=== PATIENT | male | born 1970 | race Caucasian/White ===

== ENCOUNTER 2023-08-16 09:11 | Emergency (ER) | payer OTHER, SELFPAY ==
[2023-08-16 09:17] VITALS: BP 142/78; PULSE 87; RESP 18; TEMP 36.7; O2SAT 100; BMI 24.6
--- NOTE | 2023-08-16 09:26 | CT_ITS ---
The [address] [address] Patient Name: REINA FARRELL MRN: [id number] date: 1970 Sex: M Assigned Patient Location: ER Current Patient Location: ER Accession/Order Number: [id number] Exam Date: 08/16/2023 09:40 Report Date: 08/16/2023 10:13 At the request of: BERNIE MORENO Procedure: CT abdomen pelvis w con EXAM: CT abdomen pelvis w con HISTORY: intermittent vomiting for months, diabetic COMPARISON: None. TECHNIQUE: 100 cc Omnipaque 300 Findings: ABDOMEN: The liver, gallbladder, spleen, a curious, and adrenal glands are unremarkable. There is mild nonspecific bilateral perinephric fat stranding. No renal stones or collecting system dilatation. The bilateral ureters are nondilated. Evaluation of the bowel is limited given the absence of oral contrast. There is wall thickening throughout the colon. This likely relates to distention with the exception of the wall thickening extending from the distal descending colon through the rectum. No bowel obstruction. The appendix is nondilated. The aorta is normal caliber. Mild atherosclerotic disease. No enlarged abdominal lymph nodes or free abdominal fluid. Pelvis: Mild circumferential bladder wall thickening likely relates to lack of distention. No calculi. The prostate is nonenlarged. No enlarged pelvic lymph nodes or free pelvic fluid. No aggressive sclerotic or lytic osseous lesions. There is an age-indeterminate mild T11 superior endplate compression fracture with approximately 10% loss of vertebral body height. CT/CT abdomen pelvis w con IMPRESSION: 1. Findings concerning for distal left hemicolonic colitis. 2. Mild T11 superior endplate age indeterminate compression fracture. Electronically authenticated by: DONNA REESE Date: 08/16/2023 10:13
--- NOTE | 2023-08-16 09:26 | ECG_ITS ---
The [facility] Test Date: 2023-08-16 Pat Name: REINA FARRELL Department: Room: - Gender: Male [employer]: : 1970 Requested By: [id number] Order Number: [id number] Reading MD: SHEILA HUMPHRIES Measurements Intervals [place] Rate: 77 P: 47 NM: 202 QRS: 4 QRSD: 78 T: 57 QT: 390 QTc: 422 Interpretive Statements 1100 Sinus rhythm 1470 with occasional supraventricular premature complexes 2420 RSR (QR) in lead V1/V2, consistent with right ventricular conduction delay 9140 abnormal rhythm ECG No previous ECG available for comparison Electronically Signed On 08-16-2023 22:19:24 EDT by SHEILA HUMPHRIES
--- NOTE | 2023-08-16 09:27 | ED_ITS ---
HPI - Nausea/Vomiting/Diarrhea General Chief complaint: Nausea/Vomiting/Diarrhea Stated complaint: NAUSEA AND VOMITING Time Seen by Provider: 08/16/23 09:19 Source: patient Mode of arrival: walk-in Limitations: no limitations History of Present Illness HPI Narrative: 53-year-old male presents for intermittent vomiting. He's been having this issue for months and he was at another hospital yesterday. He was referred to gastrointestinal specialist but they wouldn't see him for uncertain reason. he does not complain of abdominal pain. He was switched from metformin to Victoza several months ago. no fever or hematemesis. He's never had endoscopy. Related Data Home Medications Medication Instructions Recorded Confirmed liraglutide 0.6 mg/0.1 mL (18 mg/3 See Rx Instructions subcut .COMPLEX 08/16/23 08/16/23 mL) subcutaneous pen injector (Victoza 2-Lg) Previous Rx's Medication Instructions Recorded ciprofloxacin HCl 500 mg tablet 500 mg PO Q12H #20 tabs 08/16/23 (Cipro) metronidazole 500 mg tablet 500 mg PO TID #30 tabs 08/16/23 ondansetron HCl 4 mg tablet 4 mg PO Q6H PRN nausea and 08/16/23 vomiting #20 tabs Allergies Allergy/AdvReac Type Severity Reaction Status Date / Time bupropion [From Wellbutrin] AdvReac Intermediate Rash Verified 08/16/23 09:17 Review of Systems ROS Narrative A ten point review of systems is negative except as noted above. PFSH PFSH Social History Smoking status: Never smoker Exam Narrative Exam Narrative: Nurses note and vital signs reviewed and patient is not hypoxic. General: The patient appears well and in no apparent distress. Patient is resting comfortably on cart. Skin: Warm, dry, no pallor noted. There is no rash noted. Head: Normocephalic, atraumatic Eye: Normal conjunctiva, no drainage Ears, Nose, Mouth, and Throat: oral mucosa is moist. Nares patent. Cardiovascular: Regular Rate and Rhythm Respiratory: Patient is in no distress, no accessory muscle use, lungs are clear to auscultation, no wheezing, rales or rhonchi Back: non-tender GI: Normal bowel sounds, no tenderness to palpation, no masses appreciated. No rebound, guarding, or rigidity noted. Musculoskeletal: The patient has no evidence of calf tenderness, no pitting edema, symmetrical pulses noted bilaterally Neurological: A&O, normal speech Psychiatric: Cooperative Constitutional Vital Signs, click to edit/add: Last Vital Signs Temp 98.1 F 08/16/23 09:17 Pulse 87 08/16/23 09:17 Resp 18 08/16/23 09:17 BP 142/78 H 08/16/23 09:17 Pulse Ox 100 08/16/23 09:17 O2 Del Method Room Air 08/16/23 09:17 Course Vital Signs Vital signs: Vital Signs Temperature 98.1 F 08/16/23 09:17 Pulse Rate 87 08/16/23 09:17 Respiratory Rate 18 08/16/23 09:17 Blood Pressure 142/78 H 08/16/23 09:17 Pulse Oximetry 100 08/16/23 09:17 Oxygen Delivery Method Room Air 08/16/23 09:17 Temperature 98.1 F 08/16/23 09:17 Pulse Rate 87 08/16/23 09:17 Respiratory Rate 18 08/16/23 09:17 Blood Pressure 142/78 H 08/16/23 09:17 Pulse Oximetry 100 08/16/23 09:17 Oxygen Delivery Method Room Air 08/16/23 09:17 MDM - Nausea/Vomiting/Diarrhea MDM Narrative Medical decision making narrative: blood work is nonspecific. CT per radiologist shows colitis. He doesn't require admission to the hospital and he is described Cipro and Flagyl and is referred to general surgery for follow-up. Treatment diagnosis and follow-up were discussed with the patient. Differential Diagnosis Differential diagnosis: Likely gastroenteritis, drug-induced nausea and vomiting, dehydration and other (colitis, diverticulitis, esophagitis, duodenitis) Lab Data Attestation: I reviewed the patient's lab results. Labs: Lab Results 08/16/23 Range/Units 09:30 WBC 6.3 (4.0-11.0) 10^3/uL RBC 4.09 L (4.70-6.10) 10^6/uL Hgb 13.7 L (14.0-18.0) g/dL Hct 38.4 L (42.0-54.0) % MCV 93.9 (80.0-94.0) fL MCH 33.5 (25.9-34.0) pg MCHC 35.7 H (29.9-35.2) g/dL RDW 12.8 (11.0-15.0) % Plt Count 203 (150-450) 10^3/uL MPV 10.0 (9.5-13.5) fL Neut % (Auto) 63.2 (43.0-75.0) % Lymph % (Auto) 26.9 (20.5-60.0) % [place] % (Auto) 7.3 (1.7-12.0) % Eos % (Auto) 1.3 (0.9-7.0) % Baso % (Auto) 0.8 (0.2-2.0) % Neut # (Auto) 4.0 (1.4-6.5) 10^3/uL Lymph # (Auto) 1.7 (1.2-3.8) 10^3/uL [place] # (Auto) 0.5 (0.3-0.8) 10^3/uL Eos # (Auto) 0.1 (0.0-0.7) 10^3/uL Baso # (Auto) 0.1 (0.0-0.1) 10^3/uL Abs Immat Gran (auto) 0.03 (0.00-0.03) 10^3/uL Imm/Tot Granulo (auto) 0.5 (0.0-0.5) % Sodium 136 (136-145) mmol/L Potassium 3.9 (3.5-5.1) mmol/L Chloride 99 (98-107) mmol/L Carbon Dioxide 27.9 (21.0-32.0) mmol/L Anion Gap 13.0 BUN 18.0 (7.0-18.0) mg/dL Creatinine 1.40 H (0.70-1.30) mg/dL Est GFR ( Amer) >60 (>=60) Est GFR (Non-Af Amer) 53 L (>=60) BUN/Creatinine Ratio 12.9 Glucose 308 H (74-106) mg/dL Calcium 8.6 (8.5-10.1) mg/dL Total Bilirubin 0.6 (0.2-1.0) mg/dL Direct Bilirubin 0.1 (0.0-0.2) mg/dL AST 11 L (15-37) U/L ALT 22 (16-63) U/L Alkaline Phosphatase 70 (46-116) U/L Total Protein 7.5 (6.4-8.2) g/dL Albumin 3.7 (3.4-5.0) g/dL Globulin 3.8 g/dL Albumin/Globulin Ratio 1.0 Amylase 71 (25-115) U/L Lipase 226.0 (73.0-393.0) U/L Imaging Data CT scan - abdomen: Radiologist's impression: Procedure: CT abdomen pelvis w con EXAM: CT abdomen pelvis w con HISTORY: intermittent vomiting for months, diabetic COMPARISON: None. TECHNIQUE: 100 cc Omnipaque 300 Findings: ABDOMEN: The liver, gallbladder, spleen, a curious, and adrenal glands are unremarkable. There is mild nonspecific bilateral perinephric fat stranding. No renal stones or collecting system dilatation. The bilateral ureters are nondilated. Evaluation of the bowel is limited given the absence of oral contrast. There is wall thickening throughout the colon. This likely relates to distention with the exception of the wall thickening extending from the distal descending colon through the rectum. No bowel obstruction. The appendix is nondilated. The aorta is normal caliber. Mild atherosclerotic disease. No enlarged abdominal lymph nodes or free abdominal fluid. Pelvis: Mild circumferential bladder wall thickening likely relates to lack of distention. No calculi. The prostate is nonenlarged. No enlarged pelvic lymph nodes or free pelvic fluid. No aggressive sclerotic or lytic osseous lesions. There is an age-indeterminate mild T11 superior endplate compression fracture with approximately 10% loss of vertebral body height. IMPRESSION: 1. Findings concerning for distal left hemicolonic colitis. 2. Mild T11 superior endplate age indeterminate compression fracture. Electronically authenticated by: DONNA REESE Date: 08/16/2023 10:13 ECG Data Attestation: I personally reviewed and interpreted this ECG as follows: (EKG on my interpretation shows normal sinus rhythm without acute change and a rate of 77.) Discharge Plan Discharge Chief Complaint: Nausea/Vomiting/Diarrhea Clinical Impression: Colitis Patient Disposition: Home, Self-Care Time of Disposition Decision: 10:26 Condition: Good Mode of Transportation: Private Vehicle Prescriptions / Home Meds: New ciprofloxacin HCl [Cipro] 500 mg tablet 500 mg PO Q12H Qty: 20 0RF metronidazole 500 mg tablet 500 mg PO TID Qty: 30 0RF ondansetron HCl 4 mg tablet 4 mg PO Q6H PRN (Reason: nausea and vomiting) Qty: 20 0RF No Action Victoza 2-Lg 0.6 mg/0.1 mL (18 mg/3 mL) pen injector See Rx Instructions .ROUTE .COMPLEX Rx Instructions: inject 0.6mg subcutaneously once daily x 7 days; then 1.2mg daily, not to exceed 1.8mg/day Instructions: Colitis (ED) Additional Instructions: F/U with Dr Castro Stand Alone Forms: Portal Instructions Referrals: Physician,Non-Staff, MD [Primary Care Provider] - 1 week
[2023-08-16] MEDS: ONDANSETRON PF 4 MG/2 ML VIAL IV (09:31)
[2023-08-16] MEDS: 0.9 % SODIUM CHLORIDE 1,000 ML 1000 ML IV (09:31)
[2023-08-16 09:37] LABS: Basophils Absolute Auto 0.1 10^3/uL (0.0-0.1); Basophils Percent Auto 0.8 % (0.2-2.0); Eosinophils Absolute Auto 0.1 10^3/uL (0.0-0.7); Eosinophils Percent Auto 1.3 % (0.9-7.0); Hematocrit 38.4 % (42.0-54.0); Hemoglobin 13.7 g/dL (14.0-18.0); Immature Granulocytes Abs Auto 0.03 10^3/uL (0.00-0.03); Immature Granulocytes Pct Auto 0.5 % (0.0-0.5); Lymphocytes Absolute Auto 1.7 10^3/uL (1.2-3.8); Lymphocytes Percent Auto 26.9 % (20.5-60.0); Mean Corpuscular HGB Conc 35.7 g/dL (29.9-35.2); Mean Corpuscular Hemoglobin 33.5 pg (25.9-34.0); Mean Corpuscular Volume 93.9 fL (80.0-94.0); Monocytes Absolute Auto 0.5 10^3/uL (0.3-0.8); Monocytes Percent Auto 7.3 % (1.7-12.0); Neutrophils Percent Auto 63.2 % (43.0-75.0); Platelet Count 203 10^3/uL (150-450); Red Blood Count 4.09 10^6/uL (4.70-6.10); Red Cell Distribution Width 12.8 % (11.0-15.0); White Blood Count 6.3 10^3/uL (4.0-11.0)
[2023-08-16 09:44] LABS: BUN Creatinine Ratio 12.9; Calcium 8.6 mg/dL (8.5-10.1); Carbon Dioxide 27.9 mmol/L (21.0-32.0); Chloride 99 mmol/L (98-107); Estimated GFR (African America >60 (>=60); Estimated GFR (Non-African Ame 53 (>=60); Glucose 308 mg/dL (74-106); Potassium 3.9 mmol/L (3.5-5.1); Sodium 136 mmol/L (136-145)
[2023-08-16 09:49] LABS: Alanine Aminotransferase 22 U/L (16-63); Albumin Level 3.7 g/dL (3.4-5.0); Alkaline Phosphatase 70 U/L (46-116); Amylase 71 U/L (25-115); Aspartate Amino Transferase 11 U/L (15-37); Bilirubin Direct 0.1 mg/dL (0.0-0.2); Bilirubin Total 0.6 mg/dL (0.2-1.0); Globulin 3.8 g/dL; Total Protein 7.5 g/dL (6.4-8.2)
== END 2023-08-16 10:40 | disposition home or self-care (01) ==
PROVIDERS: Emergency Provider Emergency Medicine
DX: K52.9 Noninfective gastroenteritis and colitis, unspecified (principal); Z79.85 Long-term (current) use of injectable non-insulin antidiabetic drugs
CPT/HCPCS: 36415; 74177; 80048; 80076; 81001; 82150; 83690; 85025; 93005; 96374; 99285; Q9967

== ENCOUNTER 2023-09-20 14:42 | Outpatient (OUT) | payer OTHER, SELFPAY | END 2023-09-20 14:43 | disposition home or self-care (01) | LOC: PST 14:43 | PROVIDERS: Visit Provider Surgery | DX: Z01.818 Encounter for other preprocedural examination (principal); R11.10 Vomiting, unspecified; K52.9 Noninfective gastroenteritis and colitis, unspecified ==

== ENCOUNTER 2023-11-02 07:29 | Day surgery (SDC) | payer OTHER, SELFPAY ==
[2023-11-02 07:45] VITALS: BMI 26.9
[2023-11-02 07:50] LABS: Glucometer 247 mg/dL (74-106)
[2023-11-02] MEDS: LACTATED RINGER'S SOLUTION 1,000 ML 50 ML IV (07:56)
--- NOTE | 2023-11-02 08:34 | P.GSPRC_ITS ---
Date of procedure: 11/02/23 Indications for Procedure: nausea/ vomiting/weight loss/abnormal ct gi tract Pre-op diagnosis: nausea/vomiting/weight loss/ abnormal ct gi tract Post-op diagnosis: other (esophagitis rule out Ochoa's esophagus; Normal stomach and duodenum; poor bowel prep colon Will need to return at later dateafter two days of clear liquids and different bowel prep) Procedure: colonoscopy EGD with biopsy antrumand distal esophagus and midesophagus Findings: esophagitis rule out Ochoa's esophagus GE junction , stomach and duodenum Normal colon but bowel prep was suboptimal patient, will need to return and later date for repeat colonoscopy after clear liquids and different bowel prep. Anesthesia: MAC Surgeon: Rudy Campbell Procedure Summary: The patient was taken to the operating suite and placed in the left lateral position after being given IV conscious sedation as above.the Olympus EGD scope was advanced under direct visualization to the posterior pharynx esophagus into the stomach into the 1st 2nd 3rd and 4th portions of the duodenum which were n ormal. There were no ulcers polyps or tumors seen. The scope was returned to the stomach retroflexed on itself looking the GE junction which was normal. Random biopsies of the antrum were taken to rule out gastritis and H. pylori on appeared grossly normal. The scope was returned to the distal esophagus where it appears that he has a short segment Ochoa's esophagus and multiple biopsies were taken in all quadrants and hemostasis maintained. The scope was then returned to the mid esophagus where there was a papular lesion that was biopsied ?2 and hemostasis maintained. The rest the esophagus was normal. Rectal digital exam normal. No external? hemorrhoids noted. The Olympus video colonoscope was then advanced under direct visualization into the rectum, sigmoid colon, descending colon, transverse colon, and ascending colon to the ileocecal valve which was visualized. appendiceal lumen was visualized but patient had a large amount of fecal materialthroughout the colon this was a subo ptimal prep. Anything small could've been missed. There were no obvious cancers but again it was an incomplete prep and patient will need to return at a later date. There were no polyps, tumors, or diverticular disease seen. The scope was then slowly withdrawn with air being desufflated as the scope was withdrawn and again finding no abnormalities. There were no internal hemorrhoids or external hemorrhoids noted. The patient tolerated the procedure well and went to the recovery area in satisfactory condition. Patient will be advised to return at a later date for repeat colonoscopy with a different bowel prep and two days of clear liquids because anything small could've been missed due to the large amount of stool present throughout the colon. Estimated blood loss (mL): 0 Complications: No Condition: stable Disposition: PACU
[2023-11-02 09:32] VITALS: BP 95/58; PULSE 60; RESP 16; O2SAT 98
[2023-11-02 10:02] VITALS: BP 99/55; PULSE 65; RESP 16; O2SAT 94
[2023-11-02 10:50] VITALS: BP 93/62; PULSE 54; RESP 16; O2SAT 92
[2023-11-03 15:52] LABS: H Pylori Tissue, Urease Negative
--- OUTSIDE RECORDS SUMMARY | 2023-11-16 01:40 | XMS_ITS | CCD ---
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 above: Performed By: #### C BC, LIPASE, HEPATIC, BMP #### [facility] [address] Bilirubin.indirect [Mass/Vol] 0.20 mg/dL High 0.03-0 .18 [facility] Comment on above: Performed By: #### C BC, LIPASE, HEPATIC, BMP #### [facility] [address] Globulin (S) [Mass/Vol] 3.3 g/dL Normal [facility] Comment on above: Performed By: #### C BC, LIPASE, HEPATIC, BMP #### [facility] [address] Protein [Mass/Vol] 7.6 g/dL Normal 6.4-8.9 [facility] Comment on above: Performed By: #### C BC, LIPASE, HEPATIC, BMP #### [facility] [address] [place] [address] Leukocytes [#/volume] correc billy for nucleated erythrocytes in Blood by Automated counOrdered By: Kourtney Samson on 08-15-2023 WBC corrected for nucl RBC A uto (Bld) [#/Vol] 6.2 10*3/uL 4.1-10.5 [facility] Lipaseon 08-15-2023 Lipase [Catalytic activity/Vol] 59.0 U/L Normal 11.0 -82.0 [facility] Comment on above: Result Comment: PERF ORMED BY: [place] [id number] PATHOLOGIST BYPRODUCT ENGINEER ANIL GUAMAN M.D. Performed By: #### R AUDRA PANEL UPP., BIOFIRECOVNOTDE #### [facility] [address] Lipase [Enzymatic activity/v olume] in Serum or PlasmaOrdered By: Kourtney Samson on 08-15-2023 Lipase [Catalytic activity/Vol] 59.0 U/L 11.0 -82.0 [facility] Lymphocytes Auto (Bld) [#/Vo l]Ordered By: Kourtney Samson on 08-15-2023 Lymphocytes (Bld) [#/Vol] 2.4 10*3/uL 1.00-4.8 [facility] Lymphocytes/100 WBC Auto (Bl d)Ordered By: Kourtney Samson on 08-15-2023 Lymphocytes/100 WBC (Bld) 38.6 % . [facility] MCH Auto (RBC) [Entitic mass ]Ordered By: Kourtney Samson on 08-15-2023 MCH (RBC) [Entitic mass] 32.8 pg 27.5-35.2 [facility] MCHC Auto (RBC) [Mass/Vol]Or dered By: Kourtney Samson on 08-15-2023 MCHC (RBC) [Mass/Vol] 34.9 g/dL 32.5-35.6 [facility] MCV Auto (RBC) [Entitic vol] Ordered By: Kourtney Samson on 08-15-2023 MCV (RBC) [Entitic vol] 94.0 fL 83.5-101 [facility] Monocyte distribution width [Entitic volume] in Blood by AutomatedOrdered By: Kourtney Samson on 08-15-2023 Monocyte distribution width Auto (Bld) [Entitic vol] 17.28 % 0.00-20.00 [facility] Monocytes Auto (Bld) [#/Vol] Ordered By: Kourtney Samson on 08-15-2023 Monocytes (Bld) [#/Vol] 0.4 10*3/uL 0.0-0.8 [facility] Monocytes/100 WBC Auto (Bld) Ordered By: Kourtney Samson on 08-15-2023 Monocytes/100 WBC (Bld) 7.2 % . [facility] Neutrophils Auto (Bld) [#/Vo l]Ordered By: Kourtney Samson on 08-15-2023 Neutrophils (Bld) [#/Vol] 3.2 10*3/uL 1.8-7.7 [facility] Neutrophils/100 WBC Auto (Bl d)Ordered By: Kourtney Samson on 08-15-2023 Neutrophils/100 WBC (Bld) 51.7 % . [facility] No Panel InformationOrdered By: Kourtney Samson on 08-15-2023 Estimated GFR (CKD-EPI) > 60.0 mL/Min [facility] Creatinine Clearanc e (Chem 69.19 [facility] Nucleated erythrocytes [Pres ence] in Blood by Automated countOrdered By: Kourtney Samson on 08-15-2023 Nucleated RBC Auto Ql (Bld) 0.1 /100{WBC} 0-0.5 [facility] Platelet mean volume Auto (B ld) [Entitic vol]Ordered By: Kourtney Samson on 08-15-2023 Platelet mean volume (Bld) [Entitic vol] 8.3 fL 6.6-10.1 [facility] Platelets Auto (Bld) [#/Vol] Ordered By: Kourtney Samson on 08-15-2023 Platelets (Bld) [#/Vol] 202 10*3/uL 150-450 [facility] Potassium [Moles/volume] in Serum or PlasmaOrdered By: Kourtney Samson on 08-15-2023 Potassium [Moles/Vol] 4.1 mmol/L 3.5-5.1 [facility] Protein [Mass/volume] in Ser um or PlasmaOrdered By: Kourtney Samson on 08-15-2023 Protein [Mass/Vol] 7.6 g/dL 6.4-8.9 [facility] RBC Auto (Bld) [#/Vol]Ordere d By: Kourtney Samson on 08-15-2023 RBC (Bld) [#/Vol] 4.35 10*6/uL 3.90-5.60 [facility] Serum or plasma albumin/glob ulin mass ratioOrdered By: Kourtney Samson on 08-15-2023 Albumin/Globulin [Mass ratio] 1.3 {ratio} [facility] Serum or plasma anion gap de terminationOrdered By: Kourtney Samson on 08-15-2023 Anion gap [Moles/Vol] 11.8 mmol/L 6.0-15.0 [facility] Serum or plasma non-glucuron idated bilirubin measurement (mass/volume)Ordered By: Kourtney Samson on 08-15-2023 Bilirubin.indirect [Mass/Vol] 0.9 mg/dL [facility] Sodium [Moles/volume] in Ser um or PlasmaOrdered By: Kourtney Samson on 08-15-2023 Sodium [Moles/Vol] 135 mmol/L 136-145 [facility] Urea nitrogen [Mass/volume] in Serum or PlasmaOrdered By: Kourtney Samson on 08-15-2023 Urea nitrogen [Mass/Vol] 23 mg/dL 7-25 [facility] WBC Auto (Bld) [#/Vol]Ordere d By: Kourtney Samson on 08-15-2023 WBC (Bld) [#/Vol] 6.2 10*3/uL 4.1-10.5 [facility] Alanine aminotransferase [En zymatic activity/volume] in Serum or PlasmaOrdered By: Grayson Duvall on 07-23-2023 ALT [Catalytic activity/Vol] 19 U/L 7-52 [facility] Albumin [Mass/volume] in Ser um or Plasma by Bromocresol green (BCG) dye binding methoOrdered By: Grayson Duvall on 07-23-2023 Albumin BCG dye [Mass/Vol] 4.7 g/dL 3.5-5.7 [facility] Alkaline phosphatase [Enzyma tic activity/volume] in Serum or PlasmaOrdered By: Grayson Duvall on 07-23-2023 ALP [Catalytic activity/Vol] 65 U/L 34-104 [facility] Aspartate aminotransferase [ Enzymatic activity/volume] in Serum or PlasmaOrdered By: Grayson Duvall on 07-23-2023 AST [Catalytic activity/Vol] 16 U/L 13-39 [facility] Basophils Auto (Bld) [#/Vol] Ordered By: Grayson Duvall on 07-23-2023 Basophils (Bld) [#/Vol] 0.1 10*3/uL 0.0-0.2 [facility] Basophils/100 WBC Auto (Bld) Ordered By: Grayson Duvall on 07-23-2023 Basophils/100 WBC (Bld) 0.8 % . [facility] Bilirubin.total [Mass/volume ] in Serum or PlasmaOrdered By: Grayson Duvall on 07-23-2023 Bilirubin [Mass/Vol] 0.8 mg/dL 0.3-1.0 [facility] Calcium [Mass/volume] in Ser um or PlasmaOrdered By: Grayson Duvall on 07-23-2023 Calcium [Mass/Vol] 9.3 mg/dL 8.6-10.3 [facility] Carbon dioxide, total [Moles /volume] in Serum or PlasmaOrdered By: Grayson Duvall on 07-23-2023 CO2 [Moles/Vol] 28.5 mmol/L 21.0-31.0 [facility] Chloride [Moles/volume] in S tino or PlasmaOrdered By: Grayson Duvall on 07-23-2023 Chloride [Moles/Vol] 95 mmol/L 98-107 [facility] Complete Blood Count Auto Di ffon 07-23-2023 Basophils (Bld) [#/Vol] 0.1 10*3/uL Normal 0.0-0.2 [facility] Comment on above: Result Comment: PERF ORMED BY: [place] [address] PATHOLOGIST BYPRODUCT ENGINEER ANIL GUAMAN M.D. Performed By: #### C MP, TSH3, LIPID #### [facility] [address] [place] [address] [place] Basophils/100 WBC (Bld) 0.8 % Normal . [facility] Comment on above: Performed By: #### C MP, TSH3, LIPID #### [facility] [address] [place] [address] [place] Eosinophils (Bld) [#/Vol] 0.1 10*3/uL Normal 0.0-0.45 [facility] Comment on above: Performed By: #### C MP, TSH3, LIPID #### [facility] [address] [place] [address] [place] Eosinophils/100 WBC (Bld) 1.1 % Normal . [facility] Comment on above: Performed By: #### C MP, TSH3, LIPID #### [address] Erythrocyte distribution wid th (RBC) [Ratio] 13.1 % Normal 12.0-14.8 [facility] Comment on above: Performed By: #### C MP, TSH3, LIPID #### [address] Hematocrit (Bld) [Volume fraction] 39.0 % Normal 38.8-50.0 [facility] Comment on above: Performed By: #### C MP, TSH3, LIPID #### [address] Hemoglobin (Bld) [Mass/Vol] 13.6 g/dL Normal 13.0-17. 0 [facility] Comment on above: Performed By: #### C MP, TSH3, LIPID #### [address] Lymphocytes (Bld) [#/Vol] 2.2 10*3/uL Normal 1.00-4.8 [facility] Comment on above: Performed By: #### C MP, TSH3, LIPID #### [address] Lymphocytes/100 WBC (Bld) 23.0 % Normal . [facility] Comment on above: Performed By: #### C MP, TSH3, LIPID #### [address] MCH (RBC) [Entitic mass] 32.5 pg Normal 27.5-35.2 [facility] Comment on above: Performed By: #### C MP, TSH3, LIPID #### [address] MCV (RBC) [Entitic vol] 93.2 fL Normal 83.5-101 [facility] Comment on above: Performed By: #### C MP, TSH3, LIPID #### [address] [place] [address] [place] Mean Corpuscular HGB Conc 34.8 g/dL Normal 32.5-35.6 [facility] Comment on above: Performed By: #### C MP, TSH3, LIPID #### [facility] [address] Monocytes (Bld) [#/Vol] 0.6 10*3/uL Normal 0.0-0.8 [facility] Comment on above: Performed By: #### C MP, TSH3, LIPID #### [facility] [address] [place] [address] [place] Monocytes/100 WBC (Bld) 18.02 % Normal 0.00-20.00 [facility] Comment on above: Performed By: #### C MP, TSH3, LIPID #### [facility] [address] [place] [address] [place] Monocytes/100 WBC (Bld) 6.7 % Normal . [facility] Comment on above: Performed By: #### C MP, TSH3, LIPID #### [facility] [address] [place] [address] [place] Neutrophils (Bld) [#/Vol] 6.5 10*3/uL Normal 1.8-7.7 [facility] Comment on above: Performed By: #### C MP, TSH3, LIPID #### [facility] [address] [place] [address] [place] Neutrophils/100 WBC (Bld) 68.4 % Normal . [facility] Comment on above: Performed By: #### C MP, TSH3, LIPID #### [facility] [address] [place] [address] [place] NRBC% 0.0 /100{WBC} Normal 0-0.5 [facility] Comment on above: Performed By: #### C MP, TSH3, LIPID #### [facility] [address] [place] [address] [place] Platelet mean volume (Bld) [Entitic vol] 8.5 fL Normal 6.6-10.1 [facility] Comment on above: Performed By: #### C MP, TSH3, LIPID #### [address] Platelets (Bld) [#/Vol] 235 10*3/uL Normal 150-450 [facility] Comment on above: Performed By: #### C MP, TSH3, LIPID #### [address] RBC (Bld) [#/Vol] 4.18 10*6/uL Normal 3.90-5.60 [facility] Comment on above: Performed By: #### C MP, TSH3, LIPID #### [address] WBC (Bld) [#/Vol] 9.5 10*3/uL Normal 4.1-10.5 [facility] Comment on above: Performed By: #### C MP, TSH3, LIPID #### [address] Comprehensive Metabolic Pane rudolph 07-23-2023 Albumin [Mass/Vol] 4.7 g/dL Normal 3.5-5.7 [facility] Comment on above: Performed By: #### C MP, TSH3, LIPID #### [address] Albumin/Globulin [Mass ratio] 1.4 {ratio} Normal [facility] Comment on above: Performed By: #### C MP, TSH3, LIPID #### [address] ALP [Catalytic activity/Vol] 65 U/L Normal 34-104 [facility] Comment on above: Performed By: #### C MP, TSH3, LIPID #### [address] ALT [Catalytic activity/Vol] 19 U/L Normal 7-52 [facility] Comment on above: Performed By: #### C MP, TSH3, LIPID #### [address] Anion gap [Moles/Vol] 16.3 mmol/L High 6.0-15.0 [facility] Comment on above: Performed By: #### C MP, TSH3, LIPID #### [facility] [address] AST [Catalytic activity/Vol] 16 U/L Normal 13-39 [facility] Comment on above: Performed By: #### C MP, TSH3, LIPID #### [facility] [address] Bilirubin [Mass/Vol] 0.8 mg/dL Normal 0.3-1.0 [facility] Comment on above: Performed By: #### C MP, TSH3, LIPID #### [facility] [address] [place] [address] Calcium [Mass/Vol] 9.3 mg/dL Normal 8.6-10.3 [facility] Comment on above: Performed By: #### C MP, TSH3, LIPID #### [address] Chloride [Moles/Vol] 95 mmol/L Low 98-107 [facility] Comment on above: Performed By: #### C MP, TSH3, LIPID #### [address] CO2 [Moles/Vol] 28.5 mmol/L Normal 21.0-31.0 [facility] Comment on above: Performed By: #### C MP, TSH3, LIPID #### [facility] [address] [place] [address] Creatinine [Mass/Vol] 1.08 mg/dL Normal 0.70-1.30 [facility] Comment on above: Performed By: #### C MP, TSH3, LIPID #### [facility] [address] [place] [address] Creatinine Clr Calc Pharmacy 83.28 Normal [facility] Comment on above: Result Comment: PERF ORMED BY: [place] [address] PATHOLOGIST BYPRODUCT ENGINEER JIANLAN SUN M.D. Performed By: #### C MP, TSH3, LIPID #### [facility] [address] [place] [address] [place] GFR/1.73 sq M.predicted MDRD (S/P/Bld) [Vol rate/Area] mL/min/{1.73_m2} Normal [facility] Comment on above: Performed By: #### C MP, TSH3, LIPID #### [facility] [address] [place] [address] [place] Globulin (S) [Mass/Vol] 3.3 g/dL Normal [facility] Comment on above: Performed By: #### C MP, TSH3, LIPID #### [facility] [address] Glucose [Mass/Vol] 164 mg/dL High 70-100 [facility] Comment on above: Result Comment: [place] Glucose Reference Range is dependent on time and content of last meal. Glucose of more than 200 mg/dL in a nonstressed, ambulatory subject supports the diagnosis of Diabetes Mellitus. ADA recommended reference range Performed By: #### C MP, TSH3, LIPID #### [facility] [address] [place] [address] [place] Potassium [Moles/Vol] 3.8 mmol/L Normal 3.5-5.1 [facility] Comment on above: Performed By: #### C MP, TSH3, LIPID #### [facility] [address] [place] [address] [place] Protein [Mass/Vol] 8.0 g/dL Normal 6.4-8.9 [facility] Comment on above: Performed By: #### C MP, TSH3, LIPID #### [facility] [address] [place] [address] [place] Sodium [Moles/Vol] 136 mmol/L Normal 136-145 [facility] Comment on above: Performed By: #### C MP, TSH3, LIPID #### [facility] [address] [place] [id number] [place] Urea nitrogen [Mass/Vol] 14 mg/dL Normal 7-25 [facility] Comment on above: Performed By: #### C MP, TSH3, LIPID #### [facility] [address] [place] [id number] [facility] Creatinine [Mass/volume] in Serum or PlasmaOrdered By: Grayson Duvall on 07-23-2023 Creatinine [Mass/Vol] 1.08 mg/dL 0.70-1.30 [facility] ECG 12 lead ECGon 07-23-2023 ECG 12 lead ECG [facility] [place] [address] [place] [address] Electrocardiograph Report Signed 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 MR#: [id number] : 1970 Acct:[id number] Age/Sex: 53 / M ADM Date: 07/22/23 Loc: ER Room: Type: [facility] ER Attending Dr: Ordering Provider: Grayson Duvall DO Date of Service: 07/23/23 ECG/ECG 12 lead ECG: Dizziness Copies to: Test Reason : Blood Pressure : / mmHG Vent. Rate : 074 BPM Atrial Rate : 074 BPM P-R Int : 178 ms QRS Dur : 084 ms QT Int : 422 ms P-R-T Axes : 043 -08 035 degrees QTc Int : 468 ms Normal sinus rhythm Minimal voltage criteria for LVH, may be normal variant Cannot rule out Anterior infarct , age undetermined Abnormal ECG When compared with ECG of 30-JUN-2023 10:23, Confirmed by GRAYSON DUVALL DO ([id number]) on 07/23/2023 5:17:38 AM Referred By: Electronically Signed By:GRAYSON DUVALL DO Transcribed By: MUS Signed By Grayson Duvall DO 0517 Normal [facility] Eosinophils Auto (Bld) [#/Vo l]Ordered By: Grayson Duvall on 07-23-2023 Eosinophils (Bld) [#/Vol] 0.1 10*3/uL 0.0-0.45 [facility] Eosinophils/100 WBC Auto (Bl d)Ordered By: Grayson Duvall on 07-23-2023 Eosinophils/100 WBC (Bld) 1.1 % . [facility] Erythrocyte distribution wid th Auto (RBC) [Ratio]Ordered By: Grayson Duvall on 07-23-2023 Erythrocyte distribution wid th (RBC) [Ratio] 13.1 % 12.0-14.8 [facility] Globulin Calc (S) [Mass/Vol] Ordered By: Grayson Duvall on 07-23-2023 Globulin (S) [Mass/Vol] 3.3 g/dL [facility] Glucose [Mass/volume] in Ser um or PlasmaOrdered By: Grayson Duvall on 07-23-2023 Glucose [Mass/Vol] 164 mg/dL 70-100 [facility] Comment on above: ADA recommended refe rence rangeRandom Glucose Reference Range is dependent on time and content of last meal. Glucose of more than 200 mg/dL in a nonstressed, ambulatory subject supports the diagnosis of Diabetes Mellitus. Hematocrit Auto (Bld) [Volum e fraction]Ordered By: Grayson Duvall on 07-23-2023 Hematocrit (Bld) [Volume fraction] 39.0 % 3 8.8-50.0 [facility] Hemoglobin [Mass/volume] in BloodOrdered By: Grayson Duvall on 07-23-2023 Hemoglobin (Bld) [Mass/Vol] 13.6 g/dL 13.0-17. 0 [facility] Leukocytes [#/volume] correc billy for nucleated erythrocytes in Blood by Automated counOrdered By: Grayson Duvall on 07-23-2023 WBC corrected for nucl RBC A uto (Bld) [#/Vol] 9.5 10*3/uL 4.1-10.5 [facility] Lymphocytes Auto (Bld) [#/Vo l]Ordered By: Grayson Duvall on 07-23-2023 Lymphocytes (Bld) [#/Vol] 2.2 10*3/uL 1.00-4.8 [facility] Lymphocytes/100 WBC Auto (Bl d)Ordered By: Grayson Duvall on 07-23-2023 Lymphocytes/100 WBC (Bld) 23.0 % . [facility] MCH Auto (RBC) [Entitic mass ]Ordered By: Grayson Duvall on 07-23-2023 MCH (RBC) [Entitic mass] 32.5 pg 27.5-35.2 [facility] MCHC Auto (RBC) [Mass/Vol]Or dered By: Grayson Duvall on 07-23-2023 MCHC (RBC) [Mass/Vol] 34.8 g/dL 32.5-35.6 [facility] MCV Auto (RBC) [Entitic vol] Ordered By: Grayson Duvall on 07-23-2023 MCV (RBC) [Entitic vol] 93.2 fL 83.5-101 [facility] Monocyte distribution width [Entitic volume] in Blood by AutomatedOrdered By: Grayson Duvall on 07-23-2023 Monocyte distribution width Auto (Bld) [Entitic vol] 18.02 % 0.00-20.00 [facility] Monocytes Auto (Bld) [#/Vol] Ordered By: Grayson Duvall on 07-23-2023 Monocytes (Bld) [#/Vol] 0.6 10*3/uL 0.0-0.8 [facility] Monocytes/100 WBC Auto (Bld) Ordered By: Grayson Duvall on 07-23-2023 Monocytes/100 WBC (Bld) 6.7 % . [facility] Neutrophils Auto (Bld) [#/Vo l]Ordered By: Grayson Duvall on 07-23-2023 Neutrophils (Bld) [#/Vol] 6.5 10*3/uL 1.8-7.7 [facility] Neutrophils/100 WBC Auto (Bl d)Ordered By: Grayson Duvall on 07-23-2023 Neutrophils/100 WBC (Bld) 68.4 % . [facility] No Panel InformationOrdered By: Grayson Duvall on 07-23-2023 Estimated GFR (CKD-EPI) > 60.0 mL/Min [facility] Creatinine Clearanc e (Chem 83.28 [facility] Nucleated erythrocytes [Pres ence] in Blood by Automated countOrdered By: Grayson Duvall on 07-23-2023 Nucleated RBC Auto Ql (Bld) 0.0 /100{WBC} 0-0.5 [facility] Platelet mean volume Auto (B ld) [Entitic vol]Ordered By: Grayson Duvall on 07-23-2023 Platelet mean volume (Bld) [Entitic vol] 8.5 fL 6.6-10.1 [facility] Platelets Auto (Bld) [#/Vol] Ordered By: Grayson Duvall on 07-23-2023 Platelets (Bld) [#/Vol] 235 10*3/uL 150-450 [facility] Potassium [Moles/volume] in Serum or PlasmaOrdered By: Grayson Duvall on 07-23-2023 Potassium [Moles/Vol] 3.8 mmol/L 3.5-5.1 [facility] Protein [Mass/volume] in Ser um or PlasmaOrdered By: Grayson Duvall on 07-23-2023 Protein [Mass/Vol] 8.0 g/dL 6.4-8.9 [facility] RBC Auto (Bld) [#/Vol]Ordere d By: Grayson Duvall on 07-23-2023 RBC (Bld) [#/Vol] 4.18 10*6/uL 3.90-5.60 [facility] Serum or plasma albumin/glob ulin mass ratioOrdered By: Grayson Duvall on 07-23-2023 Albumin/Globulin [Mass ratio] 1.4 {ratio} [facility] Serum or plasma anion gap de terminationOrdered By: Grayson Duvall on 07-23-2023 Anion gap [Moles/Vol] 16.3 mmol/L 6.0-15.0 [facility] Sodium [Moles/volume] in Ser um or PlasmaOrdered By: Grayson Duvall on 07-23-2023 Sodium [Moles/Vol] 136 mmol/L 136-145 [facility] Troponin I High Sensitivityo n 07-23-2023 Troponin I High Sensitivity 6.6 pg/mL Normal 0.0-20.0 [facility] Comment on above: Result Comment: PERF ORMED BY: [facility] [address] [place] [address] PATHOLOGIST BYPRODUCT ENGINEER ANIL GUAMAN M.D. Performed By: #### C MP, TSH3, LIPID #### [facility] [address] [place] [address] [place] Troponin I.cardiac [Mass/vol ume] in Serum or Plasma by Detection limit <= 0.01 ng/Ordered By: Grayson Duvall on 07-23-2023 Troponin I.cardiac DL <= 0.0 1 ng/mL [Mass/Vol] 6.6 pg/mL 0.0-20.0 [facility] Urea nitrogen [Mass/volume] in Serum or PlasmaOrdered By: Grayson Duvall on 07-23-2023 Urea nitrogen [Mass/Vol] 14 mg/dL 06-21 [facility] WBC Auto (Bld) [#/Vol]Ordere d By: Grayson Duvall on 07-23-2023 WBC (Bld) [#/Vol] 9.5 10*3/uL 4.1-10.5 [facility] XR chest 2V*on 07-23-2023 XR chest 2V* [facility] [place] [address] XRay Report Signed 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 MR#: [id number] : 1970 Acct:[id number] Age/Sex: 53 / M ADM Date: 07/22/23 Loc: ER Room: Type: [facility] ER Attending Dr: Copies to: Grayson Duvall DO Ordering Provider: Grayson Duvall DO Date of Service: 07/23/23 XR/XR chest 2V*: cp, esoph ob Chest 2 views CLINICAL HISTORY: Difficulty swallowing and dry mouth. COMPARISON: Chest 06/24/2023 FINDINGS: Heart normal size. Lungs are clear. No free air. XR/XR chest 2V* IMPRESSION: NO ACUTE CARDIOPULMONARY ABNORMALITY. Impression dictated by: Stevie Flores Jr., D.OMickey07/23/2023 10:31 AM Dictation Location: [place] [address] Transcribed By: [facility] 07/23/23 1031 Dictated By: Stevie Flores Jr, DO 07/23/23 1030 Signed By: 07/23/23 1031 Normal [facility] Alanine aminotransferase [En zymatic activity/volume] in Serum or PlasmaOrdered By: Chen Acosta on 06-30-2023 ALT [Catalytic activity/Vol] 19 U/L [facility] Albumin [Mass/volume] in Ser um or Plasma by Bromocresol green (BCG) dye binding methoOrdered By: Chen Acosta on 06-30-2023 Albumin BCG dye [Mass/Vol] 4.2 g/dL 3.5-5.7 [facility] Alkaline phosphatase [Enzyma tic activity/volume] in Serum or PlasmaOrdered By: Chen Acosta on 06-30-2023 ALP [Catalytic activity/Vol] 59 U/L 34-104 [facility] Aspartate aminotransferase [ Enzymatic activity/volume] in Serum or PlasmaOrdered By: Chen Acosta on 06-30-2023 AST [Catalytic activity/Vol] 14 U/L 13-39 [facility] Basophils Auto (Bld) [#/Vol] Ordered By: Chen Acosta on 06-30-2023 Basophils (Bld) [#/Vol] 0.1 10*3/uL 0.0-0.2 [facility] Basophils/100 WBC Auto (Bld) Ordered By: Chen Acosta on 06-30-2023 Basophils/100 WBC (Bld) 2.0 % . [facility] Beta Hydroxybuterateon 06-30 Beta Hydroxybuterate < 0.10 Normal 0.02-0.27 [facility] [facility] Comment on above: Result Comment: PERF ORMED BY: [place] [id number] PATHOLOGIST BYPRODUCT ENGINEER ANIL GUAMAN M.D. Performed By: #### C MP, TSH3, LIPID #### [address] Beta hydroxybutyrate [Moles/ volume] in Serum or PlasmaOrdered By: Chen Acosta on 06-30-2023 Beta hydroxybutyrate [Moles/Vol] < 0.10 mmol/L 0.02-0.27 [facility] Bilirubin Test strip Ql (U)O rdered By: Chen Acosta on 06-30-2023 Bilirubin Ql (U) Negative Negative [facility] Bilirubin.total [Mass/volume ] in Serum or PlasmaOrdered By: Chen Acosta on 06-30-2023 Bilirubin [Mass/Vol] 0.5 mg/dL 0.3-1.0 [facility] Calcium [Mass/volume] in Ser um or PlasmaOrdered By: Chen Acosta on 06-30-2023 Calcium [Mass/Vol] 9.2 mg/dL 8.6-10.3 [facility] Carbon dioxide, total [Moles /volume] in Serum or PlasmaOrdered By: Chen Acosta on 06-30-2023 CO2 [Moles/Vol] 26.7 mmol/L 21.0-31.0 [facility] Chloride [Moles/volume] in S tino or PlasmaOrdered By: Chen Acosta on 06-30-2023 Chloride [Moles/Vol] 106 mmol/L 98-107 [facility] Color Auto (U)Ordered By: Me adryan Acosta on 06-30-2023 Color (U) Yellow Yellow [facility] Complete Blood Count Auto Di ffon 06-30-2023 Basophils (Bld) [#/Vol] 0.1 10*3/uL Normal 0.0-0.2 [facility] Comment on above: Result Comment: PERF ORMED BY: [place] [address] PATHOLOGIST BYPRODUCT ENGINEER ANIL GUAMAN M.D. Performed By: #### C MP, TSH3, LIPID #### [facility] [address] [place] [address] [place] Basophils/100 WBC (Bld) 2.0 % Normal . [facility] Comment on above: Performed By: #### C MP, TSH3, LIPID #### [facility] [address] [place] [address] [place] Eosinophils (Bld) [#/Vol] 0.1 10*3/uL Normal 0.0-0.45 [facility] Comment on above: Performed By: #### C MP, TSH3, LIPID #### [facility] [address] [place] [address] [place] Eosinophils/100 WBC (Bld) 1.7 % Normal . [facility] Comment on above: Performed By: #### C MP, TSH3, LIPID #### [facility] [address] Erythrocyte distribution wid th (RBC) [Ratio] 12.9 % Normal 12.0-14.8 [facility] Comment on above: Performed By: #### C MP, TSH3, LIPID #### [address] Hematocrit (Bld) [Volume fraction] 36.5 % Low 38.8-50.0 [facility] Comment on above: Performed By: #### C MP, TSH3, LIPID #### [address] Hemoglobin (Bld) [Mass/Vol] 12.8 g/dL Low 13.0-17. 0 [facility] Comment on above: Performed By: #### C MP, TSH3, LIPID #### [address] Lymphocytes (Bld) [#/Vol] 1.6 10*3/uL Normal 1.00-4.8 [facility] Comment on above: Performed By: #### C MP, TSH3, LIPID #### [address] Lymphocytes/100 WBC (Bld) 33.5 % Normal . [facility] Comment on above: Performed By: #### C MP, TSH3, LIPID #### [address] MCH (RBC) [Entitic mass] 32.5 pg Normal 27.5-35.2 [facility] Comment on above: Performed By: #### C MP, TSH3, LIPID #### [address] MCV (RBC) [Entitic vol] 92.7 fL Normal 83.5-101 [facility] Comment on above: Performed By: #### C MP, TSH3, LIPID #### [address] Mean Corpuscular HGB Conc 35.0 g/dL Normal 32.5-35.6 [facility] Comment on above: Performed By: #### C MP, TSH3, LIPID #### [facility] [address] [place] [address] [place] Monocytes (Bld) [#/Vol] 0.3 10*3/uL Normal 0.0-0.8 [facility] Comment on above: Performed By: #### C MP, TSH3, LIPID #### [facility] [address] [place] [address] [place] Monocytes/100 WBC (Bld) 17.72 % Normal 0.00-20.00 [facility] Comment on above: Performed By: #### C MP, TSH3, LIPID #### [facility] [address] [place] [address] [place] Monocytes/100 WBC (Bld) 6.8 % Normal . [facility] Comment on above: Performed By: #### C MP, TSH3, LIPID #### [facility] [address] [place] [address] [place] Neutrophils (Bld) [#/Vol] 2.8 10*3/uL Normal 1.8-7.7 [facility] Comment on above: Performed By: #### C MP, TSH3, LIPID #### [facility] [address] [place] [address] [place] Neutrophils/100 WBC (Bld) 56.0 % Normal . [facility] Comment on above: Performed By: #### C MP, TSH3, LIPID #### [facility] [address] [place] [address] [place] NRBC% 0.1 /100{WBC} Normal 0-0.5 [facility] Comment on above: Performed By: #### C MP, TSH3, LIPID #### [facility] [address] [place] [address] [place] Platelet mean volume (Bld) [Entitic vol] 8.7 fL Normal 6.6-10.1 [facility] Comment on above: Performed By: #### C MP, TSH3, LIPID #### [facility] [address] [place] [address] [place] Platelets (Bld) [#/Vol] 196 10*3/uL Normal 150-450 [facility] Comment on above: Performed By: #### C MP, TSH3, LIPID #### [facility] [address] [place] [address] RBC (Bld) [#/Vol] 3.94 10*6/uL Normal 3.90-5.60 [facility] Comment on above: Performed By: #### C MP, TSH3, LIPID #### [address] WBC (Bld) [#/Vol] 4.9 10*3/uL Normal 4.1-10.5 [facility] Comment on above: Performed By: #### C MP, TSH3, LIPID #### [address] Comprehensive Metabolic Pane rudolph 06-30-2023 Albumin [Mass/Vol] 4.2 g/dL Normal 3.5-5.7 [facility] Comment on above: Performed By: #### C MP, TSH3, LIPID #### [address] Albumin/Globulin [Mass ratio] 1.4 {ratio} Normal [facility] Comment on above: Performed By: #### C MP, TSH3, LIPID #### [address] ALP [Catalytic activity/Vol] 59 U/L Normal 34-104 [facility] Comment on above: Performed By: #### C MP, TSH3, LIPID #### [address] ALT [Catalytic activity/Vol] 19 U/L Normal 7-52 [facility] Comment on above: Performed By: #### C MP, TSH3, LIPID #### [address] Anion gap [Moles/Vol] 10.6 mmol/L Normal 6.0-15.0 [facility] Comment on above: Performed By: #### C MP, TSH3, LIPID #### [facility] [address] AST [Catalytic activity/Vol] 14 U/L Normal 13-39 [facility] Comment on above: Performed By: #### C MP, TSH3, LIPID #### [facility] [address] Bilirubin [Mass/Vol] 0.5 mg/dL Normal 0.3-1.0 [facility] Comment on above: Performed By: #### C MP, TSH3, LIPID #### [facility] [address] Calcium [Mass/Vol] 9.2 mg/dL Normal 8.6-10.3 [facility] Comment on above: Performed By: #### C MP, TSH3, LIPID #### [facility] [address] Chloride [Moles/Vol] 106 mmol/L Normal 98-107 [facility] Comment on above: Performed By: #### C MP, TSH3, LIPID #### [facility] [address] CO2 [Moles/Vol] 26.7 mmol/L Normal 21.0-31.0 [facility] Comment on above: Performed By: #### C MP, TSH3, LIPID #### [facility] [address] [place] [address] [place] Creatinine [Mass/Vol] 0.88 mg/dL Normal 0.70-1.30 [facility] Comment on above: Performed By: #### C MP, TSH3, LIPID #### [facility] [address] [place] [address] [place] Creatinine Clr Calc Pharmacy 102.21 [facility] Comment on above: Performed By: #### C MP, TSH3, LIPID #### [facility] [address] [place] [address] [place] GFR/1.73 sq M.predicted MDRD (S/P/Bld) [Vol rate/Area] mL/min/{1.73_m2} [facility] Comment on above: Performed By: #### C MP, TSH3, LIPID #### [facility] [address] Globulin (S) [Mass/Vol] 2.9 g/dL Normal [facility] Comment on above: Performed By: #### C MP, TSH3, LIPID #### [facility] [address] Glucose [Mass/Vol] 180 mg/dL High 70-100 [facility] Comment on above: Result Comment: [facility] Glucose Reference Range is dependent on time and content of last meal. Glucose of more than 200 mg/dL in a nonstressed, ambulatory subject supports the diagnosis of Diabetes Mellitus. ADA recommended reference range Performed By: #### C MP, TSH3, LIPID #### [facility] [address] Potassium [Moles/Vol] 4.3 mmol/L Normal 3.5-5.1 [facility] Comment on above: Performed By: #### C MP TSH3, LIPID #### [place] [address] [place] Protein [Mass/Vol] 7.1 g/dL Normal 6.4-8.9 [facility] Comment on above: Performed By: #### C MP, TSH3, LIPID #### [place] [address] [place] Sodium [Moles/Vol] 139 mmol/L Normal 136-145 [facility] Comment on above: Performed By: #### C MP TSH3, LIPID #### [place] [address] [place] Urea nitrogen [Mass/Vol] 17 mg/dL Normal 7-25 [facility] Comment on above: Performed By: #### C MP, TSH3, LIPID #### [place] [address] [place] Creatinine [Mass/volume] in Serum or PlasmaOrdered By: Chen Acosta on 06-30-2023 Creatinine [Mass/Vol] 0.88 mg/dL 0.70-1.30 [facility] ECG 12 lead ECGon 06-30-2023 ECG 12 lead ECG [facility] [place] [address] [place] [address] Electrocardiograph Report Signed Patient: uJstice Aranda JR MR#: [id number] : 1970 Acct:[id number] Age/Sex: 53 / M ADM Date: 06/30/23 Loc: ER Room: Type: [facility] ER Attending Dr: Ordering Provider: Chen Acosta DO Date of Service: 06/30/2302/17/1205 ECG/ECG 12 lead ECG: Dizziness Copies to: Test Reason : Blood Pressure : 130/076 mmHG Vent. Rate : 067 BPM Atrial Rate : 067 BPM P-R Int : 182 ms QRS Dur : 072 ms QT Int : 398 ms P-R-T Axes : 000 -09 -04 degrees QTc Int : 420 ms Normal sinus rhythm Normal ECG When compared with ECG of 24-JUN-2023 10:02, ST now depressed in Inferior leads T wave inversion now evident in Inferior leads Confirmed by ERROL DELGADO DO ([id number]) on 06/30/2023 3:13:21 PM Referred By: Electronically Signed By:ERROL DELGADO DO Transcribed By: MUS Signed By Errol Delgado DO 06/30 1513 Normal [facility] Eosinophils Auto (Bld) [#/Vo l]Ordered By: Chen Acosta on 06-30-2023 Eosinophils (Bld) [#/Vol] 0.1 10*3/uL 0.0-0.45 [facility] Eosinophils/100 WBC Auto (Bl d)Ordered By: Chen Acosta on 06-30-2023 Eosinophils/100 WBC (Bld) 1.7 % . [facility] Erythrocyte distribution wid th Auto (RBC) [Ratio]Ordered By: Chen Acosta on 06-30-2023 Erythrocyte distribution wid th (RBC) [Ratio] 12.9 % 12.0-14.8 [facility] Globulin Calc (S) [Mass/Vol] Ordered By: Chen Acosta on 06-30-2023 Globulin (S) [Mass/Vol] 2.9 g/dL [facility] Glucose Glucometer (BldC) [M ass/Vol]Ordered By: Chen Acosta on 06-30-2023 Glucose [Mass/Vol] 173 mg/dL [facility] Comment on above: Random Glucose Refer ence Range is dependent on time and content of last meal. Glucose of more than 200 mg/dL in a nonstressed, ambulatory subject supports the diagnosis of Diabetes Mellitus. Glucose Poct Glucometerson 0 06-30-2023 Commemt1 Glu2: Cleaned Meter Normal [facility] Comment on above: Result Comment: PERF ORMED BY: [facility] [address] [place] [address] PATHOLOGIST BYPRODUCT ENGINEER ANIL GUAMAN M.D. Performed By: #### R AUDRA PANEL UPP., BIOFIRECOVNOTDE #### [facility] [address] [place] [address] Glucose [Mass/Vol] 173 mg/dL Normal [facility] Comment on above: Result Comment: [place] Glucose Reference Range is dependent on time and content of last meal. Glucose of more than 200 mg/dL in a nonstressed, ambulatory subject supports the diagnosis of Diabetes Mellitus. Performed By: #### R AUDRA PANEL UPP., BIOFIRECOVNOTDE #### [facility] [address] [place] [address] [place] Glucose [Mass/volume] in Ser um or PlasmaOrdered By: Chen Acosta on 06-30-2023 Glucose [Mass/Vol] 180 mg/dL 70-100 [facility] Comment on above: ADA recommended refe rence rangeRandom Glucose Reference Range is dependent on time and content of last meal. Glucose of more than 200 mg/dL in a nonstressed, ambulatory subject supports the diagnosis of Diabetes Mellitus. Hematocrit Auto (Bld) [Volum e fraction]Ordered By: Chen Acosta on 06-30-2023 Hematocrit (Bld) [Volume fraction] 36.5 % 3 8.8-50.0 [facility] Hemoglobin [Mass/volume] in BloodOrdered By: hCen Acosta on 06-30-2023 Hemoglobin (Bld) [Mass/Vol] 12.8 g/dL 13.0-17. 0 [facility] Ketones Auto test strip (U) [Mass/Vol]Ordered By: Chen Acosta on 06-30-2023 Ketones (U) [Mass/Vol] Negative Negative Fi [facility] - Chemistry and C hemistry - challengeOrdered By: Chen Acosta on 06-30-2023 CO2 [Moles/Vol] 23.3 mmol/L 24.0-29.0 [facility] HCO3 (Bld) [Moles/Vol] 22.0 mmol/L 23.0-29.0 [facility] Leukocytes [#/volume] correc billy for nucleated erythrocytes in Blood by Automated counOrdered By: Chen Acosta on 06-30-2023 WBC corrected for nucl RBC A uto (Bld) [#/Vol] 4.9 10*3/uL 4.1-10.5 [facility] Lymphocytes Auto (Bld) [#/Vo l]Ordered By: Chen Acosta on 06-30-2023 Lymphocytes (Bld) [#/Vol] 1.6 10*3/uL 1.00-4.8 [facility] Lymphocytes/100 WBC Auto (Bl d)Ordered By: Chen Acosta on 06-30-2023 Lymphocytes/100 WBC (Bld) 33.5 % . [facility] MCH Auto (RBC) [Entitic mass ]Ordered By: Chen Acosta on 06-30-2023 MCH (RBC) [Entitic mass] 32.5 pg 27.5-35.2 [facility] MCHC Auto (RBC) [Mass/Vol]Or dered By: Chen Acosta on 06-30-2023 MCHC (RBC) [Mass/Vol] 35.0 g/dL 32.5-35.6 [facility] MCV Auto (RBC) [Entitic vol] Ordered By: Chen Acosta on 06-30-2023 MCV (RBC) [Entitic vol] 92.7 fL 83.5-101 [facility] Monocyte distribution width [Entitic volume] in Blood by AutomatedOrdered By: Chen Acosta on 06-30-2023 Monocyte distribution width Auto (Bld) [Entitic vol] 17.72 % 0.00-20.00 [facility] Monocytes Auto (Bld) [#/Vol] Ordered By: Chen Acosta on 06-30-2023 Monocytes (Bld) [#/Vol] 0.3 10*3/uL 0.0-0.8 [facility] Monocytes/100 WBC Auto (Bld) Ordered By: Chen Acosta on 06-30-2023 Monocytes/100 WBC (Bld) 6.8 % . [facility] Neutrophils Auto (Bld) [#/Vo l]Ordered By: Chen Acosta on 06-30-2023 Neutrophils (Bld) [#/Vol] 2.8 10*3/uL 1.8-7.7 [facility] Neutrophils/100 WBC Auto (Bl d)Ordered By: Chen Acosta on 06-30-2023 Neutrophils/100 WBC (Bld) 56.0 % . [facility] Nitrite Test strip Ql (U)Ord ered By: Chen Acosta on 06-30-2023 Nitrite Ql (U) Negative Negative [facility] No Panel InformationOrdered By: Chen Acosta on 06-30-2023 Bedside Glucose Comment Glu2: cleaned meter [facility] Blood Gas Critical Value See comment [facility] Comment on above: Critical Value topete d on: 06/30/2023 at 10:56 Blood Gas Sample Site Venous Fir [facility] FiO2 21 % [facility] Venous Blood Base Excess -3.1 mmol/L -3.0-3.0 [facility] Venous Blood Oxygen Saturation 77.2 % 73.0- 76.0 [facility] Venous Blood Partial Pressur e CO2 40.0 mm[Hg] 38.0-50.0 [facility] Venous Blood Partial Pressur e O2 39.4 mm[Hg] 35.0-45.0 [facility] Venous Blood pH 7.36 7.32-7.43 [facility] Estimated GFR (CKD-EPI) > 60.0 mL/Min [facility] Creatinine Clearanc e (Chem 102.21 [facility] Nucleated erythrocytes [Pres ence] in Blood by Automated countOrdered By: Chen Acotsa on 06-30-2023 Nucleated RBC Auto Ql (Bld) 0.1 /100{WBC} 0-0.5 [facility] Platelet mean volume Auto (B ld) [Entitic vol]Ordered By: Chen Acosta on 06-30-2023 Platelet mean volume (Bld) [Entitic vol] 8.7 fL 6.6-10.1 [facility] Platelets Auto (Bld) [#/Vol] Ordered By: Chen Acosta on 06-30-2023 Platelets (Bld) [#/Vol] 196 10*3/uL 150-450 [facility] Potassium [Moles/volume] in Serum or PlasmaOrdered By: Chen Acosta on 06-30-2023 Potassium [Moles/Vol] 4.3 mmol/L 3.5-5.1 [facility] Protein Auto test strip (U) [Mass/Vol]Ordered By: Chen Acosta on 06-30-2023 Protein (U) [Mass/Vol] Negative Negative [facility] Protein [Mass/volume] in Ser um or PlasmaOrdered By: Chen Acosta on 06-30-2023 Protein [Mass/Vol] 7.1 g/dL 6.4-8.9 [facility] RBC Auto (Bld) [#/Vol]Ordere d By: Chen Acosta on 06-30-2023 RBC (Bld) [#/Vol] 3.94 10*6/uL 3.90-5.60 [facility] Serum or plasma albumin/glob ulin mass ratioOrdered By: Chen Acosta on 06-30-2023 Albumin/Globulin [Mass ratio] 1.4 {ratio} [facility] Serum or plasma anion gap de terminationOrdered By: Chen Acosta on 06-30-2023 Anion gap [Moles/Vol] 10.6 mmol/L 6.0-15.0 [facility] Sodium [Moles/volume] in Ser um or PlasmaOrdered By: Chen Acosta on 06-30-2023 Sodium [Moles/Vol] 139 mmol/L 136-145 [facility] Specific gravity Auto test s trip (U) [Rel density]Ordered By: Chen Acosta on 06-30-2023 Specific gravity (U) [Rel density] 1.020 1.001-1.030 [facility] Urea nitrogen [Mass/volume] in Serum or PlasmaOrdered By: Chen Acosta on 06-30-2023 Urea nitrogen [Mass/Vol] 17 mg/dL 06-21 [facility] Urinalysison 06-30-2023 Appearance (U) Clear Normal Clear [facility] Comment on above: Order Comment: Reaso n for Exam Weight loss;Nausea vomiting;Type 2 diabetes mellitus with PT IS FASTING Performed By: #### C MP, TSH3, LIPID #### [facility] [address] Bilirubin,Urine Negative Normal Negative [facility] Comment on above: Order Comment: Reaso n for Exam Weight loss;Nausea vomiting;Type 2 diabetes mellitus with PT IS FASTING Performed By: #### C MP, TSH3, LIPID #### [facility] [address] Color (U) Yellow Normal Yellow [facility] Comment on above: Order Comment: Reaso n for Exam Weight loss;Nausea vomiting;Type 2 diabetes mellitus with PT IS FASTING Performed By: #### C MP, TSH3, LIPID #### [facility] [address] [place] [address] [place] Glucose Ql (U) 500 mg/dL High Normal [facility] Comment on above: Order Comment: Reaso n for Exam Weight loss;Nausea vomiting;Type 2 diabetes mellitus with PT IS FASTING Performed By: #### C MP, TSH3, LIPID #### [facility] [address] [place] [address] [place] Ketones Ql (U) Negative Normal Negative [facility] Comment on above: Order Comment: Reaso n for Exam Weight loss;Nausea vomiting;Type 2 diabetes mellitus with PT IS FASTING Performed By: #### C MP, TSH3, LIPID #### [facility] [address] [place] [address] [place] Leukocyte esterase Test stri p Ql (U) Negative Normal Negative [facility] Comment on above: Order Comment: Reaso n for Exam Weight loss;Nausea vomiting;Type 2 diabetes mellitus with PT IS FASTING Performed By: #### C MP, TSH3, LIPID #### [facility] [address] [place] [address] [place] Nitrite,Urine Negative Normal [facility] Comment on above: Order Comment: Reaso n for Exam Weight loss;Nausea vomiting;Type 2 diabetes mellitus with PT IS FASTING Performed By: #### C MP, TSH3, LIPID #### [facility] [address] Occult Blood,Urine Negative Normal Negative [facility] Comment on above: Order Comment: Reaso n for Exam Weight loss;Nausea vomiting;Type 2 diabetes mellitus with PT IS FASTING Result Comment: PERF ORMED BY: [facility] [address] [place] [address] PATHOLOGIST BYPRODUCT ENGINEER ANIL GUAMAN M.D. Performed By: #### C MP, TSH3, LIPID #### [facility] [address] pH (U) 5.5 [pH] Normal 5.0-9.0 [facility] Comment on above: Order Comment: Reaso n for Exam Weight loss;Nausea vomiting;Type 2 diabetes mellitus with PT IS FASTING Performed By: #### C MP, TSH3, LIPID #### [facility] [address] [place] [address] [place] Protein,Urine Negative Normal [facility] Comment on above: Order Comment: Reaso n for Exam Weight loss;Nausea vomiting;Type 2 diabetes mellitus with PT IS FASTING Performed By: #### C MP, TSH3, LIPID #### [facility] [address] [place] [address] [place] Specificy [place],Urine 1.020 Normal 1.001-1.030 [facility] Comment on above: Order Comment: Reaso n for Exam Weight loss;Nausea vomiting;Type 2 diabetes mellitus with PT IS FASTING Performed By: #### C MP, TSH3, LIPID #### [facility] [address] [place] [address] [place] Urobilinogen,Urine Normal Normal Normal [facility] Comment on above: Order Comment: Reaso n for Exam Weight loss;Nausea vomiting;Type 2 diabetes mellitus with PT IS FASTING Performed By: #### C MP, TSH3, LIPID #### [facility] [address] [place] [address] Urine clarity by refractomet ry automatedOrdered By: Chen Acosta on 06-30-2023 Clarity Refractometry automated (U) Clear Clear [facility] Urine glucose measurement by automated test strip (mass/volume)Ordered By: Chen Acosta on 06-30-2023 Glucose Auto test strip (U) [Mass/Vol] 500 mg/dL Normal [facility] Urine hemoglobin detection b y automated test stripOrdered By: Chen Acosta on 06-30-2023 Hemoglobin Auto test strip Ql (U) Negative Ne gative [facility] Urine leukocyte esterase det ection by automated test stripOrdered By: Chen Acosta on 06-30-2023 Leukocyte esterase Auto test strip Ql (U) Negative Negative [facility] Urobilinogen Auto test strip (U) [Mass/Vol]Ordered By: Chen Acosta on 06-30-2023 Urobilinogen (U) [Mass/Vol] Normal mg/dL Normal [facility] Venous Blood Gason 3 CO2 [Moles/Vol] 23.3 mmol/L Low 24.0-29.0 [facility] Comment on above: Performed By: #### C MP, TSH3, LIPID #### [address] HCO3 (Bld) [Moles/Vol] 22.0 mmol/L Low 23.0-29.0 [facility] Comment on above: Performed By: #### C MP, TSH3, LIPID #### [facility] [address] [place] [address] Respiratory Critical Normal [facility] Comment on above: Result Comment: Crit ical Value called on: 06/30/2023 at 10:56 PERFORMED BY: [place] [address] PATHOLOGIST BYPRODUCT ENGINEER ANIL GUAMAN M.D. Performed By: #### C MP, TSH3, LIPID #### [address] VBG Base Excess -3.1 mmol/L Low -3.0-3.0 [facility] Comment on above: Performed By: #### C MP, TSH3, LIPID #### [facility] [address] [place] [address] VBG Draw Site Venous Normal [facility] Comment on above: Performed By: #### C MP, TSH3, LIPID #### [facility] [address] VBG Frac Inspired O2 21 % Normal [facility] Comment on above: Performed By: #### C MP, TSH3, LIPID #### [facility] [address] [place] [address] VBG Oxygen Saturation 77.2 % High 73.0-76.0 [facility] Comment on above: Performed By: #### C MP, TSH3, LIPID #### [facility] [address] [place] [address] VBG PCO2 40.0 mm[Hg] Normal 38.0-50.0 [facility] Comment on above: Performed By: #### C MP, TSH3, LIPID #### [facility] [address] [place] [address] VBG PH Venous PH 7.36 Normal 7.32-7.43 [facility] Comment on above: Performed By: #### C MP, TSH3, LIPID #### [facility] [address] [place] [address] VBG PO2 39.4 mm[Hg] Normal 35.0-45.0 [facility] Comment on above: Performed By: #### C MP, TSH3, LIPID #### [facility] [address] [place] [address] WBC Auto (Bld) [#/Vol]Ordere d By: Chen Acosta on 06-30-2023 WBC (Bld) [#/Vol] 4.9 10*3/uL 4.1-10.5 [facility] pH Auto test strip (U)Ordere d By: Chen Acosta on 06-30-2023 pH (U) 5.5 [pH] 5.0-9.0 [facility] Alanine aminotransferase [En zymatic activity/volume] in Serum or PlasmaOrdered By: David Khan on 06-24-2023 ALT [Catalytic activity/Vol] 19 U/L 7-52 [facility] Albumin [Mass/volume] in Ser um or Plasma by Bromocresol green (BCG) dye binding methoOrdered By: David Khan on 06-24-2023 Albumin BCG dye [Mass/Vol] 4.1 g/dL 3.5-5.7 [facility] Alkaline phosphatase [Enzyma tic activity/volume] in Serum or PlasmaOrdered By: [facility]2023 ALP [Catalytic activity/Vol] 62 U/L 34-104 [facility] Aspartate aminotransferase [ Enzymatic activity/volume] in Serum or PlasmaOrdered By: [facility] Centersain on 06-24-2023 AST [Catalytic activity/Vol] 14 U/L 13-39 [facility] Automated erythrocytes count in urine sediment (number/area)Ordered By: David Khan on 06-24-2023 RBC Auto (Urine sed) [#/Area] 1-2 [HPF] 0-4 [facility] Automated leukocytes count i n urine sediment (number/area)Ordered By: David Khan on 06-24-2023 WBC Auto (Urine sed) [#/Area] 1-2 [HPF] 0-4 [facility] B-Type Natriuretic Peptideon 06-24-2023 Natriuretic peptide B (Bld) [Mass/Vol] 17.0 pg/mL Normal 5-100 [facility] Comment on above: Result Comment: PERF ORMED BY: [place] [address] PATHOLOGIST BYPRODUCT ENGINEER ANIL GUAMAN M.D. Performed By: #### C MP, TSH3, LIPID #### [place] [address] [place] Basophils Auto (Bld) [#/Vol] Ordered By: David Khan on 06-24-2023 Basophils (Bld) [#/Vol] 0.1 10*3/uL 0.0-0.2 [facility] Basophils/100 WBC Auto (Bld) Ordered By: Davidfátima OlsenBill on 06-24-2023 Basophils/100 WBC (Bld) 0.7 % . [facility] Bilirubin Test strip Ql (U)O rdered By: David Khan on 06-24-2023 Bilirubin Ql (U) 1+ Negative [facility] Bilirubin.total [Mass/volume ] in Serum or PlasmaOrdered By: Davidfátima OlsenBill on 06-24-2023 Bilirubin [Mass/Vol] 0.6 mg/dL 0.3-1.0 [facility] Calcium [Mass/volume] in Ser um or PlasmaOrdered By: David Olsensain on 06-24-2023 Calcium [Mass/Vol] 8.8 mg/dL 8.6-10.3 [facility] Carbon dioxide, total [Moles /volume] in Serum or PlasmaOrdered By: David Ruizin on 06-24-2023 CO2 [Moles/Vol] 26.1 mmol/L 21.0-31.0 [facility] Chloride [Moles/volume] in S tino or PlasmaOrdered By: David Khan on 06-24-2023 Chloride [Moles/Vol] 95 mmol/L 98-107 [facility] Color Auto (U)Ordered By: Rona Khan on 06-24-2023 Color (U) Dark yellow Yellow [facility] Complete Blood Count Auto Di ffon 06-24-2023 Basophils (Bld) [#/Vol] 0.1 10*3/uL Normal 0.0-0.2 [facility] Comment on above: Result Comment: PERF ORMED BY: [place] [address] PATHOLOGIST BYPRODUCT ENGINEER ANIL GUAMAN M.D. Performed By: #### C MP, TSH3, LIPID #### [facility] [address] Basophils/100 WBC (Bld) 0.7 % Normal . [facility] Comment on above: Performed By: #### C MP, TSH3, LIPID #### [place] [address] Eosinophils (Bld) [#/Vol] 0.0 10*3/uL Normal 0.0-0.45 [facility] Comment on above: Performed By: #### C MP, TSH3, LIPID #### [address] Eosinophils/100 WBC (Bld) 0.4 % Normal . [facility] Comment on above: Performed By: #### C MP, TSH3, LIPID #### [address] Erythrocyte distribution wid th (RBC) [Ratio] 12.7 % Normal 12.0-14.8 [facility] Comment on above: Performed By: #### C MP, TSH3, LIPID #### [address] Hematocrit (Bld) [Volume fraction] 38.2 % Low 38.8-50.0 [facility] Comment on above: Performed By: #### C MP, TSH3, LIPID #### [address] Hemoglobin (Bld) [Mass/Vol] 13.4 g/dL Normal 13.0-17. 0 [facility] Comment on above: Performed By: #### C MP, TSH3, LIPID #### [address] Lymphocytes (Bld) [#/Vol] 1.2 10*3/uL Normal 1.00-4.8 [facility] Comment on above: Performed By: #### C MP, TSH3, LIPID #### [address] Lymphocytes/100 WBC (Bld) 13.5 % Normal . [facility] Comment on above: Performed By: #### C MP, TSH3, LIPID #### [address] MCH (RBC) [Entitic mass] 33.0 pg Normal 27.5-35.2 [facility] Comment on above: Performed By: #### C MP, TSH3, LIPID #### [facility] [address] MCV (RBC) [Entitic vol] 94.0 fL Normal 83.5-101 [facility] Comment on above: Performed By: #### C MP, TSH3, LIPID #### [facility] [address] Mean Corpuscular HGB Conc 35.1 g/dL Normal 32.5-35.6 [facility] Comment on above: Performed By: #### C MP, TSH3, LIPID #### [facility] [address] [place] [address] [place] Monocytes (Bld) [#/Vol] 0.5 10*3/uL Normal 0.0-0.8 [facility] Comment on above: Performed By: #### C MP, TSH3, LIPID #### [address] Monocytes/100 WBC (Bld) 19.27 % Normal 0.00-20.00 [facility] Comment on above: Performed By: #### C MP, TSH3, LIPID #### [place] [address] [place] Monocytes/100 WBC (Bld) 5.2 % Normal . [facility] Comment on above: Performed By: #### C MP, TSH3, LIPID #### [place] [address] [place] Neutrophils (Bld) [#/Vol] 7.0 10*3/uL Normal 1.8-7.7 [facility] Comment on above: Performed By: #### C MP, TSH3, LIPID #### [place] [address] [place] Neutrophils/100 WBC (Bld) 80.2 % Normal . [facility] Comment on above: Performed By: #### C MP, TSH3, LIPID #### [place] [address] [place] NRBC% 0.1 /100{WBC} Normal 0-0.5 [facility] Comment on above: Performed By: #### C MP, TSH3, LIPID #### [facility] [address] Platelet mean volume (Bld) [Entitic vol] 8.6 fL Normal 6.6-10.1 [facility] Comment on above: Performed By: #### C MP, TSH3, LIPID #### [facility] [address] Platelets (Bld) [#/Vol] 204 10*3/uL Normal 150-450 [facility] Comment on above: Performed By: #### C MP, TSH3, LIPID #### [facility] [address] RBC (Bld) [#/Vol] 4.07 10*6/uL Normal 3.90-5.60 [facility] Comment on above: Performed By: #### C MP, TSH3, LIPID #### [address] WBC (Bld) [#/Vol] 8.7 10*3/uL Normal 4.1-10.5 [facility] Comment on above: Performed By: #### C MP, TSH3, LIPID #### [address] Comprehensive Metabolic Pane rudolph 06-24-2023 Albumin [Mass/Vol] 4.1 g/dL Normal 3.5-5.7 [facility] Comment on above: Performed By: #### C MP, TSH3, LIPID #### [address] Albumin/Globulin [Mass ratio] 1.4 {ratio} Normal [facility] Comment on above: Performed By: #### C MP, TSH3, LIPID #### [address] ALP [Catalytic activity/Vol] 62 U/L Normal 34-104 [facility] Comment on above: Performed By: #### C MP, TSH3, LIPID #### [facility] [address] [place] [id number] [place] ALT [Catalytic activity/Vol] 19 U/L Normal 7-52 [facility] Comment on above: Performed By: #### C MP, TSH3, LIPID #### [facility] [address] Anion gap [Moles/Vol] 14.6 mmol/L Normal 6.0-15.0 [facility] Comment on above: Performed By: #### C MP, TSH3, LIPID #### [facility] [address] AST [Catalytic activity/Vol] 14 U/L Normal 13-39 [facility] Comment on above: Performed By: #### C MP, TSH3, LIPID #### [facility] [address] Bilirubin [Mass/Vol] 0.6 mg/dL Normal 0.3-1.0 [facility] Comment on above: Performed By: #### C MP, TSH3, LIPID #### [facility] [address] Calcium [Mass/Vol] 8.8 mg/dL Normal 8.6-10.3 [facility] Comment on above: Performed By: #### C MP, TSH3, LIPID #### [facility] [address] [place] [address] [place] Chloride [Moles/Vol] 95 mmol/L Low 98-107 [facility] Comment on above: Performed By: #### C MP, TSH3, LIPID #### [facility] [address] [place] [id number] [place] CO2 [Moles/Vol] 26.1 mmol/L Normal 21.0-31.0 [facility] Comment on above: Performed By: #### C MP, TSH3, LIPID #### [facility] [address] [place] [address] [place] Creatinine [Mass/Vol] 1.64 mg/dL High 0.70-1.30 [facility] Comment on above: Performed By: #### C MP, TSH3, LIPID #### [facility] [address] Creatinine Clr Calc Pharmacy 53.79 Normal [facility] Comment on above: Result Comment: PERF ORMED BY: [place] [address] PATHOLOGIST BYPRODUCT ENGINEER ANIL GUAMAN M.D. Performed By: #### C MP, TSH3, LIPID #### [facility] [address] GFR/1.73 sq M.predicted MDRD (S/P/Bld) [Vol rate/Area] 49.706 mL/min/{1.73_m2} Normal [facility] Comment on above: Performed By: #### C MP, TSH3, LIPID #### [address] Globulin (S) [Mass/Vol] 3.0 g/dL Normal [facility] Comment on above: Performed By: #### C MP, TSH3, LIPID #### [address] Glucose [Mass/Vol] 412 mg/dL High 70-100 [facility] Comment on above: Result Comment: [place] Glucose Reference Range is dependent on time and content of last meal. Glucose of more than 200 mg/dL in a nonstressed, ambulatory subject supports the diagnosis of Diabetes Mellitus. ADA recommended reference range Performed By: #### C MP, TSH3, LIPID #### [address] Potassium [Moles/Vol] 4.7 mmol/L Normal 3.5-5.1 [facility] Comment on above: Performed By: #### C MP, TSH3, LIPID #### [facility] [address] Protein [Mass/Vol] 7.1 g/dL Normal 6.4-8.9 [facility] Comment on above: Performed By: #### C MP, TSH3, LIPID #### [facility] [address] Sodium [Moles/Vol] 131 mmol/L Low 136-145 [facility] Comment on above: Performed By: #### C VINH REHMAN3, LIPID #### [facility] [address] Urea nitrogen [Mass/Vol] 26 mg/dL High 7-25 [facility] Comment on above: Performed By: #### C VINH REHMAN3, LIPID #### [facility] [address] Creatinine [Mass/volume] in Serum or PlasmaOrdered By: David Khan on 06-24-2023 Creatinine [Mass/Vol] 1.64 mg/dL 0.70-1.30 [facility] Dipstick and Microscopicon 0 06-24-2023 Appearance (U) Clear Normal Clear [facility] Comment on above: Order Comment: Name Collection Type:: Clean-Voided Midstream Performed By: #### V BG #### Point of Care testing , Bacteria,Urine None Seen Normal None Seen [facility] Comment on above: Order Comment: Name Collection Type:: Clean-Voided Midstream Performed By: #### V BG #### Point of Care testing , Bilirubin,Urine 1+ High Negative [facility] Comment on above: Order Comment: Name Collection Type:: Clean-Voided Midstream Performed By: #### V BG #### Point of Care testing , Color (U) Dark Yellow Critically abnormal Yellow [facility] Comment on above: Order Comment: Name Collection Type:: Clean-Voided Midstream Performed By: #### V BG #### Point of Care testing , Glucose Ql (U) >=1000 High Normal [facility] Comment on above: Order Comment: Name Collection Type:: Clean-Voided Midstream Performed By: #### V BG #### Point of Care testing , Hyaline Casts,Urine 9-19 High 0-8 [facility] Comment on above: Order Comment: Name Collection Type:: Clean-Voided Midstream Result Comment: PERF ORMED BY: [place] [address] PATHOLOGIST BYPRODUCT ENGINEER ANIL GUAMAN M.D. Performed By: #### V BG #### Point of Care testing , Ketones Ql (U) Trace High Negative [facility] Comment on above: Order Comment: Name Collection Type:: Clean-Voided Midstream Performed By: #### V BG #### Point of Care testing , Leukocyte esterase Test stri p Ql (U) Negative Normal Negative [facility] Comment on above: Order Comment: Name Collection Type:: Clean-Voided Midstream Performed By: #### V BG #### Point of Care testing , Nitrite,Urine Negative Normal Negative [facility] Comment on above: Order Comment: Name Collection Type:: Clean-Voided Midstream Performed By: #### V BG #### Point of Care testing , Occult Blood,Urine Negative Normal Negative [facility] Comment on above: Order Comment: Name Collection Type:: Clean-Voided Midstream Result Comment: PERF ORMED BY: [facility] [address] [place] [address] PATHOLOGIST BYPRODUCT ENGINEER ANIL GUAMAN M.D. Performed By: #### V BG #### Point of Care testing , pH (U) 5.5 [pH] Normal 5.0-9.0 [facility] Comment on above: Order Comment: Name Collection Type:: Clean-Voided Midstream Performed By: #### V BG #### Point of Care testing , Protein (U) [Mass/Vol] 30 mg/dL High Negative [facility] Comment on above: Order Comment: Name Collection Type:: Clean-Voided Midstream Performed By: #### V BG #### Point of Care testing , RBC,Urine 1-2 Normal 0-4 [facility] Comment on above: Order Comment: Name Collection Type:: Clean-Voided Midstream Performed By: #### V BG #### Point of Care testing , Specificy [place],Urine 1.029 Normal 1.001-1.030 [facility] Comment on above: Order Comment: Name Collection Type:: Clean-Voided Midstream Performed By: #### V BG #### Point of Care testing , Squamous Epithelial Cell,Urine 0-1 Normal 0-2 [facility] Comment on above: Order Comment: Name Collection Type:: Clean-Voided Midstream Performed By: #### V BG #### Point of Care testing , Urobilinogen,Urine Normal Normal Normal [facility] Comment on above: Order Comment: Name Collection Type:: Clean-Voided Midstream Performed By: #### V BG #### Point of Care testing , WBC,Urine 1-2 Normal 0-4 [facility] Comment on above: Order Comment: Name Collection Type:: Clean-Voided Midstream Performed By: #### V BG #### Point of Care testing , ECG 12 lead ECGon 06-24-2023 ECG 12 lead ECG [place] [address] Electrocardiograph Report Signed 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 MR#: [id number] : 1970 Acct:[id number] Age/Sex: 52 / M ADM Date: 06/24/23 Loc: ER Room: Type: [facility] ER Attending Dr: Ordering Provider: Bucky Cheng DO Date of Service: 06/24/23 ECG/ECG 12 lead ECG: Syncope Copies to: Test Reason : Blood Pressure : / mmHG Vent. Rate : 091 BPM Atrial Rate : 091 BPM P-R Int : 194 ms QRS Dur : 074 ms QT Int : 348 ms P-R-T Axes : 040 006 049 degrees QTc Int : 428 ms Normal sinus rhythm Normal ECG Confirmed by Bucky Cheng DO ([id number]) on 06/24/2023 3:55:14 PM Referred By: Electronically Signed By:Bucky Cheng DO Transcribed By: MUS Signed By Bucky Cheng DO 1555 Normal [facility] Eosinophils Auto (Bld) [#/Vo l]Ordered By: David Khan on 06-24-2023 Eosinophils (Bld) [#/Vol] 0.0 10*3/uL 0.0-0.45 [facility] Eosinophils/100 WBC Auto (Bl d)Ordered By: David Khan on 06-24-2023 Eosinophils/100 WBC (Bld) 0.4 % . [facility] Erythrocyte distribution wid th Auto (RBC) [Ratio]Ordered By: David Khan on 06-24-2023 Erythrocyte distribution wid th (RBC) [Ratio] 12.7 % 12.0-14.8 [facility] Globulin Calc (S) [Mass/Vol] Ordered By: David Khan on 06-24-2023 Globulin (S) [Mass/Vol] 3.0 g/dL [facility] Glucose Glucometer (BldC) [M ass/Vol]Ordered By: Bucky Cheng on 06-24-2023 Glucose [Mass/Vol] 363 mg/dL [facility] Comment on above: Random Glucose Refer ence Range is dependent on time and content of last meal. Glucose of more than 200 mg/dL in a nonstressed, ambulatory subject supports the diagnosis of Diabetes Mellitus. Glucose Poct Glucometerson 0 06-24-2023 Glucose [Mass/Vol] 363 mg/dL Normal [facility] Comment on above: Result Comment: [place] om Glucose Reference Range is dependent on time and content of last meal. Glucose of more than 200 mg/dL in a nonstressed, ambulatory subject supports the diagnosis of Diabetes Mellitus. PERFORMED BY: [place] [address] PATHOLOGIST BYPRODUCT ENGINEER ANIL GUAMAN M.D. Performed By: #### C BC, LIPASE, HEPATIC, BMP #### [facility] [address] [place] [address] Glucose [Mass/volume] in Ser um or PlasmaOrdered By: David Khan on 06-24-2023 Glucose [Mass/Vol] 412 mg/dL 70-100 [facility] Comment on above: ADA recommended refe rence rangeRandom Glucose Reference Range is dependent on time and content of last meal. Glucose of more than 200 mg/dL in a nonstressed, ambulatory subject supports the diagnosis of Diabetes Mellitus. Hematocrit Auto (Bld) [Volum e fraction]Ordered By: David Khan on 06-24-2023 Hematocrit (Bld) [Volume fraction] 38.2 % 3 8.8-50.0 [facility] Hemoglobin [Mass/volume] in BloodOrdered By: David Khan on 06-24-2023 Hemoglobin (Bld) [Mass/Vol] 13.4 g/dL 13.0-17. 0 [facility] Ketones Auto test strip (U) [Mass/Vol]Ordered By: David Khan on 06-24-2023 Ketones (U) [Mass/Vol] Trace Negative Fi [facility] - UrinalysisOrder ed By: David Khan on 06-24-2023 Hyaline casts LM Ql (Urine sed) 9-19 [LPF] 0-8 [facility] Leukocytes [#/volume] correc billy for nucleated erythrocytes in Blood by Automated counOrdered By: David Khan on 06-24-2023 WBC corrected for nucl RBC A uto (Bld) [#/Vol] 8.7 10*3/uL 4.1-10.5 [facility] Lymphocytes Auto (Bld) [#/Vo l]Ordered By: David Khan on 06-24-2023 Lymphocytes (Bld) [#/Vol] 1.2 10*3/uL 1.00-4.8 [facility] Lymphocytes/100 WBC Auto (Bl d)Ordered By: David Khan on 06-24-2023 Lymphocytes/100 WBC (Bld) 13.5 % . [facility] MCH Auto (RBC) [Entitic mass ]Ordered By: David Khan on 06-24-2023 MCH (RBC) [Entitic mass] 33.0 pg 27.5-35.2 [facility] MCHC Auto (RBC) [Mass/Vol]Or dered By: David Khan on 06-24-2023 MCHC (RBC) [Mass/Vol] 35.1 g/dL 32.5-35.6 [facility] MCV Auto (RBC) [Entitic vol] Ordered By: David Khan on 06-24-2023 MCV (RBC) [Entitic vol] 94.0 fL 83.5-101 [facility] Monocyte distribution width [Entitic volume] in Blood by AutomatedOrdered By: David Khan on 06-24-2023 Monocyte distribution width Auto (Bld) [Entitic vol] 19.27 % 0.00-20.00 [facility] Monocytes Auto (Bld) [#/Vol] Ordered By: David Khan on 06-24-2023 Monocytes (Bld) [#/Vol] 0.5 10*3/uL 0.0-0.8 [facility] Monocytes/100 WBC Auto (Bld) Ordered By: David Khan on 06-24-2023 Monocytes/100 WBC (Bld) 5.2 % . [facility] Natriuretic peptide B [Mass/ Vol]Ordered By: Bucky Cheng on 06-24-2023 Natriuretic peptide B (Bld) [Mass/Vol] 17.0 pg/mL 5-100 [facility] Neutrophils Auto (Bld) [#/Vo l]Ordered By: David Khan on 06-24-2023 Neutrophils (Bld) [#/Vol] 7.0 10*3/uL 1.8-7.7 [facility] Neutrophils/100 WBC Auto (Bl d)Ordered By: David Khan on 06-24-2023 Neutrophils/100 WBC (Bld) 80.2 % . [facility] Nitrite Test strip Ql (U)Ord ered By: David Khan on 06-24-2023 Nitrite Ql (U) Negative Negative [facility] No Panel InformationOrdered By: David Khan on 06-24-2023 Estimated GFR (CKD-EPI) 49.706 mL/Min [facility] Creatinine Clearanc e (Chem 53.79 [facility] Nucleated erythrocytes [Pres ence] in Blood by Automated countOrdered By: David Khan on 06-24-2023 Nucleated RBC Auto Ql (Bld) 0.1 /100{WBC} 0-0.5 [facility] Platelet mean volume Auto (B ld) [Entitic vol]Ordered By: David Khan on 06-24-2023 Platelet mean volume (Bld) [Entitic vol] 8.6 fL 6.6-10.1 [facility] Platelets Auto (Bld) [#/Vol] Ordered By: Davidfátima OlsenBill on 06-24-2023 Platelets (Bld) [#/Vol] 204 10*3/uL 150-450 [facility] Potassium [Moles/volume] in Serum or PlasmaOrdered By: David Bill on 06-24-2023 Potassium [Moles/Vol] 4.7 mmol/L 3.5-5.1 [facility] Protein Auto test strip (U) [Mass/Vol]Ordered By: David Bill on 06-24-2023 Protein (U) [Mass/Vol] 30 mg/dL Negative [facility] Protein [Mass/volume] in Ser um or PlasmaOrdered By: David Bill on 06-24-2023 Protein [Mass/Vol] 7.1 g/dL 6.4-8.9 [facility] RBC Auto (Bld) [#/Vol]Ordere d By: Davidfátima OlsenBill on 06-24-2023 RBC (Bld) [#/Vol] 4.07 10*6/uL 3.90-5.60 [facility] Serum or plasma albumin/glob ulin mass ratioOrdered By: Davidfátima OlsenBill on 06-24-2023 Albumin/Globulin [Mass ratio] 1.4 {ratio} [facility] Serum or plasma anion gap de terminationOrdered By: David Bill on 06-24-2023 Anion gap [Moles/Vol] 14.6 mmol/L 6.0-15.0 [facility] Sodium [Moles/volume] in Ser um or PlasmaOrdered By: David Bill on 06-24-2023 Sodium [Moles/Vol] 131 mmol/L 136-145 [facility] Specific gravity Auto test s trip (U) [Rel density]Ordered By: Davidfátima OlsenBill on 06-24-2023 Specific gravity (U) [Rel density] 1.029 1.001-1.030 [facility] Squamous epithelial cells de tection in urine sediment by light microscopyOrdered By: David Bill on 06-24-2023 Epithelial cells.squamous LM Ql (Urine sed) 0-1 [HPF] 0-2 [facility] Troponin I High Sensitivityo n 06-24-2023 Troponin I High Sensitivity 8.4 pg/mL Normal 0.0-20.0 [facility] Comment on above: Result Comment: PERF ORMED BY: [facility] [address] [place] [address] PATHOLOGIST BYPRODUCT ENGINEER ANIL GUAMAN M.D. Performed By: #### C MP, TSH3, LIPID #### [facility] [address] Troponin I.cardiac [Mass/vol ume] in Serum or Plasma by Detection limit <= 0.01 ng/Ordered By: Bucky Cheng on 06-24-2023 Troponin I.cardiac DL <= 0.0 1 ng/mL [Mass/Vol] 8.4 pg/mL 0.0-20.0 [facility] Urea nitrogen [Mass/volume] in Serum or PlasmaOrdered By: David Khan on 06-24-2023 Urea nitrogen [Mass/Vol] 26 mg/dL 7- [facility] Urine bacteria detection by automated methodOrdered By: David Khan on 06-24-2023 Bacteria Auto Ql (U) None seen None Seen [facility] Urine clarity by refractomet ry automatedOrdered By: David Khan on 06-24-2023 Clarity Refractometry automated (U) Clear Clear [facility] Urine glucose measurement by automated test strip (mass/volume)Ordered By: David Khan on 06-24-2023 Glucose Auto test strip (U) [Mass/Vol] >=1000 mg/dL Normal [facility] Urine hemoglobin detection b y automated test stripOrdered By: David Khan on 06-24-2023 Hemoglobin Auto test strip Ql (U) Negative Ne gative [facility] Urine leukocyte esterase det ection by automated test stripOrdered By: David Khan on 06-24-2023 Leukocyte esterase Auto test strip Ql (U) Negative Negative [facility] Urobilinogen Auto test strip (U) [Mass/Vol]Ordered By: David Khan on 06-24-2023 Urobilinogen (U) [Mass/Vol] Normal mg/dL Normal [facility] WBC Auto (Bld) [#/Vol]Ordere d By: David Khan on 06-24-2023 WBC (Bld) [#/Vol] 8.7 10*3/uL 4.1-10.5 [facility] XR chest 1V portableon 06-24 X[address] chest [address]V [address] [facility] [place] [address] [place] [address] XRay Report Signed 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 MR#: [id number] : 1970 Acct:[id number] Age/Sex: 52 / M ADM Date: 06/24/23 Loc: ER Room: Type: [facility] ER Attending Dr: Copies to: Bucky Cheng DO Ordering Provider: Bucky Cheng DO Date of Service: 06/24/23 XR/XR chest 1V portable: Syncope Plain film chest single view HISTORY: Diaphoresis. Syncope. COMPARISON: 05/03/2023 FINDINGS: SUPPORT DEVICES: None POSTSURGICAL CHANGES: None HEART: Within normal limits PULMONARY YOHAN: Within normal limits MEDIASTINUM: Unremarkable LUNGS AND PLEURA: No acute lung process, pleural effusion or pneumothorax identified. BONY STRUCTURES: Intact ADDITIONAL FINDINGS None XR/XR chest 1V portable IMPRESSION: No acute process. Impression dictated by: Crow Parker M.D.06/24/2023 10:45 AM Dictation Location: [place] [address] Transcribed By: [facility] 06/24/23 1045 Dictated By: Crow Parker DO 06/24/23 1044 Signed By: 06/24/23 1045 Normal [facility] pH Auto test strip (U)Ordere d By: David Khan on 06-24-2023 pH (U) 5.5 [pH] 5.0-9.0 [facility] Basic Metabolic Panelon 06- Anion gap [Moles/Vol] 11.2 mmol/L Normal 6.0-15.0 [facility] Comment on above: Performed By: #### V BG #### Point of Care testing , Calcium [Mass/Vol] 8.5 mg/dL Low 8.6-10.3 [facility] Comment on above: Performed By: #### V BG #### Point of Care testing , Chloride [Moles/Vol] 100 mmol/L Normal 98-107 [facility] Comment on above: Performed By: #### V BG #### Point of Care testing , CO2 [Moles/Vol] 28.5 mmol/L Normal 21.0-31.0 [facility] Comment on above: Performed By: #### V BG #### Point of Care testing , Creatinine [Mass/Vol] 0.90 mg/dL Normal 0.70-1.30 [facility] Comment on above: Performed By: #### V BG #### Point of Care testing , Creatinine Clr Calc Pharmacy 87.99 [facility] Comment on above: Performed By: #### V BG #### Point of Care testing , GFR/1.73 sq M.predicted MDRD (S/P/Bld) [Vol rate/Area] mL/min/{1.73_m2} Normal [facility] Comment on above: Performed By: #### V BG #### Point of Care testing , Glucose [Mass/Vol] 224 mg/dL High 70-100 [facility] Comment on above: Result Comment: [place] Glucose Reference Range is dependent on time and content of last meal. Glucose of more than 200 mg/dL in a nonstressed, ambulatory subject supports the diagnosis of Diabetes Mellitus. ADA recommended reference range Performed By: #### V BG #### Point of Care testing , Potassium [Moles/Vol] 3.7 mmol/L Normal 3.5-5.1 [facility] Comment on above: Performed By: #### V BG #### Point of Care testing , Sodium [Moles/Vol] 136 mmol/L Normal 136-145 [facility] Comment on above: Performed By: #### V BG #### Point of Care testing , Urea nitrogen [Mass/Vol] 16 mg/dL Normal 7-25 [facility] Comment on above: Performed By: #### V BG #### Point of Care testing , Basophils Auto (Bld) [#/Vol] Ordered By: Eldon Ambriz on 05-05-2023 Basophils (Bld) [#/Vol] 0.0 10*3/uL 0.0-0.2 [facility] Basophils/100 WBC Auto (Bld) Ordered By: Eldon Ambriz on 05-05-2023 Basophils/100 WBC (Bld) 0.9 % . [facility] Calcium [Mass/volume] in Ser um or PlasmaOrdered By: Eldon Ambriz on 05-05-2023 Calcium [Mass/Vol] 8.5 mg/dL 8.6-10.3 [facility] Carbon dioxide, total [Moles /volume] in Serum or PlasmaOrdered By: Eldon Ambriz on 05-05-2023 CO2 [Moles/Vol] 28.5 mmol/L 21.0-31.0 [facility] Chloride [Moles/volume] in S tino or PlasmaOrdered By: Eldon Ambriz on 05-05-2023 Chloride [Moles/Vol] 100 mmol/L 98-107 [facility] Complete Blood Count Auto Di ffon 05-05-2023 Basophils (Bld) [#/Vol] 0.0 10*3/uL Normal 0.0-0.2 [facility] Comment on above: Result Comment: PERF ORMED BY: [facility] [address] [place] [address] PATHOLOGIST BYPRODUCT ENGINEER ANIL GUAMAN M.D. Performed By: #### V BG #### Point of Care testing , Basophils/100 WBC (Bld) 0.9 % Normal . [facility] Comment on above: Performed By: #### V BG #### Point of Care testing , Eosinophils (Bld) [#/Vol] 0.1 10*3/uL Normal 0.0-0.45 [facility] Comment on above: Performed By: #### V BG #### Point of Care testing , Eosinophils/100 WBC (Bld) 2.0 % Normal . [facility] Comment on above: Performed By: #### V BG #### Point of Care testing , Erythrocyte distribution wid th (RBC) [Ratio] 12.6 % Normal 12.0-14.8 [facility] Comment on above: Performed By: #### V BG #### Point of Care testing , Hematocrit (Bld) [Volume fraction] 35.5 % Low 38.8-50.0 [facility] Comment on above: Performed By: #### V BG #### Point of Care testing , Hemoglobin (Bld) [Mass/Vol] 12.6 g/dL Low 13.0-17. 0 [facility] Comment on above: Performed By: #### V BG #### Point of Care testing , Lymphocytes (Bld) [#/Vol] 1.9 10*3/uL Normal 1.00-4.8 [facility] Comment on above: Performed By: #### V BG #### Point of Care testing , Lymphocytes/100 WBC (Bld) 37.1 % Normal . [facility] Comment on above: Performed By: #### V BG #### Point of Care testing , MCH (RBC) [Entitic mass] 32.6 pg Normal 27.5-35.2 [facility] Comment on above: Performed By: #### V BG #### Point of Care testing , MCV (RBC) [Entitic vol] 91.5 fL Normal 83.5-101 [facility] Comment on above: Performed By: #### V BG #### Point of Care testing , Mean Corpuscular HGB Conc 35.6 g/dL Normal 32.5-35.6 [facility] Comment on above: Performed By: #### V BG #### Point of Care testing , Monocytes (Bld) [#/Vol] 0.4 10*3/uL Normal 0.0-0.8 [facility] Comment on above: Performed By: #### V BG #### Point of Care testing , Monocytes/100 WBC (Bld) 7.9 % Normal . [facility] Comment on above: Performed By: #### V BG #### Point of Care testing , Neutrophils (Bld) [#/Vol] 2.6 10*3/uL Normal 1.8-7.7 [facility] Comment on above: Performed By: #### V BG #### Point of Care testing , Neutrophils/100 WBC (Bld) 52.1 % Normal . [facility] Comment on above: Performed By: #### V BG #### Point of Care testing , NRBC% 0.2 /100{WBC} Normal 0-0.5 [facility] Comment on above: Performed By: #### V BG #### Point of Care testing , Platelet mean volume (Bld) [Entitic vol] 9.2 fL Normal 6.6-10.1 [facility] Comment on above: Performed By: #### V BG #### Point of Care testing , Platelets (Bld) [#/Vol] 137 10*3/uL Low 150-450 [facility] Comment on above: Performed By: #### V BG #### Point of Care testing , RBC (Bld) [#/Vol] 3.88 10*6/uL Low 3.90-5.60 [facility] Comment on above: Performed By: #### V BG #### Point of Care testing , WBC (Bld) [#/Vol] 5.0 10*3/uL Normal 4.1-10.5 [facility] Comment on above: Performed By: #### V BG #### Point of Care testing , Creatinine [Mass/volume] in Serum or PlasmaOrdered By: Eldon Ambriz on 05-05-2023 Creatinine [Mass/Vol] 0.90 mg/dL 0.70-1.30 [facility] Eosinophils Auto (Bld) [#/Vo l]Ordered By: Eldon Ambriz on 05-05-2023 Eosinophils (Bld) [#/Vol] 0.1 10*3/uL 0.0-0.45 [facility] Eosinophils/100 WBC Auto (Bl d)Ordered By: Eldon Ambriz on 05-05-2023 Eosinophils/100 WBC (Bld) 2.0 % . [facility] Erythrocyte distribution wid th Auto (RBC) [Ratio]Ordered By: Eldon Ambriz on 05-05-2023 Erythrocyte distribution wid th (RBC) [Ratio] 12.6 % 12.0-14.8 [facility] Glucose [Mass/volume] in Ser um or PlasmaOrdered By: Eldon Ambriz on 05-05-2023 Glucose [Mass/Vol] 224 mg/dL 70-100 [facility] Comment on above: ADA recommended refe rence rangeRandom Glucose Reference Range is dependent on time and content of last meal. Glucose of more than 200 mg/dL in a nonstressed, ambulatory subject supports the diagnosis of Diabetes Mellitus. Hematocrit Auto (Bld) [Volum e fraction]Ordered By: Eldon Ambriz on 05-05-2023 Hematocrit (Bld) [Volume fraction] 35.5 % 3 8.8-50.0 [facility] Hemoglobin [Mass/volume] in BloodOrdered By: Eldon Ambriz on 05-05-2023 Hemoglobin (Bld) [Mass/Vol] 12.6 g/dL 13.0-17. 0 [facility] Leukocytes [#/volume] correc billy for nucleated erythrocytes in Blood by Automated counOrdered By: Eldon Ambriz on 05-05-2023 WBC corrected for nucl RBC A uto (Bld) [#/Vol] 5.0 10*3/uL 4.1-10.5 [facility] Lymphocytes Auto (Bld) [#/Vo l]Ordered By: Eldon Ambriz on 05-05-2023 Lymphocytes (Bld) [#/Vol] 1.9 10*3/uL 1.00-4.8 [facility] Lymphocytes/100 WBC Auto (Bl d)Ordered By: Eldon Ambriz on 05-05-2023 Lymphocytes/100 WBC (Bld) 37.1 % . [facility] MCH Auto (RBC) [Entitic mass ]Ordered By: Eldon Ambriz on 05-05-2023 MCH (RBC) [Entitic mass] 32.6 pg 27.5-35.2 [facility] MCHC Auto (RBC) [Mass/Vol]Or dered By: Eldon Ambriz on 05-05-2023 MCHC (RBC) [Mass/Vol] 35.6 g/dL 32.5-35.6 [facility] MCV Auto (RBC) [Entitic vol] Ordered By: Eldon Ambriz on 05-05-2023 MCV (RBC) [Entitic vol] 91.5 fL 83.5-101 [facility] Magnesiumon 05-05-2023 Magnesium [Mass/Vol] 1.3 mg/dL Low 1.9-2.7 [facility] Comment on above: Result Comment: PERF ORMED BY: [facility] [address] [place] [address] PATHOLOGIST BYPRODUCT ENGINEER ANIL GUAMAN M.D. Performed By: #### V BG #### Point of Care testing , Magnesium [Mass/volume] in S tino or PlasmaOrdered By: Eldon Ambriz on 05-05-2023 Magnesium [Mass/Vol] 1.3 mg/dL 1.9-2.7 [facility] Monocytes Auto (Bld) [#/Vol] Ordered By: Eldon Ambriz on 05-05-2023 Monocytes (Bld) [#/Vol] 0.4 10*3/uL 0.0-0.8 [facility] Monocytes/100 WBC Auto (Bld) Ordered By: Eldon Ambriz on 05-05-2023 Monocytes/100 WBC (Bld) 7.9 % . [facility] Neutrophils Auto (Bld) [#/Vo l]Ordered By: Eldon Ambriz on 05-05-2023 Neutrophils (Bld) [#/Vol] 2.6 10*3/uL 1.8-7.7 [facility] Neutrophils/100 WBC Auto (Bl d)Ordered By: Eldon Ambriz on 05-05-2023 Neutrophils/100 WBC (Bld) 52.1 % . [facility] No Panel InformationOrdered By: Eldon Ambriz on 05-05-2023 Estimated GFR (CKD-EPI) > 60.0 mL/Min [facility] Creatinine Clearanc e (Chem 87.99 [facility] Nucleated erythrocytes [Pres ence] in Blood by Automated countOrdered By: Eldon Ambriz on 05-05-2023 Nucleated RBC Auto Ql (Bld) 0.2 /100{WBC} 0-0.5 [facility] Platelet mean volume Auto (B ld) [Entitic vol]Ordered By: Eldon Ambriz on 05-05-2023 Platelet mean volume (Bld) [Entitic vol] 9.2 fL 6.6-10.1 [facility] Platelets Auto (Bld) [#/Vol] Ordered By: Eldon Ambriz on 05-05-2023 Platelets (Bld) [#/Vol] 137 10*3/uL 150-450 [facility] Potassium [Moles/volume] in Serum or PlasmaOrdered By: Eldon Ambriz on 05-05-2023 Potassium [Moles/Vol] 3.7 mmol/L 3.5-5.1 [facility] RBC Auto (Bld) [#/Vol]Ordere d By: Eldon Ambriz on 05-05-2023 RBC (Bld) [#/Vol] 3.88 10*6/uL 3.90-5.60 [facility] Serum or plasma anion gap de terminationOrdered By: Eldon Ambriz on 05-05-2023 Anion gap [Moles/Vol] 11.2 mmol/L 6.0-15.0 [facility] Sodium [Moles/volume] in Ser um or PlasmaOrdered By: Eldon Ambriz on 05-05-2023 Sodium [Moles/Vol] 136 mmol/L 136-145 [facility] Urea nitrogen [Mass/volume] in Serum or PlasmaOrdered By: Eldon Ambriz on 05-05-2023 Urea nitrogen [Mass/Vol] 16 mg/dL 7-25 [facility] WBC Auto (Bld) [#/Vol]Ordere d By: Eldon Ambriz on 05-05-2023 WBC (Bld) [#/Vol] 5.0 10*3/uL 4.1-10.5 [facility] Alanine aminotransferase [En zymatic activity/volume] in Serum or PlasmaOrdered By: Eldon Ambriz on 05-04-2023 ALT [Catalytic activity/Vol] 9 U/L 7-52 [facility] Albumin [Mass/volume] in Ser um or Plasma by Bromocresol green (BCG) dye binding methoOrdered By: Eldon Ambriz on 05-04-2023 Albumin BCG dye [Mass/Vol] 3.8 g/dL 3.5-5.7 [facility] Alkaline phosphatase [Enzyma tic activity/volume] in Serum or PlasmaOrdered By: Eldon Ambriz on 05-04-2023 ALP [Catalytic activity/Vol] 59 U/L 34-104 [facility] Aspartate aminotransferase [ Enzymatic activity/volume] in Serum or PlasmaOrdered By: Eldon Ambriz on 05-04-2023 AST [Catalytic activity/Vol] 10 U/L 13-39 [facility] Bilirubin.total [Mass/volume ] in Serum or PlasmaOrdered By: Eldon Ambriz on 05-04-2023 Bilirubin [Mass/Vol] 1.1 mg/dL 0.3-1.0 [facility] Cholesterol [Mass/volume] in Serum or PlasmaOrdered By: Eldon Ambriz on 05-04-2023 Cholesterol [Mass/Vol] 150 mg/dL 140-200 [facility] Comment on above: Chol less than 200 m g/dl low riskChol 201-239 mg/dl borderline riskChol 240 mg/dl and greater high risk Cholesterol in LDL Calc [Mas s/Vol]Ordered By: Eldon Ambriz on 05-04-2023 Cholesterol in LDL [Mass/Vol] 72 mg/dL 0-100 [facility] Comment on above: LDL ATP III CLASSIFI CATIONLDL less than 100 mg/dL OptimalLDL 100-129 mg/dL Near or above optimalLDL 130-159 mg/dL Borderline highLDL 160-189 mg/dL HighLDL greater than 189 mg/dL Very high Cholesterol in VLDL Calc [Ma ss/Vol]Ordered By: Eldon Ambriz on 05-04-2023 Cholesterol in VLDL [Mass/Vol] 42 mg/dL [facility] Complete Blood Count Auto Di ffon 05-04-2023 Basophils (Bld) [#/Vol] 0.0 10*3/uL Normal 0.0-0.2 [facility] Comment on above: Result Comment: PERF ORMED BY: [place] [id number] PATHOLOGIST BYPRODUCT ENGINEER ANIL GUAMAN M.D. Performed By: #### C MP, TSH3, LIPID #### [facility] [address] [place] [address] Basophils/100 WBC (Bld) 0.7 % Normal . [facility] Comment on above: Performed By: #### C MP, TSH3, LIPID #### [facility] [address] [place] [address] [place] Eosinophils (Bld) [#/Vol] 0.1 10*3/uL Normal 0.0-0.45 [facility] Comment on above: Performed By: #### C MP, TSH3, LIPID #### [facility] [address] [place] [address] [place] Eosinophils/100 WBC (Bld) 1.1 % Normal . [facility] Comment on above: Performed By: #### C MP, TSH3, LIPID #### [facility] [address] [place] [address] [place] Erythrocyte distribution wid th (RBC) [Ratio] 12.4 % Normal 12.0-14.8 [facility] Comment on above: Performed By: #### C MP, TSH3, LIPID #### [facility] [address] [place] [address] Hematocrit (Bld) [Volume fraction] 36.2 % Low 38.8-50.0 [facility] Comment on above: Performed By: #### C MP, TSH3, LIPID #### [facility] [address] [place] [address] [place] Hemoglobin (Bld) [Mass/Vol] 12.8 g/dL Low 13.0-17. 0 [facility] Comment on above: Performed By: #### C MP, TSH3, LIPID #### [address] Lymphocytes (Bld) [#/Vol] 1.8 10*3/uL Normal 1.00-4.8 [facility] Comment on above: Performed By: #### C MP, TSH3, LIPID #### [address] Lymphocytes/100 WBC (Bld) 34.9 % Normal . [facility] Comment on above: Performed By: #### C MP, TSH3, LIPID #### [address] MCH (RBC) [Entitic mass] 32.5 pg Normal 27.5-35.2 [facility] Comment on above: Performed By: #### C MP, TSH3, LIPID #### [address] MCV (RBC) [Entitic vol] 92.1 fL Normal 83.5-101 [facility] Comment on above: Performed By: #### C MP, TSH3, LIPID #### [address] Mean Corpuscular HGB Conc 35.3 g/dL Normal 32.5-35.6 [facility] Comment on above: Performed By: #### C MP, TSH3, LIPID #### [address] Monocytes (Bld) [#/Vol] 0.4 10*3/uL Normal 0.0-0.8 [facility] Comment on above: Performed By: #### C MP, TSH3, LIPID #### [address] Monocytes/100 WBC (Bld) 7.6 % Normal . [facility] Comment on above: Performed By: #### C MP, TSH3, LIPID #### [address] [place] [address] [place] Neutrophils (Bld) [#/Vol] 2.9 10*3/uL Normal 1.8-7.7 [facility] Comment on above: Performed By: #### C MP, TSH3, LIPID #### [facility] [address] Neutrophils/100 WBC (Bld) 55.7 % Normal . [facility] Comment on above: Performed By: #### C MP, TSH3, LIPID #### [facility] [address] NRBC% 0.3 /100{WBC} Normal 0-0.5 [facility] Comment on above: Performed By: #### C MP, TSH3, LIPID #### [facility] [address] Platelet mean volume (Bld) [Entitic vol] 9.2 fL Normal 6.6-10.1 [facility] Comment on above: Performed By: #### C MP, TSH3, LIPID #### [facility] [address] [place] [address] [place] Platelets (Bld) [#/Vol] 145 10*3/uL Low 150-450 [facility] Comment on above: Performed By: #### C MP, TSH3, LIPID #### [address] RBC (Bld) [#/Vol] 3.92 10*6/uL Normal 3.90-5.60 [facility] Comment on above: Performed By: #### C MP, TSH3, LIPID #### [facility] [address] [place] [address] [place] WBC (Bld) [#/Vol] 5.1 10*3/uL Normal 4.1-10.5 [facility] Comment on above: Performed By: #### C MP, TSH3, LIPID #### [facility] [address] Comprehensive Metabolic Pane rudolph 05-04-2023 Albumin [Mass/Vol] 3.8 g/dL Normal 3.5-5.7 [facility] Comment on above: Order Comment: Reaso n for Exam Weight loss;Nausea vomiting;Type 2 diabetes mellitus with PT IS FASTING Performed By: #### C MP, TSH3, LIPID #### [facility] [address] Albumin/Globulin [Mass ratio] 1.7 {ratio} Normal [facility] Comment on above: Order Comment: Reaso n for Exam Weight loss;Nausea vomiting;Type 2 diabetes mellitus with PT IS FASTING Performed By: #### C MP, TSH3, LIPID #### [facility] [address] ALP [Catalytic activity/Vol] 59 U/L Normal 34-104 [facility] Comment on above: Order Comment: Reaso n for Exam Weight loss;Nausea vomiting;Type 2 diabetes mellitus with PT IS FASTING Performed By: #### C MP, TSH3, LIPID #### [facility] [address] ALT [Catalytic activity/Vol] 9 U/L Normal 7-52 [facility] Comment on above: Order Comment: Reaso n for Exam Weight loss;Nausea vomiting;Type 2 diabetes mellitus with PT IS FASTING Performed By: #### C MP, TSH3, LIPID #### [facility] [address] Anion gap [Moles/Vol] 11.4 mmol/L Normal 6.0-15.0 [facility] Comment on above: Order Comment: Reaso n for Exam Weight loss;Nausea vomiting;Type 2 diabetes mellitus with PT IS FASTING Performed By: #### C MP, TSH3, LIPID #### [facility] [address] [place] [address] [place] AST [Catalytic activity/Vol] 10 U/L Low 13-39 [facility] Comment on above: Order Comment: Reaso n for Exam Weight loss;Nausea vomiting;Type 2 diabetes mellitus with PT IS FASTING Performed By: #### C MP, TSH3, LIPID #### [facility] [address] [place] [address] [place] Bilirubin [Mass/Vol] 1.1 mg/dL High 0.3-1.0 [facility] Comment on above: Order Comment: Reaso n for Exam Weight loss;Nausea vomiting;Type 2 diabetes mellitus with PT IS FASTING Performed By: #### C MP, TSH3, LIPID #### [facility] [address] Calcium [Mass/Vol] 8.7 mg/dL Normal 8.6-10.3 [facility] Comment on above: Order Comment: Reaso n for Exam Weight loss;Nausea vomiting;Type 2 diabetes mellitus with PT IS FASTING Performed By: #### C MP, TSH3, LIPID #### [facility] [address] Chloride [Moles/Vol] 100 mmol/L Normal 98-107 [facility] Comment on above: Order Comment: Reaso n for Exam Weight loss;Nausea vomiting;Type 2 diabetes mellitus with PT IS FASTING Performed By: #### C MP, TSH3, LIPID #### [facility] [address] CO2 [Moles/Vol] 28.8 mmol/L Normal 21.0-31.0 [facility] Comment on above: Order Comment: Reaso n for Exam Weight loss;Nausea vomiting;Type 2 diabetes mellitus with PT IS FASTING Performed By: #### C MP, TSH3, LIPID #### [facility] [address] Creatinine [Mass/Vol] 1.18 mg/dL Significan t change down 0.70-1.30 [facility] Comment on above: Order Comment: Reaso n for Exam Weight loss;Nausea vomiting;Type 2 diabetes mellitus with PT IS FASTING Performed By: #### C MP, TSH3, LIPID #### [facility] [address] [place] [address] [place] Creatinine Clr Calc Pharmacy 67.11 Normal [facility] Comment on above: Order Comment: Reaso n for Exam Weight loss;Nausea vomiting;Type 2 diabetes mellitus with PT IS FASTING Performed By: #### C MP, TSH3, LIPID #### [facility] [address] [place] [address] [place] GFR/1.73 sq M.predicted MDRD (S/P/Bld) [Vol rate/Area] mL/min/{1.73_m2} Normal [facility] Comment on above: Order Comment: Reaso n for Exam Weight loss;Nausea vomiting;Type 2 diabetes mellitus with PT IS FASTING Performed By: #### C MP, TSH3, LIPID #### [facility] [address] Globulin (S) [Mass/Vol] 2.2 g/dL Normal [facility] Comment on above: Order Comment: Reaso n for Exam Weight loss;Nausea vomiting;Type 2 diabetes mellitus with PT IS FASTING Performed By: #### C MP, TSH3, LIPID #### [facility] [address] Glucose [Mass/Vol] 226 mg/dL Significant change up 70-100 [facility] Comment on above: Order Comment: Reaso n for Exam Weight loss;Nausea vomiting;Type 2 diabetes mellitus with PT IS FASTING Result Comment: [facility] Glucose Reference Range is dependent on time and content of last meal. Glucose of more than 200 mg/dL in a nonstressed, ambulatory subject supports the diagnosis of Diabetes Mellitus. ADA recommended reference range Performed By: #### C MP, TSH3, LIPID #### [facility] [address] Potassium [Moles/Vol] 3.2 mmol/L Low 3.5-5.1 [facility] Comment on above: Order Comment: Reaso n for Exam Weight loss;Nausea vomiting;Type 2 diabetes mellitus with PT IS FASTING Performed By: #### C MP, TSH3, LIPID #### [facility] [address] Protein [Mass/Vol] 6.0 g/dL Low 6.4-8.9 [facility] Comment on above: Order Comment: Reaso n for Exam Weight loss;Nausea vomiting;Type 2 diabetes mellitus with PT IS FASTING Performed By: #### C MP, TSH3, LIPID #### [facility] [address] [place] [address] [place] Sodium [Moles/Vol] 137 mmol/L Normal 136-145 [facility] Comment on above: Order Comment: Reaso n for Exam Weight loss;Nausea vomiting;Type 2 diabetes mellitus with PT IS FASTING Performed By: #### C MP, TSH3, LIPID #### [facility] [address] [place] [id number] [place] Urea nitrogen [Mass/Vol] 28 mg/dL High 7-25 [facility] Comment on above: Order Comment: Reaso n for Exam Weight loss;Nausea vomiting;Type 2 diabetes mellitus with PT IS FASTING Performed By: #### C MP, TSH3, LIPID #### [facility] [address] [place] [id number] [facility] ECG 12 lead ECGon 05-04-2023 ECG 12 lead ECG [facility] [place] [address] [place] [address] Electrocardiograph Report Signed 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 Rate : 074 BPM Atrial Rate : 074 BPM P-R Int : 182 ms QRS Dur : 086 ms QT Int : 410 ms P-R-T Axes : 048 -02 040 degrees QTc Int : 455 ms Normal sinus rhythm Normal ECG No previous ECGs available Confirmed by CROW DEAN DO ([id number]) on 05/05/2023 7:48:17 AM Referred By: RN Electronically Signed By:CROW DEAN DO Transcribed By: MUS Signed By Crow Dean DO 05/[address] [facility] Globulin Calc (S) [Mass/Vol] Ordered By: Eldon Ambriz on 05-04-2023 Globulin (S) [Mass/Vol] 2.2 g/dL [facility] Glucose Glucometer (BldC) [M ass/Vol]Ordered By: Eldon Ambriz on 05-04-2023 Glucose [Mass/Vol] 260 mg/dL [facility] Comment on above: Random Glucose Refer ence Range is dependent on time and content of last meal. Glucose of more than 200 mg/dL in a nonstressed, ambulatory subject supports the diagnosis of Diabetes Mellitus. Glucose Poct Glucometerson 0 05-04-2023 Commemt1 Glu2: Cleaned Meter Normal [facility] Comment on above: Result Comment: PERF ORMED BY: [place] [id number] PATHOLOGIST BYPRODUCT ENGINEER ANIL GUAMAN M.D. Performed By: #### C ORI TSH3, LIPID #### [facility] [address] [place] [address] Glucose [Mass/Vol] 260 mg/dL Normal [facility] Comment on above: Result Comment: [place] [facility] Glucose Reference Range is dependent on time and content of last meal. Glucose of more than 200 mg/dL in a nonstressed, ambulatory subject supports the diagnosis of Diabetes Mellitus. Performed By: #### C ORI TSH3, LIPID #### [facility] [address] [place] [address] Glucose [Mass/Vol] 291 mg/dL Normal [facility] Comment on above: Result Comment: [place] [facility] Glucose Reference Range is dependent on time and content of last meal. Glucose of more than 200 mg/dL in a nonstressed, ambulatory subject supports the diagnosis of Diabetes Mellitus. PERFORMED BY: [facility] [address] [place] [address] PATHOLOGIST BYPRODUCT ENGINEER ANIL GUAMAN M.D. Performed By: #### C ORI TSH3, LIPID #### [facility] [address] [place], [place] [id number] [facility] Lipid Panelon 05-04-2023 Cholesterol [Mass/Vol] 150 mg/dL Normal 140-200 [facility] Comment on above: Order Comment: Reaso n for Exam Weight loss;Nausea vomiting;Type 2 diabetes mellitus with PT IS FASTING Result Comment: Chol less than 200 mg/dl low risk Chol 201-239 mg/dl borderline risk Chol 240 mg/dl and greater high risk Performed By: #### C MP, TSH3, LIPID #### [facility] [address] Cholesterol in HDL [Mass/Vol] 36 mg/dL Normal 23-92 [facility] Comment on above: Order Comment: Reaso n for Exam Weight loss;Nausea vomiting;Type 2 diabetes mellitus with PT IS FASTING Result Comment: HDL CHOL ATP-III CLASSIFICATION Cardiovascular Risk HDL > or equal to 60 mg/dL LOW HDL < 40 mg/dL HIGH Performed By: #### C MP, TSH3, LIPID #### [facility] [address] Cholesterol.total/Cholestero l in HDL [Mass ratio] 4.2 {ratio} Normal <5.0 [facility] Comment on above: Order Comment: Reaso n for Exam Weight loss;Nausea vomiting;Type 2 diabetes mellitus with PT IS FASTING Result Comment: PERF ORMED BY: [place] [address] PATHOLOGIST BYPRODUCT ENGINEER ANIL GUAMAN M.D. Performed By: #### C MP, TSH3, LIPID #### [facility] [address] LDL Cholesterol,Calculated 72 mg/dL Normal 0-100 [facility] Comment on above: Order Comment: Reaso n for Exam Weight loss;Nausea vomiting;Type 2 diabetes mellitus with PT IS FASTING Result Comment: LDL ATP III CLASSIFICATION LDL less than 100 mg/dL Optimal LDL 100-129 mg/dL Near or above optimal LDL 130-159 mg/dL Borderline high LDL 160-189 mg/dL High LDL greater than 189 mg/dL Very high Performed By: #### C MP, TSH3, LIPID #### [facility] [address] [place] [address] [place] Triglyceride w/Reflex 211 mg/dL High 0-149 [facility] Comment on above: Order Comment: Reaso n for Exam Weight loss;Nausea vomiting;Type 2 diabetes mellitus with PT IS FASTING Result Comment: TRIG ATP III CLASSIFICATION TRIG less than 150 mg/dL Normal TRIG 150-199 mg/dL Borderline high TRIG 200-500 mg/dL High TRIG greater than 500 mg/dL Very high Standard traceable to the Center for Disease Conrtrol and Prevention (CDC) test method. Performed By: #### C MP, TSH3, LIPID #### [facility] [address] [place] [address] [place] VLDL CHOLESTEROL 42 mg/dL Normal [facility] Comment on above: Order Comment: Reaso n for Exam Weight loss;Nausea vomiting;Type 2 diabetes mellitus with PT IS FASTING Performed By: #### C MP, TSH3, LIPID #### [facility] [address] No Panel InformationOrdered By: Eldon Ambriz on 05-04-2023 Bedside Glucose Comment Glu2: cleaned meter [facility] Protein [Mass/volume] in Ser um or PlasmaOrdered By: Eldon Ambriz on 05-04-2023 Protein [Mass/Vol] 6.0 g/dL 6.4-8.9 [facility] Serum or plasma albumin/glob ulin mass ratioOrdered By: Eldon Ambriz on 05-04-2023 Albumin/Globulin [Mass ratio] 1.7 {ratio} [facility] Serum or plasma high density lipoprotein (HDL) cholesterol measurementOrdered By: Eldon Ambriz on 05-04-2023 Cholesterol in HDL [Mass/Vol] 36 mg/dL 23-92 [facility] Comment on above: HDL CHOL ATP-III CLA SSIFICATION Cardiovascular RiskHDL > or equal to 60 mg/dL LOWHDL < 40 mg/dL HIGH Serum or plasma total choles terol/high density lipoprotein (HDL) cholesterol mass ratOrdered By: Eldon Ambriz on 05-04-2023 Cholesterol.total/Cholestero l in HDL [Mass ratio] 4.2 {ratio} <5.0 [facility] Triglyceride [Mass/volume] i n Serum or PlasmaOrdered By: Eldon Ambriz on 05-04-2023 Triglyceride [Mass/Vol] 211 mg/dL 0-149 [facility] Comment on above: TRIG ATP III CLASSIF ICATIONTRIG less than 150 mg/dL NormalTRIG 150-199 mg/dL Borderline highTRIG 200-500 mg/dL High TRIG greater than 500 mg/dL Very highStandard traceable to the Center for Disease Conrtrol and Prevention (CDC) test method. US renal BIon 05-04-2023 US renal BI [facility] [place] [address] [place] [id number] Ultrasound Report Signed 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 MR#: [id number] : 1970 Acct:[id number] Age/Sex: 52 / M ADM Date: 05/03/23 Loc: Room: [address] [place] [address] Type: ADM IN Attending Dr: Eldon Ambriz MD Ordering Provider: Eldon Ambriz MD Date of Service: 05/03/23 US/US renal BI: ESTELLE, rule out obstruction Copies to: lEdon Ambriz MD BILATERAL RENAL AND BLADDER ULTRASOUND CLINICAL HISTORY: Acute kidney injury COMPARISON: CT 04/18/2020 Estimation of renal size is approximately 10.6 cm on the right and 11.4 cm on the left. No shadowing calculi or hydronephrosis are identified. The candy wrapping machine operator raised question of a possible left renal cyst though it is not convincing. No other renal mass lesions were imaged. There is no perinephric fluid. The urinary bladder is partially distended with a volume of 131 mL. No contour or intraluminal abnormalities are seen. Bilateral ureteral jets are seen. US/US renal BI IMPRESSION: NO OBSTRUCTIVE UROPATHY. Impression dictated by: Flor Almonte M.D.05/04/2023 9:43 AM Dictation Location: [facility] Tech: Dyan [place] Transcribed By: WILEY 05/04/23 0943 Dictated By: Flor Almonte MD 05/04/23 0932 Signed By: 05/04/2343 Normal [facility] A1C with Estimated Average G luon 05-03-2023 Glucose [Mass/Vol] 266 mg/dL Normal [facility] Comment on above: Order Comment: Comme nt Add onto previous lab draw Result Comment: PERF ORMED BY: [place] [id number] PATHOLOGIST BYPRODUCT ENGINEER ANIL GUAMAN M.D. Performed By: #### C BC, LIPASE, HEPATIC, BMP #### [address] HbA1c (Bld) [Mass fraction] 10.9 % High 4.3-5.6 [facility] Comment on above: Order Comment: Comme nt Add onto previous lab draw Result Comment: Incr eased risk for diabetes: 5.7 - 6.4 diabetes: >6.4 glycemic control for adults with diabetes: <7.0 Performed By: #### C BC, LIPASE, HEPATIC, BMP #### [address] Activated partial thrombopla stin time (aPTT) in platelet poor plasma by coagulation aOrdered By: Preet Burrows on 05-03-2023 aPTT Coag (PPP) [Time] 22.8 s 25.1-36.5 [facility] Amphetamine Screen Ql (U)Ord ered By: Eldon Ambriz on 05-03-2023 Amphetamines Ql (U) Negative Negative [facility] B-Type Natriuretic Peptideon 05-03-2023 Natriuretic peptide B (Bld) [Mass/Vol] 20.0 pg/mL Normal 5-100 [facility] Comment on above: Result Comment: PERF ORMED BY: [place] [address] PATHOLOGIST BYPRODUCT ENGINEER ANIL GUAMAN M.D. Performed By: #### C MP, TSH3, LIPID #### [facility] [address] [place] [address] Barbiturates [Presence] in U rine by Screen methodOrdered By: Eldon Ambriz on 05-03-2023 Barbiturates Screen Ql (U) Negative Negative [facility] Basic Metabolic Panelon - Anion gap [Moles/Vol] 14.6 mmol/L Normal 6.0-15.0 [facility] Comment on above: Performed By: #### C MP, TSH3, LIPID #### [facility] [address] [place] [address] [place] Calcium [Mass/Vol] 9.6 mg/dL Normal 8.6-10.3 [facility] Comment on above: Performed By: #### C MP, TSH3, LIPID #### [facility] [address] [place] [address] [place] Chloride [Moles/Vol] 93 mmol/L Low 98-107 [facility] Comment on above: Performed By: #### C MP, TSH3, LIPID #### [facility] [address] [place] [address] [place] CO2 [Moles/Vol] 28.5 mmol/L Normal 21.0-31.0 [facility] Comment on above: Performed By: #### C MP, TSH3, LIPID #### [facility] [address] [place] [address] [place] Creatinine [Mass/Vol] 2.23 mg/dL High 0.70-1.30 [facility] Comment on above: Performed By: #### C MP, TSH3, LIPID #### [facility] [address] [place] [address] [place] Creatinine Clr Calc Pharmacy 35.50 [facility] Comment on above: Result Comment: PERF ORMED BY: [place] [address] PATHOLOGIST BYPRODUCT ENGINEER ANIL GUAMAN M.D. Performed By: #### C ORI TSH3, LIPID #### [facility] [address] [place] [address] [place] GFR/1.73 sq M.predicted MDRD (S/P/Bld) [Vol rate/Area] 34.376 mL/min/{1.73_m2} [facility] Comment on above: Performed By: #### C MP, TSH3, LIPID #### [facility] [address] [place] [address] [place] Glucose [Mass/Vol] 350 mg/dL High 70-100 [facility] Comment on above: Result Comment: [place] Glucose Reference Range is dependent on time and content of last meal. Glucose of more than 200 mg/dL in a nonstressed, ambulatory subject supports the diagnosis of Diabetes Mellitus. ADA recommended reference range Performed By: #### C MP, TSH3, LIPID #### [facility] [address] Potassium [Moles/Vol] 4.1 mmol/L Normal 3.5-5.1 [facility] Comment on above: Performed By: #### C MP, TSH3, LIPID #### [facility] [address] Sodium [Moles/Vol] 132 mmol/L Low 136-145 [facility] Comment on above: Performed By: #### C ORI, TSH3, LIPID #### [facility] [address] Urea nitrogen [Mass/Vol] 35 mg/dL High 7-25 [facility] Comment on above: Performed By: #### C ORI, TSH3, LIPID #### [facility] [address] Basophils Auto (Bld) [#/Vol] Ordered By: Preet Burrows on 05-03-2023 Basophils (Bld) [#/Vol] 0.0 10*3/uL 0.0-0.2 [facility] Basophils/100 WBC Auto (Bld) Ordered By: Preet Burrows on 05-03-2023 Basophils/100 WBC (Bld) 0.3 % . [facility] Benzodiazepines Screen Ql (U )Ordered By: Eldon Ambriz on 05-03-2023 Benzodiazepines Ql (U) Negative Negative Fi [facility] Benzoylecgonine [Presence] i n Urine by Screen methodOrdered By: Eldon Ambriz on 05-03-2023 Benzoylecgonine Screen Ql (U) Positive Negati ve [facility] Beta Hydroxybuterateon 05-03 Beta Hydroxybuterate 0.70 mmol/L High 0.02-0.27 [facility] Comment on above: Result Comment: PERF ORMED BY: [facility] [address] [place] [address] PATHOLOGIST BYPRODUCT ENGINEER ANIL GUAMAN M.D. Performed By: #### U RDS, ADDONUAPLUS #### [facility] [address] [place] [address] Beta hydroxybutyrate [Moles/ volume] in Serum or PlasmaOrdered By: Preet Burrows on 05-03-2023 Beta hydroxybutyrate [Moles/Vol] 0.70 mmol/L 0. 02-0.27 [facility] Bilirubin Test strip Ql (U)O rdered By: Preet Burrows on 05-03-2023 Bilirubin Ql (U) Negative Negative [facility] BioFire Not Detectedon 05-03 BioFire Not Detected Not detected Normal Not Detecte [facility] Comment on above: Result Comment: This is a duplicate RP2.1 COVID (PCR) result to be used for statistical tracking purpose only. PERFORMED BY: [place] [address] PATHOLOGIST BYPRODUCT ENGINEER ANIL GUAMAN M.D. Performed By: #### R AUDRA PANEL UPP., BIOFIRECOVNOTDE #### [facility] [address] [place] [address] COVID-19 Detected/Not Detect edOrdered By: Eldon Ambriz on 05-03-2023 SARS-CoV-2 (COVID-19) RNA SILVIA+non-probe Ql (Nph) Not detected Not Detecte [facility] Comment on above: This is a duplicate RP2.1 COVID (PCR) result to be used for statistical tracking purpose only. Calcium [Mass/volume] in Ser um or PlasmaOrdered By: Preet Burrows on 05-03-2023 Calcium [Mass/Vol] 9.6 mg/dL 8.6-10.3 [facility] Cannabinoids [Presence] in U rine by Screen methodOrdered By: Eldon Ambriz on 05-03-2023 Cannabinoids Screen Ql (U) Negative Negative [facility] Comment on above: These are unconfirme d results and should not be used for legal purposes. Drug Cut-Off Concentration: AMPH 1000 ng/mL CHRISTINA 200 ng/mL CHRISTIANO 200 ng/mL COCM 300 ng/mL OP 300 ng/mL PCP 25 ng/mL THC 20 ng/mL Carbon dioxide, total [Moles /volume] in Serum or PlasmaOrdered By: Preet Burrows on 05-03-2023 CO2 [Moles/Vol] 28.5 mmol/L 21.0-31.0 [facility] Chloride [Moles/volume] in S tino or PlasmaOrdered By: Preet Burrows on 05-03-2023 Chloride [Moles/Vol] 93 mmol/L 98-107 [facility] Color Auto (U)Ordered By: Luis Manuel Burrows on 05-03-2023 Color (U) Yellow Yellow [facility] Complete Blood Count Auto Di ffon 05-03-2023 Basophils (Bld) [#/Vol] 0.0 10*3/uL Normal 0.0-0.2 [facility] Comment on above: Result Comment: PERF ORMED BY: [place] [address] PATHOLOGIST BYPRODUCT ENGINEER ANIL GUAMAN M.D. Performed By: #### C MP, TSH3, LIPID #### [facility] [address] Basophils/100 WBC (Bld) 0.3 % Normal . [facility] Comment on above: Performed By: #### C MP, TSH3, LIPID #### [facility] [address] [place] [address] [place] Eosinophils (Bld) [#/Vol] 0.0 10*3/uL Normal 0.0-0.45 [facility] Comment on above: Performed By: #### C MP, TSH3, LIPID #### [facility] [address] [place] [address] [place] Eosinophils/100 WBC (Bld) 0.2 % Normal . [facility] Comment on above: Performed By: #### C MP, TSH3, LIPID #### [facility] [address] Erythrocyte distribution wid th (RBC) [Ratio] 12.4 % Normal 12.0-14.8 [facility] Comment on above: Performed By: #### C MP, TSH3, LIPID #### [address] Hematocrit (Bld) [Volume fraction] 40.9 % Normal 38.8-50.0 [facility] Comment on above: Performed By: #### C MP, TSH3, LIPID #### [address] Hemoglobin (Bld) [Mass/Vol] 14.3 g/dL Normal 13.0-17. 0 [facility] Comment on above: Performed By: #### C MP, TSH3, LIPID #### [address] Lymphocytes (Bld) [#/Vol] 1.0 10*3/uL Normal 1.00-4.8 [facility] Comment on above: Performed By: #### C MP, TSH3, LIPID #### [address] Lymphocytes/100 WBC (Bld) 13.0 % Normal . [facility] Comment on above: Performed By: #### C MP, TSH3, LIPID #### [address] MCH (RBC) [Entitic mass] 32.6 pg Normal 27.5-35.2 [facility] Comment on above: Performed By: #### C MP, TSH3, LIPID #### [address] MCV (RBC) [Entitic vol] 93.0 fL Normal 83.5-101 [facility] Comment on above: Performed By: #### C MP, TSH3, LIPID #### [address] Mean Corpuscular HGB Conc 35.1 g/dL Normal 32.5-35.6 [facility] Comment on above: Performed By: #### C MP, TSH3, LIPID #### [address] Monocytes (Bld) [#/Vol] 0.5 10*3/uL Normal 0.0-0.8 [facility] Comment on above: Performed By: #### C MP, TSH3, LIPID #### [facility] [address] [place] [address] [place] Monocytes/100 WBC (Bld) 15.82 % Normal 0.00-20.00 [facility] Comment on above: Performed By: #### C MP, TSH3, LIPID #### [facility] [address] [place] [address] [place] Monocytes/100 WBC (Bld) 6.1 % Normal . [facility] Comment on above: Performed By: #### C MP, TSH3, LIPID #### [facility] [address] [place] [address] [place] Neutrophils (Bld) [#/Vol] 6.2 10*3/uL Normal 1.8-7.7 [facility] Comment on above: Performed By: #### C MP, TSH3, LIPID #### [facility] [address] [place] [address] [place] Neutrophils/100 WBC (Bld) 80.4 % Normal . [facility] Comment on above: Performed By: #### C MP, TSH3, LIPID #### [facility] [address] [place] [address] [place] NRBC% 0.1 /100{WBC} Normal 0-0.5 [facility] Comment on above: Performed By: #### C MP, TSH3, LIPID #### [facility] [address] [place] [address] [place] Platelet mean volume (Bld) [Entitic vol] 8.9 fL Normal 6.6-10.1 [facility] Comment on above: Performed By: #### C MP, TSH3, LIPID #### [facility] [address] [place] [address] [place] Platelets (Bld) [#/Vol] 169 10*3/uL Normal 150-450 [facility] Comment on above: Performed By: #### C MP, TSH3, LIPID #### [facility] [address] RBC (Bld) [#/Vol] 4.40 10*6/uL Normal 3.90-5.60 [facility] Comment on above: Performed By: #### C MP, TSH3, LIPID #### [facility] [address] WBC (Bld) [#/Vol] 7.7 10*3/uL Normal 4.1-10.5 [facility] Comment on above: Performed By: #### C MP, TSH3, LIPID #### [facility] [address] Creatine Kinaseon 05-03-2023 CK [Catalytic activity/Vol] 73 U/L Normal [facility] Comment on above: Performed By: #### C MP, TSH3, LIPID #### [facility] [address] Creatine kinase [Enzymatic a ctivity/volume] in Serum or PlasmaOrdered By: Preet Burrows on 05-03-2023 CK [Catalytic activity/Vol] 73 U/L [facility] Creatinine [Mass/volume] in Serum or PlasmaOrdered By: Preet Burrows on 05-03-2023 Creatinine [Mass/Vol] 2.23 mg/dL 0.70-1.30 [facility] Creatinine [Mass/volume] in UrineOrdered By: Eldon Ambriz on 05-03-2023 Creatinine (U) [Mass/Vol] 80.0 mg/dL 14.0-26.0 [facility] Creatinine, Urine (Random)on 05-03-2023 Creatinine, Urine (Random) 80.0 mg/dL High 14.0-26.0 [facility] Comment on above: Performed By: #### U RDS, ADDONUAPLUS #### [facility] [address] Drug Screen,Urineon 05-03-20 Amphetamine Screen,Urine Negative Normal Negative [facility] Comment on above: Performed By: #### C BC, LIPASE, HEPATIC, BMP #### [place] [address] [place] Barbiturate Screen,Urine Negative Normal Negative [facility] Comment on above: Performed By: #### C BC, LIPASE, HEPATIC, BMP #### [place] [address] [place] Benzodiazepines Screen,Urine Negative Normal Negativ e [facility] Comment on above: Performed By: #### C BC, LIPASE, HEPATIC, BMP #### [place] [address] [place] Cannabinoid Screen,Urine Negative Normal Negative [facility] Comment on above: Result Comment: Thes e are unconfirmed results and should not be used for legal purposes. Drug Cut-Off Concentration: AMPH 1000 ng/mL CHRISTINA 200 ng/mL CHRISTIANO 200 ng/mL COCM 300 ng/mL OP 300 ng/mL PCP 25 ng/mL THC 20 ng/mL PERFORMED BY: [place] [address] PATHOLOGIST BYPRODUCT ENGINEER ANIL GUAMAN M.D. Performed By: #### C BC, LIPASE, HEPATIC, BMP #### [place] [address] [place] Cocaine Screen,Urine Positive High Negative [facility] Comment on above: Performed By: #### C BC, LIPASE, HEPATIC, BMP #### [address] Opiate Screen,Urine Negative Normal Negative [facility] Comment on above: Performed By: #### C BC, LIPASE, HEPATIC, BMP #### [place] [address] [place] Phencyclidine Screen,Urine Negative Normal Negative [facility] Comment on above: Performed By: #### C BC, LIPASE, HEPATIC, BMP #### [place] [address] [place] ECG 12 lead ECGon 05-03-2023 ECG 12 lead ECG [facility] [place] [address] [place] [address] Electrocardiograph Report Signed 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 MR#: [id number] : 1970 Acct:[id number] Age/Sex: 52 / M ADM Date: 05/03/23 Loc: ER Room: Type: [facility] ER Attending Dr: Ordering Provider: Preet Burrows PA-C Date of Service: 05/03/2305/20/1337 ECG/ECG 12 lead ECG: Nausea/Vomiting/Diarrhea Copies to: Test Reason : Blood Pressure : 126/074 mmHG Vent. Rate : 104 BPM Atrial Rate : 104 BPM P-R Int : 178 ms QRS Dur : 082 ms QT Int : 324 ms P-R-T Axes : 023 -12 012 degrees QTc Int : 426 ms Sinus tachycardia Moderate voltage criteria for LVH, may be normal variant Confirmed by Dave HENDRICKS DO ([id number]) on 05/03/2023 7:30:30 PM Referred By: Electronically Signed By:Dave HENDRICKS DO Transcribed By: MUS Signed By Dave Hendricks DO 0 05/03/23 1930 Normal [facility] Eosinophils Auto (Bld) [#/Vo l]Ordered By: Preet Burrows on 05-03-2023 Eosinophils (Bld) [#/Vol] 0.0 10*3/uL 0.0-0.45 [facility] Eosinophils/100 WBC Auto (Bl d)Ordered By: Preet Burrows on 05-03-2023 Eosinophils/100 WBC (Bld) 0.2 % . [facility] Erythrocyte distribution wid th Auto (RBC) [Ratio]Ordered By: Preet Burrows on 05-03-2023 Erythrocyte distribution wid th (RBC) [Ratio] 12.4 % 12.0-14.8 [facility] Glucose Glucometer (BldC) [M ass/Vol]Ordered By: Eldon Ambriz on 05-03-2023 Glucose [Mass/Vol] 268 mg/dL [facility] Comment on above: Random Glucose Refer ence Range is dependent on time and content of last meal. Glucose of more than 200 mg/dL in a nonstressed, ambulatory subject supports the diagnosis of Diabetes Mellitus. Glucose Poct Glucometerson 0 05-03-2023 Glucose [Mass/Vol] 268 mg/dL Normal [facility] Comment on above: Result Comment: [place] om Glucose Reference Range is dependent on time and content of last meal. Glucose of more than 200 mg/dL in a nonstressed, ambulatory subject supports the diagnosis of Diabetes Mellitus. PERFORMED BY: [facility] [address] [place] [address] PATHOLOGIST BYPRODUCT ENGINEER NAIL GUAMAN M.D. Performed By: #### C MP, TSH3, LIPID #### [facility] [address] Glucose [Mass/volume] in Ser um or PlasmaOrdered By: Preet Burrows on 05-03-2023 Glucose [Mass/Vol] 350 mg/dL 70-100 [facility] Comment on above: ADA recommended refe rence rangeRandom Glucose Reference Range is dependent on time and content of last meal. Glucose of more than 200 mg/dL in a nonstressed, ambulatory subject supports the diagnosis of Diabetes Mellitus. Glucose mean value [Mass/vol ume] in Blood Estimated from glycated hemoglobinOrdered By: Eldon Ambriz on 05-03-2023 Average glucose Estimated fr om glycated hemoglobin (Bld) [Mass/Vol] 266 mg/dL [facility] Hematocrit Auto (Bld) [Volum e fraction]Ordered By: Preet Burrows on 05-03-2023 Hematocrit (Bld) [Volume fraction] 40.9 % 3 8.8-50.0 [facility] Hemoglobin A1c percentageOrd ered By: Eldon Ambriz on 05-03-2023 HbA1c (Bld) [Mass fraction] 10.9 % 4.3-5.6 [facility] Comment on above: Increased risk for d iabetes: 5.7 - 6.4diabetes: >6.4glycemic control for adults with diabetes: <7.0 Hemoglobin [Mass/volume] in BloodOrdered By: Preet Burrows on 05-03-2023 Hemoglobin (Bld) [Mass/Vol] 14.3 g/dL 13.0-17. 0 [facility] Ketones Auto test strip (U) [Mass/Vol]Ordered By: Preet Burrows on 05-03-2023 Ketones (U) [Mass/Vol] Trace Negative [facility] Laboratory - Chemistry and C hemistry - challengeOrdered By: Preet Burrows on 05-03-2023 CO2 [Moles/Vol] 32.1 mmol/L 24.0-29.0 [facility] HCO3 (Bld) [Moles/Vol] 30.6 mmol/L 23.0-29.0 [facility] Laboratory - CoagulationOrde red By: Preet Burrows on 05-03-2023 PT Coag (PPP) [Time] 11.6 s 9.0-12.9 [facility] Leukocytes [#/volume] correc billy for nucleated erythrocytes in Blood by Automated counOrdered By: Preet Burrows on 05-03-2023 WBC corrected for nucl RBC A uto (Bld) [#/Vol] 7.7 10*3/uL 4.1-10.5 [facility] Lipaseon 05-03-2023 Lipase [Catalytic activity/Vol] 63.0 U/L Normal 11.0 -82.0 [facility] Comment on above: Performed By: #### U RDS, ADDONUAPLUS #### [facility] [address] Lipase [Enzymatic activity/v olume] in Serum or PlasmaOrdered By: Preet Burrows on 05-03-2023 Lipase [Catalytic activity/Vol] 63.0 U/L 11.0 -82.0 [facility] Lymphocytes Auto (Bld) [#/Vo l]Ordered By: Preet Burrows on 05-03-2023 Lymphocytes (Bld) [#/Vol] 1.0 10*3/uL 1.00-4.8 [facility] Lymphocytes/100 WBC Auto (Bl d)Ordered By: Preet Burrows on 05-03-2023 Lymphocytes/100 WBC (Bld) 13.0 % . [facility] MCH Auto (RBC) [Entitic mass ]Ordered By: Preet Burrows on 05-03-2023 MCH (RBC) [Entitic mass] 32.6 pg 27.5-35.2 [facility] MCHC Auto (RBC) [Mass/Vol]Or dered By: Preet Burrows on 05-03-2023 MCHC (RBC) [Mass/Vol] 35.1 g/dL 32.5-35.6 [facility] MCV Auto (RBC) [Entitic vol] Ordered By: Preet Burrwos on 05-03-2023 MCV (RBC) [Entitic vol] 93.0 fL 83.5-101 [facility] Monocyte distribution width [Entitic volume] in Blood by AutomatedOrdered By: Preet Burrows on 05-03-2023 Monocyte distribution width Auto (Bld) [Entitic vol] 15.82 % 0.00-20.00 [facility] Monocytes Auto (Bld) [#/Vol] Ordered By: Preet Burrows on 05-03-2023 Monocytes (Bld) [#/Vol] 0.5 10*3/uL 0.0-0.8 [facility] Monocytes/100 WBC Auto (Bld) Ordered By: Preet Burrows on 05-03-2023 Monocytes/100 WBC (Bld) 6.1 % . [facility] Natriuretic peptide B [Mass/ Vol]Ordered By: Preet Burrows on 05-03-2023 Natriuretic peptide B (Bld) [Mass/Vol] 20.0 pg/mL 5-100 [facility] [facility] Neut[facility] Auto (Bld) [#/Vo l]Ordered By: Preet Burrows on 05-03-2023 Neutrophils (Bld) [#/Vol] 6.2 10*3/uL 1.8-7.7 [facility] Neutrophils/100 WBC Auto (Bl d)Ordered By: Preet Burrows on 05-03-2023 Neutrophils/100 WBC (Bld) 80.4 % . [facility] Nitrite Test strip Ql (U)Ord ered By: Preet Burrows on 05-03-2023 Nitrite Ql (U) Negative Negative [facility] No Panel InformationOrdered By: Preet Burrows on 05-03-2023 Blood Gas Critical Value See comment [facility] Comment on above: Critical Value topete d on: 05/03/2023 at 15:28 Blood Gas Sample Site Venous [facility] FiO2 21 % [facility] Venous Blood Base Excess 4.4 mmol/L -3.0-3.0 [facility] Venous Blood Oxygen Content 2.8 mmol/L 6.6-9.7 [facility] Venous Blood Oxygen Saturation 31.2 % 73.0- 76.0 [facility] Venous Blood Partial Pressur e CO2 51.3 mm[Hg] 38.0-50.0 [facility] Venous Blood Partial Pressur e O2 18.5 mm[Hg] 35.0-45.0 [facility] Venous Blood pH 7.39 7.32-7.43 [facility] Estimated GFR (CKD-EPI) 34.376 mL/Min [facility] Creatinine Clearanc e (Chem 35.50 [facility] Nucleated erythrocytes [Pres ence] in Blood by Automated countOrdered By: Preet Burrows on 05-03-2023 Nucleated RBC Auto Ql (Bld) 0.1 /100{WBC} 0-0.5 [facility] Opiates [Presence] in Urine by Screen methodOrdered By: Eldon Ambriz on 05-03-2023 Opiates Screen Ql (U) Negative Negative [facility] Partial Thromboplastin Timeo n 05-03-2023 aPTT Coag (Bld) [Time] 22.8 s Low 25.1-36.5 [facility] Comment on above: Result Comment: PERF ORMED BY: [place] [address] PATHOLOGIST BYPRODUCT ENGINEER ANIL GUAMAN M.D. Performed By: #### C MP, TSH3, LIPID #### [address] Phencyclidine Screen Ql (U)O rdered By: Eldon Ambriz on 05-03-2023 Phencyclidine Ql (U) Negative Negative [facility] Platelet mean volume Auto (B ld) [Entitic vol]Ordered By: Preet Burrows on 05-03-2023 Platelet mean volume (Bld) [Entitic vol] 8.9 fL 6.6-10.1 [facility] Platelet poor plasma interna tional normalized ratio (INR) by coagulation assay (relatOrdered By: Preet Burrows on 05-03-2023 INR Coag (PPP) [Relative time] 1.0 {INR} [facility] Comment on above: INR Therapeutic Rang e A) Pre- and Peroperative OAT started two weeks before surgery. NOT HIP SURGERY: 1.5 - 2.5 HIP SURGERY: 2 - 3B) Primary and secondary prevention of venous THROMBOSIS: 2 - 3C) Active venous thrombosis, pulmonary embolismand prevention of recurrent venous thrombosis: 2 - 3D) Prevention of arterial thromboembolismincluding patients with mechanical heart valves: 3 - 4.5 Platelets Auto (Bld) [#/Vol] Ordered By: Preet Burrows on 05-03-2023 Platelets (Bld) [#/Vol] 169 10*3/uL 150-450 [facility] Potassium [Moles/volume] in Serum or PlasmaOrdered By: Preet Burrows on 05-03-2023 Potassium [Moles/Vol] 4.1 mmol/L 3.5-5.1 [facility] Protein Auto test strip (U) [Mass/Vol]Ordered By: Preet Burrows on 05-03-2023 Protein (U) [Mass/Vol] Negative Negative [facility] Prothrombin Time INRon 05-03 INR Coag (PPP) [Relative time] 1.0 {INR} Normal [facility] Comment on above: Result Comment: INR Therapeutic Range A) Pre- and Peroperative OAT started two weeks before surgery. NOT HIP SURGERY: 1.5 - 2.5 HIP SURGERY: 2 - 3 B) Primary and secondary prevention of venous THROMBOSIS: 2 - 3 C) Active venous thrombosis, pulmonary embolism and prevention of recurrent venous thrombosis: 2 - 3 D) Prevention of arterial thromboembolism including patients with mechanical heart valves: 3 - 4.5 Performed By: #### C ORI TSH3, LIPID #### [facility] [address] PT Coag (PPP) [Time] 11.6 s Normal 9.0-12.9 [facility] Comment on above: Performed By: #### C ORI TSH3, LIPID #### [facility] [address] RBC Auto (Bld) [#/Vol]Ordere d By: Preet Burrows on 05-03-2023 RBC (Bld) [#/Vol] 4.40 10*6/uL 3.90-5.60 [facility] Respiratory (Upper) Panel, P CRon 05-03-2023 Respiratory (Upper) Panel, PCR Adenovirus Not detected Bordetella parapertussis Not detected Chlamydia pneumoniae Not detected Coronavirus 229E Not detected Coronavirus HKU1 Not detected Coronavirus NL63 Not detected Coronavirus OC43 Not detected Influenza A Not detected Influenza B Not detected Human Metapneumovirus Not detected Mycoplasma pneumoniae Not detected Parainfluenza Virus 1 Not detected Parainfluenza Virus 2 Not detected Parainfluenza Virus 3 Not detected Parainfluenza Virus 4 Not detected Bordetella pertussis-ptxP Not detected Human Rhino/Enterovirus Not detected Resp. Syncytial Virus Not detected COVID-19 Detected/Not Detected Not detected Blank Space FLUA TEST INCLUDES Influenza A tests for the following clinically FLUA TEST INCLUDES significant subtypes: FLUA TEST INCLUDES - Influenza A FLUA TEST INCLUDES - Influenza A H1 FLUA TEST INCLUDES - Influenza A H1 2009 FLUA TEST INCLUDES - Influenza A H3 Blank Space PERFORMED BY: [facility] [address] [place] [address] PATHOLOGIST BYPRODUCT ENGINEER ANIL GUAMAN M.D. Normal [facility] Comment on above: Performed By: #### R AUDRA PANEL UPP., BIOFIRECOVNOTDE #### [facility] [address] Respiratory pathogens DNA an d RNA panel - Nasopharynx by SILVIA with non-probe detectionOrdered By: Eldon Ambriz on 05-03-2023 Respiratory pathogens DNA an d RNA panel SILVIA+non-probe (Nph) [facility] Serum or plasma anion gap de terminationOrdered By: Preet Burrows on 05-03-2023 Anion gap [Moles/Vol] 14.6 mmol/L 6.0-15.0 [facility] Sodium [Moles/volume] in Ser um or PlasmaOrdered By: Preet Burrows on 05-03-2023 Sodium [Moles/Vol] 132 mmol/L 136-145 [facility] Sodium [Moles/volume] in Uri neOrdered By: Eldon Ambriz on 05-03-2023 Sodium (U) [Moles/Vol] 105 mmol/L [facility] Comment on above: No reference range e stablished Sodium, Urine (Random)on Sodium (U) [Moles/Vol] 105 mmol/L Normal [facility] Comment on above: Result Comment: No r eference range established PERFORMED BY: [place] [address] PATHOLOGIST BYPRODUCT ENGINEER ANIL GUAMAN M.D. Performed By: #### U RDS, ADDONUAPLUS #### [facility] [address] [place] [address] Specific gravity Auto test s trip (U) [Rel density]Ordered By: Preet Burrows on 05-03-2023 Specific gravity (U) [Rel density] 1.013 1.001-1.030 [facility] Troponin I High Sensitivityo n 05-03-2023 Troponin I High Sensitivity 14.2 pg/mL Normal 0.0-20.0 [facility] Comment on above: Result Comment: PERF ORMED BY: [place] [address] PATHOLOGIST BYPRODUCT ENGINEER ANIL GUAMAN M.D. Performed By: #### C MP, TSH3, LIPID #### [facility] [address] [place] [address] Troponin I.cardiac [Mass/vol ume] in Serum or Plasma by Detection limit <= 0.01 ng/Ordered By: Preet Burrows on 05-03-2023 Troponin I.cardiac DL <= 0.0 1 ng/mL [Mass/Vol] 14.2 pg/mL 0.0-20.0 [facility] Urea nitrogen [Mass/volume] in Serum or PlasmaOrdered By: Preet Burrows on 05-03-2023 Urea nitrogen [Mass/Vol] 35 mg/dL 06-21 [facility] Urinalysison 05-03-2023 Appearance (U) Clear Normal Clear [facility] Comment on above: Order Comment: Reaso n for Exam Weight loss;Nausea vomiting;Type 2 diabetes mellitus with PT IS FASTING Performed By: #### C MP, TSH3, LIPID #### [facility] [address] [place] [address] [place] Bilirubin,Urine Negative Normal Negative [facility] Comment on above: Order Comment: Reaso n for Exam Weight loss;Nausea vomiting;Type 2 diabetes mellitus with PT IS FASTING Performed By: #### C MP, TSH3, LIPID #### [facility] [address] Color (U) Yellow Normal Yellow [facility] Comment on above: Order Comment: Reaso n for Exam Weight loss;Nausea vomiting;Type 2 diabetes mellitus with PT IS FASTING Performed By: #### C MP, TSH3, LIPID #### [facility] [address] [place] [address] [place] Glucose Ql (U) >=1000 [facility] Comment on above: Order Comment: Reaso n for Exam Weight loss;Nausea vomiting;Type 2 diabetes mellitus with PT IS FASTING Performed By: #### C MP, TSH3, LIPID #### [facility] [address] [place] [address] [place] Ketones Ql (U) Trace High Negative [facility] Comment on above: Order Comment: Reaso n for Exam Weight loss;Nausea vomiting;Type 2 diabetes mellitus with PT IS FASTING Performed By: #### C MP, TSH3, LIPID #### [facility] [address] [place] [address] [place] Leukocyte esterase Test stri p Ql (U) Negative Normal Negative [facility] Comment on above: Order Comment: Reaso n for Exam Weight loss;Nausea vomiting;Type 2 diabetes mellitus with PT IS FASTING Performed By: #### C MP, TSH3, LIPID #### [facility] [address] [place] [address] [place] Nitrite,Urine Negative Normal Negative [facility] Comment on above: Order Comment: Reaso n for Exam Weight loss;Nausea vomiting;Type 2 diabetes mellitus with PT IS FASTING Performed By: #### C MP, TSH3, LIPID #### [facility] [address] [place] [address] Occult Blood,Urine Negative Normal Negative [facility] Comment on above: Order Comment: Reaso n for Exam Weight loss;Nausea vomiting;Type 2 diabetes mellitus with PT IS FASTING Result Comment: PERF ORMED BY: [place] [address] PATHOLOGIST BYPRODUCT ENGINEER ANIL GUAMAN M.D. Performed By: #### C MP, TSH3, LIPID #### [address] pH (U) 5.5 [pH] Normal 5.0-9.0 [facility] Comment on above: Order Comment: Reaso n for Exam Weight loss;Nausea vomiting;Type 2 diabetes mellitus with PT IS FASTING Performed By: #### C MP, TSH3, LIPID #### [facility] [address] [place] [address] [place] Protein,Urine Negative Normal Negative [facility] Comment on above: Order Comment: Reaso n for Exam Weight loss;Nausea vomiting;Type 2 diabetes mellitus with PT IS FASTING Performed By: #### C MP, TSH3, LIPID #### [facility] [address] [place] [address] [place] Specificy [place],Urine 1.013 Normal 1.001-1.030 [facility] Comment on above: Order Comment: Reaso n for Exam Weight loss;Nausea vomiting;Type 2 diabetes mellitus with PT IS FASTING Performed By: #### C MP, TSH3, LIPID #### [facility] [address] [place] [address] [place] Urobilinogen,Urine Normal Normal Normal [facility] Comment on above: Order Comment: Reaso n for Exam Weight loss;Nausea vomiting;Type 2 diabetes mellitus with PT IS FASTING Performed By: #### C MP, TSH3, LIPID #### [address] [place] [address] [facility] Urine clarity by refractomet ry automatedOrdered By: Preet Burrows on 05-03-2023 Clarity Refractometry automated (U) Clear Clear [facility] Urine glucose measurement by automated test strip (mass/volume)Ordered By: Preet Burrows on 05-03-2023 Glucose Auto test strip (U) [Mass/Vol] >=1000 mg/dL Normal [facility] Urine hemoglobin detection b y automated test stripOrdered By: Preet Burrows on 05-03-2023 Hemoglobin Auto test strip Ql (U) Negative Ne gative [facility] Urine leukocyte esterase det ection by automated test stripOrdered By: Preet Burrows on 05-03-2023 Leukocyte esterase Auto test strip Ql (U) Negative Negative [facility] Urobilinogen Auto test strip (U) [Mass/Vol]Ordered By: Preet Burrows on 05-03-2023 Urobilinogen (U) [Mass/Vol] Normal mg/dL Normal [facility] Venous Blood Gason 3 CO2 [Moles/Vol] 32.1 mmol/L High 24.0-29.0 [facility] Comment on above: Performed By: #### V BG #### Point of Care testing , HCO3 (Bld) [Moles/Vol] 30.6 mmol/L High 23.0-29.0 [facility] Comment on above: Performed By: #### V BG #### Point of Care testing , Respiratory Critical Normal [facility] Comment on above: Result Comment: Crit ical Value called on: 05/03/2023 at 15:28 PERFORMED BY: [place] [address] PATHOLOGIST BYPRODUCT ENGINEER ANIL GUAMAN M.D. Performed By: #### V BG #### Point of Care testing , VBG Base Excess 4.4 mmol/L High -3.0-3.0 [facility] Comment on above: Performed By: #### V BG #### Point of Care testing , VBG Draw Site Venous Normal [facility] Comment on above: Performed By: #### V BG #### Point of Care testing , VBG Frac Inspired O2 21 % Normal [facility] Comment on above: Performed By: #### V BG #### Point of Care testing , VBG O2 Content 2.8 mmol/L Low 6.6-9.7 [facility] Comment on above: Performed By: #### V BG #### Point of Care testing , VBG Oxygen Saturation 31.2 % Off scale low 73.0-76.0 [facility] Comment on above: Performed By: #### V BG #### Point of Care testing , VBG PCO2 51.3 mm[Hg] High 38.0-50.0 [facility] Comment on above: Performed By: #### V BG #### Point of Care testing , VBG PH Venous PH 7.39 Normal 7.32-7.43 [facility] Comment on above: Performed By: #### V BG #### Point of Care testing , VBG PO2 18.5 mm[Hg] Off scale low 35.0-45.0 [facility] Comment on above: Performed By: #### V BG #### Point of Care testing , WBC Auto (Bld) [#/Vol]Ordere d By: Preet Burrows on 05-03-2023 WBC (Bld) [#/Vol] 7.7 10*3/uL 4.1-10.5 [facility] XR chest 2V*on 05-03-2023 XR chest 2V* [place] [address] XRay Report Signed 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 MR#: [id number] : 1970 Acct:[id number] Age/Sex: 52 / M ADM Date: 05/03/23 Loc: ER Room: Type: PRE ER Attending Dr: Copies to: ALYSA PROVIDER Ordering Provider: ALYSA PROVIDER Date of Service: 05/03/23 XR/XR chest 2V*: Nausea/Vomiting/Diarrhea PA AND LATERAL CHEST: CLINICAL HISTORY: Mid to left-sided chest pain, shortness of breath and nausea COMPARISON: 01/07/2023 and 01/20/2021 There is shallow inspiration. There is no focal parenchymal consolidation, effusion or pneumothorax. The cardiac, hilar and mediastinal silhouettes are within normal limits. There is no vascular congestion. Old right-sided rib fractures are noted . Thoracic fusion hardware seen previously has been removed and multiple compression deformities at the mid and lower thoracic spine are again seen.. XR/XR chest 2V* IMPRESSION: NO ACUTE CARDIOPULMONARY ABNORMALITY. Impression dictated by: Flor Almonte M.D.05/03/2023 2:03 PM Dictation Location: [place] [address] Transcribed By: [facility] 05/03/231402 Dictated By: Flor Almonte MD 05/03/231400 Signed By: 05/03/231402 Normal [facility] pH Auto test strip (U)Ordere d By: Preet Burrows on 05-03-2023 pH (U) 5.5 [pH] 5.0-9.0 [facility] Basophils Auto (Bld) [#/Vol] Ordered By: Bucky Cheng on 01-07-2023 Basophils (Bld) [#/Vol] 0.1 10*3/uL 0.0-0.2 [facility] Basophils/100 WBC Auto (Bld) Ordered By: Bucky Cheng on 01-07-2023 Basophils/100 WBC (Bld) 0.8 % . [facility] Body fluid albumin measureme nt (mass/volume)Ordered By: Bucky Cheng on 01-07-2023 Albumin (Body fld) [Mass/Vol] 3.8 g/dL 3.2-5. 5 [facility] Complete Blood Count Auto Di ffon 01-07-2023 Basophils (Bld) [#/Vol] 0.1 10*3/uL Normal 0.0-0.2 [facility] Comment on above: Result Comment: PERF ORMED BY: [facility] [address] [place] [address] PATHOLOGIST BYPRODUCT ENGINEER ANIL GUAMAN M.D. Performed By: #### U RDS, ADDONUAPLUS #### [facility] [address] [place] [address] [place] Basophils/100 WBC (Bld) 0.8 % Normal . [facility] Comment on above: Performed By: #### U RDS, ADDONUAPLUS #### [address] Eosinophils (Bld) [#/Vol] 0.0 10*3/uL Normal 0.0-0.45 [facility] Comment on above: Performed By: #### U RDS, ADDONUAPLUS #### [address] Eosinophils/100 WBC (Bld) 0.5 % Normal . [facility] Comment on above: Performed By: #### U RDS, ADDONUAPLUS #### [address] Erythrocyte distribution wid th (RBC) [Ratio] 12.8 % Normal 12.0-14.8 [facility] Comment on above: Performed By: #### U RDS, ADDONUAPLUS #### [address] Hematocrit (Bld) [Volume fraction] 43.8 % Normal 38.8-50.0 [facility] Comment on above: Performed By: #### U RDS, ADDONUAPLUS #### [address] Hemoglobin (Bld) [Mass/Vol] 15.1 g/dL Normal 13.0-17. 0 [facility] Comment on above: Performed By: #### U RDS, ADDONUAPLUS #### [place] [address] [place] Lymphocytes (Bld) [#/Vol] 2.0 10*3/uL Normal 1.00-4.8 [facility] Comment on above: Performed By: #### U RDS, ADDONUAPLUS #### [address] Lymphocytes/100 WBC (Bld) 24.6 % Normal . [facility] Comment on above: Performed By: #### U RDS, ADDONUAPLUS #### [facility] [address] MCH (RBC) [Entitic mass] 32.1 pg Normal 27.5-35.2 [facility] Comment on above: Performed By: #### U RDS, ADDONUAPLUS #### [facility] [address] MCV (RBC) [Entitic vol] 93.3 fL Normal 83.5-101 [facility] Comment on above: Performed By: #### U RDS, ADDONUAPLUS #### [address] Mean Corpuscular HGB Conc 34.4 g/dL Normal 32.5-35.6 [facility] Comment on above: Performed By: #### U RDS, ADDONUAPLUS #### [place] [address] [place] Monocytes (Bld) [#/Vol] 0.6 10*3/uL Normal 0.0-0.8 [facility] Comment on above: Performed By: #### U RDS, ADDONUAPLUS #### [place] [address] [place] Monocytes/100 WBC (Bld) 21.16 % High 0.00-20.00 [facility] Comment on above: Result Comment: For adults in ED, MDW > 20.0 may be associated with a higher risk of sepsis during the first 12 hrs of hospital admission Performed By: #### U RDS, ADDONUAPLUS #### [place] [address] [place] Monocytes/100 WBC (Bld) 8.1 % Normal . [facility] Comment on above: Performed By: #### U RDS, ADDONUAPLUS #### [place] [address] [place] Neutrophils (Bld) [#/Vol] 5.3 10*3/uL Normal 1.8-7.7 [facility] Comment on above: Performed By: #### U RDS, ADDONUAPLUS #### [address] Neutrophils/100 WBC (Bld) 66.0 % Normal . [facility] Comment on above: Performed By: #### U RDS, ADDONUAPLUS #### [facility] [address] NRBC% 0.0 /100{WBC} Normal 0-0.5 [facility] Comment on above: Performed By: #### U RDS, ADDONUAPLUS #### [address] Platelet mean volume (Bld) [Entitic vol] 9.0 fL Normal 6.6-10.1 [facility] Comment on above: Performed By: #### U RDS, ADDONUAPLUS #### [address] Platelets (Bld) [#/Vol] 197 10*3/uL Normal 150-450 [facility] Comment on above: Performed By: #### U RDS, ADDONUAPLUS #### [address] RBC (Bld) [#/Vol] 4.69 10*6/uL Normal 3.90-5.60 [facility] Comment on above: Performed By: #### U RDS, ADDONUAPLUS #### [address] WBC (Bld) [#/Vol] 8.0 10*3/uL Normal 4.1-10.5 [facility] Comment on above: Performed By: #### U RDS, ADDONUAPLUS #### [address] Comprehensive Metabolic Pane rudolph 01-07-2023 Albumin [Mass/Vol] 3.8 g/dL Normal 3.2-5.5 [facility] Comment on above: Performed By: #### U RDS, ADDONUAPLUS #### [address] Albumin/Globulin [Mass ratio] 1.0 {ratio} Normal [facility] Comment on above: Performed By: #### U RDS, ADDONUAPLUS #### [facility] [address] [place] [address] [place] ALP [Catalytic activity/Vol] 75 U/L Normal 32-92 [facility] Comment on above: Performed By: #### U RDS, ADDONUAPLUS #### [facility] [address] [place] [address] [place] ALT [Catalytic activity/Vol] 20 U/L Normal 10-60 [facility] Comment on above: Performed By: #### U RDS, ADDONUAPLUS #### [facility] [address] Anion gap [Moles/Vol] 15.6 mmol/L High 6.0-15.0 [facility] Comment on above: Performed By: #### U RDS, ADDONUAPLUS #### [facility] [address] AST [Catalytic activity/Vol] 15 U/L Normal 10-42 [facility] Comment on above: Performed By: #### U RDS, ADDONUAPLUS #### [facility] [address] [place] [address] [place] Bilirubin [Mass/Vol] 1.2 mg/dL Normal 0.3-1.2 [facility] Comment on above: Performed By: #### U RDS, ADDONUAPLUS #### [facility] [address] [place] [address] [place] Calcium [Mass/Vol] 9.4 mg/dL Normal 8.2-10.2 [facility] Comment on above: Performed By: #### U RDS, ADDONUAPLUS #### [facility] [address] [place] [address] [place] Chloride [Moles/Vol] 98 mmol/L Normal 95-114 [facility] Comment on above: Performed By: #### U RDS, ADDONUAPLUS #### [facility] [address] [place] [address] [place] CO2 [Moles/Vol] 27.8 mmol/L Normal 22.0-30.0 [facility] Comment on above: Performed By: #### U NICOLAS, ADDONUAPLUS #### [facility] [address] Creatinine [Mass/Vol] 1.07 mg/dL Normal 0.64-1.27 [facility] Comment on above: Performed By: #### U NICOLAS, ADDONUAPLUS #### [address] Creatinine Clr Calc Pharmacy 85.04 [facility] Comment on above: Performed By: #### U NICOLAS, ADDONUAPLUS #### [address] Estimated GFR ( [place] > 60 [facility] Comment on above: Result Comment: GFR estimated reference range: According to KDOQI guidelines, <60 ml/min/1.73m2 is sufficient to diagnose a patient with chronic kidney disease. Performed By: #### U NICOLAS, ADDONUAPLUS #### [address] Estimated GFR (Non- Am > 60 [facility] Comment on above: Performed By: #### U NICOLAS, ADDONUAPLUS #### [address] Globulin (S) [Mass/Vol] 3.7 g/dL Normal [facility] Comment on above: Performed By: #### U NICOLAS, ADDONUAPLUS #### [address] Glucose [Mass/Vol] 351 mg/dL High 70-100 [facility] Comment on above: Result Comment: [place] om Glucose Reference Range is dependent on time and content of last meal. Glucose of more than 200 mg/dL in a nonstressed, ambulatory subject supports the diagnosis of Diabetes Mellitus. ADA recommended reference range Performed By: #### U NICOLAS, ADDONUAPLUS #### [address] Potassium [Moles/Vol] 4.4 mmol/L Normal 3.5-5.1 [facility] Comment on above: Performed By: #### U RDS, ADDONUAPLUS #### [facility] [address] [place] [id number] [place] Protein [Mass/Vol] 7.5 g/dL Normal 6.1-7.9 [facility] Comment on above: Performed By: #### U RDS, ADDONUAPLUS #### [facility] [address] [place] [id number] [place] Sodium [Moles/Vol] 137 mmol/L Normal 136-146 [facility] Comment on above: Performed By: #### U RDS, ADDONUAPLUS #### [facility] [address] [place] [address] [place] Urea nitrogen [Mass/Vol] 35 mg/dL High - [facility] Comment on above: Performed By: #### U RDS, ADDONUAPLUS #### [facility] [address] [place] [address] [place] Creatinine and Glomerular fi ltration rate.predicted panel (S/P/Bld)Ordered By: Bucky Cheng on 01-07-2023 Creatinine [Mass/Vol] 1.07 mg/dL 0.64-1.27 [facility] ECG 12 lead ECGon 01-07-2023 ECG 12 lead ECG [facility] [place] [address] [place] [address] Electrocardiograph Report Signed 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 MR#: [id number] : 1970 Acct:[id number] Age/Sex: 52 / M ADM Date: 01/07/23 Loc: ER Room: Type: [facility] ER Attending Dr: Ordering Provider: Loy Nicholson MD Date of Service: 01/07/2309/19/1837 ECG/ECG 12 lead ECG: Abdominal Pain Copies to: Test Reason : Blood Pressure : / mmHG Vent. Rate : 107 BPM Atrial Rate : 107 BPM P-R Int : 172 ms QRS Dur : 074 ms QT Int : 334 ms P-R-T Axes : 046 -23 058 degrees QTc Int : 445 ms Sinus tachycardia Cannot rule out Anterior infarct , age undetermined Abnormal ECG When compared with ECG of 26-OCT-2022 09:35, No significant change was found Confirmed by LOY NICHOLSON MD ([id number]) on 01/08/2023 1:48:01 AM Referred By: Electronically Signed By:LOY NICHOLSON MD Transcribed By: MUS Signed By Loy Nicholson MD 12/29 12/20 0148 Normal [facility] Eosinophils Auto (Bld) [#/Vo l]Ordered By: Bucky Cheng on 01-07-2023 Eosinophils (Bld) [#/Vol] 0.0 10*3/uL 0.0-0.45 [facility] Eosinophils/100 WBC Auto (Bl d)Ordered By: Bucky Cheng on 01-07-2023 Eosinophils/100 WBC (Bld) 0.5 % . [facility] Erythrocyte distribution wid th Auto (RBC) [Ratio]Ordered By: Bucky Cheng on 01-07-2023 Erythrocyte distribution wid th (RBC) [Ratio] 12.8 % 12.0-14.8 [facility] Estimated glomerular filtrat ion rate (GFR) non- AmericanOrdered By: Bucky Cheng on 01-07-2023 GFR/1.73 sq M.predicted michael g non-blacks MDRD (S/P/Bld) [Vol rate/Area] > 60 mL/Min [facility] Globulin Calc (S) [Mass/Vol] Ordered By: Bucky Cheng on 01-07-2023 Globulin (S) [Mass/Vol] 3.7 g/dL [facility] Hematocrit Auto (Bld) [Volum e fraction]Ordered By: Bucky Cheng on 01-07-2023 Hematocrit (Bld) [Volume fraction] 43.8 % 3 8.8-50.0 [facility] Hemoglobin [Mass/volume] in BloodOrdered By: Bucky Cheng on 01-07-2023 Hemoglobin (Bld) [Mass/Vol] 15.1 g/dL 13.0-17. 0 [facility] Laboratory - Chemistry and C hemistry - challengeOrdered By: Bucky Cheng on 01-07-2023 Lipase [Catalytic activity/Vol] 58.0 U/L 22-5 1 [facility] Leukocytes [#/volume] correc billy for nucleated erythrocytes in Blood by Automated counOrdered By: Bucky Cheng on 01-07-2023 WBC corrected for nucl RBC A uto (Bld) [#/Vol] 8.0 10*3/uL 4.1-10.5 [facility] Lipaseon 01-07-2023 Lipase [Catalytic activity/Vol] 58.0 U/L High 22-5 1 [facility] Comment on above: Result Comment: PERF ORMED BY: [facility] [address] [place] [address] PATHOLOGIST BYPRODUCT ENGINEER ANIL GUAMAN M.D. Performed By: #### U RDS, TEJ #### [address] Lymphocytes Auto (Bld) [#/Vo l]Ordered By: Bucky Cheng on 01-07-2023 Lymphocytes (Bld) [#/Vol] 2.0 10*3/uL 1.00-4.8 [facility] Lymphocytes/100 WBC Auto (Bl d)Ordered By: Bucky Cheng on 01-07-2023 Lymphocytes/100 WBC (Bld) 24.6 % . [facility] MCH Auto (RBC) [Entitic mass ]Ordered By: Bucky Cheng on 01-07-2023 MCH (RBC) [Entitic mass] 32.1 pg 27.5-35.2 [facility] MCHC Auto (RBC) [Mass/Vol]Or dered By: Bucky Cheng on 01-07-2023 MCHC (RBC) [Mass/Vol] 34.4 g/dL 32.5-35.6 [facility] MCV Auto (RBC) [Entitic vol] Ordered By: Bucky Cheng on 01-07-2023 MCV (RBC) [Entitic vol] 93.3 fL 83.5-101 F [facility] Monocyte distribution width [Entitic volume] in Blood by AutomatedOrdered By: Bucky Cheng on 01-07-2023 Monocyte distribution width Auto (Bld) [Entitic vol] 21.16 % 0.00-20.00 [facility] Comment on above: For adults in ED, MD W > 20.0 may be associated with a higher risk of sepsis during the first 12 hrs of hospital admission Monocytes Auto (Bld) [#/Vol] Ordered By: Bucky Cheng on 01-07-2023 Monocytes (Bld) [#/Vol] 0.6 10*3/uL 0.0-0.8 [facility] Monocytes/100 WBC Auto (Bld) Ordered By: Bucky Cheng on 01-07-2023 Monocytes/100 WBC (Bld) 8.1 % . [facility] Neutrophils Auto (Bld) [#/Vo l]Ordered By: Bucky Cheng on 01-07-2023 Neutrophils (Bld) [#/Vol] 5.3 10*3/uL 1.8-7.7 [facility] Neutrophils/100 WBC Auto (Bl d)Ordered By: Bucky Cheng on 01-07-2023 Neutrophils/100 WBC (Bld) 66.0 % . [facility] No Panel InformationOrdered By: Bucky Cheng on 01-07-2023 Estimated GFR () > 60 mL/Min [facility] Comment on above: GFR estimated refere nce range: According to KDOQI guidelines, <60 ml/min/1.73m2 is sufficient to diagnose a patient with chronic kidney disease. Pharmacy Creatinine Clearance (Chem 85.04 [facility] Nucleated erythrocytes [Pres ence] in Blood by Automated countOrdered By: Bucky Cheng on 01-07-2023 Nucleated RBC Auto Ql (Bld) 0.0 /100{WBC} 0-0.5 [facility] Platelet mean volume Auto (B ld) [Entitic vol]Ordered By: Bucky Cheng on 01-07-2023 Platelet mean volume (Bld) [Entitic vol] 9.0 fL 6.6-10.1 [facility] Platelets Auto (Bld) [#/Vol] Ordered By: Bucky Cheng on 01-07-2023 Platelets (Bld) [#/Vol] 197 10*3/uL 150-450 [facility] Protein [Mass/volume] in Ser um or PlasmaOrdered By: Bucky Cheng on 01-07-2023 Protein [Mass/Vol] 7.5 g/dL 6.1-7.9 [facility] RBC Auto (Bld) [#/Vol]Ordere d By: Bucky Cheng on 01-07-2023 RBC (Bld) [#/Vol] 4.69 10*6/uL 3.90-5.60 [facility] Serum or plasma alanine humphrey otransferase measurement without P-5'-P (enzymatic activiOrdered By: Bucky Cheng on 01-07-2023 ALT No additional P-5'-P [Ca talytic activity/Vol] 20 U/L 1060 [facility] Serum or plasma albumin/glob ulin mass ratioOrdered By: Bucky Cheng on 01-07-2023 Albumin/Globulin [Mass ratio] 1.0 {ratio} [facility] Serum or plasma alkaline suzi sphatase measurement (enzymatic activity/volume)Ordered By: Bucky Cheng on 01-07-2023 ALP [Catalytic activity/Vol] 75 U/L 32-92 [facility] Serum or plasma anion gap de terminationOrdered By: Bucky Cheng on 01-07-2023 Anion gap [Moles/Vol] 15.6 mmol/L 6.0-15.0 [facility] Serum or plasma aspartate am inotransferase measurement (enzymatic activity/volume)Ordered By: Bucky Cheng on 01-07-2023 AST [Catalytic activity/Vol] 15 U/L 10-42 [facility] Serum or plasma calcium travis urement (mass/volume)Ordered By: Bucky Cheng on 01-07-2023 Calcium [Mass/Vol] 9.4 mg/dL 8.2-10.2 [facility] Serum or plasma chloride hollie surement (moles/volume)Ordered By: Bucky Cheng on 01-07-2023 Chloride [Moles/Vol] 98 mmol/L 95-114 [facility] Serum or plasma glucose travis urement (mass/volume)Ordered By: Bucky Cheng on 01-07-2023 Glucose [Mass/Vol] 351 mg/dL 70-100 [facility] Comment on above: ADA recommended refe rence rangeRandom Glucose Reference Range is dependent on time and content of last meal. Glucose of more than 200 mg/dL in a nonstressed, ambulatory subject supports the diagnosis of Diabetes Mellitus. Serum or plasma potassium me asurement (moles/volume)Ordered By: Bucky Cheng on 01-07-2023 Potassium [Moles/Vol] 4.4 mmol/L 3.5-5.1 [facility] Serum or plasma sodium measu rement (moles/volume)Ordered By: Bucky Cheng on 01-07-2023 Sodium [Moles/Vol] 137 mmol/L 136-146 [facility] Serum or plasma total biliru bin measurement (mass/volume)Ordered By: Bucky Cheng on 01-07-2023 Bilirubin [Mass/Vol] 1.2 mg/dL 0.3-1.2 [facility] Serum or plasma total carbon dioxide measurement (moles/volume)Ordered By: Bucky Cheng on 01-07-2023 CO2 [Moles/Vol] 27.8 mmol/L 22.0-30.0 [facility] Serum or plasma urea nitroge n measurement (mass/volume)Ordered By: Bucky Cheng on 01-07-2023 Urea nitrogen [Mass/Vol] 35 mg/dL 9- [facility] Troponin I High Sensitivityo n 01-07-2023 Troponin I High Sensitivity 11 pg/mL Normal 0-20 [facility] Comment on above: Result Comment: PERF ORMED BY: [place] [address] PATHOLOGIST BYPRODUCT ENGINEER ANIL GUAMAN M.D. Performed By: #### U RDS, ADDONUAPLUS #### [address] Troponin I.cardiac [Mass/vol ume] in Serum or Plasma by High sensitivity methodOrdered By: Bucky Cheng on 01-07-2023 Troponin I.cardiac High sens itivity method [Mass/Vol] 11 pg/mL 0-20 [facility] WBC Auto (Bld) [#/Vol]Ordere d By: Bucky Cheng on 01-07-2023 WBC (Bld) [#/Vol] 8.0 10*3/uL 4.1-10.5 [facility] XR chest 1V portableon 01-[address] [facility] [address] [address] XRay Report Signed 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 MR#: [id number] : 1970 Acct:[id number] Age/Sex: 52 / M ADM Date: 01/07/23 Loc: ER Room: Type: [facility] ER Attending Dr: Copies to: DO Loy Gallo MD Ordering Provider: Bucky Cheng DO Date of Service: 01/07/23 XR/XR chest 1V portable: Abdominal Pain PORTABLE AP ERECT CHEST 2004 hours CLINICAL HISTORY: Upper abdominal chest pain with vomiting. COMPARISON: 01/20/2021 There is shallow inspiration. The heart is within normal limits. There is no vascular congestion. The lungs, as visualized, are clear. There is no effusion or pneumothorax. The osseous structures are intact. The thoracic fusion hardware on the prior is no longer identified. XR/XR chest 1V portable IMPRESSION: NO ACUTE FINDINGS Impression dictated by: Flor Almonte M.D.01/07/2023 8:37 PM Dictation Location: [place] [address] Transcribed By: [facility] 01/07/232036 Dictated By: Flor Almonte MD 01/07/232034 Signed By: 01/07/232036 Normal [facility] CT head/brain wo conon 11-10 CT head/brain wo con [facility] [address] [address] [address] Scan Report Signed 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 MR#: [id number] : 1970 Acct:[id number] Age/Sex: 52 / M ADM Date: 11/10/22 Loc: CT Room: Type: REG CLI Attending Dr: Crow Dean DO Copies to: Crow Dean DO Ordering Provider: Crow Dean DO Date of Service: 11/10/22 CT/CT head/brain wo con: head injury;Weight loss;Nausea vomiting;Traumatic injury o CT head/brain wo con 11/10/2022 8:28 AM SIGNS AND SYMPTOMS: Vomiting, headaches, dizziness TECHNIQUE:Multi-detector CT axial slices of the brain were obtained without IV contrast. CT was performed with one or more of the following dose reduction techniques: Automated exposure control, adjustment of the mA and/or kV according to patient size, or use of iterative reconstruction technique. COMPARISON: 04/18/2020 FINDINGS: There is no shift of the midline structures, acute intracranial bleeding, mass effects, or evidence of acute ischemia. Atherosclerotic changes are present in the V4 segments of the vertebral arteries. Atherosclerotic changes are also noted in the intracranial segments of the internal carotid arteries. The ventricular system is normal in size. The brainstem and the cerebellum are unremarkable. The visualized intraorbital contents, the visualized paranasal sinuses, and the infratemporal soft tissues show no acute abnormality. The osseous structures in the skull base and the calvarium show no abnormality. CT/CT head/brain wo con IMPRESSION: No acute intracranial pathology. Impression dictated by: Tae Seals M.D.11/10/2022 11:43 AM Dictation Location: [place] [address] Transcribed By: [facility] 11/10/22 1143 Dictated By: Tae Seals II, MD 11/10/22 1136 Signed By: 11/10/[address] [facility] US gall bladderon 11-10-2022 US gall bladder [facility] [place] [address] Ultrasound Report Signed 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 MR#: [id number] : 1970 Acct:[id number] Age/Sex: 52 / M ADM Date: 11/10/22 Loc: CT Room: Type: [facility] Attending Dr: Crow Dean DO Ordering Provider: Crow Dean DO Date of Service: 11/10/22 US/US gall bladder: weight loss,;Weight loss;Nausea vomiting Copies to: Crow Dean DO EXAMINATION TYPE: US gall bladder DATE OF EXAM ORDERED: 11/10/2022 8:28 AM HISTORY: Nausea and vomiting, weight loss, abdominal pain COMPARISON: NONE TECHNIQUE: Realtime imaging limited to the right upper quadrant was performed. FINDINGS: The gallbladder appears within normal limits without evidence of cholelithiasis. The gallbladder wall measures 2.4 mm in thickness. The common bile duct measures 6 mm in diameter. No intrahepatic or extrahepatic biliary dilatation is seen. The liver is echogenic in respect to the right renal cortex. This suggests diffuse fatty infiltration. There is hepatopedal flow in the main portal vein. Partial visualization of the right kidney reveals no gross hydronephrosis. Partial visualization of the pancreas reveals no abnormality. ? US/US gall bladder IMPRESSION: No sonographic evidence of acute cholecystitis. Findings suggest diffuse fatty infiltration of the liver. Impression dictated by: Tae Seals M.D.11/10/2022 10:23 AM Dictation Location: [place] [address] Tech: Karen White Transcribed By: WILEY 11/10/22 1023 Dictated By: Tae Seals II, MD 11/10/22 1021 Signed By: 11/10/22 1023 Normal [facility] A1C with Estimated Average [facility] 11-04-2022 Glucose [Mass/Vol] 220 mg/dL Normal [facility] Comment on above: Order Comment: Reaso n for Exam Weight loss;Nausea vomiting;Type 2 diabetes mellitus with Result Comment: PERF ORMED BY: [place] [address] PATHOLOGIST BYPRODUCT ENGINEER ANIL GUAMAN M.D. Performed By: #### U NICOLAS, ADDONUAPLUS #### [address] HbA1c (Bld) [Mass fraction] 9.3 % High 4.3-5.6 [facility] Comment on above: Order Comment: Reaso n for Exam Weight loss;Nausea vomiting;Type 2 diabetes mellitus with Result Comment: Incr eased risk for diabetes: 5.7 - 6.4 diabetes: >6.4 glycemic control for adults with diabetes: <7.0 Performed By: #### U NICOLAS, ADDONUAPLUS #### [facility] [address] [place] [address] [facility] Basophils Auto (Bld) [#/Vol] Ordered By: Crow Dean on 11-04-2022 Basophils (Bld) [#/Vol] 0.1 10*3/uL 0.0-0.2 [facility] Basophils/100 WBC Auto (Bld) Ordered By: Crow Dean on 11-04-2022 Basophils/100 WBC (Bld) 0.8 % . [facility] Body fluid albumin measureme nt (mass/volume)Ordered By: rCow Dean on 11-04-2022 Albumin (Body fld) [Mass/Vol] 3.7 g/dL 3.2-5. 5 [facility] Cholesterol [Mass/volume] in Serum or PlasmaOrdered By: Crow Dean on 11-04-2022 Cholesterol [Mass/Vol] 167 mg/dL 140-200 [facility] Comment on above: Chol less than 200 m g/dl low riskChol 201-239 mg/dl borderline riskChol 240 mg/dl and greater high risk Cholesterol in LDL Calc [Mas s/Vol]Ordered By: Crow Dean on 11-04-2022 Cholesterol in LDL [Mass/Vol] 73 mg/dL 0-100 [facility] Comment on above: LDL ATP III CLASSIFI CATIONLDL less than 100 mg/dL OptimalLDL 100-129 mg/dL Near or above optimalLDL 130-159 mg/dL Borderline highLDL 160-189 mg/dL HighLDL greater than 189 mg/dL Very high Cholesterol in VLDL Calc [Ma ss/Vol]Ordered By: Crow Dean on 11-04-2022 Cholesterol in VLDL [Mass/Vol] 56 mg/dL [facility] Complete Blood Count Auto Di ffon 11-04-2022 Basophils (Bld) [#/Vol] 0.1 10*3/uL Normal 0.0-0.2 [facility] Comment on above: Order Comment: Reaso n for Exam Weight loss;Nausea vomiting;Type 2 diabetes mellitus with Result Comment: PERF ORMED BY: [place] [address] PATHOLOGIST BYPRODUCT ENGINEER ANIL GUAMAN M.D. Performed By: #### U RDS, ADDONUAPLUS #### [facility] [address] [place] [address] [place] Basophils/100 WBC (Bld) 0.8 % Normal . [facility] Comment on above: Order Comment: Reaso n for Exam Weight loss;Nausea vomiting;Type 2 diabetes mellitus with Performed By: #### U RDS, ADDONUAPLUS #### [facility] [address] Eosinophils (Bld) [#/Vol] 0.1 10*3/uL Normal 0.0-0.45 [facility] Comment on above: Order Comment: Reaso n for Exam Weight loss;Nausea vomiting;Type 2 diabetes mellitus with Performed By: #### U RDS, ADDONUAPLUS #### [address] Eosinophils/100 WBC (Bld) 1.2 % Normal . [facility] Comment on above: Order Comment: Reaso n for Exam Weight loss;Nausea vomiting;Type 2 diabetes mellitus with Performed By: #### U RDS, ADDONUAPLUS #### [address] Erythrocyte distribution wid th (RBC) [Ratio] 12.5 % Normal 12.0-14.8 [facility] Comment on above: Order Comment: Reaso n for Exam Weight loss;Nausea vomiting;Type 2 diabetes mellitus with Performed By: #### U RDS, ADDONUAPLUS #### [address] Hematocrit (Bld) [Volume fraction] 39.4 % Normal 38.8-50.0 [facility] Comment on above: Order Comment: Reaso n for Exam Weight loss;Nausea vomiting;Type 2 diabetes mellitus with Performed By: #### U RDS, ADDONUAPLUS #### [address] Hemoglobin (Bld) [Mass/Vol] 13.6 g/dL Normal 13.0-17. 0 [facility] Comment on above: Order Comment: Reaso n for Exam Weight loss;Nausea vomiting;Type 2 diabetes mellitus with Performed By: #### U RDS, ADDONUAPLUS #### [address] Lymphocytes (Bld) [#/Vol] 1.6 10*3/uL Normal 1.00-4.8 [facility] Comment on above: Order Comment: Reaso n for Exam Weight loss;Nausea vomiting;Type 2 diabetes mellitus with Performed By: #### U RDS, ADDONUAPLUS #### [address] Lymphocytes/100 WBC (Bld) 27.3 % Normal . [facility] Comment on above: Order Comment: Reaso n for Exam Weight loss;Nausea vomiting;Type 2 diabetes mellitus with Performed By: #### U RDS, ADDONUAPLUS #### [address] MCH (RBC) [Entitic mass] 32.1 pg Normal 27.5-35.2 [facility] Comment on above: Order Comment: Reaso n for Exam Weight loss;Nausea vomiting;Type 2 diabetes mellitus with Performed By: #### U RDS, ADDONUAPLUS #### [address] MCV (RBC) [Entitic vol] 93.0 fL Normal 83.5-101 [facility] Comment on above: Order Comment: Reaso n for Exam Weight loss;Nausea vomiting;Type 2 diabetes mellitus with Performed By: #### U RDS, ADDONUAPLUS #### [address] Mean Corpuscular HGB Conc 34.5 g/dL Normal 32.5-35.6 [facility] Comment on above: Order Comment: Reaso n for Exam Weight loss;Nausea vomiting;Type 2 diabetes mellitus with Performed By: #### U RDS, ADDONUAPLUS #### [address] Monocytes (Bld) [#/Vol] 0.4 10*3/uL Normal 0.0-0.8 [facility] Comment on above: Order Comment: Reaso n for Exam Weight loss;Nausea vomiting;Type 2 diabetes mellitus with Performed By: #### U RDS, ADDONUAPLUS #### [facility] [address] [place] [address] [place] Monocytes/100 WBC (Bld) 6.2 % Normal . [facility] Comment on above: Order Comment: Reaso n for Exam Weight loss;Nausea vomiting;Type 2 diabetes mellitus with Performed By: #### U RDS, ADDONUAPLUS #### [facility] [address] [place] [address] [place] Neutrophils (Bld) [#/Vol] 3.9 10*3/uL Normal 1.8-7.7 [facility] Comment on above: Order Comment: Reaso n for Exam Weight loss;Nausea vomiting;Type 2 diabetes mellitus with Performed By: #### U RDS, ADDONUAPLUS #### [facility] [address] Neutrophils/100 WBC (Bld) 64.5 % Normal . [facility] Comment on above: Order Comment: Reaso n for Exam Weight loss;Nausea vomiting;Type 2 diabetes mellitus with Performed By: #### U RDS, ADDONUAPLUS #### [facility] [address] NRBC% 0.1 /100{WBC} Normal 0-0.5 [facility] Comment on above: Order Comment: Reaso n for Exam Weight loss;Nausea vomiting;Type 2 diabetes mellitus with Performed By: #### U RDS, ADDONUAPLUS #### [facility] [address] Platelet mean volume (Bld) [Entitic vol] 8.6 fL Normal 6.6-10.1 [facility] Comment on above: Order Comment: Reaso n for Exam Weight loss;Nausea vomiting;Type 2 diabetes mellitus with Performed By: #### U RDS, ADDONUAPLUS #### [facility] [address] [place] [address] [place] Platelets (Bld) [#/Vol] 168 10*3/uL Normal 150-450 [facility] Comment on above: Order Comment: Reaso n for Exam Weight loss;Nausea vomiting;Type 2 diabetes mellitus with Performed By: #### U RDS, ADDONUAPLUS #### [facility] [address] RBC (Bld) [#/Vol] 4.24 10*6/uL Normal 3.90-5.60 [facility] Comment on above: Order Comment: Reaso n for Exam Weight loss;Nausea vomiting;Type 2 diabetes mellitus with Performed By: #### U RDS, ADDONUAPLUS #### [facility] [address] WBC (Bld) [#/Vol] 6.0 10*3/uL Normal 4.1-10.5 [facility] Comment on above: Order Comment: Reaso n for Exam Weight loss;Nausea vomiting;Type 2 diabetes mellitus with Performed By: #### U RDS, ADDONUAPLUS #### [address] Comprehensive Metabolic Pane rudolph 11-04-2022 Albumin [Mass/Vol] 3.7 g/dL Normal 3.2-5.5 [facility] Comment on above: Order Comment: Reaso n for Exam Weight loss;Nausea vomiting;Type 2 diabetes mellitus with PT IS FASTING Performed By: #### C MP, TSH3, LIPID #### [address] Albumin/Globulin [Mass ratio] 1.3 {ratio} Normal [facility] Comment on above: Order Comment: Reaso n for Exam Weight loss;Nausea vomiting;Type 2 diabetes mellitus with PT IS FASTING Performed By: #### C MP, TSH3, LIPID #### [facility] [address] [place] [address] [place] ALP [Catalytic activity/Vol] 58 U/L Normal 32-92 [facility] Comment on above: Order Comment: Reaso n for Exam Weight loss;Nausea vomiting;Type 2 diabetes mellitus with PT IS FASTING Performed By: #### C MP, TSH3, LIPID #### [facility] [address] ALT [Catalytic activity/Vol] 18 U/L Normal 10-60 [facility] Comment on above: Order Comment: Reaso n for Exam Weight loss;Nausea vomiting;Type 2 diabetes mellitus with PT IS FASTING Performed By: #### C MP, TSH3, LIPID #### [facility] [address] Anion gap [Moles/Vol] 14.3 mmol/L Normal 6.0-15.0 [facility] Comment on above: Order Comment: Reaso n for Exam Weight loss;Nausea vomiting;Type 2 diabetes mellitus with PT IS FASTING Performed By: #### C MP, TSH3, LIPID #### [facility] [address] AST [Catalytic activity/Vol] 12 U/L Normal 10-42 [facility] Comment on above: Order Comment: Reaso n for Exam Weight loss;Nausea vomiting;Type 2 diabetes mellitus with PT IS FASTING Performed By: #### C MP, TSH3, LIPID #### [facility] [address] Bilirubin [Mass/Vol] 1.0 mg/dL Normal 0.3-1.2 [facility] Comment on above: Order Comment: Reaso n for Exam Weight loss;Nausea vomiting;Type 2 diabetes mellitus with PT IS FASTING Performed By: #### C MP, TSH3, LIPID #### [facility] [address] Calcium [Mass/Vol] 9.2 mg/dL Normal 8.2-10.2 [facility] Comment on above: Order Comment: Reaso n for Exam Weight loss;Nausea vomiting;Type 2 diabetes mellitus with PT IS FASTING Performed By: #### C MP, TSH3, LIPID #### [facility] [address] [place] [address] [place] Chloride [Moles/Vol] 96 mmol/L Normal 95-114 [facility] Comment on above: Order Comment: Reaso n for Exam Weight loss;Nausea vomiting;Type 2 diabetes mellitus with PT IS FASTING Performed By: #### C MP, TSH3, LIPID #### [facility] [address] [place] [address] [place] CO2 [Moles/Vol] 27.1 mmol/L Normal 22.0-30.0 [facility] Comment on above: Order Comment: Reaso n for Exam Weight loss;Nausea vomiting;Type 2 diabetes mellitus with PT IS FASTING Performed By: #### C MP, TSH3, LIPID #### [facility] [address] Creatinine [Mass/Vol] 0.93 mg/dL Normal 0.64-1.27 [facility] Comment on above: Order Comment: Reaso n for Exam Weight loss;Nausea vomiting;Type 2 diabetes mellitus with PT IS FASTING Performed By: #### C MP, TSH3, LIPID #### [facility] [address] Estimated GFR ( [place] > 60 [facility] Comment on above: Order Comment: Reaso n for Exam Weight loss;Nausea vomiting;Type 2 diabetes mellitus with PT IS FASTING Result Comment: GFR estimated reference range: According to KDOQI guidelines, <60 ml/min/1.73m2 is sufficient to diagnose a patient with chronic kidney disease. Performed By: #### C MP, TSH3, LIPID #### [facility] [address] Estimated GFR (Non- Am > 60 [facility] Comment on above: Order Comment: Reaso n for Exam Weight loss;Nausea vomiting;Type 2 diabetes mellitus with PT IS FASTING Performed By: #### C MP, TSH3, LIPID #### [facility] [address] Globulin (S) [Mass/Vol] 2.9 g/dL Normal [facility] Comment on above: Order Comment: Reaso n for Exam Weight loss;Nausea vomiting;Type 2 diabetes mellitus with PT IS FASTING Performed By: #### C MP, TSH3, LIPID #### [facility] [address] Glucose [Mass/Vol] 242 mg/dL High 70-100 [facility] Comment on above: Order Comment: Reaso n for Exam Weight loss;Nausea vomiting;Type 2 diabetes mellitus with PT IS FASTING Result Comment: [place] Glucose Reference Range is dependent on time and content of last meal. Glucose of more than 200 mg/dL in a nonstressed, ambulatory subject supports the diagnosis of Diabetes Mellitus. ADA recommended reference range Performed By: #### C MP, TSH3, LIPID #### [facility] [address] [place] [address] [place] Potassium [Moles/Vol] 4.4 mmol/L Normal 3.5-5.1 [facility] Comment on above: Order Comment: Reaso n for Exam Weight loss;Nausea vomiting;Type 2 diabetes mellitus with PT IS FASTING Performed By: #### C MP, TSH3, LIPID #### [facility] [address] [place] [address] [place] Protein [Mass/Vol] 6.6 g/dL Normal 6.1-7.9 [facility] Comment on above: Order Comment: Reaso n for Exam Weight loss;Nausea vomiting;Type 2 diabetes mellitus with PT IS FASTING Performed By: #### C MP, TSH3, LIPID #### [facility] [address] [place] [address] [place] Sodium [Moles/Vol] 133 mmol/L Low 136-146 [facility] Comment on above: Order Comment: Reaso n for Exam Weight loss;Nausea vomiting;Type 2 diabetes mellitus with PT IS FASTING Performed By: #### C MP, TSH3, LIPID #### [facility] [address] [place] [id number] [place] Urea nitrogen [Mass/Vol] 14 mg/dL Normal 9-23 [facility] Comment on above: Order Comment: Reaso n for Exam Weight loss;Nausea vomiting;Type 2 diabetes mellitus with PT IS FASTING Performed By: #### C MP, TSH3, LIPID #### [facility] [address] [place] [id number] [place] Creatinine [Mass/volume] in UrineOrdered By: Crow Dean on 11-04-2022 Creatinine (U) [Mass/Vol] 276.3 mg/dL [facility] Comment on above: No reference range e stablished Creatinine and Glomerular fi ltration rate.predicted panel (S/P/Bld)Ordered By: Crow Dean on 11-04-2022 Creatinine [Mass/Vol] 0.93 mg/dL 0.64-1.27 [facility] Eosinophils Auto (Bld) [#/Vo l]Ordered By: Crow Dean on 11-04-2022 Eosinophils (Bld) [#/Vol] 0.1 10*3/uL 0.0-0.45 [facility] Eosinophils/100 WBC Auto (Bl d)Ordered By: Crow Dean on 11-04-2022 Eosinophils/100 WBC (Bld) 1.2 % . [facility] Erythrocyte distribution wid th Auto (RBC) [Ratio]Ordered By: Crow Dean on 11-04-2022 Erythrocyte distribution wid th (RBC) [Ratio] 12.5 % 12.0-14.8 [facility] Estimated glomerular filtrat ion rate (GFR) non- AmericanOrdered By: Crow Dean on 11-04-2022 GFR/1.73 sq M.predicted michael g non-blacks MDRD (S/P/Bld) [Vol rate/Area] > 60 mL/Min [facility] Globulin Calc (S) [Mass/Vol] Ordered By: Crow Dean on 11-04-2022 Globulin (S) [Mass/Vol] 2.9 g/dL [facility] Glucose mean value [Mass/vol ume] in Blood Estimated from glycated hemoglobinOrdered By: Crow Dean on 11-04-2022 Average glucose Estimated fr om glycated hemoglobin (Bld) [Mass/Vol] 220 mg/dL [facility] Hematocrit Auto (Bld) [Volum e fraction]Ordered By: Crow Dean on 11-04-2022 Hematocrit (Bld) [Volume fraction] 39.4 % 3 8.8-50.0 [facility] Hemoglobin A1c percentageOrd ered By: Crow Dean on 11-04-2022 HbA1c (Bld) [Mass fraction] 9.3 % 4.3-5.6 [facility] Comment on above: Increased risk for d iabetes: 5.7 - 6.4diabetes: >6.4glycemic control for adults with diabetes: <7.0 Hemoglobin [Mass/volume] in BloodOrdered By: Crow Dean on 11-04-2022 Hemoglobin (Bld) [Mass/Vol] 13.6 g/dL 13.0-17. 0 [facility] Leukocytes [#/volume] correc billy for nucleated erythrocytes in Blood by Automated counOrdered By: Crow Dean on 11-04-2022 WBC corrected for nucl RBC A uto (Bld) [#/Vol] 6.0 10*3/uL 4.1-10.5 [facility] Lipid Panelon 11-04-2022 Cholesterol [Mass/Vol] 167 mg/dL Normal 140-200 [facility] Comment on above: Order Comment: Reaso n for Exam Weight loss;Nausea vomiting;Type 2 diabetes mellitus with PT IS FASTING Result Comment: Chol less than 200 mg/dl low risk Chol 201-239 mg/dl borderline risk Chol 240 mg/dl and greater high risk Performed By: #### C MP, TSH3, LIPID #### [facility] [address] [place] [id number] [place] Cholesterol in HDL [Mass/Vol] 37 mg/dL Normal 29-71 [facility] Comment on above: Order Comment: Reaso n for Exam Weight loss;Nausea vomiting;Type 2 diabetes mellitus with PT IS FASTING Result Comment: HDL CHOL ATP-III CLASSIFICATION Cardiovascular Risk HDL > or equal to 60 mg/dL LOW HDL < 40 mg/dL HIGH Performed By: #### C MP, TSH3, LIPID #### [facility] [address] [place] [address] [place] Cholesterol.total/Cholestero l in HDL [Mass ratio] 4.5 {ratio} Normal <5.0 [facility] Comment on above: Order Comment: Reaso n for Exam Weight loss;Nausea vomiting;Type 2 diabetes mellitus with PT IS FASTING Performed By: #### C MP, TSH3, LIPID #### [facility] [address] [place] [address] [place] LDL Cholesterol,Calculated 73 mg/dL Normal 0-100 [facility] Comment on above: Order Comment: Reaso n for Exam Weight loss;Nausea vomiting;Type 2 diabetes mellitus with PT IS FASTING Result Comment: LDL ATP III CLASSIFICATION LDL less than 100 mg/dL Optimal LDL 100-129 mg/dL Near or above optimal LDL 130-159 mg/dL Borderline high LDL 160-189 mg/dL High LDL greater than 189 mg/dL Very high Performed By: #### C MP, TSH3, LIPID #### [facility] [address] Triglyceride w/Reflex 284 mg/dL High 35-149 [facility] Comment on above: Order Comment: Reaso n for Exam Weight loss;Nausea vomiting;Type 2 diabetes mellitus with PT IS FASTING Result Comment: TRIG ATP III CLASSIFICATION TRIG less than 150 mg/dL Normal TRIG 150-199 mg/dL Borderline high TRIG 200-500 mg/dL High TRIG greater than 500 mg/dL Very high Standard traceable to the Center for Disease Conrtrol and Prevention (CDC) test method. Performed By: #### C MP, TSH3, LIPID #### [facility] [address] VLDL CHOLESTEROL 56 mg/dL Normal [facility] Comment on above: Order Comment: Reaso n for Exam Weight loss;Nausea vomiting;Type 2 diabetes mellitus with PT IS FASTING Performed By: #### C MP, TSH3, LIPID #### [facility] [address] Lymphocytes Auto (Bld) [#/Vo l]Ordered By: Crow Dean on 11-04-2022 Lymphocytes (Bld) [#/Vol] 1.6 10*3/uL 1.00-4.8 [facility] Lymphocytes/100 WBC Auto (Bl d)Ordered By: Crow Dean on 11-04-2022 Lymphocytes/100 WBC (Bld) 27.3 % . [facility] MCH Auto (RBC) [Entitic mass ]Ordered By: Crow Dean on 11-04-2022 MCH (RBC) [Entitic mass] 32.1 pg 27.5-35.2 [facility] MCHC Auto (RBC) [Mass/Vol]Or dered By: Crow Dean on 11-04-2022 MCHC (RBC) [Mass/Vol] 34.5 g/dL 32.5-35.6 [facility] MCV Auto (RBC) [Entitic vol] Ordered By: Crow Dean on 11-04-2022 MCV (RBC) [Entitic vol] 93.0 fL 83.5-101 [facility] MicroAlb Creat Ratio,Uon Albumin DL <= 20 mg/L (U) [Mass/Vol] 1.9 mg/dL High 0.0-1.8 [facility] Comment on above: Order Comment: Reaso n for Exam Weight loss;Nausea vomiting;Type 2 diabetes mellitus with Performed By: #### V BG #### Point of Care testing , Creatinine, Urine (Random) 276.3 mg/dL Normal [facility] Comment on above: Order Comment: Reaso n for Exam Weight loss;Nausea vomiting;Type 2 diabetes mellitus with Result Comment: No r eference range established Performed By: #### V BG #### Point of Care testing , Microalbumin/Creatinine Ratio 6.0 mg/g Normal 0.0-30 .0 [facility] Comment on above: Order Comment: Reaso n for Exam Weight loss;Nausea vomiting;Type 2 diabetes mellitus with Result Comment: 30-3 00 mg/g indicates an increased risk for diabetic nephropathy. Greater than 300 mg/g is consistent with clinical nephropathy. (Am. J. Kidney Disease 1995, 25:107) PERFORMED BY: [facility] [address] [place] [address] PATHOLOGIST BYPRODUCT ENGINEER ANIL GUAMAN M.D. Performed By: #### V BG #### Point of Care testing , Monocytes Auto (Bld) [#/Vol] Ordered By: Crow Dean on 11-04-2022 Monocytes (Bld) [#/Vol] 0.4 10*3/uL 0.0-0.8 [facility] Monocytes/100 WBC Auto (Bld) Ordered By: Crow Dean on 11-04-2022 Monocytes/100 WBC (Bld) 6.2 % . [facility] Neutrophils Auto (Bld) [#/Vo l]Ordered By: Crow Dean on 11-04-2022 Neutrophils (Bld) [#/Vol] 3.9 10*3/uL 1.8-7.7 [facility] Neutrophils/100 WBC Auto (Bl d)Ordered By: Crow Dean on 11-04-2022 Neutrophils/100 WBC (Bld) 64.5 % . [facility] No Panel InformationOrdered By: Crow Dean on 11-04-2022 Estimated GFR () > 60 mL/Min [facility] Comment on above: GFR estimated refere nce range: According to KDOQI guidelines, <60 ml/min/1.73m2 is sufficient to diagnose a patient with chronic kidney disease. Pharmacy Creatinine Clearance (Chem N/A [facility] Nucleated erythrocytes [Pres ence] in Blood by Automated countOrdered By: Crow Dean on 11-04-2022 Nucleated RBC Auto Ql (Bld) 0.1 /100{WBC} 0-0.5 [facility] Platelet mean volume Auto (B ld) [Entitic vol]Ordered By: Crow Dean on 11-04-2022 Platelet mean volume (Bld) [Entitic vol] 8.6 fL 6.6-10.1 [facility] Platelets Auto (Bld) [#/Vol] Ordered By: Crow Dean on 11-04-2022 Platelets (Bld) [#/Vol] 168 10*3/uL 150-450 [facility] Protein [Mass/volume] in Ser um or PlasmaOrdered By: Crow Dean on 11-04-2022 Protein [Mass/Vol] 6.6 g/dL 6.1-7.9 [facility] RBC Auto (Bld) [#/Vol]Ordere d By: Crow Dean on 11-04-2022 RBC (Bld) [#/Vol] 4.24 10*6/uL 3.90-5.60 [facility] Serum or plasma alanine humphrey otransferase measurement without P-5'-P (enzymatic activiOrdered By: Crow Dean on 11-04-2022 ALT No additional P-5'-P [Ca talytic activity/Vol] 18 U/L 10-60 [facility] Serum or plasma albumin/glob ulin mass ratioOrdered By: Crow Dean on 11-04-2022 Albumin/Globulin [Mass ratio] 1.3 {ratio} [facility] Serum or plasma alkaline suzi sphatase measurement (enzymatic activity/volume)Ordered By: Crow Dean on 11-04-2022 ALP [Catalytic activity/Vol] 58 U/L 32-92 [facility] Serum or plasma anion gap de terminationOrdered By: Crow Dean on 11-04-2022 Anion gap [Moles/Vol] 14.3 mmol/L 6.0-15.0 [facility] Serum or plasma aspartate am inotransferase measurement (enzymatic activity/volume)Ordered By: Crow Dean on 11-04-2022 AST [Catalytic activity/Vol] 12 U/L 10-42 [facility] Serum or plasma calcium travis urement (mass/volume)Ordered By: Crow Dean on 11-04-2022 Calcium [Mass/Vol] 9.2 mg/dL 8.2-10.2 [facility] Serum or plasma chloride hollie surement (moles/volume)Ordered By: Crow Dean on 11-04-2022 Chloride [Moles/Vol] 96 mmol/L 95-114 [facility] Serum or plasma glucose travis urement (mass/volume)Ordered By: Crow Dean on 11-04-2022 Glucose [Mass/Vol] 242 mg/dL 70-100 [facility] Comment on above: ADA recommended refe rence rangeRandom Glucose Reference Range is dependent on time and content of last meal. Glucose of more than 200 mg/dL in a nonstressed, ambulatory subject supports the diagnosis of Diabetes Mellitus. Serum or plasma high density lipoprotein (HDL) cholesterol measurementOrdered By: Crow Dean on 11-04-2022 Cholesterol in HDL [Mass/Vol] 37 mg/dL 29-71 [facility] Comment on above: HDL CHOL ATP-III CLA SSIFICATION Cardiovascular RiskHDL > or equal to 60 mg/dL LOWHDL < 40 mg/dL HIGH Serum or plasma potassium me asurement (moles/volume)Ordered By: Crow Dean on 11-04-2022 Potassium [Moles/Vol] 4.4 mmol/L 3.5-5.1 [facility] Serum or plasma sodium measu rement (moles/volume)Ordered By: Crow Dean on 11-04-2022 Sodium [Moles/Vol] 133 mmol/L 136-146 [facility] Serum or plasma total biliru bin measurement (mass/volume)Ordered By: Crow Dean on 11-04-2022 Bilirubin [Mass/Vol] 1.0 mg/dL 0.3-1.2 [facility] Serum or plasma total carbon dioxide measurement (moles/volume)Ordered By: Crow Dean on 11-04-2022 CO2 [Moles/Vol] 27.1 mmol/L 22.0-30.0 [facility] Serum or plasma total choles terol/high density lipoprotein (HDL) cholesterol mass ratOrdered By: Crow Dean on 11-04-2022 Cholesterol.total/Cholestero l in HDL [Mass ratio] 4.5 {ratio} <5.0 [facility] Serum or plasma urea nitroge n measurement (mass/volume)Ordered By: Crow Dean on 11-04-2022 Urea nitrogen [Mass/Vol] 14 mg/dL 08-20 [facility] TSH DL <= 0.005 mIU/L QnOrde red By: Crow Dean on 11-04-2022 TSH Qn 1.62 m[IU]/L 0.45-5.33 [facility] Thyroid Stimulating Hormoneo n 11-04-2022 TSH Qn 1.62 m[IU]/L Normal 0.45-5.33 [facility] Comment on above: Order Comment: Reaso n for Exam Weight loss;Nausea vomiting;Type 2 diabetes mellitus with PT IS FASTING Result Comment: PERF ORMED BY: [place] [address] PATHOLOGIST BYPRODUCT ENGINEER ANIL GUAMAN M.D. Performed By: #### C MP, TSH3, LIPID #### [facility] [address] Triglyceride [Mass/volume] i n Serum or PlasmaOrdered By: Crow Dean on 11-04-2022 Triglyceride [Mass/Vol] 284 mg/dL 35-149 [facility] Comment on above: TRIG ATP III CLASSIF ICATIONTRIG less than 150 mg/dL NormalTRIG 150-199 mg/dL Borderline highTRIG 200-500 mg/dL High TRIG greater than 500 mg/dL Very highStandard traceable to the Center for Disease Conrtrol and Prevention (CDC) test method. Urine microalbumin measureme nt with detection limit of 20 mg/L or less (mass/volume)Ordered By: Crow Dean on 11-04-2022 Albumin DL <= 20 mg/L (U) [Mass/Vol] 1.9 mg/dL 0.0-1.8 [facility] Urine microalbumin/creatinin e mass ratioOrdered By: Crow Dean on 11-04-2022 Albumin/Creatinine DL <= 20 mg/L (U) [Mass ratio] 6.0 mg/g 0.0-30.0 [facility] Comment on above: 30-300 mg/g indicate s an increased risk for diabetic nephropathy. Greater than 300 mg/g is consistent with clinical nephropathy. (Am. J. Kidney Disease 1995, 25:107) WBC Auto (Bld) [#/Vol]Ordere d By: Crow Dean on 11-04-2022 WBC (Bld) [#/Vol] 6.0 10*3/uL 4.1-10.5 [facility] Albumin [Mass/volume] in Ser um or PlasmaOrdered By: Ladi Mina on 10-26-2022 Albumin [Mass/Vol] 3.9 g/dL 3.2-5.5 [facility] Amphetamine Screen Ql (U)Ord ered By: Ladi Villatoroimmargie on 10-26-2022 Amphetamines Ql (U) Negative Negative [facility] Automated erythrocytes count in urine sediment (number/area)Ordered By: Ladi Mina on 10-26-2022 RBC Auto (Urine sed) [#/Area] 0-1 [HPF] 0-4 [facility] Automated leukocytes count i n urine sediment (number/area)Ordered By: Ladi Mina on 10-26-2022 WBC Auto (Urine sed) [#/Area] 1-2 [HPF] 0-4 [facility] Barbiturates [Presence] in U rineOrdered By: Ladi Bullimore on 10-26-2022 Barbiturates Ql (U) Negative Negative [facility] Basic Metabolic Panelon 09-29 Anion gap [Moles/Vol] 14.8 mmol/L Normal 6.0-15.0 [facility] Comment on above: Performed By: #### U NICOLAS ADDONUAPLUS #### [facility] [address] Calcium [Mass/Vol] 9.0 mg/dL Normal 8.2-10.2 [facility] Comment on above: Performed By: #### U NICOLAS ADDONUAPLUS #### [facility] [address] Chloride [Moles/Vol] 98 mmol/L Normal 95-114 [facility] Comment on above: Performed By: #### U NICOLAS ADDONUAPLUS #### [address] CO2 [Moles/Vol] 29.2 mmol/L Normal 22.0-30.0 [facility] Comment on above: Performed By: #### U NICOLAS ADDONUAPLUS #### [address] Creatinine [Mass/Vol] 1.19 mg/dL Normal 0.64-1.27 [facility] Comment on above: Performed By: #### U NICOLAS ADDONUAPLUS #### [place] [address] [place] Creatinine Clr Calc Pharmacy 76.[address] [facility] Comment on above: Performed By: #### U NICOLAS ADDONUAPLUS #### [facility] [address] [place] [address] Estimated GFR ( [place] > 60 [facility] Comment on above: Result Comment: GFR estimated reference range: According to KDOQI guidelines, <60 ml/min/1.73m2 is sufficient to diagnose a patient with chronic kidney disease. Performed By: #### U NICOLAS ADDONUAPLUS #### [address] Estimated GFR (Non- Am > 60 [facility] Comment on above: Performed By: #### U NICOLAS ADDONUAPLUS #### [address] [place] [address] [place] Glucose [Mass/Vol] 284 mg/dL High 70-100 [facility] Comment on above: Result Comment: [place] Glucose Reference Range is dependent on time and content of last meal. Glucose of more than 200 mg/dL in a nonstressed, ambulatory subject supports the diagnosis of Diabetes Mellitus. ADA recommended reference range Performed By: #### U RDS, ADDONUAPLUS #### [facility] [address] Potassium [Moles/Vol] 4.0 mmol/L Normal 3.5-5.1 [facility] Comment on above: Performed By: #### U NICOLAS, ADDONUAPLUS #### [facility] [address] Sodium [Moles/Vol] 138 mmol/L Normal 136-146 [facility] Comment on above: Performed By: #### U NICOLAS, ADDONUAPLUS #### [facility] [address] Urea nitrogen [Mass/Vol] 19 mg/dL Normal 9-23 [facility] Comment on above: Performed By: #### U RDS, ADDONUAPLUS #### [facility] [address] Basophils Auto (Bld) [#/Vol] Ordered By: Ladi Villatoroimmargie on 10-26-2022 Basophils (Bld) [#/Vol] 0.1 10*3/uL 0.0-0.2 [facility] Basophils/100 WBC Auto (Bld) Ordered By: Ladi Bullimore on 10-26-2022 Basophils/100 WBC (Bld) 0.9 % . [facility] Benzodiazepines [Presence] i n UrineOrdered By: Ladi Villatoroimmargie on 10-26-2022 Benzodiazepines Ql (U) Negative Negative [facility] Bilirubin Test strip Ql (U)O rdered By: Ladi Villatoroimore on 10-26-2022 Bilirubin Ql (U) Negative Negative [facility] COVID CepheidOrdered By: Jolene Villatoroimmargie on 10-26-2022 SARS-CoV-2 (COVID-19) Ab IA Ql Negative Negat dilip [facility] Comment on above: This is a duplicate Cepheid Xpert Xpress CoV-2/Flu/RSV Plus RNA by RT-PCR result to be used for statistical tracking purpose only. SARS-CoV-2 (COVID-19) RNA NA A+probe Ql (Unsp spec) [facility] SARS-CoV-2 (COVID-19) RNA NA A+probe Ql (Unsp spec) [facility] COVID-19 / Flu A/B / RSV PCR on 10-26-2022 SARS-CoV-2 (COVID-19) RNA SILVIA+probe Ql (Unsp spec) COVID-19 Cepheid Result Negative for SARS-CoV-2 RNA by RT-PCR Flu A Cepheid Result Negative for Flu A RNA by RT-PCR Flu B Cepheid Result Negative for Flu B RNA by RT-PCR RSV Cepheid Result Negative for RSV RNA by RT-PCR COVID19 Blank Space Reference: Negative COVID19 Blank Space Cepheid Disclaimer The Cepheid Xpert Xpress CoV-2/Flu/RSV Plus has Cepheid Disclaimer not been FDA cleared or approved; this test has Cepheid Disclaimer been authorized by FDA under an EUA for use by Cepheid Disclaimer authorized laboratories; this test has been Cepheid Disclaimer authorized only for the simultaneous qualitative Cepheid Disclaimer detection and differentiation of nucleic acids from Cepheid Disclaimer SARS-CoV-2, influenza A, influenza B, and Cepheid Disclaimer respiratory syncytial virus (RSV), and not for any Cepheid Disclaimer other viruses or pathogens; and this test is only Cepheid Disclaimer authorized for the duration of the declaration that Cepheid Disclaimer circumstances exist justifying the authorization of Cepheid Disclaimer emergency use of in vitro diagnostic tests for Cepheid Disclaimer detection and/or diagnosis of COVID-19 under Cepheid Disclaimer Section 564(b)(1) of the Act, 21 U.S.C. 360bbb- Cepheid Disclaimer 3(b)(1), unless the authorization is terminated or Cepheid Disclaimer revoked sooner. PERFORMED BY: [place] [address] PATHOLOGIST BYPRODUCT ENGINEER ANIL GUAMAN M.D. Normal [facility] Comment on above: Performed By: #### V BG #### Point of Care testing , CT abdomen pelvis wo conon 1 12-26-2021 CT abdomen pelvis wo con [facility] [place] [address] [place], [place] [id number] CT Scan Report Signed 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 MR#: [id number] : 1970 Acct:[id number] Age/Sex: 52 / M ADM Date: 10/26/22 Loc: ER Room: Type: [facility] ER Attending Dr: Copies to: NOMI Lopez Ordering Provider: NOMI Lopez Date of Service: 10/26/22 CT/CT abdomen pelvis wo con: abdominal pain CT ABDOMEN AND PELVIS WITHOUT CONTRAST COMPARISON: 04/18/2020 CLINICAL DATA: Abdominal pain at the left lower quadrant. Nausea and vomiting. Spiral images were obtained through the abdomen pelvis without contrast. This CT exam was performed using one or more following dose reduction techniques: Automated exposure control, adjustment of the mA and/or kV according to patient size, or use of iterative reconstruction technique. Limited cuts through the lung bases show no contributory pulmonary findings. There are old right rib fractures. Evaluation of the intra-abdominal organs is slightly limited by the absence of contrast. No intrahepatic masses are identified. No calcified gallstones are seen. The spleen, pancreas and adrenal glands show no acute findings. No renal calculi or hydronephrosis are noted. There is no ureteral dilatation or stones. The abdominal aorta is normal caliber and there is minor plaque. There are tiny lymph nodes at the retroperitoneum and mesentery . No ascites is seen. The small bowel loops are not distended. There is moderate fluid within the stomach. There is mild stool throughout the colon. There is a compression deformity involving the superior endplate of T11 that was not seen on plain films from May 2020. Images through the pelvis show normal caliber small bowel loops. There is a normal retrocecal appendix. There is mild stool at the distal colon, greatest at the rectum. There is no prominent diverticular disease. The prostate is borderline prominent. The urinary bladder shows no abnormalities for the degree of distention. There is no ascites. CT/CT abdomen pelvis wo con IMPRESSION: NO ACUTE INTRA-ABDOMINAL OR PELVIC FINDINGS. Impression dictated by: Flor Almonte M.D.10/26/2022 10:05 AM Dictation Location: [place] [address] Transcribed By: [facility] 10/26/22 1005 Dictated By: Flor Almonte MD 10/26/22 0952 Signed By: 10/26/22 1005 Normal [facility] Cannabinoids [Presence] in U rine by Screen methodOrdered By: Ladi Mina on 10-26-2022 Cannabinoids Screen Ql (U) Negative Negative [facility] Comment on above: These are unconfirme d results and should not be used for legal purposes. Drug Cut-Off Concentration: AMPH 1000 ng/mL CHRISTINA 200 ng/mL CHRISTIANO 200 ng/mL COCM 300 ng/mL OP 300 ng/mL PCP 25 ng/mL THC 20 ng/mL Cepheid COVID PCR Negativeon 10-26-2022 SARS-CoV-2 (COVID-19) RNA SILVIA+probe Ql (Unsp spec) Negative Normal Negative [facility] Comment on above: Result Comment: This is a duplicate Cepheid Xpert Xpress CoV- 2/Flu/RSV Plus RNA by RT-PCR result to be used for statistical tracking purpose only. PERFORMED BY: [facility] [address] [place] [address] PATHOLOGIST BYPRODUCT ENGINEER ANIL GUAMAN M.D. Performed By: #### V BG #### Point of Care testing , Color Auto (U)Ordered By: Kathryn Mina on 10-26-2022 Color (U) Yellow Yellow [facility] Complete Blood Count Auto Di ffon 10-26-2022 Basophils (Bld) [#/Vol] 0.1 10*3/uL Normal 0.0-0.2 [facility] Comment on above: Result Comment: PERF ORMED BY: [place] [address] PATHOLOGIST BYPRODUCT ENGINEER ANIL GUAMAN M.D. Performed By: #### U RDS, ADDONUAPLUS #### [facility] [address] [place] [address] [place] Basophils/100 WBC (Bld) 0.9 % Normal . [facility] Comment on above: Performed By: #### U RDS, ADDONUAPLUS #### [place] [address] [place] Eosinophils (Bld) [#/Vol] 0.1 10*3/uL Normal 0.0-0.45 [facility] Comment on above: Performed By: #### U RDS, ADDONUAPLUS #### [place] [address] [place] Eosinophils/100 WBC (Bld) 1.0 % Normal . [facility] Comment on above: Performed By: #### U RDS, ADDONUAPLUS #### [place] [address] [place] Erythrocyte distribution wid th (RBC) [Ratio] 12.2 % Normal 12.0-14.8 [facility] Comment on above: Performed By: #### U RDS, ADDONUAPLUS #### [facility] [address] [place] [address] [place] Hematocrit (Bld) [Volume fraction] 44.3 % Normal 38.8-50.0 [facility] Comment on above: Performed By: #### U RDS, ADDONUAPLUS #### [facility] [facility] [address] [place] [address] [place] Hemoglobin (Bld) [Mass/Vol] 15.1 g/dL Normal 13.0-17. 0 [facility] Comment on above: Performed By: #### U RDS, ADDONUAPLUS #### [facility] [address] [place] [address] [place] Lymphocytes (Bld) [#/Vol] 1.8 10*3/uL Normal 1.00-4.8 [facility] Comment on above: Performed By: #### U RDS, ADDONUAPLUS #### [facility] [address] [place] [address] Lymphocytes/100 WBC (Bld) 27.0 % Normal . [facility] Comment on above: Performed By: #### U RDS, ADDONUAPLUS #### [address] MCH (RBC) [Entitic mass] 32.0 pg Normal 27.5-35.2 [facility] Comment on above: Performed By: #### U RDS, ADDONUAPLUS #### [address] MCV (RBC) [Entitic vol] 93.9 fL Normal 83.5-101 [facility] Comment on above: Performed By: #### U RDS, ADDONUAPLUS #### [address] Mean Corpuscular HGB Conc 34.1 g/dL Normal 32.5-35.6 [facility] Comment on above: Performed By: #### U RDS, ADDONUAPLUS #### [place] [address] [place] Monocytes (Bld) [#/Vol] 0.4 10*3/uL Normal 0.0-0.8 [facility] Comment on above: Performed By: #### U RDS, ADDONUAPLUS #### [place] [address] [place] Monocytes/100 WBC (Bld) 6.1 % Normal . [facility] Comment on above: Performed By: #### U RDS, ADDONUAPLUS #### [facility] [address] [place] [address] [place] Neutrophils (Bld) [#/Vol] 4.3 10*3/uL Normal 1.8-7.7 [facility] Comment on above: Performed By: #### U RDS, ADDONUAPLUS #### [facility] [address] Neutrophils/100 WBC (Bld) 65.0 % Normal . [facility] Comment on above: Performed By: #### U RDS, ADDONUAPLUS #### [facility] [address] Nucleated RBC/100 WBC (Bld) [Ratio] 0.0 % Normal 0-0.5 [facility] Comment on above: Performed By: #### U RDS, ADDONUAPLUS #### [facility] [address] Platelet mean volume (Bld) [Entitic vol] 8.6 fL Normal 6.6-10.1 [facility] Comment on above: Performed By: #### U RDS, ADDONUAPLUS #### [address] Platelets (Bld) [#/Vol] 203 10*3/uL Normal 150-450 [facility] Comment on above: Performed By: #### U RDS, ADDONUAPLUS #### [address] RBC (Bld) [#/Vol] 4.72 10*6/uL Normal 3.90-5.60 [facility] Comment on above: Performed By: #### U RDS, ADDONUAPLUS #### [address] WBC (Bld) [#/Vol] 6.5 10*3/uL Normal 4.5-11.0 [facility] Comment on above: Performed By: #### U RDS, ADDONUAPLUS #### [address] Creatinine and Glomerular fi ltration rate.predicted panel (S/P/Bld)Ordered By: Ladi Mina on 10-26-2022 Creatinine [Mass/Vol] 1.19 mg/dL 0.64-1.27 [facility] Dipstick and Microscopicon 1 12-26-2021 Appearance (U) Clear Normal Clear [facility] Comment on above: Order Comment: Name Collection Type:: Clean-Voided Midstream Performed By: #### U RDS, ADDONUAPLUS #### [facility] [address] [place] [address] [place] Bacteria,Urine None Seen Normal None Seen [facility] Comment on above: Order Comment: Name Collection Type:: Clean-Voided Midstream Performed By: #### U RDS, ADDONUAPLUS #### [facility] [address] [place] [address] [place] Bilirubin,Urine Negative Normal Negative [facility] Comment on above: Order Comment: Name Collection Type:: Clean-Voided Midstream Performed By: #### U RDS, ADDONUAPLUS #### [facility] [address] [place] [address] [place] Color (U) Yellow Normal Yellow [facility] Comment on above: Order Comment: Name Collection Type:: Clean-Voided Midstream Performed By: #### U RDS, ADDONUAPLUS #### [facility] [address] [place] [address] [place] Glucose Ql (U) 500 mg/dL High Normal [facility] Comment on above: Order Comment: Name Collection Type:: Clean-Voided Midstream Performed By: #### U RDS, ADDONUAPLUS #### [facility] [address] [place] [address] [place] Hyaline Casts,Urine 0-8 Normal 0-8 [facility] Comment on above: Order Comment: Name Collection Type:: Clean-Voided Midstream Result Comment: PERF ORMED BY: [place] [address] PATHOLOGIST BYPRODUCT ENGINEER ANIL GUAMAN M.D. Performed By: #### U RDS, ADDONUAPLUS #### [facility] [address] [place] [address] [place] Ketones Ql (U) Trace High Negative [facility] Comment on above: Order Comment: Name Collection Type:: Clean-Voided Midstream Performed By: #### U RDS, ADDONUAPLUS #### [address] Leukocyte esterase Test stri p Ql (U) Negative Normal Negative [facility] Comment on above: Order Comment: Name Collection Type:: Clean-Voided Midstream Performed By: #### U RDS, ADDONUAPLUS #### [place] [address] [place] Nitrite,Urine Negative Normal [facility] Comment on above: Order Comment: Name Collection Type:: Clean-Voided Midstream Performed By: #### U RDS, ADDONUAPLUS #### [address] Occult Blood,Urine Negative Normal Negative [facility] Comment on above: Order Comment: Name Collection Type:: Clean-Voided Midstream Result Comment: PERF ORMED BY: [place] [address] PATHOLOGIST BYPRODUCT ENGINEER ANIL GUAMAN M.D. Performed By: #### U RDS, ADDONUAPLUS #### [place] [address] [place] pH (U) 7.0 [pH] Normal 5.0-9.0 [facility] Comment on above: Order Comment: Name Collection Type:: Clean-Voided Midstream Performed By: #### U RDS, ADDONUAPLUS #### [place] [address] [place] Protein,Urine Trace High Negative [facility] Comment on above: Order Comment: Name Collection Type:: Clean-Voided Midstream Performed By: #### U RDS, ADDONUAPLUS #### [place] [address] [place] RBC LM.HPF (Urine sed) [#/Area] 0 /[HPF] Normal 0-4 [facility] Comment on above: Order Comment: Name Collection Type:: Clean-Voided Midstream Performed By: #### U RDS, ADDONUAPLUS #### [place] [id number] [place] Specificy [place],Urine 1.027 Normal 1.001-1.030 [facility] Comment on above: Order Comment: Name Collection Type:: Clean-Voided Midstream Performed By: #### U RDS, ADDONUAPLUS #### [facility] [address] [place] [address] Squamous Epithelial Cell,Urine 0-1 Normal 0-2 [facility] Comment on above: Order Comment: Name Collection Type:: Clean-Voided Midstream Performed By: #### U RDS, ADDONUAPLUS #### [address] Urobilinogen,Urine Normal Normal Normal [facility] Comment on above: Order Comment: Name Collection Type:: Clean-Voided Midstream Performed By: #### U RDS, ADDONUAPLUS #### [facility] [address] [place] [address] WBC,Urine 1-2 Normal 0-4 [facility] Comment on above: Order Comment: Name Collection Type:: Clean-Voided Midstream Performed By: #### U RDS, ADDONUAPLUS #### [facility] [address] [place] [address] Direct bilirubin measurement Ordered By: Ladi Mina on 10-26-2022 Bilirubin.direct [Mass/Vol] 0.2 mg/dL 0.0-0.4 [facility] Drug Screen,Urineon 10-26-20 Amphetamine Screen,Urine Negative Normal Negative [facility] Comment on above: Performed By: #### U RDS, ADDONUAPLUS #### [facility] [address] [place] [address] Barbiturate Screen,Urine Negative Normal Negative [facility] Comment on above: Performed By: #### U RDS, ADDONUAPLUS #### [facility] [address] [place] [address] Benzodiazepines Screen,Urine Negative Normal Negativ e [facility] Comment on above: Performed By: #### U RDS, ADDONUAPLUS #### [facility] [address] [place] [address] [place] Cannabinoid Screen,Urine Negative Normal Negative [facility] Comment on above: Result Comment: Thes e are unconfirmed results and should not be used for legal purposes. Drug Cut-Off Concentration: AMPH 1000 ng/mL CHRISTINA 200 ng/mL CHRISTIANO 200 ng/mL COCM 300 ng/mL OP 300 ng/mL PCP 25 ng/mL THC 20 ng/mL PERFORMED BY: [place] [address] PATHOLOGIST BYPRODUCT ENGINEER ANIL GUAMAN M.D. Performed By: #### U RDS, ADDONUAPLUS #### [place] [address] [place] Cocaine Screen,Urine Negative Normal Negative [facility] Comment on above: Performed By: #### U RDS, ADDONUAPLUS #### [address] Opiate Screen,Urine Negative Normal Negative [facility] Comment on above: Performed By: #### U RDS, ADDONUAPLUS #### [place] [address] [place] Phencyclidine Screen,Urine Negative Normal Negative [facility] Comment on above: Performed By: #### U RDS, ADDONUAPLUS #### [address] ECG 12 lead ECGon 10-26-2022 ECG 12 lead ECG [facility] [place] [address] [place] [address] Electrocardiograph Report Signed 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 MR#: [id number] : 1970 Acct:[id number] Age/Sex: 52 / M ADM Date: 10/26/22 Loc: ER Room: Type: [facility] ER Attending Dr: Ordering Provider: NOMI Lopez Date of Service: 10/26/22 ECG/ECG 12 lead ECG: Abdominal Pain Copies to: Test Reason : Blood Pressure : 130/073 mmHG Vent. Rate : 080 BPM Atrial Rate : 080 BPM P-R Int : 186 ms QRS Dur : 078 ms QT Int : 384 ms P-R-T Axes : 042 -10 025 degrees QTc Int : 442 ms Normal sinus rhythm Confirmed by Dave HENDRICKS DO ([id number]) on 10/26/2022 12:15:39 PM Referred By: Electronically Signed By:Dave HENDRICKS DO Transcribed By: MUS Signed By Dave Hendricks DO 1 12/26/21 1215 Normal [facility] Eosinophils Auto (Bld) [#/Vo l]Ordered By: Ladi Bullimore on 10-26-2022 Eosinophils (Bld) [#/Vol] 0.1 10*3/uL 0.0-0.45 [facility] Eosinophils/100 WBC Auto (Bl d)Ordered By: Ladi Bullimore on 10-26-2022 Eosinophils/100 WBC (Bld) 1.0 % . [facility] Erythrocyte distribution wid th Auto (RBC) [Ratio]Ordered By: Ladi Bullimore on 10-26-2022 Erythrocyte distribution wid th (RBC) [Ratio] 12.2 % 12.0-14.8 [facility] Estimated glomerular filtrat ion rate (GFR) non- AmericanOrdered By: Ladi Villatoroimore on 10-26-2022 GFR/1.73 sq M.predicted michael g non-blacks MDRD (S/P/Bld) [Vol rate/Area] > 60 mL/Min [facility] Ethyl Alcohol Profileon 09-29 Ethanol [Mass/Vol] mg/dL Normal [facility] Comment on above: Performed By: #### U NICOLAS, ADDONUAPLUS #### [facility] [address] Percent Ethanol Not performed Normal [facility] Comment on above: Result Comment: PERF ORMED BY: [place] [address] PATHOLOGIST BYPRODUCT ENGINEER ANIL GUAMAN M.D. Performed By: #### U NICOLAS, ADDONUAPLUS #### [facility] [address] Globulin Calc (S) [Mass/Vol] Ordered By: Ladi Bullimore on 10-26-2022 Globulin (S) [Mass/Vol] 3.3 g/dL [facility] Hematocrit Auto (Bld) [Volum e fraction]Ordered By: Ladi Villatoroimore on 10-26-2022 Hematocrit (Bld) [Volume fraction] 44.3 % 3 8.8-50.0 [facility] Hemoglobin [Mass/volume] in BloodOrdered By: Ladi Bullimore on 10-26-2022 Hemoglobin (Bld) [Mass/Vol] 15.1 g/dL 13.0-17. 0 [facility] Hepatic Panelon 10-26-2022 Albumin [Mass/Vol] 3.9 g/dL Normal 3.2-5.5 [facility] Comment on above: Performed By: #### U RDS, ADDONUAPLUS #### [facility] [address] [place] [address] Albumin/Globulin [Mass ratio] 1.2 {ratio} Normal [facility] Comment on above: Performed By: #### U RDS, ADDONUAPLUS #### [facility] [address] [place] [address] ALP [Catalytic activity/Vol] 67 U/L Normal 32-92 [facility] Comment on above: Performed By: #### U RDS, ADDONUAPLUS #### [facility] [address] [place] [address] ALT [Catalytic activity/Vol] 20 U/L Normal 10-60 [facility] Comment on above: Performed By: #### U RDS, ADDONUAPLUS #### [facility] [address] [place] [address] [place] AST [Catalytic activity/Vol] 20 U/L Normal 10-42 [facility] Comment on above: Performed By: #### U RDS, ADDONUAPLUS #### [facility] [address] [place] [address] [place] Bilirubin [Mass/Vol] 1.2 mg/dL Normal 0.3-1.2 [facility] Comment on above: Performed By: #### U RDS, ADDONUAPLUS #### [facility] [address] [place] [address] [place] Bilirubin,Indirect 1.0 mg/dL Normal [facility] Comment on above: Performed By: #### U RDS, ADDONUAPLUS #### [facility] [address] Bilirubin.indirect [Mass/Vol] 0.2 mg/dL Normal 0.0-0. 4 [facility] Comment on above: Performed By: #### U NICOLAS, ADDONUAPLUS #### [facility] [address] Globulin (S) [Mass/Vol] 3.3 g/dL Normal [facility] Comment on above: Performed By: #### U RDS, ADDONUAPLUS #### [facility] [address] Protein [Mass/Vol] 7.2 g/dL Normal 6.1-7.9 [facility] Comment on above: Performed By: #### U NICOLAS, ADDONUAPLUS #### [facility] [address] Ketones Auto test strip (U) [Mass/Vol]Ordered By: Ladi Mina on 10-26-2022 Ketones (U) [Mass/Vol] Trace Negative [facility] Laboratory - Chemistry and C hemistry - challengeOrdered By: Ladi Mina on 10-26-2022 Lipase [Catalytic activity/Vol] 39.0 U/L 22-5 1 [facility] - Drug toxicology Ordered By: Ladi Mina on 10-26-2022 Opiates Ql (U) Negative Negative [facility] Laboratory - Hematology and Cell countsOrdered By: Ladi Mina on 10-26-2022 Nucleated RBC/100 WBC (Bld) [Ratio] 0.0 % 0-0.5 [facility] - UrinalysisOrder ed By: Ladi Mina on 10-26-2022 Hyaline casts LM Ql (Urine sed) 0-8 [LPF] 0-8 [facility] Leukocytes [#/volume] in Blo od by Automated countOrdered By: Ladi Mina on 10-26-2022 WBC (Bld) [#/Vol] 6.5 10*3/uL 4.5-11.0 [facility] Lipaseon 10-26-2022 Lipase [Catalytic activity/Vol] 39.0 U/L Normal 22-5 1 [facility] Comment on above: Result Comment: PERF ORMED BY: [facility] [address] [place] [address] PATHOLOGIST BYPRODUCT ENGINEER ANIL GUAMAN M.D. Performed By: #### U RDS, ADDONUAPLUS #### [facility] [address] Lymphocytes Auto (Bld) [#/Vo l]Ordered By: Ladi Bullimore on 10-26-2022 Lymphocytes (Bld) [#/Vol] 1.8 10*3/uL 1.00-4.8 [facility] Lymphocytes/100 WBC Auto (Bl d)Ordered By: Ladi Bullimore on 10-26-2022 Lymphocytes/100 WBC (Bld) 27.0 % . [facility] MCH Auto (RBC) [Entitic mass ]Ordered By: Ladi Bullimore on 10-26-2022 MCH (RBC) [Entitic mass] 32.0 pg 27.5-35.2 [facility] MCHC Auto (RBC) [Mass/Vol]Or dered By: Ladi Bullimore on 10-26-2022 MCHC (RBC) [Mass/Vol] 34.1 g/dL 32.5-35.6 [facility] MCV Auto (RBC) [Entitic vol] Ordered By: Ladi Bullimore on 10-26-2022 MCV (RBC) [Entitic vol] 93.9 fL 83.5-101 [facility] Monocytes Auto (Bld) [#/Vol] Ordered By: Ladi Bullimore on 10-26-2022 Monocytes (Bld) [#/Vol] 0.4 10*3/uL 0.0-0.8 [facility] Monocytes/100 WBC Auto (Bld) Ordered By: Ladi Bullimore on 10-26-2022 Monocytes/100 WBC (Bld) 6.1 % . [facility] Neutrophils Auto (Bld) [#/Vo l]Ordered By: Ladi Bullimore on 10-26-2022 Neutrophils (Bld) [#/Vol] 4.3 10*3/uL 1.8-7.7 [facility] Neutrophils/100 WBC Auto (Bl d)Ordered By: Ladi Bullimore on 10-26-2022 Neutrophils/100 WBC (Bld) 65.0 % . [facility] Nitrite Test strip Ql (U)Ord ered By: Ladi Bullimore on 10-26-2022 Nitrite Ql (U) Negative Negative [facility] No Panel InformationOrdered By: Ladi Villatoroimore on 10-26-2022 Estimated GFR () > 60 mL/Min [facility] Comment on above: GFR estimated refere nce range: According to KDOQI guidelines, <60 ml/min/1.73m2 is sufficient to diagnose a patient with chronic kidney disease. Pharmacy Creatinine Clearance (Chem 76.46 [facility] Phencyclidine Screen Ql (U)O rdered By: Ladi Bullimore on 10-26-2022 Phencyclidine Ql (U) Negative Negative [facility] Platelet mean volume Auto (B ld) [Entitic vol]Ordered By: Ladi Bullimore on 10-26-2022 Platelet mean volume (Bld) [Entitic vol] 8.6 fL 6.6-10.1 [facility] Platelets Auto (Bld) [#/Vol] Ordered By: Ladi Bullimore on 10-26-2022 Platelets (Bld) [#/Vol] 203 10*3/uL 150-450 [facility] Protein Auto test strip (U) [Mass/Vol]Ordered By: Ladi Bullimore on 10-26-2022 Protein (U) [Mass/Vol] Trace mg/dL Negative [facility] Protein [Mass/volume] in Ser um or PlasmaOrdered By: Ladi Bullimore on 10-26-2022 Protein [Mass/Vol] 7.2 g/dL 6.1-7.9 [facility] RBC Auto (Bld) [#/Vol]Ordere d By: Ladi Bullimore on 10-26-2022 RBC (Bld) [#/Vol] 4.72 10*6/uL 3.90-5.60 [facility] Serum or plasma alanine humphrey otransferase measurement without P-5'-P (enzymatic activiOrdered By: Ladi Villatorojude on 10-26-2022 ALT No additional P-5'-P [Ca talytic activity/Vol] 20 U/L 10-60 [facility] Serum or plasma albumin/glob ulin mass ratioOrdered By: Ladi Villatorojude on 10-26-2022 Albumin/Globulin [Mass ratio] 1.2 {ratio} [facility] Serum or plasma alkaline suzi sphatase measurement (enzymatic activity/volume)Ordered By: Ladisujey iVllatoromargie on 10-26-2022 ALP [Catalytic activity/Vol] 67 U/L 32-92 [facility] Serum or plasma anion gap de terminationOrdered By: Ladi Mina on 10-26-2022 Anion gap [Moles/Vol] 14.8 mmol/L 6.0-15.0 [facility] Serum or plasma aspartate am inotransferase measurement (enzymatic activity/volume)Ordered By: Ladi Mina on 10-26-2022 AST [Catalytic activity/Vol] 20 U/L 10-42 [facility] Serum or plasma calcium travis urement (mass/volume)Ordered By: Ladi Mina on 10-26-2022 Calcium [Mass/Vol] 9.0 mg/dL 8.2-10.2 [facility] Serum or plasma chloride hollie surement (moles/volume)Ordered By: Ladi Villatoromargie on 10-26-2022 Chloride [Moles/Vol] 98 mmol/L 95-114 [facility] Serum or plasma ethanol travis urement (mass/volume)Ordered By: Ladisujey Villatoromargie on 10-26-2022 Ethanol [Mass/Vol] mg/dL [facility] Ethanol [Mass/Vol] TNP [facility] Comment on above: Test not performed Serum or plasma glucose travis urement (mass/volume)Ordered By: Ladisujey Mina on 10-26-2022 Glucose [Mass/Vol] 284 mg/dL 70-100 [facility] Comment on above: ADA recommended refe rence rangeRandom Glucose Reference Range is dependent on time and content of last meal. Glucose of more than 200 mg/dL in a nonstressed, ambulatory subject supports the diagnosis of Diabetes Mellitus. Serum or plasma non-glucuron idated bilirubin measurement (mass/volume)Ordered By: Ladi Mina on 10-26-2022 Bilirubin.indirect [Mass/Vol] 1.0 mg/dL [facility] Serum or plasma potassium me asurement (moles/volume)Ordered By: Ladi Mina on 10-26-2022 Potassium [Moles/Vol] 4.0 mmol/L 3.5-5.1 [facility] Serum or plasma sodium measu rement (moles/volume)Ordered By: Ladi Mina on 10-26-2022 Sodium [Moles/Vol] 138 mmol/L 136-146 [facility] Serum or plasma total biliru bin measurement (mass/volume)Ordered By: Ladi Mina on 10-26-2022 Bilirubin [Mass/Vol] 1.2 mg/dL 0.3-1.2 [facility] Serum or plasma total carbon dioxide measurement (moles/volume)Ordered By: Ladi Mina on 10-26-2022 CO2 [Moles/Vol] 29.2 mmol/L 22.0-30.0 [facility] Serum or plasma urea nitroge n measurement (mass/volume)Ordered By: Ladi Mina on 10-26-2022 Urea nitrogen [Mass/Vol] 19 mg/dL 9-23 [facility] Specific gravity Auto test s trip (U) [Rel density]Ordered By: Ladi Mina on 10-26-2022 Specific gravity (U) [Rel density] 1.027 1.001-1.030 [facility] Squamous epithelial cells de tection in urine sediment by light microscopyOrdered By: Ladi Mina on 10-26-2022 Epithelial cells.squamous LM Ql (Urine sed) 0-1 [HPF] 0-2 [facility] Urine bacteria detection by automated methodOrdered By: Ladi Mina on 10-26-2022 Bacteria Auto Ql (U) None seen None Seen [facility] Urine clarity by refractomet ry automatedOrdered By: Ladi Mina on 10-26-2022 Clarity Refractometry automated (U) Clear Clear [facility] Urine cocaine detectionOrder ed By: Ladi Mina on 10-26-2022 Cocaine Ql (U) Negative Negative [facility] Urine glucose measurement by automated test strip (mass/volume)Ordered By: Ladi Mina on 10-26-2022 Glucose Auto test strip (U) [Mass/Vol] 500 mg/dL Normal [facility] Urine hemoglobin detection b y automated test stripOrdered By: Ladi Mina on 10-26-2022 Hemoglobin Auto test strip Ql (U) Negative Ne gative [facility] Urine leukocyte esterase det ection by automated test stripOrdered By: Ladi Mina on 10-26-2022 Leukocyte esterase Auto test strip Ql (U) Negative Negative [facility] Urobilinogen Auto test strip (U) [Mass/Vol]Ordered By: Ladi Mina on 10-26-2022 Urobilinogen (U) [Mass/Vol] Normal mg/dL Normal [facility] pH Auto test strip (U)Ordere d By: Ladi Mina on 10-26-2022 pH (U) 7.0 [pH] 5.0-9.0 [facility] Glucose Glucometer (BldC) [M ass/Vol]Ordered By: Grayson Duvall on 10-13-2022 Glucose [Mass/Vol] 271 mg/dL [facility] Comment on above: Random Glucose Refer ence Range is dependent on time and content of last meal. Glucose of more than 200 mg/dL in a nonstressed, ambulatory subject supports the diagnosis of Diabetes Mellitus. Glucose Poct Glucometerson 1 12-13-2021 Commemt1 Glu2: Cleaned Meter Normal [facility] Comment on above: Result Comment: PERF ORMED BY: [place] [address] PATHOLOGIST BYPRODUCT ENGINEER ANIL GUAMAN M.D. Performed By: #### C MP, TSH3, LIPID #### [address] Glucose [Mass/Vol] 271 mg/dL Normal [facility] Comment on above: Result Comment: [place] Glucose Reference Range is dependent on time and content of last meal. Glucose of more than 200 mg/dL in a nonstressed, ambulatory subject supports the diagnosis of Diabetes Mellitus. Performed By: #### C MP, TSH3, LIPID #### [facility] [address] No Panel InformationOrdered By: Grayson Duvall on 10-13-2022 Bedside Glucose Comment Glu2: cleaned meter [facility] Albumin [Mass/volume] in Ser um or PlasmaOrdered By: Boy Frost on 10-11-2022 Albumin [Mass/Vol] 3.8 g/dL 3.2-5.5 [facility] Basophils Auto (Bld) [#/Vol] Ordered By: Boy Frost on 10-11-2022 Basophils (Bld) [#/Vol] 0.0 10*3/uL 0.0-0.2 [facility] Basophils/100 WBC Auto (Bld) Ordered By: Boy Frost on 10-11-2022 Basophils/100 WBC (Bld) 0.7 % . [facility] COVID CepheidOrdered By: Raymundo Thayer on 10-11-2022 SARS-CoV-2 (COVID-19) Ab IA Ql Negative Negat dilip [facility] Comment on above: This is a duplicate Cepheid Xpert Xpress CoV-2/Flu/RSV Plus RNA by RT-PCR result to be used for statistical tracking purpose only. SARS-CoV-2 (COVID-19) RNA NA A+probe Ql (Unsp spec) [facility] SARS-CoV-2 (COVID-19) RNA NA A+probe Ql (Unsp spec) [facility] COVID-19 / Flu A/B / RSV PCR on 10-11-2022 SARS-CoV-2 (COVID-19) RNA SILVIA+probe Ql (Unsp spec) COVID-19 Cepheid Result Negative for SARS-CoV-2 RNA by RT-PCR Flu A Cepheid Result Negative for Flu A RNA by RT-PCR Flu B Cepheid Result Negative for Flu B RNA by RT-PCR RSV Cepheid Result Negative for RSV RNA by RT-PCR COVID19 Blank Space Reference: Negative COVID19 Blank Space Cepheid Disclaimer The Cepheid Xpert Xpress CoV-2/Flu/RSV Plus has Cepheid Disclaimer not been FDA cleared or approved; this test has Cepheid Disclaimer been authorized by FDA under an EUA for use by Cepheid Disclaimer authorized laboratories; this test has been Cepheid Disclaimer authorized only for the simultaneous qualitative Cepheid Disclaimer detection and differentiation of nucleic acids from Cepheid Disclaimer SARS-CoV-2, influenza A, influenza B, and Cepheid Disclaimer respiratory syncytial virus (RSV), and not for any Cepheid Disclaimer other viruses or pathogens; and this test is only Cepheid Disclaimer authorized for the duration of the declaration that Cepheid Disclaimer circumstances exist justifying the authorization of Cepheid Disclaimer emergency use of in vitro diagnostic tests for Cepheid Disclaimer detection and/or diagnosis of COVID-19 under Cepheid Disclaimer Section 564(b)(1) of the Act, 21 U.S.C. 360bbb- Cepheid Disclaimer 3(b)(1), unless the authorization is terminated or Cepheid Disclaimer revoked sooner. PERFORMED BY: [place] [address] [place] [address] PATHOLOGIST BYPRODUCT ENGINEER ANIL GUAMAN M.D. Normal [facility] Comment on above: Performed By: #### V BG #### Point of Care testing , Cepheid COVID PCR Negativeon 10-11-2022 SARS-CoV-2 (COVID-19) RNA SILVIA+probe Ql (Unsp spec) Negative Normal Negative [facility] Comment on above: Result Comment: This is a duplicate CepDobletid Xpert Xpress CoV- 2/Flu/RSV Plus RNA by RT-PCR result to be used for statistical tracking purpose only. PERFORMED BY: [place] [id number] PATHOLOGIST BYPRODUCT ENGINEER ANIL GUAMAN M.D. Performed By: #### V BG #### Point of Care testing , Complete Blood Count Auto Di ffon 10-11-2022 Basophils (Bld) [#/Vol] 0.0 10*3/uL Normal 0.0-0.2 [facility] Comment on above: Result Comment: PERF ORMED BY: [place] [address] PATHOLOGIST BYPRODUCT ENGINEER ANIL GUAMAN M.D. Performed By: #### C MP, TSH3, LIPID #### [facility] [address] [place] [address] Basophils/100 WBC (Bld) 0.7 % Normal . [facility] Comment on above: Performed By: #### C MP, TSH3, LIPID #### [facility] [address] [place] [address] [place] Eosinophils (Bld) [#/Vol] 0.1 10*3/uL Normal 0.0-0.45 [facility] Comment on above: Performed By: #### C MP, TSH3, LIPID #### [facility] [address] [place] [address] [place] Eosinophils/100 WBC (Bld) 0.9 % Normal . [facility] Comment on above: Performed By: #### C MP, TSH3, LIPID #### [facility] [address] Erythrocyte distribution wid th (RBC) [Ratio] 13.0 % Normal 12.0-14.8 [facility] Comment on above: Performed By: #### C MP, TSH3, LIPID #### [facility] [address] Hematocrit (Bld) [Volume fraction] 45.6 % Normal 38.8-50.0 [facility] Comment on above: Performed By: #### C MP, TSH3, LIPID #### [address] Hemoglobin (Bld) [Mass/Vol] 15.8 g/dL Normal 13.0-17. 0 [facility] Comment on above: Performed By: #### C MP, TSH3, LIPID #### [address] Lymphocytes (Bld) [#/Vol] 1.7 10*3/uL Normal 1.00-4.8 [facility] Comment on above: Performed By: #### C MP, TSH3, LIPID #### [address] Lymphocytes/100 WBC (Bld) 24.7 % Normal . [facility] Comment on above: Performed By: #### C MP, TSH3, LIPID #### [address] MCH (RBC) [Entitic mass] 32.2 pg Normal 27.5-35.2 [facility] Comment on above: Performed By: #### C MP, TSH3, LIPID #### [address] MCV (RBC) [Entitic vol] 93.0 fL Normal 83.5-101 [facility] Comment on above: Performed By: #### C MP, TSH3, LIPID #### [address] Mean Corpuscular HGB Conc 34.7 g/dL Normal 32.5-35.6 [facility] Comment on above: Performed By: #### C MP, TSH3, LIPID #### [address] Monocytes (Bld) [#/Vol] 0.5 10*3/uL Normal 0.0-0.8 [facility] Comment on above: Performed By: #### C MP, TSH3, LIPID #### [address] Monocytes/100 WBC (Bld) 6.5 % Normal . [facility] Comment on above: Performed By: #### C MP, TSH3, LIPID #### [facility] [address] [place] [address] [place] Neutrophils (Bld) [#/Vol] 4.7 10*3/uL Normal 1.8-7.7 [facility] Comment on above: Performed By: #### C MP, TSH3, LIPID #### [facility] [address] [place] [address] [place] Neutrophils/100 WBC (Bld) 67.2 % Normal . [facility] Comment on above: Performed By: #### C MP, TSH3, LIPID #### [facility] [address] [place] [address] [place] Nucleated RBC/100 WBC (Bld) [Ratio] 0.0 % Normal 0-0.5 [facility] Comment on above: Performed By: #### C MP, TSH3, LIPID #### [facility] [address] [place] [address] [place] Platelet mean volume (Bld) [Entitic vol] 8.7 fL Normal 6.6-10.1 [facility] Comment on above: Performed By: #### C MP, TSH3, LIPID #### [facility] [address] [place] [address] [place] Platelets (Bld) [#/Vol] 209 10*3/uL Normal 150-450 [facility] Comment on above: Performed By: #### C MP, TSH3, LIPID #### [facility] [address] [place] [address] [place] RBC (Bld) [#/Vol] 4.90 10*6/uL Normal 3.90-5.60 [facility] Comment on above: Performed By: #### C MP, TSH3, LIPID #### [facility] [address] [place] [address] [place] WBC (Bld) [#/Vol] 7.0 10*3/uL Normal 4.5-11.0 [facility] Comment on above: Performed By: #### C MP, TSH3, LIPID #### [facility] [address] Comprehensive Metabolic Pane rudolph 10-11-2022 Albumin [Mass/Vol] 3.8 g/dL Normal 3.2-5.5 [facility] Comment on above: Performed By: #### C MP, TSH3, LIPID #### [facility] [address] Albumin/Globulin [Mass ratio] 1.1 {ratio} Normal [facility] Comment on above: Performed By: #### C MP, TSH3, LIPID #### [facility] [address] ALP [Catalytic activity/Vol] 69 U/L Normal 32-92 [facility] Comment on above: Performed By: #### C MP, TSH3, LIPID #### [facility] [address] ALT [Catalytic activity/Vol] 23 U/L Normal 10-60 [facility] Comment on above: Performed By: #### C MP, TSH3, LIPID #### [facility] [address] Anion gap [Moles/Vol] 10.6 mmol/L Normal 6.0-15.0 [facility] Comment on above: Performed By: #### C MP, TSH3, LIPID #### [facility] [address] [place] [address] [place] AST [Catalytic activity/Vol] 20 U/L Normal 10-42 [facility] Comment on above: Performed By: #### C MP, TSH3, LIPID #### [facility] [address] [place] [id number] [place] Bilirubin [Mass/Vol] 1.0 mg/dL Normal 0.3-1.2 [facility] Comment on above: Performed By: #### C MP, TSH3, LIPID #### [facility] [address] [place] [address] [place] Calcium [Mass/Vol] 9.5 mg/dL Normal 8.2-10.2 [facility] Comment on above: Performed By: #### C MP, TSH3, LIPID #### [facility] [address] [place] [address] [place] Chloride [Moles/Vol] 102 mmol/L Normal 95-114 [facility] Comment on above: Performed By: #### C MP, TSH3, LIPID #### [facility] [address] CO2 [Moles/Vol] 27.5 mmol/L Normal 22.0-30.0 [facility] Comment on above: Performed By: #### C MP, TSH3, LIPID #### [facility] [address] Creatinine [Mass/Vol] 0.94 mg/dL Normal 0.64-1.27 [facility] Comment on above: Performed By: #### C MP, TSH3, LIPID #### [facility] [address] [place] [address] Creatinine Clr Calc Pharmacy 96.80 [facility] Comment on above: Performed By: #### C MP, TSH3, LIPID #### [address] Estimated GFR ( Ak[place] > 60 [facility] Comment on above: Result Comment: GFR estimated reference range: According to KDOQI guidelines, <60 ml/min/1.73m2 is sufficient to diagnose a patient with chronic kidney disease. Performed By: #### C MP, TSH3, LIPID #### [facility] [address] [place] [address] Estimated GFR (Non- Am > 60 [facility] Comment on above: Performed By: #### C MP, TSH3, LIPID #### [facility] [address] [place] [address] [place] Globulin (S) [Mass/Vol] 3.5 g/dL Normal [facility] Comment on above: Performed By: #### C MP, TSH3, LIPID #### [facility] [address] [place] [address] [place] Glucose [Mass/Vol] 283 mg/dL High 70-100 [facility] Comment on above: Result Comment: [place] om Glucose Reference Range is dependent on time and content of last meal. Glucose of more than 200 mg/dL in a nonstressed, ambulatory subject supports the diagnosis of Diabetes Mellitus. ADA recommended reference range Performed By: #### C MP, TSH3, LIPID #### [facility] [address] [place] [address] [place] Potassium [Moles/Vol] 4.1 mmol/L Normal 3.5-5.1 [facility] Comment on above: Performed By: #### C MP, TSH3, LIPID #### [facility] [address] [place] [address] [place] Protein [Mass/Vol] 7.3 g/dL Normal 6.1-7.9 [facility] Comment on above: Performed By: #### C MP, TSH3, LIPID #### [facility] [address] [place] [address] [place] Sodium [Moles/Vol] 136 mmol/L Normal 136-146 [facility] Comment on above: Performed By: #### C MP, TSH3, LIPID #### [facility] [address] [place] [address] [place] Urea nitrogen [Mass/Vol] 27 mg/dL High 9-23 [facility] Comment on above: Performed By: #### C MP, TSH3, LIPID #### [facility] [address] [place] [address] [place] Creatinine and Glomerular fi ltration rate.predicted panel (S/P/Bld)Ordered By: Boy Frost on 10-11-2022 Creatinine [Mass/Vol] 0.94 mg/dL 0.64-1.27 [facility] Eosinophils Auto (Bld) [#/Vo l]Ordered By: Boy Frost on 10-11-2022 Eosinophils (Bld) [#/Vol] 0.1 10*3/uL 0.0-0.45 [facility] Eosinophils/100 WBC Auto (Bl d)Ordered By: Boy Frost on 10-11-2022 Eosinophils/100 WBC (Bld) 0.9 % . [facility] Erythrocyte distribution wid th Auto (RBC) [Ratio]Ordered By: Boy Frost on 10-11-2022 Erythrocyte distribution wid th (RBC) [Ratio] 13.0 % 12.0-14.8 [facility] Estimated glomerular filtrat ion rate (GFR) non- AmericanOrdered By: Boy Frost on 10-11-2022 GFR/1.73 sq M.predicted michael g non-blacks MDRD (S/P/Bld) [Vol rate/Area] > 60 mL/Min [facility] Globulin Calc (S) [Mass/Vol] Ordered By: Boy Frost on 10-11-2022 Globulin (S) [Mass/Vol] 3.5 g/dL [facility] Hematocrit Auto (Bld) [Volum e fraction]Ordered By: Boy Frost on 10-11-2022 Hematocrit (Bld) [Volume fraction] 45.6 % 3 8.8-50.0 [facility] Hemoglobin [Mass/volume] in BloodOrdered By: Boy Frost on 10-11-2022 Hemoglobin (Bld) [Mass/Vol] 15.8 g/dL 13.0-17. 0 [facility] - Chemistry and C hemistry - challengeOrdered By: Boy Frost on 10-11-2022 Lipase [Catalytic activity/Vol] 46.0 U/L 22-5 1 [facility] - Hematology and Cell countsOrdered By: Boy Frost on 10-11-2022 Nucleated RBC/100 WBC (Bld) [Ratio] 0.0 % 0-0.5 [facility] Leukocytes [#/volume] in Blo od by Automated countOrdered By: Boy Frost on 10-11-2022 WBC (Bld) [#/Vol] 7.0 10*3/uL 4.5-11.0 [facility] Lipaseon 10-11-2022 Lipase [Catalytic activity/Vol] 46.0 U/L Normal 22-5 1 [facility] Comment on above: Result Comment: PERF ORMED BY: [facility] [address] [place] [address] PATHOLOGIST BYPRODUCT ENGINEER ANIL GUAMAN M.D. Performed By: #### C MP, TSH3, LIPID #### [facility] [address] Lymphocytes Auto (Bld) [#/Vo l]Ordered By: Boy Frost on 10-11-2022 Lymphocytes (Bld) [#/Vol] 1.7 10*3/uL 1.00-4.8 [facility] Lymphocytes/100 WBC Auto (Bl d)Ordered By: Boy Frost on 10-11-2022 Lymphocytes/100 WBC (Bld) 24.7 % . [facility] MCH Auto (RBC) [Entitic mass ]Ordered By: Boy Frost on 10-11-2022 MCH (RBC) [Entitic mass] 32.2 pg 27.5-35.2 [facility] MCHC Auto (RBC) [Mass/Vol]Or dered By: Boy Frost on 10-11-2022 MCHC (RBC) [Mass/Vol] 34.7 g/dL 32.5-35.6 [facility] MCV Auto (RBC) [Entitic vol] Ordered By: Boy Frost on 10-11-2022 MCV (RBC) [Entitic vol] 93.0 fL 83.5-101 [facility] Monocytes Auto (Bld) [#/Vol] Ordered By: Boy Frost on 10-11-2022 Monocytes (Bld) [#/Vol] 0.5 10*3/uL 0.0-0.8 [facility] Monocytes/100 WBC Auto (Bld) Ordered By: Boy Frost on 10-11-2022 Monocytes/100 WBC (Bld) 6.5 % . [facility] Neutrophils Auto (Bld) [#/Vo l]Ordered By: Boy Frost on 10-11-2022 Neutrophils (Bld) [#/Vol] 4.7 10*3/uL 1.8-7.7 [facility] Neutrophils/100 WBC Auto (Bl d)Ordered By: Boy Frost on 10-11-2022 Neutrophils/100 WBC (Bld) 67.2 % . [facility] No Panel InformationOrdered By: Boy Frost on 10-11-2022 Estimated GFR () > 60 mL/Min [facility] Comment on above: GFR estimated refere nce range: According to KDOQI guidelines, <60 ml/min/1.73m2 is sufficient to diagnose a patient with chronic kidney disease. Pharmacy Creatinine Clearance (Chem 96.80 [facility] Platelet mean volume Auto (B ld) [Entitic vol]Ordered By: Boy Frost on 10-11-2022 Platelet mean volume (Bld) [Entitic vol] 8.7 fL 6.6-10.1 [facility] Platelets Auto (Bld) [#/Vol] Ordered By: Boy Frost on 10-11-2022 Platelets (Bld) [#/Vol] 209 10*3/uL 150-450 [facility] Protein [Mass/volume] in Ser um or PlasmaOrdered By: Boy Frost on 10-11-2022 Protein [Mass/Vol] 7.3 g/dL 6.1-7.9 [facility] RBC Auto (Bld) [#/Vol]Ordere d By: Boy Frost on 10-11-2022 RBC (Bld) [#/Vol] 4.90 10*6/uL 3.90-5.60 [facility] Serum or plasma alanine humphrey otransferase measurement without P-5'-P (enzymatic activiOrdered By: Boy Frost on 10-11-2022 ALT No additional P-5'-P [Ca talytic activity/Vol] 23 U/L 10-60 [facility] Serum or plasma albumin/glob ulin mass ratioOrdered By: Boy Frost on 10-11-2022 Albumin/Globulin [Mass ratio] 1.1 {ratio} [facility] Serum or plasma alkaline suzi sphatase measurement (enzymatic activity/volume)Ordered By: Boy Frost on 10-11-2022 ALP [Catalytic activity/Vol] 69 U/L 32-92 [facility] Serum or plasma anion gap de terminationOrdered By: Boy Frost on 10-11-2022 Anion gap [Moles/Vol] 10.6 mmol/L 6.0-15.0 [facility] Serum or plasma aspartate am inotransferase measurement (enzymatic activity/volume)Ordered By: Boy Frost on 10-11-2022 AST [Catalytic activity/Vol] 20 U/L 10-42 [facility] Serum or plasma calcium travis urement (mass/volume)Ordered By: Boy Frost on 10-11-2022 Calcium [Mass/Vol] 9.5 mg/dL 8.2-10.2 [facility] Serum or plasma chloride hollie surement (moles/volume)Ordered By: Boy Frost on 10-11-2022 Chloride [Moles/Vol] 102 mmol/L 95-114 [facility] Serum or plasma glucose travis urement (mass/volume)Ordered By: Boy Frost on 10-11-2022 Glucose [Mass/Vol] 283 mg/dL 70-100 [facility] Comment on above: ADA recommended refe rence rangeRandom Glucose Reference Range is dependent on time and content of last meal. Glucose of more than 200 mg/dL in a nonstressed, ambulatory subject supports the diagnosis of Diabetes Mellitus. Serum or plasma potassium me asurement (moles/volume)Ordered By: Boy Frost on 10-11-2022 Potassium [Moles/Vol] 4.1 mmol/L 3.5-5.1 [facility] Serum or plasma sodium measu rement (moles/volume)Ordered By: Boy Frost on 10-11-2022 Sodium [Moles/Vol] 136 mmol/L 136-146 [facility] Serum or plasma total biliru bin measurement (mass/volume)Ordered By: Boy Frost on 10-11-2022 Bilirubin [Mass/Vol] 1.0 mg/dL 0.3-1.2 [facility] Serum or plasma total carbon dioxide measurement (moles/volume)Ordered By: Boy Frost on 10-11-2022 CO2 [Moles/Vol] 27.5 mmol/L 22.0-30.0 [facility] Serum or plasma urea nitroge n measurement (mass/volume)Ordered By: Boy Frost on 10-11-2022 Urea nitrogen [Mass/Vol] 27 mg/dL 9-23 [facility] XR acute abdomen serieson 11 -14-[address]R [address] abdomen [address] [facility] [place] [address] [place] [address] XRay Report Signed 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 MR#: [id number] : 1970 Acct:[id number] Age/Sex: 52 / M ADM Date: 10/11/22 Loc: ER Room: Type: [facility] ER Attending Dr: Copies to: Vimal Thaeyr MD Ordering Provider: Vimal Thayer MD Date of Service: 10/11/22 XR/XR acute abdomen series: Nausea/Vomiting/Diarrhea XR acute abdomen series 10/11/2022 12:33 PM SIGNS AND SYMPTOMS: Nausea, vomiting, diarrhea, abdominal pain PROTOCOL: Frontal radiographs of the chest, abdomen, and pelvis COMPARISON: 01/20/2021 FINDINGS: The trachea is midline. The heart and mediastinal structures are within normal limits. The lung parenchyma is clear. There has been interval removal of posterior fusion hardware with redemonstration of a compression deformity at T8. There are remote appearing right-sided lower rib fractures with bony callus formation. There is a nonobstructive bowel gas pattern. There is no radiographic evidence of free air. No radiodense stones are noted. The bony structures are grossly intact. XR/XR acute abdomen series IMPRESSION: No acute cardiopulmonary pathology. There has been interval removal of posterior fusion hardware with redemonstration of a compression deformity at T8. There are remote appearing right-sided lower rib fractures with bony callus formation. No evidence of bowel obstruction or free air. Impression dictated by: Tae Seals M.D.10/11/2022 1:45 PM Dictation Location: [place] [address] Transcribed By: [facility] 10/11/22 1345 Dictated By: Tae Seals II, MD 10/11/22 1340 Signed By: 10/11/22 [address] [facility] [address] ABDOMEN/PELVIS WITH CONTR Kellie 06-07-2019 Impression: 1. No ac [place] CT abnormalities 2. Circumferential esophageal wall thickening; esophagitis vs neoplasm; recommend followup upper gi esophogram vs direct visualization. 3. Gastric fundal wall thickening; gastritis vs neoplasm as well and can be further evaluated with above mentioned upper GI. Electronically Signed By: Nadeem Mercado M.D. on Jun 07 2019 1:39:53:727AM [facility] User, Interfaces - 0 06/07/2019 1:41 AM EDT Patient Name: JUSTICE ARANDA Patient NRM: [id number] Patient : 1970 Examination:CT ABDOMEN/PELVIS WITH CONTRAST Date of Exam: 06/07/2019 Ordering Provider: IVETT FAN Relevant Clinical Information:Vomiting since 05/31/19 with loose stools, no surgery, pain around belly button but only when he vomits, elevated liver enzymes, no history of surgery or CA, 97 mL optiray 320 IV, previous KUB 06/06/19 NUMBER OF VIEWS:1 CT ABDOMEN/PELVIS WITH CONTRAST COMPARISON: None TECHNIQUE: Multiple axial CT images through the abdomen/pelvis with contrast. Sagittal and coronal reformations provided. HISTORY: VOMITING Findings: Lung base: No consolidation, effusion or pneumothorax in visualized portions of lungs. Lower mediastinum: Circumferential esophageal wall thickening. Liver: No CT evidence of lesion. No intrahepatic ductal dilatation. Gallbladder: No gallbladder wall thickening or stones. No pericholecystic fluid or stranding. Pancreas, spleen, adrenals: No CT abnormalities Kidneys/collecting system: No lesion, hydronephrosis or calcification. Genito: No CT abnormality Colon/appendix: No bowel wall thickening or inflammatory change. Stomach/small bowel: Gastric fundal wall thickening. No small bowel dilatation or bowel wall thickening. Mesentery/retroperitoneum: No adenopathy or mass. No free fluid or free air. MSK: No lytic or blastic lesions, no fracture or dislocation. Superficial soft Tissues: Normal. IMPRESSION Impression: 1.No acute CT abnormalities 2.Circumferential esophageal wall thickening; esophagitis vs neoplasm; recommend followup upper gi esophogram vs direct visualization. 3.Gastric fundal wall thickening; gastritis vs neoplasm as well and can be further evaluated with above mentioned upper GI. Electronically Signed By: Nadeem Mercado M.D. on Jun 07 2019 1:39:53:727AM [facility] Patient Name: JUSTICE ARANDA Patient NRM: [id number] Patient : 1970 Examination:CT ABDOMEN/PELVIS WITH CONTRAST Date of Exam: 06/07/2019 Ordering Provider: IVETT FAN Relevant Clinical Information:Vomiting since 05/31/19 with loose stools, no surgery, pain around belly button but only when he vomits, elevated liver enzymes, no history of surgery or CA, 97 mL optiray 320 IV, previous KUB 06/06/19 NUMBER OF VIEWS:1 CT ABDOMEN/PELVIS WITH CONTRAST COMPARISON: None TECHNIQUE: Multiple axial CT images through the abdomen/pelvis with contrast. Sagittal and coronal reformations provided. HISTORY: VOMITING Findings: Lung base: No consolidation, effusion or pneumothorax in visualized portions of lungs. Lower mediastinum: Circumferential esophageal wall thickening. Liver: No CT evidence of lesion. No intrahepatic ductal dilatation. Gallbladder: No gallbladder wall thickening or stones. No pericholecystic fluid or stranding. Pancreas, spleen, adrenals: No CT abnormalities Kidneys/collecting system: No lesion, hydronephrosis or calcification. Genito: No CT abnormality Colon/appendix: No bowel wall thickening or inflammatory change. Stomach/small bowel: Gastric fundal wall thickening. No small bowel dilatation or bowel wall thickening. Mesentery/retroperitoneum: No adenopathy or mass. No free fluid or free air. MSK: No lytic or blastic lesions, no fracture or dislocation. Superficial soft Tissues: Normal. [facility] PROTIME-INRon 06-07-2019 INR Coag (PPP) [Relative time] 1.1 {INR} [facility] Comment on above: INR: ------INDICATION INR Ref Range DVT, PE, AF, AMI, tissue heart valve 2.0 - 3.0 Mechanical prosthetic valves 2.5 - 3.5 PT Coag (PPP) [Time] 12.9 s [facility] XR ABDOMEN 1 VIEWon 06-07-20 19 User, Interfaces - 0 06/07/2019 12:40 AM EDT Patient Name: JUSTICE ARANDA Patient NRM: [id number] Patient : 1970 Examination:XR ABDOMEN 1 VIEW Date of Exam: 06/07/2019 Ordering Provider: IVETT FAN Relevant Clinical Information:Vomiting and loose stools x 7 days, no history of surgery, fever NUMBER OF VIEWS:1 Indication: Vomiting and loose stools x 7 days, no history of surgery, fever Comparison: None Technique: Frontal view of the supine abdomen. Findings: Scattered gaseous distended bowel loops distributed throughout the periphery of the abdomen. Mottled lucencies within the ascending colon. Pelvic phleboliths otherwise no pathologic soft tissue calcifications. No acute bony abnormalities. IMPRESSION Impression: Nonspecific, nonobstructive bowel gas pattern with mild colonic stool burden. Electronically Signed By: Luis Carlos Martínez MD on Jun 07 2019 12:40:30:390AM [facility] Impression: Nonspeci fic, nonobstructive bowel gas pattern with mild colonic stool burden. Electronically Signed By: Luis Carlos Martínez MD on Jun 07 2019 12:40:30:390AM [facility] Patient Name: JUSTICE ARANDA Patient NRM: [id number] Patient : 1970 Examination:XR ABDOMEN 1 VIEW Date of Exam: 06/07/2019 Ordering Provider: IVETT FAN Relevant Clinical Information:Vomiting and loose stools x 7 days, no history of surgery, fever NUMBER OF VIEWS:1 Indication: Vomiting and loose stools x 7 days, no history of surgery, fever Comparison: None Technique: Frontal view of the supine abdomen. Findings: Scattered gaseous distended bowel loops distributed throughout the periphery of the abdomen. Mottled lucencies within the ascending colon. Pelvic phleboliths otherwise no pathologic soft tissue calcifications. No acute bony abnormalities. [facility] AMYLASEon 06-06-2019 Amylase [Catalytic activity/Vol] 179 U/L High 25 - 125 U/L [employer] CBC, EDIF, PLATELETon 2018 Basophils/100 WBC (Bld) 0.6 % 0 - 3 % V [employer] Eosinophils/100 WBC (Bld) 0.4 % 0 - 4 % [employer] Erythrocyte distribution wid th (RBC) [Ratio] 12.9 % 11.5 - 14.5 % [facility] Hematocrit (Bld) [Volume fraction] 37.8 % Low 4 2 - 52 % [facility] Hemoglobin (Bld) [Mass/Vol] 13.5 g/dL Low 14 - 18 g/dL [facility] Lymphocytes/100 WBC (Bld) 27.2 % 20.5 - 51. 1 % [facility] MCH (RBC) [Entitic mass] 33.6 pg High 28 - 32 pg [employer] MCHC (RBC) [Mass/Vol] 35.6 g/dL 33 - 37 g/dL [facility] [place] MCV (RBC) [Entitic vol] 94.5 fL High 80 - 94 fL V [facility] [employer] Monocytes/100 WBC (Bld) 7.8 % 0 - 13 % V [facility] [employer] Neutrophils/100 WBC (Bld) 64.0 % 42.2 - 75. 2 % COUNTS INCLUDE 234 [facility] AT [facility] Platelets (Bld) [#/Vol] 150 10*3/uL COUNTS INCLUDE 234 [facility] AT [facility] RBC (Bld) [#/Vol] 4.00 10*6/uL Low [facility] SCAN SLIDE NO NO [facility] H WBC (Bld) [#/Vol] 6.3 10*3/uL [facility] COMPREHENSIVE METABOLIC PROF BABS [place] 06-06-2019 Albumin BCG dye [Mass/Vol] 3.9 g/dL 3.5 - 5 g /dL COUNTS [facility]CLUDE 234 BEDS AT [facility] Albumin/Globulin [Mass ratio] 1.3 {ratio} COUNTS INCLUDE 234 BEDS AT [facility] ALP [Catalytic activity/Vol] 49 U/L 38 - 12 6 U/L COUNTS INCLUDE 234 BEDS AT [facility] ALT No additional P-5'-P [Catalytic activity/Vol] 27 U/L 10 - 40 U/L [facility] Anion gap [Moles/Vol] 13.1 mmol/L [facility] AST [Catalytic activity/Vol] 24 U/L 10 - 42 U/L COUNTS INCLUDE 234 BEDS AT [facility] Bilirubin [Mass/Vol] 1.0 mg/dL 0.3 - 1.2 mg/dL COUNTS INCLUDE 234 BEDS AT [facility] Calcium [Mass/Vol] 8.9 mg/dL 8.4 - 10.2 mg/dL [facility] [facility] Chloride [Moles/Vol] 101 mmol/L [place] [facility] CO2 [Moles/Vol] 27 mmol/L COUNTS INCLUDE 234 BEDS AT [facility] Creatinine [Mass/Vol] 1.0 mg/dL 0.4 - 1.1 mg/d L COUNTS INCLUDE 234 BEDS AT [facility] GFR/1.73 sq M.predicted MDRD (S/P/Bld) [Vol rate/Area] mL/min/{1.73_m2} [facility] Comment on above: Estimated Glomerular filtration Rate Reference Ranges: GFR, mL/min/1.73m2 >= 60 Adequate 30 - 59 Moderately decreased GFR 15 - 29 Severely decreased GFR <18 Kidney failure (or dialysis) GFR calculated using abbreviated MDRD formula. MDRD equation not suitable for patients who are under 18, have unstable creatinine concentrations Globulin (S) [Mass/Vol] 3.1 g/dL 2.9 - 3.3 g/ dL COUNTS INCLUDE 234 BEDS AT [facility] Glucose [Mass/Vol] 253 mg/dL High 70 - 126 mg/dL [facility] Potassium [Moles/Vol] 4.1 mmol/L COUNTS INCLUDE 234 BEDS AT [facility] Protein [Mass/Vol] 7.0 g/dL 6.4 - 8.3 g/dL [facility] Sodium [Moles/Vol] 137 mmol/L [facility] Urea nitrogen [Mass/Vol] 33 mg/dL High 7 - 22 mg/d L COUNTS INCLUDE 234 BEDS AT [facility] LACTATE, BLOODon 06-06-2019 Lactate [Moles/Vol] 2.2 mmol/L 0.5 - 2.2 mmol/L COUNTS INCLUDE 234 BEDS AT [facility] LIPASEon 06-06-2019 Lipase [Catalytic activity/Vol] 252 U/L High 22 - 51 U/L COUNTS INCLUDE 234 BEDS AT [facility] Otheron 06-06-2019 Interpretation and review of laboratory results Abnormal COUNTS INCLUDE 234 BEDS AT [facility] Interpretation and review of laboratory results Abnormal COUNTS INCLUDE 234 BEDS AT [facility] POCT GLUCOSEon 06-06-2019 Glucose [Mass/Vol] 220 mg/dL High 70 - 126 mg/dL [facility] Interpretation and review of laboratory results Abnormal COUNTS INCLUDE 234 BEDS AT [facility] U/A WITH MICROSCOPICon 06-06 Bacteria LM Ql (Urine sed) NONE SEEN NONE SEEN COUNTS INCLUDE 234 BEDS AT [facility] C & S INDICATED NO NO COUNTS INCLUDE 234 BEDS AT [facility] Casts LM.LPF (Urine sed) [#/Area] NONE SEEN NO NE SEEN /lpf COUNTS INCLUDE 234 BEDS AT [facility] Epithelial cells.squamous LM .HPF (Urine sed) [#/Area] NONE SEEN NONE SEEN /hpf COUNTS INCLUDE 234 BEDS AT [facility] Mucus Ql (Urine sed) NONE SEEN NONE SEEN COUNTS INCLUDE 234 BEDS AT [facility] RBC LM.HPF (Urine sed) [#/Area] NONE SEEN NONE SEEN /hpf COUNTS INCLUDE 234 BEDS AT [facility] Unidentified crystals LM Ql (Urine sed) NONE SEEN NONE SEEN COUNTS INCLUDE 234 BEDS AT [facility] WBC LM.HPF (Urine sed) [#/Area] NONE SEEN COUNTS INCLUDE 234 BEDS AT [facility] URINALYSIS WITH REFLEX CULTU REon 06-06-2019 Appearance (U) CLEAR CLEAR [facility] BILIRUBIN, URINE DIPSTICK Negative NEGATIVE COUNTS INCLUDE 234 BEDS AT [facility] BLOOD, URINE DIPSTICK Negative NEGATIVE COUNTS INCLUDE 234 BEDS AT [facility] Color (U) YELLOW YELLOW [facility] GLUCOSE, URINE DIPSTICK 100 mg/dL NEGATIVE [facility] KETONES, URINE DIPSTICK Negative NEGATIVE mg/ dL [facility] [facility] LEUKOCYTE ESTERASE, URINE DIPSTK Negative NEG ATIVE [facility] [facility] Microscopic observation LM Nom (Urine sed) YES NO [facility] [facility] Nitrate Ql (U) Negative NEGATIVE [facility] PH, URINE DIPSTICK 5.5 [facility] Protein (U) [Mass/Vol] TRACE NEGATIVE mg/d L [place] [facility] SPECIFIC GRAVITY, URINE DIPSTICK 1.025 [place] [facility] UROBILINOGEN, URINE DIPSTICK 0.2 [facility] [facility] XR CHEST AP PORTABLEon 06-06 Impression: Normal e xam. Electronically Signed By: Nadeem Mercado M.D. on Jun 06 2019 11:49:26:900PM [place] [facility] Patient Name: JUSTICE ARANDA Patient NRM: [id number] Patient : 1970 Examination:XR CHEST AP PORTABLE Date of Exam: 06/06/2019 Ordering Provider: IVETT FAN Relevant Clinical Information:Fever x 4 days, cough, no surgery, social smoker, no previous chest xray NUMBER OF VIEWS:1 SINGLE VIEW CHEST XRAY COMPARISON: None TECHNIQUE: Single AP view of the chest. Clinical History: Fever x 4 days, cough, no surgery, social smoker, no previous chest xray Findings: Normal cardiomediastinal silhouette. No consolidation, effusion or pnuemothorax. Osseous structures normal. [place] [facility] User, Interfaces - 0 06/06/2019 11:49 PM EDT Patient Name: JUSTICE ARANDA Patient NRM: [id number] Patient : 1970 Examination:XR CHEST AP PORTABLE Date of Exam: 06/06/2019 Ordering Provider: IVETT FAN Relevant Clinical Information:Fever x 4 days, cough, no surgery, social smoker, no previous chest xray NUMBER OF VIEWS:1 SINGLE VIEW CHEST XRAY COMPARISON: None TECHNIQUE: Single AP view of the chest. Clinical History: Fever x 4 days, cough, no surgery, social smoker, no previous chest xray Findings: Normal cardiomediastinal silhouette. No consolidation, effusion or pnuemothorax. Osseous structures normal. IMPRESSION Impression: Normal exam. Electronically Signed By: Nadeem Mercado M.D. on Jun 06 2019 11:49:26:900PM [facility] Otheron 06-01-2019 Patient Name: JUSTICE ARANDA Patient NRM: [id number] Patient : 1970 Examination:XR ELBOW RIGHT 3+ VIEWS Date of Exam: 06/01/2019 Ordering Provider: HANG WALTER Relevant Clinical Information:No previous Twisted arm by another person last night NUMBER OF VIEWS:1 HISTORY : No previous Twisted arm by another person last night RIGHT ELBOW : Examination reveals mild soft tissue swelling with no definite evidence of fracture or dislocation. Electronically Signed By: Dr. Eliu Mckeon MD. on Jun 01 2019 3:53:18:820PM [facility] User, Interfaces - 0 06/01/2019 3:53 PM EDT Patient Name: JUSTICE ARANDA Patient NRM: [id number] Patient : 1970 Examination:XR ELBOW RIGHT 3+ VIEWS Date of Exam: 06/01/2019 Ordering Provider: HANG WALTER Relevant Clinical Information:No previous Twisted arm by another person last night NUMBER OF VIEWS:1 HISTORY : No previous Twisted arm by another person last night RIGHT ELBOW : Examination reveals mild soft tissue swelling with no definite evidence of fracture or dislocation. Electronically Signed By: Dr. Eliu Mckeon MD. on Jun 01 2019 3:53:18:820PM [place] [facility] ACETAMINOPHEN LEVELon 2018 Acetaminophen [Mass/Vol] <10 10 - 30 ug/ mL COUNTS INCLUDE 234 BEDS AT [facility] ALCOHOL (ETHANOL),BLOODon Ethanol [Mass/Vol] 243 mg/dL High 0 - 10 mg/dL [place] [facility] [facility] Comment on above: ETOH: % = MG/DL DIVIDED BY 1000 Interpretation and review of laboratory results Abnormal [place] [facility] CBC, EDIF, PLATELETon 2018 Basophils/100 WBC (Bld) 1.0 % 0 - 3 % V [facility] Eosinophils/100 WBC (Bld) 0.7 % 0 - 4 % COUNTS INCLUDE 234 BEDS AT [facility] Erythrocyte distribution wid th (RBC) [Ratio] 12.4 % 11.5 - 14.5 % COUNTS INCLUDE 234 BEDS AT [facility] Hematocrit (Bld) [Volume fraction] 38.9 % Low 4 2 - 52 % COUNTS INCLUDE 234 BEDS AT [facility] Hemoglobin (Bld) [Mass/Vol] 13.9 g/dL Low 14 - 18 g/dL COUNTS INCLUDE 234 BEDS AT [facility] Interpretation and review of laboratory results Abnormal [facility] Lymphocytes/100 WBC (Bld) 26.5 % 20.5 - 51. 1 % COUNTS INCLUDE 234 BEDS AT [facility] MCH (RBC) [Entitic mass] 33.1 pg High 28 - 32 pg COUNTS INCLUDE 234 BEDS AT [facility] MCHC (RBC) [Mass/Vol] 35.7 g/dL 33 - 37 g/dL [facility] MCV (RBC) [Entitic vol] 92.6 fL 80 - 94 fL [facility] Monocytes/100 WBC (Bld) 5.4 % 0 - 13 % [facility] Neutrophils/100 WBC (Bld) 66.4 % 42.2 - 75. 2 % COUNTS INCLUDE 234 BEDS AT [facility] Platelets (Bld) [#/Vol] 144 10*3/uL COUNTS INCLUDE 234 BEDS AT [facility] RBC (Bld) [#/Vol] 4.20 10*6/uL Low [facility] SCAN SLIDE NO NO [facility] H WBC (Bld) [#/Vol] 5.4 10*3/uL [facility] COMPREHENSIVE METABOLIC PROF [facility] Giss[place] 05-31-2019 Albumin BCG dye [Mass/Vol] 3.8 g/dL 3.5 - 5 g /dL COUNTS INCLUDE 234 BEDS AT [facility] Albumin/Globulin [Mass ratio] 1.1 {ratio} Low COUNTS INCLUDE 234 BEDS AT [facility] ALP [Catalytic activity/Vol] 55 U/L 38 - 12 6 U/L COUNTS INCLUDE 234 BEDS AT [facility] ALT No additional P-5'-P [Catalytic activity/Vol] 25 U/L 10 - 40 U/L [facility] Anion gap [Moles/Vol] 14.5 mmol/L [facility] AST [Catalytic activity/Vol] 22 U/L 10 - 42 U/L COUNTS INCLUDE 234 BEDS AT [facility] Bilirubin [Mass/Vol] 0.9 mg/dL 0.3 - 1.2 mg/dL COUNTS INCLUDE 234 BEDS AT [facility] Calcium [Mass/Vol] 8.3 mg/dL Low 8.4 - 10.2 mg/dL COUNTS INCLUDE 234 BEDS AT [facility] Chloride [Moles/Vol] 100 mmol/L COUNTS INCLUDE 234 BEDS AT [facility] CO2 [Moles/Vol] 22 mmol/L COUNTS INCLUDE 234 BEDS AT [facility] Creatinine [Mass/Vol] 0.8 mg/dL 0.4 - 1.1 mg/d L COUNTS INCLUDE 234 BEDS AT [facility] GFR/1.73 sq M.predicted MDRD (S/P/Bld) [Vol rate/Area] mL/min/{1.73_m2} [facility] Comment on above: Estimated Glomerular filtration Rate Reference Ranges: GFR, mL/min/1.73m2 >= 60 Adequate 30 - 59 Moderately decreased GFR 15 - 29 Severely decreased GFR <18 Kidney failure (or dialysis) GFR calculated using abbreviated MDRD formula. MDRD equation not suitable for patients who are under 18, have unstable creatinine concentrations Globulin (S) [Mass/Vol] 3.4 g/dL High 2.9 - 3.3 g/ dL [facility] [facility] Glucose [Mass/Vol] 208 mg/dL High 70 - 126 mg/dL [facility] Potassium [Moles/Vol] 3.5 mmol/L [facility] [facility] Protein [Mass/Vol] 7.2 g/dL 6.4 - 8.3 g/dL [facility] Sodium [Moles/Vol] 133 mmol/L Low [place] [facility] Urea nitrogen [Mass/Vol] 13 mg/dL 7 - 22 mg/d L [place] [facility] DRUGS OF ABUSE PROFILE, URIN [place] 05-31-2019 Acetaminophen+Phenacetin Screen Ql (U) Negative NEG COUNTS INCLUDE 234 BEDS AT [facility] Amphetamine cutoff Screen (U) [Mass/Vol] Negative NEG COUNTS INCLUDE 234 BEDS AT [facility] Barbiturate Negative NEG [facility] Benzodiazepines Ql (U) Negative NEG [facility] Cannabinoids Screen Ql (U) Negative NEG COUNTS INCLUDE 234 BEDS AT [facility] Cocaine Metabolite Negative NEG [place] [facility] Methadone Confirm (Hu) [Mass/Vol] Negative N [facility] Methamphetamine Confirm (Hu) [Mass/Vol] Negative NEG COUNTS INCLUDE 234 BEDS AT [facility] Opiates Ql (U) Negative NEG [facility] Phencyclidine Ql (U) Negative NEG COUNTS INCLUDE 234 BEDS AT [facility] TRICYCLIC ANTIDEPRESSANTS, URINE Negative NEG COUNTS INCLUDE 234 BEDS AT [facility] Comment on above: APAP- CUT-OFF CONCEN TRATION IS 5 NG/ML AMP - CUT-OFF CONCENTRATION IS 1000 NG/ML mAMP- CUT-OFF CONCENTRATION IS 1000 NG/ML BAR - CUT-OFF CONCENTRATION IS 300 NG/ML BZO - CUT-OFF CONCENTRATION IS 300 NG/ML MTD - CUT-OFF CONCENTRATION IS 300 NG/ML TONYA - CUT-OFF CONCENTRATION IS 300 NG/ML OPI - CUT-OFF CONCENTRATION IS 300 NG/ML PCP - CUT-OFF CONCENTRATION IS 25 NG/ML THC - CUT-OFF CONCENTRATION IS 50 NG/ML TCA - CUT-OFF CONCENTRATION IS 1000 NG/ML SCREENING TEST TO BE USED FOR MEDICAL PURPOSES ONLY MAGNESIUMon 05-31-2019 Magnesium [Mass/Vol] 1.7 mg/dL 1.7 - 2.8 mg/dL [place] [facility] [facility] Otheron 05-31-2019 Interpretation and review of laboratory results Abnormal COUNTS INCLUDE 234 BEDS AT [facility] SALICYLATE LEVELon 9 Salicylates [Mass/Vol] mg/dL Low 10 - 30 mg/dL COUNTS INCLUDE 234 BEDS AT [facility] TSHon 05-31-2019 TSH Qn 2.466 m[IU]/L [facility] URINALYSIS W/ MICRO W/ REFLE X C AND Son 05-31-2019 Appearance (U) CLEAR CLEAR [facility] Bacteria LM Ql (Urine sed) NONE SEEN NONE SEEN COUNTS INCLUDE 234 BEDS AT [facility] BILIRUBIN, URINE DIPSTICK Negative NEGATIVE COUNTS INCLUDE 234 BEDS AT [facility] BLOOD, URINE DIPSTICK Negative NEGATIVE [place] [facility] C & S INDICATED NO NO COUNTS INCLUDE 234 BEDS AT [facility] Casts LM.LPF (Urine sed) [#/Area] PRESENT NO NE SEEN /lpf [place] [facility] Color (U) YELLOW YELLOW [facility] Epithelial cells.squamous LM .HPF (Urine sed) [#/Area] NONE SEEN NONE SEEN /hpf COUNTS INCLUDE 234 BEDS AT [facility] Fine Granular Casts LM.LPF ( Urine sed) [#/Area] 0-2 NONE SEEN /lpf COUNTS INCLUDE 234 BEDS AT [facility] GLUCOSE, URINE DIPSTICK Negative NEGATIVE mg/ dL COUNTS INCLUDE 234 BEDS AT [facility] Hyaline casts (Urine sed) [#/Area] 0-2 COUNTS INCLUDE 234 BEDS AT [facility] KETONES, URINE DIPSTICK TRACE NEGATIVE mg/ dL COUNTS INCLUDE 234 BEDS AT [facility] LEUKOCYTE ESTERASE, URINE DIPSTK Negative NEG ATIVE COUNTS INCLUDE 234 BEDS AT [facility] Mucus Ql (Urine sed) 1+ THREADS NONE SEEN COUNTS INCLUDE 234 BEDS AT [facility] Nitrate Ql (U) Negative NEGATIVE [facility] PH, URINE DIPSTICK 5.5 [facility] Protein (U) [Mass/Vol] 30 mg/dL NEGATIVE [facility] RBC LM.HPF (Urine sed) [#/Area] 0-2 NONE SEEN /hpf COUNTS INCLUDE 234 BEDS AT [facility] SPECIFIC GRAVITY, URINE DIPSTICK 1.010 COUNTS INCLUDE 234 BEDS AT [facility] Unidentified crystals LM Ql (Urine sed) NONE SEEN NONE SEEN COUNTS INCLUDE 234 BEDS AT [facility] UROBILINOGEN, URINE DIPSTICK 0.2 COUNTS INCLUDE 234 BEDS AT [facility] WBC LM.HPF (Urine sed) [#/Area] 0-2 [facility] XR SHOULDER RIGHT MIN 2 VIEW Son 05-31-2019 User, Interfaces - 0 05/31/2019 10:35 PM EDT Patient Name: JUSTICE ARANDA Patient NRM: [id number] Patient : 1970 Examination:XR SHOULDER RIGHT MIN 2 VIEWS Date of Exam: 05/31/2019 Ordering Provider: IVETT FAN Relevant Clinical Information:Pt arm was twisted behind back today c/o of right shoulder pain NUMBER OF VIEWS:1 XRAY HISTORY: Right shoulder pain post-twisting injury. COMPARISON: No comparison images available. TECHNIQUE: 3 views right shoulder FINDINGS: There is no fracture or misalignment seen. The imaged joints are intact. There is normal bone mineralization. IMPRESSION IMPRESSION: No fracture or misalignment is seen. If symptoms persist, CT and/or MRI may provide further evaluation. Electronically Signed By: Shane Guaman MD. on May 31 2019 10:35:11:040PM [facility] Patient Name: JUSTICE ARANDA Patient NRM: [id number] Patient : 1970 Examination:XR SHOULDER RIGHT MIN 2 VIEWS Date of Exam: 05/31/2019 Ordering Provider: IVETT FAN Relevant Clinical Information:Pt arm was twisted behind back today c/o of right shoulder pain NUMBER OF VIEWS:1 XRAY HISTORY: Right shoulder pain post-twisting injury. COMPARISON: No comparison images available. TECHNIQUE: 3 views right shoulder FINDINGS: There is no fracture or misalignment seen. The imaged joints are intact. There is normal bone mineralization. [facility] IMPRESSION: No fract ure or misalignment is seen. If symptoms persist, CT and/or MRI may provide further evaluation. Electronically Signed By: Shane Guaman MD. on May 31 2019 10:35:11:040PM [facility] ACETONE, SERUM, KETONESon KETONES,SERUM Negative NEGATIVE [facility] CBC, EDIF, PLATELETon 2018 Basophils/100 WBC (Bld) 1.1 % 0 - 3 % V [facility] Eosinophils/100 WBC (Bld) 2.1 % 0 - 4 % [facility] Erythrocyte distribution wid th (RBC) [Ratio] 12.8 % 11.5 - 14.5 % [place] [facility] Hematocrit (Bld) [Volume fraction] 40.0 % Low 4 2 - 52 % COUNTS INCLUDE 234 BEDS AT [facility] Hemoglobin (Bld) [Mass/Vol] 14.3 g/dL 14 - 18 g/dL COUNTS INCLUDE 234 BEDS AT [facility] Lymphocytes/100 WBC (Bld) 33.1 % 20.5 - 51. 1 % COUNTS INCLUDE 234 BEDS AT [facility] MCH (RBC) [Entitic mass] 33.2 pg High 28 - 32 pg COUNTS INCLUDE 234 BEDS AT [facility] MCHC (RBC) [Mass/Vol] 35.7 g/dL 33 - 37 g/dL [facility] MCV (RBC) [Entitic vol] 92.9 fL 80 - 94 fL [facility] Monocytes/100 WBC (Bld) 7.2 % 0 - 13 % [facility] Neutrophils/100 WBC (Bld) 56.5 % 42.2 - 75. 2 % COUNTS INCLUDE 234 BEDS AT [facility] Platelets (Bld) [#/Vol] 147 10*3/uL COUNTS INCLUDE 234 BEDS AT [facility] RBC (Bld) [#/Vol] 4.31 10*6/uL Low [facility] SCAN SLIDE NO NO [facility] H WBC (Bld) [#/Vol] 4.6 10*3/uL Low [facility] CKon 05-26-2019 CK [Catalytic activity/Vol] 125 U/L 38 - 174 U/L COUNTS INCLUDE 234 BEDS AT [facility] COMPREHENSIVE METABOLIC PANE Rud[place] 05-26-2019 Albumin BCG dye [Mass/Vol] 3.7 g/dL 3.5 - 5 g /dL COUNTS INCLUDE 234 BEDS AT [facility] Albumin/Globulin [Mass ratio] 1.1 {ratio} Low COUNTS INCLUDE 234 BEDS AT [facility] ALP [Catalytic activity/Vol] 53 U/L 38 - 12 6 U/L COUNTS INCLUDE 234 BEDS AT [facility] ALT No additional P-5'-P [Catalytic activity/Vol] 19 U/L 10 - 40 U/L [facility] AST [Catalytic activity/Vol] 21 U/L 10 - 42 U/L COUNTS INCLUDE 234 BEDS AT [facility] Bilirubin [Mass/Vol] 1.1 mg/dL 0.3 - 1.2 mg/dL COUNTS INCLUDE 234 BEDS AT [facility] Calcium [Mass/Vol] 8.7 mg/dL 8.4 - 10.2 mg/dL COUNTS INCLUDE 234 BEDS AT [facility] Chloride [Moles/Vol] 106 mmol/L COUNTS INCLUDE 234 BEDS AT [facility] CO2 [Moles/Vol] 25 mmol/L COUNTS INCLUDE 234 BEDS AT [facility] Creatinine [Mass/Vol] 0.8 mg/dL 0.4 - 1.1 mg/d L COUNTS INCLUDE 234 BEDS AT [facility] GFR/1.73 sq M.predicted MDRD (S/P/Bld) [Vol rate/Area] mL/min/{1.73_m2} [facility] Comment on above: Estimated Glomerular filtration Rate Reference Ranges: GFR, mL/min/1.73m2 >= 60 Adequate 30 - 59 Moderately decreased GFR 15 - 29 Severely decreased GFR <18 Kidney failure (or dialysis) GFR calculated using abbreviated MDRD formula. MDRD equation not suitable for patients who are under 18, have unstable creatinine concentrations Globulin (S) [Mass/Vol] 3.3 g/dL 2.9 - 3.3 g/ dL COUNTS INCLUDE 234 BEDS AT [facility] Glucose [Mass/Vol] 168 mg/dL High 70 - 126 mg/dL [facility] Potassium [Moles/Vol] 4.1 mmol/L COUNTS INCLUDE 234 BEDS AT [facility] Protein [Mass/Vol] 7.0 g/dL 6.4 - 8.3 g/dL [facility] Sodium [Moles/Vol] 138 mmol/L [facility] Urea nitrogen [Mass/Vol] 14 mg/dL 7 - 22 mg/d [facility] DRUGS OF ABUSE PROFILE, URIN [place] 05-26-2019 Acetaminophen+Phenacetin Screen Ql (U) Negative NEG COUNTS INCLUDE 234 BEDS AT [facility] Amphetamine cutoff Screen (U) [Mass/Vol] Negative NEG COUNTS INCLUDE 234 BEDS AT [facility] Barbiturate Negative NEG [facility] Benzodiazepines Ql (U) Negative NEG [facility] Cannabinoids Screen Ql (U) Negative NEG COUNTS INCLUDE 234 BEDS AT [facility] Cocaine Metabolite Negative NEG [facility] Methadone Confirm (Hu) [Mass/Vol] Negative N [facility] Methamphetamine Confirm (Hu) [Mass/Vol] Negative NEG COUNTS INCLUDE 234 BEDS AT [facility] Opiates Ql (U) Negative NEG [facility] Phencyclidine Ql (U) Negative NEG COUNTS INCLUDE 234 BEDS AT [facility] TRICYCLIC ANTIDEPRESSANTS, URINE Negative NEG COUNTS INCLUDE 234 BEDS AT [facility] Comment on above: APAP- CUT-OFF CONCEN TRATION IS 5 NG/ML AMP - CUT-OFF CONCENTRATION IS 1000 NG/ML mAMP- CUT-OFF CONCENTRATION IS 1000 NG/ML BAR - CUT-OFF CONCENTRATION IS 300 NG/ML BZO - CUT-OFF CONCENTRATION IS 300 NG/ML MTD - CUT-OFF CONCENTRATION IS 300 NG/ML TONYA - CUT-OFF CONCENTRATION IS 300 NG/ML OPI - CUT-OFF CONCENTRATION IS 300 NG/ML PCP - CUT-OFF CONCENTRATION IS 25 NG/ML THC - CUT-OFF CONCENTRATION IS 50 NG/ML TCA - CUT-OFF CONCENTRATION IS 1000 NG/ML SCREENING TEST TO BE USED FOR MEDICAL PURPOSES ONLY ECGon 05-26-2019 Leilani Monge MD 10:57 AM ECG Procedure Date: 05/26/2019 Procedure Start: 09:59 Performed by: Leilani Monge MD Authorized by: Leilani Monge MD [place] Protocol Immediately prior to procedure a time out was called to verify the correct patient, procedure, equipment, passport support manager and site/side marked as required. Additional Notes EKG sinus bradycardia with ventricular rate of 56 bpm, NC interval 186 ms, QRS duration 82 ms, QT/QTc 430/414 ms. Inferior lead changes. [facility] MAGNESIUMon 05-26-2019 Magnesium [Mass/Vol] 1.6 mg/dL Low 1.7 - 2.8 mg/dL [facility] Otheron 05-26-2019 Interpretation and review of laboratory results Abnormal [facility] PH VENOUSon 05-26-2019 pH (BldV) 7.360 [pH] [facility] PROTIME-INRon 05-26-2019 INR Coag (PPP) [Relative time] 1.0 {INR} [facility] Comment on above: INR: ------INDICATION INR Ref Range DVT, PE, AF, AMI, tissue heart valve 2.0 - 3.0 Mechanical prosthetic valves 2.5 - 3.5 PT Coag (PPP) [Time] 11.7 s [facility] TROPONINon 05-26-2019 Troponin I.cardiac [Mass/Vol] ng/mL 0 - 0. 06 ng/mL [facility] Comment on above: TROPONIN REFERENCE R ANGES: <0.06 Normal >0.06 Elevated consistent with myocardial damage (10%CV) Cardiac troponin values can be elevated by many disease states in addition to acute ischemia. These include, but are not limited to; chronic renal failure, CHF, CVA, pulmonary embolus, COPD, myocardial trauma/surgery, myocarditis, pericarditis, tachycardia, aortic dissection, amyloidosis, sepsis and strenuous exercise. Serial measurement of troponin is strongly recommended as a first step in determining whether a low level elevation represents an acute or chronic condition. U/A WITH MICROSCOPICon 05-26 Bacteria LM Ql (Urine sed) NONE SEEN NONE SEEN [place] [facility] C & S INDICATED NO NO [place] [facility] Casts LM.LPF (Urine sed) [#/Area] NONE SEEN NO NE SEEN /lpf [place] [facility] Epithelial cells.squamous LM .HPF (Urine sed) [#/Area] NONE SEEN NONE SEEN /hpf [place] [facility] Mucus Ql (Urine sed) 1+ THREADS NONE SEEN [place] [facility] RBC LM.HPF (Urine sed) [#/Area] 0-2 NONE SEEN /hpf [place] [facility] Unidentified crystals LM Ql (Urine sed) NONE SEEN NONE SEEN [place] [facility] WBC LM.HPF (Urine sed) [#/Area] NONE SEEN [place] [facility] URINALYSIS WITH REFLEX CULTU REon 05-26-2019 Appearance (U) CLEAR CLEAR BLOWING [facility] BILIRUBIN, URINE DIPSTICK Negative NEGATIVE COUNTS INCLUDE 234 BEDS AT THE [facility] BLOOD, URINE DIPSTICK Negative NEGATIVE [place] [facility] Color (U) YELLOW YELLOW [facility] GLUCOSE, URINE DIPSTICK 100 mg/dL NEGATIVE V [facility] KETONES, URINE DIPSTICK Negative NEGATIVE mg/ dL COUNTS INCLUDE 234 BEDS AT THE [facility] LEUKOCYTE ESTERASE, URINE DIPSTK Negative NEG ATIVE [place] [facility] Microscopic observation LM Nom (Urine sed) YES NO [place] [facility] Nitrate Ql (U) Negative NEGATIVE [facility] PH, URINE DIPSTICK 5.0 [facility] Protein (U) [Mass/Vol] Negative NEGATIVE mg/d L [place] [facility] SPECIFIC GRAVITY, URINE DIPSTICK >=1.030 [place] [facility] UROBILINOGEN, URINE DIPSTICK 0.2 [place] [facility] CBC, EDIF, PLATELETon 2018 Basophils/100 WBC (Bld) 1.0 % 0 - 3 % V [facility] Eosinophils/100 WBC (Bld) 2.3 % 0 - 4 % [place] [facility] Erythrocyte distribution wid th Ratio (RBC) 12.3 % 11.5 - 14.5 % [place] [facility] Hematocrit Volume Fraction (Bld) 39.2 % Low 42 - 52 % [facility] Hemoglobin mass conc (Bld) 14.2 g/dL 14 - 18 g /dL COUNTS INCLUDE 234 BEDS AT THE [facility] Interpretation and review of laboratory results Abnormal [facility] Lymphocytes/100 WBC (Bld) 34.9 % 20.5 - 51. 1 % COUNTS INCLUDE 234 BEDS AT THE [facility] MCH Entitic mass (RBC) 33.4 pg High 28 - 32 pg [facility] MCHC mass conc (RBC) 36.1 g/dL 33 - 37 g/dL [facility] MCV Entitic volume (RBC) 92.3 fL 80 - 94 fL COUNTS INCLUDE 234 BEDS AT THE [facility] Monocytes/100 WBC (Bld) 6.3 % 0 - 13 % V [facility] Neutrophils/100 WBC (Bld) 55.5 % 42.2 - 75. 2 % COUNTS INCLUDE 234 BEDS AT THE [facility] Platelets #/vol (Bld) 149 10*3/uL [facility] RBC #/vol (Bld) 4.25 10*6/uL Low [facility] SLIDE NO NO [facility] WBC corrected for nucl RBC A uto #/vol (Bld) 4.5 Low COUNTS INCLUDE 234 BEDS AT THE [facility] COMPREHENSIVE METABOLIC PANE Rudolph 05-03-2019 Albumin Bromocresol green (B CG) dye binding method mass conc 3.5 g/dL 3.5 - 5 g/dL COUNTS INCLUDE 234 BEDS AT THE [facility] Albumin/Globulin mass ratio 1.1 {ratio} Low COUNTS INCLUDE 234 BEDS AT THE [facility] ALP enzyme act/vol 59 U/L 38 - 126 U/L COUNTS INCLUDE 234 BEDS AT THE [facility] ALT No additional P-5'-P enz yme act/vol 25 U/L 10 - 40 U/L COUNTS INCLUDE 234 BEDS AT THE [facility] AST enzyme act/vol 21 U/L 10 - 42 U/L [facility] Bilirubin mass conc 0.8 mg/dL 0.3 - 1.2 mg/dL COUNTS INCLUDE 234 BEDS AT THE [facility] Calcium mass conc 8.2 mg/dL Low 8.4 - 10.2 mg/dL [facility] Chloride molar conc 104 mmol/L [facility] CO2 molar conc 25 mmol/L [facility] Creatinine mass conc 0.7 mg/dL 0.4 - 1.1 mg/dL COUNTS INCLUDE 234 BEDS AT THE [facility] GFR/1.73 sq M.predicted MDRD vol rate/area mL/min/{1.73_m2} COUNTS INCLUDE 234 BEDS AT THE [facility] Comment on above: Estimated Glomerular filtration Rate Reference Ranges: GFR, mL/min/1.73m2 >= 60 Adequate 30 - 59 Moderately decreased GFR 15 - 29 Severely decreased GFR <18 Kidney failure (or dialysis) GFR calculated using abbreviated MDRD formula. MDRD equation not suitable for patients who are under 18, have unstable creatinine concentrations Globulin mass conc (S) 3.2 g/dL 2.9 - 3.3 g/d L COUNTS INCLUDE 234 BEDS AT THE [facility] Glucose mass conc 208 mg/dL High 70 - 126 mg/dL [place] [facility] Interpretation and review of laboratory results Abnormal [facility] Potassium molar conc 3.8 mmol/L COUNTS INCLUDE 234 BEDS AT THE [facility] Protein mass conc 6.7 g/dL 6.4 - 8.3 g/dL COUNTS INCLUDE 234 BEDS AT THE [facility] Sodium molar conc 137 mmol/L [facility] Urea nitrogen mass conc 14 mg/dL 7 - 22 mg/dL [place] [facility] CT HEAD WITHOUT CONTRASTon 0 05-03-2019 User, Interfaces - 0 05/03/2019 9:33 AM EDT Patient Name: JUSTICE ARANDA JR. Patient Patient : 1970 Examination: VANW CT HEAD WITHOUT CONTRAST Date of Exam: 05/03/2019 9:20 AM Ordering Provider: VIK MENDOSA Comparison: None Relevant Clinical Information: Weakness, headache, blurry vision past couple of days, history of stroke 2 years ago. DOSE: 664 mGy TECHNIQUE: Multiple CT transverse axial images were obtained from the base of the skull to the vertex without IV contrast. DISCUSSION: No acute intracranial hemorrhages, intracranial masses, or acute or remote infarctions are present. The white-howard matter interfaces are normally maintained. The ventricles and midline structures appear normal. The mid-brain and cerebellum appears normal. The orbital contents appear normal. The sinuses appear normally pneumatized. The skull appears normal. IMPRESSION IMPRESSION: Normal non-contrast CT head. No acute intracranial changes. [place] [employer] Patient Name: AYAZ ARANDA JR. Patient Patient : 1970 Examination: VANW CT HEAD WITHOUT CONTRAST Date of Exam: 05/03/2019 9:20 AM Ordering Provider: VIK MENDOSA Comparison: None Relevant Clinical Information: Weakness, headache, blurry vision past couple of days, history of stroke 2 years ago. DOSE: 664 mGy TECHNIQUE: Multiple CT transverse axial images were obtained from the base of the skull to the vertex without IV contrast. DISCUSSION: No acute intracranial hemorrhages, intracranial masses, or acute or remote infarctions are present. The white-howard matter interfaces are normally maintained. The ventricles and midline structures appear normal. The mid-brain and cerebellum appears normal. The orbital contents appear normal. The sinuses appear normally pneumatized. The skull appears normal. [facility] IMPRESSION: Normal n on-contrast CT head. No acute intracranial changes. U/A WITH MICROSCOPICon 05-03 Bacteria LM Ql (Urine sed) TRACE NONE SEEN [facility] C & S INDICATED NO NO [facility] Casts LM.LPF #/area (Urine sed) NONE SEEN NONE SEEN /lpf [facility] Epithelial cells.squamous LM .HPF #/area (Urine sed) 0-2 NONE SEEN /hpf [employer] Mucus Ql (Urine sed) NONE SEEN NONE SEEN [facility] RBC LM.HPF #/area (Urine sed) 0-2 NONE S EEN /hpf [facility] Unidentified crystals LM Ql (Urine sed) NONE SEEN NONE SEEN [facility] WBC LM.HPF #/area (Urine sed) 0-2 [facility] URINALYSIS WITH REFLEX CULTU REon 05-03-2019 Appearance Nom (U) CLEAR CLEAR [place] [employer] BILIRUBIN, URINE DIPSTICK Negative NEGATIVE [facility] BLOOD, URINE DIPSTICK Negative NEGATIVE [facility] Color Nom (U) YELLOW YELLOW [facility] GLUCOSE, URINE DIPSTICK 100 mg/dL NEGATIVE V [employer] KETONES, URINE DIPSTICK Negative NEGATIVE mg/ dL [facility] LEUKOCYTE ESTERASE, URINE DIPSTK Negative NEG ATIVE [facility] Microscopic observation LM Nom (Urine sed) YES NO [facility] Nitrate Ql (U) Negative NEGATIVE [facility] PH, URINE DIPSTICK 6.0 [place] [employer] Protein mass conc (U) Negative NEGATIVE mg/dL [facility] SPECIFIC GRAVITY, URINE DIPSTICK >=1.030 [facility] UROBILINOGEN, URINE DIPSTICK 0.2 COUNTS INCLUDE 234 BEDS AT THE [facility] Basic Metabolic Profon 12-29 -2018 (cont.) Normal [facility] ospital Comment on above: Result Comment: Aver age GFR for 40-49 years old: 99 mL/min/1.73sq m Chronic Kidney Disease: <60 mL/min/1.73sq m Kidney failure: <15 mL/min/1.73sq m eGFR calculated using average adult body mass. Additional eGFR calculator available at: http://www.Spotlime/multiple_crcl_2012.htm Performed By: #### C DP, BMP, TROPI #### [address] [place] [address] Anion gap [Moles/Vol] 10 mmol/L Normal 9-17 [facility] Comment on above: Performed By: #### C DP, BMP, TROPI #### [address] [place] [address] BUN/CRE Ratio 17 Normal 9-20 [facility] Comment on above: Performed By: #### C DP, BMP, TROPI #### [address] [place] [address] Calcium [Mass/Vol] 8.5 mg/dL Low 8.6-10.4 [facility] Comment on above: Performed By: #### C DP, BMP, TROPI #### [address] [place] [address] Chloride [Moles/Vol] 100 mmol/L Normal 98-107 [facility] Comment on above: Performed By: #### C DP, BMP, TROPI #### [address] [place] [address] CO2 [Moles/Vol] 27 mmol/L Normal 20-31 [facility] Comment on above: Performed By: #### C DP, BMP, TROPI #### [address] [place] [address] Creatinine [Mass/Vol] 0.84 mg/dL Normal 0.70-1.20 [facility] Comment on above: Performed By: #### C DP, BMP, TROPI #### [address] [place] [address] GFR, Amer >60 Normal >60 [facility] Comment on above: Performed By: #### C DP, BMP, TROPI #### [address] [place] [address] GFR,non Amer >60 Normal >60 [facility] Comment on above: Performed By: #### C DP, BMP, TROPI #### [address] [place] [address] Glucose [Mass/Vol] 213 mg/dL High 70-99 [facility] Comment on above: Performed By: #### C DP, BMP, TROPI #### [address] [place] [address] Potassium [Moles/Vol] 3.6 mmol/L Low 3.7-5.3 [facility] Comment on above: Performed By: #### C DP, BMP, TROPI #### [address] [place] [address] Sodium [Moles/Vol] 137 mmol/L Normal 135-144 [facility] Comment on above: Performed By: #### C DP, BMP, TROPI #### [address] [place] [address] Staging: Normal [facility] Comment on above: Result Comment: Stag e 1: Some kidney damage normal GFR Stage 2: Mild kidney damage GFR 60-89 Stage 3: Moderate kidney damage GFR 30-59 Stage 4: Severe kidney damage GFR 15-29 Stage 5: Severe kidney damage GFR <15 ESRD - chronic treatment by dialysis or transplant Performed By: #### C DP, BMP, TROPI #### [address] [place] [address] Urea nitrogen [Mass/Vol] 14 mg/dL Normal 6-20 [facility] Comment on above: Performed By: #### C DP, BMP, TROPI #### [address] [place] [address] CBC with Diffon 11-25-2018 Abs. Basophil <0.03 Normal 0.00-0.20 [facility] Comment on above: Performed By: #### C DP, BMP, TROPI #### [address] [place] [address] Abs.Imm.Granulocyte <0.03 Normal 0.00-0.30 [facility] Comment on above: Performed By: #### C ISABEL, BMP, TROPI #### [address] [place] [address] Abs.Neutrophil (Seg) 1.92 k/uL Normal 1.50-8.10 [facility] Comment on above: Performed By: #### C DP, BMP, TROPI #### [address] [place] [address] Basophils/100 WBC (Bld) 0 % Normal 0-2 [facility] Comment on above: Performed By: #### C DP, BMP, TROPI #### [address] [place] [address] Eosinophils (Bld) [#/Vol] 10*3/uL Normal 0.00-0.44 [facility] Comment on above: Performed By: #### C DP, BMP, TROPI #### [address] [place] [address] Eosinophils/100 WBC (Bld) 0 % Low 1-4 [facility] Comment on above: Performed By: #### C DP, BMP, TROPI #### [address] [place] [address] Erythrocyte distribution wid th (RBC) [Ratio] 12.9 % Normal 11.8-14.4 [facility] Comment on above: Performed By: #### C DP, BMP, TROPI #### [address] [place] [address] Hematocrit (Bld) [Volume fraction] 38.7 % Low 4 0.7-50.3 [facility] Comment on above: Performed By: #### C DP, BMP, TROPI #### [address] [place] [facility] Hemoglobin (Bld) [Mass/Vol] 13.3 g/dL Normal 13.0-17. 0 [facility] Comment on above: Performed By: #### C ISABEL, BMP, TROPI #### [address] [place] [address] Immature granulocytes (Bld) [#/Vol] 0 % Normal 0 [facility] Comment on above: Performed By: #### C DP, BMP, TROPI #### [address] [place] [address] Lymphocytes (Bld) [#/Vol] 0.85 10*3/uL Low 1.10-3.7 0 [facility] Comment on above: Performed By: #### C DP, BMP, TROPI #### [address] [place] [address] Lymphocytes/100 WBC (Bld) 25 % Normal 24-43 [facility] Comment on above: Performed By: #### C DP, BMP, TROPI #### [address] [place] [address] MCH (RBC) [Entitic mass] 32.9 pg Normal 25.2-33.5 [facility] Comment on above: Performed By: #### C DP, BMP, TROPI #### [address] [place] [address] MCHC (RBC) [Mass/Vol] 34.4 g/dL Normal 28.4-34.8 [facility] Comment on above: Performed By: #### C DP, BMP, TROPI #### [address] [place] [address] MCV (RBC) [Entitic vol] 95.8 fL Normal 82.6-102.9 [facility] Comment on above: Performed By: #### C DP, BMP, TROPI #### [address] [place] [address] Monocytes (Bld) [#/Vol] 0.58 10*3/uL Normal 0.10-1.20 [facility] Comment on above: Performed By: #### C DP, BMP, TROPI #### [address] [place] [address] Monocytes/100 WBC (Bld) 17 % High 3-12 [facility] Comment on above: Performed By: #### C DP, BMP, TROPI #### [address] [place] [address] Neutrophil (Seg) 57 % Normal 36-65 [facility] Comment on above: Performed By: #### C DP, BMP, TROPI #### [address] [place] [address] NRBC Automated 0.0 per 100 WBC Normal 0.0 [facility] Comment on above: Performed By: #### C DP, BMP, TROPI #### [address] [place] [address] Platelet mean volume (Bld) [ Entitic vol] 10.8 fL Normal 8.1-13.5 [facility] Comment on above: Performed By: #### C DP, BMP, TROPI #### [address] [place] [address] Platelets (Bld) [#/Vol] 131 10*3/uL Low 138-453 [facility] Comment on above: Performed By: #### C DP, BMP, TROPI #### [address] [place] [address] RBC (Bld) [#/Vol] 4.04 10*6/uL Low 4.21-5.77 [facility] Comment on above: Performed By: #### C DP, BMP, TROPI #### [address] [place] [address] WBC (Bld) [#/Vol] 3.4 10*3/uL Low 3.5-11.3 [facility] Comment on above: Performed By: #### C DP, BMP, TROPI #### [address] [place] [address] Flu A/B Ag Detectionon 11-25 Flu A/B Ag Detection Specimen Descriptio n .NASOPHARYNGEAL SWAB Special Requests NOT REPORTED Direct Exam POSITIVE for Influenza A Antigen NEGATIVE for Influenza B Antigen Report Status FINAL 11/24/2018 Normal [facility] Comment on above: Performed By: #### F LUAD #### [address] [place] [address] Strep Gr A Direct Agon 11-25 Strep Gr A Direct Ag Specimen Descriptio n .THROAT Special Requests NOT REPORTED Direct Exam Rapid Strep A negative. A negative Rapid Group A Strep Screen result does not rule out the possibility of Group A Streptococci in the specimen. A Group A Strep DNA test is available upon request. Report Status FINAL 11/24/2018 Normal [facility] Comment on above: Performed By: #### S GPA #### [address] [place] [address] Troponinon 11-25-2018 Troponin I.cardiac [Mass/Vol] ng/mL Normal <0.03 [facility] Comment on above: Result Comment: Trop onin T results cannot be compared to Troponin-I results. Performed By: #### C DP, BMP, TROPI #### [address] [place] [address] Troponin I.cardiac [Mass/Vol] Normal [facility] Comment on above: Result Comment: Refe rence Range: <0.03 Within reference range. 0.03-0.09 Possible myocardial damage. Repeat at appropriate intervals to rule out chronic elevation. >= 0.10 Indicative of myocardial damage. Patients with high levels of Biotin oral intake (i.e >5mg/day) may have falsely decreased Troponin T levels. Samples collected within 8 hours of biotin intake may require additional information for diagnosis. Performed By: #### C DP, BMP, TROPI #### [address] [place] [address] XR CHEST PORTABLEon 11-25-20 XR CHEST PORTABLE EXAMINATION: SINGLE XRAY VIEW OF THE CHEST 11/24/2018 10:00 pm COMPARISON: None. HISTORY: ORDERING SYSTEM PROVIDED HISTORY: chest pain TECHNOLOGIST PROVIDED HISTORY: chest pain FINDINGS: The lungs are without acute focal process. There is no effusion or pneumothorax. The cardiomediastinal silhouette is without acute process. The osseous structures are without acute process. IMPRESSION: No acute process. Interpreted by: Montana De La Garza MD Signed by: Montana De La Garza MD 11/24/18 Final result Normal [facility] l CBC with Diffon 11-24-2018 Auto Diff Performed NOT REPORTED Normal [facility] Comment on above: Performed By: #### C DP, BMP, TROPI #### [address] [place] [address] Platelets (Bld) [#/Vol] NOT REPORTED Normal [facility] Comment on above: Performed By: #### C DP, BMP, TROPI #### [address] [place] [address] RBC morphology finding Nom (Bld) NOT REPORTED Normal [facility] Comment on above: Performed By: #### C DP, BMP, TROPI #### [address] [place] [address] WBC Morphology NOT REPORTED Normal [facility] Comment on above: Performed By: #### C DP, BMP, TROPI #### [address] [place] [address] Troponinon 11-24-2018 Troponin I.cardiac [Mass/Vol] NOT REPORTED Normal 0-22 [facility] Comment on above: Performed By: #### C DP, BMP, TROPI #### [address] [place] [address] CNOVon 10-09-2018 CNOV Office Visit (UROLMN ) JUSTICE ARANDA ([id number]) 1970 M Date Time Provider Department 10/09/18 1:30 PM KARY MENDEZ UROFRANCHESCAN During your visit today, we recorded the following information about you: Temperature Pulse Blood pressure 97.5 degrees 94/minute 135/81 Kary Mendez MD 10/09/2018 3:29 PM Signed [facility] NEW PATIENT HISTORY AND PHYSICAL EXAM PATIENT INFO: Justice Aranda 48 year old REFERRING M.D.: Dennis Mason MD [address] [facility] [address] HISTORY 48 year old male here for an ED consult. He has a med history of HTN, DM- recently started on Metformin and just began checking blood glucose. He had been in shelter, reports sustaining a head injury Sep 2016. This resulted in a left sided blood clot that was not diagnosed until 6 months after the injury. He reports some concerns for slight Right sided upper extremity deficits. He has some difficulty remembering events and reporting details. His girlfriend is here assisting today. He reports 1 involuntary erection this past year. Without medication, his erection is about 30%. He reports being able to ejaculate an average of less than 75% of the time in the last year He reports that in 2014 he had tried 100-300 mg of Viagra, however; this provides a half erection. His home [facility] urologist reported that injections were not a good option as him and his partner are active 5 x a week- more injections than he should have . PSA and JM followed by hometown providers. MEDICATIONS: Current Outpatient Prescriptions: metFORMIN ER (GLUCOPHAGE XR) 500 mg 24 hr tablet Take 1,000 mg by mouth every morning. No current facility-administered medications for this visit. 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 Social History Marital status: Single Spouse name: Years of education: Number of children: Social History Main Topics Smoking status: Current Some Day Smoker Packs/day: 0.00 Years: 0.00 Types: Cigars Smokeless tobacco: Never Used Alcohol use: Yes 9.0 oz/week Cans of Beer (12oz): 6 per week GENERAL ROS: Constitutional: positive Some confusion, brain injury Eyes: negative Ear Nose and Throat: negative Cardiovascular: positive HTN in past Respiratory: negative Gastrointestinal: negative Musculoskeletal: negative Integumentary: negative Neurological: positive brain injury Psychiatric: positive brain injury Endocrine: positive Diabetes Hematologic/Lymphatic: negative Allergic/Immunologic: negative : Force of Stream:good NOCTURIA: 1 Day Time Frequency: 5 Hesitancy: no Intermittency: no Incomplete Emptying: no Post void Dribbling: no Urinary Retention Hx: no Double Voiding: no Urgency: no Dysuria: no Incontinence history: no HISTORY OF FAMILY CANCER:no gross hematuria history: no Erectile dysfunction: yes UTI Hx: no Nieves Eaton RN BSN STAFF NOTE: This consult was requested by Dr. Mason for an opinion regarding Erectile Dysfunction, and my final recommendations will be communicated to the requesting health care provider by way of the shared medical record for internal providers or letter via the [employer] for external providers. HPI: Girlfriend present during visit Reports normal libido and ejaculation Reports that his last erection was straight Did not respond to oral medication of Viagra Erection is good enough for penetration, that lasts up to an hour Reports that rigidity is decreased to 5/10 Girlfriend reports that mood influences his erection rigidity; performance anxiety Patient recently diagnosed with Diabetes Physical Exam: BP 135/81 (BP Site: Right Arm, BP Position: Sitting, BP Cuff Size: Large Adult) Pulse 94 Temp 36.4 ?C (97.5 ?F) (Tympanic) GENERAL:WNL nutrition, no deformities, healthy appearing ABDOMEN: Soft, nontender, nondistended, no masses. HERNIAS: None SKIN/LYMPH: No rash, lesions NEURO/PSYCH: No signs of depression, anxiety, or agitation EXTREMITIES: Extremities normal. No deformities, edema, clubbing or skin discoloration. GENITOURINARY: MALE EXAM: Circumcised. Scrotum and testes are normal. Penis is Assessment: Organic ED Plan: Discussed Vacuum pump device and penile injections, along with risks and benefits. Does not recommend the penile injections. Discussed IPP placement, discussed procedure along with risks and benefits. Discussed that patient is not ready for a penile implant. Recommends patient control diabetes before following up for treatment for ED.WIth controlled diabetes, noticiable improvement will take about 6 months. RTC PRN if no improvement. Encouraged patient to discontinue smoking/nicotine, reduce alcohol intake, and improve diet. Attestation: By signing my name below, Mela Ireland, attest that this documentation has been prepared under the direction and in the presence of Kary Mendez MD. Electronically signed: Galina Urena, October 09, 2018 3:03 PM Kary Ireland MD, personally performed the services described in this documentation. All medical record entries made by the galina were at my direction and in my presence. I have reviewed the chart and discharge instructions (if applicable) and agree that the record reflects my personal performance and is accurate and complete. 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 Mason: I had the pleasure of seeing your patient today. Enclosed is a copy of his office visit note. Thank you for the opportunity of sharing in his care. Sincerely yours, Kary Mendez MD DKM/ms Enc: office note Encounter Status:Closed by KARY MENDEZ MD on 10/09/[address] [facility] PROGRESSon 10-09-2018 PROGRESS HNO ID: [id number] Author: Kary Mendez Service: (none) Author Type: Physician Type: Progress Notes Filed: 10/09/2018 3:29 PM Note Text: [facility] NEW PATIENT HISTORY AND PHYSICAL EXAM PATIENT INFO: Justice Aranda 48 year old REFERRING M.D.: Dennis Mason MD [address] [place] [id number] HISTORY 48 year old male here for an ED consult. He has a med history of HTN, DM- recently started on Metformin and just began checking blood glucose. He had been in shelter, reports sustaining a head injury Sep 2016. This resulted in a left sided blood clot that was not diagnosed until 6 months after the injury. He reports some concerns for slight Right sided upper extremity deficits. He has some difficulty remembering events and reporting details. His girlfriend is here assisting today. He reports 1 involuntary erection this past year. Without medication, his erection is about 30%. He reports being able to ejaculate an average of less than 75% of the time in the last year He reports that in 2014 he had tried 100-300 mg of Viagra, however; this provides a half erection. His home [facility] urologist reported that injections were not a good option as him and his partner are active 5 x a week- more injections than he should have . PSA and JM followed by hometown providers. MEDICATIONS: Current Outpatient Prescriptions: metFORMIN ER (GLUCOPHAGE XR) 500 mg 24 hr tablet Take 1,000 mg by mouth every morning. No current facility-administered medications for this visit. MEDICATION ALLERGIES: ALLERGIES No Known Allergies PAST MEDICAL HISTORY Diagnosis Date - Blood clots in brain right weakness d/t clots - Brain injury (HCC) 2016 - Diabetes (HCC) - HTN (hypertension) PAST SURGICAL HISTORY Procedure Laterality Date - NONE FAMILY HISTORY: NEGATIVE: No related previous family history. Social History Marital status: Single Spouse name: Years of education: Number of children: Social History Main Topics Smoking status: Current Some Day Smoker Packs/day: 0.00 Years: 0.00 Types: Cigars Smokeless tobacco: Never Used Alcohol use: Yes 9.0 oz/week Cans of Beer (12oz): 6 per week GENERAL ROS: Constitutional: positive Some confusion, brain injury Eyes: negative Ear Nose and Throat: negative Cardiovascular: positive HTN in past Respiratory: negative Gastrointestinal: negative Musculoskeletal: negative Integumentary: negative Neurological: positive brain injury Psychiatric: positive brain injury Endocrine: positive Diabetes Hematologic/Lymphatic: negative Allergic/Immunologic: negative : Force of Stream:good NOCTURIA: 1 Day Time Frequency: 5 Hesitancy: no Intermittency: no Incomplete Emptying: no Post void Dribbling: no Urinary Retention Hx: no Double Voiding: no Urgency: no Dysuria: no Incontinence history: no HISTORY OF FAMILY CANCER:no gross hematuria history: no Erectile dysfunction: yes UTI Hx: no Nieves Eaton RN BSN STAFF NOTE: This consult was requested by Dr. Mason for an opinion regarding Erectile Dysfunction, and my final recommendations will be communicated to the requesting health care provider by way of the shared medical record for internal providers or letter via the [place] [employer] for external providers. HPI: Girlfriend present during visit Reports normal libido and ejaculation Reports that his last erection was straight Did not respond to oral medication of Viagra Erection is good enough for penetration, that lasts up to an hour Reports that rigidity is decreased to 5/10 Girlfriend reports that mood influences his erection rigidity; performance anxiety Patient recently diagnosed with Diabetes Physical Exam: BP 135/81 (BP Site: Right Arm, BP Position: Sitting, BP Cuff Size: Large Adult) Pulse 94 Temp 36.4 ?C (97.5 ?F) (Tympanic) GENERAL:WNL nutrition, no deformities, healthy appearing ABDOMEN: Soft, nontender, nondistended, no masses. HERNIAS: None SKIN/LYMPH: No rash, lesions NEURO/PSYCH: No signs of depression, anxiety, or agitation EXTREMITIES: Extremities normal. No deformities, edema, clubbing or skin discoloration. GENITOURINARY: MALE EXAM: Circumcised. Scrotum and testes are normal. Penis is Assessment: Organic ED Plan: Discussed Vacuum pump device and penile injections, along with risks and benefits. Does not recommend the penile injections. Discussed IPP placement, discussed procedure along with risks and benefits. Discussed that patient is not ready for a penile implant. Recommends patient control diabetes before following up for treatment for ED.WIth controlled diabetes, noticiable improvement will take about 6 months. RTC PRN if no improvement. Encouraged patient to discontinue smoking/nicotine, reduce alcohol intake, and improve diet. Attestation: By signing my name below, Mela Ireland attest that this documentation has been prepared under the direction and in the presence of Kary Mendez MD. Electronically signed: Galina Urena, October 09, 2018 3:03 PM Kary Ireland MD, personally performed the services described in this documentation. All medical record entries made by the scribe were at my direction and in my presence. I have reviewed the chart and discharge instructions (if applicable) and agree that the record reflects my personal performance and is accurate and complete. Kary Mendez MD October 09, 2018 3:03 PM Normal [facility] Urinalysison 10-09-2018 Bilirubin, Urine Negative Normal Negative [facility] Comment on above: Performed By: #### U A #### [facility] [address] [phone] Clarity (U) Clear Normal Clear [facility] Comment on above: Performed By: #### U A #### [place] [phone] Color (U) Yellow Normal Yellow [facility] Comment on above: Performed By: #### U A #### [place] [phone] Comments SEE COMMENT Normal [facility] Comment on above: Result Comment: Micr oscopic not warranted Performed By: #### U A #### [place] [phone] Glucose Ql (U) >=1000 Critically abnormal [facility] Comment on above: Performed By: #### U A #### [place] [phone] Hemoglobin/Blood,Ur Negative Normal Negative [facility] Comment on above: Performed By: #### U A #### [id number] [place] [phone] Ketones Ql (U) Negative Normal Negative [facility] Comment on above: Performed By: #### U A #### [place] [phone] Leukest Negative Normal Negative [facility] Comment on above: Performed By: #### U A #### [place] [phone] Nitrite Ql (U) Negative Normal Negative [facility] Comment on above: Performed By: #### U A #### [facility] [address] [place], [place] [address] pH (Bld) 5.5 Normal 4.5-8.0 [facility] Comment on above: Performed By: #### U A #### [id number] [place] [id number] Protein (U) [Mass/Vol] Negative Normal Negative [facility] Comment on above: Performed By: #### U A #### [place] [address] Specific [place], Ur 1.018 Normal 1.005-1.030 [facility] Comment on above: Performed By: #### U A #### [place] [address] Urine Zach Comment SEE COMMENT Normal [facility] Comment on above: Result Comment: N/A Performed By: #### U A #### [place] [id number] Urobilinogen Qn (U) Normal Normal Normal [facility] Comment on above: Performed By: #### U A #### [id number] [place], [place] [address] Vital Signs Date Time Vital Sign Value Performing Clinician Facility 08-15-2023 10:16-0400 Diastolic blood pressure 76 mm[Hg] DO Crow Dean Work Phone: [facility] 08-15-2023 10:16-0400 Heart rate 89 /min DO Crow Dean Work Phone: [facility] 08-15-2023 10:16-0400 Respiratory rate 18 /min DO Crow Dean Work Phone: [facility] 08-15-2023 10:16-0400 SaO2% (BldA) [Mass fraction] 97 % DO Crow Dean Work Phone: [facility] 08-15-2023 10:16-0400 Systolic blood pressure 139 mm[Hg] DO Crow Sumanth Work Phone: [facility] 08-15-2023 08:18-0400 Body height 180.34 cm DO Crow Dean Work Phone: [facility] 08-15-2023 08:18-0400 Body temperature 97.8 [degF] DO Crow Dean Work Phone: [facility] 08-15-2023 08:18-0400 Body weight 80.2 kg DO Crow Dean Work Phone: [facility] 07-23-2023 05:21-0400 Diastolic blood pressure 74 mm[Hg] DO Crow Dean Work Phone: [facility] 07-23-2023 05:21-0400 Heart rate 78 /min DO Crow Dean Work Phone: [facility] 07-23-2023 05:21-0400 Respiratory rate 19 /min DO Crow Dean Work Phone: [facility] 07-23-2023 05:21-0400 SaO2% (BldA) [Mass fraction] 98 % DO Crow Dean Work Phone: [facility] 07-23-2023 05:21-0400 Systolic blood pressure 143 mm[Hg] DO Crow Dean Work Phone: [facility] 07-22-2023 23:53-0400 Body height 180.34 cm DO Crow Dean Work Phone: [facility] 07-22-2023 23:53-0400 Body temperature 98.6 [degF] DO Crow Dean Work Phone: [facility] 07-22-2023 23:53-0400 Body weight 79 kg DO Crow Sumanth Work Phone: [facility] 06-30-2023 12:41-0400 Diastolic blood pressure 82 mm[Hg] DO Crow Sumanth Work Phone: [facility] 06-30-2023 12:41-0400 Heart rate 71 /min DO Crow Sumanth Work Phone: [facility] 06-30-2023 12:41-0400 Respiratory rate 18 /min DO Crow Sumanth Work Phone: [facility] 06-30-2023 12:41-0400 SaO2% (BldA) [Mass fraction] 99 % DO Crow Sumanth Work Phone: [facility] 06-30-2023 12:41-0400 Systolic blood pressure 178 mm[Hg] DO Crow Sumanth Work Phone: [facility] 06-30-2023 10:17-0400 Body height 180.34 cm DO Crow Sumanth Work Phone: [facility] 06-30-2023 10:17-0400 Body temperature 97.8 [degF] DO Crowmicky Dean Work Phone: [facility] 06-30-2023 10:17-0400 Body weight 83.95 kg DO Crow Sumanth Work Phone: [facility] 06-24-2023 11:31-0400 Diastolic blood pressure 54 mm[Hg] DO Crow Sumanth Work Phone: [facility] 06-24-2023 11:31-0400 Heart rate 89 /min DO Crow Sumanth Work Phone: [facility] 06-24-2023 11:31-0400 Respiratory rate 20 /min DO Crow Sumanth Work Phone: [facility] 06-24-2023 11:31-0400 SaO2% (BldA) [Mass fraction] 99 % DO Crow Dean Work Phone: [facility] 06-24-2023 11:31-0400 Systolic blood pressure 132 mm[Hg] DO Crow Sumanth Work Phone: [facility] 06-24-2023 09:44-0400 Body height 177.8 cm DO Crow Dean Work Phone: [facility] 06-24-2023 09:44-0400 Body temperature 98.6 [degF] DO Crow Dean Work Phone: [facility] 06-24-2023 09:44-0400 Body weight 84.2 kg DO Crow Dean Work Phone: [facility] 05-05-2023 11:27-0400 Body temperature 98.4 [degF] DO Crow Dean Work Phone: [facility] 05-05-2023 11:27-0400 Diastolic blood pressure 70 mm[Hg] DO Crow Dean Work Phone: [facility] 05-05-2023 11:27-0400 Heart rate 81 /min DO Crow Dean Work Phone: [facility] 05-05-2023 11:27-0400 Respiratory rate 18 /min DO Crow Dean Work Phone: [facility] 05-05-2023 11:27-0400 SaO2% (BldA) [Mass fraction] 99 % DO Crow Dean Work Phone: [facility] 05-05-2023 11:27-0400 Systolic blood pressure 123 mm[Hg] DO Crow Sumanth Work Phone: [facility] 05-05-2023 05:38-0400 Body weight 85.4 kg DO Crow Dean Work Phone: [facility] 05-04-2023 16:05-0400 Body height 154.94 cm DO Crow Dean Work Phone: [facility] 05-03-2023 20:13-0400 Body temperature 100.6 [degF] DO Crow Dean Work Phone: [facility] 05-03-2023 20:13-0400 Diastolic blood pressure 83 mm[Hg] DO Crow Daen Work Phone: [facility] 05-03-2023 20:13-0400 Heart rate 105 /min DO Crow Dean Work Phone: [facility] 05-03-2023 20:13-0400 Respiratory rate 20 /min DO Crow Dean Work Phone: [facility] 05-03-2023 20:13-0400 SaO2% (BldA) [Mass fraction] 97 % DO Crow Dean Work Phone: [facility] 05-03-2023 20:13-0400 Systolic blood pressure 184 mm[Hg] DO Crow Dean Work Phone: [facility] 05-03-2023 13:37-0400 Body height 154.94 cm DO Crow Dean Work Phone: [facility] 05-03-2023 13:37-0400 Body weight 85.35 kg DO Crow Dean Work Phone: [facility] 01-07-2023 21:30-0500 Diastolic blood pressure 77 mm[Hg] DO Crow Dean Work Phone: [facility] 01-07-2023 21:30-0500 Heart rate 94 /min DO Crowmicky Dean Work Phone: [facility] 01-07-2023 21:30-0500 Respiratory rate 20 /min DO Crow Dean Work Phone: [facility] 01-07-2023 21:30-0500 SaO2% (BldA) [Mass fraction] 97 % DO Crow Dean Work Phone: [facility] 01-07-2023 21:30-0500 Systolic blood pressure 115 mm[Hg] DO Crowmicky Dean Work Phone: [facility] 01-07-2023 18:46-0500 Body height 180.34 cm DO Crow Dean Work Phone: [facility] 01-07-2023 18:46-0500 Body temperature 99.8 [degF] DO Crow Dean Work Phone: [facility] 01-07-2023 18:46-0500 Body weight 83.75 kg DO Crow Dean Work Phone: [facility] 10-26-2022 10:30-0500 Diastolic blood pressure 69 mm[Hg] DO Crow Dean Work Phone: [facility] 10-26-2022 10:30-0500 Heart rate 68 /min DO Crow Dean Work Phone: [facility] 10-26-2022 10:30-0500 Respiratory rate 16 /min DO Crow Dean Work Phone: [facility] 10-26-2022 10:30-0500 SaO2% (BldA) [Mass fraction] 97 % DO Crow Dean Work Phone: [facility] 10-26-2022 10:30-0500 Systolic blood pressure 128 mm[Hg] DO Crow Dean Work Phone: [facility] 10-26-2022 09:12-0500 Body height 180.34 cm DO Crow Dean Work Phone: [facility] 10-26-2022 09:12-0500 Body temperature 98.9 [degF] DO Crow Dean Work Phone: [facility] 10-26-2022 09:12-0500 Body weight 85.2 kg DO Crow Sumanth Work Phone: [facility] 10-13-2022 09:18-0500 Body height 172.72 cm DO Crow Sumanth Work Phone: [facility] 10-13-2022 09:18-0500 Body temperature 98.5 [degF] DO Crow Dean Work Phone: [facility] 10-13-2022 09:18-0500 Body weight 85.5 kg DO Crow Dean Work Phone: [facility] 10-13-2022 09:18-0500 Diastolic blood pressure 90 mm[Hg] DO Crow Sumanth Work Phone: [facility] 10-13-2022 09:18-0500 Heart rate 81 /min DO Crow Dean Work Phone: [facility] 10-13-2022 09:18-0500 Respiratory rate 18 /min DO Crow Dean Work Phone: [facility] 10-13-2022 09:18-0500 SaO2% (BldA) [Mass fraction] 98 % DO Crow Dean Work Phone: [facility] 10-13-2022 09:18-0500 Systolic blood pressure 142 mm[Hg] DO Crow Sumanth Work Phone: [facility] 10-11-2022 13:54-0500 Diastolic blood pressure 83 mm[Hg] DO Crow Sumanth Work Phone: [facility] 10-11-2022 13:54-0500 Heart rate 76 /min DO Crow Sumanth Work Phone: [facility] 10-11-2022 13:54-0500 Respiratory rate 16 /min DO Crow Sumanth Work Phone: [facility] 10-11-2022 13:54-0500 SaO2% (BldA) [Mass fraction] 98 % DO Crow Dean Work Phone: [facility] 10-11-2022 13:54-0500 Systolic blood pressure 138 mm[Hg] DO Crow Dean Work Phone: [facility] 10-11-2022 11:45-0500 Body height 180.34 cm DO Crow Dean Work Phone: [facility] 10-11-2022 11:45-0500 Body temperature 98.5 [degF] DO Crow Dean Work Phone: [facility] 10-11-2022 11:45-0500 Body weight 84.8 kg DO Crow Dean Work Phone: [facility] 06-06-2019 23:24-0400 Body Temperature 99.61 [degF] [email or web address] [email or web address] 06-06-2019 22:00-0400 BP Diastolic 63 mm[Hg] [email or web address] [email or web address] 06-06-2019 22:00-0400 BP Systolic 121 mm[Hg] [email or web address] [email or web address] 06-06-2019 22:00-0400 Pulse Oximetry 96 % [email or web address] [email or web address] 06-06-2019 21:39-0400 BMI (Body Mass Index) 27.89 kg/m2 [email or web address] [email or web address] 06-06-2019 21:39-0400 Body weight 90.72 kg [email or web address] [email or web address] 06-06-2019 21:39-0400 Height 180.3 cm [email or web address] [email or web address] 06-06-2019 21:37-0400 Pulse (Heart Rate) 96 /min [email or web address] [email or web address] 06-06-2019 21:37-0400 Respiratory Rate 16 /min [email or web address] [email or web address] 06-04-2019 19:06-0400 BMI (Body Mass Index) 27.91 kg/m2 [email or web address] [email or web address] 06-04-2019 19:06-0400 Body weight 90.77 kg Ivett Fan [employer] 06-04-2019 19:06-0400 Height 180.3 cm Ivett Fan [employer] 06-04-2019 19:05-0400 Body Temperature 99.3 [degF] Ivett Fan [employer] 06-04-2019 19:05-0400 BP Diastolic 65 mm[Hg] Ivett Fan [employer] 06-04-2019 19:05-0400 BP Systolic 122 mm[Hg] Ivett Fan [employer] 06-04-2019 19:05-0400 Pulse (Heart Rate) 96 /min Ivett Fan [employer] 06-04-2019 19:05-0400 Respiratory Rate 18 /min Ivett Fan [employer] 05-31-2019 23:00-0400 BP Diastolic 71 mm[Hg] Ivett Fan [employer] 05-31-2019 23:00-0400 BP Systolic 107 mm[Hg] Ivett Fan [employer] 05-31-2019 21:55-0400 BMI (Body Mass Index) 30.1 kg/m2 Ivett Fan [employer] 05-31-2019 21:55-0400 Body weight 97.89 kg Ivett Fan [employer] 05-31-2019 21:55-0400 Height 180.3 cm Ivett Fan [employer] 05-31-2019 21:53-0400 Body Temperature 99.61 [degF] Ivett Fan [employer] 05-31-2019 21:53-0400 Pulse (Heart Rate) 98 /min Ivett Fan [employer] 05-31-2019 21:53-0400 Pulse Oximetry 96 % Ivett Fan [employer] 05-31-2019 21:53-0400 Respiratory Rate 18 /min Ivett Fan [employer] 05-26-2019 10:58-0400 BP Diastolic 80 mm[Hg] [facility] [employer] 05-26-2019 10:58-0400 BP Systolic 131 mm[Hg] [facility] 05-26-2019 10:58-0400 Pulse (Heart Rate) 61 /min [facility] 05-26-2019 10:58-0400 Pulse Oximetry 97 % [facility] [employer] [facility] 05-26-2019 10:00-0400 Respiratory Rate 12 /min [facility] [employer] [facility] 05-26-2019 09:14-0400 BMI (Body Mass Index) 28.45 kg/m2 [facility] 05-26-2019 09:14-0400 Body weight 92.53 kg [facility] 05-26-2019 09:14-0400 Height 180.3 cm [facility] 05-26-2019 09:12-0400 Body Temperature 97.59 [degF] [facility] 05-03-2019 11:00-0400 BP Diastolic 68 mm[Hg] [facility] 05-03-2019 11:00-0400 BP Systolic 130 mm[Hg] [facility] 05-03-2019 11:00-0400 Pulse Oximetry 99 % [facility] 05-03-2019 09:27-0400 Pulse (Heart Rate) 56 /min [facility] 05-03-2019 08:54-0400 BMI (Body Mass Index) 26.08 kg/m2 [facility] 05-03-2019 08:54-0400 Height 180.3 cm [facility] 05-03-2019 08:54-0400 Weight 84.82 kg [facility] 05-03-2019 08:53-0400 Body Temperature 98.6 [degF] [facility] 05-03-2019 08:53-0400 Respiratory Rate 18 /min [facility] Encounters Encounter Date Encounter Type Care Provider Facility Start: 11-10-2023 End: 11-10-2023 ambulatory CROW DEAN Not Available Start: 08-15-2023 End: 08-15-2023 Emergency department patient visit Crow Dean Facility:[facility] Start: 08-15-2023 End: 08-15-2023 Emergency department patient visit DO Crow Dean Work Phone: [facility] Work Phone: Start: 07-23-2023 End: 07-23-2023 Emergency department patient visit Crow Dean Facility:[facility] Start: 07-22-2023 End: 07-23-2023 Emergency department patient visit DO Crow Dean Work Phone: [facility] Work Phone: Start: 06-30-2023 End: 06-30-2023 Emergency department patient visit Chen Acosta Facility:[facility] Start: 06-30-2023 End: 06-30-2023 Emergency department patient visit DO Crow Dean Work Phone: [facility] Work Phone: Start: 06-24-2023 End: 06-24-2023 Emergency department patient visit Crow Dean Facility:[facility] Start: 06-24-2023 End: 06-24-2023 Emergency department patient visit DO Crow Dean Work Phone: [facility] Work Phone: Start: 05-03-2023 End: 05-05-2023 Evaluation and management of inpatient Eldon E Katina Facility:[facility] Start: 05-03-2023 End: 05-05-2023 Evaluation and management of inpatient DO Crow Dean Work Phone: [facility] [place] [facility] Work Phone: Start: 01-07-2023 End: 01-08-2023 Emergency department patient visit Crow Sumanth Facility:[facility] Start: 01-07-2023 End: 01-07-2023 Emergency department patient visit DO Crowmicky Dean Work Phone: [facility] Work Phone: Start: 11-10-2022 End: 11-10-2022 ambulatory Crow Dean Facility:[facility] Start: 11-10-2022 End: 11-10-2022 ambulatory DO Crow Dean Work Phone: [facility] Work Phone: Start: 11-10-2022 End: 11-10-2022 Patient encounter procedure DO Crow Dean Work Phone: [facility]-CT Scan [facility] [place] Start: 11-04-2022 End: 11-04-2022 ambulatory Crow Dean Facility:[facility] Start: 11-04-2022 End: 11-04-2022 ambulatory DO Crow Dean Work Phone: [facility] Work Phone: Start: 11-04-2022 End: 11-04-2022 Patient encounter procedure DO Crow Dean Work Phone: [facility]Lab [facility] [place] Start: 10-26-2022 End: 10-26-2022 Emergency department patient visit Ladi Mina Facility:[facility] Start: 10-26-2022 End: 10-26-2022 Emergency department patient visit DO Crow Dean Work Phone: [facility] Start: 10-13-2022 End: 10-13-2022 Emergency department patient visit Crow Dean Facility:[facility] Start: 10-13-2022 End: 10-13-2022 Emergency department patient visit DO Crow Dean Work Phone: [facility] Start: 10-11-2022 End: 10-11-2022 Emergency department patient visit Vimal Thayer Facility:[facility] Start: 10-11-2022 End: 10-11-2022 Emergency department patient visit DO Crow Dean Work Phone: [facility] Start: 10-01-2019 Patient encounter procedure LOY ABREU [facility] Start: 10-01-2019 End: 10-01-2019 Patient encounter procedure Loy Abreu Work Phone: [facility] Comment on above: Tear of ulnar collat eral ligament of right elbow, initial encounter (Primary Dx); Elbow pain, chronic, right Start: 09-25-2019 End: 09-25-2019 Telephone encounter Sofiya Avina Work Phone: [facility] Comment on above: Elbow Pain Start: 09-24-2019 Patient encounter procedure LOY ABREU [facility] Start: 09-24-2019 End: 09-24-2019 Patient encounter procedure Loy Abreu Work Phone: [facility] Comment on above: Tear of ulnar collat eral ligament of right elbow, initial encounter (Primary Dx); Elbow pain, chronic, right Start: 09-18-2019 End: 09-18-2019 Patient encounter procedure Loy Abreu Work Phone: [employer] Comment on above: Right elbow pain (Pr imary Dx) Start: 08-14-2019 Patient encounter status Crow Dean Work Phone: [facility] Start: 06-06-2019 End: 06-07-2019 Emergency department patient visit Ivett Omer' Work Phone: [facility] Start: 06-04-2019 End: 06-04-2019 Emergency department patient visit Ivett Omer' Work Phone: [facility] Start: 06-01-2019 End: 06-01-2019 Outside Orders Historical Provider [facility] Comment on above: Swelling of right el bow Arrived Start: 05-31-2019 End: 05-31-2019 Emergency department patient visit Ivett Fan Work Phone: [facility] Start: 05-28-2019 End: 05-28-2019 Outside Orders Historical Provider [facility] Start: 05-26-2019 End: 05-26-2019 Emergency department patient visit Leilani Monge Work Phone: [facility] Start: 05-03-2019 End: 05-03-2019 Emergency department patient visit Vik Mendosa Work Phone: [facility] Start: 11-24-2018 End: 11-25-2018 Emergency department patient visit WALTER CHAUDHRY [facility] Procedures Date Procedure Procedure Detail Performing Clinician Start: 07-23-2023 Plain chest X-ray DO Alexander Dean Work Phone: Start: 06-24-2023 Plain chest X-ray DO Alexander Dean Work Phone: Start: 05-03-2023 Ultrasonography of b ilateral kidneys DO Crow Dean Work Phone: Start: 05-03-2023 Respiratory Panel (PCR) DO Crow Dean Work Phone: Start: 05-03-2023 Plain chest X-ray DO Alexander Dean Work Phone: Start: 01-07-2023 Plain chest X-ray DO Alexander Dean Work Phone: Start: 11-10-2022 CT of head without contrast DO Crow Dean Work Phone: Start: 11-10-2022 US scan of gallbladder DO Crow Dean Work Phone: Start: 10-26-2022 SARS-CoV-2, Influenz a & RSV (PCR) DO Crow Dean Work Phone: Start: 10-26-2022 CT of abdomen and pe lvis without contrast DO Crow Dean Work Phone: Start: 10-11-2022 SARS-CoV-2, Influenz a & RSV (PCR) DO Crow Dean Work Phone: Start: 10-11-2022 Diagnostic radiograp hy of abdomen DO Crow Dean Work Phone: Start: 06-07-2019 Computed tomography of abdomen and pelvis with contrast Ivett Fan Work Phone: Start: 06-07-2019 End: 06-07-2019 Diagnostic radiography of abdomen Ivett Fan Work Phone: Start: 06-07-2019 URINALYSIS WITH REFL EX CULTURE Ivett Fan Work Phone: Start: 06-07-2019 Urnls dip stick/tabl et reagent auto microscopy Ivett Fan Work Phone: Start: 06-07-2019 Assay of amylase Ivett Fan Work Phone: Start: 06-07-2019 Assay of lactate Ivett Fan Work Phone: Start: 06-07-2019 Assay of lipase Ivett Fan Work Phone: Start: 06-07-2019 CBC, EDIF, PLATELET Ang bianca Fan Work Phone: Start: 06-07-2019 COMPREHENSIVE METABO LIC PROFILE ER Ivett Fan Work Phone: Start: 06-07-2019 Prothrombin time Ivett Fan Work Phone: Start: 06-07-2019 Glucose blood reagent strip Other Other Start: 06-01-2019 Radiography of elbow Sc catherine W Jose Angel Work Phone: Start: 06-01-2019 OUTSIDE RADIOLOGY Histo rical Provider Start: 06-01-2019 Radiography of shoulder Ivett Fan Work Phone: Start: 06-01-2019 Assay of acetaminophen Ivett Fan Work Phone: Start: 06-01-2019 Assay of ethanol Ivett Fan Work Phone: Start: 06-01-2019 Assay of magnesium Missy la Dion Fan Work Phone: Start: 06-01-2019 Assay of salicylate Ang bianca Dion Fan Work Phone: Start: 06-01-2019 Assay of thyroid sti mulating hormone tsh Ivett Fan Work Phone: Start: 06-01-2019 CBC, EDIF, PLATELET Ang bianca Fan Work Phone: Start: 06-01-2019 COMPREHENSIVE METABO LIC PROFILE ER Ivett Fan Work Phone: Start: 06-01-2019 DRUGS OF ABUSE PROFILE, URINE Ivett Fan Work Phone: Start: 06-01-2019 URINALYSIS W/ MICRO W/ REFLEX C AND S Ivett Fan Work Phone: Start: 05-26-2019 Electrocardiogram Histo rical Provider Start: 05-26-2019 Assay of ethanol Leilani Monge Work Phone: Start: 05-26-2019 Assay of magnesium Saye shama Monge Work Phone: Start: 05-26-2019 Assay of troponin quantitative Sayjorge Monge Work Phone: Start: 05-26-2019 CBC, EDIF, PLATELET Say ed Nenita Monge Work Phone: Start: 05-26-2019 Comprehensive metabolic panel Sayjorge Monge Work Phone: Start: 05-26-2019 Creatine kinase total S ayjorge Monge Work Phone: Start: 05-26-2019 Ketone bodies serum qualitative Sayed Nenita Monge Work Phone: Start: 05-26-2019 PH VENOUS Sayed Nenita joyner Work Phone: Start: 05-26-2019 Prothrombin time Sayed Nenita Monge Work Phone: Start: 05-26-2019 DRUGS OF ABUSE PROFILE, URINE Sayed Nenita Monge Work Phone: Start: 05-26-2019 URINALYSIS WITH REFL EX CULTURE Sayed Nenita Monge Work Phone: Start: 05-26-2019 Urnls dip stick/tabl et reagent auto microscopy Sayed Nenita Monge Work Phone: Start: 05-26-2019 Standard ECG Sayed Nenita joyner Work Phone: Start: 05-03-2019 CT of entire head Vik Mendosa Work Phone: Start: 05-03-2019 URINALYSIS WITH REFL EX CULTURE Vik Mendosa Work Phone: Start: 05-03-2019 Urnls dip stick/tabl et reagent auto microscopy Vik Mendosa Work Phone: Start: 05-03-2019 CBC, EDIF, PLATELET Ran jose Mendosa Work Phone: Start: 05-03-2019 Comprehensive metabolic panel Vik Mendosa Work Phone: Start: 11-25-2018 Glucose quantitative blood xcpt reagent strip WALTER CARONE Start: 11-25-2018 RAPID INFLUENZA A/B ANTIGENS WALTER CARONE Start: 11-25-2018 STREP SCREEN GROUP A THROAT WALTER CARONE Start: 11-25-2018 Radiologic exam ches t single view WALTER CARONE Start: 11-24-2018 EKG 12-LEAD WALTER CA SHAKIRA Start: 11-24-2018 Basic metabolic pane l calcium total WALTER CARONE Start: 11-24-2018 Blood count complete auto&auto difrntl wbc WALTER CARONE Start: 11-24-2018 Troponin I.cardiac [Mass/Vol] WALTER CARONE Start: 11-24-2018 INSERT PERIPHERAL IV HE ATHER CARONE Start: 11-24-2018 TELEMETRY MONITORING HE ATHER CARONE Start: 11-24-2018 VITAL SIGNS WALTER CA SHAKIRA Start: 11-24-2018 Glucose quantitative blood xcpt reagent strip WALTER CARONE Start: 11-24-2018 POCT GLUCOSE WALTER CA SHAKIRA Plan of Treatment Date Care Activity Detail Author Start: 07-23-2023 Plain chest X-ray XR chest 2V* [facility] Start: 07-23-2023 XR Chest 2 Views [facility] Start: 05-05-2023 [facility] Start: 05-04-2023 Administration of prophylactic treatment [facility] Start: 05-04-2023 Comprehensive metabolic 2000 panel - Serum or Plasma [facility] Start: 05-04-2023 Lipid panel [facility] Start: 05-04-2023 [facility] Start: 05-03-2023 End: 05-03-2023 [facility] Start: 05-03-2023 Ultrasonography of bilateral kidneys US renal BI [facility] Start: 05-03-2023 Hospital admission [facility] Start: 05-03-2023 [facility] Start: 05-03-2023 [facility] Start: 05-03-2023 Respiratory Panel (PCR) Respiratory Panel (PCR) [facility] Start: 10-11-2019 End: 10-11-2019 Rehab Services Visit 10/11/2019 Rehab Services Visit Occupational Therapy Loy Abreu, DO [address] [place] [address] [phone] Sam Huang, OT [address] [place] [address] [facility] Start: 10-09-2019 End: 10-09-2019 Rehab Services Visit 10/09/2019 Rehab Services Visit Occupational Therapy Loy Abreu, DO [address] [place] [address] Sofiya Avina, OT [address] [place] [address] [phone] [facility] Start: 10-08-2019 End: 10-08-2019 Rehab Services Visit 10/08/2019 Rehab Services Visit Occupational Therapy Loy Abreu, DO [address] [place] [address] Pat Goss, RENTAL SALESPERSON [address] [place] [address] [facility] Start: 10-03-2019 End: 10-03-2019 Rehab Services Visit 10/03/2019 Rehab Services Visit Occupational Therapy Loy Abreu, DO [address] [place] [address] Boeckman, Pat, JOSE [address] [place] [address] [facility] Start: 10-01-2019 End: 10-01-2019 Rehab Services Visit 10/01/2019 Rehab Services Visit Occupational Therapy Loy Abreu, DO [address] [place] [address] [phone] Pat Goss, RENTAL SALESPERSON [address] [place] [address] [facility] Start: 09-24-2019 End: 09-24-2019 Rehab Services Visit 09/24/2019 Rehab Services Visit Occupational Therapy Loy Abreu, DO [address] [place] [address] [phone] Syed Mona, OT [address] [place] [address] [phone] [facility] Start: 07-29-2019 Influenza vaccination COUNTS INCLUDE [facility] AT [facility] Start: 2019 Colonoscopy COLON CANCER SCREENING DISCUSSION COUNTS INCLUDE 234 BEDS AT THE [facility] Start: 2019 Prostate specific antigen measurement PROSTATE CANCER SCREENING DISCUSSION COUNTS INCLUDE 234 BEDS AT THE [facility] Start: 2019 Zoster vaccine hzv live for subcutaneous use ZOSTER (SHINGLES) VACCINE (1 of 2) COUNTS INCLUDE 234 [facility]S AT THE [facility] Start: 2009 Fasting lipid profile LIPID SCREENING COUNTS INCLUDE 234 B[facility]S AT THE [facility] Start: 1988 Third diphtheria, tetanus and acellular pertussis (DTaP) vaccination TDAP (ADULT) COUNTS INCLUDE 234 BEDS AT THE [facility] Start: 1987 Tetanus vaccination TETANUS COUNTS INCLUDE 234 BEDS AT THE [facility] Start: 1982 HIV screening HIV SCREENING DISCUSSION COUNTS INCLUDE 234 BEDS AT THE [facility] ALCOHOL (ETHANOL),BLOOD ALCOHOL (ETHANOL),BLOOD Lab STAT 05/26/2019 9:48 AM EDT COUNTS INCLUDE 234 BEDS AT THE [facility] Patient Education [facility] Work Phone: Patient referral [facility] Work Phone: Immunizations Immunization Date Immunization Notes Care Provider Fa cility 04-18-2020 tetanus toxoid, redu wendi diphtheria toxoid, and acellular pertussis vaccine, adsorbed DO Crow Dean Work Phone: [facility] Payers Date Payer Category Payer Self-pay [id number] 2019 Unknown [id number] 2019 Unknown [facility] OR OTHER [facility] OR [facility] OR OTHER xxxxxxxxx 2019-Present xxxxxxxxx [id number] 2019 Unknown [id number] 2019 Unknown ANTHEM ANTHEM HM O PPO POS xxxxxxxxxxxx 2019-Present xxxxxxxxxxxx 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
== END 2023-11-02 10:02 | disposition home or self-care (01) ==
PROVIDERS: Visit Provider Surgery
PROC: (CPT 813; principal; 2023-11-02 08:50)
DX: K52.9 Noninfective gastroenteritis and colitis, unspecified (principal); K29.50 Unspecified chronic gastritis without bleeding; R11.2 Nausea with vomiting, unspecified; R63.4 Abnormal weight loss; R93.3 Abnormal findings on diagnostic imaging of other parts of digestive tract; E11.9 Type 2 diabetes mellitus without complications; K21.00 Gastro-esophageal reflux disease with esophagitis, without bleeding; Z79.899 Other long term (current) drug therapy; F17.290 Nicotine dependence, other tobacco product, uncomplicated; Z68.26 Body mass index [BMI] 26.0-26.9, adult
CPT/HCPCS: 43239; 45378; 36415; 36430; 87077; 88305; 88312; 88313; 88342; 99999; J2704

== ENCOUNTER 2023-11-02 11:41 | Outpatient (OUT) | payer OTHER, SELFPAY | END 2023-11-02 11:42 | disposition home or self-care (01) | LOC: PST 11:42 | PROVIDERS: Visit Provider Surgery | DX: Z01.818 Encounter for other preprocedural examination (principal); K52.9 Noninfective gastroenteritis and colitis, unspecified; R11.2 Nausea with vomiting, unspecified ==

== ENCOUNTER 2023-11-12 08:59 | Outpatient (OUT) | payer OTHER, SELFPAY ==
--- NOTE | 2023-11-12 | CT_ITS ---
[address] [address] Patient Name: REINA FARRELL MRN: [id number] date: 1970 Sex: M Assigned Patient Location: CT Current Patient Location: CT Accession/Order Number: [id number] Exam Date: 11/12/2023 10:00 Report Date: 11/12/2023 12:46 At the request of: LOY BORREGO Procedure: CT abdomen pelvis w con CLINICAL HISTORY: UNEXPLAINED WEIGHT LOSS R63.4. Abdominal pain. Patient has lost 40 pounds. EXAMINATION: Enhanced CT scan of the abdomen and pelvis: 11/12/2023. COMPARISON: Enhanced CT scan of the abdomen and pelvis: 08/16/2023. TECHNIQUE: 3 mm axial images from lung bases through ischial tuberosities following administration of intravenous as well as oral contrast were obtained. Sagittal, coronal reconstructions were also performed. FINDINGS: There are no focal abnormalities of the visualized lung bases. The heart size seems normal. There are no filling defects in the cardiac chambers. There is a small sliding-type hiatus hernia. CT ABDOMEN: The liver is homogeneously low in attenuation compatible with fatty liver. The gallbladder, spleen, pancreas, adrenal glands, kidneys appear normal. There is symmetrical bilateral perinephric fat stranding. The abdominal aorta is mildly atherosclerotic. There is no retroperitoneal or mesenteric adenopathy. The bowel loops are of normal caliber. There are no discrete lesions in the bowel loops. The appendix seems normal. There are few scattered diverticula in the colon. CT PELVIS: The bladder, prostate, seminal vesicles appeared normal. On the delayed phase bladder images there is no suspicious filling defects in the base of the bladder or distal ureters. The prostate seems normal. There is no pelvic adenopathy. There are no discrete focal fluid collections. There is compression deformity of superior endplate of T11 as well as compression deformity with near complete vertebral, at the level of T8, as well as mild compression deformity the partially visualized T7. These probably are chronic. The T8, T7 are not included on the previous examination. CT/CT abdomen pelvis w con IMPRESSION: 1. No obvious explanation for patient's symptoms. 2. Fatty liver. 3. Normal appendix. 4. Diverticulosis without diverticulitis. 5. Compression deformities of T7, T8, T11 of unknown chronicity. Electronically authenticated by: HILTON MULLER Date: 11/12/2023 12:46
== END 2023-11-12 09:00 | disposition home or self-care (01) ==
LOC: CT 08:59
PROVIDERS: Visit Provider Surgery
DX: R63.4 Abnormal weight loss (principal); K57.90 Diverticulosis of intestine, part unspecified, without perforation or abscess without bleeding
CPT/HCPCS: 74177; Q9967

== ENCOUNTER 2023-12-26 14:13 | Outpatient (OUT) | payer OTHER, SELFPAY ==
--- OUTSIDE RECORDS SUMMARY | 2023-12-26 14:20 | XMS_ITS | CCD ---
Author Name Unknown Address [address] [place] [address] Organization [facility] Care Team Providers Care Sales Operations Coordinator Name Role Phone Unavailable Primary Care Provider UnavailWALTER Fallon Attending Unavailable LOY ABREU Attending Unavailable LOY ABREU Referring Unavailable LOY ABREU Attending Unavailable LOY ABREU Referring Unavailable DO Crow Dean Primary Care Provider [phone] MD Vimal Thayer Emergency Provider DO Grayson Duvall Emergency Provider Keeley [facility] Ladi Gutierres Emergency Provider DO Crow Dean Attending Provider MD Loy Nicholson Emergency Provider [phone] DO Crow Dean Primary Care Provider [phone] CHAPARRO Burrows Emergency Provider MD Eldon Ambriz Admit Provider MD Eldon Ambriz Attending Provider DO Bucky Cheng Emergency Provider DO Chen Stewart Emergency Provider DO Grayson Duvall Emergency Provider [phone] DO Crow Dean Primary Care Provider Eldon Ambriz Attending Unavailab le Crow Dean Primary Care Unavailable Eldon Ambriz Admitting Unavailab Crow [facility] Unavailable Crow Dean Attending Unavailable Crow Dean Admitting Unavailable Sumanth Crow Primary Care Unavailable Bucky Cheng Admitting Unavailable Bucky Cheng Attending Unavailable Chen Acosta Admitting Unavailable Chen Acosta Attending Unavailable Crow Dean Primary Care Unavailable Crow Dean Primary Care Unavailable Grayson Duvall Admitting Unavailable TuGrayson giordano Attending Unavailable Sumanth Crow Primary Care Unavailable TuGrayson giordano Admitting Unavailable Tugiuliana, Grayson Geronimo Attending Unavailable Sumanth Crow Primary [facility] Unavailable Loy Nicholson Admitting Unavailable Bharat, Loy Attending Unavailable Vimal Thayer Admitting Unavailable Vimal Thayer Attending Unavailable Sumanth Crow [facility] Unavailable Sumanth Crow [facility] Unavailable Grayson Duvall Admitting Unavailable Grayson Duvall Attending Unavailable Ladi Mina Admitting Unavailable Ladi Mina Attending Unavailable Sumanth Crow [facility] Unavailable Sumanth Crow [facility] Unavailable Crow Dean Attending Unavailable Crow Dean [...] 10-11-2022 Episodic Other aftercare (1 source) 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; Translations: [Other group home (current) drug therapy] Onset: 11-04-2022 Episodic Other [...] Results Test Name Value Interpretation Reference Range Facility Alanine aminotransferase [En zymatic activity/volume] in Serum or PlasmaOrdered By: Kourtney Samson on 08-15-2023 ALT [Catalytic activity/Vol] 13 U/L 7-52 [facility] Albumin [Mass/volume] in Ser um or Plasma by Bromocresol green (BCG) dye binding methoOrdered By: Kourtney Samson on 08-15-2023 Albumin BCG dye [Mass/Vol] 4.3 g/dL 3.5-5.7 [facility] Alkaline phosphatase [Enzyma tic activity/volume] in Serum or PlasmaOrdered By: Kourtney Samson on 08-15-2023 ALP [Catalytic activity/Vol] 66 U/L 34-104 [facility] Aspartate aminotransferase [ Enzymatic activity/volume] in Serum or PlasmaOrdered By: Kourtney Samson on 08-15-2023 AST [Catalytic activity/Vol] 10 U/L 13-39 [facility] Basic Metabolic Panelon 07-29 Anion gap [Moles/Vol] 11.8 mmol/L Normal 6.0-15.0 [facility] Comment on above: Performed By: #### R AUDRA PANEL UPP., BIOFIRECOVNOTDE #### [facility] [address] Calcium [Mass/Vol] 9.3 mg/dL Normal 8.6-10.3 [facility] Comment on above: Performed By: #### R AUDRA PANEL UPP., BIOFIRECOVNOTDE #### [facility] [address] [place] [address] [place] Chloride [Moles/Vol] 97 mmol/L Low 98-107 [facility] Comment on above: Performed By: #### R AUDRA PANEL UPP., BIOFIRECOVNOTDE #### [facility] [address] [place] [address] [place] CO2 [Moles/Vol] 30.3 mmol/L Normal 21.0-31.0 [facility] Comment on above: Performed By: #### R AUDRA PANEL UPP., BIOFIRECOVNOTDE #### [facility] [address] [place] [address] [place] Creatinine [Mass/Vol] 1.30 mg/dL Normal 0.70-1.30 [facility] Comment on above: Performed By: #### R AUDRA PANEL UPP., BIOFIRECOVNOTDE #### [facility] [address] [place] [address] [place] Creatinine Clr Calc Pharmacy 69.19 [facility] Comment on above: Performed By: #### R AUDRA PANEL UPP., BIOFIRECOVNOTDE #### [facility] [address] [place] [address] [place] GFR/1.73 sq M.predicted MDRD (S/P/Bld) [Vol rate/Area] mL/min/{1.73_m2} Normal [facility] Comment on above: Performed By: #### R AUDRA PANEL UPP., BIOFIRECOVNOTDE #### [facility] [address] [place] [address] [place] Glucose [Mass/Vol] 181 mg/dL High 70-100 [facility] Comment on above: Result Comment: [facility] Glucose Reference Range is dependent on time and content of last meal. Glucose of more than 200 mg/dL in a nonstressed, ambulatory subject supports the diagnosis of Diabetes Mellitus. ADA recommended reference range Performed By: #### R AUDRA PANEL UPP., BIOFIRECOVNOTDE #### [facility] [address] [place] [address] Potassium [Moles/Vol] 4.1 mmol/L Normal 3.5-5.1 [facility] Comment on above: Performed By: #### R AUDRA PANEL UPP., BIOFIRECOVNOTDE #### [address] Sodium [Moles/Vol] 135 mmol/L Low 136-145 [facility] Comment on above: Performed By: #### R AUDRA PANEL UPP., BIOFIRECOVNOTDE #### [address] Urea nitrogen [Mass/Vol] 23 mg/dL Normal 7-25 [facility] Comment on above: Performed By: #### R AUDRA PANEL UPP., BIOFIRECOVNOTDE #### [facility] [address] [place] [address] [place] Basophils Auto (Bld) [#/Vol] Ordered By: Kourtney Samson on 08-15-2023 Basophils (Bld) [#/Vol] 0.1 10*3/uL 0.0-0.2 [facility] Basophils/100 WBC Auto (Bld) Ordered By: Kourtney Samson on 08-15-2023 Basophils/100 WBC (Bld) 0.9 % . [facility] Bilirubin.direct [Mass/volum e] in Serum or PlasmaOrdered By: Kourtney Samson on 08-15-2023 Bilirubin.direct [Mass/Vol] 0.20 mg/dL 0.03-0.18 [facility] Bilirubin.total [Mass/volume ] in Serum or PlasmaOrdered By: Kourtney Samson on 08-15-2023 Bilirubin [Mass/Vol] 1.1 mg/dL 0.3-1.0 [facility] Calcium [Mass/volume] in Ser um or PlasmaOrdered By: Kourtney Samson on 08-15-2023 Calcium [Mass/Vol] 9.3 mg/dL 8.6-10.3 [facility] Carbon dioxide, total [Moles /volume] in Serum or PlasmaOrdered By: Kourtney Samson on 08-15-2023 CO2 [Moles/Vol] 30.3 mmol/L 21.0-31.0 [facility] Chloride [Moles/volume] in S tino or PlasmaOrdered By: Kourtney Samson on 08-15-2023 Chloride [Moles/Vol] 97 mmol/L 98-107 [facility] Complete Blood Count Auto Di ffon 08-15-2023 Basophils (Bld) [#/Vol] 0.1 10*3/uL Normal 0.0-0.2 [facility] Comment on above: Result Comment: PERF ORMED BY: [place] [address] PATHOLOGIST MICROFILM MOUNTER ANIL GUAMAN M.D. Performed By: #### C BC, LIPASE, HEPATIC, BMP #### [facility] [address] [place] [address] [place] Basophils/100 WBC (Bld) 0.9 % Normal . [facility] Comment on above: Performed By: #### C BC, LIPASE, HEPATIC, BMP #### [facility] [address] [place] [address] [place] Eosinophils (Bld) [#/Vol] 0.1 10*3/uL Normal 0.0-0.45 [facility] Comment on above: Performed By: #### C BC, LIPASE, HEPATIC, BMP #### [facility] [address] [place] [address] [place] Eosinophils/100 WBC (Bld) 1.6 % Normal . [facility] Comment on above: Performed By: #### C BC, LIPASE, HEPATIC, BMP #### [address] Erythrocyte distribution width (RBC) [Ratio] 13.6 % Normal 12.0-14.8 [facility] Comment on above: Performed By: #### C BC, LIPASE, HEPATIC, BMP #### [address] Hematocrit (Bld) [Volume fraction] 40.9 % Normal 38.8-50.0 [facility] Comment on above: Performed By: #### C BC, LIPASE, HEPATIC, BMP #### [address] Hemoglobin (Bld) [Mass/Vol] 14.3 g/dL Normal 13.0-17.0 [facility] Comment on above: Performed By: #### C BC, LIPASE, HEPATIC, BMP #### [address] Lymphocytes (Bld) [#/Vol] 2.4 10*3/uL Normal 1.00-4.8 [facility] Comment on above: Performed By: #### C BC, LIPASE, HEPATIC, BMP #### [address] Lymphocytes/100 WBC (Bld) 38.6 % Normal . [facility] Comment on above: Performed By: #### C BC, LIPASE, HEPATIC, BMP #### [address] MCH (RBC) [Entitic mass] 32.8 pg Normal 27.5-35.2 [facility] Comment on above: Performed By: #### C BC, LIPASE, HEPATIC, BMP #### [address] MCV (RBC) [Entitic vol] 94.0 fL Normal 83.5-101 [facility] Comment on above: Performed By: #### C BC, LIPASE, HEPATIC, BMP #### [facility] [address] Mean Corpuscular HGB Conc 34.9 g/dL Normal 32.5-35.6 [facility] Comment on above: Performed By: #### C BC, LIPASE, HEPATIC, BMP #### [facility] [address] Monocytes (Bld) [#/Vol] 0.4 10*3/uL Normal 0.0-0.8 [facility] Comment on above: Performed By: #### C BC, LIPASE, HEPATIC, BMP #### [facility] [address] [place] [address] [place] Monocytes/100 WBC (Bld) 17.28 % Normal 0.00-20.00 [facility] Comment on above: Performed By: #### C BC, LIPASE, HEPATIC, BMP #### [facility] [address] [place] [address] [place] Monocytes/100 WBC (Bld) 7.2 % Normal . [facility] Comment on above: Performed By: #### C BC, LIPASE, HEPATIC, BMP #### [facility] [address] [place] [address] [place] Neutrophils (Bld) [#/Vol] 3.2 10*3/uL Normal 1.8-7.7 [facility] Comment on above: Performed By: #### C BC, LIPASE, HEPATIC, BMP #### [place] [address] [place] Neutrophils/100 WBC (Bld) 51.7 % Normal . [facility] Comment on above: Performed By: #### C BC, LIPASE, HEPATIC, BMP #### [facility] [address] [place] [address] [place] NRBC% 0.1 /100{WBC} Normal 0-0.5 [facility] Comment on above: Performed By: #### C BC, LIPASE, HEPATIC, BMP #### [facility] [address] Platelet mean volume (Bld) [Entitic vol] 8.3 fL Normal 6.6-10.1 [facility] Comment on above: Performed By: #### C BC, LIPASE, HEPATIC, BMP #### [facility] [address] Platelets (Bld) [#/Vol] 202 10*3/uL Normal 150-450 [facility] Comment on above: Performed By: #### C BC, LIPASE, HEPATIC, BMP #### [facility] [address] RBC (Bld) [#/Vol] 4.35 10*6/uL Normal 3.90-5.60 [facility] Comment on above: Performed By: #### C BC, LIPASE, HEPATIC, BMP #### [facility] [address] WBC (Bld) [#/Vol] 6.2 10*3/uL Normal 4.1-10.5 [facility] Comment on above: Performed By: #### C BC, LIPASE, HEPATIC, BMP #### [facility] [address] Creatinine [Mass/volume] in Serum or PlasmaOrdered By: Kourtney Samson on 08-15-2023 Creatinine [Mass/Vol] 1.30 mg/dL 0.70-1.30 [facility] Eosinophils Auto (Bld) [#/Vo l]Ordered By: Kourtney Samson on 08-15-2023 Eosinophils (Bld) [#/Vol] 0.1 10*3/uL 0.0-0.45 [facility] Eosinophils/100 WBC Auto (Bl d)Ordered By: Kourtney Samson on 08-15-2023 Eosinophils/100 WBC (Bld) 1.6 % . [facility] Erythrocyte distribution wid th Auto (RBC) [Ratio]Ordered By: Kourtney Samson on 08-15-2023 Erythrocyte distribution width (RBC) [Ratio] 13.6 % 12.0-14.8 [facility] Globulin Calc (S) [Mass/Vol] Ordered By: Kourtney Samson on 08-15-2023 Globulin (S) [Mass/Vol] 3.3 g/dL [facility] Glucose [Mass/volume] in Ser um or PlasmaOrdered By: Kourtney Samson on 08-15-2023 Glucose [Mass/Vol] 181 mg/dL 70-100 [facility] Comment on above: ADA recommended refe rence rangeRandom Glucose Reference Range is dependent on time and content of last meal. Glucose of more than 200 mg/dL in a nonstressed, ambulatory subject supports the diagnosis of Diabetes Mellitus. Hematocrit Auto (Bld) [Volum e fraction]Ordered By: Kourtney Samson on 08-15-2023 Hematocrit (Bld) [Volume fraction] 40.9 % 38.8-50.0 [facility] Hemoglobin [Mass/volume] in BloodOrdered By: Kourtney Samson on 08-15-2023 Hemoglobin (Bld) [Mass/Vol] 14.3 g/dL 13.0-17.0 [facility] Hepatic Panelon 08-15-2023 Albumin [Mass/Vol] 4.3 g/dL Normal 3.5-5.7 [facility] Comment on above: Performed By: #### C BC, LIPASE, HEPATIC, BMP #### [facility] [address] Albumin/Globulin [Mass ratio] 1.3 {ratio} Normal [facility] Comment on above: Performed By: #### C BC, LIPASE, HEPATIC, BMP #### [facility] [address] ALP [Catalytic activity/Vol] 66 U/L Normal 34-104 [facility] Comment on above: Performed By: #### C BC, LIPASE, HEPATIC, BMP #### [facility] [address] [place] [id number] [place] ALT [Catalytic activity/Vol] 13 U/L Normal 7-52 [facility] Comment on above: Performed By: #### C BC, LIPASE, HEPATIC, BMP #### [facility] [address] [place] [id number] [place] AST [Catalytic activity/Vol] 10 U/L Low 13-39 [facility] Comment on above: Performed By: #### C BC, LIPASE, HEPATIC, BMP #### [facility] [address] [place] [id number] [place] Bilirubin [Mass/Vol] 1.1 mg/dL High 0.3-1.0 [facility] Comment on above: Performed By: #### C BC, LIPASE, HEPATIC, BMP #### [facility] [address] Bilirubin,Indirect 0.9 mg/dL Normal [facility] Comment on above: Performed By: #### C BC, LIPASE, HEPATIC, BMP #### [address] Bilirubin.indirect [Mass/Vol] 0.20 mg/dL High 0.03-0.18 [facility] Comment on above: Performed By: #### C BC, LIPASE, HEPATIC, BMP #### [address] Globulin (S) [Mass/Vol] 3.3 g/dL Normal [facility] Comment on above: Performed By: #### C BC, LIPASE, HEPATIC, BMP #### [address] Protein [Mass/Vol] 7.6 g/dL Normal 6.4-8.9 [facility] Comment on above: Performed By: #### C BC, LIPASE, HEPATIC, BMP #### [address] Leukocytes [#/volume] correc billy for nucleated erythrocytes in Blood by Automated counOrdered By: Kourtney Samson on 08-15-2023 WBC corrected for nucl RBC Auto (Bld) [#/Vol] 6.2 10*3/uL 4.1-10.5 [facility] Lipaseon 08-15-2023 Lipase [Catalytic activity/Vol] 59.0 U/L Normal 11.0-82.0 [facility] Comment on above: Result Comment: PERF ORMED BY: [place] [address] PATHOLOGIST MICROFILM MOUNTER ANIL GUAMAN M.D. Performed By: #### R AUDRA PANEL UPP., BIOFIRECOVNOTDE #### [place] [address] [facility] Lipase [Enzymatic activity/v olume] in Serum or PlasmaOrdered By: Kourtney Samson on 08-15-2023 Lipase [Catalytic activity/Vol] 59.0 U/L 11.0-82.0 [facility] Lymphocytes Auto (Bld) [#/Vo l]Ordered By: Kourtney Samson on 08-15-2023 Lymphocytes (Bld) [#/Vol] 2.4 10*3/uL 1.00-4.8 [facility] Lymphocytes/100 WBC Auto (Bl d)Ordered By: Kourtney Samson on 08-15-2023 Lymphocytes/100 WBC (Bld) 38.6 % . [facility] MCH Auto (RBC) [Entitic mass ]Ordered By: Kourtney Samson on 08-15-2023 MCH (RBC) [Entitic mass] 32.8 pg 27.5-35.2 [facility] MCHC Auto (RBC) [Mass/Vol]Or dered By: Kourtney Samson on 08-15-2023 MCHC (RBC) [Mass/Vol] 34.9 g/dL 32.5-35.6 [facility] MCV Auto (RBC) [Entitic vol] Ordered By: Kourtney Samson on 08-15-2023 MCV (RBC) [Entitic vol] 94.0 fL 83.5-101 [facility] Monocyte distribution width [Entitic volume] in Blood by AutomatedOrdered By: Kourtney Samson on 08-15-2023 Monocyte distribution width Auto (Bld) [Entitic vol] 17.28 % 0.00-20.00 [facility] Monocytes Auto (Bld) [#/Vol] Ordered By: Kourtney Samson on 08-15-2023 Monocytes (Bld) [#/Vol] 0.4 10*3/uL 0.0-0.8 [facility] Monocytes/100 WBC Auto (Bld) Ordered By: Kourtney Samson on 08-15-2023 Monocytes/100 WBC (Bld) 7.2 % . [facility] Neutrophils Auto (Bld) [#/Vo l]Ordered By: Kourtney Samsno on 08-15-2023 Neutrophils (Bld) [#/Vol] 3.2 10*3/uL 1.8-7.7 [facility] Neutrophils/100 WBC Auto (Bl d)Ordered By: Kourtney Samson on 08-15-2023 Neutrophils/100 WBC (Bld) 51.7 % . [facility] No Panel InformationOrdered By: Kourtney Samson on 08-15-2023 Estimated GFR (CKD-EPI) > 60.0 mL/Min [facility] Creatinine Clearance (Chem 69.19 [facility] Nucleated erythrocytes [Pres ence] in Blood by Automated countOrdered By: Kourtney Samson on 08-15-2023 Nucleated RBC Auto Ql (Bld) 0.1 /100{WBC} 0-0.5 [facility] Platelet mean volume Auto (B ld) [Entitic vol]Ordered By: Kourtney Samson on 08-15-2023 Platelet mean volume (Bld) [Entitic vol] 8.3 fL 6.6-10.1 [facility] Platelets Auto (Bld) [#/Vol] Ordered By: Kourtney Samson on 08-15-2023 Platelets (Bld) [#/Vol] 202 10*3/uL 150-450 [facility] Potassium [Moles/volume] in Serum or PlasmaOrdered By: Kourtney Samson on 08-15-2023 Potassium [Moles/Vol] 4.1 mmol/L 3.5-5.1 [facility] Protein [Mass/volume] in Ser um or PlasmaOrdered By: Kourtney Samson on 08-15-2023 Protein [Mass/Vol] 7.6 g/dL 6.4-8.9 [facility] RBC Auto (Bld) [#/Vol]Ordere d By: Kourtney Samson on 08-15-2023 RBC (Bld) [#/Vol] 4.35 10*6/uL 3.90-5.60 [facility] Serum or plasma albumin/glob ulin mass ratioOrdered By: Kourtney Samson on 08-15-2023 Albumin/Globulin [Mass ratio] 1.3 {ratio} [facility] Serum or plasma anion gap de terminationOrdered By: Kourtney Samson on 08-15-2023 Anion gap [Moles/Vol] 11.8 mmol/L 6.0-15.0 [facility] Serum or plasma non-glucuron idated bilirubin measurement (mass/volume)Ordered By: Kourtney Samson on 08-15-2023 Bilirubin.indirect [Mass/Vol] 0.9 mg/dL [facility] Sodium [Moles/volume] in Ser um or PlasmaOrdered By: Kourtney Samson on 08-15-2023 Sodium [Moles/Vol] 135 mmol/L 136-145 [facility] Urea nitrogen [Mass/volume] in Serum or PlasmaOrdered By: Kourtney Samson on 08-15-2023 Urea nitrogen [Mass/Vol] 23 mg/dL 7-25 [facility] WBC Auto (Bld) [#/Vol]Ordere d By: Kourtney Samson on 08-15-2023 WBC (Bld) [#/Vol] 6.2 10*3/uL 4.1-10.5 [facility] Alanine aminotransferase [En zymatic activity/volume] in Serum or PlasmaOrdered By: Grayson Duvall on 07-23-2023 ALT [Catalytic activity/Vol] 19 U/L 7-52 [facility] Albumin [Mass/volume] in Ser um or Plasma by Bromocresol green (BCG) dye binding methoOrdered By: Grayson Duvall on 07-23-2023 Albumin BCG dye [Mass/Vol] 4.7 g/dL 3.5-5.7 [facility] Alkaline phosphatase [Enzyma tic activity/volume] in Serum or PlasmaOrdered By: Grayson Duvall on 07-23-2023 ALP [Catalytic activity/Vol] 65 U/L 34-104 [facility] Aspartate aminotransferase [ Enzymatic activity/volume] in Serum or PlasmaOrdered By: Grayson Duvall on 07-23-2023 AST [Catalytic activity/Vol] 16 U/L 13-39 [facility] Basophils Auto (Bld) [#/Vol] Ordered By: Grayson Duvall on 07-23-2023 Basophils (Bld) [#/Vol] 0.1 10*3/uL 0.0-0.2 [facility] Basophils/100 WBC Auto (Bld) Ordered By: Grayson Duvall on 07-23-2023 Basophils/100 WBC (Bld) 0.8 % . [facility] Bilirubin.total [Mass/volume ] in Serum or PlasmaOrdered By: Grayson Duvall on 07-23-2023 Bilirubin [Mass/Vol] 0.8 mg/dL 0.3-1.0 [facility] Calcium [Mass/volume] in Ser um or PlasmaOrdered By: Grayson Duvall on 07-23-2023 Calcium [Mass/Vol] 9.3 mg/dL 8.6-10.3 [facility] Carbon dioxide, total [Moles /volume] in Serum or PlasmaOrdered By: Grayson Duvall on 07-23-2023 CO2 [Moles/Vol] 28.5 mmol/L 21.0-31.0 [facility] Chloride [Moles/volume] in S tino or PlasmaOrdered By: Grayson Duvall on 07-23-2023 Chloride [Moles/Vol] 95 mmol/L 98-107 [facility] Complete Blood Count Auto Di ffon 07-23-2023 Basophils (Bld) [#/Vol] 0.1 10*3/uL Normal 0.0-0.2 [facility] Comment on above: Result Comment: PERF ORMED BY: [place] [address] PATHOLOGIST MICROFILM MOUNTER ANIL GUAMAN M.D. Performed By: #### C MP, TSH3, LIPID #### [facility] [address] Basophils/100 WBC (Bld) 0.8 % Normal . [facility] Comment on above: Performed By: #### C MP, TSH3, LIPID #### [facility] [address] [place] [address] [place] Eosinophils (Bld) [#/Vol] 0.1 10*3/uL Normal 0.0-0.45 [facility] Comment on above: Performed By: #### C MP, TSH3, LIPID #### [facility] [address] [place] [address] [place] Eosinophils/100 WBC (Bld) 1.1 % Normal . [facility] Comment on above: Performed By: #### C MP, TSH3, LIPID #### [address] Erythrocyte distribution width (RBC) [Ratio] 13.1 % Normal 12.0-14.8 [facility] Comment on above: Performed By: #### C MP, TSH3, LIPID #### [address] Hematocrit (Bld) [Volume fraction] 39.0 % Normal 38.8-50.0 [facility] Comment on above: Performed By: #### C MP, TSH3, LIPID #### [address] Hemoglobin (Bld) [Mass/Vol] 13.6 g/dL Normal 13.0-17.0 [facility] Comment on above: Performed By: #### C MP, TSH3, LIPID #### [address] Lymphocytes (Bld) [#/Vol] 2.2 10*3/uL Normal 1.00-4.8 [facility] Comment on above: Performed By: #### C MP, TSH3, LIPID #### [address] Lymphocytes/100 WBC (Bld) 23.0 % Normal . [facility] Comment on above: Performed By: #### C MP, TSH3, LIPID #### [address] MCH (RBC) [Entitic mass] 32.5 pg Normal 27.5-35.2 [facility] Comment on above: Performed By: #### C MP, TSH3, LIPID #### [address] MCV (RBC) [Entitic vol] 93.2 fL Normal 83.5-101 [facility] Comment on above: Performed By: #### C MP, TSH3, LIPID #### [address] Mean Corpuscular HGB Conc 34.8 g/dL Normal 32.5-35.6 [facility] Comment on above: Performed By: #### C MP, TSH3, LIPID #### [facility] [address] [place] [address] [place] Monocytes (Bld) [#/Vol] 0.6 10*3/uL Normal 0.0-0.8 [facility] Comment on above: Performed By: #### C MP, TSH3, LIPID #### [facility] [address] [place] [address] [place] Monocytes/100 WBC (Bld) 18.02 % Normal 0.00-20.00 [facility] Comment on above: Performed By: #### C MP, TSH3, LIPID #### [facility] [address] [place] [address] [place] Monocytes/100 WBC (Bld) 6.7 % Normal . [facility] Comment on above: Performed By: #### C MP, TSH3, LIPID #### [facility] [address] [place] [address] [place] Neutrophils (Bld) [#/Vol] 6.5 10*3/uL Normal 1.8-7.7 [facility] Comment on above: Performed By: #### C MP, TSH3, LIPID #### [facility] [address] [place] [address] [place] Neutrophils/100 WBC (Bld) 68.4 % Normal . [facility] Comment on above: Performed By: #### C MP, TSH3, LIPID #### [facility] [address] [place] [address] [place] NRBC% 0.0 /100{WBC} Normal 0-0.5 [facility] Comment on above: Performed By: #### C MP, TSH3, LIPID #### [facility] [address] [place] [address] [place] Platelet mean volume (Bld) [Entitic vol] 8.5 fL Normal 6.6-10.1 [facility] Comment on above: Performed By: #### C MP, TSH3, LIPID #### [facility] [address] [place] [address] [place] Platelets (Bld) [#/Vol] 235 10*3/uL Normal 150-450 [facility] Comment on above: Performed By: #### C MP, TSH3, LIPID #### [facility] [facility] [address] [place] [address] RBC (Bld) [#/Vol] 4.18 10*6/uL Normal 3.90-5.60 [facility] Comment on above: Performed By: #### C MP, TSH3, LIPID #### [address] WBC (Bld) [#/Vol] 9.5 10*3/uL Normal 4.1-10.5 [facility] Comment on above: Performed By: #### C MP, TSH3, LIPID #### [address] Comprehensive Metabolic Pane rudolph 07-23-2023 Albumin [Mass/Vol] 4.7 g/dL Normal 3.5-5.7 [facility] Comment on above: Performed By: #### C MP, TSH3, LIPID #### [address] Albumin/Globulin [Mass ratio] 1.4 {ratio} Normal [facility] Comment on above: Performed By: #### C MP, TSH3, LIPID #### [address] ALP [Catalytic activity/Vol] 65 U/L Normal 34-104 [facility] Comment on above: Performed By: #### C MP, TSH3, LIPID #### [address] ALT [Catalytic activity/Vol] 19 U/L Normal 7-52 [facility] Comment on above: Performed By: #### C MP, TSH3, LIPID #### [address] Anion gap [Moles/Vol] 16.3 mmol/L High 6.0-15.0 [facility] Comment on above: Performed By: #### C MP, TSH3, LIPID #### [address] [place] [address] [place] AST [Catalytic activity/Vol] 16 U/L Normal 13-39 [facility] Comment on above: Performed By: #### C MP, TSH3, LIPID #### [facility] [address] Bilirubin [Mass/Vol] 0.8 mg/dL Normal 0.3-1.0 [facility] Comment on above: Performed By: #### C MP, TSH3, LIPID #### [facility] [address] Calcium [Mass/Vol] 9.3 mg/dL Normal 8.6-10.3 [facility] Comment on above: Performed By: #### C MP, TSH3, LIPID #### [facility] [address] Chloride [Moles/Vol] 95 mmol/L Low 98-107 [facility] Comment on above: Performed By: #### C MP, TSH3, LIPID #### [address] CO2 [Moles/Vol] 28.5 mmol/L Normal 21.0-31.0 [facility] Comment on above: Performed By: #### C MP, TSH3, LIPID #### [address] Creatinine [Mass/Vol] 1.08 mg/dL Normal 0.70-1.30 [facility] Comment on above: Performed By: #### C MP, TSH3, LIPID #### [facility] [address] [place] [address] [place] Creatinine Clr Calc Pharmacy 83.28 Normal [facility] Comment on above: Result Comment: PERF ORMED BY: [place] [address] PATHOLOGIST MICROFILM MOUNTER ANIL GUAMAN M.D. Performed By: #### C MP, TSH3, LIPID #### [place] [address] [place] GFR/1.73 sq M.predicted MDRD (S/P/Bld) [Vol rate/Area] mL/min/{1.73_m2} Normal [facility] Comment on above: Performed By: #### C MP, TSH3, LIPID #### [address] Globulin (S) [Mass/Vol] 3.3 g/dL Normal [facility] Comment on above: Performed By: #### C MP, TSH3, LIPID #### [address] Glucose [Mass/Vol] 164 mg/dL High 70-100 [facility] Comment on above: Result Comment: [facility] Glucose Reference Range is dependent on time and content of last meal. Glucose of more than 200 mg/dL in a nonstressed, ambulatory subject supports the diagnosis of Diabetes Mellitus. ADA recommended reference range Performed By: #### C MP, TSH3, LIPID #### [address] Potassium [Moles/Vol] 3.8 mmol/L Normal 3.5-5.1 [facility] Comment on above: Performed By: #### C MP, TSH3, LIPID #### [address] Protein [Mass/Vol] 8.0 g/dL Normal 6.4-8.9 [facility] Comment on above: Performed By: #### C MP, TSH3, LIPID #### [address] Sodium [Moles/Vol] 136 mmol/L Normal 136-145 [facility] Comment on above: Performed By: #### C MP, TSH3, LIPID #### [place] [address] [place] Urea nitrogen [Mass/Vol] 14 mg/dL Normal 7-25 [facility] Comment on above: Performed By: #### C MP, TSH3, LIPID #### [place] [address] [place] Creatinine [Mass/volume] in Serum or PlasmaOrdered By: Grayson Duvall on 07-23-2023 Creatinine [Mass/Vol] 1.08 mg/dL 0.70-1.30 [facility] ECG 12 lead ECGon 07-23-[address] [facility] [place] [address] [place], [place] [id number] Electrocardiograph Report Signed 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 MR#: [id number] : 1970 Acct:[id number] Age/Sex: 53 / M ADM Date: 07/22/23 Loc: ER Room: Type: [facility] ER Attending Dr: Ordering Provider: Grayson [...] Signed By Grayson Duvall DO 0517 Normal [facility] Eosinophils Auto (Bld) [#/Vo l]Ordered By: Grayson Duvall on 07-23-2023 Eosinophils (Bld) [#/Vol] 0.1 10*3/uL 0.0-0.45 [facility] Eosinophils/100 WBC Auto (Bl d)Ordered By: Grayson Duvall on 07-23-2023 Eosinophils/100 WBC (Bld) 1.1 % . [facility] Erythrocyte distribution wid th Auto (RBC) [Ratio]Ordered By: Grayson Duvall on 07-23-2023 Erythrocyte distribution width (RBC) [Ratio] 13.1 % 12.0-14.8 [facility] Globulin Calc (S) [Mass/Vol] Ordered By: Grayson Duvall on 07-23-2023 Globulin (S) [Mass/Vol] 3.3 g/dL [facility] Glucose [Mass/volume] in Ser um or PlasmaOrdered By: Grayson Duvall on 07-23-2023 Glucose [Mass/Vol] 164 mg/dL 70-100 [facility] Comment on above: ADA recommended refe rence rangeRandom Glucose Reference Range is dependent on time and content of last meal. Glucose of more than 200 mg/dL in a nonstressed, ambulatory subject supports the diagnosis of Diabetes Mellitus. Hematocrit Auto (Bld) [Volum e fraction]Ordered By: Grayson Duvall on 07-23-2023 Hematocrit (Bld) [Volume fraction] 39.0 % 38.8-50.0 [facility] Hemoglobin [Mass/volume] in BloodOrdered By: Grayson Duvall on 07-23-2023 Hemoglobin (Bld) [Mass/Vol] 13.6 g/dL 13.0-17.0 [facility] Leukocytes [#/volume] correc billy for nucleated erythrocytes in Blood by Automated counOrdered By: Grayson Duvall on 07-23-2023 WBC corrected for nucl RBC Auto (Bld) [#/Vol] 9.5 10*3/uL 4.1-10.5 [facility] Lymphocytes Auto (Bld) [#/Vo l]Ordered By: Grayson Duvall on 07-23-2023 Lymphocytes (Bld) [#/Vol] 2.2 10*3/uL 1.00-4.8 [facility] Lymphocytes/100 WBC Auto (Bl d)Ordered By: Grayson Duvall on 07-23-2023 Lymphocytes/100 WBC (Bld) 23.0 % . [facility] MCH Auto (RBC) [Entitic mass ]Ordered By: Grayson Duvall on 07-23-2023 MCH (RBC) [Entitic mass] 32.5 pg 27.5-35.2 [facility] MCHC Auto (RBC) [Mass/Vol]Or dered By: Grayson Duvall on 07-23-2023 MCHC (RBC) [Mass/Vol] 34.8 g/dL 32.5-35.6 [facility] MCV Auto (RBC) [Entitic vol] Ordered By: Grayson Duvall on 07-23-2023 MCV (RBC) [Entitic vol] 93.2 fL 83.5-101 [facility] Monocyte distribution width [Entitic volume] in Blood by AutomatedOrdered By: Grayson Duvall on 07-23-2023 Monocyte distribution width Auto (Bld) [Entitic vol] 18.02 % 0.00-20.00 [facility] Monocytes Auto (Bld) [#/Vol] Ordered By: Grayson Duvall on 07-23-2023 Monocytes (Bld) [#/Vol] 0.6 10*3/uL 0.0-0.8 [facility] Monocytes/100 WBC Auto (Bld) Ordered By: Grayson Duvall on 07-23-2023 Monocytes/100 WBC (Bld) 6.7 % . [facility] Neutrophils Auto (Bld) [#/Vo l]Ordered By: Grayson Duvall on 07-23-2023 Neutrophils (Bld) [#/Vol] 6.5 10*3/uL 1.8-7.7 [facility] Neutrophils/100 WBC Auto (Bl d)Ordered By: Grayson Duvall on 07-23-2023 Neutrophils/100 WBC (Bld) 68.4 % . [facility] No Panel InformationOrdered By: Grayson Duvall on 07-23-2023 Estimated GFR (CKD-EPI) > 60.0 mL/Min [facility] Creatinine Clearance (Chem 83.28 [facility] Nucleated erythrocytes [Pres ence] in Blood by Automated countOrdered By: Grayson Duvall on 07-23-2023 Nucleated RBC Auto Ql (Bld) 0.0 /100{WBC} 0-0.5 [facility] Platelet mean volume Auto (B ld) [Entitic vol]Ordered By: Grayson Duvall on 07-23-2023 Platelet mean volume (Bld) [Entitic vol] 8.5 fL 6.6-10.1 [facility] Platelets Auto (Bld) [#/Vol] Ordered By: Grayson Duvall on 07-23-2023 Platelets (Bld) [#/Vol] 235 10*3/uL 150-450 [facility] Potassium [Moles/volume] in Serum or PlasmaOrdered By: Grayson Duvall on 07-23-2023 Potassium [Moles/Vol] 3.8 mmol/L 3.5-5.1 [facility] Protein [Mass/volume] in Ser um or PlasmaOrdered By: Grayson Duvall on 07-23-2023 Protein [Mass/Vol] 8.0 g/dL 6.4-8.9 [facility] RBC Auto (Bld) [#/Vol]Ordere d By: Grayson Duvall on 07-23-2023 RBC (Bld) [#/Vol] 4.18 10*6/uL 3.90-5.60 [facility] Serum or plasma albumin/glob ulin mass ratioOrdered By: Grayson Duvall on 07-23-2023 Albumin/Globulin [Mass ratio] 1.4 {ratio} [facility] Serum or plasma anion gap de terminationOrdered By: Grayson Duvall on 07-23-2023 Anion gap [Moles/Vol] 16.3 mmol/L 6.0-15.0 [facility] Sodium [Moles/volume] in Ser um or PlasmaOrdered By: Grayson Duvall on 07-23-2023 Sodium [Moles/Vol] 136 mmol/L 136-145 [facility] Troponin I High Sensitivityo n 07-23-2023 Troponin I High Sensitivity 6.6 pg/mL Normal 0.0-20.0 [facility] Comment on above: Result Comment: PERF ORMED BY: [place] [address] PATHOLOGIST MICROFILM MOUNTER ANIL GUAMAN M.D. Performed By: #### C MP, TSH3, LIPID #### [place] [address] [place] Troponin I.cardiac [Mass/vol ume] in Serum or Plasma by Detection limit <= 0.01 ng/Ordered By: Grayson Duvall on 07-23-2023 Troponin I.cardiac DL <= 0.01 ng/mL [Mass/Vol] 6.6 pg/mL 0.0-20.0 [facility] Urea nitrogen [Mass/volume] in Serum or PlasmaOrdered By: Grayson Duvall on 07-23-2023 Urea nitrogen [Mass/Vol] 14 mg/dL 06-21 [facility] WBC Auto (Bld) [#/Vol]Ordere d By: Grayson Duvall on 07-23-2023 WBC (Bld) [#/Vol] 9.5 10*3/uL 4.1-10.5 [facility] XR chest 2V*on 07-23-2023 XR chest 2V* [facility] [place] [address] XRay Report Signed 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 MR#: [id number] : 1970 Acct:[id number] Age/Sex: 53 / M ADM Date: 07/22/23 Loc: ER Room: Type: [facility] ER Attending Dr: Copies to: Grayson Duvall [...] Flores Jr., D.OMickey07/23/2023 10:31 AM Dictation Location: [place] [address] Transcribed By: [facility] 07/23/23 1031 Dictated By: Stevie Flores Jr, DO 07/23/23 1030 Signed By: 07/23/23 1031 Normal [facility] Alanine aminotransferase [En zymatic activity/volume] in Serum or PlasmaOrdered By: Chen Acosta on 06-30-2023 ALT [Catalytic activity/Vol] 19 U/L [facility] Albumin [Mass/volume] in Ser um or Plasma by Bromocresol green (BCG) dye binding methoOrdered By: Chen Acosta on 06-30-2023 Albumin BCG dye [Mass/Vol] 4.2 g/dL 3.5-5.7 [facility] Alkaline phosphatase [Enzyma tic activity/volume] in Serum or PlasmaOrdered By: Chen Acosta on 06-30-2023 ALP [Catalytic activity/Vol] 59 U/L 34-104 [facility] Aspartate aminotransferase [ Enzymatic activity/volume] in Serum or PlasmaOrdered By: Chen Acosta on 06-30-2023 AST [Catalytic activity/Vol] 14 U/L 13-39 [facility] Basophils Auto (Bld) [#/Vol] Ordered By: Chen Acosta on 06-30-2023 Basophils (Bld) [#/Vol] 0.1 10*3/uL 0.0-0.2 [facility] Basophils/100 WBC Auto (Bld) Ordered By: Chen Acosta on 06-30-2023 Basophils/100 WBC (Bld) 2.0 % . [facility] Beta Hydroxybuterateon 06-30 Beta Hydroxybuterate < 0.10 Normal 0.02-0.27 [facility] Comment on above: Result Comment: PERF ORMED BY: [place] [address] PATHOLOGIST MICROFILM MOUNTER ANIL GUAMAN M.D. Performed By: #### C MP, TSH3, LIPID #### [address] Beta hydroxybutyrate [Moles/ volume] in Serum or PlasmaOrdered By: Chen Acosta on 06-30-2023 Beta hydroxybutyrate [Moles/Vol] < 0.10 mmol/L 0.02-0.27 [facility] Bilirubin Test strip Ql (U)O rdered By: Chen Acosta on 06-30-2023 Bilirubin Ql (U) Negative Negative [facility] Bilirubin.total [Mass/volume ] in Serum or PlasmaOrdered By: Chen Acosta on 06-30-2023 Bilirubin [Mass/Vol] 0.5 mg/dL 0.3-1.0 [facility] Calcium [Mass/volume] in Ser um or PlasmaOrdered By: Chen Acosta on 06-30-2023 Calcium [Mass/Vol] 9.2 mg/dL 8.6-10.3 [facility] Carbon dioxide, total [Moles /volume] in Serum or PlasmaOrdered By: Chen Acosta on 06-30-2023 CO2 [Moles/Vol] 26.7 mmol/L 21.0-31.0 [facility] Chloride [Moles/volume] in S tino or PlasmaOrdered By: Chen Acosta on 06-30-2023 Chloride [Moles/Vol] 106 mmol/L 98-107 [facility] Color Auto (U)Ordered By: adryan Dave on 06-30-2023 Color (U) Yellow Yellow [facility] Complete Blood Count Auto Di ffon 06-30-2023 Basophils (Bld) [#/Vol] 0.1 10*3/uL Normal 0.0-0.2 [facility] Comment on above: Result Comment: PERF ORMED BY: [place] [address] PATHOLOGIST MICROFILM MOUNTER ANIL GUAMAN M.D. Performed By: #### C MP, TSH3, LIPID #### [address] Basophils/100 WBC (Bld) 2.0 % Normal . [facility] Comment on above: Performed By: #### C MP, TSH3, LIPID #### [address] Eosinophils (Bld) [#/Vol] 0.1 10*3/uL Normal 0.0-0.45 [facility] Comment on above: Performed By: #### C MP, TSH3, LIPID #### [place] [address] [place] Eosinophils/100 WBC (Bld) 1.7 % Normal . [facility] Comment on above: Performed By: #### C MP, TSH3, LIPID #### [address] Erythrocyte distribution width (RBC) [Ratio] 12.9 % Normal 12.0-14.8 [facility] Comment on above: Performed By: #### C MP, TSH3, LIPID #### [place] [id number] [place] Hematocrit (Bld) [Volume fraction] 36.5 % Low 38.8-50.0 [facility] Comment on above: Performed By: #### C MP, TSH3, LIPID #### [address] Hemoglobin (Bld) [Mass/Vol] 12.8 g/dL Low 13.0-17.0 [facility] Comment on above: Performed By: #### C MP, TSH3, LIPID #### [address] Lymphocytes (Bld) [#/Vol] 1.6 10*3/uL Normal 1.00-4.8 [facility] Comment on above: Performed By: #### C MP, TSH3, LIPID #### [address] Lymphocytes/100 WBC (Bld) 33.5 % Normal . [facility] Comment on above: Performed By: #### C MP, TSH3, LIPID #### [address] MCH (RBC) [Entitic mass] 32.5 pg Normal 27.5-35.2 [facility] Comment on above: Performed By: #### C MP, TSH3, LIPID #### [address] MCV (RBC) [Entitic vol] 92.7 fL Normal 83.5-101 [facility] Comment on above: Performed By: #### C MP, TSH3, LIPID #### [address] Mean Corpuscular HGB Conc 35.0 g/dL Normal 32.5-35.6 [facility] Comment on above: Performed By: #### C MP, TSH3, LIPID #### [address] Monocytes (Bld) [#/Vol] 0.3 10*3/uL Normal 0.0-0.8 [facility] Comment on above: Performed By: #### C MP, TSH3, LIPID #### [facility] [address] [place] [address] [place] Monocytes/100 WBC (Bld) 17.72 % Normal 0.00-20.00 [facility] Comment on above: Performed By: #### C MP, TSH3, LIPID #### [facility] [address] [place] [id number] [place] Monocytes/100 WBC (Bld) 6.8 % Normal . [facility] Comment on above: Performed By: #### C MP, TSH3, LIPID #### [facility] [address] [place] [address] [place] Neutrophils (Bld) [#/Vol] 2.8 10*3/uL Normal 1.8-7.7 [facility] Comment on above: Performed By: #### C MP, TSH3, LIPID #### [facility] [address] [place] [address] [place] Neutrophils/100 WBC (Bld) 56.0 % Normal . [facility] Comment on above: Performed By: #### C MP, TSH3, LIPID #### [facility] [address] [place] [address] [place] NRBC% 0.1 /100{WBC} Normal 0-0.5 [facility] Comment on above: Performed By: #### C MP, TSH3, LIPID #### [facility] [address] [place] [address] [place] Platelet mean volume (Bld) [Entitic vol] 8.7 fL Normal 6.6-10.1 [facility] Comment on above: Performed By: #### C MP, TSH3, LIPID #### [facility] [address] [place] [address] [place] Platelets (Bld) [#/Vol] 196 10*3/uL Normal 150-450 [facility] Comment on above: Performed By: #### C MP, TSH3, LIPID #### [facility] [address] [place] [address] [place] RBC (Bld) [#/Vol] 3.94 10*6/uL Normal 3.90-5.60 [facility] Comment on above: Performed By: #### C MP, TSH3, LIPID #### [address] WBC (Bld) [#/Vol] 4.9 10*3/uL Normal 4.1-10.5 [facility] Comment on above: Performed By: #### C MP, TSH3, LIPID #### [address] Comprehensive Metabolic Pane rudolph 06-30-2023 Albumin [Mass/Vol] 4.2 g/dL Normal 3.5-5.7 [facility] Comment on above: Performed By: #### C MP, TSH3, LIPID #### [address] Albumin/Globulin [Mass ratio] 1.4 {ratio} Normal [facility] Comment on above: Performed By: #### C MP, TSH3, LIPID #### [address] ALP [Catalytic activity/Vol] 59 U/L Normal 34-104 [facility] Comment on above: Performed By: #### C MP, TSH3, LIPID #### [address] ALT [Catalytic activity/Vol] 19 U/L Normal 7-52 [facility] Comment on above: Performed By: #### C MP, TSH3, LIPID #### [address] Anion gap [Moles/Vol] 10.6 mmol/L Normal 6.0-15.0 [facility] Comment on above: Performed By: #### C MP, TSH3, LIPID #### [address] AST [Catalytic activity/Vol] 14 U/L Normal 13-39 [facility] Comment on above: Performed By: #### C MP, TSH3, LIPID #### [address] Bilirubin [Mass/Vol] 0.5 mg/dL Normal 0.3-1.0 [facility] Comment on above: Performed By: #### C MP TSH3, LIPID #### [facility] [address] Calcium [Mass/Vol] 9.2 mg/dL Normal 8.6-10.3 [facility] Comment on above: Performed By: #### C MP TSH3, LIPID #### [facility] [address] Chloride [Moles/Vol] 106 mmol/L Normal 98-107 [facility] Comment on above: Performed By: #### C MP TSH3, LIPID #### [address] CO2 [Moles/Vol] 26.7 mmol/L Normal 21.0-31.0 [facility] Comment on above: Performed By: #### C MP TSH3, LIPID #### [address] Creatinine [Mass/Vol] 0.88 mg/dL Normal 0.70-1.30 [facility] Comment on above: Performed By: #### C ORI TSH3, LIPID #### [address] Creatinine Clr Calc Pharmacy 102.21 [facility] Comment on above: Performed By: #### C MP TSH3, LIPID #### [place] [address] [place] GFR/1.73 sq M.predicted MDRD (S/P/Bld) [Vol rate/Area] mL/min/{1.73_m2} [facility] Comment on above: Performed By: #### C MP TSH3, LIPID #### [address] Globulin (S) [Mass/Vol] 2.9 g/dL [facility] Comment on above: Performed By: #### C MP, TSH3, LIPID #### [address] [place] [address] [place] Glucose [Mass/Vol] 180 mg/dL High 70-100 [facility] Comment on above: Result Comment: [place] Glucose Reference Range is dependent on time and content of last meal. Glucose of more than 200 mg/dL in a nonstressed, ambulatory subject supports the diagnosis of Diabetes Mellitus. ADA recommended reference range Performed By: #### C MP, TSH3, LIPID #### [facility] [address] Potassium [Moles/Vol] 4.3 mmol/L Normal 3.5-5.1 [facility] Comment on above: Performed By: #### C MP TSH3, LIPID #### [address] Protein [Mass/Vol] 7.1 g/dL Normal 6.4-8.9 [facility] Comment on above: Performed By: #### C MP, TSH3, LIPID #### [address] Sodium [Moles/Vol] 139 mmol/L Normal 136-145 [facility] Comment on above: Performed By: #### C MP, TSH3, LIPID #### [address] Urea nitrogen [Mass/Vol] 17 mg/dL Normal 7-25 [facility] Comment on above: Performed By: #### C MP, TSH3, LIPID #### [place] [address] [place] Creatinine [Mass/volume] in Serum or PlasmaOrdered By: Chen Acosta on 06-30-2023 Creatinine [Mass/Vol] 0.88 mg/dL 0.70-1.30 [facility] ECG 12 lead ECGon 06-30-[address]23 [address] [facility] [place] [address] [place] [address] Electrocardiograph Report Signed 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 MR#: [id number] : 1970 Acct:[id number] Age/Sex: 53 / M ADM Date: 06/30/23 Loc: ER Room: Type: [facility] ER Attending Dr: Ordering Provider: Chen Acosta [...] Inferior leads Confirmed by ERROL DELGADO DO ([id number]) on 06/30/2023 3:13:21 PM Referred By: Electronically Signed By:ERROL DELGADO DO Transcribed By: MUS Signed By Errol Delgado DO 06/30 1513 Normal [facility] Eosinophils Auto (Bld) [#/Vo l]Ordered By: Chen Acosta on 06-30-2023 Eosinophils (Bld) [#/Vol] 0.1 10*3/uL 0.0-0.45 [facility] Eosinophils/100 WBC Auto (Bl d)Ordered By: Chen Acosta on 06-30-2023 Eosinophils/100 WBC (Bld) 1.7 % . [facility] Erythrocyte distribution wid th Auto (RBC) [Ratio]Ordered By: Chen Acosta on 06-30-2023 Erythrocyte distribution width (RBC) [Ratio] 12.9 % 12.0-14.8 [facility] Globulin Calc (S) [Mass/Vol] Ordered By: Cehn Acosta on 06-30-2023 Globulin (S) [Mass/Vol] 2.9 g/dL [facility] Glucose Glucometer (BldC) [M ass/Vol]Ordered By: Chen Acosta on 06-30-2023 Glucose [Mass/Vol] 173 mg/dL [facility] Comment on above: Random Glucose Refer ence Range is dependent on time and content of last meal. Glucose of more than 200 mg/dL in a nonstressed, ambulatory subject supports the diagnosis of Diabetes Mellitus. Glucose Poct Glucometerson 0 06-30-2023 Commemt1 Glu2: Cleaned Meter Normal [facility] Comment on above: Result Comment: PERF ORMED BY: [facility] [address] [place] [address] PATHOLOGIST MICROFILM MOUNTER ANIL GUAMAN M.D. Performed By: #### R AUDRA PANEL UPP., BIOFIRECOVNOTDE #### [facility] [address] [place] [address] [place] Glucose [Mass/Vol] 173 mg/dL Normal [facility] Comment on above: Result Comment: [place] Glucose Reference Range is dependent on time and content of last meal. Glucose of more than 200 mg/dL in a nonstressed, ambulatory subject supports the diagnosis of Diabetes Mellitus. Performed By: #### R AUDRA PANEL UPP., BIOFIRECOVNOTDE #### [facility] [address] Glucose [Mass/volume] in Ser um or PlasmaOrdered By: Chen Acosta on 06-30-2023 Glucose [Mass/Vol] 180 mg/dL 70-100 [facility] Comment on above: ADA recommended refe rence rangeRandom Glucose Reference Range is dependent on time and content of last meal. Glucose of more than 200 mg/dL in a nonstressed, ambulatory subject supports the diagnosis of Diabetes Mellitus. Hematocrit Auto (Bld) [Volum e fraction]Ordered By: Chen Acosta on 06-30-2023 Hematocrit (Bld) [Volume fraction] 36.5 % 38.8-50.0 [facility] Hemoglobin [Mass/volume] in BloodOrdered By: Chen Acosta on 06-30-2023 Hemoglobin (Bld) [Mass/Vol] 12.8 g/dL 13.0-17.0 [facility] Ketones Auto test strip (U) [Mass/Vol]Ordered By: Chen Acosta on 06-30-2023 Ketones (U) [Mass/Vol] Negative Negative [facility] - Chemistry and C hemistry - challengeOrdered By: Chen Acosta on 06-30-2023 CO2 [Moles/Vol] 23.3 mmol/L 24.0-29.0 [facility] HCO3 (Bld) [Moles/Vol] 22.0 mmol/L 23.0-29.0 [facility] Leukocytes [#/volume] correc billy for nucleated erythrocytes in Blood by Automated counOrdered By: Chen Acosta on 06-30-2023 WBC corrected for nucl RBC Auto (Bld) [#/Vol] 4.9 10*3/uL 4.1-10.5 [facility] Lymphocytes Auto (Bld) [#/Vo l]Ordered By: Chen Acosta on 06-30-2023 Lymphocytes (Bld) [#/Vol] 1.6 10*3/uL 1.00-4.8 [facility] Lymphocytes/100 WBC Auto (Bl d)Ordered By: Chen Acosta on 06-30-2023 Lymphocytes/100 WBC (Bld) 33.5 % . [facility] MCH Auto (RBC) [Entitic mass ]Ordered By: Chen Acosta on 06-30-2023 MCH (RBC) [Entitic mass] 32.5 pg 27.5-35.2 [facility] MCHC Auto (RBC) [Mass/Vol]Or dered By: Chen Acosta on 06-30-2023 MCHC (RBC) [Mass/Vol] 35.0 g/dL 32.5-35.6 [facility] MCV Auto (RBC) [Entitic vol] Ordered By: Chen Acosta on 06-30-2023 MCV (RBC) [Entitic vol] 92.7 fL 83.5-101 [facility] Monocyte distribution width [Entitic volume] in Blood by AutomatedOrdered By: Chen Acosta on 06-30-2023 Monocyte distribution width Auto (Bld) [Entitic vol] 17.72 % 0.00-20.00 [facility] Monocytes Auto (Bld) [#/Vol] Ordered By: Chen Acosta on 06-30-2023 Monocytes (Bld) [#/Vol] 0.3 10*3/uL 0.0-0.8 [facility] Monocytes/100 WBC Auto (Bld) Ordered By: Chen Acosta on 06-30-2023 Monocytes/100 WBC (Bld) 6.8 % . [facility] Neutrophils Auto (Bld) [#/Vo l]Ordered By: Chen Acosta on 06-30-2023 Neutrophils (Bld) [#/Vol] 2.8 10*3/uL 1.8-7.7 [facility] Neutrophils/100 WBC Auto (Bl d)Ordered By: Chen Acosta on 06-30-2023 Neutrophils/100 WBC (Bld) 56.0 % . [facility] Nitrite Test strip Ql (U)Ord ered By: Chen Acosta on 06-30-2023 Nitrite Ql (U) Negative Negative [facility] No Panel InformationOrdered By: Chen Acosta on 06-30-2023 Bedside Glucose Comment Glu2: cleaned meter [facility] Blood Gas Critical Value See comment [facility] Comment on above: Critical Value topete d on: 06/30/2023 at 10:56 Blood Gas Sample Site Venous Fir [facility] FiO2 21 % [facility] Venous Blood Base Excess -3.1 mmol/L -3.0-3.0 [facility] Venous Blood Oxygen Saturation 77.2 % 73.0-76.0 [facility] Venous Blood Partial Pressure CO2 40.0 mm[Hg] 38.0-50.0 [facility] Venous Blood Partial Pressure O2 39.4 mm[Hg] 35.0-45.0 [facility] Venous Blood pH 7.36 7.32-7.43 [facility] Estimated GFR (CKD-EPI) > 60.0 mL/Min [facility] Creatinine Clearance (Chem 102.21 [facility] Nucleated erythrocytes [Pres ence] in Blood by Automated countOrdered By: Chen Acosta on 06-30-2023 Nucleated RBC Auto Ql (Bld) 0.1 /100{WBC} 0-0.5 [facility] Platelet mean volume Auto (B ld) [Entitic vol]Ordered By: Chen Acosta on 06-30-2023 Platelet mean volume (Bld) [Entitic vol] 8.7 fL 6.6-10.1 [facility] Platelets Auto (Bld) [#/Vol] Ordered By: Chen Acosta on 06-30-2023 Platelets (Bld) [#/Vol] 196 10*3/uL 150-450 [facility] Potassium [Moles/volume] in Serum or PlasmaOrdered By: Chen Acosta on 06-30-2023 Potassium [Moles/Vol] 4.3 mmol/L 3.5-5.1 [facility] Protein Auto test strip (U) [Mass/Vol]Ordered By: Chen Acosta on 06-30-2023 Protein (U) [Mass/Vol] Negative Negative [facility] Protein [Mass/volume] in Ser um or PlasmaOrdered By: Chen Acosta on 06-30-2023 Protein [Mass/Vol] 7.1 g/dL 6.4-8.9 [facility] RBC Auto (Bld) [#/Vol]Ordere d By: Chen Acosta on 06-30-2023 RBC (Bld) [#/Vol] 3.94 10*6/uL 3.90-5.60 [facility] Serum or plasma albumin/glob ulin mass ratioOrdered By: Chen Acosta on 06-30-2023 Albumin/Globulin [Mass ratio] 1.4 {ratio} [facility] Serum or plasma anion gap de terminationOrdered By: Chen Acosta on 06-30-2023 Anion gap [Moles/Vol] 10.6 mmol/L 6.0-15.0 [facility] Sodium [Moles/volume] in Ser um or PlasmaOrdered By: Chen Acosta on 06-30-2023 Sodium [Moles/Vol] 139 mmol/L 136-145 [facility] Specific gravity Auto test s trip (U) [Rel density]Ordered By: Chen Acosta on 06-30-2023 Specific gravity (U) [Rel density] 1.020 1.001-1.030 [facility] Urea nitrogen [Mass/volume] in Serum or PlasmaOrdered By: Chen Acosta on 06-30-2023 Urea nitrogen [Mass/Vol] 17 mg/dL 7-25 [facility] Urinalysison 06-30-2023 Appearance (U) Clear Normal Clear [facility] Comment on above: Order Comment: Reaso n for Exam Weight loss;Nausea vomiting;Type 2 diabetes mellitus with PT IS FASTING Performed By: #### C MP, TSH3, LIPID #### [facility] [address] [place] [address] [place] Bilirubin,Urine Negative Normal Negative [facility] Comment on above: Order Comment: Reaso n for Exam Weight loss;Nausea vomiting;Type 2 diabetes mellitus with PT IS FASTING Performed By: #### C MP, TSH3, LIPID #### [facility] [address] [place] [address] [place] Color (U) Yellow Normal Yellow [facility] Comment on above: Order Comment: Reaso n for Exam Weight loss;Nausea vomiting;Type 2 diabetes mellitus with PT IS FASTING Performed By: #### C MP, TSH3, LIPID #### [facility] [address] [place] [address] [place] Glucose Ql (U) 500 mg/dL High Normal [facility] Comment on above: Order Comment: Reaso n for Exam Weight loss;Nausea vomiting;Type 2 diabetes mellitus with PT IS FASTING Performed By: #### C MP, TSH3, LIPID #### [facility] [address] [place] [address] [place] Ketones Ql (U) Negative Normal Negative [facility] Comment on above: Order Comment: Reaso n for Exam Weight loss;Nausea vomiting;Type 2 diabetes mellitus with PT IS FASTING Performed By: #### C MP, TSH3, LIPID #### [facility] [address] [place] [address] [place] Leukocyte esterase Test strip Ql (U) Negative Normal Negative [facility] Comment on above: Order Comment: Reaso n for Exam Weight loss;Nausea vomiting;Type 2 diabetes mellitus with PT IS FASTING Performed By: #### C MP, TSH3, LIPID #### [facility] [address] [place] [address] [place] Nitrite,Urine Negative Normal Negative [facility] Comment on above: Order Comment: Reaso n for Exam Weight loss;Nausea vomiting;Type 2 diabetes mellitus with PT IS FASTING Performed By: #### C MP, TSH3, LIPID #### [facility] [address] [place] [address] [place] Occult Blood,Urine Negative Normal Negative [facility] Comment on above: Order Comment: Reaso n for Exam Weight loss;Nausea vomiting;Type 2 diabetes mellitus with PT IS FASTING Result Comment: PERF ORMED BY: [place] [address] PATHOLOGIST [employer] ANIL GUAMAN M.D. Performed By: #### C MP, TSH3, LIPID #### [address] pH (U) 5.5 [pH] Normal 5.0-9.0 [facility] Comment on above: Order Comment: Reaso n for Exam Weight loss;Nausea vomiting;Type 2 diabetes mellitus with PT IS FASTING Performed By: #### C MP, TSH3, LIPID #### [place] [address] [place] Protein,Urine Negative Normal Negative [facility] Comment on above: Order Comment: Reaso n for Exam Weight loss;Nausea vomiting;Type 2 diabetes mellitus with PT IS FASTING Performed By: #### C MP, TSH3, LIPID #### [facility] [address] [place] [address] Specificy Ho[place],Urine 1.020 Normal 1.001-1.030 [facility] Comment on above: Order Comment: Reaso n for Exam Weight loss;Nausea vomiting;Type 2 diabetes mellitus with PT IS FASTING Performed By: #### C MP, TSH3, LIPID #### [address] Urobilinogen,Urine Normal Normal Normal [facility] Comment on above: Order Comment: Reaso n for Exam Weight loss;Nausea vomiting;Type 2 diabetes mellitus with PT IS FASTING Performed By: #### C MP, TSH3, LIPID #### [facility] [address] [place] [address] [place] Urine clarity by refractomet ry automatedOrdered By: Chen Acosta on 06-30-2023 Clarity Refractometry automated (U) Clear Clear [facility] Urine glucose measurement by automated test strip (mass/volume)Ordered By: Chen Acosta on 06-30-2023 Glucose Auto test strip (U) [Mass/Vol] 500 mg/dL Normal [facility] Urine hemoglobin detection b y automated test stripOrdered By: Chen Acosta on 06-30-2023 Hemoglobin Auto test strip Ql (U) Negative Negative [facility] Urine leukocyte esterase det ection by automated test stripOrdered By: Chenalexandra Acosta on 06-30-2023 Leukocyte esterase Auto test strip Ql (U) Negative Negative [facility] Urobilinogen Auto test strip (U) [Mass/Vol]Ordered By: Chen Acosta on 06-30-2023 Urobilinogen (U) [Mass/Vol] Normal mg/dL Normal [facility] Venous Blood Gason 3 CO2 [Moles/Vol] 23.3 mmol/L Low 24.0-29.0 [facility] Comment on above: Performed By: #### C MP, TSH3, LIPID #### [address] HCO3 (Bld) [Moles/Vol] 22.0 mmol/L Low 23.0-29.0 [facility] Comment on above: Performed By: #### C MP, TSH3, LIPID #### [address] Respiratory Critical [facility] Comment on above: Result Comment: Crit ical Value called on: 06/30/2023 at 10:56 PERFORMED BY: [place] [address] PATHOLOGIST [employer] ANIL GUAMAN M.D. Performed By: #### C MP, TSH3, LIPID #### [address] VBG Base Excess -3.1 mmol/L Low -3.0-3.0 [facility] Comment on above: Performed By: #### C MP, TSH3, LIPID #### [facility] [address] [place] [address] VBG Draw Site Venous [facility] Comment on above: Performed By: #### C MP, TSH3, LIPID #### [address] VBG Frac Inspired O2 21 % Normal [facility] Comment on above: Performed By: #### C MP, TSH3, LIPID #### [facility] [address] VBG Oxygen Saturation 77.2 % High 73.0-76.0 [facility] Comment on above: Performed By: #### C MP, TSH3, LIPID #### [facility] [address] VBG PCO2 40.0 mm[Hg] Normal 38.0-50.0 [facility] Comment on above: Performed By: #### C MP, TSH3, LIPID #### [facility] [address] VBG PH Venous PH 7.36 Normal 7.32-7.43 [facility] Comment on above: Performed By: #### C MP, TSH3, LIPID #### [facility] [address] VBG PO2 39.4 mm[Hg] Normal 35.0-45.0 [facility] Comment on above: Performed By: #### C MP, TSH3, LIPID #### [facility] [address] WBC Auto (Bld) [#/Vol]Ordere d By: Chen Acosta on 06-30-2023 WBC (Bld) [#/Vol] 4.9 10*3/uL 4.1-10.5 [facility] pH Auto test strip (U)Ordere d By: Chen Acosta on 06-30-2023 pH (U) 5.5 [pH] 5.0-9.0 [facility] Alanine aminotransferase [En zymatic activity/volume] in Serum or PlasmaOrdered By: David Khan on 06-24-2023 ALT [Catalytic activity/Vol] 19 U/L 7-52 [facility] Albumin [Mass/volume] in Ser um or Plasma by Bromocresol green (BCG) dye binding methoOrdered By: David Khan on 06-24-2023 Albumin BCG dye [Mass/Vol] 4.1 g/dL 3.5-5.7 [facility] Alkaline phosphatase [Enzyma tic activity/volume] in Serum or PlasmaOrdered By: David Khan on 06-24-2023 ALP [Catalytic activity/Vol] 62 U/L 34-104 [facility] Aspartate aminotransferase [ Enzymatic activity/volume] in Serum or PlasmaOrdered By: Davidfátima OlsenBill on 06-24-2023 AST [Catalytic activity/Vol] 14 U/L 13-39 [facility] Automated erythrocytes count in urine sediment (number/area)Ordered By: David Bill on 06-24-2023 RBC Auto (Urine sed) [#/Area] 1-2 [HPF] 0-4 [facility] Automated leukocytes count i n urine sediment (number/area)Ordered By: [facility] Bill on 06-24-2023 WBC Auto (Urine sed) [#/Area] 1-2 [HPF] 0-4 [facility] B-Type Natriuretic Peptideon 06-24-2023 Natriuretic peptide B (Bld) [Mass/Vol] 17.0 pg/mL Normal 5-100 [facility] Comment on above: Result Comment: PERF ORMED BY: [place] [address] PATHOLOGIST [employer] ANIL GUAMAN M.D. Performed By: #### C MP, TSH3, LIPID #### [address] Basophils Auto (Bld) [#/Vol] Ordered By: David Bill on 06-24-2023 Basophils (Bld) [#/Vol] 0.1 10*3/uL 0.0-0.2 [facility] Basophils/100 WBC Auto (Bld) [facility]: [facility] Basophils/100 WBC (Bld) 0.7 % . [facility] Bilirubin Test strip Ql (U)O rdered By: David Khan on 06-24-2023 Bilirubin Ql (U) 1+ Negative [facility] Bilirubin.total [Mass/volume ] in Serum or PlasmaOrdered By: David Bill on 06-24-2023 Bilirubin [Mass/Vol] 0.6 mg/dL 0.3-1.0 [facility] Calcium [Mass/volume] in Ser um or PlasmaOrdered By: David Khan on 06-24-2023 Calcium [Mass/Vol] 8.8 mg/dL 8.6-10.3 [facility] Carbon dioxide, total [Moles /volume] in Serum or PlasmaOrdered By: David Bill on 06-24-2023 CO2 [Moles/Vol] 26.1 mmol/L 21.0-31.0 [facility] Chloride [Moles/volume] in S tino or PlasmaOrdered By: David Bill on 06-24-2023 Chloride [Moles/Vol] 95 mmol/L 98-107 [facility] Color Auto (U)Ordered By: An am Bill on 06-24-2023 Color (U) Dark yellow Yellow [facility] Complete Blood Count Auto Di ffon 06-24-2023 Basophils (Bld) [#/Vol] 0.1 10*3/uL Normal 0.0-0.2 [facility] Comment on above: Result Comment: PERF ORMED BY: [place] [address] PATHOLOGIST [employer] ANIL GUAMAN M.D. Performed By: #### C MP, TSH3, LIPID #### [facility] [address] [place] [address] Basophils/100 WBC (Bld) 0.7 % Normal . [facility] Comment on above: Performed By: #### C MP, TSH3, LIPID #### [facility] [address] [place] [address] [place] Eosinophils (Bld) [#/Vol] 0.0 10*3/uL Normal 0.0-0.45 [facility] Comment on above: Performed By: #### C MP, TSH3, LIPID #### [facility] [address] [place] [address] [place] Eosinophils/100 WBC (Bld) 0.4 % Normal . [facility] Comment on above: Performed By: #### C MP, TSH3, LIPID #### [facility] [address] [place] [address] [place] Erythrocyte distribution width (RBC) [Ratio] 12.7 % Normal 12.0-14.8 [facility] Comment on above: Performed By: #### C MP, TSH3, LIPID #### [address] Hematocrit (Bld) [Volume fraction] 38.2 % Low 38.8-50.0 [facility] Comment on above: Performed By: #### C MP, TSH3, LIPID #### [address] Hemoglobin (Bld) [Mass/Vol] 13.4 g/dL Normal 13.0-17.0 [facility] Comment on above: Performed By: #### C MP, TSH3, LIPID #### [address] Lymphocytes (Bld) [#/Vol] 1.2 10*3/uL Normal 1.00-4.8 [facility] Comment on above: Performed By: #### C MP, TSH3, LIPID #### [address] Lymphocytes/100 WBC (Bld) 13.5 % Normal . [facility] Comment on above: Performed By: #### C MP, TSH3, LIPID #### [address] MCH (RBC) [Entitic mass] 33.0 pg Normal 27.5-35.2 [facility] Comment on above: Performed By: #### C MP, TSH3, LIPID #### [address] MCV (RBC) [Entitic vol] 94.0 fL Normal 83.5-101 [facility] Comment on above: Performed By: #### C MP, TSH3, LIPID #### [address] Mean Corpuscular HGB Conc 35.1 g/dL Normal 32.5-35.6 [facility] Comment on above: Performed By: #### C MP, TSH3, LIPID #### [facility] [address] [place] [address] [place] Monocytes (Bld) [#/Vol] 0.5 10*3/uL Normal 0.0-0.8 [facility] Comment on above: Performed By: #### C MP, TSH3, LIPID #### [facility] [address] [place] [address] [place] Monocytes/100 WBC (Bld) 19.27 % Normal 0.00-20.00 [facility] Comment on above: Performed By: #### C MP, TSH3, LIPID #### [facility] [address] [place] [address] [place] Monocytes/100 WBC (Bld) 5.2 % Normal . [facility] Comment on above: Performed By: #### C MP, TSH3, LIPID #### [facility] [address] [place] [address] [place] Neutrophils (Bld) [#/Vol] 7.0 10*3/uL Normal 1.8-7.7 [facility] Comment on above: Performed By: #### C MP, TSH3, LIPID #### [facility] [address] [place] [address] [place] Neutrophils/100 WBC (Bld) 80.2 % Normal . [facility] Comment on above: Performed By: #### C MP, TSH3, LIPID #### [facility] [address] [place] [address] [place] NRBC% 0.1 /100{WBC} Normal 0-0.5 [facility] Comment on above: Performed By: #### C MP, TSH3, LIPID #### [facility] [address] [place] [address] [place] Platelet mean volume (Bld) [Entitic vol] 8.6 fL Normal 6.6-10.1 [facility] Comment on above: Performed By: #### C MP, TSH3, LIPID #### [facility] [address] [place] [address] [place] Platelets (Bld) [#/Vol] 204 10*3/uL Normal 150-450 [facility] Comment on above: Performed By: #### C MP, TSH3, LIPID #### [facility] [address] [place] [address] RBC (Bld) [#/Vol] 4.07 10*6/uL Normal 3.90-5.60 [facility] Comment on above: Performed By: #### C MP, TSH3, LIPID #### [address] WBC (Bld) [#/Vol] 8.7 10*3/uL Normal 4.1-10.5 [facility] Comment on above: Performed By: #### C MP, TSH3, LIPID #### [address] Comprehensive Metabolic Pane rudolph 06-24-2023 Albumin [Mass/Vol] 4.1 g/dL Normal 3.5-5.7 [facility] Comment on above: Performed By: #### C MP, TSH3, LIPID #### [address] Albumin/Globulin [Mass ratio] 1.4 {ratio} Normal [facility] Comment on above: Performed By: #### C MP, TSH3, LIPID #### [address] ALP [Catalytic activity/Vol] 62 U/L Normal 34-104 [facility] Comment on above: Performed By: #### C MP, TSH3, LIPID #### [address] ALT [Catalytic activity/Vol] 19 U/L Normal 7-52 [facility] Comment on above: Performed By: #### C MP, TSH3, LIPID #### [facility] [address] [place] [address] Anion gap [Moles/Vol] 14.6 mmol/L Normal 6.0-15.0 [facility] Comment on above: Performed By: #### C MP, TSH3, LIPID #### [address] AST [Catalytic activity/Vol] 14 U/L Normal 13-39 [facility] Comment on above: Performed By: #### C MP, TSH3, LIPID #### [facility] [address] Bilirubin [Mass/Vol] 0.6 mg/dL Normal 0.3-1.0 [facility] Comment on above: Performed By: #### C MP, TSH3, LIPID #### [facility] [address] Calcium [Mass/Vol] 8.8 mg/dL Normal 8.6-10.3 [facility] Comment on above: Performed By: #### C MP, TSH3, LIPID #### [address] Chloride [Moles/Vol] 95 mmol/L Low 98-107 [facility] Comment on above: Performed By: #### C MP, TSH3, LIPID #### [facility] [address] [place] [address] CO2 [Moles/Vol] 26.1 mmol/L Normal 21.0-31.0 [facility] Comment on above: Performed By: #### C MP, TSH3, LIPID #### [address] Creatinine [Mass/Vol] 1.64 mg/dL High 0.70-1.30 [facility] Comment on above: Performed By: #### C MP, TSH3, LIPID #### [facility] [address] [place] [address] Creatinine Clr Calc Pharmacy 53.79 Normal [facility] Comment on above: Result Comment: PERF ORMED BY: [place] [address] PATHOLOGIST [employer] ANIL GUAMAN M.D. Performed By: #### C MP, TSH3, LIPID #### [address] GFR/1.73 sq M.predicted MDRD (S/P/Bld) [Vol rate/Area] 49.706 mL/min/{1.73_m2} [facility] Comment on above: Performed By: #### C MP, TSH3, LIPID #### [facility] [address] Globulin (S) [Mass/Vol] 3.0 g/dL [facility] Comment on above: Performed By: #### C MP, TSH3, LIPID #### [facility] [address] Glucose [Mass/Vol] 412 mg/dL High 70-100 [facility] Comment on above: Result Comment: [facility] Glucose Reference Range is dependent on time and content of last meal. Glucose of more than 200 mg/dL in a nonstressed, ambulatory subject supports the diagnosis of Diabetes Mellitus. ADA recommended reference range Performed By: #### C MP, TSH3, LIPID #### [facility] [address] Potassium [Moles/Vol] 4.7 mmol/L Normal 3.5-5.1 [facility] Comment on above: Performed By: #### C MP, TSH3, LIPID #### [facility] [address] Protein [Mass/Vol] 7.1 g/dL Normal 6.4-8.9 [facility] Comment on above: Performed By: #### C MP, TSH3, LIPID #### [facility] [address] [place] [address] [place] Sodium [Moles/Vol] 131 mmol/L Low 136-145 [facility] Comment on above: Performed By: #### C MP, TSH3, LIPID #### [facility] [address] [place] [address] [place] Urea nitrogen [Mass/Vol] 26 mg/dL High 7-25 [facility] Comment on above: Performed By: #### C MP, TSH3, LIPID #### [facility] [address] [place] [address] [place] Creatinine [Mass/volume] in Serum or PlasmaOrdered By: David Khan on 06-24-2023 Creatinine [Mass/Vol] 1.64 mg/dL 0.70-1.30 [facility] Dipstick and Microscopicon 0 06-24-2023 Appearance (U) Clear Normal Clear [facility] Comment on above: Order Comment: Name Collection Type:: Clean-Voided Midstream Performed By: #### V BG #### Point of Care testing , Bacteria,Urine None Seen Normal None Seen [facility] Comment on above: Order Comment: Name Collection Type:: Clean-Voided Midstream Performed By: #### V BG #### Point of Care testing , Bilirubin,Urine 1+ High Negative [facility] Comment on above: Order Comment: Name Collection Type:: Clean-Voided Midstream Performed By: #### V BG #### Point of Care testing , Color (U) Dark Yellow Critically abnormal Yellow [facility] Comment on above: Order Comment: Name Collection Type:: Clean-Voided Midstream Performed By: #### V BG #### Point of Care testing , Glucose Ql (U) >=1000 High Normal [facility] Comment on above: Order Comment: Name Collection Type:: Clean-Voided Midstream Performed By: #### V BG #### Point of Care testing , Hyaline Casts,Urine 9-19 High 0-8 [facility] Comment on above: Order Comment: Name Collection Type:: Clean-Voided Midstream Result Comment: PERF ORMED BY: [facility] [address] [place] [address] PATHOLOGIST [employer] ANIL GUAMAN M.D. Performed By: #### V BG #### Point of Care testing , Ketones Ql (U) Trace High Negative [facility] Comment on above: Order Comment: Name Collection Type:: Clean-Voided Midstream Performed By: #### V BG #### Point of Care testing , Leukocyte esterase Test strip Ql (U) Negative Normal Negative [facility] Comment on above: Order Comment: Name Collection Type:: Clean-Voided Midstream Performed By: #### V BG #### Point of Care testing , Nitrite,Urine Negative Normal Negative [facility] Comment on above: Order Comment: Name Collection Type:: Clean-Voided Midstream Performed By: #### V BG #### Point of Care testing , Occult Blood,Urine Negative Normal Negative [facility] Comment on above: Order Comment: Name Collection Type:: Clean-Voided Midstream Result Comment: PERF ORMED BY: [facility] [place] [address] PATHOLOGIST [employer] ANIL GUAMAN M.D. Performed By: #### V BG #### Point of Care testing , pH (U) 5.5 [pH] Normal 5.0-9.0 [facility] Comment on above: Order Comment: Name Collection Type:: Clean-Voided Midstream Performed By: #### V BG #### Point of Care testing , Protein (U) [Mass/Vol] 30 mg/dL High Negative [facility] Comment on above: Order Comment: Name Collection Type:: Clean-Voided Midstream Performed By: #### V BG #### Point of Care testing , RBC,Urine 1-2 Normal 0-4 [facility] Comment on above: Order Comment: Name Collection Type:: Clean-Voided Midstream Performed By: #### V BG #### Point of Care testing , Specificy Hoople,Urine 1.029 Normal 1.001-1.030 [facility] Comment on above: Order Comment: Name Collection Type:: Clean-Voided Midstream Performed By: #### V BG #### Point of Care testing , Squamous Epithelial Cell,Urine 0-1 Normal 0-2 [facility] Comment on above: Order Comment: Name Collection Type:: Clean-Voided Midstream Performed By: #### V BG #### Point of Care testing , Urobilinogen,Urine Normal Normal Normal [facility] [facility] Comment on above: Order Comment: Name Collection Type:: Clean-Voided Midstream Performed By: #### V BG #### Point of Care testing , WBC,Urine 1-2 Normal 0-4 [facility] Comment on above: Order Comment: Name Collection Type:: Clean-Voided Midstream Performed By: #### V BG #### Point of Care testing , ECG 12 lead ECGon 06-24-[address] [facility] [place] [address] Electrocardiograph Report Signed 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 MR#: [id number] : 1970 Acct:[id number] Age/Sex: 52 / M ADM Date: 06/24/23 Loc: ER Room: Type: [facility] ER Attending Dr: Ordering Provider: Bucky Cheng [...] Normal ECG Confirmed by Bucky Cheng DO ([id number]) on 06/24/2023 3:55:14 PM Referred By: Electronically Signed By:Bucky Cheng DO Transcribed By: MUS Signed By Bucky Cheng DO 1555 Normal [facility] Eosinophils Auto (Bld) [#/Vo l]Ordered By: David Khan on 06-24-2023 Eosinophils (Bld) [#/Vol] 0.0 10*3/uL 0.0-0.45 [facility] Eosinophils/100 WBC Auto (Bl d)Ordered By: David Khan on 06-24-2023 Eosinophils/100 WBC (Bld) 0.4 % . [facility] Erythrocyte distribution wid th Auto (RBC) [Ratio]Ordered By: David Khan on 06-24-2023 Erythrocyte distribution width (RBC) [Ratio] 12.7 % 12.0-14.8 [facility] Globulin Calc (S) [Mass/Vol] Ordered By: David Khan on 06-24-2023 Globulin (S) [Mass/Vol] 3.0 g/dL [facility] Glucose Glucometer (BldC) [M ass/Vol]Ordered By: Bucky Cheng on 06-24-2023 Glucose [Mass/Vol] 363 mg/dL [facility] Comment on above: Random Glucose Refer ence Range is dependent on time and content of last meal. Glucose of more than 200 mg/dL in a nonstressed, ambulatory subject supports the diagnosis of Diabetes Mellitus. Glucose Poct Glucometerson 0 06-24-2023 Glucose [Mass/Vol] 363 mg/dL Normal [facility] Comment on above: Result Comment: [place] [facility] Glucose Reference Range is dependent on time and content of last meal. Glucose of more than 200 mg/dL in a nonstressed, ambulatory subject supports the diagnosis of Diabetes Mellitus. PERFORMED BY: [place] [address] PATHOLOGIST [employer] ANIL GUAMAN M.D. Performed By: #### C BC, LIPASE, HEPATIC, BMP #### [facility] [address] Glucose [Mass/volume] in Ser um or PlasmaOrdered By: David Khan on 06-24-2023 Glucose [Mass/Vol] 412 mg/dL 70-100 [facility] Comment on above: ADA recommended refe rence rangeRandom Glucose Reference Range is dependent on time and content of last meal. Glucose of more than 200 mg/dL in a nonstressed, ambulatory subject supports the diagnosis of Diabetes Mellitus. Hematocrit Auto (Bld) [Volum e fraction]Ordered By: David Khan on 06-24-2023 Hematocrit (Bld) [Volume fraction] 38.2 % 38.8-50.0 [facility] Hemoglobin [Mass/volume] in BloodOrdered By: David Khan on 06-24-2023 Hemoglobin (Bld) [Mass/Vol] 13.4 g/dL 13.0-17.0 [facility] Ketones Auto test strip (U) [Mass/Vol]Ordered By: David Khan on 06-24-2023 Ketones (U) [Mass/Vol] Trace Negative [facility] - UrinalysisOrder ed By: David Khan on 06-24-2023 Hyaline casts LM Ql (Urine sed) 9-19 [LPF] 0-8 [facility] Leukocytes [#/volume] correc iblly for nucleated erythrocytes in Blood by Automated counOrdered By: David Khan on 06-24-2023 WBC corrected for nucl RBC Auto (Bld) [#/Vol] 8.7 10*3/uL 4.1-10.5 [facility] Lymphocytes Auto (Bld) [#/Vo l]Ordered By: David Khan on 06-24-2023 Lymphocytes (Bld) [#/Vol] 1.2 10*3/uL 1.00-4.8 [facility] Lymphocytes/100 WBC Auto (Bl d)Ordered By: David Khan on 06-24-2023 Lymphocytes/100 WBC (Bld) 13.5 % . [facility] MCH Auto (RBC) [Entitic mass ]Ordered By: David Khan on 06-24-2023 MCH (RBC) [Entitic mass] 33.0 pg 27.5-35.2 [facility] MCHC Auto (RBC) [Mass/Vol]Or dered By: David Khan on 06-24-2023 MCHC (RBC) [Mass/Vol] 35.1 g/dL 32.5-35.6 [facility] MCV Auto (RBC) [Entitic vol] Ordered By: David Khan on 06-24-2023 MCV (RBC) [Entitic vol] 94.0 fL 83.5-101 [facility] Monocyte distribution width [Entitic volume] in Blood by AutomatedOrdered By: David Khan on 06-24-2023 Monocyte distribution width Auto (Bld) [Entitic vol] 19.27 % 0.00-20.00 [facility] Monocytes Auto (Bld) [#/Vol] Ordered By: David Khan on 06-24-2023 Monocytes (Bld) [#/Vol] 0.5 10*3/uL 0.0-0.8 [facility] Monocytes/100 WBC Auto (Bld) Ordered By: David Khan on 06-24-2023 Monocytes/100 WBC (Bld) 5.2 % . [facility] Natriuretic peptide B [Mass/ Vol]Ordered By: Bucky Cheng on 06-24-2023 Natriuretic peptide B (Bld) [Mass/Vol] 17.0 pg/mL 5-100 [facility] Neutrophils Auto (Bld) [#/Vo l]Ordered By: David Khan on 06-24-2023 Neutrophils (Bld) [#/Vol] 7.0 10*3/uL 1.8-7.7 [facility] Neutrophils/100 WBC Auto (Bl d)Ordered By: David Khan on 06-24-2023 Neutrophils/100 WBC (Bld) 80.2 % . [facility] Nitrite Test strip Ql (U)Ord ered By: David Khan on 06-24-2023 Nitrite Ql (U) Negative Negative [facility] No Panel InformationOrdered By: David Khan on 06-24-2023 Estimated GFR (CKD-EPI) 49.706 mL/Min [facility] Creatinine Clearance (Chem 53.79 [facility] Nucleated erythrocytes [Pres ence] in Blood by Automated countOrdered By: David Khan on 06-24-2023 Nucleated RBC Auto Ql (Bld) 0.1 /100{WBC} 0-0.5 [facility] Platelet mean volume Auto (B ld) [Entitic vol]Ordered By: David Khan on 06-24-2023 Platelet mean volume (Bld) [Entitic vol] 8.6 fL 6.6-10.1 [facility] Platelets Auto (Bld) [#/Vol] Ordered By: David Khan on 06-24-2023 Platelets (Bld) [#/Vol] 204 10*3/uL 150-450 [facility] Potassium [Moles/volume] in Serum or PlasmaOrdered By: David Khan on 06-24-2023 Potassium [Moles/Vol] 4.7 mmol/L 3.5-5.1 [facility] Protein Auto test strip (U) [Mass/Vol]Ordered By: David Khan on 06-24-2023 Protein (U) [Mass/Vol] 30 mg/dL Negative [facility] Protein [Mass/volume] in Ser um or PlasmaOrdered By: David Khan on 06-24-2023 Protein [Mass/Vol] 7.1 g/dL 6.4-8.9 [facility] RBC Auto (Bld) [#/Vol]Ordere d By: David Olsensain on 06-24-2023 RBC (Bld) [#/Vol] 4.07 10*6/uL 3.90-5.60 [facility] Serum or plasma albumin/glob ulin mass ratioOrdered By: Davidfátima OlsenBill on 06-24-2023 Albumin/Globulin [Mass ratio] 1.4 {ratio} [facility] Serum or plasma anion gap de terminationOrdered By: Davidfátima OlsenBill on 06-24-2023 Anion gap [Moles/Vol] 14.6 mmol/L 6.0-15.0 [facility] Sodium [Moles/volume] in Ser um or PlasmaOrdered By: David Bill on 06-24-2023 Sodium [Moles/Vol] 131 mmol/L 136-145 [facility] Specific gravity Auto test s trip (U) [Rel density]Ordered By: [facility] Bill on 06-24-2023 Specific gravity (U) [Rel density] 1.029 1.001-1.030 [facility] Squamous epithelial cells de tection in urine sediment by light microscopyOrdered By: Davidfátima OlsenBill on 06-24-2023 Epithelial cells.squamous LM Ql (Urine sed) 0-1 [HPF] 0-2 [facility] Troponin I High Sensitivityo n 06-24-2023 Troponin I High Sensitivity 8.4 pg/mL Normal 0.0-20.0 [facility] Comment on above: Result Comment: PERF ORMED BY: [place] [address] PATHOLOGIST [employer] ANIL GUAMAN M.D. Performed By: #### C MP, TSH3, LIPID #### [address] Troponin I.cardiac [Mass/vol ume] in Serum or Plasma by Detection limit <= 0.01 ng/Ordered By: Bucky Cheng on 06-24-2023 Troponin I.cardiac DL <= 0.01 ng/mL [Mass/Vol] 8.4 pg/mL 0.0-20.0 [facility] Urea nitrogen [Mass/volume] in Serum or PlasmaOrdered By: David Khan on 06-24-2023 Urea nitrogen [Mass/Vol] 26 mg/dL 7 [facility] Urine bacteria detection by automated methodOrdered By: David Khan on 06-24-2023 Bacteria Auto Ql (U) None seen None Seen [facility] Urine clarity by refractomet ry automatedOrdered By: David Khan on 06-24-2023 Clarity Refractometry automated (U) Clear Clear [facility] Urine glucose measurement by automated test strip (mass/volume)Ordered By: David Khan on 06-24-2023 Glucose Auto test strip (U) [Mass/Vol] >=1000 mg/dL Normal [facility] Urine hemoglobin detection b y automated test stripOrdered By: David Khan on 06-24-2023 Hemoglobin Auto test strip Ql (U) Negative Negative [facility] Urine leukocyte esterase det ection by automated test stripOrdered By: David Khan on 06-24-2023 Leukocyte esterase Auto test strip Ql (U) Negative Negative [facility] Urobilinogen Auto test strip (U) [Mass/Vol]Ordered By: David Khan on 06-24-2023 Urobilinogen (U) [Mass/Vol] Normal mg/dL Normal [facility] WBC Auto (Bld) [#/Vol]Ordere d By: David Khan on 06-24-2023 WBC (Bld) [#/Vol] 8.7 10*3/uL 4.1-10.5 [facility] XR chest 1V portableon 06-24 XR chest 1V portable [place] [id number] XRay Report Signed 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 MR#: [id number] : 1970 Acct:[id number] Age/Sex: 52 / M ADM Date: 06/24/23 Loc: ER Room: Type: [facility] ER Attending Dr: Copies to: Bucky [...] Crow Parker M.D.06/24/2023 10:45 AM Dictation Location: [place] [address] Transcribed By: [facility] 06/24/23 1045 Dictated By: Crow Parker DO 06/24/23 1044 Signed By: 06/24/23 1045 Normal [facility] pH Auto test strip (U)Ordere d By: David Khan on 06-24-2023 pH (U) 5.5 [pH] 5.0-9.0 [facility] Basic Metabolic Panelon 06-0 Anion gap [Moles/Vol] 11.2 mmol/L Normal 6.0-15.0 [facility] Comment on above: Performed By: #### V BG #### Point of Care testing , Calcium [Mass/Vol] 8.5 mg/dL Low 8.6-10.3 [facility] Comment on above: Performed By: #### V BG #### Point of Care testing , Chloride [Moles/Vol] 100 mmol/L Normal 98-107 [facility] Comment on above: Performed By: #### V BG #### Point of Care testing , CO2 [Moles/Vol] 28.5 mmol/L Normal 21.0-31.0 [facility] Comment on above: Performed By: #### V BG #### Point of Care testing , Creatinine [Mass/Vol] 0.90 mg/dL Normal 0.70-1.30 [facility] Comment on above: Performed By: #### V BG #### Point of Care testing , Creatinine Clr Calc Pharmacy 87.99 [facility] Comment on above: Performed By: #### V BG #### Point of Care testing , GFR/1.73 sq M.predicted MDRD (S/P/Bld) [Vol rate/Area] mL/min/{1.73_m2} [facility] Comment on above: Performed By: #### V BG #### Point of Care testing , Glucose [Mass/Vol] 224 mg/dL High 70-100 [facility] Comment on above: Result Comment: [facility] Glucose Reference Range is dependent on time and content of last meal. Glucose of more than 200 mg/dL in a nonstressed, ambulatory subject supports the diagnosis of Diabetes Mellitus. ADA recommended reference range Performed By: #### V BG #### Point of Care testing , Potassium [Moles/Vol] 3.7 mmol/L Normal 3.5-5.1 [facility] Comment on above: Performed By: #### V BG #### Point of Care testing , Sodium [Moles/Vol] 136 mmol/L Normal 136-145 [facility] Comment on above: Performed By: #### V BG #### Point of Care testing , Urea nitrogen [Mass/Vol] 16 mg/dL Normal 7-25 [facility] Comment on above: Performed By: #### V BG #### Point of Care testing , Basophils Auto (Bld) [#/Vol] Ordered By: Eldon Ambriz on 05-05-2023 Basophils (Bld) [#/Vol] 0.0 10*3/uL 0.0-0.2 [facility] Basophils/100 WBC Auto (Bld) Ordered By: Eldon Ambriz on 05-05-2023 Basophils/100 WBC (Bld) 0.9 % . [facility] Calcium [Mass/volume] in Ser um or PlasmaOrdered By: Eldon Ambriz on 05-05-2023 Calcium [Mass/Vol] 8.5 mg/dL 8.6-10.3 [facility] Carbon dioxide, total [Moles /volume] in Serum or PlasmaOrdered By: Eldon Ambriz on 05-05-2023 CO2 [Moles/Vol] 28.5 mmol/L 21.0-31.0 [facility] Chloride [Moles/volume] in S tino or PlasmaOrdered By: Eldon Ambriz on 05-05-2023 Chloride [Moles/Vol] 100 mmol/L 98-107 [facility] Complete Blood Count Auto Di ffon 05-05-2023 Basophils (Bld) [#/Vol] 0.0 10*3/uL Normal 0.0-0.2 [facility] Comment on above: Result Comment: PERF ORMED BY: [facility] [address] [place] [place] [address] PATHOLOGIST [employer] ANIL GUAMAN M.D. Performed By: #### V BG #### Point of Care testing , Basophils/100 WBC (Bld) 0.9 % Normal . [facility] Comment on above: Performed By: #### V BG #### Point of Care testing , Eosinophils (Bld) [#/Vol] 0.1 10*3/uL Normal 0.0-0.45 [facility] Comment on above: Performed By: #### V BG #### Point of Care testing , Eosinophils/100 WBC (Bld) 2.0 % Normal . [facility] Comment on above: Performed By: #### V BG #### Point of Care testing , Erythrocyte distribution width (RBC) [Ratio] 12.6 % Normal 12.0-14.8 [facility] Comment on above: Performed By: #### V BG #### Point of Care testing , Hematocrit (Bld) [Volume fraction] 35.5 % Low 38.8-50.0 [facility] Comment on above: Performed By: #### V BG #### Point of Care testing , Hemoglobin (Bld) [Mass/Vol] 12.6 g/dL Low 13.0-17.0 [facility] Comment on above: Performed By: #### V BG #### Point of Care testing , Lymphocytes (Bld) [#/Vol] 1.9 10*3/uL Normal 1.00-4.8 [facility] Comment on above: Performed By: #### V BG #### Point of Care testing , Lymphocytes/100 WBC (Bld) 37.1 % Normal . [facility] Comment on above: Performed By: #### V BG #### Point of Care testing , MCH (RBC) [Entitic mass] 32.6 pg Normal 27.5-35.2 [facility] Comment on above: Performed By: #### V BG #### Point of Care testing , MCV (RBC) [Entitic vol] 91.5 fL Normal 83.5-101 [facility] Comment on above: Performed By: #### V BG #### Point of Care testing , Mean Corpuscular HGB Conc 35.6 g/dL Normal 32.5-35.6 [facility] Comment on above: Performed By: #### V BG #### Point of Care testing , Monocytes (Bld) [#/Vol] 0.4 10*3/uL Normal 0.0-0.8 [facility] Comment on above: Performed By: #### V BG #### Point of Care testing , Monocytes/100 WBC (Bld) 7.9 % Normal . [facility] Comment on above: Performed By: #### V BG #### Point of Care testing , Neutrophils (Bld) [#/Vol] 2.6 10*3/uL Normal 1.8-7.7 [facility] Comment on above: Performed By: #### V BG #### Point of Care testing , Neutrophils/100 WBC (Bld) 52.1 % Normal . [facility] Comment on above: Performed By: #### V BG #### Point of Care testing , NRBC% 0.2 /100{WBC} Normal 0-0.5 [facility] Comment on above: Performed By: #### V BG #### Point of Care testing , Platelet mean volume (Bld) [Entitic vol] 9.2 fL Normal 6.6-10.1 [facility] Comment on above: Performed By: #### V BG #### Point of Care testing , Platelets (Bld) [#/Vol] 137 10*3/uL Low 150-450 [facility] Comment on above: Performed By: #### V BG #### Point of Care testing , RBC (Bld) [#/Vol] 3.88 10*6/uL Low 3.90-5.60 [facility] Comment on above: Performed By: #### V BG #### Point of Care testing , WBC (Bld) [#/Vol] 5.0 10*3/uL Normal 4.1-10.5 [facility] Comment on above: Performed By: #### V BG #### Point of Care testing , Creatinine [Mass/volume] in Serum or PlasmaOrdered By: Eldon Ambriz on 05-05-2023 Creatinine [Mass/Vol] 0.90 mg/dL 0.70-1.30 [facility] Eosinophils Auto (Bld) [#/Vo l]Ordered By: Eldon Ambriz on 05-05-2023 Eosinophils (Bld) [#/Vol] 0.1 10*3/uL 0.0-0.45 [facility] Eosinophils/100 WBC Auto (Bl d)Ordered By: Eldon Ambriz on 05-05-2023 Eosinophils/100 WBC (Bld) 2.0 % . [facility] Erythrocyte distribution wid th Auto (RBC) [Ratio]Ordered By: Eldon Ambriz on 05-05-2023 Erythrocyte distribution width (RBC) [Ratio] 12.6 % 12.0-14.8 [facility] Glucose [Mass/volume] in Ser um or PlasmaOrdered By: Eldon Ambriz on 05-05-2023 Glucose [Mass/Vol] 224 mg/dL 70-100 [facility] Comment on above: ADA recommended refe rence rangeRandom Glucose Reference Range is dependent on time and content of last meal. Glucose of more than 200 mg/dL in a nonstressed, ambulatory subject supports the diagnosis of Diabetes Mellitus. Hematocrit Auto (Bld) [Volum e fraction]Ordered By: Eldon Ambriz on 05-05-2023 Hematocrit (Bld) [Volume fraction] 35.5 % 38.8-50.0 [facility] Hemoglobin [Mass/volume] in BloodOrdered By: Eldon Ambriz on 05-05-2023 Hemoglobin (Bld) [Mass/Vol] 12.6 g/dL 13.0-17.0 [facility] Leukocytes [#/volume] correc billy for nucleated erythrocytes in Blood by Automated counOrdered By: Eldon Ambriz on 05-05-2023 WBC corrected for nucl RBC Auto (Bld) [#/Vol] 5.0 10*3/uL 4.1-10.5 [facility] Lymphocytes Auto (Bld) [#/Vo l]Ordered By: Eldonhaylee Ambriz on 05-05-2023 Lymphocytes (Bld) [#/Vol] 1.9 10*3/uL 1.00-4.8 [facility] Lymphocytes/100 WBC Auto (Bl d)Ordered By: Eldon Ambriz on 05-05-2023 Lymphocytes/100 WBC (Bld) 37.1 % . [facility] MCH Auto (RBC) [Entitic mass ]Ordered By: Eldon Ambriz on 05-05-2023 MCH (RBC) [Entitic mass] 32.6 pg 27.5-35.2 [facility] MCHC Auto (RBC) [Mass/Vol]Or dered By: Eldon Ambriz on 05-05-2023 MCHC (RBC) [Mass/Vol] 35.6 g/dL 32.5-35.6 [facility] MCV Auto (RBC) [Entitic vol] Ordered By: Eldon Ambriz on 05-05-2023 MCV (RBC) [Entitic vol] 91.5 fL 83.5-101 [facility] Magnesiumon 05-05-2023 Magnesium [Mass/Vol] 1.3 mg/dL Low 1.9-2.7 [facility] Comment on above: Result Comment: PERF ORMED BY: [facility] [address] [place] [address] PATHOLOGIST [employer] ANIL GUAMAN M.D. Performed By: #### V BG #### Point of Care testing , Magnesium [Mass/volume] in S tino or PlasmaOrdered By: Eldon Ambriz on 05-05-2023 Magnesium [Mass/Vol] 1.3 mg/dL 1.9-2.7 [facility] Monocytes Auto (Bld) [#/Vol] Ordered By: Eldon Ambriz on 05-05-2023 Monocytes (Bld) [#/Vol] 0.4 10*3/uL 0.0-0.8 [facility] Monocytes/100 WBC Auto (Bld) Ordered By: Eldon Ambriz on 05-05-2023 Monocytes/100 WBC (Bld) 7.9 % . [facility] Neutrophils Auto (Bld) [#/Vo l]Ordered By: Eldon Ambriz on 05-05-2023 Neutrophils (Bld) [#/Vol] 2.6 10*3/uL 1.8-7.7 [facility] Neutrophils/100 WBC Auto (Bl d)Ordered By: Eldon Ambriz on 05-05-2023 Neutrophils/100 WBC (Bld) 52.1 % . [facility] No Panel InformationOrdered By: Eldon Ambriz on 05-05-2023 Estimated GFR (CKD-EPI) > 60.0 mL/Min [facility] Creatinine Clearance (Chem 87.99 [facility] Nucleated erythrocytes [Pres ence] in Blood by Automated countOrdered By: Eldon Ambriz on 05-05-2023 Nucleated RBC Auto Ql (Bld) 0.2 /100{WBC} 0-0.5 [facility] Platelet mean volume Auto (B ld) [Entitic vol]Ordered By: Eldon Ambriz on 05-05-2023 Platelet mean volume (Bld) [Entitic vol] 9.2 fL 6.6-10.1 [facility] Platelets Auto (Bld) [#/Vol] Ordered By: Eldon Ambriz on 05-05-2023 Platelets (Bld) [#/Vol] 137 10*3/uL 150-450 [facility] Potassium [Moles/volume] in Serum or PlasmaOrdered By: Eldon Ambriz on 05-05-2023 Potassium [Moles/Vol] 3.7 mmol/L 3.5-5.1 [facility] RBC Auto (Bld) [#/Vol]Ordere d By: Eldon Ambriz on 05-05-2023 RBC (Bld) [#/Vol] 3.88 10*6/uL 3.90-5.60 [facility] Serum or plasma anion gap de terminationOrdered By: Eldon Ambriz on 05-05-2023 Anion gap [Moles/Vol] 11.2 mmol/L 6.0-15.0 [facility] Sodium [Moles/volume] in Ser um or PlasmaOrdered By: Eldon Ambriz on 05-05-2023 Sodium [Moles/Vol] 136 mmol/L 136-145 [facility] Urea nitrogen [Mass/volume] in Serum or PlasmaOrdered By: Eldon Ambriz on 05-05-2023 Urea nitrogen [Mass/Vol] 16 mg/dL 7-25 [facility] WBC Auto (Bld) [#/Vol]Ordere d By: Eldon Ambriz on 05-05-2023 WBC (Bld) [#/Vol] 5.0 10*3/uL 4.1-10.5 [facility] Alanine aminotransferase [En zymatic activity/volume] in Serum or PlasmaOrdered By: Eldon Ambriz on 05-04-2023 ALT [Catalytic activity/Vol] 9 U/L 7-52 [facility] Albumin [Mass/volume] in Ser um or Plasma by Bromocresol green (BCG) dye binding methoOrdered By: Eldon Ambriz on 05-04-2023 Albumin BCG dye [Mass/Vol] 3.8 g/dL 3.5-5.7 [facility] Alkaline phosphatase [Enzyma tic activity/volume] in Serum or PlasmaOrdered By: Eldon Ambriz on 05-04-2023 ALP [Catalytic activity/Vol] 59 U/L 34-104 [facility] Aspartate aminotransferase [ Enzymatic activity/volume] in Serum or PlasmaOrdered By: Eldon Ambriz on 05-04-2023 AST [Catalytic activity/Vol] 10 U/L 13-39 [facility] Bilirubin.total [Mass/volume ] in Serum or PlasmaOrdered By: Eldon Ambriz on 05-04-2023 Bilirubin [Mass/Vol] 1.1 mg/dL 0.3-1.0 [facility] Cholesterol [Mass/volume] in Serum or PlasmaOrdered By: Eldon Ambriz on 05-04-2023 Cholesterol [Mass/Vol] 150 mg/dL 140-200 [facility] Comment on above: Chol less than 200 m g/dl low riskChol 201-239 mg/dl borderline riskChol 240 mg/dl and greater high risk Cholesterol in LDL Calc [Mas s/Vol]Ordered By: Eldon Ambriz on 05-04-2023 Cholesterol in LDL [Mass/Vol] 72 mg/dL 0-100 [facility] Comment on above: LDL ATP III CLASSIFI CATIONLDL less than 100 mg/dL OptimalLDL 100-129 mg/dL Near or above optimalLDL 130-159 mg/dL Borderline highLDL 160-189 mg/dL HighLDL greater than 189 mg/dL Very high Cholesterol in VLDL Calc [Ma ss/Vol]Ordered By: Eldon Ambriz on 05-04-2023 Cholesterol in VLDL [Mass/Vol] 42 mg/dL [facility] Complete Blood Count Auto Di ffon 05-04-2023 Basophils (Bld) [#/Vol] 0.0 10*3/uL Normal 0.0-0.2 [facility] Comment on above: Result Comment: PERF ORMED BY: [place] [address] PATHOLOGIST [employer] ANIL GUAMAN M.D. Performed By: #### C MP TSH3, LIPID #### [facility] [address] [place] [address] Basophils/100 WBC (Bld) 0.7 % Normal . [facility] Comment on above: Performed By: #### C MP, TSH3, LIPID #### [facility] [address] [place] [address] Eosinophils (Bld) [#/Vol] 0.1 10*3/uL Normal 0.0-0.45 [facility] Comment on above: Performed By: #### C MP, TSH3, LIPID #### [address] Eosinophils/100 WBC (Bld) 1.1 % Normal . [facility] Comment on above: Performed By: #### C MP, TSH3, LIPID #### [address] Erythrocyte distribution width (RBC) [Ratio] 12.4 % Normal 12.0-14.8 [facility] Comment on above: Performed By: #### C MP, TSH3, LIPID #### [address] Hematocrit (Bld) [Volume fraction] 36.2 % Low 38.8-50.0 [facility] Comment on above: Performed By: #### C MP, TSH3, LIPID #### [address] Hemoglobin (Bld) [Mass/Vol] 12.8 g/dL Low 13.0-17.0 [facility] Comment on above: Performed By: #### C MP, TSH3, LIPID #### [address] Lymphocytes (Bld) [#/Vol] 1.8 10*3/uL Normal 1.00-4.8 [facility] Comment on above: Performed By: #### C MP, TSH3, LIPID #### [place] [address] [place] Lymphocytes/100 WBC (Bld) 34.9 % Normal . [facility] Comment on above: Performed By: #### C MP, TSH3, LIPID #### [address] MCH (RBC) [Entitic mass] 32.5 pg Normal 27.5-35.2 [facility] Comment on above: Performed By: #### C MP, TSH3, LIPID #### [facility] [address] MCV (RBC) [Entitic vol] 92.1 fL Normal 83.5-101 [facility] Comment on above: Performed By: #### C MP, TSH3, LIPID #### [address] Mean Corpuscular HGB Conc 35.3 g/dL Normal 32.5-35.6 [facility] Comment on above: Performed By: #### C MP, TSH3, LIPID #### [address] Monocytes (Bld) [#/Vol] 0.4 10*3/uL Normal 0.0-0.8 [facility] Comment on above: Performed By: #### C MP, TSH3, LIPID #### [address] Monocytes/100 WBC (Bld) 7.6 % Normal . [facility] Comment on above: Performed By: #### C MP, TSH3, LIPID #### [place] [address] [place] Neutrophils (Bld) [#/Vol] 2.9 10*3/uL Normal 1.8-7.7 [facility] Comment on above: Performed By: #### C MP, TSH3, LIPID #### [place] [address] [place] Neutrophils/100 WBC (Bld) 55.7 % Normal . [facility] Comment on above: Performed By: #### C MP, TSH3, LIPID #### [place] [address] [place] NRBC% 0.3 /100{WBC} Normal 0-0.5 [facility] Comment on above: Performed By: #### C MP, TSH3, LIPID #### [address] Platelet mean volume (Bld) [Entitic vol] 9.2 fL Normal 6.6-10.1 [facility] Comment on above: Performed By: #### C MP, TSH3, LIPID #### [facility] [address] Platelets (Bld) [#/Vol] 145 10*3/uL Low 150-450 [facility] Comment on above: Performed By: #### C MP, TSH3, LIPID #### [address] RBC (Bld) [#/Vol] 3.92 10*6/uL Normal 3.90-5.60 [facility] Comment on above: Performed By: #### C MP, TSH3, LIPID #### [address] WBC (Bld) [#/Vol] 5.1 10*3/uL Normal 4.1-10.5 [facility] Comment on above: Performed By: #### C MP, TSH3, LIPID #### [address] Comprehensive Metabolic Pane rudolph 05-04-2023 Albumin [Mass/Vol] 3.8 g/dL Normal 3.5-5.7 [facility] Comment on above: Order Comment: Reaso n for Exam Weight loss;Nausea vomiting;Type 2 diabetes mellitus with PT IS FASTING Performed By: #### C MP, TSH3, LIPID #### [address] Albumin/Globulin [Mass ratio] 1.7 {ratio} Normal [facility] Comment on above: Order Comment: Reaso n for Exam Weight loss;Nausea vomiting;Type 2 diabetes mellitus with PT IS FASTING Performed By: #### C MP, TSH3, LIPID #### [address] ALP [Catalytic activity/Vol] 59 U/L Normal 34-104 [facility] Comment on above: Order Comment: Reaso n for Exam Weight loss;Nausea vomiting;Type 2 diabetes mellitus with PT IS FASTING Performed By: #### C MP, TSH3, LIPID #### [facility] [address] ALT [Catalytic activity/Vol] 9 U/L Normal 7-52 [facility] Comment on above: Order Comment: Reaso n for Exam Weight loss;Nausea vomiting;Type 2 diabetes mellitus with PT IS FASTING Performed By: #### C MP, TSH3, LIPID #### [facility] [address] Anion gap [Moles/Vol] 11.4 mmol/L Normal 6.0-15.0 [facility] Comment on above: Order Comment: Reaso n for Exam Weight loss;Nausea vomiting;Type 2 diabetes mellitus with PT IS FASTING Performed By: #### C MP, TSH3, LIPID #### [facility] [address] AST [Catalytic activity/Vol] 10 U/L Low 13-39 [facility] Comment on above: Order Comment: Reaso n for Exam Weight loss;Nausea vomiting;Type 2 diabetes mellitus with PT IS FASTING Performed By: #### C MP, TSH3, LIPID #### [facility] [address] Bilirubin [Mass/Vol] 1.1 mg/dL High 0.3-1.0 [facility] Comment on above: Order Comment: Reaso n for Exam Weight loss;Nausea vomiting;Type 2 diabetes mellitus with PT IS FASTING Performed By: #### C MP, TSH3, LIPID #### [facility] [address] [place] [address] [place] Calcium [Mass/Vol] 8.7 mg/dL Normal 8.6-10.3 [facility] Comment on above: Order Comment: Reaso n for Exam Weight loss;Nausea vomiting;Type 2 diabetes mellitus with PT IS FASTING Performed By: #### C MP, TSH3, LIPID #### [facility] [address] [place] [address] [place] Chloride [Moles/Vol] 100 mmol/L Normal 98-107 [facility] Comment on above: Order Comment: Reaso n for Exam Weight loss;Nausea vomiting;Type 2 diabetes mellitus with PT IS FASTING Performed By: #### C MP, TSH3, LIPID #### [facility] [address] [place] [address] [place] CO2 [Moles/Vol] 28.8 mmol/L Normal 21.0-31.0 [facility] Comment on above: Order Comment: Reaso n for Exam Weight loss;Nausea vomiting;Type 2 diabetes mellitus with PT IS FASTING Performed By: #### C MP, TSH3, LIPID #### [facility] [address] Creatinine [Mass/Vol] 1.18 mg/dL Significan t change down 0.70-1.30 [facility] Comment on above: Order Comment: Reaso n for Exam Weight loss;Nausea vomiting;Type 2 diabetes mellitus with PT IS FASTING Performed By: #### C MP, TSH3, LIPID #### [facility] [address] [place] [address] [place] Creatinine Clr Calc Pharmacy 67.11 [facility] Comment on above: Order Comment: Reaso n for Exam Weight loss;Nausea vomiting;Type 2 diabetes mellitus with PT IS FASTING Performed By: #### C MP, TSH3, LIPID #### [facility] [address] [place] [address] [place] GFR/1.73 sq M.predicted MDRD (S/P/Bld) [Vol rate/Area] mL/min/{1.73_m2} [facility] Comment on above: Order Comment: Reaso n for Exam Weight loss;Nausea vomiting;Type 2 diabetes mellitus with PT IS FASTING Performed By: #### C MP, TSH3, LIPID #### [facility] [address] Globulin (S) [Mass/Vol] 2.2 g/dL [facility] Comment on above: Order Comment: Reaso n for Exam Weight loss;Nausea vomiting;Type 2 diabetes mellitus with PT IS FASTING Performed By: #### C MP, TSH3, LIPID #### [facility] [address] Glucose [Mass/Vol] 226 mg/dL Significant change up 70-100 [facility] Comment on above: Order Comment: Reaso n for Exam Weight loss;Nausea vomiting;Type 2 diabetes mellitus with PT IS FASTING Result Comment: [place] Glucose Reference Range is dependent on time and content of last meal. Glucose of more than 200 mg/dL in a nonstressed, ambulatory subject supports the diagnosis of Diabetes Mellitus. ADA recommended reference range Performed By: #### C MP, TSH3, LIPID #### [facility] [address] Potassium [Moles/Vol] 3.2 mmol/L Low 3.5-5.1 [facility] Comment on above: Order Comment: Reaso n for Exam Weight loss;Nausea vomiting;Type 2 diabetes mellitus with PT IS FASTING Performed By: #### C MP, TSH3, LIPID #### [facility] [address] [place] [address] [place] Protein [Mass/Vol] 6.0 g/dL Low 6.4-8.9 [facility] Comment on above: Order Comment: Reaso n for Exam Weight loss;Nausea vomiting;Type 2 diabetes mellitus with PT IS FASTING Performed By: #### C MP, TSH3, LIPID #### [facility] [address] [place] [address] [place] Sodium [Moles/Vol] 137 mmol/L Normal 136-145 [facility] Comment on above: Order Comment: Reaso n for Exam Weight loss;Nausea vomiting;Type 2 diabetes mellitus with PT IS FASTING Performed By: #### C MP, TSH3, LIPID #### [facility] [address] [place] [id number] [place] Urea nitrogen [Mass/Vol] 28 mg/dL High 7-25 [facility] Comment on above: Order Comment: Reaso n for Exam Weight loss;Nausea vomiting;Type 2 diabetes mellitus with PT IS FASTING Performed By: #### C MP, TSH3, LIPID #### [facility] [address] [place] [id number] [place] ECG 12 lead ECGon 05-04-2023 [address] [facility] [place] [address] [place] [address] Electrocardiograph Report Signed 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 MR#: [id number] : 1970 Acct:[id number] Age/Sex: 52 / M ADM Date: 05/03/23 Loc: Room: [address] [place] [address] Type: ADM IN Attending Dr: Eldon Ambriz [...] Signed By Crow Dean DO 05/05 0748 [facility] Globulin Calc (S) [Mass/Vol] Ordered By: Eldon Ambriz on 05-04-2023 Globulin (S) [Mass/Vol] 2.2 g/dL [facility] Glucose Glucometer (BldC) [M ass/Vol]Ordered By: Eldon Ambriz on 05-04-2023 Glucose [Mass/Vol] 260 mg/dL [facility] Comment on above: Random Glucose Refer ence Range is dependent on time and content of last meal. Glucose of more than 200 mg/dL in a nonstressed, ambulatory subject supports the diagnosis of Diabetes Mellitus. Glucose Poct Glucometerson 0 05-04-2023 Commemt1 Glu2: Cleaned Meter Normal [facility] Comment on above: Result Comment: PERF ORMED BY: [place] [address] PATHOLOGIST [employer]CR[employer]IL[employer] MOUNTER ANIL GUAMAN M.D. Performed By: #### C MP, TSH3, LIPID #### [address] Glucose [Mass/Vol] 260 mg/dL Normal [facility] Comment on above: Result Comment: [place] om Glucose Reference Range is dependent on time and content of last meal. Glucose of more than 200 mg/dL in a nonstressed, ambulatory subject supports the diagnosis of Diabetes Mellitus. Performed By: #### C ORI TSH3, LIPID #### [address] Glucose [Mass/Vol] 291 mg/dL Normal [facility] Comment on above: Result Comment: [place] om Glucose Reference Range is dependent on time and content of last meal. Glucose of more than 200 mg/dL in a nonstressed, ambulatory subject supports the diagnosis of Diabetes Mellitus. PERFORMED BY: [place] [address] PATHOLOGIST [employer]IL[employer]OUN[employer] ANIL GUAMAN M.D. Performed By: #### C ORI TSH3, LIPID #### [address] Lipid Panelon 05-04-2023 Cholesterol [Mass/Vol] 150 mg/dL Normal 140-200 [facility] Comment on above: Order Comment: Reaso n for Exam Weight loss;Nausea vomiting;Type 2 diabetes mellitus with PT IS FASTING Result Comment: Chol less than 200 mg/dl low risk Chol 201-239 mg/dl borderline risk Chol 240 mg/dl and greater high risk Performed By: #### C ORI TSH3, LIPID #### [address] Cholesterol in HDL [Mass/Vol] 36 mg/dL Normal 23-92 [facility] Comment on above: Order Comment: Reaso n for Exam Weight loss;Nausea vomiting;Type 2 diabetes mellitus with PT IS FASTING Result Comment: HDL CHOL ATP-III CLASSIFICATION Cardiovascular Risk HDL > or equal to 60 mg/dL LOW HDL < 40 mg/dL HIGH Performed By: #### C ORI TSH3, LIPID #### [address] Cholesterol.total/Chol esterol in HDL [Mass ratio] 4.2 {ratio} Normal <5.0 [facility] Comment on above: Order Comment: Reaso n for Exam Weight loss;Nausea vomiting;Type 2 diabetes mellitus with PT IS FASTING Result Comment: PERF ORMED BY: [place] [address] PATHOLOGIST [employer] ANIL GUAMAN M.D. Performed By: #### C MP, TSH3, LIPID #### [address] LDL Cholesterol,Calculated 72 mg/dL Normal 0-100 [facility] Comment on above: Order Comment: Reaso n for Exam Weight loss;Nausea vomiting;Type 2 diabetes mellitus with PT IS FASTING Result Comment: LDL ATP III CLASSIFICATION LDL less than 100 mg/dL Optimal LDL 100-129 mg/dL Near or above optimal LDL 130-159 mg/dL Borderline high LDL 160-189 mg/dL High LDL greater than 189 mg/dL Very high Performed By: #### C MP, TSH3, LIPID #### [address] Triglyceride w/Reflex 211 mg/dL High 0-149 [facility] Comment on above: Order Comment: [...] By: #### C MP, TSH3, LIPID #### [address] VLDL CHOLESTEROL 42 mg/dL Normal [facility] Comment on above: Order Comment: Reaso n for Exam Weight loss;Nausea vomiting;Type 2 diabetes mellitus with PT IS FASTING Performed By: #### C MP, TSH3, LIPID #### [facility] [address] [place] [address] No Panel InformationOrdered By: Eldon Ambriz on 05-04-2023 Bedside Glucose Comment Glu2: cleaned meter [facility] Protein [Mass/volume] in Ser um or PlasmaOrdered By: Eldon Ambriz on 05-04-2023 Protein [Mass/Vol] 6.0 g/dL 6.4-8.9 [facility] Serum or plasma albumin/glob ulin mass ratioOrdered By: Eldon Ambriz on 05-04-2023 Albumin/Globulin [Mass ratio] 1.7 {ratio} [facility] Serum or plasma high density lipoprotein (HDL) cholesterol measurementOrdered By: Eldon Ambriz on 05-04-2023 Cholesterol in HDL [Mass/Vol] 36 mg/dL 23-92 [facility] Comment on above: HDL CHOL ATP-III CLA SSIFICATION Cardiovascular RiskHDL > or equal to 60 mg/dL LOWHDL < 40 mg/dL HIGH Serum or plasma total choles terol/high density lipoprotein (HDL) cholesterol mass ratOrdered By: Eldon Ambriz on 05-04-2023 Cholesterol.total/Chol esterol in HDL [Mass ratio] 4.2 {ratio} <5.0 [facility] Triglyceride [Mass/volume] i n Serum or PlasmaOrdered By: Eldon Ambriz on 05-04-2023 Triglyceride [Mass/Vol] 211 mg/dL 0-149 [facility] Comment on above: TRIG ATP III CLASSIF ICATIONTRIG less than 150 mg/dL NormalTRIG 150-199 mg/dL Borderline highTRIG 200-500 mg/dL High TRIG greater than 500 mg/dL Very highStandard traceable to the Center for Disease Conrtrol and Prevention (CDC) test method. US renal BIon 05-04-[address] [facility] [place] [address] Ultrasound Report Signed 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 MR#: [id number] : 1970 Acct:[id number] Age/Sex: 52 / M ADM Date: 05/03/23 Loc: Room: [address] [place] [address] Type: ADM IN Attending Dr: Eldon Ambriz MD Ordering Provider: Eldon Ambriz MD Date of Service: 05/03/23 US/US renal BI: ESTELLE, rule out obstruction Copies to: Eldon Ambriz MD BILATERAL RENAL AND BLADDER ULTRASOUND CLINICAL HISTORY: Acute kidney injury COMPARISON: CT 04/18/2020 Estimation of renal size is approximately 10.6 cm on the right and 11.4 cm on the left. No shadowing calculi or hydronephrosis are identified. The face burler raised question of a possible left renal [...] Flor Almonte M.D.05/04/2023 9:43 AM Dictation Location: [place] [address] Tech: Dyan Zambrano Transcribed By: WILEY 05/04/23942 Dictated By: Flor Almonte MD 05/04/23931 Signed By: 05/04/23942 [facility] A1C with Estimated Average G marilu 05-03-2023 Glucose [Mass/Vol] 266 mg/dL Normal [facility] Comment on above: Order Comment: Comme nt Add onto previous lab draw Result Comment: PERF ORMED BY: [place] [address] PATHOLOGIST [employer]CR[employer]IL[employer] MOUNTER ANIL GUAMAN M.D. Performed By: #### C BC, LIPASE, HEPATIC, BMP #### [facility] [address] [place] [address] HbA1c (Bld) [Mass fraction] 10.9 % High 4.3-5.6 [facility] Comment on above: Order Comment: Commnenita nt Add onto previous lab draw Result Comment: Incr eased risk for diabetes: 5.7 - 6.4 diabetes: >6.4 glycemic control for adults with diabetes: <7.0 Performed By: #### C BC, LIPASE, HEPATIC, BMP #### [facility] [address] [place] [address] Activated partial thrombopla stin time (aPTT) in platelet poor plasma by coagulation aOrdered By: Preet Burrows on 05-03-2023 aPTT Coag (PPP) [Time] 22.8 s 25.1-36.5 [facility] Amphetamine Screen Ql (U)Ord ered By: Eldon Ambriz on 05-03-2023 Amphetamines Ql (U) Negative Negative [facility] B-Type Natriuretic Peptideon 05-03-2023 Natriuretic peptide B (Bld) [Mass/Vol] 20.0 pg/mL Normal 5-100 [facility] Comment on above: Result Comment: PERF ORMED BY: [facility] [address] [place] [address] PATHOLOGIST [employer]CROFIL[employer] MOUNTER ANIL GUAMAN M.D. Performed By: #### C MP, TSH3, LIPID #### [facility] [address] [place] [address] [place] Barbiturates [Presence] in U rine by Screen methodOrdered By: Eldon Ambriz on 05-03-2023 Barbiturates Screen Ql (U) Negative Negative [facility] Basic Metabolic Panelon Anion gap [Moles/Vol] 14.6 mmol/L Normal 6.0-15.0 [facility] Comment on above: Performed By: #### C MP, TSH3, LIPID #### [facility] [address] [place] [address] [place] Calcium [Mass/Vol] 9.6 mg/dL Normal 8.6-10.3 [facility] Comment on above: Performed By: #### C MP, TSH3, LIPID #### [facility] [address] [place] [address] [place] Chloride [Moles/Vol] 93 mmol/L Low 98-107 [facility] Comment on above: Performed By: #### C MP, TSH3, LIPID #### [facility] [address] [place] [id number] [place] CO2 [Moles/Vol] 28.5 mmol/L Normal 21.0-31.0 [facility] Comment on above: Performed By: #### C MP, TSH3, LIPID #### [facility] [address] [place] [id number] [place] Creatinine [Mass/Vol] 2.23 mg/dL High 0.70-1.30 [facility] Comment on above: Performed By: #### C MP, TSH3, LIPID #### [facility] [address] [place] [address] [place] Creatinine Clr Calc Pharmacy 35.50 [facility] Comment on above: Result Comment: PERF ORMED BY: [place] [address] PATHOLOGIST MICROFIL[employer] MOUNTER ANIL GUAMAN M.D. Performed By: #### C MP, TSH3, LIPID #### [facility] [address] [place] [address] [place] GFR/1.73 sq M.predicted MDRD (S/P/Bld) [Vol rate/Area] 34.376 mL/min/{1.73_m2} [facility] Comment on above: Performed By: #### C MP, TSH3, LIPID #### [facility] [address] [place] [address] [place] Glucose [Mass/Vol] 350 mg/dL High 70-100 [facility] Comment on above: Result Comment: [facility] Glucose Reference Range is dependent on time and content of last meal. Glucose of more than 200 mg/dL in a nonstressed, ambulatory subject supports the diagnosis of Diabetes Mellitus. ADA recommended reference range Performed By: #### C MP, TSH3, LIPID #### [facility] [address] [place] [address] [place] Potassium [Moles/Vol] 4.1 mmol/L Normal 3.5-5.1 [facility] Comment on above: Performed By: #### C MP, TSH3, LIPID #### [facility] [address] [place] [address] [place] Sodium [Moles/Vol] 132 mmol/L Low 136-145 [facility] Comment on above: Performed By: #### C MP, TSH3, LIPID #### [facility] [address] [place] [address] [place] Urea nitrogen [Mass/Vol] 35 mg/dL High 7-25 [facility] Comment on above: Performed By: #### C MP, TSH3, LIPID #### [facility] [address] [place] [id number] [place] Basophils Auto (Bld) [#/Vol] Ordered By: Preet Burrows on 05-03-2023 Basophils (Bld) [#/Vol] 0.0 10*3/uL 0.0-0.2 [facility] Basophils/100 WBC Auto (Bld) Ordered By: Preet Burrows on 05-03-2023 Basophils/100 WBC (Bld) 0.3 % . [facility] Benzodiazepines Screen Ql (U )Ordered By: Eldon Ambriz on 05-03-2023 Benzodiazepines Ql (U) Negative Negative [facility] Benzoylecgonine [Presence] i n Urine by Screen methodOrdered By: Eldon Ambriz on 05-03-2023 Benzoylecgonine Screen Ql (U) Positive Negative [facility] Beta Hydroxybuterateon 05-03 Beta Hydroxybuterate 0.70 mmol/L High 0.02-0.27 [facility] Comment on above: Result Comment: PERF ORMED BY: [place] [address] PATHOLOGIST MICROFIL[employer] MOUNTER ANIL GUAMAN M.D. Performed By: #### U RDS, ADDONUAPLUS #### [facility] [address] [place], [place] [id number] [facility] Beta hydroxybutyrate [Moles/ volume] in Serum or PlasmaOrdered By: Preet Burrows on 05-03-2023 Beta hydroxybutyrate [Moles/Vol] 0.70 mmol/L 0.02-0.27 [facility] Bilirubin Test strip Ql (U)O rdered By: Preet Burrows on 05-03-2023 Bilirubin Ql (U) Negative Negative [facility] BioFire Not Detectedon 05-03 BioFire Not Detected Not detected Normal Not Detecte [facility] Comment on above: Result Comment: This is a duplicate RP2.1 COVID (PCR) result to be used for statistical tracking purpose only. PERFORMED BY: [place] [address] PATHOLOGIST [employer]CR[employer]IL[employer] MOUNTER ANIL GUAMAN M.D. Performed By: #### R AUDRA PANEL UPP., BIOFIRECOVNOTDE #### [facility] [address] [place] [id number] [facility] COVID-19 Detected/Not Detect edOrdered By: Eldon Ambriz on 05-03-2023 SARS-CoV-2 (COVID-19) RNA SILVIA+non-probe Ql (Nph) Not detected Not Detecte [facility] Comment on above: This is a duplicate RP2.1 COVID (PCR) result to be used for statistical tracking purpose only. Calcium [Mass/volume] in Ser um or PlasmaOrdered By: Preet Burrows on 05-03-2023 Calcium [Mass/Vol] 9.6 mg/dL 8.6-10.3 [facility] Cannabinoids [Presence] in U rine by Screen methodOrdered By: Eldon Ambriz on 05-03-2023 Cannabinoids Screen Ql (U) Negative Negative [facility] Comment on above: These are unconfirme d results and should not be used for legal purposes. Drug Cut-Off Concentration: AMPH 1000 ng/mL CHRISTINA 200 ng/mL CHRISTIANO 200 ng/mL COCM 300 ng/mL OP 300 ng/mL PCP 25 ng/mL THC 20 ng/mL Carbon dioxide, total [Moles /volume] in Serum or PlasmaOrdered By: Preet Burrows on 05-03-2023 CO2 [Moles/Vol] 28.5 mmol/L 21.0-31.0 [facility] Chloride [Moles/volume] in S tino or PlasmaOrdered By: Preet Burrows on 05-03-2023 Chloride [Moles/Vol] 93 mmol/L 98-107 [facility] Color Auto (U)Ordered By: Luis Manuel Burrows on 05-03-2023 Color (U) Yellow Yellow [facility] Complete Blood Count Auto Di ffon 05-03-2023 Basophils (Bld) [#/Vol] 0.0 10*3/uL Normal 0.0-0.2 [facility] Comment on above: Result Comment: PERF ORMED BY: [facility] [address] [place] [id number] PATHOLOGIST MICROFILM MOUNTER ANIL GUAMAN M.D. Performed By: #### C MP, TSH3, LIPID #### [facility] [address] [place] [address] [place] Basophils/100 WBC (Bld) 0.3 % Normal . [facility] Comment on above: Performed By: #### C MP, TSH3, LIPID #### [address] Eosinophils (Bld) [#/Vol] 0.0 10*3/uL Normal 0.0-0.45 [facility] Comment on above: Performed By: #### C MP, TSH3, LIPID #### [address] Eosinophils/100 WBC (Bld) 0.2 % Normal . [facility] Comment on above: Performed By: #### C MP, TSH3, LIPID #### [address] Erythrocyte distribution width (RBC) [Ratio] 12.4 % Normal 12.0-14.8 [facility] Comment on above: Performed By: #### C MP, TSH3, LIPID #### [address] Hematocrit (Bld) [Volume fraction] 40.9 % Normal 38.8-50.0 [facility] Comment on above: Performed By: #### C MP, TSH3, LIPID #### [place] [address] [place] Hemoglobin (Bld) [Mass/Vol] 14.3 g/dL Normal 13.0-17.0 [facility] Comment on above: Performed By: #### C MP, TSH3, LIPID #### [place] [address] [place] Lymphocytes (Bld) [#/Vol] 1.0 10*3/uL Normal 1.00-4.8 [facility] Comment on above: Performed By: #### C MP, TSH3, LIPID #### [place] [address] [place] Lymphocytes/100 WBC (Bld) 13.0 % Normal . [facility] Comment on above: Performed By: #### C MP, TSH3, LIPID #### [address] MCH (RBC) [Entitic mass] 32.6 pg Normal 27.5-35.2 [facility] Comment on above: Performed By: #### C MP, TSH3, LIPID #### [address] MCV (RBC) [Entitic vol] 93.0 fL Normal 83.5-101 [facility] Comment on above: Performed By: #### C MP, TSH3, LIPID #### [address] Mean Corpuscular HGB Conc 35.1 g/dL Normal 32.5-35.6 [facility] Comment on above: Performed By: #### C MP, TSH3, LIPID #### [address] Monocytes (Bld) [#/Vol] 0.5 10*3/uL Normal 0.0-0.8 [facility] Comment on above: Performed By: #### C MP, TSH3, LIPID #### [address] Monocytes/100 WBC (Bld) 15.82 % Normal 0.00-20.00 [facility] Comment on above: Performed By: #### C MP, TSH3, LIPID #### [address] Monocytes/100 WBC (Bld) 6.1 % Normal . [facility] Comment on above: Performed By: #### C MP, TSH3, LIPID #### [address] Neutrophils (Bld) [#/Vol] 6.2 10*3/uL Normal 1.8-7.7 [facility] Comment on above: Performed By: #### C MP, TSH3, LIPID #### [address] [place] [address] [place] Neutrophils/100 WBC (Bld) 80.4 % Normal . [facility] Comment on above: Performed By: #### C MP, TSH3, LIPID #### [facility] [address] NRBC% 0.1 /100{WBC} Normal 0-0.5 [facility] Comment on above: Performed By: #### C MP, TSH3, LIPID #### [facility] [address] Platelet mean volume (Bld) [Entitic vol] 8.9 fL Normal 6.6-10.1 [facility] [facility] Comment on above: Performed By: #### C MP, TSH3, LIPID #### [address] Platelets (Bld) [#/Vol] 169 10*3/uL Normal 150-450 [facility] Comment on above: Performed By: #### C MP, TSH3, LIPID #### [address] RBC (Bld) [#/Vol] 4.40 10*6/uL Normal 3.90-5.60 [facility] Comment on above: Performed By: #### C MP, TSH3, LIPID #### [address] WBC (Bld) [#/Vol] 7.7 10*3/uL Normal 4.1-10.5 [facility] Comment on above: Performed By: #### C MP, TSH3, LIPID #### [place] [address] [place] Creatine Kinaseon 05-03-2023 CK [Catalytic activity/Vol] 73 U/L Normal 30-223 [facility] Comment on above: Performed By: #### C MP, TSH3, LIPID #### [place] [address] [place] Creatine kinase [Enzymatic a ctivity/volume] in Serum or PlasmaOrdered By: Preet Burrows on 05-03-2023 CK [Catalytic activity/Vol] 73 U/L 30-223 [facility] Creatinine [Mass/volume] in Serum or PlasmaOrdered By: Preetsebastian Burrows on 05-03-2023 Creatinine [Mass/Vol] 2.23 mg/dL 0.70-1.30 [facility] Creatinine [Mass/volume] in UrineOrdered By: Eldon Ambriz on 05-03-2023 Creatinine (U) [Mass/Vol] 80.0 mg/dL 14.0-26.0 [facility] Creatinine, Urine (Random)on 05-03-2023 Creatinine, Urine (Random) 80.0 mg/dL High 14.0-26.0 [facility] Comment on above: Performed By: #### U RDS, ADDONUAPLUS #### [facility] [address] [place] [address] [place] Drug Screen,Urineon 05-03-20 23 Amphetamine Screen,Urine Negative Normal Negative [facility] Comment on above: Performed By: #### C BC, LIPASE, HEPATIC, BMP #### [facility] [address] Barbiturate Screen,Urine Negative Normal Negative [facility] Comment on above: Performed By: #### C BC, LIPASE, HEPATIC, BMP #### [facility] [address] [place] [address] Benzodiazepines Screen,Urine Negative Normal Negative [facility] Comment on above: Performed By: #### C BC, LIPASE, HEPATIC, BMP #### [facility] [address] [place] [address] [place] Cannabinoid Screen,Urine Negative Normal Negative [facility] Comment on above: Result Comment: Thes e are unconfirmed results and should not be used for legal purposes. Drug Cut-Off Concentration: AMPH 1000 ng/mL CHRISTINA 200 ng/mL CHRISTIANO 200 ng/mL COCM 300 ng/mL OP 300 ng/mL PCP 25 ng/mL THC 20 ng/mL PERFORMED BY: [place] [address] PATHOLOGIST [employer] ANIL GUAMAN M.D. Performed By: #### C BC, LIPASE, HEPATIC, BMP #### [facility] [address] Cocaine Screen,Urine Positive High Negative [facility] Comment on above: Performed By: #### C BC, LIPASE, HEPATIC, BMP #### [facility] [address] Opiate Screen,Urine Negative Normal Negative [facility] Comment on above: Performed By: #### C BC, LIPASE, HEPATIC, BMP #### [facility] [address] Phencyclidine Screen,Urine Negative Normal Negative [facility] Comment on above: Performed By: #### C BC, LIPASE, HEPATIC, BMP #### [facility] [address] ECG 12 lead ECGon 05-03-2023 [address] [facility] [place] [address] [place] [address] Electrocardiograph Report Signed 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 MR#: [id number] : 1970 Acct:[id number] Age/Sex: 52 / M ADM Date: 05/03/23 Loc: ER Room: Type: [facility] ER Attending Dr: Ordering Provider: Preet [...] normal variant Confirmed by Dave HENDRICKS DO ([id number]) on 05/03/2023 7:30:30 PM Referred By: Electronically Signed By:Dave HENDRICKS DO Transcribed By: MUS Signed By Dave Hendricks DO 0 05/03/23 193 Normal [facility] Eosinophils Auto (Bld) [#/Vo l]Ordered By: Preet Burrows on 05-03-2023 Eosinophils (Bld) [#/Vol] 0.0 10*3/uL 0.0-0.45 [facility] Eosinophils/100 WBC Auto (Bl d)Ordered By: Preet Burrows on 05-03-2023 Eosinophils/100 WBC (Bld) 0.2 % . [facility] Erythrocyte distribution wid th Auto (RBC) [Ratio]Ordered By: Preet Burrows on 05-03-2023 Erythrocyte distribution width (RBC) [Ratio] 12.4 % 12.0-14.8 [facility] Glucose Glucometer (BldC) [M ass/Vol]Ordered By: Eldon Ambriz on 05-03-2023 Glucose [Mass/Vol] 268 mg/dL [facility] Comment on above: Random Glucose Refer ence Range is dependent on time and content of last meal. Glucose of more than 200 mg/dL in a nonstressed, ambulatory subject supports the diagnosis of Diabetes Mellitus. Glucose Poct Glucometerson 0 05-03-2023 Glucose [Mass/Vol] 268 mg/dL Normal [facility] Comment on above: Result Comment: [place] om Glucose Reference Range is dependent on time and content of last meal. Glucose of more than 200 mg/dL in a nonstressed, ambulatory subject supports the diagnosis of Diabetes Mellitus. PERFORMED BY: [place] [address] PATHOLOGIST [employer] ANIL GUAMAN M.D. Performed By: #### C MP, TSH3, LIPID #### [place] [address] [place] Glucose [Mass/volume] in Ser um or PlasmaOrdered By: Preet Burrows on 05-03-2023 Glucose [Mass/Vol] 350 mg/dL 70-100 [facility] Comment on above: ADA recommended refe rence rangeRandom Glucose Reference Range is dependent on time and content of last meal. Glucose of more than 200 mg/dL in a nonstressed, ambulatory subject supports the diagnosis of Diabetes Mellitus. Glucose mean value [Mass/vol ume] in Blood Estimated from glycated hemoglobinOrdered By: Eldon Ambriz on 05-03-2023 Average glucose Estimated from glycated hemoglobin (Bld) [Mass/Vol] 266 mg/dL [facility] Hematocrit Auto (Bld) [Volum e fraction]Ordered By: Preet Burrows on 05-03-2023 Hematocrit (Bld) [Volume fraction] 40.9 % 38.8-50.0 [facility] Hemoglobin A1c percentageOrd ered By: Eldon Ambriz on 05-03-2023 HbA1c (Bld) [Mass fraction] 10.9 % 4.3-5.6 [facility] Comment on above: Increased risk for d iabetes: 5.7 - 6.4diabetes: >6.4glycemic control for adults with diabetes: <7.0 Hemoglobin [Mass/volume] in BloodOrdered By: Preet Burrows on 05-03-2023 Hemoglobin (Bld) [Mass/Vol] 14.3 g/dL 13.0-17.0 [facility] Ketones Auto test strip (U) [Mass/Vol]Ordered By: Preet Burrows on 05-03-2023 Ketones (U) [Mass/Vol] Trace Negative [facility] - Chemistry and C hemistry - challengeOrdered By: Preet Burrows on 05-03-2023 CO2 [Moles/Vol] 32.1 mmol/L 24.0-29.0 [facility] HCO3 (Bld) [Moles/Vol] 30.6 mmol/L 23.0-29.0 [facility] Laboratory - CoagulationOrde red By: Preet Burrows on 05-03-2023 PT Coag (PPP) [Time] 11.6 s 9.0-12.9 [facility] Leukocytes [#/volume] correc billy for nucleated erythrocytes in Blood by Automated counOrdered By: Preet Burrows on 05-03-2023 WBC corrected for nucl RBC Auto (Bld) [#/Vol] 7.7 10*3/uL 4.1-10.5 [facility] Lipaseon 05-03-2023 Lipase [Catalytic activity/Vol] 63.0 U/L Normal 11.0-82.0 [facility] Comment on above: Performed By: #### U RDS, ADDONUAPLUS #### [address] Lipase [Enzymatic activity/v olume] in Serum or PlasmaOrdered By: Preet Burrows on 05-03-2023 Lipase [Catalytic activity/Vol] 63.0 U/L 11.0-82.0 [facility] Lymphocytes Auto (Bld) [#/Vo l]Ordered By: Preet Burrows on 05-03-2023 Lymphocytes (Bld) [#/Vol] 1.0 10*3/uL 1.00-4.8 [facility] Lymphocytes/100 WBC Auto (Bl d)Ordered By: Preet Burrows on 05-03-2023 Lymphocytes/100 WBC (Bld) 13.0 % . [facility] MCH Auto (RBC) [Entitic mass ]Ordered By: Preet Burrows on 05-03-2023 MCH (RBC) [Entitic mass] 32.6 pg 27.5-35.2 [facility] MCHC Auto (RBC) [Mass/Vol]Or dered By: Preet Burrows on 05-03-2023 MCHC (RBC) [Mass/Vol] 35.1 g/dL 32.5-35.6 [facility] MCV Auto (RBC) [Entitic vol] Ordered By: Preet Burrows on 05-03-2023 MCV (RBC) [Entitic vol] 93.0 fL 83.5-101 [facility] Monocyte distribution width [Entitic volume] in Blood by AutomatedOrdered By: Preet Burrows on 05-03-2023 Monocyte distribution width Auto (Bld) [Entitic vol] 15.82 % 0.00-20.00 [facility] Monocytes Auto (Bld) [#/Vol] Ordered By: Preet Burrows on 05-03-2023 Monocytes (Bld) [#/Vol] 0.5 10*3/uL 0.0-0.8 [facility] Monocytes/100 WBC Auto (Bld) Ordered By: Preet Burrows on 05-03-2023 Monocytes/100 WBC (Bld) 6.1 % . [facility] Natriuretic peptide B [Mass/ Vol]Ordered By: Preet Burrows on 05-03-2023 Natriuretic peptide B (Bld) [Mass/Vol] 20.0 pg/mL 5-100 [facility] Neutrophils Auto (Bld) [#/Vo l]Ordered By: Preet Burrows on 05-03-2023 Neutrophils (Bld) [#/Vol] 6.2 10*3/uL 1.8-7.7 [facility] Neutrophils/100 WBC Auto (Bl d)Ordered By: Preet Burrows on 05-03-2023 Neutrophils/100 WBC (Bld) 80.4 % . [facility] Nitrite Test strip Ql (U)Ord ered By: Preet Burrows on 05-03-2023 Nitrite Ql (U) Negative Negative [facility] No Panel InformationOrdered By: Preet Burrows on 05-03-2023 Blood Gas Critical Value See comment [facility] Comment on above: Critical Value topete d on: 05/03/2023 at 15:28 Blood Gas Sample Site Venous [facility] FiO2 21 % [facility] Venous Blood Base Excess 4.4 mmol/L -3.0-3.0 [facility] Venous Blood Oxygen Content 2.8 mmol/L 6.6-9.7 [facility] Venous Blood Oxygen Saturation 31.2 % 73.0-76.0 [facility] Venous Blood Partial Pressure CO2 51.3 mm[Hg] 38.0-50.0 [facility] Venous Blood Partial Pressure O2 18.5 mm[Hg] 35.0-45.0 [facility] Venous Blood pH 7.39 7.32-7.43 [facility] Estimated GFR (CKD-EPI) 34.376 mL/Min [facility] Creatinine Clearance (Chem 35.50 [facility] Nucleated erythrocytes [Pres ence] in Blood by Automated countOrdered By: Preet Burrows on 05-03-2023 Nucleated RBC Auto Ql (Bld) 0.1 /100{WBC} 0-0.5 [facility] Opiates [Presence] in Urine by Screen methodOrdered By: Eldon Ambriz on 05-03-2023 Opiates Screen Ql (U) Negative Negative [facility] Partial Thromboplastin Timeo n 05-03-2023 aPTT Coag (Bld) [Time] 22.8 s Low 25.1-36.5 [facility] Comment on above: Result Comment: PERF ORMED BY: [place] [address] PATHOLOGIST [employer] ANIL GUAMAN M.D. Performed By: #### C MP, TSH3, LIPID #### [address] Phencyclidine Screen Ql (U)O rdered By: Eldon Ambriz on 05-03-2023 Phencyclidine Ql (U) Negative Negative [facility] Platelet mean volume Auto (B ld) [Entitic vol]Ordered By: Preet Burrows on 05-03-2023 Platelet mean volume (Bld) [Entitic vol] 8.9 fL 6.6-10.1 [facility] Platelet poor plasma interna tional normalized ratio (INR) by coagulation assay (relatOrdered By: Preet Burrows on 05-03-2023 INR Coag (PPP) [Relative time] 1.0 {INR} [facility] Comment on above: INR Therapeutic Rang e [...] 05-03-2023 Platelets (Bld) [#/Vol] 169 10*3/uL 150-450 [facility] Potassium [Moles/volume] in Serum or PlasmaOrdered By: Preet Burrows on 05-03-2023 Potassium [Moles/Vol] 4.1 mmol/L 3.5-5.1 [facility] Protein Auto test strip (U) [Mass/Vol]Ordered By: Preet Burrows on 05-03-2023 Protein (U) [Mass/Vol] Negative Negative [facility] Prothrombin Time INRon 05-03 INR Coag (PPP) [Relative time] 1.0 {INR} Normal [facility] Comment on above: Result Comment: INR Therapeutic [...] 3 - 4.5 Performed By: #### C MP, TSH3, LIPID #### [facility] [address] PT Coag (PPP) [Time] 11.6 s Normal 9.0-12.9 [facility] Comment on above: Performed By: #### C MP, TSH3, LIPID #### [facility] [address] RBC Auto (Bld) [#/Vol]Ordere d By: Preet Burrows on 05-03-2023 RBC (Bld) [#/Vol] 4.40 10*6/uL 3.90-5.60 [facility] Respiratory (Upper) Panel, P CRon 05-03-2023 Respiratory [...] COVID-19 Detected/Not Detected Not detected Blank Space -- FLUA TEST INCLUDES Influenza A tests for the following clinically FLUA TEST INCLUDES significant subtypes: FLUA TEST INCLUDES - Influenza A FLUA TEST INCLUDES - Influenza A H1 FLUA TEST INCLUDES - Influenza A H1 2009 FLUA TEST INCLUDES - Influenza A H3 Blank Space -- PERFORMED BY: [address] [place] [address] PATHOLOGIST [employer] ANIL GUAMAN M.D. Normal [facility] Comment on above: Performed By: #### R AUDRA PANEL UPP., BIOFIRECOVNOTDE #### [facility] [address] [place] [address] Respiratory pathogens DNA an d RNA panel - Nasopharynx by SILVIA with non-probe detectionOrdered By: Eldon Ambriz on 05-03-2023 Respiratory pathogens DNA and RNA panel SILVIA+non-probe (Nph) [facility] Serum or plasma anion gap de terminationOrdered By: Preet Burrows on 05-03-2023 Anion gap [Moles/Vol] 14.6 mmol/L 6.0-15.0 [facility] Sodium [Moles/volume] in Ser um or PlasmaOrdered By: Preet Burrows on 05-03-2023 Sodium [Moles/Vol] 132 mmol/L 136-145 [facility] Sodium [Moles/volume] in Uri neOrdered By: Eldon Ambriz on 05-03-2023 Sodium (U) [Moles/Vol] 105 mmol/L [facility] Comment on above: No reference range e stablished Sodium, Urine (Random)on Sodium (U) [Moles/Vol] 105 mmol/L Normal [facility] Comment on above: Result Comment: No r eference range established PERFORMED BY: [address] [place] [address] PATHOLOGIST [employer] ANIL GUAMAN M.D. Performed By: #### U RDS, ADDONUAPLUS #### [facility] [address] [place], [place] [id number] [facility] Specific gravity Auto test s trip (U) [Rel density]Ordered By: Preet Burrows on 05-03-2023 Specific gravity (U) [Rel density] 1.013 1.001-1.030 [facility] Troponin I High Sensitivityo n 05-03-2023 Troponin I High Sensitivity 14.2 pg/mL Normal 0.0-20.0 [facility] Comment on above: Result Comment: PERF ORMED BY: [place] [address] PATHOLOGIST [employer] ANIL GUAMAN M.D. Performed By: #### C MP, TSH3, LIPID #### [facility] [address] Troponin I.cardiac [Mass/vol ume] in Serum or Plasma by Detection limit <= 0.01 ng/Ordered By: Preet Burrows on 05-03-2023 Troponin I.cardiac DL <= 0.01 ng/mL [Mass/Vol] 14.2 pg/mL 0.0-20.0 [facility] Urea nitrogen [Mass/volume] in Serum or PlasmaOrdered By: Preet Burrows on 05-03-2023 Urea nitrogen [Mass/Vol] 35 mg/dL 06-21 [facility] Urinalysison 05-03-2023 Appearance (U) Clear Normal Clear [facility] Comment on above: Order Comment: Reaso n for Exam Weight loss;Nausea vomiting;Type 2 diabetes mellitus with PT IS FASTING Performed By: #### C MP, TSH3, LIPID #### [facility] [address] [place] [address] [place] Bilirubin,Urine Negative Normal Negative [facility] Comment on above: Order Comment: Reaso n for Exam Weight loss;Nausea vomiting;Type 2 diabetes mellitus with PT IS FASTING Performed By: #### C MP, TSH3, LIPID #### [facility] [address] [place] [address] [place] Color (U) Yellow Normal Yellow [facility] Comment on above: Order Comment: Reaso n for Exam Weight loss;Nausea vomiting;Type 2 diabetes mellitus with PT IS FASTING Performed By: #### C MP, TSH3, LIPID #### [facility] [address] [place] [address] [place] Glucose Ql (U) >=1000 High Normal [facility] Comment on above: Order Comment: Reaso n for Exam Weight loss;Nausea vomiting;Type 2 diabetes mellitus with PT IS FASTING Performed By: #### C MP, TSH3, LIPID #### [facility] [address] Ketones Ql (U) Trace High Negative [facility] Comment on above: Order Comment: Reaso n for Exam Weight loss;Nausea vomiting;Type 2 diabetes mellitus with PT IS FASTING Performed By: #### C MP, TSH3, LIPID #### [facility] [address] Leukocyte esterase Test strip Ql (U) Negative Normal Negative [facility] Comment on above: Order Comment: Reaso n for Exam Weight loss;Nausea vomiting;Type 2 diabetes mellitus with PT IS FASTING Performed By: #### C MP, TSH3, LIPID #### [facility] [address] Nitrite,Urine Negative Normal Negative [facility] Comment on above: Order Comment: Reaso n for Exam Weight loss;Nausea vomiting;Type 2 diabetes mellitus with PT IS FASTING Performed By: #### C MP, TSH3, LIPID #### [facility] [address] Occult Blood,Urine Negative Normal Negative [facility] Comment on above: Order Comment: Reaso n for Exam Weight loss;Nausea vomiting;Type 2 diabetes mellitus with PT IS FASTING Result Comment: PERF ORMED BY: [place] [address] PATHOLOGIST [employer] ANIL GUAMAN M.D. Performed By: #### C MP, TSH3, LIPID #### [facility] [address] [place] [address] [place] pH (U) 5.5 [pH] Normal 5.0-9.0 [facility] Comment on above: Order Comment: Reaso n for Exam Weight loss;Nausea vomiting;Type 2 diabetes mellitus with PT IS FASTING Performed By: #### C MP, TSH3, LIPID #### [facility] [address] [place] [address] [place] Protein,Urine Negative Normal Negative [facility] Comment on above: Order Comment: Reaso n for Exam Weight loss;Nausea vomiting;Type 2 diabetes mellitus with PT IS FASTING Performed By: #### C MP, TSH3, LIPID #### [facility] [address] Specificy [place],Urine 1.013 Normal 1.001-1.030 [facility] Comment on above: Order Comment: Reaso n for Exam Weight loss;Nausea vomiting;Type 2 diabetes mellitus with PT IS FASTING Performed By: #### C MP, TSH3, LIPID #### [facility] [address] [place] [address] [place] Urobilinogen,Urine Normal Normal Normal [facility] Comment on above: Order Comment: Reaso n for Exam Weight loss;Nausea vomiting;Type 2 diabetes mellitus with PT IS FASTING Performed By: #### C MP, TSH3, LIPID #### [facility] [address] Urine clarity by refractomet ry automatedOrdered By: Preet Burrows on 05-03-2023 Clarity Refractometry automated (U) Clear Clear [facility] Urine glucose measurement by automated test strip (mass/volume)Ordered By: Preet Burrows on 05-03-2023 Glucose Auto test strip (U) [Mass/Vol] >=1000 mg/dL Normal [facility] Urine hemoglobin detection b y automated test stripOrdered By: Preet Burrows on 05-03-2023 Hemoglobin Auto test strip Ql (U) Negative Negative [facility] Urine leukocyte esterase det ection by automated test stripOrdered By: Preet Burrows on 05-03-2023 Leukocyte esterase Auto test strip Ql (U) Negative Negative [facility] Urobilinogen Auto test strip (U) [Mass/Vol]Ordered By: Preet Burrows on 05-03-2023 Urobilinogen (U) [Mass/Vol] Normal mg/dL Normal [facility] Venous Blood Gason 3 CO2 [Moles/Vol] 32.1 mmol/L High 24.0-29.0 [facility] Comment on above: Performed By: #### V BG #### Point of Care testing , HCO3 (Bld) [Moles/Vol] 30.6 mmol/L High 23.0-29.0 [facility] Comment on above: Performed By: #### V BG #### Point of Care testing , Respiratory Critical Normal [facility] Comment on above: Result Comment: Crit ical Value called on: 05/03/2023 at 15:28 PERFORMED BY: [facility] [place] [address] PATHOLOGIST [employer] ANIL GUAMAN M.D. Performed By: #### V BG #### Point of Care testing , VBG Base Excess 4.4 mmol/L High -3.0-3.0 [facility] Comment on above: Performed By: #### V BG #### Point of Care testing , VBG Draw Site Venous [facility] Comment on above: Performed By: #### V BG #### Point of Care testing , VBG Frac Inspired O2 21 % Normal [facility] Comment on above: Performed By: #### V BG #### Point of Care testing , VBG O2 Content 2.8 mmol/L Low 6.6-9.7 [facility] Comment on above: Performed By: #### V BG #### Point of Care testing , VBG Oxygen Saturation 31.2 % Off scale low 73.0-76.0 [facility] Comment on above: Performed By: #### V BG #### Point of Care testing , VBG PCO2 51.3 mm[Hg] High 38.0-50.0 [facility] Comment on above: Performed By: #### V BG #### Point of Care testing , VBG PH Venous PH 7.39 Normal 7.32-7.43 [facility] Comment on above: Performed By: #### V BG #### Point of Care testing , VBG PO2 18.5 mm[Hg] Off scale low 35.0-45.0 [facility] Comment on above: Performed By: #### V BG #### Point of Care testing , WBC Auto (Bld) [#/Vol]Ordere d By: Preet Burrows on 05-03-2023 WBC (Bld) [#/Vol] 7.7 10*3/uL 4.1-10.5 [facility] XR chest 2V*on 05-03-2023 XR chest 2V* [facility] [place] [address] [place] [id number] XRay Report Signed 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 MR#: [id number] : 1970 Acct:[id number] Age/Sex: 52 / M ADM Date: 05/03/23 [...] Flor Almonte M.D.05/03/2023 2:03 PM Dictation Location: [place] [address] Transcribed By: [facility] 05/03/231402 Dictated By: Flor Almonte MD 05/03/231400 Signed By: 05/03/23 140 Normal [facility] pH Auto test strip (U)Ordere d By: Preet Burrows on 05-03-2023 pH (U) 5.5 [pH] 5.0-9.0 [facility] Basophils Auto (Bld) [#/Vol] Ordered By: Bucky Cheng on 01-07-2023 Basophils (Bld) [#/Vol] 0.1 10*3/uL 0.0-0.2 [facility] Basophils/100 WBC Auto (Bld) Ordered By: Bucky Cheng on 01-07-2023 Basophils/100 WBC (Bld) 0.8 % . [facility] Body fluid albumin measureme nt (mass/volume)Ordered By: Bucky Cheng on 01-07-2023 Albumin (Body fld) [Mass/Vol] 3.8 g/dL 3.2-5.5 [facility] Complete Blood Count Auto Di ffon 01-07-2023 Basophils (Bld) [#/Vol] 0.1 10*3/uL Normal 0.0-0.2 [facility] Comment on above: Result Comment: PERF ORMED BY: [place] [address] PATHOLOGIST [employer] ANIL GUAMAN M.D. Performed By: #### U RDS, ADDONUAPLUS #### [facility] [address] [place] [address] Basophils/100 WBC (Bld) 0.8 % Normal . [facility] Comment on above: Performed By: #### U RDS, ADDONUAPLUS #### [facility] [address] [place] [address] Eosinophils (Bld) [#/Vol] 0.0 10*3/uL Normal 0.0-0.45 [facility] Comment on above: Performed By: #### U RDS, ADDONUAPLUS #### [address] Eosinophils/100 WBC (Bld) 0.5 % Normal . [facility] Comment on above: Performed By: #### U RDS, ADDONUAPLUS #### [facility] [address] [place] [address] Erythrocyte distribution width (RBC) [Ratio] 12.8 % Normal 12.0-14.8 [facility] Comment on above: Performed By: #### U RDS, ADDONUAPLUS #### [facility] [address] [place] [address] Hematocrit (Bld) [Volume fraction] 43.8 % Normal 38.8-50.0 [facility] Comment on above: Performed By: #### U RDS, ADDONUAPLUS #### [facility] [address] Hemoglobin (Bld) [Mass/Vol] 15.1 g/dL Normal 13.0-17.0 [facility] Comment on above: Performed By: #### U RDS, ADDONUAPLUS #### [facility] [address] Lymphocytes (Bld) [#/Vol] 2.0 10*3/uL Normal 1.00-4.8 [facility] Comment on above: Performed By: #### U RDS, ADDONUAPLUS #### [facility] [address] Lymphocytes/100 WBC (Bld) 24.6 % Normal . [facility] Comment on above: Performed By: #### U RDS, ADDONUAPLUS #### [address] MCH (RBC) [Entitic mass] 32.1 pg Normal 27.5-35.2 [facility] Comment on above: Performed By: #### U RDS, ADDONUAPLUS #### [place] [address] [place] MCV (RBC) [Entitic vol] 93.3 fL Normal 83.5-101 [facility] Comment on above: Performed By: #### U RDS, ADDONUAPLUS #### [facility] [address] [place] [address] Mean Corpuscular HGB Conc 34.4 g/dL Normal 32.5-35.6 [facility] Comment on above: Performed By: #### U RDS, ADDONUAPLUS #### [facility] [address] [place] [address] [place] Monocytes (Bld) [#/Vol] 0.6 10*3/uL Normal 0.0-0.8 [facility] Comment on above: Performed By: #### U RDS, ADDONUAPLUS #### [facility] [address] [place] [address] [place] Monocytes/100 WBC (Bld) 21.16 % High 0.00-20.00 [facility] Comment on above: Result Comment: For adults in ED, MDW > 20.0 may be associated with a higher risk of sepsis during the first 12 hrs of hospital admission Performed By: #### U NICOLAS ADDONUAPLUS #### [facility] [address] [place] [address] [place] Monocytes/100 WBC (Bld) 8.1 % Normal . [facility] Comment on above: Performed By: #### U NICOLAS ADDONUAPLUS #### [facility] [address] [place] [address] [place] Neutrophils (Bld) [#/Vol] 5.3 10*3/uL Normal 1.8-7.7 [facility] Comment on above: Performed By: #### U NICOLAS ADDONUAPLUS #### [place] [address] [place] Neutrophils/100 WBC (Bld) 66.0 % Normal . [facility] Comment on above: Performed By: #### U NICOLAS ADDONUAPLUS #### [facility] [address] [place] [address] [place] NRBC% 0.0 /100{WBC} Normal 0-0.5 [facility] Comment on above: Performed By: #### U NICOLAS ADDONUAPLUS #### [facility] [address] [place] [address] [place] Platelet mean volume (Bld) [Entitic vol] 9.0 fL Normal 6.6-10.1 [facility] Comment on above: Performed By: #### U NICOLAS ADDONUAPLUS #### [facility] [address] [place] [address] [place] Platelets (Bld) [#/Vol] 197 10*3/uL Normal 150-450 [facility] Comment on above: Performed By: #### U NICOLAS ADDONUAPLUS #### [facility] [address] [place] [address] [place] RBC (Bld) [#/Vol] 4.69 10*6/uL Normal 3.90-5.60 [facility] Comment on above: Performed By: #### U NICOLAS ADDONUAPLUS #### [facility] [address] [place] [address] WBC (Bld) [#/Vol] 8.0 10*3/uL Normal 4.1-10.5 [facility] Comment on above: Performed By: #### U RDS, ADDONUAPLUS #### [facility] [address] [place] [address] Comprehensive Metabolic Pane rudolph 01-07-2023 Albumin [Mass/Vol] 3.8 g/dL Normal 3.2-5.5 [facility] Comment on above: Performed By: #### U RDS, ADDONUAPLUS #### [facility] [address] [place] [address] Albumin/Globulin [Mass ratio] 1.0 {ratio} Normal [facility] Comment on above: Performed By: #### U RDS, ADDONUAPLUS #### [facility] [address] [place] [address] ALP [Catalytic activity/Vol] 75 U/L Normal 32-92 [facility] Comment on above: Performed By: #### U RDS, ADDONUAPLUS #### [facility] [address] [place] [address] ALT [Catalytic activity/Vol] 20 U/L Normal 10-60 [facility] Comment on above: Performed By: #### U RDS, ADDONUAPLUS #### [facility] [address] [place] [address] Anion gap [Moles/Vol] 15.6 mmol/L High 6.0-15.0 [facility] Comment on above: Performed By: #### U RDS, ADDONUAPLUS #### [facility] [address] [place] [address] AST [Catalytic activity/Vol] 15 U/L Normal 10-42 [facility] Comment on above: Performed By: #### U RDS, ADDONUAPLUS #### [facility] [address] [place] [address] Bilirubin [Mass/Vol] 1.2 mg/dL Normal 0.3-1.2 [facility] Comment on above: Performed By: #### U RDS, ADDONUAPLUS #### [facility] [address] Calcium [Mass/Vol] 9.4 mg/dL Normal 8.2-10.2 [facility] Comment on above: Performed By: #### U RDS, ADDONUAPLUS #### [facility] [address] Chloride [Moles/Vol] 98 mmol/L Normal 95-114 [facility] Comment on above: Performed By: #### U RDS, ADDONUAPLUS #### [facility] [address] CO2 [Moles/Vol] 27.8 mmol/L Normal 22.0-30.0 [facility] Comment on above: Performed By: #### U RDS, ADDONUAPLUS #### [facility] [address] Creatinine [Mass/Vol] 1.07 mg/dL Normal 0.64-1.27 [facility] Comment on above: Performed By: #### U RDS, ADDONUAPLUS #### [facility] [address] [place] [address] Creatinine Clr Calc Pharmacy 85.04 [facility] Comment on above: Performed By: #### U RDS, ADDONUAPLUS #### [facility] [address] [place] [address] Estimated GFR ( [place] > 60 [facility] Comment on above: Result Comment: GFR estimated reference range: According to KDOQI guidelines, <60 ml/min/1.73m2 is sufficient to diagnose a patient with chronic kidney disease. Performed By: #### U RDS, ADDONUAPLUS #### [facility] [address] [place] [address] Estimated GFR (Non- Am > 60 [facility] Comment on above: Performed By: #### U RDS, ADDONUAPLUS #### [facility] [address] [place] [address] [place] Globulin (S) [Mass/Vol] 3.7 g/dL Normal [facility] Comment on above: Performed By: #### U RDS, ADDONUAPLUS #### [facility] [address] Glucose [Mass/Vol] 351 mg/dL High 70-100 [facility] Comment on above: Result Comment: [place] Glucose Reference Range is dependent on time and content of last meal. Glucose of more than 200 mg/dL in a nonstressed, ambulatory subject supports the diagnosis of Diabetes Mellitus. ADA recommended reference range Performed By: #### U RDS, ADDONUAPLUS #### [facility] [address] Potassium [Moles/Vol] 4.4 mmol/L Normal 3.5-5.1 [facility] Comment on above: Performed By: #### U RDS, ADDONUAPLUS #### [facility] [address] [place] [address] [place] Protein [Mass/Vol] 7.5 g/dL Normal 6.1-7.9 [facility] Comment on above: Performed By: #### U RDS, ADDONUAPLUS #### [facility] [address] [place] [address] [place] Sodium [Moles/Vol] 137 mmol/L Normal 136-146 [facility] Comment on above: Performed By: #### U RDS, ADDONUAPLUS #### [facility] [address] [place] [id number] [place] Urea nitrogen [Mass/Vol] 35 mg/dL High 9-23 [facility] Comment on above: Performed By: #### U RDS, ADDONUAPLUS #### [facility] [address] [place] [id number] [place] Creatinine and Glomerular fi ltration rate.predicted panel (S/P/Bld)Ordered By: Bucky Cheng on 01-07-2023 Creatinine [Mass/Vol] 1.07 mg/dL 0.64-1.27 [facility] ECG 12 lead ECGon 01-07-2023 ECG [address] [facility] [place] [address] [place] [address] Electrocardiograph Report Signed 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 MR#: [id number] : 1970 Acct:[id number] Age/Sex: 52 / M ADM Date: 01/07/23 Loc: ER Room: Type: [facility] ER Attending Dr: Ordering Provider: Loy Nicholson [...] Loy Nicholson MD 12/29 12/20 0148 Normal [facility] Eosinophils Auto (Bld) [#/Vo l]Ordered By: Bucky Cheng on 01-07-2023 Eosinophils (Bld) [#/Vol] 0.0 10*3/uL 0.0-0.45 [facility] Eosinophils/100 WBC Auto (Bl d)Ordered By: Bucky Cheng on 01-07-2023 Eosinophils/100 WBC (Bld) 0.5 % . [facility] Erythrocyte distribution wid th Auto (RBC) [Ratio]Ordered By: Bucky Cheng on 01-07-2023 Erythrocyte distribution width (RBC) [Ratio] 12.8 % 12.0-14.8 [facility] Estimated glomerular filtrat ion rate (GFR) non- AmericanOrdered By: Bucky Cheng on 01-07-2023 GFR/1.73 sq M.predicted among non-blacks MDRD (S/P/Bld) [Vol rate/Area] > 60 mL/Min [facility] Globulin Calc (S) [Mass/Vol] Ordered By: Bucky Cheng on 01-07-2023 Globulin (S) [Mass/Vol] 3.7 g/dL [facility] Hematocrit Auto (Bld) [Volum e fraction]Ordered By: Bucky Cheng on 01-07-2023 Hematocrit (Bld) [Volume fraction] 43.8 % 38.8-50.0 [facility] Hemoglobin [Mass/volume] in BloodOrdered By: Bucky Cheng on 01-07-2023 Hemoglobin (Bld) [Mass/Vol] 15.1 g/dL 13.0-17.0 [facility] Laboratory - Chemistry and C hemistry - challengeOrdered By: Bucky Cheng on 01-07-2023 Lipase [Catalytic activity/Vol] 58.0 U/L [address] [place] [address] Leukocytes [#/volume] correc billy for nucleated erythrocytes in Blood by Automated counOrdered By: Bucky Cheng on 01-07-2023 WBC corrected for nucl RBC Auto (Bld) [#/Vol] 8.0 10*3/uL 4.1-10.5 [facility] Lipaseon 01-07-2023 Lipase [Catalytic activity/Vol] 58.0 U/L High [address] [place] [address] Comment on above: Result Comment: PERF ORMED BY: [place] [address] PATHOLOGIST MICROFILM [employer]OUNTER ANIL GUAMAN M.D. Performed By: #### U RDS, ADDONUAPLUS #### [address] Lymphocytes Auto (Bld) [#/Vo l]Ordered By: Bucky Cheng on 01-07-2023 Lymphocytes (Bld) [#/Vol] 2.0 10*3/uL 1.00-4.8 [facility] Lymphocytes/100 WBC Auto (Bl d)Ordered By: Bucky Cheng on 01-07-2023 Lymphocytes/100 WBC (Bld) 24.6 % . [facility] MCH Auto (RBC) [Entitic mass ]Ordered By: Bucky Cheng on 01-07-2023 MCH (RBC) [Entitic mass] 32.1 pg 27.5-35.2 [facility] MCHC Auto (RBC) [Mass/Vol]Or dered By: Bucky Cheng on 01-07-2023 MCHC (RBC) [Mass/Vol] 34.4 g/dL 32.5-35.6 [facility] MCV Auto (RBC) [Entitic vol] Ordered By: Bucky Cheng on 01-07-2023 MCV (RBC) [Entitic vol] 93.3 fL 83.5-101 [facility] Monocyte distribution width [Entitic volume] in Blood by AutomatedOrdered By: Bucky Cheng on 01-07-2023 Monocyte distribution width Auto (Bld) [Entitic vol] 21.16 % 0.00-20.00 [facility] Comment on above: For adults in ED, MD W > 20.0 may be associated with a higher risk of sepsis during the first 12 hrs of hospital admission Monocytes Auto (Bld) [#/Vol] Ordered By: Bucky Cheng on 01-07-2023 Monocytes (Bld) [#/Vol] 0.6 10*3/uL 0.0-0.8 [facility] Monocytes/100 WBC Auto (Bld) Ordered By: Bucky Cheng on 01-07-2023 Monocytes/100 WBC (Bld) 8.1 % . [facility] Neutrophils Auto (Bld) [#/Vo l]Ordered By: uBcky Cheng on 01-07-2023 Neutrophils (Bld) [#/Vol] 5.3 10*3/uL 1.8-7.7 [facility] Neutrophils/100 WBC Auto (Bl d)Ordered By: Bucky Cheng on 01-07-2023 Neutrophils/100 WBC (Bld) 66.0 % . [facility] No Panel InformationOrdered By: Bucky Cheng on 01-07-2023 Estimated GFR () > 60 mL/Min [facility] Comment on above: GFR estimated refere nce range: According to KDOQI guidelines, <60 ml/min/1.73m2 is sufficient to diagnose a patient with chronic kidney disease. Pharmacy Creatinine Clearance (Chem 85.04 [facility] Nucleated erythrocytes [Pres ence] in Blood by Automated countOrdered By: Bucky Cheng on 01-07-2023 Nucleated RBC Auto Ql (Bld) 0.0 /100{WBC} 0-0.5 [facility] Platelet mean volume Auto (B ld) [Entitic vol]Ordered By: Bucky Cheng on 01-07-2023 Platelet mean volume (Bld) [Entitic vol] 9.0 fL 6.6-10.1 [facility] Platelets Auto (Bld) [#/Vol] Ordered By: Bucky Cheng on 01-07-2023 Platelets (Bld) [#/Vol] 197 10*3/uL 150-450 [facility] Protein [Mass/volume] in Ser um or PlasmaOrdered By: Bucky Cheng on 01-07-2023 Protein [Mass/Vol] 7.5 g/dL 6.1-7.9 [facility] RBC Auto (Bld) [#/Vol]Ordere d By: Bucky Cheng on 01-07-2023 RBC (Bld) [#/Vol] 4.69 10*6/uL 3.90-5.60 [facility] Serum or plasma alanine humphrey otransferase measurement without P-5'-P (enzymatic activiOrdered By: Bucky Cheng on 01-07-2023 ALT No additional P-5'-P [Catalytic activity/Vol] 20 U/L 10-60 [facility] Serum or plasma albumin/glob ulin mass ratioOrdered By: Bucky Cheng on 01-07-2023 Albumin/Globulin [Mass ratio] 1.0 {ratio} [facility] Serum or plasma alkaline suzi sphatase measurement (enzymatic activity/volume)Ordered By: Bucky Cheng on 01-07-2023 ALP [Catalytic activity/Vol] 75 U/L 32-92 [facility] Serum or plasma anion gap de terminationOrdered By: Bucky Cheng on 01-07-2023 Anion gap [Moles/Vol] 15.6 mmol/L 6.0-15.0 [facility] Serum or plasma aspartate am inotransferase measurement (enzymatic activity/volume)Ordered By: Bucky Cheng on 01-07-2023 AST [Catalytic activity/Vol] 15 U/L 10-42 [facility] Serum or plasma calcium travis urement (mass/volume)Ordered By: Bucky Cheng on 01-07-2023 Calcium [Mass/Vol] 9.4 mg/dL 8.2-10.2 [facility] Serum or plasma chloride hollie surement (moles/volume)Ordered By: Bucky Cheng on 01-07-2023 Chloride [Moles/Vol] 98 mmol/L 95-114 [facility] Serum or plasma glucose travis urement (mass/volume)Ordered By: Bucky Cheng on 01-07-2023 Glucose [Mass/Vol] 351 mg/dL 70-100 [facility] Comment on above: ADA recommended refe rence rangeRandom Glucose Reference Range is dependent on time and content of last meal. Glucose of more than 200 mg/dL in a nonstressed, ambulatory subject supports the diagnosis of Diabetes Mellitus. Serum or plasma potassium me asurement (moles/volume)Ordered By: Bucky Cheng on 01-07-2023 Potassium [Moles/Vol] 4.4 mmol/L 3.5-5.1 [facility] Serum or plasma sodium measu rement (moles/volume)Ordered By: Bucky Cheng on 01-07-2023 Sodium [Moles/Vol] 137 mmol/L 136-146 [facility] Serum or plasma total biliru bin measurement (mass/volume)Ordered By: Bucky Cheng on 01-07-2023 Bilirubin [Mass/Vol] 1.2 mg/dL 0.3-1.2 [facility] Serum or plasma total carbon dioxide measurement (moles/volume)Ordered By: Bucky Cheng on 01-07-2023 CO2 [Moles/Vol] 27.8 mmol/L 22.0-30.0 [facility] Serum or plasma urea nitroge n measurement (mass/volume)Ordered By: Bucky Cheng on 01-07-2023 Urea nitrogen [Mass/Vol] 35 mg/dL 9-23 [facility] Troponin I High Sensitivityo n 01-07-2023 Troponin I High Sensitivity 11 pg/mL Normal 0-20 [facility] Comment on above: Result Comment: PERF ORMED BY: [place] [address] PATHOLOGIST [employer]CR[employer]IL[employer]OUN[employer] ANIL GUAMAN M.D. Performed By: #### U TEJ VALENZUELA #### [address] Troponin I.cardiac [Mass/vol ume] in Serum or Plasma by High sensitivity methodOrdered By: Bucky Cheng on 01-07-2023 Troponin I.cardiac High sensitivity method [Mass/Vol] 11 pg/mL 0-20 [facility] WBC Auto (Bld) [#/Vol]Ordere d By: Bucky Cheng on 01-07-2023 WBC (Bld) [#/Vol] 8.0 10*3/uL 4.1-10.5 [facility] XR chest 1V portableon 01-07 XR chest 1V portable [facility] [place] [address] [place] [address] XRay Report Signed 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 MR#: [id number] : 1970 Acct:[id number] Age/Sex: 52 / M ADM Date: 01/07/23 Loc: ER Room: Type: [facility] ER Attending Dr: Copies to: DO [...] Flor Almonte M.D.01/07/2023 8:37 PM Dictation Location: [place] [address] Transcribed By: [facility] 01/07/232036 Dictated By: Flor Almonte MD 01/07/232034 Signed By: 01/07/232036 [facility] CT head/brain wo conon 11-10 CT head/brain wo con [facility] [place] [address] [place] [address] CT Scan Report Signed 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 MR#: [id number] : 1970 Acct:[id number] Age/Sex: 52 / M ADM Date: 11/10/22 Loc: CT Room: Type: [facility] Attending Dr: Crow Dean DO Copies to: [...] Tae Seals M.D.11/10/2022 11:43 AM Dictation Location: [place] [address] Transcribed By: [facility] 11/10/22 1143 Dictated By: Tae Seals II, MD 11/10/22 1136 Signed By: 11/10/22 1143 [facility] US gall bladderon 11-10-[address] [facility] [place] [address] [place] [address] Ultrasound Report Signed 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 MR#: [id number] : 1970 Acct:[id number] Age/Sex: 52 / M ADM Date: 11/10/22 Loc: CT Room: Type: [facility] Attending Dr: Crow Dean DO Ordering [...] Tae Seals M.D.11/10/2022 10:23 AM Dictation Location: [place] [address] Tech: Karen Christopher Transcribed By: WILEY 11/10/22 1023 Dictated By: Tae Seals II, MD 11/10/22 1021 Signed By: 11/10/22 1023 Normal [facility] A1C with Estimated Average G marilu 11-04-2022 Glucose [Mass/Vol] 220 mg/dL Normal [facility] Comment on above: Order Comment: Reaso n for Exam Weight loss;Nausea vomiting;Type 2 diabetes mellitus with Result Comment: PERF ORMED BY: [address] [address] PATHOLOGIST [employer]CR[employer]IL[employer] ANIL GUAMAN M.D. Performed By: #### U RDS, ADDONUAPLUS #### [facility] [address] HbA1c (Bld) [Mass fraction] 9.3 % High 4.3-5.6 [facility] Comment on above: Order Comment: Reaso n for Exam Weight loss;Nausea vomiting;Type 2 diabetes mellitus with Result Comment: Incr eased risk for diabetes: 5.7 - 6.4 diabetes: >6.4 glycemic control for adults with diabetes: <7.0 Performed By: #### U RDS, ADDONUAPLUS #### [facility] [address] Basophils Auto (Bld) [#/Vol] Ordered By: Crow Dean on 11-04-2022 Basophils (Bld) [#/Vol] 0.1 10*3/uL 0.0-0.2 [facility] Basophils/100 WBC Auto (Bld) Ordered By: Crow Dean on 11-04-2022 Basophils/100 WBC (Bld) 0.8 % . [facility] Body fluid albumin measureme nt (mass/volume)Ordered By: Crow Dean on 11-04-2022 Albumin (Body fld) [Mass/Vol] 3.7 g/dL 3.2-5.5 [facility] Cholesterol [Mass/volume] in Serum or PlasmaOrdered By: Crow Dean on 11-04-2022 Cholesterol [Mass/Vol] 167 mg/dL 140-200 [facility] Comment on above: Chol less than 200 m g/dl low riskChol 201-239 mg/dl borderline riskChol 240 mg/dl and greater high risk Cholesterol in LDL Calc [Mas s/Vol]Ordered By: Crow Dean on 11-04-2022 Cholesterol in LDL [Mass/Vol] 73 mg/dL 0-100 [facility] Comment on above: LDL ATP III CLASSIFI CATIONLDL less than 100 mg/dL OptimalLDL 100-129 mg/dL Near or above optimalLDL 130-159 mg/dL Borderline highLDL 160-189 mg/dL HighLDL greater than 189 mg/dL Very high Cholesterol in VLDL Calc [Ma ss/Vol]Ordered By: Crow Dean on 11-04-2022 Cholesterol in VLDL [Mass/Vol] 56 mg/dL [facility] Complete Blood Count Auto Di ffon 11-04-2022 Basophils (Bld) [#/Vol] 0.1 10*3/uL Normal 0.0-0.2 [facility] Comment on above: Order Comment: Reaso n for Exam Weight loss;Nausea vomiting;Type 2 diabetes mellitus with Result Comment: PERF ORMED BY: [place] [address] PATHOLOGIST MICR[employer] ANIL GUAMAN M.D. Performed By: #### U RDS, ADDONUAPLUS #### [facility] [address] [place] [address] Basophils/100 WBC (Bld) 0.8 % Normal . [facility] Comment on above: Order Comment: Reaso n for Exam Weight loss;Nausea vomiting;Type 2 diabetes mellitus with Performed By: #### U RDS, ADDONUAPLUS #### [facility] [address] [place] [address] [place] Eosinophils (Bld) [#/Vol] 0.1 10*3/uL Normal 0.0-0.45 [facility] Comment on above: Order Comment: Reaso n for Exam Weight loss;Nausea vomiting;Type 2 diabetes mellitus with Performed By: #### U RDS, ADDONUAPLUS #### [facility] [address] [place] [address] [place] Eosinophils/100 WBC (Bld) 1.2 % Normal . [facility] Comment on above: Order Comment: Reaso n for Exam Weight loss;Nausea vomiting;Type 2 diabetes mellitus with Performed By: #### U RDS, ADDONUAPLUS #### [facility] [address] [place] [address] Erythrocyte distribution width (RBC) [Ratio] 12.5 % Normal 12.0-14.8 [facility] Comment on above: Order Comment: Reaso n for Exam Weight loss;Nausea vomiting;Type 2 diabetes mellitus with Performed By: #### U RDS, ADDONUAPLUS #### [address] Hematocrit (Bld) [Volume fraction] 39.4 % Normal 38.8-50.0 [facility] Comment on above: Order Comment: Reaso n for Exam Weight loss;Nausea vomiting;Type 2 diabetes mellitus with Performed By: #### U RDS, ADDONUAPLUS #### [address] Hemoglobin (Bld) [Mass/Vol] 13.6 g/dL Normal 13.0-17.0 [facility] Comment on above: Order Comment: Reaso n for Exam Weight loss;Nausea vomiting;Type 2 diabetes mellitus with Performed By: #### U RDS, ADDONUAPLUS #### [address] Lymphocytes (Bld) [#/Vol] 1.6 10*3/uL Normal 1.00-4.8 [facility] Comment on above: Order Comment: Reaso n for Exam Weight loss;Nausea vomiting;Type 2 diabetes mellitus with Performed By: #### U RDS, ADDONUAPLUS #### [address] Lymphocytes/100 WBC (Bld) 27.3 % Normal . [facility] Comment on above: Order Comment: Reaso n for Exam Weight loss;Nausea vomiting;Type 2 diabetes mellitus with Performed By: #### U RDS, ADDONUAPLUS #### [address] MCH (RBC) [Entitic mass] 32.1 pg Normal 27.5-35.2 [facility] Comment on above: Order Comment: Reaso n for Exam Weight loss;Nausea vomiting;Type 2 diabetes mellitus with Performed By: #### U RDS, ADDONUAPLUS #### [address] MCV (RBC) [Entitic vol] 93.0 fL Normal 83.5-101 [facility] Comment on above: Order Comment: Reaso n for Exam Weight loss;Nausea vomiting;Type 2 diabetes mellitus with Performed By: #### U RDS, ADDONUAPLUS #### [facility] [address] [place] [address] Mean Corpuscular HGB Conc 34.5 g/dL Normal 32.5-35.6 [facility] Comment on above: Order Comment: Reaso n for Exam Weight loss;Nausea vomiting;Type 2 diabetes mellitus with Performed By: #### U RDS, ADDONUAPLUS #### [facility] [address] [place] [address] [place] Monocytes (Bld) [#/Vol] 0.4 10*3/uL Normal 0.0-0.8 [facility] Comment on above: Order Comment: Reaso n for Exam Weight loss;Nausea vomiting;Type 2 diabetes mellitus with Performed By: #### U RDS, ADDONUAPLUS #### [place] [address] [place] Monocytes/100 WBC (Bld) 6.2 % Normal . [facility] Comment on above: Order Comment: Reaso n for Exam Weight loss;Nausea vomiting;Type 2 diabetes mellitus with Performed By: #### U RDS, ADDONUAPLUS #### [place] [address] [place] Neutrophils (Bld) [#/Vol] 3.9 10*3/uL Normal 1.8-7.7 [facility] Comment on above: Order Comment: Reaso n for Exam Weight loss;Nausea vomiting;Type 2 diabetes mellitus with Performed By: #### U RDS, ADDONUAPLUS #### [facility] [address] [place] [address] [place] Neutrophils/100 WBC (Bld) 64.5 % Normal . [facility] Comment on above: Order Comment: Reaso n for Exam Weight loss;Nausea vomiting;Type 2 diabetes mellitus with Performed By: #### U RDS, ADDONUAPLUS #### [facility] [address] [place] [address] [place] NRBC% 0.1 /100{WBC} Normal 0-0.5 [facility] Comment on above: Order Comment: Reaso n for Exam Weight loss;Nausea vomiting;Type 2 diabetes mellitus with Performed By: #### U RDS, ADDONUAPLUS #### [address] [place] [address] [place] Platelet mean volume (Bld) [Entitic vol] 8.6 fL Normal 6.6-10.1 [facility] Comment on above: Order Comment: Reaso n for Exam Weight loss;Nausea vomiting;Type 2 diabetes mellitus with Performed By: #### U RDS, ADDONUAPLUS #### [facility] [address] Platelets (Bld) [#/Vol] 168 10*3/uL Normal 150-450 [facility] Comment on above: Order Comment: Reaso n for Exam Weight loss;Nausea vomiting;Type 2 diabetes mellitus with Performed By: #### U RDS, ADDONUAPLUS #### [facility] [address] [place] [address] RBC (Bld) [#/Vol] 4.24 10*6/uL Normal 3.90-5.60 [facility] Comment on above: Order Comment: Reaso n for Exam Weight loss;Nausea vomiting;Type 2 diabetes mellitus with Performed By: #### U RDS, ADDONUAPLUS #### [facility] [address] [place] [address] WBC (Bld) [#/Vol] 6.0 10*3/uL Normal 4.1-10.5 [facility] Comment on above: Order Comment: Reaso n for Exam Weight loss;Nausea vomiting;Type 2 diabetes mellitus with Performed By: #### U RDS, ADDONUAPLUS #### [facility] [address] [place] [address] Comprehensive Metabolic Pane rudolph 11-04-2022 Albumin [Mass/Vol] 3.7 g/dL Normal 3.2-5.5 [facility] Comment on above: Order Comment: Reaso n for Exam Weight loss;Nausea vomiting;Type 2 diabetes mellitus with PT IS FASTING Performed By: #### C MP, TSH3, LIPID #### [facility] [address] [place] [address] Albumin/Globulin [Mass ratio] 1.3 {ratio} Normal [facility] Comment on above: Order Comment: Reaso n for Exam Weight loss;Nausea vomiting;Type 2 diabetes mellitus with PT IS FASTING Performed By: #### C MP, TSH3, LIPID #### [facility] [address] ALP [Catalytic activity/Vol] 58 U/L Normal 32-92 [facility] Comment on above: Order Comment: Reaso n for Exam Weight loss;Nausea vomiting;Type 2 diabetes mellitus with PT IS FASTING Performed By: #### C MP, TSH3, LIPID #### [facility] [address] ALT [Catalytic activity/Vol] 18 U/L Normal 10-60 [facility] Comment on above: Order Comment: Reaso n for Exam Weight loss;Nausea vomiting;Type 2 diabetes mellitus with PT IS FASTING Performed By: #### C MP, TSH3, LIPID #### [facility] [address] Anion gap [Moles/Vol] 14.3 mmol/L Normal 6.0-15.0 [facility] Comment on above: Order Comment: Reaso n for Exam Weight loss;Nausea vomiting;Type 2 diabetes mellitus with PT IS FASTING Performed By: #### C MP, TSH3, LIPID #### [facility] [address] [place] [address] AST [Catalytic activity/Vol] 12 U/L Normal 10-42 [facility] Comment on above: Order Comment: Reaso n for Exam Weight loss;Nausea vomiting;Type 2 diabetes mellitus with PT IS FASTING Performed By: #### C MP, TSH3, LIPID #### [facility] [address] [place] [address] Bilirubin [Mass/Vol] 1.0 mg/dL Normal 0.3-1.2 [facility] Comment on above: Order Comment: Reaso n for Exam Weight loss;Nausea vomiting;Type 2 diabetes mellitus with PT IS FASTING Performed By: #### C MP, TSH3, LIPID #### [facility] [address] Calcium [Mass/Vol] 9.2 mg/dL Normal 8.2-10.2 [facility] Comment on above: Order Comment: Reaso n for Exam Weight loss;Nausea vomiting;Type 2 diabetes mellitus with PT IS FASTING Performed By: #### C MP, TSH3, LIPID #### [facility] [address] Chloride [Moles/Vol] 96 mmol/L Normal 95-114 [facility] Comment on above: Order Comment: Reaso n for Exam Weight loss;Nausea vomiting;Type 2 diabetes mellitus with PT IS FASTING Performed By: #### C MP, TSH3, LIPID #### [facility] [address] CO2 [Moles/Vol] 27.1 mmol/L Normal 22.0-30.0 [facility] Comment on above: Order Comment: Reaso n for Exam Weight loss;Nausea vomiting;Type 2 diabetes mellitus with PT IS FASTING Performed By: #### C MP, TSH3, LIPID #### [address] Creatinine [Mass/Vol] 0.93 mg/dL Normal 0.64-1.27 [facility] Comment on above: Order Comment: Reaso n for Exam Weight loss;Nausea vomiting;Type 2 diabetes mellitus with PT IS FASTING Performed By: #### C MP, TSH3, LIPID #### [address] Estimated GFR ( [place] > 60 [facility] Comment on above: Order Comment: Reaso n for Exam Weight loss;Nausea vomiting;Type 2 diabetes mellitus with PT IS FASTING Result Comment: GFR estimated reference range: According to KDOQI guidelines, <60 ml/min/1.73m2 is sufficient to diagnose a patient with chronic kidney disease. Performed By: #### C MP, TSH3, LIPID #### [address] Estimated GFR (Non- Am > 60 [facility] Comment on above: Order Comment: Reaso n for Exam Weight loss;Nausea vomiting;Type 2 diabetes mellitus with PT IS FASTING Performed By: #### C MP, TSH3, LIPID #### [place] [address] [place] Globulin (S) [Mass/Vol] 2.9 g/dL Normal [facility] Comment on above: Order Comment: Reaso n for Exam Weight loss;Nausea vomiting;Type 2 diabetes mellitus with PT IS FASTING Performed By: #### C MP, TSH3, LIPID #### [facility] [address] Glucose [Mass/Vol] 242 mg/dL High 70-100 [facility] Comment on above: Order Comment: Reaso n for Exam Weight loss;Nausea vomiting;Type 2 diabetes mellitus with PT IS FASTING Result Comment: [facility] Glucose Reference Range is dependent on time and content of last meal. Glucose of more than 200 mg/dL in a nonstressed, ambulatory subject supports the diagnosis of Diabetes Mellitus. ADA recommended reference range Performed By: #### C MP, TSH3, LIPID #### [facility] [address] Potassium [Moles/Vol] 4.4 mmol/L Normal 3.5-5.1 [facility] Comment on above: Order Comment: Reaso n for Exam Weight loss;Nausea vomiting;Type 2 diabetes mellitus with PT IS FASTING Performed By: #### C MP, TSH3, LIPID #### [facility] [address] [place] [address] [place] Protein [Mass/Vol] 6.6 g/dL Normal 6.1-7.9 [facility] Comment on above: Order Comment: Reaso n for Exam Weight loss;Nausea vomiting;Type 2 diabetes mellitus with PT IS FASTING Performed By: #### C MP, TSH3, LIPID #### [facility] [address] [place] [address] [place] Sodium [Moles/Vol] 133 mmol/L Low 136-146 [facility] Comment on above: Order Comment: Reaso n for Exam Weight loss;Nausea vomiting;Type 2 diabetes mellitus with PT IS FASTING Performed By: #### C MP, TSH3, LIPID #### [facility] [address] [place] [id number] [place] Urea nitrogen [Mass/Vol] 14 mg/dL Normal 9-23 [facility] Comment on above: Order Comment: Reaso n for Exam Weight loss;Nausea vomiting;Type 2 diabetes mellitus with PT IS FASTING Performed By: #### C MP, TSH3, LIPID #### [facility] [address] Creatinine [Mass/volume] in UrineOrdered By: Crow Dean on 11-04-2022 Creatinine (U) [Mass/Vol] 276.3 mg/dL [facility] Comment on above: No reference range e stablished Creatinine and Glomerular fi ltration rate.predicted panel (S/P/Bld)Ordered By: Crow Dean on 11-04-2022 Creatinine [Mass/Vol] 0.93 mg/dL 0.64-1.27 [facility] Eosinophils Auto (Bld) [#/Vo l]Ordered By: Crow Dean on 11-04-2022 Eosinophils (Bld) [#/Vol] 0.1 10*3/uL 0.0-0.45 [facility] Eosinophils/100 WBC Auto (Bl d)Ordered By: Crow Dean on 11-04-2022 Eosinophils/100 WBC (Bld) 1.2 % . [facility] Erythrocyte distribution wid th Auto (RBC) [Ratio]Ordered By: Crow Dean on 11-04-2022 Erythrocyte distribution width (RBC) [Ratio] 12.5 % 12.0-14.8 [facility] Estimated glomerular filtrat ion rate (GFR) non- AmericanOrdered By: Crow Dean on 11-04-2022 GFR/1.73 sq M.predicted among non-blacks MDRD (S/P/Bld) [Vol rate/Area] > 60 mL/Min [facility] Globulin Calc (S) [Mass/Vol] Ordered By: Crow Dean on 11-04-2022 Globulin (S) [Mass/Vol] 2.9 g/dL [facility] Glucose mean value [Mass/vol ume] in Blood Estimated from glycated hemoglobinOrdered By: Crow Dean on 11-04-2022 Average glucose Estimated from glycated hemoglobin (Bld) [Mass/Vol] 220 mg/dL [facility] Hematocrit Auto (Bld) [Volum e fraction]Ordered By: Crow Dean on 11-04-2022 Hematocrit (Bld) [Volume fraction] 39.4 % 38.8-50.0 [facility] Hemoglobin A1c percentageOrd ered By: Crow Dean on 11-04-2022 HbA1c (Bld) [Mass fraction] 9.3 % 4.3-5.6 [facility] Comment on above: Increased risk for d iabetes: 5.7 - 6.4diabetes: >6.4glycemic control for adults with diabetes: <7.0 Hemoglobin [Mass/volume] in BloodOrdered By: Crow Dean on 11-04-2022 Hemoglobin (Bld) [Mass/Vol] 13.6 g/dL 13.0-17.0 [facility] Leukocytes [#/volume] correc billy for nucleated erythrocytes in Blood by Automated counOrdered By: Crow Dean on 11-04-2022 WBC corrected for nucl RBC Auto (Bld) [#/Vol] 6.0 10*3/uL 4.1-10.5 [facility] Lipid Panelon 11-04-2022 Cholesterol [Mass/Vol] 167 mg/dL Normal 140-200 [facility] Comment on above: Order Comment: Reaso n for Exam Weight loss;Nausea vomiting;Type 2 diabetes mellitus with PT IS FASTING Result Comment: Chol less than 200 mg/dl low risk Chol 201-239 mg/dl borderline risk Chol 240 mg/dl and greater high risk Performed By: #### C MP, TSH3, LIPID #### [facility] [address] Cholesterol in HDL [Mass/Vol] 37 mg/dL Normal 29-71 [facility] Comment on above: Order Comment: Reaso n for Exam Weight loss;Nausea vomiting;Type 2 diabetes mellitus with PT IS FASTING Result Comment: HDL CHOL ATP-III CLASSIFICATION Cardiovascular Risk HDL > or equal to 60 mg/dL LOW HDL < 40 mg/dL HIGH Performed By: #### C MP, TSH3, LIPID #### [facility] [address] [place] [id number] [facility] Cholesterol.total/Chol esterol in HDL [Mass ratio] 4.5 {ratio} Normal <5.0 [facility] Comment on above: Order Comment: Reaso n for Exam Weight loss;Nausea vomiting;Type 2 diabetes mellitus with PT IS FASTING Performed By: #### C MP, TSH3, LIPID #### [facility] [address] LDL Cholesterol,Calculated 73 mg/dL Normal 0-100 [facility] Comment on above: Order Comment: Reaso n for Exam Weight loss;Nausea vomiting;Type 2 diabetes mellitus with PT IS FASTING Result Comment: LDL ATP III CLASSIFICATION LDL less than 100 mg/dL Optimal LDL 100-129 mg/dL Near or above optimal LDL 130-159 mg/dL Borderline high LDL 160-189 mg/dL High LDL greater than 189 mg/dL Very high Performed By: #### C MP, TSH3, LIPID #### [facility] [address] Triglyceride w/Reflex 284 mg/dL High 35-149 [facility] Comment on above: Order Comment: [...] By: #### C MP, TSH3, LIPID #### [facility] [address] VLDL CHOLESTEROL 56 mg/dL Normal [facility] Comment on above: Order Comment: Reaso n for Exam Weight loss;Nausea vomiting;Type 2 diabetes mellitus with PT IS FASTING Performed By: #### C ORI, TSH3, LIPID #### [facility] [address] Lymphocytes Auto (Bld) [#/Vo l]Ordered By: Crow Dean on 11-04-2022 Lymphocytes (Bld) [#/Vol] 1.6 10*3/uL 1.00-4.8 [facility] Lymphocytes/100 WBC Auto (Bl d)Ordered By: Crow Dean on 11-04-2022 Lymphocytes/100 WBC (Bld) 27.3 % . [facility] MCH Auto (RBC) [Entitic mass ]Ordered By: Crow Dean on 11-04-2022 MCH (RBC) [Entitic mass] 32.1 pg 27.5-35.2 [facility] MCHC Auto (RBC) [Mass/Vol]Or dered By: Crow Dean on 11-04-2022 MCHC (RBC) [Mass/Vol] 34.5 g/dL 32.5-35.6 [facility] MCV Auto (RBC) [Entitic vol] Ordered By: Crow Dean on 11-04-2022 MCV (RBC) [Entitic vol] 93.0 fL 83.5-101 [facility] MicroAlb Creat Ratio,Uon Albumin DL <= 20 mg/L (U) [Mass/Vol] 1.9 mg/dL High 0.0-1.8 [facility] Comment on above: Order Comment: Reaso n for Exam Weight loss;Nausea vomiting;Type 2 diabetes mellitus with Performed By: #### V BG #### Point of Care testing , Creatinine, Urine (Random) 276.3 mg/dL Normal [facility] Comment on above: Order Comment: Reaso n for Exam Weight loss;Nausea vomiting;Type 2 diabetes mellitus with Result Comment: No r eference range established Performed By: #### V BG #### Point of Care testing , Microalbumin/Creatinin e Ratio 6.0 mg/g Normal 0.0-30.0 [facility] Comment on above: Order Comment: Reaso n for Exam Weight loss;Nausea vomiting;Type 2 diabetes mellitus with Result Comment: 30-3 00 mg/g indicates an increased risk for diabetic nephropathy. Greater than 300 mg/g is consistent with clinical nephropathy. (Am. J. Kidney Disease 1995, 25:107) PERFORMED BY: [facility] [address] [place] [address] PATHOLOGIST MICROFILM MOUNTER ANIL GUAMAN M.D. Performed By: #### V BG #### Point of Care testing , Monocytes Auto (Bld) [#/Vol] Ordered By: Crow Dean on 11-04-2022 Monocytes (Bld) [#/Vol] 0.4 10*3/uL 0.0-0.8 [facility] Monocytes/100 WBC Auto (Bld) Ordered By: Crow Dean on 11-04-2022 Monocytes/100 WBC (Bld) 6.2 % . [facility] Neutrophils Auto (Bld) [#/Vo l]Ordered By: Crow Dean on 11-04-2022 Neutrophils (Bld) [#/Vol] 3.9 10*3/uL 1.8-7.7 [facility] Neutrophils/100 WBC Auto (Bl d)Ordered By: Crow Dean on 11-04-2022 Neutrophils/100 WBC (Bld) 64.5 % . [facility] No Panel InformationOrdered By: Crow Dean on 11-04-2022 Estimated GFR () > 60 mL/Min [facility] Comment on above: GFR estimated refere nce range: According to KDOQI guidelines, <60 ml/min/1.73m2 is sufficient to diagnose a patient with chronic kidney disease. Pharmacy Creatinine Clearance (Chem N/A [facility] Nucleated erythrocytes [Pres ence] in Blood by Automated countOrdered By: Crow Dean on 11-04-2022 Nucleated RBC Auto Ql (Bld) 0.1 /100{WBC} 0-0.5 [facility] Platelet mean volume Auto (B ld) [Entitic vol]Ordered By: Crow Dean on 11-04-2022 Platelet mean volume (Bld) [Entitic vol] 8.6 fL 6.6-10.1 [facility] Platelets Auto (Bld) [#/Vol] Ordered By: Crow Dean on 11-04-2022 Platelets (Bld) [#/Vol] 168 10*3/uL 150-450 [facility] Protein [Mass/volume] in Ser um or PlasmaOrdered By: Crow Dean on 11-04-2022 Protein [Mass/Vol] 6.6 g/dL 6.1-7.9 [facility] RBC Auto (Bld) [#/Vol]Ordere d By: Crow Dean on 11-04-2022 RBC (Bld) [#/Vol] 4.24 10*6/uL 3.90-5.60 [facility] Serum or plasma alanine humphrey otransferase measurement without P-5'-P (enzymatic activiOrdered By: Crow Dean on 11-04-2022 ALT No additional P-5'-P [Catalytic activity/Vol] 18 U/L 10-60 [facility] Serum or plasma albumin/glob ulin mass ratioOrdered By: Crow Dean on 11-04-2022 Albumin/Globulin [Mass ratio] 1.3 {ratio} [facility] Serum or plasma alkaline suzi sphatase measurement (enzymatic activity/volume)Ordered By: Crow Dean on 11-04-2022 ALP [Catalytic activity/Vol] 58 U/L 32-92 [facility] Serum or plasma anion gap de terminationOrdered By: Crow Dean on 11-04-2022 Anion gap [Moles/Vol] 14.3 mmol/L 6.0-15.0 [facility] Serum or plasma aspartate am inotransferase measurement (enzymatic activity/volume)Ordered By: Crow Dean on 11-04-2022 AST [Catalytic activity/Vol] 12 U/L 10-42 [facility] Serum or plasma calcium travis urement (mass/volume)Ordered By: Crow Dean on 11-04-2022 Calcium [Mass/Vol] 9.2 mg/dL 8.2-10.2 [facility] Serum or plasma chloride hollie surement (moles/volume)Ordered By: Crow Dean on 11-04-2022 Chloride [Moles/Vol] 96 mmol/L 95-114 [facility] Serum or plasma glucose travis urement (mass/volume)Ordered By: Crow Dean on 11-04-2022 Glucose [Mass/Vol] 242 mg/dL 70-100 [facility] Comment on above: ADA recommended refe rence rangeRandom Glucose Reference Range is dependent on time and content of last meal. Glucose of more than 200 mg/dL in a nonstressed, ambulatory subject supports the diagnosis of Diabetes Mellitus. Serum or plasma high density lipoprotein (HDL) cholesterol measurementOrdered By: Crow Dean on 11-04-2022 Cholesterol in HDL [Mass/Vol] 37 mg/dL 29-71 [facility] Comment on above: HDL CHOL ATP-III CLA SSIFICATION Cardiovascular RiskHDL > or equal to 60 mg/dL LOWHDL < 40 mg/dL HIGH Serum or plasma potassium me asurement (moles/volume)Ordered By: Crow Dean on 11-04-2022 Potassium [Moles/Vol] 4.4 mmol/L 3.5-5.1 [facility] Serum or plasma sodium measu rement (moles/volume)Ordered By: Crow Dean on 11-04-2022 Sodium [Moles/Vol] 133 mmol/L 136-146 [facility] Serum or plasma total biliru bin measurement (mass/volume)Ordered By: Crow Dean on 11-04-2022 Bilirubin [Mass/Vol] 1.0 mg/dL 0.3-1.2 [facility] Serum or plasma total carbon dioxide measurement (moles/volume)Ordered By: Crow Dean on 11-04-2022 CO2 [Moles/Vol] 27.1 mmol/L 22.0-30.0 [facility] Serum or plasma total choles terol/high density lipoprotein (HDL) cholesterol mass ratOrdered By: Crow Dean on 11-04-2022 Cholesterol.total/Chol esterol in HDL [Mass ratio] 4.5 {ratio} <5.0 [facility] Serum or plasma urea nitroge n measurement (mass/volume)Ordered By: Crow Dean on 11-04-2022 Urea nitrogen [Mass/Vol] 14 mg/dL 9-23 [facility] TSH DL <= 0.005 mIU/L QnOrde red By: Crow Dean on 11-04-2022 TSH Qn 1.62 m[IU]/L 0.45-5.33 [facility] Thyroid Stimulating Hormoneo n 11-04-2022 TSH Qn 1.62 m[IU]/L Normal 0.45-5.33 [facility] Comment on above: Order Comment: Reaso n for Exam Weight loss;Nausea vomiting;Type 2 diabetes mellitus with PT IS FASTING Result Comment: PERF ORMED BY: [facility] [address] [place] [address] PATHOLOGIST MICROFILM MOUNTER ANIL GUAMAN M.D. Performed By: #### C MP, TSH3, LIPID #### [facility] [address] Triglyceride [Mass/volume] i n Serum or PlasmaOrdered By: Crow Dean on 11-04-2022 Triglyceride [Mass/Vol] 284 mg/dL 35-149 [facility] Comment on above: TRIG ATP III [...] 20 mg/L (U) [Mass/Vol] 1.9 mg/dL 0.0-1.8 [facility] Urine microalbumin/creatinin e mass ratioOrdered By: Crow Dean on 11-04-2022 Albumin/Creatinine DL <= 20 mg/L (U) [Mass ratio] 6.0 mg/g 0.0-30.0 [facility] Comment on above: 30-300 mg/g indicate s an increased risk for diabetic nephropathy. Greater than 300 mg/g is consistent with clinical nephropathy. (Am. J. Kidney Disease 1995, 25:107) WBC Auto (Bld) [#/Vol]Ordere d By: Crow Dean on 11-04-2022 WBC (Bld) [#/Vol] 6.0 10*3/uL 4.1-10.5 [facility] Albumin [Mass/volume] in Ser um or PlasmaOrdered By: Ladi Mina on 10-26-2022 Albumin [Mass/Vol] 3.9 g/dL 3.2-5.5 [facility] Amphetamine Screen Ql (U)Ord ered By: Ladi Mina on 10-26-2022 Amphetamines Ql (U) Negative Negative [facility] Automated erythrocytes count in urine sediment (number/area)Ordered By: Ladi Mina on 10-26-2022 RBC Auto (Urine sed) [#/Area] 0-1 [HPF] 0-4 [facility] Automated leukocytes count i n urine sediment (number/area)Ordered By: Ladi Mina on 10-26-2022 WBC Auto (Urine sed) [#/Area] 1-2 [HPF] 0-4 [facility] Barbiturates [Presence] in U rineOrdered By: Ladi Mina on 10-26-2022 Barbiturates Ql (U) Negative Negative [facility] Basic Metabolic Panelon 09-29 Anion gap [Moles/Vol] 14.8 mmol/L Normal 6.0-15.0 [facility] Comment on above: Performed By: #### U NICOLAS, ADDONUAPLUS #### [facility] [address] Calcium [Mass/Vol] 9.0 mg/dL Normal 8.2-10.2 [facility] Comment on above: Performed By: #### U NICOLAS, ADDONUAPLUS #### [facility] [address] Chloride [Moles/Vol] 98 mmol/L Normal 95-114 [facility] Comment on above: Performed By: #### U RDS, ADDONUAPLUS #### [facility] [address] CO2 [Moles/Vol] 29.2 mmol/L Normal 22.0-30.0 [facility] Comment on above: Performed By: #### U RDS, ADDONUAPLUS #### [facility] [address] [place] [address] [place] Creatinine [Mass/Vol] 1.19 mg/dL Normal 0.64-1.27 [facility] Comment on above: Performed By: #### U RDS, ADDONUAPLUS #### [facility] [address] [place] [address] [place] Creatinine Clr Calc Pharmacy 76.46 [facility] Comment on above: Performed By: #### U RDS, ADDONUAPLUS #### [facility] [address] Estimated GFR ( [place] > 60 [facility] Comment on above: Result Comment: GFR estimated reference range: According to KDOQI guidelines, <60 ml/min/1.73m2 is sufficient to diagnose a patient with chronic kidney disease. Performed By: #### U NICOLAS, ADDONUAPLUS #### [address] Estimated GFR (Non- Am > 60 Normal [facility] Comment on above: Performed By: #### U NICOLAS, ADDONUAPLUS #### [address] Glucose [Mass/Vol] 284 mg/dL High 70-100 [facility] Comment on above: Result Comment: [place] om Glucose Reference Range is dependent on time and content of last meal. Glucose of more than 200 mg/dL in a nonstressed, ambulatory subject supports the diagnosis of Diabetes Mellitus. ADA recommended reference range Performed By: #### U NICOLAS, ADDONUAPLUS #### [address] Potassium [Moles/Vol] 4.0 mmol/L Normal 3.5-5.1 [facility] Comment on above: Performed By: #### U NICOLAS, ADDONUAPLUS #### [address] Sodium [Moles/Vol] 138 mmol/L Normal 136-146 [facility] Comment on above: Performed By: #### U NICOLAS, ADDONUAPLUS #### [address] Urea nitrogen [Mass/Vol] 19 mg/dL Normal 9-23 [facility] Comment on above: Performed By: #### U NICOLAS, ADDONUAPLUS #### [place] [address] [place] Basophils Auto (Bld) [#/Vol] Ordered By: Ladi Bullimore on 10-26-2022 Basophils (Bld) [#/Vol] 0.1 10*3/uL 0.0-0.2 [facility] Basophils/100 WBC Auto (Bld) Ordered By: Ladi Bullimore on 10-26-2022 Basophils/100 WBC (Bld) 0.9 % . [facility] Benzodiazepines [Presence] i n UrineOrdered By: Ladi Mina on 10-26-2022 Benzodiazepines Ql (U) Negative Negative [facility] Bilirubin Test strip Ql (U)O rdered By: Ladi Bullimore on 10-26-2022 Bilirubin Ql (U) Negative Negative [facility] COVID CepheidOrdered By: Jolene robbins Bullimore on 10-26-2022 SARS-CoV-2 (COVID-19) Ab IA Ql Negative Negative [facility] Comment on above: This is a duplicate Cepheid Xpert Xpress CoV-2/Flu/RSV Plus RNA by RT-PCR result to be used for statistical tracking purpose only. SARS-CoV-2 (COVID-19) RNA SILVIA+probe Ql (Unsp spec) [facility] SARS-CoV-2 (COVID-19) RNA SILVIA+probe Ql (Unsp spec) [facility] COVID-19 / Flu A/B / RSV PCR on 10-26-2022 SARS-CoV-2 (COVID-19) RNA SILVIA+probe Ql (Unsp spec) COVID-19 Cepheid Result Negative for SARS-CoV-2 RNA by RT-PCR Flu A Cepheid Result Negative for Flu A RNA by RT-PCR Flu B Cepheid Result Negative for Flu B RNA by RT-PCR RSV Cepheid Result Negative for RSV RNA by RT-PCR COVID19 Blank Space -- Reference: Negative COVID19 Blank Space -- Cepheid Disclaimer The Cepheid Xpert Xpress CoV-2/Flu/RSV [...] or Cepheid Disclaimer revoked sooner. PERFORMED BY: [place] [address] PATHOLOGIST MICROFILM MOUNTER ANIL GUAMAN M.D. [facility] Comment on above: Performed By: #### V BG #### Point of Care testing , CT abdomen pelvis wo conon 1 12-26-2021 CT abdomen pelvis [facility] [place] [address] CT Scan Report Signed 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 MR#: [id number] : 1970 Acct:[id number] Age/Sex: 52 / M ADM Date: 10/26/22 Loc: ER Room: Type: [facility] ER Attending Dr: Copies to: NOMI [...] Flor Almonte M.D.10/26/2022 10:05 AM Dictation Location: [place] [address] Transcribed By: [facility] 10/26/22 1005 Dictated By: Flor Almonte MD 10/26/22 0952 Signed By: 10/26/22 1005 [facility] Cannabinoids [Presence] in U rine by Screen methodOrdered By: Ladi Mina on 10-26-2022 Cannabinoids Screen Ql (U) Negative Negative [facility] Comment on above: These are unconfirme d results and should not be used for legal purposes. Drug Cut-Off Concentration: AMPH 1000 ng/mL CHRISTINA 200 ng/mL CHRISTIANO 200 ng/mL COCM 300 ng/mL OP 300 ng/mL PCP 25 ng/mL THC 20 ng/mL Cepheid COVID PCR Negativeon 10-26-2022 SARS-CoV-2 (COVID-19) RNA SILVIA+probe Ql (Unsp spec) Negative Normal Negative [facility] Comment on above: Result Comment: This is a duplicate CepBetterLesson Xpert Xpress CoV-2/Flu/RSV Plus RNA by RT-PCR result to be used for statistical tracking purpose only. PERFORMED BY: [place] [address] PATHOLOGIST MICROFILM MOUNTER ANIL GUAMAN M.D. Performed By: #### V BG #### Point of Care testing , Color Auto (U)Ordered By: Kathryn Mina on 10-26-2022 Color (U) Yellow Yellow [facility] Complete Blood Count Auto Di ffon 10-26-2022 Basophils (Bld) [#/Vol] 0.1 10*3/uL Normal 0.0-0.2 [facility] Comment on above: Result Comment: PERF ORMED BY: [place] [address] PATHOLOGIST MICROFILM MOUNTER ANIL GUAMAN M.D. Performed By: #### U RDS, ADDONUAPLUS #### [address] Basophils/100 WBC (Bld) 0.9 % Normal . [facility] Comment on above: Performed By: #### U RDS, ADDONUAPLUS #### [facility] [address] [place] [address] [place] Eosinophils (Bld) [#/Vol] 0.1 10*3/uL Normal 0.0-0.45 [facility] Comment on above: Performed By: #### U RDS, ADDONUAPLUS #### [place] [address] [place] Eosinophils/100 WBC (Bld) 1.0 % Normal . [facility] Comment on above: Performed By: #### U RDS, ADDONUAPLUS #### [facility] [address] [place] [address] Erythrocyte distribution width (RBC) [Ratio] 12.2 % Normal 12.0-14.8 [facility] Comment on above: Performed By: #### U RDS, ADDONUAPLUS #### [facility] [address] [place] [address] Hematocrit (Bld) [Volume fraction] 44.3 % Normal 38.8-50.0 [facility] Comment on above: Performed By: #### U RDS, ADDONUAPLUS #### [address] Hemoglobin (Bld) [Mass/Vol] 15.1 g/dL Normal 13.0-17.0 [facility] Comment on above: Performed By: #### U RDS, ADDONUAPLUS #### [address] Lymphocytes (Bld) [#/Vol] 1.8 10*3/uL Normal 1.00-4.8 [facility] Comment on above: Performed By: #### U RDS, ADDONUAPLUS #### [address] Lymphocytes/100 WBC (Bld) 27.0 % Normal . [facility] Comment on above: Performed By: #### U RDS, ADDONUAPLUS #### [address] MCH (RBC) [Entitic mass] 32.0 pg Normal 27.5-35.2 [facility] Comment on above: Performed By: #### U RDS, ADDONUAPLUS #### [address] MCV (RBC) [Entitic vol] 93.9 fL Normal 83.5-101 [facility] Comment on above: Performed By: #### U RDS, ADDONUAPLUS #### [address] Mean Corpuscular HGB Conc 34.1 g/dL Normal 32.5-35.6 [facility] Comment on above: Performed By: #### U RDS, ADDONUAPLUS #### [address] Monocytes (Bld) [#/Vol] 0.4 10*3/uL Normal 0.0-0.8 [facility] Comment on above: Performed By: #### U RDS, ADDONUAPLUS #### [address] [place] [address] [place] Monocytes/100 WBC (Bld) 6.1 % Normal . [facility] Comment on above: Performed By: #### U RDS, ADDONUAPLUS #### [facility] [address] [place] [address] [place] Neutrophils (Bld) [#/Vol] 4.3 10*3/uL Normal 1.8-7.7 [facility] Comment on above: Performed By: #### U RDS, ADDONUAPLUS #### [place] [address] [place] Neutrophils/100 WBC (Bld) 65.0 % Normal . [facility] Comment on above: Performed By: #### U NICOLAS, ADDONUAPLUS #### [place] [address] [place] Nucleated RBC/100 WBC (Bld) [Ratio] 0.0 % Normal 0-0.5 [facility] Comment on above: Performed By: #### U NICOLAS, ADDONUAPLUS #### [place] [address] [place] Platelet mean volume (Bld) [Entitic vol] 8.6 fL Normal 6.6-10.1 [facility] Comment on above: Performed By: #### U RDS, ADDONUAPLUS #### [facility] [address] [place], [place] [id number] [place] Platelets (Bld) [#/Vol] 203 10*3/uL Normal 150-450 [facility] Comment on above: Performed By: #### U RDS, ADDONUAPLUS #### [facility] [address] [place] [address] [place] RBC (Bld) [#/Vol] 4.72 10*6/uL Normal 3.90-5.60 [facility] Comment on above: Performed By: #### U RDS, ADDONUAPLUS #### [facility] [address] [place] [address] [place] WBC (Bld) [#/Vol] 6.5 10*3/uL Normal 4.5-11.0 [facility] Comment on above: Performed By: #### U RDS, ADDONUAPLUS #### [facility] [address] Creatinine and Glomerular fi ltration rate.predicted panel (S/P/Bld)Ordered By: Ladi Mina on 10-26-2022 Creatinine [Mass/Vol] 1.19 mg/dL 0.64-1.27 [facility] Dipstick and Microscopicon 1 12-26-2021 Appearance (U) Clear Normal Clear [facility] Comment on above: Order Comment: Name Collection Type:: Clean-Voided Midstream Performed By: #### U RDS, ADDONUAPLUS #### [facility] [address] [place] [address] Bacteria,Urine None Seen Normal None Seen [facility] Comment on above: Order Comment: Name Collection Type:: Clean-Voided Midstream Performed By: #### U RDS, ADDONUAPLUS #### [facility] [address] [place] [address] [place] Bilirubin,Urine Negative Normal Negative [facility] Comment on above: Order Comment: Name Collection Type:: Clean-Voided Midstream Performed By: #### U RDS, ADDONUAPLUS #### [facility] [address] [place] [address] Color (U) Yellow Normal Yellow [facility] Comment on above: Order Comment: Name Collection Type:: Clean-Voided Midstream Performed By: #### U RDS, ADDONUAPLUS #### [facility] [address] [place] [address] [place] Glucose Ql (U) 500 mg/dL High Normal [facility] Comment on above: Order Comment: Name Collection Type:: Clean-Voided Midstream Performed By: #### U RDS, ADDONUAPLUS #### [facility] [address] [place] [address] [place] Hyaline Casts,Urine 0-8 Normal 0-8 [facility] Comment on above: Order Comment: Name Collection Type:: Clean-Voided Midstream Result Comment: PERF ORMED BY: [place] [id number] PATHOLOGIST MICROFILM MOUNTER ANIL GUAMAN M.D. Performed By: #### U RDS, ADDONUAPLUS #### [address] Ketones Ql (U) Trace High Negative [facility] Comment on above: Order Comment: Name Collection Type:: Clean-Voided Midstream Performed By: #### U RDS, ADDONUAPLUS #### [address] Leukocyte esterase Test strip Ql (U) Negative Normal Negative [facility] Comment on above: Order Comment: Name Collection Type:: Clean-Voided Midstream Performed By: #### U RDS, ADDONUAPLUS #### [address] Nitrite,Urine Negative Normal Negative [facility] Comment on above: Order Comment: Name Collection Type:: Clean-Voided Midstream Performed By: #### U RDS, ADDONUAPLUS #### [address] Occult Blood,Urine Negative Normal Negative [facility] Comment on above: Order Comment: Name Collection Type:: Clean-Voided Midstream Result Comment: PERF ORMED BY: [place] [address] PATHOLOGIST MICROFILM MOUNTER ANIL GUAMAN M.D. Performed By: #### U RDS, ADDONUAPLUS #### [facility] [address] [place] [address] [place] pH (U) 7.0 [pH] Normal 5.0-9.0 [facility] Comment on above: Order Comment: Name Collection Type:: Clean-Voided Midstream Performed By: #### U RDS, ADDONUAPLUS #### [place] [address] [place] Protein,Urine Trace High Negative [facility] Comment on above: Order Comment: Name Collection Type:: Clean-Voided Midstream Performed By: #### U RDS, ADDONUAPLUS #### [address] [place] [address] [place] RBC LM.HPF (Urine sed) [#/Area] 0 /[HPF] Normal 0-4 [facility] Comment on above: Order Comment: Name Collection Type:: Clean-Voided Midstream Performed By: #### U RDS, ADDONUAPLUS #### [address] Specificy [place],Urine 1.027 Normal 1.001-1.030 [facility] Comment on above: Order Comment: Name Collection Type:: Clean-Voided Midstream Performed By: #### U RDS, ADDONUAPLUS #### [address] Squamous Epithelial Cell,Urine 0-1 Normal 0-2 [facility] Comment on above: Order Comment: Name Collection Type:: Clean-Voided Midstream Performed By: #### U RDS, ADDONUAPLUS #### [address] Urobilinogen,Urine Normal Normal Normal [facility] Comment on above: Order Comment: Name Collection Type:: Clean-Voided Midstream Performed By: #### U RDS, ADDONUAPLUS #### [address] WBC,Urine 1-2 Normal 0-4 [facility] Comment on above: Order Comment: Name Collection Type:: Clean-Voided Midstream Performed By: #### U RDS, ADDONUAPLUS #### [address] Direct bilirubin measurement Ordered By: Ladi Mina on 10-26-2022 Bilirubin.direct [Mass/Vol] 0.2 mg/dL 0.0-0.4 [facility] Drug Screen,Urineon 10-26-20 Amphetamine Screen,Urine Negative Normal Negative [facility] Comment on above: Performed By: #### U RDS, ADDONUAPLUS #### [address] Barbiturate Screen,Urine Negative Normal Negative [facility] Comment on above: Performed By: #### U RDS, ADDONUAPLUS #### [facility] [address] [place] [address] [place] Benzodiazepines Screen,Urine Negative Normal Negative [facility] Comment on above: Performed By: #### U RDS, ADDONUAPLUS #### [facility] [address] [place] [address] Cannabinoid Screen,Urine Negative Normal Negative [facility] Comment on above: Result Comment: Thes e are unconfirmed results and should not be used for legal purposes. Drug Cut-Off Concentration: AMPH 1000 ng/mL CHRISTINA 200 ng/mL CHRISTIANO 200 ng/mL COCM 300 ng/mL OP 300 ng/mL PCP 25 ng/mL THC 20 ng/mL PERFORMED BY: [place] [address] PATHOLOGIST MICROFILM MOUNTER ANIL GUAMAN M.D. Performed By: #### U RDS, ADDONUAPLUS #### [place] [address] [place] Cocaine Screen,Urine Negative Normal Negative [facility] Comment on above: Performed By: #### U RDS, ADDONUAPLUS #### [facility] [address] [place] [address] [place] Opiate Screen,Urine Negative Normal Negative [facility] Comment on above: Performed By: #### U RDS, ADDONUAPLUS #### [address] Phencyclidine Screen,Urine Negative Normal Negative [facility] Comment on above: Performed By: #### U RDS, ADDONUAPLUS #### [facility] [address] [place] [address] [place] ECG 12 lead ECGon 10-26-2022 [address] [facility] [place] [address] [place] [address] Electrocardiograph Report Signed 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 MR#: [id number] : 1970 Acct:[id number] Age/Sex: 52 / M ADM Date: 10/26/22 Loc: ER Room: Type: [facility] ER Attending Dr: Ordering Provider: NOMI Lopez [...] sinus rhythm Confirmed by Dave HENDRICKS DO ([id number]) on 10/26/2022 12:15:39 PM Referred By: Electronically Signed By:Dave HENDRICKS DO Transcribed By: MUS Signed By Dave Hendricks DO 1 12/26/21 1215 Normal [facility] Eosinophils Auto (Bld) [#/Vo l]Ordered By: Ladi Mina on 10-26-2022 Eosinophils (Bld) [#/Vol] 0.1 10*3/uL 0.0-0.45 [facility] Eosinophils/100 WBC Auto (Bl d)Ordered By: Ladi Mina on 10-26-2022 Eosinophils/100 WBC (Bld) 1.0 % . [facility] Erythrocyte distribution wid th Auto (RBC) [Ratio]Ordered By: Ladi Mina on 10-26-2022 Erythrocyte distribution width (RBC) [Ratio] 12.2 % 12.0-14.8 [facility] Estimated glomerular filtrat ion rate (GFR) non- AmericanOrdered By: Ladi Mina on 10-26-2022 GFR/1.73 sq M.predicted among non-blacks MDRD (S/P/Bld) [Vol rate/Area] > 60 mL/Min [facility] Ethyl Alcohol Profileon 09-29 Ethanol [Mass/Vol] mg/dL Normal [facility] Comment on above: Performed By: #### U NICOLAS, ADDBLAIRUASHELLEY #### [address] Percent Ethanol Not performed Normal [facility] Comment on above: Result Comment: PERF ORMED BY: [place] [address] PATHOLOGIST MICROFILM MOUNTER ANIL GUAMAN M.D. Performed By: #### U NICOLAS, ADDONUAPLUS #### [facility] [address] [place] [address] Globulin Calc (S) [Mass/Vol] Ordered By: Ladi Bullimore on 10-26-2022 Globulin (S) [Mass/Vol] 3.3 g/dL [facility] Hematocrit Auto (Bld) [Volum e fraction]Ordered By: Ladi Bullimore on 10-26-2022 Hematocrit (Bld) [Volume fraction] 44.3 % 38.8-50.0 [facility] Hemoglobin [Mass/volume] in BloodOrdered By: Ladi Bullimore on 10-26-2022 Hemoglobin (Bld) [Mass/Vol] 15.1 g/dL 13.0-17.0 [facility] Hepatic Panelon 10-26-2022 Albumin [Mass/Vol] 3.9 g/dL Normal 3.2-5.5 [facility] Comment on above: Performed By: #### U NICOLAS, ADDONUAPLUS #### [facility] [address] [place] [address] Albumin/Globulin [Mass ratio] 1.2 {ratio} Normal [facility] Comment on above: Performed By: #### U RDS, ADDONUAPLUS #### [facility] [address] [place] [address] ALP [Catalytic activity/Vol] 67 U/L Normal 32-92 [facility] Comment on above: Performed By: #### U RDS, ADDONUAPLUS #### [facility] [address] [place] [address] [place] ALT [Catalytic activity/Vol] 20 U/L Normal 10-60 [facility] Comment on above: Performed By: #### U RDS, ADDONUAPLUS #### [address] AST [Catalytic activity/Vol] 20 U/L Normal 10-42 [facility] Comment on above: Performed By: #### U RDS, ADDONUAPLUS #### [facility] [address] [place] [address] [place] Bilirubin [Mass/Vol] 1.2 mg/dL Normal 0.3-1.2 [facility] Comment on above: Performed By: #### U RDS, ADDONUAPLUS #### [facility] [address] Bilirubin,Indirect 1.0 mg/dL Normal [facility] Comment on above: Performed By: #### U RDS, ADDONUAPLUS #### [facility] [address] Bilirubin.indirect [Mass/Vol] 0.2 mg/dL Normal 0.0-0.4 [facility] Comment on above: Performed By: #### U NICOLAS, ADDONUAPLUS #### [facility] [address] Globulin (S) [Mass/Vol] 3.3 g/dL Normal [facility] Comment on above: Performed By: #### U NICOLAS, ADDONUAPLUS #### [facility] [address] Protein [Mass/Vol] 7.2 g/dL Normal 6.1-7.9 [facility] Comment on above: Performed By: #### U NICOLAS, ADDONUAPLUS #### [address] Ketones Auto test strip (U) [Mass/Vol]Ordered By: Ladi Mina on 10-26-2022 Ketones (U) [Mass/Vol] Trace Negative [facility] - Chemistry and C hemistry - challengeOrdered By: Ladi Mina on 10-26-2022 Lipase [Catalytic activity/Vol] 39.0 U/L -51 [facility] - Drug toxicology Ordered By: Ladi Mina on 10-26-2022 Opiates Ql (U) Negative Negative [facility] - Hematology and Cell countsOrdered By: Ladi Mina on 10-26-2022 Nucleated RBC/100 WBC (Bld) [Ratio] 0.0 % 0-0.5 [facility] - UrinalysisOrder ed By: Ladi Mina on 10-26-2022 Hyaline casts LM Ql (Urine sed) 0-8 [LPF] 0-8 [facility] Leukocytes [#/volume] in Blo od by Automated countOrdered By: Ladi Bullimore on 10-26-2022 WBC (Bld) [#/Vol] 6.5 10*3/uL 4.5-11.0 [facility] Lipaseon 10-26-2022 Lipase [Catalytic activity/Vol] 39.0 U/L Normal 22-51 [facility] Comment on above: Result Comment: PERF ORMED BY: [place] [address] PATHOLOGIST MICROFILM MOUNTER ANIL GUAMAN M.D. Performed By: #### U RDS, ADDONUAPLUS #### [address] Lymphocytes Auto (Bld) [#/Vo l]Ordered By: Ladi Bullimore on 10-26-2022 Lymphocytes (Bld) [#/Vol] 1.8 10*3/uL 1.00-4.8 [facility] Lymphocytes/100 WBC Auto (Bl d)Ordered By: Ladi Bullimore on 10-26-2022 Lymphocytes/100 WBC (Bld) 27.0 % . [facility] MCH Auto (RBC) [Entitic mass ]Ordered By: Ladi Bullimore on 10-26-2022 MCH (RBC) [Entitic mass] 32.0 pg 27.5-35.2 [facility] MCHC Auto (RBC) [Mass/Vol]Or dered By: Ladi Bullimore on 10-26-2022 MCHC (RBC) [Mass/Vol] 34.1 g/dL 32.5-35.6 [facility] MCV Auto (RBC) [Entitic vol] Ordered By: Ladi Bullimore on 10-26-2022 MCV (RBC) [Entitic vol] 93.9 fL 83.5-101 [facility] Monocytes Auto (Bld) [#/Vol] Ordered By: Ladi Bullimore on 10-26-2022 Monocytes (Bld) [#/Vol] 0.4 10*3/uL 0.0-0.8 [facility] Monocytes/100 WBC Auto (Bld) Ordered By: Ladi Villatoroimore on 10-26-2022 Monocytes/100 WBC (Bld) 6.1 % . [facility] Neutrophils Auto (Bld) [#/Vo l]Ordered By: Ladi Bullimore on 10-26-2022 Neutrophils (Bld) [#/Vol] 4.3 10*3/uL 1.8-7.7 [facility] Neutrophils/100 WBC Auto (Bl d)Ordered By: Ladi Bullimore on 10-26-2022 Neutrophils/100 WBC (Bld) 65.0 % . [facility] Nitrite Test strip Ql (U)Ord ered By: Ladi Mina on 10-26-2022 Nitrite Ql (U) Negative Negative [facility] No Panel InformationOrdered By: [facility] on 10-26-2022 Estimated GFR () > 60 mL/Min [facility] Comment on above: GFR estimated refere nce range: According to KDOQI guidelines, <60 ml/min/1.73m2 is sufficient to diagnose a patient with chronic kidney disease. Pharmacy Creatinine Clearance (Chem 76.46 [facility] Phencyclidine Screen Ql (U)O rdered By: Ladi Mina on 10-26-2022 Phencyclidine Ql (U) Negative Negative [facility] Platelet mean volume Auto (B ld) [Entitic vol]Ordered By: Ladi Villatoroimore on 10-26-2022 Platelet mean volume (Bld) [Entitic vol] 8.6 fL 6.6-10.1 [facility] Platelets Auto (Bld) [#/Vol] Ordered By: Ladisujey Villatoroimore on 10-26-2022 Platelets (Bld) [#/Vol] 203 10*3/uL 150-450 [facility] Protein Auto test strip (U) [Mass/Vol]Ordered By: Ladisujey Johnsore on 10-26-2022 Protein (U) [Mass/Vol] Trace mg/dL Negative [facility] Protein [Mass/volume] in Ser um or PlasmaOrdered By: Ladi Bullimore on 10-26-2022 Protein [Mass/Vol] 7.2 g/dL 6.1-7.9 [facility] RBC Auto (Bld) [#/Vol]Ordere d By: Ladi Villatoropatriciamargie on 10-26-2022 RBC (Bld) [#/Vol] 4.72 10*6/uL 3.90-5.60 [facility] Serum or plasma alanine humphrey otransferase measurement without P-5'-P (enzymatic activiOrdered By: Ladi Mina on 10-26-2022 ALT No additional P-5'-P [Catalytic activity/Vol] 20 U/L 10-60 [facility] Serum or plasma albumin/glob ulin mass ratioOrdered By: Ladi Mina on 10-26-2022 Albumin/Globulin [Mass ratio] 1.2 {ratio} [facility] Serum or plasma alkaline suzi sphatase measurement (enzymatic activity/volume)Ordered By: Ladi Mina on 10-26-2022 ALP [Catalytic activity/Vol] 67 U/L 32-92 [facility] Serum or plasma anion gap de terminationOrdered By: Ladi Mina on 10-26-2022 Anion gap [Moles/Vol] 14.8 mmol/L 6.0-15.0 [facility] Serum or plasma aspartate am inotransferase measurement (enzymatic activity/volume)Ordered By: Ladi Mina on 10-26-2022 AST [Catalytic activity/Vol] 20 U/L 10-42 [facility] Serum or plasma calcium travis urement (mass/volume)Ordered By: Ladi Mina on 10-26-2022 Calcium [Mass/Vol] 9.0 mg/dL 8.2-10.2 [facility] Serum or plasma chloride hollie surement (moles/volume)Ordered By: Ladi Mina on 10-26-2022 Chloride [Moles/Vol] 98 mmol/L 95-114 [facility] Serum or plasma ethanol travis urement (mass/volume)Ordered By: Ladi Mina on 10-26-2022 Ethanol [Mass/Vol] mg/dL [facility] Ethanol [Mass/Vol] TNP [facility] Comment on above: Test not performed Serum or plasma glucose travis urement (mass/volume)Ordered By: [facility] on 10-26-2022 Glucose [Mass/Vol] 284 mg/dL 70-100 [facility] Comment on above: ADA recommended refe rence rangeRandom Glucose Reference Range is dependent on time and content of last meal. Glucose of more than 200 mg/dL in a nonstressed, ambulatory subject supports the diagnosis of Diabetes Mellitus. Serum or plasma non-glucuron idated bilirubin measurement (mass/volume)Ordered By: Ladi Mina on 10-26-2022 Bilirubin.indirect [Mass/Vol] 1.0 mg/dL [facility] Serum or plasma potassium me asurement (moles/volume)Ordered By: [facility] on 10-26-2022 Potassium [Moles/Vol] 4.0 mmol/L 3.5-5.1 [facility] Serum or plasma sodium measu rement (moles/volume)Ordered By: [facility] on 10-26-2022 Sodium [Moles/Vol] 138 mmol/L 136-146 [facility] Serum or plasma total biliru bin measurement (mass/volume)Ordered By: Ladi Mina 10-26-2022 Bilirubin [Mass/Vol] 1.2 mg/dL 0.3-1.2 [facility] Serum or plasma total carbon dioxide measurement (moles/volume)Ordered By: Ladisujey [facility]om[facility]. [facility] on 10-26-2022 CO2 [Moles/Vol] 29.2 mmol/L 22.0-30.0 [facility] Serum or plasma urea nitroge n measurement (mass/volume)Ordered By: Ladi Mina on 10-26-2022 Urea nitrogen [Mass/Vol] 19 mg/dL 9-23 [facility] Specific gravity Auto test s trip (U) [Rel density]Ordered By: Ladisujey Mina on 10-26-2022 Specific gravity (U) [Rel density] 1.027 1.001-1.030 [facility] Squamous epithelial cells de tection in urine sediment by light microscopyOrdered By: Ladi Mina 10-26-2022 Epithelial cells.squamous LM Ql (Urine sed) 0-1 [HPF] 0-2 [facility] Urine bacteria detection by automated methodOrdered By: Ladi Mina on 10-26-2022 Bacteria Auto Ql (U) None seen None Seen [facility] Urine clarity by refractomet ry automatedOrdered By: Ladi Mina on 10-26-2022 Clarity Refractometry automated (U) Clear Clear [facility] Urine cocaine detectionOrder ed By: Ladi Mina on 10-26-2022 Cocaine Ql (U) Negative Negative [facility] Urine glucose measurement by automated test strip (mass/volume)Ordered By: Ladi Mina on 10-26-2022 Glucose Auto test strip (U) [Mass/Vol] 500 mg/dL Normal [facility] Urine hemoglobin detection b y automated test stripOrdered By: Ladi Mina on 10-26-2022 Hemoglobin Auto test strip Ql (U) Negative Negative [facility] Urine leukocyte esterase det ection by automated test stripOrdered By: Ladi Mina on 10-26-2022 Leukocyte esterase Auto test strip Ql (U) Negative Negative [facility] Urobilinogen Auto test strip (U) [Mass/Vol]Ordered By: Ladi Mina on 10-26-2022 Urobilinogen (U) [Mass/Vol] Normal mg/dL Normal [facility] pH Auto test strip (U)Ordere d By: Ladi Mina on 10-26-2022 pH (U) 7.0 [pH] 5.0-9.0 [facility] Glucose Glucometer (BldC) [M ass/Vol]Ordered By: Grayson Duvall on 10-13-2022 Glucose [Mass/Vol] 271 mg/dL [facility] Comment on above: Random Glucose Refer ence Range is dependent on time and content of last meal. Glucose of more than 200 mg/dL in a nonstressed, ambulatory subject supports the diagnosis of Diabetes Mellitus. Glucose Poct Glucometerson 1 12-13-2021 Commemt1 Glu2: Cleaned Meter Normal [facility] Comment on above: Result Comment: PERF ORMED BY: [facility] [address] [place] [address] PATHOLOGIST MICROFILM MOUNTER ANIL GUAMAN M.D. Performed By: #### C MP, TSH3, LIPID #### [facility] [address] [place] [address] [place] Glucose [Mass/Vol] 271 mg/dL Normal [facility] Comment on above: Result Comment: [place] Glucose Reference Range is dependent on time and content of last meal. Glucose of more than 200 mg/dL in a nonstressed, ambulatory subject supports the diagnosis of Diabetes Mellitus. Performed By: #### C MP, TSH3, LIPID #### [facility] [address] No Panel InformationOrdered By: Grayson Duvall on 10-13-2022 Bedside Glucose Comment Glu2: cleaned meter [facility] [facility] Album[facility] [Mass/volume] in Ser um or PlasmaOrdered By: Boy Frost on 10-11-2022 Albumin [Mass/Vol] 3.8 g/dL 3.2-5.5 [facility] Basophils Auto (Bld) [#/Vol] Ordered By: Boy Frost on 10-11-2022 Basophils (Bld) [#/Vol] 0.0 10*3/uL 0.0-0.2 [facility] Basophils/100 WBC Auto (Bld) Ordered By: Boy Frost on 10-11-2022 Basophils/100 WBC (Bld) 0.7 % . [facility] COVID CepheidOrdered By: Raymundo Thayer on 10-11-2022 SARS-CoV-2 (COVID-19) Ab IA Ql Negative Negative [facility] Comment on above: This is a duplicate CepAppChinaid Xpert Xpress CoV-2/Flu/RSV Plus RNA by RT-PCR result to be used for statistical tracking purpose only. SARS-CoV-2 (COVID-19) RNA SILVIA+probe Ql (Unsp spec) [facility] SARS-CoV-2 (COVID-19) RNA SILVIA+probe Ql (Unsp spec) [facility] COVID-19 / Flu A/B / RSV PCR on 10-11-2022 SARS-CoV-2 (COVID-19) RNA SILVIA+probe Ql (Unsp spec) COVID-19 Cepheid Result Negative for SARS-CoV-2 RNA by RT-PCR Flu A Cepheid Result Negative for Flu A RNA by RT-PCR Flu B Cepheid Result Negative for Flu B RNA by RT-PCR RSV Cepheid Result Negative for RSV RNA by RT-PCR COVID19 Blank Space -- Reference: Negative COVID19 Blank Space -- Cepheid Disclaimer The Cepheid Xpert Xpress CoV-2/Flu/RSV [...] or Cepheid Disclaimer revoked sooner. PERFORMED BY: [facility] [place] [address] PATHOLOGIST MICROFILM MOUNTER ANIL GUAMAN M.D. [facility] Comment on above: Performed By: #### V BG #### Point of Care testing , Cepheid COVID PCR Negativeon 10-11-2022 SARS-CoV-2 (COVID-19) RNA SILVIA+probe Ql (Unsp spec) Negative Normal Negative [facility] Comment on above: Result Comment: This is a duplicate CepAppChinaid Xpert Xpress CoV-2/Flu/RSV Plus RNA by RT-PCR result to be used for statistical tracking purpose only. PERFORMED BY: [facility] [address] [place] [address] PATHOLOGIST MICROFILM MOUNTER ANIL GUAMAN M.D. Performed By: #### V BG #### Point of Care testing , Complete Blood Count Auto Di ffon 10-11-2022 Basophils (Bld) [#/Vol] 0.0 10*3/uL Normal 0.0-0.2 [facility] Comment on above: Result Comment: PERF ORMED BY: [facility] [address] [place] [address] PATHOLOGIST MICROFILM MOUNTER ANIL GUAMAN M.D. Performed By: #### C MP, TSH3, LIPID #### [address] Basophils/100 WBC (Bld) 0.7 % Normal . [facility] Comment on above: Performed By: #### C MP, TSH3, LIPID #### [address] Eosinophils (Bld) [#/Vol] 0.1 10*3/uL Normal 0.0-0.45 [facility] Comment on above: Performed By: #### C MP, TSH3, LIPID #### [place] [address] [place] Eosinophils/100 WBC (Bld) 0.9 % Normal . [facility] Comment on above: Performed By: #### C MP, TSH3, LIPID #### [address] Erythrocyte distribution width (RBC) [Ratio] 13.0 % Normal 12.0-14.8 [facility] Comment on above: Performed By: #### C MP, TSH3, LIPID #### [address] Hematocrit (Bld) [Volume fraction] 45.6 % Normal 38.8-50.0 [facility] Comment on above: Performed By: #### C MP, TSH3, LIPID #### [address] Hemoglobin (Bld) [Mass/Vol] 15.8 g/dL Normal 13.0-17.0 [facility] Comment on above: Performed By: #### C MP, TSH3, LIPID #### [address] Lymphocytes (Bld) [#/Vol] 1.7 10*3/uL Normal 1.00-4.8 [facility] Comment on above: Performed By: #### C MP, TSH3, LIPID #### [address] Lymphocytes/100 WBC (Bld) 24.7 % Normal . [facility] Comment on above: Performed By: #### C MP, TSH3, LIPID #### [address] MCH (RBC) [Entitic mass] 32.2 pg Normal 27.5-35.2 [facility] Comment on above: Performed By: #### C MP, TSH3, LIPID #### [address] MCV (RBC) [Entitic vol] 93.0 fL Normal 83.5-101 [facility] Comment on above: Performed By: #### C MP, TSH3, LIPID #### [address] Mean Corpuscular HGB Conc 34.7 g/dL Normal 32.5-35.6 [facility] Comment on above: Performed By: #### C MP, TSH3, LIPID #### [address] Monocytes (Bld) [#/Vol] 0.5 10*3/uL Normal 0.0-0.8 [facility] Comment on above: Performed By: #### C MP, TSH3, LIPID #### [facility] [address] [place] [address] [place] Monocytes/100 WBC (Bld) 6.5 % Normal . [facility] Comment on above: Performed By: #### C MP, TSH3, LIPID #### [facility] [address] [place] [address] [place] Neutrophils (Bld) [#/Vol] 4.7 10*3/uL Normal 1.8-7.7 [facility] Comment on above: Performed By: #### C MP, TSH3, LIPID #### [facility] [address] [place] [address] [place] Neutrophils/100 WBC (Bld) 67.2 % Normal . [facility] Comment on above: Performed By: #### C MP, TSH3, LIPID #### [facility] [address] [place] [address] [place] Nucleated RBC/100 WBC (Bld) [Ratio] 0.0 % Normal 0-0.5 [facility] Comment on above: Performed By: #### C MP, TSH3, LIPID #### [facility] [address] [place] [address] [place] Platelet mean volume (Bld) [Entitic vol] 8.7 fL Normal 6.6-10.1 [facility] Comment on above: Performed By: #### C MP, TSH3, LIPID #### [facility] [address] [place] [address] [place] Platelets (Bld) [#/Vol] 209 10*3/uL Normal 150-450 [facility] Comment on above: Performed By: #### C MP, TSH3, LIPID #### [facility] [address] [place] [address] [place] RBC (Bld) [#/Vol] 4.90 10*6/uL Normal 3.90-5.60 [facility] Comment on above: Performed By: #### C MP, TSH3, LIPID #### [facility] [address] [place] [address] [place] WBC (Bld) [#/Vol] 7.0 10*3/uL Normal 4.5-11.0 [facility] Comment on above: Performed By: #### C MP, TSH3, LIPID #### [facility] [address] [place] [address] Comprehensive Metabolic Pane rudolph 10-11-2022 Albumin [Mass/Vol] 3.8 g/dL Normal 3.2-5.5 [facility] Comment on above: Performed By: #### C MP, TSH3, LIPID #### [address] Albumin/Globulin [Mass ratio] 1.1 {ratio} Normal [facility] Comment on above: Performed By: #### C MP, TSH3, LIPID #### [address] ALP [Catalytic activity/Vol] 69 U/L Normal 32-92 [facility] Comment on above: Performed By: #### C MP, TSH3, LIPID #### [address] ALT [Catalytic activity/Vol] 23 U/L Normal 10-60 [facility] Comment on above: Performed By: #### C MP, TSH3, LIPID #### [address] Anion gap [Moles/Vol] 10.6 mmol/L Normal 6.0-15.0 [facility] Comment on above: Performed By: #### C MP, TSH3, LIPID #### [facility] [address] [place] [address] AST [Catalytic activity/Vol] 20 U/L Normal 10-42 [facility] Comment on above: Performed By: #### C MP, TSH3, LIPID #### [address] Bilirubin [Mass/Vol] 1.0 mg/dL Normal 0.3-1.2 [facility] Comment on above: Performed By: #### C MP, TSH3, LIPID #### [facility] [address] [place] [address] [place] Calcium [Mass/Vol] 9.5 mg/dL Normal 8.2-10.2 [facility] Comment on above: Performed By: #### C MP, TSH3, LIPID #### [facility] [address] Chloride [Moles/Vol] 102 mmol/L Normal 95-114 [facility] Comment on above: Performed By: #### C MP, TSH3, LIPID #### [facility] [address] CO2 [Moles/Vol] 27.5 mmol/L Normal 22.0-30.0 [facility] Comment on above: Performed By: #### C MP, TSH3, LIPID #### [facility] [address] Creatinine [Mass/Vol] 0.94 mg/dL Normal 0.64-1.27 [facility] Comment on above: Performed By: #### C MP, TSH3, LIPID #### [facility] [address] [place] [address] [place] Creatinine Clr Calc Pharmacy 96.80 [facility] Comment on above: Performed By: #### C MP, TSH3, LIPID #### [facility] [address] Estimated GFR ( [place] > 60 [facility] Comment on above: Result Comment: GFR estimated reference range: According to KDOQI guidelines, <60 ml/min/1.73m2 is sufficient to diagnose a patient with chronic kidney disease. Performed By: #### C MP, TSH3, LIPID #### [facility] [address] [place] [address] [place] Estimated GFR (Non- Am > 60 [facility] Comment on above: Performed By: #### C MP, TSH3, LIPID #### [facility] [address] [place] [address] [place] Globulin (S) [Mass/Vol] 3.5 g/dL [facility] Comment on above: Performed By: #### C MP, TSH3, LIPID #### [facility] [address] [place] [address] [place] Glucose [Mass/Vol] 283 mg/dL High 70-100 [facility] Comment on above: Result Comment: [facility] Glucose Reference Range is dependent on time and content of last meal. Glucose of more than 200 mg/dL in a nonstressed, ambulatory subject supports the diagnosis of Diabetes Mellitus. ADA recommended reference range Performed By: #### C MP, TSH3, LIPID #### [facility] [address] Potassium [Moles/Vol] 4.1 mmol/L Normal 3.5-5.1 [facility] Comment on above: Performed By: #### C MP TSH3, LIPID #### [facility] [address] Protein [Mass/Vol] 7.3 g/dL Normal 6.1-7.9 [facility] Comment on above: Performed By: #### C MP, TSH3, LIPID #### [address] Sodium [Moles/Vol] 136 mmol/L Normal 136-146 [facility] Comment on above: Performed By: #### C MP, TSH3, LIPID #### [facility] [address] [place] [address] [place] Urea nitrogen [Mass/Vol] 27 mg/dL High 9-23 [facility] Comment on above: Performed By: #### C MP, TSH3, LIPID #### [facility] [address] [place] [address] [place] Creatinine and Glomerular fi ltration rate.predicted panel (S/P/Bld)Ordered By: Boy Frost on 10-11-2022 Creatinine [Mass/Vol] 0.94 mg/dL 0.64-1.27 [facility] Eosinophils Auto (Bld) [#/Vo l]Ordered By: Boy Frost on 10-11-2022 Eosinophils (Bld) [#/Vol] 0.1 10*3/uL 0.0-0.45 [facility] Eosinophils/100 WBC Auto (Bl d)Ordered By: Boy Frost on 10-11-2022 Eosinophils/100 WBC (Bld) 0.9 % . [facility] Erythrocyte distribution wid th Auto (RBC) [Ratio]Ordered By: Boy Frost on 10-11-2022 Erythrocyte distribution width (RBC) [Ratio] 13.0 % 12.0-14.8 [facility] Estimated glomerular filtrat ion rate (GFR) non- AmericanOrdered By: Boy Frost on 10-11-2022 GFR/1.73 sq M.predicted among non-blacks MDRD (S/P/Bld) [Vol rate/Area] > 60 mL/Min [facility] Globulin Calc (S) [Mass/Vol] Ordered By: Boy Frost on 10-11-2022 Globulin (S) [Mass/Vol] 3.5 g/dL [facility] Hematocrit Auto (Bld) [Volum e fraction]Ordered By: Boy Frost on 10-11-2022 Hematocrit (Bld) [Volume fraction] 45.6 % 38.8-50.0 [facility] Hemoglobin [Mass/volume] in BloodOrdered By: Boy Frost on 10-11-2022 Hemoglobin (Bld) [Mass/Vol] 15.8 g/dL 13.0-17.0 [facility] Laboratory - Chemistry and C hemistry - challengeOrdered By: Boy Frost on 10-11-2022 Lipase [Catalytic activity/Vol] 46.0 U/L 22- [facility] - Hematology and Cell countsOrdered By: Boy Frost on 10-11-2022 Nucleated RBC/100 WBC (Bld) [Ratio] 0.0 % 0-0.5 [facility] Leukocytes [#/volume] in Blo od by Automated countOrdered By: Boy Frost on 10-11-2022 WBC (Bld) [#/Vol] 7.0 10*3/uL 4.5-11.0 [facility] Lipaseon 10-11-2022 Lipase [Catalytic activity/Vol] 46.0 U/L Normal 22-51 [facility] Comment on above: Result Comment: PERF ORMED BY: [place] [address] PATHOLOGIST MICROFILM MOUNTER ANIL GUAMAN M.D. Performed By: #### C MP, TSH3, LIPID #### [address] Lymphocytes Auto (Bld) [#/Vo l]Ordered By: Boy Frost on 10-11-2022 Lymphocytes (Bld) [#/Vol] 1.7 10*3/uL 1.00-4.8 [facility] Lymphocytes/100 WBC Auto (Bl d)Ordered By: Boy Frost on 10-11-2022 Lymphocytes/100 WBC (Bld) 24.7 % . [facility] MCH Auto (RBC) [Entitic mass ]Ordered By: Boy Frost on 10-11-2022 MCH (RBC) [Entitic mass] 32.2 pg 27.5-35.2 [facility] MCHC Auto (RBC) [Mass/Vol]Or dered By: Boy Frost on 10-11-2022 MCHC (RBC) [Mass/Vol] 34.7 g/dL 32.5-35.6 [facility] MCV Auto (RBC) [Entitic vol] Ordered By: Boy Frost on 10-11-2022 MCV (RBC) [Entitic vol] 93.0 fL 83.5-101 [facility] Monocytes Auto (Bld) [#/Vol] Ordered By: Boy Frost on 10-11-2022 Monocytes (Bld) [#/Vol] 0.5 10*3/uL 0.0-0.8 [facility] Monocytes/100 WBC Auto (Bld) Ordered By: Boy Frost on 10-11-2022 Monocytes/100 WBC (Bld) 6.5 % . [facility] Neutrophils Auto (Bld) [#/Vo l]Ordered By: Boy Frost on 10-11-2022 Neutrophils (Bld) [#/Vol] 4.7 10*3/uL 1.8-7.7 [facility] Neutrophils/100 WBC Auto (Bl d)Ordered By: Boy Frost on 10-11-2022 Neutrophils/100 WBC (Bld) 67.2 % . [facility] No Panel InformationOrdered By: Boy Frost on 10-11-2022 Estimated GFR () > 60 mL/Min [facility] Comment on above: GFR estimated refere nce range: According to KDOQI guidelines, <60 ml/min/1.73m2 is sufficient to diagnose a patient with chronic kidney disease. Pharmacy Creatinine Clearance (Chem 96.80 [facility] Platelet mean volume Auto (B ld) [Entitic vol]Ordered By: Boy Frost on 10-11-2022 Platelet mean volume (Bld) [Entitic vol] 8.7 fL 6.6-10.1 [facility] Platelets Auto (Bld) [#/Vol] Ordered By: Boy Frost on 10-11-2022 Platelets (Bld) [#/Vol] 209 10*3/uL 150-450 [facility] Protein [Mass/volume] in Ser um or PlasmaOrdered By: Boy Frost on 10-11-2022 Protein [Mass/Vol] 7.3 g/dL 6.1-7.9 [facility] RBC Auto (Bld) [#/Vol]Ordere d By: Boy Frost on 10-11-2022 RBC (Bld) [#/Vol] 4.90 10*6/uL 3.90-5.60 [facility] Serum or plasma alanine humphrey otransferase measurement without P-5'-P (enzymatic activiOrdered By: Boy Frost on 10-11-2022 ALT No additional P-5'-P [Catalytic activity/Vol] 23 U/L 10-60 [facility] Serum or plasma albumin/glob ulin mass ratioOrdered By: Boy Frost on 10-11-2022 Albumin/Globulin [Mass ratio] 1.1 {ratio} [facility] Serum or plasma alkaline suzi sphatase measurement (enzymatic activity/volume)Ordered By: Boy Frost on 10-11-2022 ALP [Catalytic activity/Vol] 69 U/L 32-92 [facility] Serum or plasma anion gap de terminationOrdered By: Boy Frost on 10-11-2022 Anion gap [Moles/Vol] 10.6 mmol/L 6.0-15.0 [facility] Serum or plasma aspartate am inotransferase measurement (enzymatic activity/volume)Ordered By: Boy Frost on 10-11-2022 AST [Catalytic activity/Vol] 20 U/L 10-42 [facility] Serum or plasma calcium travis urement (mass/volume)Ordered By: Boy Frost on 10-11-2022 Calcium [Mass/Vol] 9.5 mg/dL 8.2-10.2 [facility] Serum or plasma chloride hollie surement (moles/volume)Ordered By: Boy Frost on 10-11-2022 Chloride [Moles/Vol] 102 mmol/L 95-114 [facility] Serum or plasma glucose travis urement (mass/volume)Ordered By: Boy Frost on 10-11-2022 Glucose [Mass/Vol] 283 mg/dL 70-100 [facility] Comment on above: ADA recommended refe rence rangeRandom Glucose Reference Range is dependent on time and content of last meal. Glucose of more than 200 mg/dL in a nonstressed, ambulatory subject supports the diagnosis of Diabetes Mellitus. Serum or plasma potassium me asurement (moles/volume)Ordered By: Boy Frost on 10-11-2022 Potassium [Moles/Vol] 4.1 mmol/L 3.5-5.1 [facility] Serum or plasma sodium measu rement (moles/volume)Ordered By: Boy Frost on 10-11-2022 Sodium [Moles/Vol] 136 mmol/L 136-146 [facility] Serum or plasma total biliru bin measurement (mass/volume)Ordered By: Boy Frost on 10-11-2022 Bilirubin [Mass/Vol] 1.0 mg/dL 0.3-1.2 [facility] Serum or plasma total carbon dioxide measurement (moles/volume)Ordered By: Boy Frost on 10-11-2022 CO2 [Moles/Vol] 27.5 mmol/L 22.0-30.0 [facility] Serum or plasma urea nitroge n measurement (mass/volume)Ordered By: Boy Frost on 10-11-2022 Urea nitrogen [Mass/Vol] 27 mg/dL 9-23 [facility] XR acute abdomen serieson XR acute abdomen series [facility] [place] [address] [place] [address] XRay Report Signed 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 MR#: [id number] : 1970 Acct:[id number] Age/Sex: 52 / M ADM Date: 10/11/22 Loc: ER Room: Type: [facility] ER Attending Dr: Copies to: Vimal Thayer MD Ordering Provider: Vimal Thayer MD Date [...] Tae Seals M.D.10/11/2022 1:45 PM Dictation Location: [place] [address] Transcribed By: [facility] 10/11/22 1345 Dictated By: Tae Seals II, MD 10/11/22 1349 Signed By: 10/11/22 134[address] [facility] CT ABDOMEN/PELVIS WITH CONTR Kellie 06-07-2019 Impression: 1. No ac leon CT abnormalities 2. Circumferential esophageal wall thickening; esophagitis vs neoplasm; recommend followup upper gi esophogram vs direct visualization. 3. Gastric fundal wall thickening; gastritis vs neoplasm as well and can be further evaluated with above mentioned upper GI. Electronically Signed By: Nadeem Mercado M.D. on Jun 07 2019 1:39:53:727AM [facility] User, Interfaces - 06/07/2019 1:41 AM EDT Patient Name: JUSTICE ARANDA Patient NRM: [id number] Patient : 1970 Examination:CT ABDOMEN/PELVIS WITH CONTRAST [...] Mercado M.D. on Jun 07 2019 1:39:53:727AM Tagwhat Patient Name: JUSTICE ARANDA Patient NRM: [id number] Patient : 1970 Examination:CT ABDOMEN/PELVIS WITH CONTRAST [...] fracture or dislocation. Superficial soft Tissues: Normal. [facility] PROTIME-INRon 06-07-2019 INR Coag (PPP) [Relative time] 1.1 {INR} [facility] Comment on above: INR: ------INDICATION INR Ref Range DVT, PE, AF, AMI, tissue heart valve 2.0 - 3.0 Mechanical prosthetic valves 2.5 - 3.5 PT Coag (PPP) [Time] 12.9 s [facility] XR ABDOMEN 1 VIEWon 06-07-20 19 User, Interfaces - 06/07/2019 12:40 AM EDT Patient Name: JUSTICE ARANDA Patient NRM: [id number] Patient : 1970 Examination:XR ABDOMEN 1 VIEW [...] Martínez MD on Jun 07 2019 12:40:30:390AM [facility] Impression: Nonspeci fic, nonobstructive bowel gas pattern with mild colonic stool burden. Electronically Signed By: Luis Carlos Martínez MD on Jun 07 2019 12:40:30:390AM [facility] Patient Name: JUSTICE ARANDA Patient NRM: [id number] Patient : 1970 Examination:XR ABDOMEN 1 VIEW [...] soft tissue calcifications. No acute bony abnormalities. [facility] AMYLASEon 06-06-2019 Amylase [Catalytic activity/Vol] 179 U/L High 25 - 125 U/L [facility] CBC, EDIF, PLATELETon 2018 Basophils/100 WBC (Bld) 0.6 % 0 - 3 % [facility] Eosinophils/100 WBC (Bld) 0.4 % 0 - 4 % [facility] Erythrocyte distribution width (RBC) [Ratio] 12.9 % 11.5 - 14.5 % [facility] Hematocrit (Bld) [Volume fraction] 37.8 % Low 42 - 52 % [facility] Hemoglobin (Bld) [Mass/Vol] 13.5 g/dL Low 14 - 18 g/dL [facility] Lymphocytes/100 WBC (Bld) 27.2 % 20.5 - 51.1 % [facility] MCH (RBC) [Entitic mass] 33.6 pg High 28 - 32 pg [facility] MCHC (RBC) [Mass/Vol] 35.6 g/dL 33 - 3 7 g/dL [facility] MCV (RBC) [Entitic vol] 94.5 fL High 80 - [address] [employer] Monocytes/100 WBC (Bld) 7.8 % 0 - 13 % [facility] Neutrophils/100 WBC (Bld) 64.0 % 42.2 - 75.2 % [facility] Platelets (Bld) [#/Vol] 150 10*3/uL [facility] RBC (Bld) [#/Vol] 4.00 10*6/uL Low [facility] SCAN SLIDE NO NO [facility] WBC (Bld) [#/Vol] 6.3 10*3/uL [facility] COMPREHENSIVE METABOLIC PROF BABS [place] 06-06-2019 Albumin BCG dye [Mass/Vol] 3.9 g/dL 3.5 - 5 g/dL [facility] Albumin/Globulin [Mass ratio] 1.3 {ratio} [facility] ALP [Catalytic activity/Vol] 49 U/L 38 - 126 U/L [facility] ALT No additional P-5'-P [Catalytic activity/Vol] 27 U/L 10 - 40 U/L [facility] Anion gap [Moles/Vol] 13.1 mmol/L [facility] AST [Catalytic activity/Vol] 24 U/L 10 - 42 U/L [facility] Bilirubin [Mass/Vol] 1.0 mg/dL 0.3 - 1 .2 mg/dL [facility] [employer] Calcium [Mass/Vol] 8.9 mg/dL 8.4 - 10. 2 mg/dL [facility] [employer] Chloride [Moles/Vol] 101 mmol/L [facility] [employer] CO2 [Moles/Vol] 27 mmol/L [facility] Creatinine [Mass/Vol] 1.0 mg/dL 0.4 - 1.1 mg/dL [facility] [employer] GFR/1.73 sq M.predicted MDRD (S/P/Bld) [Vol rate/Area] mL/min/{1.73_m2} [facility] Comment on above: Estimated Glomerular filtration Rate Reference Ranges: GFR, mL/min/1.73m2 >= 60 Adequate 30 - 59 Moderately decreased GFR 15 - 29 Severely decreased GFR <18 Kidney failure (or dialysis) GFR calculated using abbreviated MDRD formula. MDRD equation not suitable for patients who are under 18, have unstable creatinine concentrations Globulin (S) [Mass/Vol] 3.1 g/dL 2.9 - 3.3 g/dL [facility] [employer] Glucose [Mass/Vol] 253 mg/dL High 70 - 126 mg/dL [facility] [employer] Potassium [Moles/Vol] 4.1 mmol/L [facility] [employer] Protein [Mass/Vol] 7.0 g/dL 6.4 - 8.3 g/dL [facility] [employer] Sodium [Moles/Vol] 137 mmol/L [facility] [employer] Urea nitrogen [Mass/Vol] 33 mg/dL High 7 - 22 mg/dL [facility] [employer] LACTATE, BLOODon 06-06-2019 Lactate [Moles/Vol] 2.2 mmol/L 0.5 - 2. 2 mmol/L [facility] [employer] LIPASEon 06-06-2019 Lipase [Catalytic activity/Vol] 252 U/L High 22 - 51 U/L [facility] [employer] Otheron 06-06-2019 Interpretation and review of laboratory results Abnormal [facility] [employer] Interpretation and review of laboratory results Abnormal [facility] [employer] POCT GLUCOSEon 06-06-2019 Glucose [Mass/Vol] 220 mg/dL High 70 - 126 mg/dL [facility] [employer] Interpretation and review of laboratory results Abnormal [facility] [employer] U/A WITH MICROSCOPICon 06-06 Bacteria LM Ql (Urine sed) NONE SEEN NONE SEEN [facility] [employer] C & S INDICATED NO NO [facility] [employer] Casts LM.LPF (Urine sed) [#/Area] NONE SEEN NONE SEEN /lpf [facility] [employer] Epithelial cells.squamous LM.HPF (Urine sed) [#/Area] NONE SEEN NONE SEEN /hpf [facility] [employer] Mucus Ql (Urine sed) NONE SEEN NONE SEEN [facility] [employer] RBC LM.HPF (Urine sed) [#/Area] NONE SEEN NONE SEEN /hpf [facility] [employer] Unidentified crystals LM Ql (Urine sed) NONE SEEN NONE SEEN [facility] [employer] WBC LM.HPF (Urine sed) [#/Area] NONE SEEN [facility] [employer] URINALYSIS WITH REFLEX CULTU REon 06-06-2019 Appearance (U) CLEAR CLEAR [facility] [employer] BILIRUBIN, URINE DIPSTICK Negative NEGATIVE [facility] [employer] BLOOD, URINE DIPSTICK Negative NEGATIVE [facility] [employer] Color (U) YELLOW YELLOW [facility] [employer] GLUCOSE, URINE DIPSTICK 100 mg/dL NEGATIVE [facility] [employer] KETONES, URINE DIPSTICK Negative NEGATIVE mg/dL [facility] [employer] LEUKOCYTE ESTERASE, URINE DIPSTK Negative NEGATIVE [facility] [employer] Microscopic observation LM Nom (Urine sed) YES NO [place] [employer] Nitrate Ql (U) Negative NEGATIVE [facility] PH, URINE DIPSTICK 5.5 [facility] [employer] Protein (U) [Mass/Vol] TRACE NEGAT DOMONIQUE mg/dL [facility] [employer] SPECIFIC GRAVITY, URINE DIPSTICK 1.025 [facility] UROBILINOGEN, URINE DIPSTICK 0.2 [facility] XR CHEST AP PORTABLEon 06-06 Impression: Normal e xam. Electronically Signed By: Nadeem Mercado M.D. on Jun 06 2019 11:49:26:900PM [place] [place] [employer] Patient Name: JUSTICE ARANDA Patient NRM: [id number] Patient : 1970 Examination:XR CHEST AP PORTABLE [...] consolidation, effusion or pnuemothorax. Osseous structures normal. [facility] User, Interfaces - 06/06/2019 11:49 PM EDT Patient Name: JUSTICE ARANDA Patient NRM: [id number] Patient : 1970 Examination:XR CHEST AP PORTABLE [...] Mercado M.D. on Jun 06 2019 11:49:26:900PM Tagwhat Otheron 06-01-2019 Patient Name: JUSTICE ARANDA Patient NRM: [id number] Patient : 1970 Examination:XR ELBOW RIGHT 3+ [...] Mckeon MD. on Jun 01 2019 3:53:18:820PM Tagwhat User, Interfaces - 06/01/2019 3:53 PM EDT Patient Name: JUSTICE ARANDA Patient NRM: [id number] Patient : 1970 Examination:XR ELBOW RIGHT 3+ [...] Mckeon MD. on Jun 01 2019 3:53:18:820PM Tagwhat ACETAMINOPHEN LEVELon 2018 Acetaminophen [Mass/Vol] <10 10 - 30 ug/mL Tagwhat ALCOHOL (ETHANOL),BLOODon Ethanol [Mass/Vol] 243 mg/dL High 0 - 10 mg/dL Tagwhat Comment on above: ETOH: % = MG/DL DIVIDED BY 1000 Interpretation and review of laboratory results Abnormal Tagwhat CBC, EDIF, PLATELETon 2018 Basophils/100 WBC (Bld) 1.0 % 0 - 3 % Tagwhat Eosinophils/100 WBC (Bld) 0.7 % 0 - 4 % Tagwhat Erythrocyte distribution width (RBC) [Ratio] 12.4 % 11.5 - 14.5 % Tagwhat Hematocrit (Bld) [Volume fraction] 38.9 % Low 42 - 52 % Tagwhat Hemoglobin (Bld) [Mass/Vol] 13.9 g/dL Low 14 - 18 g/dL Tagwhat Interpretation and review of laboratory results Abnormal Tagwhat Lymphocytes/100 WBC (Bld) 26.5 % 20.5 - 51.1 % [facility] [employer] [facility] [employer] MCH (RBC) [Entitic mass] 33.1 pg High 28 - 32 pg [facility] MCHC (RBC) [Mass/Vol] 35.7 g/dL 33 - 3 7 g/dL [facility] MCV (RBC) [Entitic vol] 92.6 fL 80 - [address] [employer] Monocytes/100 WBC (Bld) 5.4 % 0 - 13 % [facility] Neutrophils/100 WBC (Bld) 66.4 % 42.2 - 75.2 % [facility] Platelets (Bld) [#/Vol] 144 10*3/uL [facility] [employer] RBC (Bld) [#/Vol] 4.20 10*6/uL Low [facility] [employer] SCAN SLIDE NO NO [facility] [employer] WBC (Bld) [#/Vol] 5.4 10*3/uL [facility] COMPREHENSIVE METABOLIC PROF [facility] 05-31-2019 Albumin BCG dye [Mass/Vol] 3.8 g/dL 3.5 - 5 g/dL [facility] [employer] Albumin/Globulin [Mass ratio] 1.1 {ratio} Low [facility] ALP [Catalytic activity/Vol] 55 U/L 38 - 126 U/L [facility] ALT No additional P-5'-P [Catalytic activity/Vol] 25 U/L 10 - 40 U/L [facility] [employer] Anion gap [Moles/Vol] 14.5 mmol/L [facility] AST [Catalytic activity/Vol] 22 U/L 10 - 42 U/L [facility] [employer] Bilirubin [Mass/Vol] 0.9 mg/dL 0.3 - 1 .2 mg/dL [facility] [employer] Calcium [Mass/Vol] 8.3 mg/dL Low 8.4 - 10. 2 mg/dL [facility] [employer] Chloride [Moles/Vol] 100 mmol/L [facility] [employer] CO2 [Moles/Vol] 22 mmol/L [facility] [employer] Creatinine [Mass/Vol] 0.8 mg/dL 0.4 - 1.1 mg/dL [facility] [employer] GFR/1.73 sq M.predicted MDRD (S/P/Bld) [Vol rate/Area] mL/min/{1.73_m2} [facility] [employer] [facility] [employer] Comment on above: Estimated Glomerular filtration Rate Reference Ranges: GFR, mL/min/1.73m2 >= 60 Adequate 30 - 59 Moderately decreased GFR 15 - 29 Severely decreased GFR <18 Kidney failure (or dialysis) GFR calculated using abbreviated MDRD formula. MDRD equation not suitable for patients who are under 18, have unstable creatinine concentrations Globulin (S) [Mass/Vol] 3.4 g/dL High 2.9 - 3.3 g/dL Tagwhat Glucose [Mass/Vol] 208 mg/dL High 70 - 126 mg/dL Tagwhat Potassium [Moles/Vol] 3.5 mmol/L [place] [employer] Protein [Mass/Vol] 7.2 g/dL 6.4 - 8.3 g/dL Tagwhat Sodium [Moles/Vol] 133 mmol/L Low [place] [employer] Urea nitrogen [Mass/Vol] 13 mg/dL 7 - 22 mg/dL [place] [employer] DRUGS OF ABUSE PROFILE, URIN [place] 05-31-2019 Acetaminophen+Phenacet in Screen Ql (U) Negative NEG [place] [employer] Amphetamine cutoff Screen (U) [Mass/Vol] Negative NEG [place] [employer] Barbiturate Negative NEG [place] [employer] Benzodiazepines Ql (U) Negative NEG [facility] [employer] Cannabinoids Screen Ql (U) Negative NEG [place] [employer] Cocaine Metabolite Negative NEG [place] [employer] Methadone Confirm (Hu) [Mass/Vol] Negative NEG [place] [employer] Methamphetamine Confirm (Hu) [Mass/Vol] Negative NEG [place] [employer] Opiates Ql (U) Negative NEG [place] [employer] Phencyclidine Ql (U) Negative NEG [place] [employer] TRICYCLIC ANTIDEPRESSANTS, URINE Negative NEG [place] [employer] Comment on above: APAP- CUT-OFF CONCEN TRATION [...] 05-31-2019 Magnesium [Mass/Vol] 1.7 mg/dL 1.7 - 2 .8 mg/dL Tagwhat Otheron 05-31-2019 Interpretation and review of laboratory results Abnormal Tagwhat SALICYLATE LEVELon 9 Salicylates [Mass/Vol] mg/dL Low 10 - 30 mg/dL Tagwhat TSHon 05-31-2019 TSH Qn 2.466 m[IU]/L Tagwhat URINALYSIS W/ MICRO W/ REFLE X C AND Son 05-31-2019 Appearance (U) CLEAR CLEAR [employer] Bacteria LM Ql (Urine sed) NONE SEEN NONE SEEN [employer] BILIRUBIN, URINE DIPSTICK Negative NEGATIVE Tagwhat BLOOD, URINE DIPSTICK Negative NEGATIVE Tagwhat C & S INDICATED NO NO [employer] Casts LM.LPF (Urine sed) [#/Area] PRESENT NONE SEEN /lpf Tagwhat Color (U) YELLOW YELLOW Tagwhat Epithelial cells.squamous LM.HPF (Urine sed) [#/Area] NONE SEEN NONE SEEN /hpf [employer] Fine Granular Casts LM.LPF (Urine sed) [#/Area] 0-2 NONE SEEN /lpf [employer] GLUCOSE, URINE DIPSTICK Negative NEGATIVE mg/dL [employer] Hyaline casts (Urine sed) [#/Area] 0-2 [employer] KETONES, URINE DIPSTICK TRACE NEGATIVE mg/dL [employer] LEUKOCYTE ESTERASE, URINE DIPSTK Negative NEGATIVE [employer] Mucus Ql (Urine sed) 1+ THREADS NONE SEEN [employer] Nitrate Ql (U) Negative NEGATIVE [employer] PH, URINE DIPSTICK 5.5 [place] [employer] Protein (U) [Mass/Vol] 30 mg/dL NEGATIVE [facility] [employer] [facility] [employer] RBC LM.HPF (Urine sed) [#/Area] 0-2 NONE SEEN /hpf [employer] SPECIFIC GRAVITY, URINE DIPSTICK 1.010 [employer] Unidentified crystals LM Ql (Urine sed) NONE SEEN NONE SEEN Tagwhat UROBILINOGEN, URINE DIPSTICK 0.2 Tagwhat WBC LM.HPF (Urine sed) [#/Area] 0-2 Tagwhat XR SHOULDER RIGHT MIN 2 VIEW Son 05-31-2019 User, Interfaces - 05/31/2019 10:35 PM EDT Patient Name: JUSTICE ARANDA Patient NRM: [id number] Patient : 1970 Examination:XR SHOULDER RIGHT MIN [...] Guaman MD. on May 31 2019 10:35:11:040PM Tagwhat Patient Name: JUSTICE ARANDA Patient NRM: [id number] Patient : 1970 Examination:XR SHOULDER RIGHT MIN [...] are intact. There is normal bone mineralization. Tagwhat IMPRESSION: No fract ure or misalignment is seen. If symptoms persist, CT and/or MRI may provide further evaluation. Electronically Signed By: Shane Guaman MD. on May 31 2019 10:35:11:040PM Tagwhat ACETONE, SERUM, KETONESon KETONES,SERUM Negative NEGATIVE Tagwhat CBC, EDIF, PLATELETon 2018 Basophils/100 WBC (Bld) 1.1 % 0 - 3 % Tagwhat Eosinophils/100 WBC (Bld) 2.1 % 0 - 4 % Tagwhat Erythrocyte distribution width (RBC) [Ratio] 12.8 % 11.5 - 14.5 % Tagwhat Hematocrit (Bld) [Volume fraction] 40.0 % Low 42 - 52 % Tagwhat Hemoglobin (Bld) [Mass/Vol] 14.3 g/dL 14 - 18 g/dL [facility] Lymphocytes/100 WBC (Bld) 33.1 % 20.5 - 51.1 % [facility] [employer] MCH (RBC) [Entitic mass] 33.2 pg High 28 - 32 pg [facility] MCHC (RBC) [Mass/Vol] 35.7 g/dL 33 - 3 7 g/dL [facility] MCV (RBC) [Entitic vol] 92.9 fL 80 - [address] [employer] Monocytes/100 WBC (Bld) 7.2 % 0 - 13 % [facility] Neutrophils/100 WBC (Bld) 56.5 % 42.2 - 75.2 % [facility] Platelets (Bld) [#/Vol] 147 10*3/uL [facility] RBC (Bld) [#/Vol] 4.31 10*6/uL Low [facility] SCAN SLIDE NO NO [facility] WBC (Bld) [#/Vol] 4.6 10*3/uL Low [facility] [employer] CKon 05-26-2019 CK [Catalytic activity/Vol] 125 U/L 38 - 174 U/L [facility] COMPREHENSIVE METABOLIC PANE [place] 05-26-2019 Albumin BCG dye [Mass/Vol] 3.7 g/dL 3.5 - 5 g/dL [facility] Albumin/Globulin [Mass ratio] 1.1 {ratio} Low [facility] ALP [Catalytic activity/Vol] 53 U/L 38 - 126 U/L [facility] ALT No additional P-5'-P [Catalytic activity/Vol] 19 U/L 10 - 40 U/L [facility] AST [Catalytic activity/Vol] 21 U/L 10 - 42 U/L [facility] Bilirubin [Mass/Vol] 1.1 mg/dL 0.3 - 1 .2 mg/dL [facility] Calcium [Mass/Vol] 8.7 mg/dL 8.4 - 10. 2 mg/dL [facility] Chloride [Moles/Vol] 106 mmol/L [facility] CO2 [Moles/Vol] 25 mmol/L [facility] Creatinine [Mass/Vol] 0.8 mg/dL 0.4 - 1.1 mg/dL [facility] GFR/1.73 sq M.predicted MDRD (S/P/Bld) [Vol rate/Area] mL/min/{1.73_m2} Tagwhat Comment on above: Estimated Glomerular filtration Rate Reference Ranges: GFR, mL/min/1.73m2 >= 60 Adequate 30 - 59 Moderately decreased GFR 15 - 29 Severely decreased GFR <18 Kidney failure (or dialysis) GFR calculated using abbreviated MDRD formula. MDRD equation not suitable for patients who are under 18, have unstable creatinine concentrations Globulin (S) [Mass/Vol] 3.3 g/dL 2.9 - 3.3 g/dL [place] [employer] Glucose [Mass/Vol] 168 mg/dL High 70 - 126 mg/dL [place] [employer] Potassium [Moles/Vol] 4.1 mmol/L [place] [employer] Protein [Mass/Vol] 7.0 g/dL 6.4 - 8.3 g/dL Tagwhat Sodium [Moles/Vol] 138 mmol/L [place] [employer] Urea nitrogen [Mass/Vol] 14 mg/dL 7 - 22 mg/dL [place] [employer] DRUGS OF ABUSE PROFILE, URIN [place] 05-26-2019 Acetaminophen+Phenacet in Screen Ql (U) Negative NEG [place] [employer] Amphetamine cutoff Screen (U) [Mass/Vol] Negative NEG [place] [employer] Barbiturate Negative NEG [place] [employer] Benzodiazepines Ql (U) Negative NEG [facility] [employer] Cannabinoids Screen Ql (U) Negative NEG [place] [employer] Cocaine Metabolite Negative NEG [place] [employer] Methadone Confirm (Hu) [Mass/Vol] Negative NEG [place] [employer] Methamphetamine Confirm (Hu) [Mass/Vol] Negative NEG [place] [employer] Opiates Ql (U) Negative NEG [place] [employer] Phencyclidine Ql (U) Negative NEG [place] [employer] TRICYCLIC ANTIDEPRESSANTS, URINE Negative NEG Tagwhat Comment on above: APAP- CUT-OFF CONCEN TRATION [...] PURPOSES ONLY ECGon 05-26-2019 Leilani Monge MD 05/26/2019 10:57 AM ECG Procedure Date: 05/26/2019 Procedure Start: 09:59 Performed by: Leilani Monge MD Authorized by: Leilani Monge MD [place] Protocol Immediately prior to procedure a time out was called to verify the correct patient, procedure, equipment, systems support engineer and site/side marked as required. Additional Notes EKG sinus bradycardia with ventricular rate of 56 bpm, IN interval 186 ms, QRS duration 82 ms, QT/QTc 430/414 ms. Inferior lead changes. Tagwhat MAGNESIUMon 05-26-2019 Magnesium [Mass/Vol] 1.6 mg/dL Low 1.7 - 2 .8 mg/dL Tagwhat Otheron 05-26-2019 Interpretation and review of laboratory results Abnormal Tagwhat PH VENOUSon 05-26-2019 pH (BldV) 7.360 [pH] Tagwhat PROTIME-INRon 05-26-2019 INR Coag (PPP) [Relative time] 1.0 {INR} Tagwhat Comment on above: INR: ------INDICATION INR Ref Range DVT, PE, AF, AMI, tissue heart valve 2.0 - 3.0 Mechanical prosthetic valves 2.5 - 3.5 PT Coag (PPP) [Time] 11.7 s Tagwhat TROPONINon 05-26-2019 Troponin I.cardiac [Mass/Vol] ng/mL 0 - 0.06 ng/mL Tagwhat Comment on above: TROPONIN REFERENCE R ANGES: [...] Ql (Urine sed) NONE SEEN NONE SEEN Tagwhat C & S INDICATED NO NO [facility] Casts LM.LPF (Urine sed) [#/Area] NONE SEEN NONE SEEN /lpf [facility] Epithelial cells.squamous LM.HPF (Urine sed) [#/Area] NONE SEEN NONE SEEN /hpf [facility] Mucus Ql (Urine sed) 1+ THREADS NONE SEEN [facility] RBC LM.HPF (Urine sed) [#/Area] 0-2 NONE SEEN /hpf [facility] Unidentified crystals LM Ql (Urine sed) NONE SEEN NONE SEEN [facility] WBC LM.HPF (Urine sed) [#/Area] NONE SEEN [facility] URINALYSIS WITH REFLEX CULTU REon 05-26-2019 Appearance (U) CLEAR CLEAR [facility] BILIRUBIN, URINE DIPSTICK Negative NEGATIVE [facility] BLOOD, URINE DIPSTICK Negative NEGATIVE [facility] [employer] Color (U) YELLOW YELLOW [facility] GLUCOSE, URINE DIPSTICK 100 mg/dL NEGATIVE [facility] KETONES, URINE DIPSTICK Negative NEGATIVE mg/dL [facility] LEUKOCYTE ESTERASE, URINE DIPSTK Negative NEGATIVE [facility] Microscopic observation LM Nom (Urine sed) YES NO [facility] Nitrate Ql (U) Negative NEGATIVE [facility] PH, URINE DIPSTICK 5.0 [facility] [employer] Protein (U) [Mass/Vol] Negative NEGAT [place]ON[place] mg/dL [facility] SPECIFIC GRAVITY, URINE DIPSTICK >=1.030 [facility] UROBILINOGEN, URINE DIPSTICK 0.2 [facility] CBC, EDIF, PLATELETon 2018 Basophils/100 WBC (Bld) 1.0 % 0 - 3 % [facility] Eosinophils/100 WBC (Bld) 2.3 % 0 - 4 % [facility] Erythrocyte distribution width Ratio (RBC) 12.3 % 11.5 - 14.5 % [facility] Hematocrit Volume Fraction (Bld) 39.2 % Low 42 - 52 % [facility] Hemoglobin mass conc (Bld) 14.2 g/dL 14 - 18 g/dL [facility] Interpretation and review of laboratory results Abnormal [facility] Lymphocytes/100 WBC (Bld) 34.9 % 20.5 - 51.1 % [facility] MCH Entitic mass (RBC) 33.4 pg High 28 - 32 [facility] mass conc (RBC) 36.1 g/dL 33 - 37 g/dL [facility] [employer] [facility] [employer] MCV Entitic volume (RBC) 92.3 fL 80 - [address] [employer] [facility] [employer] Monocytes/100 WBC (Bld) 6.3 % 0 - 13 % [facility] Neutrophils/100 WBC (Bld) 55.5 % 42.2 - 75.2 % [facility] Platelets #/vol (Bld) 149 10*3/uL [facility] RBC #/vol (Bld) 4.25 10*6/uL Low [facility] SCAN SLIDE NO NO [facility] WBC corrected for nucl RBC Auto #/vol (Bld) 4.[address] [employer] COMPREHENSIVE METABOLIC PANE [place] 05-03-2019 Albumin Bromocresol green (BCG) dye binding method mass conc 3.5 g/dL 3.5 - 5 g/dL [facility] [employer] [facility] [employer] Albumin/Globulin mass ratio 1.1 {ratio} Low [facility] ALP enzyme act/vol 59 U/L 38 - 126 U/L [facility] [employer] ALT No additional P-5'-P enzyme act/vol 25 U/L 10 - 40 U/L [facility] AST enzyme act/vol 21 U/L 10 - 42 U/L [facility] [employer] Bilirubin mass conc 0.8 mg/dL 0.3 - 1. 2 mg/dL [facility] [employer] Calcium mass conc 8.2 mg/dL Low 8.4 - 10.2 mg/dL [facility] [employer] [facility] [employer] Chloride molar conc 104 mmol/L [facility] [employer] CO2 molar conc 25 mmol/L [facility] Creatinine mass conc 0.7 mg/dL 0.4 - 1 .1 mg/dL [facility] GFR/1.73 sq M.predicted MDRD vol rate/area mL/min/{1.73_m2} [facility] Comment on above: Estimated Glomerular filtration Rate Reference Ranges: GFR, mL/min/1.73m2 >= 60 Adequate 30 - 59 Moderately decreased GFR 15 - 29 Severely decreased GFR <18 Kidney failure (or dialysis) GFR calculated using abbreviated MDRD formula. MDRD equation not suitable for patients who are under 18, have unstable creatinine concentrations Globulin mass conc (S) 3.2 g/dL 2.9 - 3.3 g/dL [facility] Glucose mass conc 208 mg/dL High 70 - 126 mg/dL [facility] [employer] Interpretation and review of laboratory results Abnormal [facility] Potassium molar conc 3.8 mmol/L [facility] Protein mass conc 6.7 g/dL 6.4 - 8.3 g/dL [facility] Sodium molar conc 137 mmol/L [facility] Urea nitrogen mass conc 14 mg/dL 7 - 22 mg/dL [facility] CT HEAD WITHOUT CONTRASTon 0 05-03-2019 User, Interfaces - 05/03/2019 9:33 AM EDT Patient Name: JUSTICE [...] non-contrast CT head. No acute intracranial changes. [facility] Patient Name: AYAZ ARANDA JR. Patient Patient [...] appear normally pneumatized. The skull appears normal. Tagwhat IMPRESSION: Normal non-contrast CT head. No acute intracranial changes. Tagwhat U/A WITH MICROSCOPICon 05-03 Bacteria LM Ql (Urine sed) TRACE NONE SEEN Tagwhat C & S INDICATED NO NO [facility] [employer] [facility] [employer] Casts LM.LPF #/area (Urine sed) NONE SEEN NONE SEEN /lpf [employer] Epithelial cells.squamous LM.HPF #/area (Urine sed) 0-2 NONE SEEN /hpf [facility] [employer] Mucus Ql (Urine sed) NONE SEEN NONE SEEN [employer] RBC LM.HPF #/area (Urine sed) 0-2 NONE SEEN /hpf [employer] Unidentified crystals LM Ql (Urine sed) NONE SEEN NONE SEEN [employer] WBC LM.HPF #/area (Urine sed) 0-2 Tagwhat URINALYSIS WITH REFLEX CULTU REon 05-03-2019 Appearance Nom (U) CLEAR CLEAR [place] [employer] BILIRUBIN, URINE DIPSTICK Negative NEGATIVE Tagwhat BLOOD, URINE DIPSTICK Negative NEGATIVE Tagwhat Color Nom (U) YELLOW YELLOW Tagwhat GLUCOSE, URINE DIPSTICK 100 mg/dL NEGATIVE Tagwhat KETONES, URINE DIPSTICK Negative NEGATIVE mg/dL Tagwhat LEUKOCYTE ESTERASE, URINE DIPSTK Negative NEGATIVE Tagwhat Microscopic observation LM Nom (Urine sed) YES NO [employer] Nitrate Ql (U) Negative NEGATIVE Tagwhat PH, URINE DIPSTICK 6.0 [email or web address] Protein mass conc (U) Negative NEGATI VE mg/dL Tagwhat SPECIFIC GRAVITY, URINE DIPSTICK >=1.030 Tagwhat UROBILINOGEN, URINE DIPSTICK 0.2 Tagwhat Basic Metabolic Profon 11-25 (cont.) Normal [facility] Comment on above: Result Comment: Aver age GFR for 40-49 years old: 99 mL/min/1.73sq m Chronic Kidney Disease: <60 mL/min/1.73sq m Kidney failure: <15 mL/min/1.73sq m eGFR calculated using average adult body mass. Additional eGFR calculator available at: http://www.globalrph.[employer]/multiple_crcl_2012.htm Performed By: #### C DP, BMP, TROPI #### [address] [place] [address] Anion gap [Moles/Vol] 10 mmol/L Normal 9-17 [facility] Comment on above: Performed By: #### C DP, BMP, TROPI #### [address] [place] [address] BUN/CRE Ratio 17 Normal 9-20 [facility] Comment on above: Performed By: #### C DP, BMP, TROPI #### [address] [place] [address] Calcium [Mass/Vol] 8.5 mg/dL Low 8.6-10.4 [facility] Comment on above: Performed By: #### C DP, BMP, TROPI #### [address] [place] [address] Chloride [Moles/Vol] 100 mmol/L Normal 98-107 [facility] Comment on above: Performed By: #### C DP, BMP, TROPI #### [address] [place] [address] CO2 [Moles/Vol] 27 mmol/L Normal 20-31 [facility] Comment on above: Performed By: #### C DP, BMP, TROPI #### [address] [place] [address] Creatinine [Mass/Vol] 0.84 mg/dL Normal 0.70-1.20 [facility] Comment on above: Performed By: #### C DP, BMP, TROPI #### [address] [place] [address] GFR, Amer >60 Normal >60 [facility] Comment on above: Performed By: #### C DP, BMP, TROPI #### [address] [place], [place] [id number] [phone] GFR,non Amer >60 Normal >60 [facility] Comment on above: Performed By: #### C ISABEL BMP, TROPI #### [address] [place] [address] Glucose [Mass/Vol] 213 mg/dL High 70-99 [facility] Comment on above: Performed By: #### C ISABEL, BMP, TROPI #### [address] [place] [address] Potassium [Moles/Vol] 3.6 mmol/L Low 3.7-5.3 [facility] Comment on above: Performed By: #### C ISABEL, BMP, TROPI #### [address] [place] [address] Sodium [Moles/Vol] 137 mmol/L Normal 135-144 [facility] Comment on above: Performed By: #### C ISABEL BMP, TROPI #### [address] [place] [address] Staging: Normal [facility] Comment on above: Result Comment: Stag e 1: Some kidney damage normal GFR Stage 2: Mild kidney damage GFR 60-89 Stage 3: Moderate kidney damage GFR 30-59 Stage 4: Severe kidney damage GFR 15-29 Stage 5: Severe kidney damage GFR <15 ESRD - chronic treatment by dialysis or transplant Performed By: #### C ISABEL, BMP, TROPI #### [address] [place] [address] Urea nitrogen [Mass/Vol] 14 mg/dL Normal 6-20 [facility] Comment on above: Performed By: #### C ISABEL, BMP, TROPI #### [address] [place], [place] [id number] [phone] CBC with Diffon 11-25-2018 Abs. Basophil <0.03 Normal 0.00-0.20 [facility] Comment on above: Performed By: #### C DP, BMP, TROPI #### [address] [place] [address] Abs.Imm.Granulocyte <0.03 Normal 0.00-0.30 [facility] Comment on above: Performed By: #### C DP, BMP, TROPI #### [address] [place] [address] Abs.Neutrophil (Seg) 1.92 k/uL Normal 1.50-8.10 [facility] Comment on above: Performed By: #### C DP, BMP, TROPI #### [address] [place] [address] Basophils/100 WBC (Bld) 0 % Normal 0-2 [facility] Comment on above: Performed By: #### C DP, BMP, TROPI #### [address] [place] [address] Eosinophils (Bld) [#/Vol] 10*3/uL Normal 0.00-0.44 [facility] Comment on above: Performed By: #### C DP, BMP, TROPI #### [address] [place] [address] Eosinophils/100 WBC (Bld) 0 % Low 1-4 [facility] Comment on above: Performed By: #### C DP, BMP, TROPI #### [address] [place] [address] Erythrocyte distribution width (RBC) [Ratio] 12.9 % Normal 11.8-14.4 [facility] Comment on above: Performed By: #### C DP, BMP, TROPI #### [address] [place] [address] Hematocrit (Bld) [Volume fraction] 38.7 % Low 40.7-50.3 [facility] Comment on above: Performed By: #### C DP, BMP, TROPI #### [address] [place] [address] Hemoglobin (Bld) [Mass/Vol] 13.3 g/dL Normal 13.0-17.0 [facility] Comment on above: Performed By: #### C DP, BMP, TROPI #### [address] [place] [address] Immature granulocytes (Bld) [#/Vol] 0 % Normal 0 [facility] Comment on above: Performed By: #### C DP, BMP, TROPI #### [address] [place], [facility] Lymphocytes (Bld) [#/Vol] 0.85 10*3/uL Low 1.10-3.70 [facility] Comment on above: Performed By: #### C DP, BMP, TROPI #### [address] [place], [facility] Lymphocytes/100 WBC (Bld) 25 % Normal 24-43 [facility] Comment on above: Performed By: #### C DP, BMP, TROPI #### [address] [place] [address] MCH (RBC) [Entitic mass] 32.9 pg Normal 25.2-33.5 [facility] Comment on above: Performed By: #### C DP, BMP, TROPI #### [address] [place], [facility] MCHC (RBC) [Mass/Vol] 34.4 g/dL Normal 28.4-34.8 [facility] Comment on above: Performed By: #### C DP, BMP, TROPI #### [address] [place], [facility] MCV (RBC) [Entitic vol] 95.8 fL Normal 82.6-102.9 [facility] Comment on above: Performed By: #### C DP, BMP, TROPI #### [address] [place] [address] Monocytes (Bld) [#/Vol] 0.58 10*3/uL Normal 0.10-1.20 [facility] Comment on above: Performed By: #### C DP, BMP, TROPI #### [address] [place] [address] Monocytes/100 WBC (Bld) 17 % High 3-12 [facility] Comment on above: Performed By: #### C DP, BMP, TROPI #### [address] [place] [address] Neutrophil (Seg) 57 % Normal 36-65 [facility] Comment on above: Performed By: #### C DP, BMP, TROPI #### [address] [place], [facility] NRBC Automated 0.0 per 100 WBC Normal 0.0 [facility] Comment on above: Performed By: #### C DP, BMP, TROPI #### [address] [place], [facility] Platelet mean volume (Bld) [Entitic vol] 10.8 fL Normal 8.1-13.5 [facility] Comment on above: Performed By: #### C DP, BMP, TROPI #### [address] [place], [facility] Platelets (Bld) [#/Vol] 131 10*3/uL Low 138-453 [facility] Comment on above: Performed By: #### C DP, BMP, TROPI #### [address] [place], [place] [address] RBC (Bld) [#/Vol] 4.04 10*6/uL Low 4.21-5.77 [facility] Comment on above: Performed By: #### C DP, BMP, TROPI #### [address] [place], [place] [id number] [phone] WBC (Bld) [#/Vol] 3.4 10*3/uL Low 3.5-11.3 [facility] Comment on above: Performed By: #### C REBECA HALL, TROPI #### [address] [place], [place] [id number] [phone] Flu A/B Ag Detectionon 11-25 Flu A/B Ag Detection Specimen Descriptio n .NASOPHARYNGEAL SWAB Special Requests NOT REPORTED Direct Exam POSITIVE for Influenza A Antigen NEGATIVE for Influenza B Antigen Report Status FINAL 11/24/2018 Normal [facility] Comment on above: Performed By: #### F LUAD #### [address] [place] [id number] Strep Gr A Direct Agon 11-25 Strep Gr A Direct Ag Specimen Descriptio n .THROAT Special Requests NOT REPORTED Direct Exam Rapid Strep A negative. A negative Rapid Group A Strep Screen result does not rule out the possibility of Group A Streptococci in the specimen. A Group A Strep DNA test is available upon request. Report Status FINAL 11/24/2018 Normal [facility] Comment on above: Performed By: #### S GPA #### [address] [place], [place] [id number] Troponinon 11-25-2018 Troponin I.cardiac [Mass/Vol] ng/mL Normal <0.03 [facility] Comment on above: Result Comment: Trop onin T results cannot be compared to Troponin-I results. Performed By: #### C ISABEL, REBECA, TROPI #### [address] [place], [place] [id number] ([phone] Troponin I.cardiac [Mass/Vol] Normal [facility] Comment on above: Result Comment: Refe rence [...] By: #### C DP, BMP, TROPI #### [address] [place] [address] XR CHEST PORTABLEon 11-25-20 XR CHEST PORTABLE [...] La Garza MD 11/24/18 Final result Normal [facility] CBC with Diffon 11-24-2018 Auto Diff Performed NOT REPORTED Normal [facility] Comment on above: Performed By: #### C DP, BMP, TROPI #### [address] [place] [address] Platelets (Bld) [#/Vol] NOT REPORTED Normal [facility] Comment on above: Performed By: #### C DP, BMP, TROPI #### [address] [place] [address] RBC morphology finding Nom (Bld) NOT REPORTED Normal [facility] Comment on above: Performed By: #### C DP, BMP, TROPI #### [address] [place] [address] WBC Morphology NOT REPORTED Normal [facility] Comment on above: Performed By: #### C DP, BMP, TROPI #### [address] [place] [address] Troponinon 11-24-2018 Troponin I.cardiac [Mass/Vol] NOT REPORTED Normal 0-22 [facility] Comment on above: Performed By: #### C DP, BMP, TROPI #### [address] [place] [address] FANNYOVon 10-09-2018 CNOV Office Visit (UROLMN ) -- JUSTICE ARANDA ([id number]) 1970 M Date Time Provider Department 10/09/18 1:30 PM KARY MENDEZ UROROSEANN During your visit today, we recorded the following information about you: Temperature Pulse Blood pressure 97.5 degrees 94/minute 135/81 Kary Mendez MD 10/09/2018 3:29 PM Signed [facility] NEW PATIENT HISTORY AND PHYSICAL EXAM PATIENT INFO: Justice Aranda 48 year old REFERRING M.D.: Dennis Mason MD [address] [place] [facility] [address] ====== HISTORY 48 year old male here for [...] this provides a half erection. His home [facility] urologist reported that injections were not a good option as him and his partner are active 5 x a week- more injections than he should have . PSA and JM followed by hometown providers. ====== MEDICATIONS: Current Outpatient Prescriptions: metFORMIN ER (GLUCOPHAGE [...] for internal providers or letter via the [employer] for external providers. HPI: Girlfriend [...] presence of Kary Mendez MD. 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 Mason: I had the pleasure of seeing your patient today. Enclosed is a copy of his office visit note. Thank you for the opportunity of sharing in his care. Sincerely yours, Kary Mendez MD DKM/ms Enc: office note Encounter Status:Closed by KARY MENDEZ MD on 10/09/18 Normal [facility] PROGRESSon 10-09-2018 PROGRESS HNO ID: [id number] Author: Kary Mendez Service: (none) Author Type: Physician Type: Progress Notes Filed: 10/09/2018 3:29 PM Note Text: [facility] NEW PATIENT HISTORY AND PHYSICAL EXAM PATIENT INFO: Justice Aranda 48 year old REFERRING M.D.: Dennis Mason MD [address] [place] [address] ====== HISTORY 48 year old male here for [...] this provides a half erection. His home [facility] urologist reported that injections were not a good option as him and his partner are active 5 x a week- more injections than he should have . PSA and JM followed by hometown providers. ====== MEDICATIONS: Current Outpatient Prescriptions: metFORMIN ER (GLUCOPHAGE [...] for internal providers or letter via the [employer] for external providers. HPI: Girlfriend [...] presence of Kary Mendez MD. Electronically signed: [place] Urena, October 09, 2018 3:03 PM Kary Ireland MD, personally performed the services described in this documentation. All medical record entries made by the [email or web address] were at my direction and in my presence. I have reviewed the chart and discharge instructions (if applicable) and agree that the record reflects my personal performance and is accurate and complete. Kary Mendez MD October 09, 2018 3:03 PM Normal [facility] Urinalysison 10-09-2018 Bilirubin, Urine Negative Normal Negative Alessandra sesay [facility] Comment on above: Performed By: #### U A #### [facility] [address] [place], [place] [address] Clarity (U) Clear Normal Clear [facility] Comment on above: Performed By: #### U A #### [facility] [address] [place] [address] Color (U) Yellow Normal Yellow [facility] Comment on above: Performed By: #### U A #### [facility] [address] [place] [address] Comments SEE COMMENT Normal [facility] Comment on above: Result Comment: Micr oscopic not warranted Performed By: #### U A #### [place] [id number] [place] [address] Glucose Ql (U) >=1000 Critically abnormal Negative [facility] Comment on above: Performed By: #### U A #### [place] [phone] Hemoglobin/Blood,Ur Negative Normal Negative [facility] Comment on above: Performed By: #### U A #### [facility] [address] [place] [address] Ketones Ql (U) Negative Normal Negative [facility] Comment on above: Performed By: #### U A #### [place] [phone] [place] [address] Leukest Negative Normal Negative [facility] Comment on above: Performed By: #### U A #### [facility] [address] [place] [phone] Nitrite Ql (U) Negative Normal Negative [facility] Comment on above: Performed By: #### U A #### [facility] [address] [place] [address] pH (Bld) 5.5 Normal 4.5-8.0 [facility] Comment on above: Performed By: #### U A #### [place] [phone] [place] [address] Protein (U) [Mass/Vol] Negative Normal Negative [facility] Comment on above: Performed By: #### U A #### [facility] [address] [place], [place] [address] Specific [place], Ur 1.018 Normal 1.005-1.030 [facility] Comment on above: Performed By: #### U A #### [facility] [address] [place] [address] Urine Zach Comment SEE COMMENT Normal [facility] Comment on above: Result Comment: N/A Performed By: #### U A #### [facility] [address] [place] [address] Urobilinogen Qn (U) Normal Normal Normal [facility] Comment on above: Performed By: #### U A #### [place] [id number] [place] [address] Vital Signs Date Time Vital Sign Value Performing Clinician Facility 08-15-2023 10:16-0400 Diastolic blood pressure 76 mm[Hg] DO Crow Dean Work Phone: [facility] 08-15-2023 10:16-0400 Heart rate 89 /min DO Crow Dean Work Phone: [facility] 08-15-2023 10:16-0400 Respiratory rate 18 /min DO Crow Dean Work Phone: [facility] 08-15-2023 10:16-0400 SaO2% (BldA) [Mass fraction] 97 % DO Crow Dean Work Phone: [facility] 08-15-2023 10:16-0400 Systolic blood pressure 139 mm[Hg] DO Crow Dean Work Phone: [facility] 08-15-2023 08:18-0400 Body height 180.34 cm DO Crow Dean Work Phone: [facility] 08-15-2023 08:18-0400 Body temperature 97.8 [degF] DO Crow Dean Work Phone: [facility] 08-15-2023 08:18-0400 Body weight 80.2 kg DO Crow Sumanth Work Phone: [facility] 07-23-2023 05:21-0400 Diastolic blood pressure 74 mm[Hg] DO Crow Sumanth Work Phone: [facility] 07-23-2023 05:21-0400 Heart rate 78 /min DO Crow Dean Work Phone: [facility] 07-23-2023 05:21-0400 Respiratory rate 19 /min DO Crow Dean Work Phone: [facility] 07-23-2023 05:21-0400 SaO2% (BldA) [Mass fraction] 98 % DO Crow Dean Work Phone: [facility] 07-23-2023 05:21-0400 Systolic blood pressure 143 mm[Hg] DO Crow Dean Work Phone: [facility] 07-22-2023 23:53-0400 Body height 180.34 cm DO Crow Dean Work Phone: [facility] 07-22-2023 23:53-0400 Body temperature 98.6 [degF] DO Crow Dean Work Phone: [facility] 07-22-2023 23:53-0400 Body weight 79 kg DO Crow Dean Work Phone: [facility] 06-30-2023 12:41-0400 Diastolic blood pressure 82 mm[Hg] DO Crow Sumanth Work Phone: [facility] 06-30-2023 12:41-0400 Heart rate 71 /min DO Crow Sumanth Work Phone: [facility] 06-30-2023 12:41-0400 Respiratory rate 18 /min DO Crow Sumanth Work Phone: [facility] 06-30-2023 12:41-0400 SaO2% (BldA) [Mass fraction] 99 % DO Crow Reyman Work Phone: [facility] 06-30-2023 12:41-0400 Systolic blood pressure 178 mm[Hg] DO Crow Sumanth Work Phone: [facility] 06-30-2023 10:17-0400 Body height 180.34 cm DO Crow Dean Work Phone: [facility] 06-30-2023 10:17-0400 Body temperature 97.8 [degF] DO Crow Dean Work Phone: [facility] 06-30-2023 10:17-0400 Body weight 83.95 kg DO Crow Dean Work Phone: [facility] 06-24-2023 11:31-0400 Diastolic blood pressure 54 mm[Hg] DO Crow Dean Work Phone: [facility] 06-24-2023 11:31-0400 Heart rate 89 /min DO Crow Dean Work Phone: [facility] 06-24-2023 11:31-0400 Respiratory rate 20 /min DO Crow Dean Work Phone: [facility] 06-24-2023 11:31-0400 SaO2% (BldA) [Mass fraction] 99 % DO Crow Dean Work Phone: [facility] 06-24-2023 11:31-0400 Systolic blood pressure 132 mm[Hg] DO Crow Sumanth Work Phone: [facility] 06-24-2023 09:44-0400 Body height 177.8 cm DO Crow Sumanth Work Phone: [facility] 06-24-2023 09:44-0400 Body temperature 98.6 [degF] DO Crow Dean Work Phone: [facility] 06-24-2023 09:44-0400 Body weight 84.2 kg DO Crowmicky Dean Work Phone: [facility] 05-05-2023 11:27-0400 Body temperature 98.4 [degF] DO Crowmikcy Dean Work Phone: [facility] 05-05-2023 11:27-0400 Diastolic blood pressure 70 mm[Hg] DO Crow Dean Work Phone: [facility] 05-05-2023 11:27-0400 Heart rate 81 /min DO Crow Dean Work Phone: [facility] 05-05-2023 11:27-0400 Respiratory rate 18 /min DO Crow Dean Work Phone: [facility] 05-05-2023 11:27-0400 SaO2% (BldA) [Mass fraction] 99 % DO Crow Dean Work Phone: [facility] 05-05-2023 11:27-0400 Systolic blood pressure 123 mm[Hg] DO Crow Dean Work Phone: [facility] 05-05-2023 05:38-0400 Body weight 85.4 kg DO Corw Dean Work Phone: [facility] 05-04-2023 16:05-0400 Body height 154.94 cm DO Crow Dean Work Phone: [facility] 05-03-2023 20:13-0400 Body temperature 100.6 [degF] DO Crow Sumanth Work Phone: [facility] 05-03-2023 20:13-0400 Diastolic blood pressure 83 mm[Hg] DO Crow Sumanth Work Phone: [facility] 05-03-2023 20:13-0400 Heart rate 105 /min DO Crow Sumanth Work Phone: [facility] 05-03-2023 20:13-0400 Respiratory rate 20 /min DO Crow Sumanth Work Phone: [facility] 05-03-2023 20:13-0400 SaO2% (BldA) [Mass fraction] 97 % DO Crow Sumanth Work Phone: [facility] 05-03-2023 20:13-0400 Systolic blood pressure 184 mm[Hg] DO Crow Sumanth Work Phone: [facility] 05-03-2023 13:37-0400 Body height 154.94 cm DO Crow Sumanth Work Phone: [facility] 05-03-2023 13:37-0400 Body weight 85.35 kg DO Crow Sumanth Work Phone: [facility] 01-07-2023 21:30-0500 Diastolic blood pressure 77 mm[Hg] DO Crow Sumanth Work Phone: [facility] 01-07-2023 21:30-0500 Heart rate 94 /min DO Crow Sumanth Work Phone: [facility] 01-07-2023 21:30-0500 Respiratory rate 20 /min DO Crow Sumanth Work Phone: [facility] 01-07-2023 21:30-0500 SaO2% (BldA) [Mass fraction] 97 % DO Crow Sumanth Work Phone: [facility] 01-07-2023 21:30-0500 Systolic blood pressure 115 mm[Hg] DO Crow Sumanth Work Phone: [facility] 01-07-2023 18:46-0500 Body height 180.34 cm DO Crow Sumanth Work Phone: [facility] 01-07-2023 18:46-0500 Body temperature 99.8 [degF] DO Crow Sumanth Work Phone: [facility] 01-07-2023 18:46-0500 Body weight 83.75 kg DO Crow Sumanth Work Phone: [facility] 10-26-2022 10:30-0500 Diastolic blood pressure 69 mm[Hg] DO Crow Sumanth Work Phone: [facility] 10-26-2022 10:30-0500 Heart rate 68 /min DO Crow Sumanth Work Phone: [facility] 10-26-2022 10:30-0500 Respiratory rate 16 /min DO Crow Dean Work Phone: [facility] 10-26-2022 10:30-0500 SaO2% (BldA) [Mass fraction] 97 % DO Crow Dean Work Phone: [facility] 10-26-2022 10:30-0500 Systolic blood pressure 128 mm[Hg] DO Crow Dean Work Phone: [facility] 10-26-2022 09:12-0500 Body height 180.34 cm DO Crow Dean Work Phone: [facility] 10-26-2022 09:12-0500 Body temperature 98.9 [degF] DO Crow Dean Work Phone: [facility] 10-26-2022 09:12-0500 Body weight 85.2 kg DO Crow Sumanth Work Phone: [facility] 10-13-2022 09:18-0500 Body height 172.72 cm DO Crow Sumanth Work Phone: [facility] 10-13-2022 09:18-0500 Body temperature 98.5 [degF] DO Crow Sumanth Work Phone: [facility] 10-13-2022 09:18-0500 Body weight 85.5 kg DO Crow Sumanth Work Phone: [facility] 10-13-2022 09:18-0500 Diastolic blood pressure 90 mm[Hg] DO Crow Sumanth Work Phone: [facility] 10-13-2022 09:18-0500 Heart rate 81 /min DO Crow Sumanth Work Phone: [facility] 10-13-2022 09:18-0500 Respiratory rate 18 /min DO Crow Sumanth Work Phone: [facility] 10-13-2022 09:18-0500 SaO2% (BldA) [Mass fraction] 98 % DO Crow Sumanth Work Phone: [facility] 10-13-2022 09:18-0500 Systolic blood pressure 142 mm[Hg] DO Crow Sumanth Work Phone: [facility] 10-11-2022 13:54-0500 Diastolic blood pressure 83 mm[Hg] DO Crow Sumanth Work Phone: [facility] 10-11-2022 13:54-0500 Heart rate 76 /min DO Crow Sumanth Work Phone: [facility] 10-11-2022 13:54-0500 Respiratory rate 16 /min DO Crow Sumanth Work Phone: [facility] 10-11-2022 13:54-0500 SaO2% (BldA) [Mass fraction] 98 % DO Crow Sumanth Work Phone: [facility] 10-11-2022 13:54-0500 Systolic blood pressure 138 mm[Hg] DO Crow Sumanth Work Phone: [facility] 10-11-2022 11:45-0500 Body height 180.34 cm DO Crow Sumanth Work Phone: [facility] 10-11-2022 11:45-0500 Body temperature 98.5 [degF] DO Crow Dean Work Phone: [facility] 10-11-2022 11:45-0500 Body weight 84.8 kg DO Crow Dean Work Phone: [facility] 06-06-2019 23:24-0400 Body Temperature 99.61 [degF] Ivett Fan [employer] 06-06-2019 22:00-0400 BP Diastolic 63 mm[Hg] Ivett Fan [employer] 06-06-2019 22:00-0400 BP Systolic 121 mm[Hg] Ivett Fan [employer] 06-06-2019 22:00-0400 Pulse Oximetry 96 % Ivett Fan [employer] 06-06-2019 21:39-0400 BMI (Body Mass Index) 27.89 kg/m2 Ivett Fan [employer] 06-06-2019 21:39-0400 Body weight 90.72 kg Ivett Fan [employer] 06-06-2019 21:39-0400 Height 180.3 cm Ivett Fan [employer] 06-06-2019 21:37-0400 Pulse (Heart Rate) 96 /min Ivett Fan [employer] 06-06-2019 21:37-0400 Respiratory Rate 16 /min Ivett Fan [facility] 06-04-2019 19:06-0400 BMI (Body Mass Index) 27.91 kg/m2 Ivett Fan [employer] 06-04-2019 19:06-0400 Body weight 90.77 kg Ivett Fan [facility] 06-04-2019 19:06-0400 Height 180.3 cm Ivett Fan [employer] 06-04-2019 19:05-0400 Body Temperature 99.3 [degF] Ivett Fan [employer] 06-04-2019 19:05-0400 BP Diastolic 65 mm[Hg] Ivett Fan [employer] 06-04-2019 19:05-0400 BP Systolic 122 mm[Hg] Ivett Fan [facility] 06-04-2019 19:05-0400 Pulse (Heart Rate) 96 /min Ivett Fan [facility] 06-04-2019 19:05-0400 Respiratory Rate 18 /min Ivett Fan [facility] 05-31-2019 23:00-0400 BP Diastolic 71 mm[Hg] Ivett Fan [facility] 05-31-2019 23:00-0400 BP Systolic 107 mm[Hg] Ivett Fan [facility] 05-31-2019 21:55-0400 BMI (Body Mass Index) 30.1 kg/m2 Ivett Fan [facility] 05-31-2019 21:55-0400 Body weight 97.89 kg Ivett Fan [facility] 05-31-2019 21:55-0400 Height 180.3 cm Ivett Fan [facility] 05-31-2019 21:53-0400 Body Temperature 99.61 [degF] Ivett Fna [facility] 05-31-2019 21:53-0400 Pulse (Heart Rate) 98 /min Ivett Fan [facility] 05-31-2019 21:53-0400 Pulse Oximetry 96 % Ivett Fan [facility] 05-31-2019 21:53-0400 Respiratory Rate 18 /min Ivett Fan [facility] 05-26-2019 10:58-0400 BP Diastolic 80 mm[Hg] [facility] 05-26-2019 10:58-0400 BP Systolic 131 mm[Hg] [facility] 05-26-2019 10:58-0400 Pulse (Heart Rate) 61 /min [facility] 05-26-2019 10:58-0400 Pulse Oximetry 97 % [facility] 05-26-2019 10:00-0400 Respiratory Rate 12 /min [facility] 05-26-2019 09:14-0400 BMI (Body Mass Index) 28.45 kg/m2 [facility] 05-26-2019 09:14-0400 Body weight 92.53 kg Sayed Sabek [facility] 05-26-2019 09:14-0400 Height 180.3 cm [facility] 05-26-2019 09:12-0400 Body Temperature 97.59 [degF] [facility] 05-03-2019 11:00-0400 BP Diastolic 68 mm[Hg] [facility] 05-03-2019 11:00-0400 BP Systolic 130 mm[Hg] [facility] [employer] [facility] 05-03-2019 11:00-0400 Pulse Oximetry 99 % [facility] 05-03-2019 09:27-0400 Pulse (Heart Rate) 56 /min [facility] 05-03-2019 08:54-0400 BMI (Body Mass Index) 26.08 kg/m2 [facility] 05-03-2019 08:54-0400 Height 180.3 cm [facility] 05-03-2019 08:54-0400 Weight 84.82 kg [facility] 05-03-2019 08:53-0400 Body Temperature 98.6 [degF] [facility] 05-03-2019 08:53-0400 Respiratory Rate 18 /min [facility] Encounters Encounter Date Encounter Type Care Provider Facility Start: 11-10-2023 End: 11-10-2023 ambulatory CROW DEAN Not Available Start: 08-15-2023 End: 08-15-2023 Emergency department patient visit Crow Dean Facility:[facility] Start: 08-15-2023 End: 08-15-2023 Emergency department patient visit DO Crow Dean Work Phone: [facility] Work Phone: Start: 07-23-2023 End: 07-23-2023 Emergency department patient visit Crow Dean Facility:[facility] Start: 07-22-2023 End: 07-23-2023 Emergency department patient visit DO Crow Dean Work Phone: [facility] Work Phone: Start: 06-30-2023 End: 06-30-2023 Emergency department patient visit Chen Thapa Dave Facility:[facility] Start: 06-30-2023 End: 06-30-2023 Emergency department patient visit DO Crow Dean Work Phone: [facility] Work Phone: Start: 06-24-2023 End: 06-24-2023 Emergency department patient visit Crow Dean Facility:[facility] Start: 06-24-2023 End: 06-24-2023 Emergency department patient visit DO Crow Dean Work Phone: [facility] Work Phone: Start: 05-03-2023 End: 05-05-2023 Evaluation and management of inpatient Eldon Ambriz Facility:[facility] Start: 05-03-2023 End: 05-05-2023 Evaluation and management of inpatient DO Crow Dean Work Phone: [facility] [place] [facility] Work Phone: Start: 01-07-2023 End: 01-08-2023 Emergency department patient visit Crow Dean Facility:[facility] Start: 01-07-2023 End: 01-07-2023 Emergency department patient visit DO Crow Dean Work Phone: [facility]gency [facility] Work Phone: Start: 11-10-2022 End: 11-10-2022 ambulatory Crow Dean Facility:[facility] Start: 11-10-2022 End: 11-10-2022 ambulatory DO Crow Dean Work Phone: [facility] Work Phone: Start: 11-10-2022 End: 11-10-2022 Patient encounter procedure DO Crow Dean Work Phone: [facility]CT [facility] [place] Start: 11-04-2022 End: 11-04-2022 ambulatory Crow Dean Facility:[facility] Start: 11-04-2022 End: 11-04-2022 ambulatory DO Crow Dean Work Phone: [facility] Work Phone: Start: 11-04-2022 End: 11-04-2022 Patient encounter procedure DO Crow Dean Work Phone: [facility] [place] Start: 10-26-2022 End: 10-26-2022 Emergency department patient visit Ladi Nenita Mina Facility:[facility] Start: 10-26-2022 End: 10-26-2022 Emergency department patient visit DO Crow Dean Work Phone: [facility]-Emergency Room Start: 10-13-2022 End: 10-13-2022 Emergency department patient visit Crow Sumanth Facility:[facility] Start: 10-13-2022 End: 10-13-2022 Emergency department patient visit DO Crow Dean Work Phone: [facility] Start: 10-11-2022 End: 10-11-2022 Emergency department patient visit Vimal Thayer Facility:[facility] Start: 10-11-2022 End: 10-11-2022 Emergency department patient visit DO Crow Dean Work Phone: [facility]-Emergency Room Start: 10-01-2019 Patient encounter procedure LOY ABREU [facility] Start: 10-01-2019 End: 10-01-2019 Patient encounter procedure Loy Abreu Work Phone: [facility] Occupational Therapy Comment on above: Tear of ulnar collat eral ligament of right elbow, initial encounter (Primary Dx); Elbow pain, chronic, right Start: 09-25-2019 End: 09-25-2019 Telephone encounter Sofiya Avina Work Phone: [facility] Occupational Therapy Comment on above: Elbow Pain Start: 09-24-2019 Patient encounter procedure LOY ABREU [facility] Start: 09-24-2019 End: 09-24-2019 Patient encounter procedure Loy Abreu Work Phone: [facility] Occupational Therapy Comment on above: Tear of ulnar collat eral ligament of right elbow, initial encounter (Primary Dx); Elbow pain, chronic, right Start: 09-18-2019 End: 09-18-2019 Patient encounter procedure Loy Abreu Work Phone: [employer] Comment on above: Right elbow pain (Pr imary Dx) Start: 08-14-2019 Patient encounter status DO Crow Dean Work Phone: [facility] Start: 06-06-2019 End: 06-07-2019 Emergency department patient visit Ivett Omer' Work Phone: [facility] Emergency Medicine Start: 06-04-2019 End: 06-04-2019 Emergency department patient visit Ivett Omer' Work Phone: [facility] Emergency Medicine Start: 06-01-2019 End: 06-01-2019 Outside Orders Historical Provider [facility] Comment on above: Swelling of right el bow Arrived Start: 05-31-2019 End: 05-31-2019 Emergency department patient visit Ivett Omer' Work Phone: [facility] Emergency Medicine Start: 05-28-2019 End: 05-28-2019 Outside Orders Historical Provider [employer] Start: 05-26-2019 End: 05-26-2019 Emergency department patient visit Leilani Gutierres Shobhasujey Work Phone: [facility] Emergency Medicine Start: 05-03-2019 End: 05-03-2019 Emergency department patient visit Vik Mendosa Work Phone: [facility] Emergency Medicine Start: 11-24-2018 End: 11-25-2018 Emergency department patient visit [facility] Procedures Date Procedure Procedure Detail Performing Clinician Start: 07-23-2023 Plain chest X-ray DO Alexander Dean Work Phone: Start: 06-24-2023 Plain chest X-ray DO Alexander Dean [employer] Phone: Start: 05-03-2023 Ultrasonography of b ilateral kidneys DO Crow Dean [employer] Phone: Start: 05-03-2023 Respiratory Panel (PCR) DO Crow Dean [employer] Phone: Start: 05-03-2023 Plain chest X-ray DO Alexander Dean Work Phone: Start: 01-07-2023 Plain chest X-ray DO Alexander Dean Work Phone: Start: 11-10-2022 CT of head without contrast DO Crow Dean [employer] Phone: Start: 11-10-2022 US scan of gallbladder DO Crow Dean [employer] Phone: Start: 10-26-2022 SARS-CoV-2, Influenz a & RSV (PCR) DO Crow Dean [employer] Phone: Start: 10-26-2022 CT of abdomen and pe lvis without contrast DO Crow Dean [employer] Phone: Start: 10-11-2022 SARS-CoV-2, Influenz a & RSV (PCR) DO Crow Dean [employer] Phone: Start: 10-11-2022 Diagnostic radiograp hy of abdomen DO Crow Dean [employer] Phone: Start: 06-07-2019 Computed tomography of abdomen [...] Start: 06-01-2019 Radiography of elbow Sc catherine Walter Work Phone: Start: 06-01-2019 OUTSIDE RADIOLOGY Histo [...] MICRO W/ REFLEX C AND S Ivett Dion Fan Work Phone: Start: 05-26-2019 Electrocardiogram Histo rical Provider Start: 05-26-2019 Assay of ethanol Sayjorge Monge Work Phone: Start: 05-26-2019 Assay of magnesium Saye d Nenita Monge Work Phone: Start: 05-26-2019 Assay of troponin quantitative Sayjorge Monge Work Phone: Start: 05-26-2019 CBC, EDIF, PLATELET Say ed Nenita Monge Work Phone: Start: 05-26-2019 Comprehensive metabolic panel Sayed Nenita Monge Work Phone: Start: 05-26-2019 Creatine kinase [...] Phone: Start: 05-26-2019 Standard ECG Sayed Nenita Clement anya Work Phone: Start: 05-03-2019 CT of entire head Vikmitchell Dumontmee Work Phone: Start: 05-03-2019 URINALYSIS WITH REFL EX CULTURE Vikmitchell Mendosa Work Phone: Start: 05-03-2019 Urnls dip stick/tabl et reagent auto microscopy Vik L Chilcote Work Phone: Start: 05-03-2019 CBC, EDIF, PLATELET [...] 07-23-2023 Plain chest X-ray XR chest 2V* [facility] Start: 07-23-2023 XR Chest 2 Views [facility] Start: 05-05-2023 [facility] Start: 05-04-2023 Administration of prophylactic treatment [facility] Start: 05-04-2023 Comprehensive metabolic 2000 panel - Serum or Plasma [facility] Start: 05-04-2023 Lipid panel [facility] Start: 05-04-2023 [facility] Start: 05-03-2023 End: 05-03-2023 [facility] Start: 05-03-2023 Ultrasonography of bilateral kidneys US renal BI [facility] Start: 05-03-2023 Hospital admission [facility] Start: 05-03-2023 [facility] Start: 05-03-2023 [facility] Start: 05-03-2023 Respiratory Panel (PCR) Respiratory Panel (PCR) [facility] Start: 10-11-2019 End: 10-11-2019 Rehab Services Visit 10/11/2019 Rehab Services Visit Occupational Therapy Loy Abreu, DO [address] [place] [address] Sam Huang, OT [address] [place] [address] [facility]ational Therapy Start: 10-09-2019 End: 10-09-2019 Rehab Services Visit 10/09/2019 Rehab Services Visit Occupational Therapy Loy Abreu, DO [address] [place] [address] Sofiya Avina, OT [address] [place] [address] [phone] [facility] Occupational Therapy Start: 10-08-2019 End: 10-08-2019 Rehab Services Visit 10/08/2019 Rehab Services Visit Occupational Therapy Loy Abreu, DO [address] [place] [address] Pat Goss [employer] [address] [place] [address] [facility] Start: 10-03-2019 End: 10-03-2019 Rehab Services Visit 10/03/2019 Rehab Services Visit Occupational Therapy Loy Abreu, DO [address] [place] [address] Pat Goss [place] [employer] [address] [place] [address] [facility] Start: 10-01-2019 End: 10-01-2019 Rehab Services Visit 10/01/2019 Rehab Services Visit Occupational Therapy Loy Abreu, DO [address] [place] [address] Pat Goss [place] [employer] [address] [place] [address] [facility] Start: 09-24-2019 End: 09-24-2019 Rehab Services Visit 09/24/2019 Rehab Services Visit Occupational Therapy Loy Abreu, DO [address] [place] [address] [phone] Mona Lynch, OT [address] [place], [place] [id number] [facility] Occupational Therapy Start: 07-29-2019 Influenza vaccination [facility] Start: 2019 Colonoscopy COLON CANCER SCREENING DISCUSSION [facility] Start: 2019 Prostate specific antigen measurement PROSTATE CANCER SCREENING DISCUSSION [facility] Start: 2019 Zoster vaccine hzv live for subcutaneous use ZOSTER (SHINGLES) VACCINE (1 of 2) [facility] Start: 2009 Fasting lipid profile LIPID SCREENING [facility] Start: 1988 Third diphtheria, tetanus and acellular pertussis (DTaP) vaccination TDAP (ADULT) [facility] Start: 1987 Tetanus vaccination TETANUS [facility] Start: 1982 HIV screening HIV SCREENING DISCUSSION [facility] ALCOHOL (ETHANOL),BLOOD ALCOHOL (ETHANOL),BLOOD Lab STAT 05/26/2019 9:48 AM EDT [facility] Patient Education [facility] Work Phone: Patient referral [facility] Work Phone: Immunizations Immunization Date Immunization Notes Care Provider Fa cility 04-18-2020 tetanus toxoid, redu wendi diphtheria toxoid, and acellular pertussis vaccine, adsorbed DO Crow Dean Work Phone: [facility] Payers Date Payer Category Payer Self-pay [id number] 2019 Unknown [id number] 2019 Unknown [place] [facility] OR OTHER ASSISTED [place] OR [place] OR OTHER xxxxxxxxx 2019-Present xxxxxxxxx [id number] 2019 Unknown [id number] 2019 Unknown ANTHEM ANTHEM HM O PPO POS xxxxxxxxxxxx 2019-Present xxxxxxxxxxxx [id number] 2017 Unknown [id number] 1970 Unknown [id number] 2..840.1.005038.3.579.2 .173 1969 Unknown [id number] 2.16.840.1.729421.3.579.2 .111 1969 Unknown [id number] 2..840.1.697899.3.579.2 .111 1969 Unknown [id number] .840.1.177252.3.579.2 .111 1969 Unknown [id number] .840.1.470452.3.579.2 .1259 Medicaid [employer] [id number] Private Health Insurance [facility] Claims-[facility] [id number] Unknown [place] BC/BS [id number] Unknown [id number] .[id number] .531 Unknown [id number] .840.1.861981.3.579.2 .531 Unknown [id number] .840.1.285134.3.579.2 .531 Unknown [id number] .840.1.417012.3.579.2 .531 Unknown [id number] 2.840.1.788852.3.579.2 .531 Unknown [id number] .840.1.481781.3.579.2 .531 Unknown [id number] 2.16.840.1.100459.3.579.2 .531 Unknown [id number] 2.16.840.1.993462.3.579.2 .531 Unknown [id number] 2.16.840.1.621157.3.579.2 .531 Unknown [id number] 2.16.840.1.272791.3.579.2 .531 Unknown [id number] 2.16.840.1.821867.3.579.2 .531 Social History Date Type Detail Facility Start: 05-03-2019 End: 06-30-2023 Tobacco smoking status NHIS Former smoker [facility] Start: 05-03-2019 History SDOH Alcohol Frequency 1 [employer] Sex Assigned At Not on file [email or web address] Start: 05-31-2019 End: 10-11-2022 Tobacco smoking status ORIS Current some day smoker [facility] History of tobacco use Cigar Smoker [employer] Start: 05-31-2019 History SDOH Alcohol Frequency 3 [facility] Start: 06-06-2019 Alcohol intake Yes [employer] Start: 06-06-2019 Alcohol intake Current drinke r of alcohol (finding) [employer] Start: 1970 Sex Assigned At Male F [facility] Start: 10-26-2022 End: 05-03-2023 Tobacco smoking status ORIS Never smoked tobacco (finding) [facility] Start: 01-07-2023 End: 08-15-2023 Tobacco smoking status ORIS Smoker (finding) [facility] Medical Equipment Procedure Code Equipment Code Equipment Origin al Text Equipment Identifier Dates Discectomy, lumbar Bone-screw internal spinal fixation system, non-sterile [id number] FDA Start: 04-18-2020 Discectomy, lumbar Bone-screw internal spinal fixation system, non-sterile ()[id number] FDA Start: 04-18-2020 Discectomy, lumbar Bone-screw internal spinal fixation system, non-sterile ()[id number] FDA Start: 04-18-2020 Discectomy, lumbar Bone-screw internal spinal fixation system, non-sterile ()[id number] FDA Start: 04-18-2020 Discectomy, lumbar Bone-screw internal spinal fixation system, non-sterile [id number] FDA Start: 04-18-2020 MAS REDUCTION FIXATION ADD [...] & improved independence with ADL's/ IADL's. All group home goals to be met in 6 weeks. Patient will report decreased pain levels no greater than a 1 during activity/ use and no night waking over a 5 day period. Patient will increase AROM of elbow and forearm to at least 0 extension of elbow and 80 supination for increased functional use with ADL's/ IADL's.. Patient will demonstrate increased strength of right polishing pad mounter to at least a 70 for increased [...] Facility 05-05-2023 Functional status Patient at Baseline [facility] Work Phone: Mental Status Date Assessment Result Facility 05-05-2023 Cognitive function Cognitive Sta tus Patient at Baseline [facility] Work Phone: Evaluation note Note Date & Type Note Facility Evaluation note No assessment information availa ble [facility] Work Phone: Evaluation note Note Date & Type Note Facility Evaluation note Diagnosis Onset Date Abdominal pain acute Acute kidney injury acute Acute prerenal azotemia acut e Diabetes acute Intractable nausea and vomiting acute [facility] Work Phone: History and physical note Note Date & Type Note Facility History and physical note Note Date/Time May 03, 2023 9:02pm [facility] [address] [place] [address] Hospitalist H&P Signed 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 MR#: [id number] : 1970 Acct:[id number] Age/Sex: 52 / M Adm Date: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
== END 2023-12-26 14:14 | disposition home or self-care (01) ==
LOC: PST 14:13
PROVIDERS: Visit Provider Surgery
DX: Z01.818 Encounter for other preprocedural examination (principal); K52.9 Noninfective gastroenteritis and colitis, unspecified; R11.2 Nausea with vomiting, unspecified

== ENCOUNTER 2024-01-04 07:35 | Day surgery (SDC) | payer OTHER, SELFPAY ==
--- OUTSIDE RECORDS SUMMARY | 2024-01-04 07:41 | XMS_ITS | CCD ---
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 Name Role Phone Unavailable Primary Care Provider UnavailWALTER Fallon Attending Unavailable LOY ABREU Attending Unavailable LOY ABREU Referring Unavailable LOY ABREU Attending Unavailable LOY ABREU Referring Unavailable DO Crow Dean Primary Care Provider MD Vimal Thayer Emergency Provider DO Grayson Duvall Emergency Provider Keeley [facility] Ladi Gutierres Emergency Provider DO Crow Dean Attending Provider MD Loy Nicholson Emergency Provider DO Crow Dean Primary Care Provider CHAPARRO Burrows Emergency Provider [phone] MD Eldon Ambriz Admit Provider MD Eldon Ambriz Attending Provider DO Bucky Cheng Emergency Provider DO Chen Stewart Emergency Provider DO Grayson Duvall Emergency Provider [phone] DO Crow Dean Primary Care Provider Eldon Ambriz Attending Unavailab le Crow Dean Primary [facility] Unavailable Eldon Ambriz Admitting Unavailab Crow [facility] Unavailable Crow Dean Attending Unavailable Crow [...] Unavailable Vimal Thayer Attending Unavailable Sumanth Crow [facility] Unavailable Sumanth Crow [facility] Unavailable Grayson Duvall Admitting Unavailable Grayson Duvall Attending Unavailable Ladi Mina Admitting Unavailable Ladi Mina Attending Unavailable Sumanth Crow [facility] Unavailable Sumanth Crow [facility] Unavailable Crow Dean Attending Unavailable Crow [...] 10-11-2022 Episodic Other aftercare (1 source) Other buttermaker (current) drug therapy; Translations: [Other half-way (current) drug therapy] Onset: 11-04-2022 Episodic Other [...] 08-15-2023 ALT [Catalytic activity/Vol] 13 U/L 7-52 [facility] Albumin [Mass/volume] in Ser um or Plasma by Bromocresol green (BCG) dye binding methoOrdered By: Kourtney Samson on 08-15-2023 Albumin BCG dye [Mass/Vol] 4.3 g/dL 3.5-5.7 [facility] Alkaline phosphatase [Enzyma tic activity/volume] in Serum or PlasmaOrdered By: Kourtney Samson on 08-15-2023 ALP [Catalytic activity/Vol] 66 U/L 34-104 [facility] Aspartate aminotransferase [ Enzymatic activity/volume] in Serum or PlasmaOrdered By: Kourtney Samson on 08-15-2023 AST [Catalytic activity/Vol] 10 U/L 13-39 [facility] Basic Metabolic Panelon 07-29 Anion gap [Moles/Vol] 11.8 mmol/L Normal 6.0-15.0 [facility] Comment on above: Performed By: #### R AUDRA PANEL UPP., BIOFIRECOVNOTDE #### [facility] [address] Calcium [Mass/Vol] 9.3 mg/dL Normal 8.6-10.3 [facility] Comment on above: Performed By: #### R AUDRA PANEL UPP., BIOFIRECOVNOTDE #### [facility] [address] [place] [address] [place] Chloride [Moles/Vol] 97 mmol/L Low 98-107 [facility] Comment on above: Performed By: #### R AUDRA PANEL UPP., BIOFIRECOVNOTDE #### [facility] [address] [place] [address] [place] CO2 [Moles/Vol] 30.3 mmol/L Normal 21.0-31.0 [facility] Comment on above: Performed By: #### R AUDRA PANEL UPP., BIOFIRECOVNOTDE #### [facility] [address] [place] [address] [place] Creatinine [Mass/Vol] 1.30 mg/dL Normal 0.70-1.30 [facility] Comment on above: Performed By: #### R AUDRA PANEL UPP., BIOFIRECOVNOTDE #### [facility] [address] [place] [address] [place] Creatinine Clr Calc Pharmacy 69.19 [facility] Comment on above: Performed By: #### R AUDRA PANEL UPP., BIOFIRECOVNOTDE #### [facility] [address] [place] [address] [place] GFR/1.73 sq M.predicted MDRD (S/P/Bld) [Vol rate/Area] mL/min/{1.73_m2} Normal [facility] Comment on above: Performed By: #### R AUDRA PANEL UPP., BIOFIRECOVNOTDE #### [facility] [address] [place] [address] [place] Glucose [Mass/Vol] 181 mg/dL High 70-100 [facility] Comment on above: Result Comment: [facility] Glucose Reference Range is dependent on time and content of last meal. Glucose of more than 200 mg/dL in a nonstressed, ambulatory subject supports the diagnosis of Diabetes Mellitus. ADA recommended reference range Performed By: #### R AUDRA PANEL UPP., BIOFIRECOVNOTDE #### [facility] [address] [place] [address] Potassium [Moles/Vol] 4.1 mmol/L Normal 3.5-5.1 [facility] Comment on above: Performed By: #### R AUDRA PANEL UPP., BIOFIRECOVNOTDE #### [address] Sodium [Moles/Vol] 135 mmol/L Low 136-145 [facility] Comment on above: Performed By: #### R AUDRA PANEL UPP., BIOFIRECOVNOTDE #### [address] Urea nitrogen [Mass/Vol] 23 mg/dL Normal 7-25 [facility] Comment on above: Performed By: #### R AUDRA PANEL UPP., BIOFIRECOVNOTDE #### [facility] [address] [place] [address] [place] Basophils Auto (Bld) [#/Vol] Ordered By: Kourtney Samson on 08-15-2023 Basophils (Bld) [#/Vol] 0.1 10*3/uL 0.0-0.2 [facility] Basophils/100 WBC Auto (Bld) Ordered By: Kourtney Samson on 08-15-2023 Basophils/100 WBC (Bld) 0.9 % . [facility] Bilirubin.direct [Mass/volum e] in Serum or PlasmaOrdered By: Kourtney Samson on 08-15-2023 Bilirubin.direct [Mass/Vol] 0.20 mg/dL 0.03-0.18 [facility] Bilirubin.total [Mass/volume ] in Serum or PlasmaOrdered By: Kourtney Samson on 08-15-2023 Bilirubin [Mass/Vol] 1.1 mg/dL 0.3-1.0 [facility] Calcium [Mass/volume] in Ser um or PlasmaOrdered By: Kourtney Samson on 08-15-2023 Calcium [Mass/Vol] 9.3 mg/dL 8.6-10.3 [facility] Carbon dioxide, total [Moles /volume] in Serum or PlasmaOrdered By: Kourtney Samson on 08-15-2023 CO2 [Moles/Vol] 30.3 mmol/L 21.0-31.0 [facility] Chloride [Moles/volume] in S tino or PlasmaOrdered By: Kourtney Samson on 08-15-2023 Chloride [Moles/Vol] 97 mmol/L 98-107 [facility] Complete Blood Count Auto Di ffon 08-15-2023 Basophils (Bld) [#/Vol] 0.1 10*3/uL Normal 0.0-0.2 [facility] Comment on above: Result Comment: PERF ORMED BY: [place] [address] PATHOLOGIST CRATE BUILDER ANIL GUAMAN M.D. Performed By: #### C BC, LIPASE, HEPATIC, BMP #### [facility] [address] [place] [address] [place] Basophils/100 WBC (Bld) 0.9 % Normal . [facility] Comment on above: Performed By: #### C BC, LIPASE, HEPATIC, BMP #### [facility] [address] [place] [address] [place] Eosinophils (Bld) [#/Vol] 0.1 10*3/uL Normal 0.0-0.45 [facility] Comment on above: Performed By: #### C BC, LIPASE, HEPATIC, BMP #### [facility] [address] [place] [address] [place] Eosinophils/100 WBC (Bld) 1.6 % Normal . [facility] Comment on above: Performed By: #### C BC, LIPASE, HEPATIC, BMP #### [address] Erythrocyte distribution width (RBC) [Ratio] 13.6 % Normal 12.0-14.8 [facility] Comment on above: Performed By: #### C BC, LIPASE, HEPATIC, BMP #### [address] Hematocrit (Bld) [Volume fraction] 40.9 % Normal 38.8-50.0 [facility] Comment on above: Performed By: #### C BC, LIPASE, HEPATIC, BMP #### [address] Hemoglobin (Bld) [Mass/Vol] 14.3 g/dL Normal 13.0-17.0 [facility] Comment on above: Performed By: #### C BC, LIPASE, HEPATIC, BMP #### [address] Lymphocytes (Bld) [#/Vol] 2.4 10*3/uL Normal 1.00-4.8 [facility] Comment on above: Performed By: #### C BC, LIPASE, HEPATIC, BMP #### [address] Lymphocytes/100 WBC (Bld) 38.6 % Normal . [facility] Comment on above: Performed By: #### C BC, LIPASE, HEPATIC, BMP #### [address] MCH (RBC) [Entitic mass] 32.8 pg Normal 27.5-35.2 [facility] Comment on above: Performed By: #### C BC, LIPASE, HEPATIC, BMP #### [address] MCV (RBC) [Entitic vol] 94.0 fL Normal 83.5-101 [facility] Comment on above: Performed By: #### C BC, LIPASE, HEPATIC, BMP #### [facility] [address] Mean Corpuscular HGB Conc 34.9 g/dL Normal 32.5-35.6 [facility] Comment on above: Performed By: #### C BC, LIPASE, HEPATIC, BMP #### [facility] [address] Monocytes (Bld) [#/Vol] 0.4 10*3/uL Normal 0.0-0.8 [facility] Comment on above: Performed By: #### C BC, LIPASE, HEPATIC, BMP #### [facility] [address] [place] [address] [place] Monocytes/100 WBC (Bld) 17.28 % Normal 0.00-20.00 [facility] Comment on above: Performed By: #### C BC, LIPASE, HEPATIC, BMP #### [facility] [address] [place] [address] [place] Monocytes/100 WBC (Bld) 7.2 % Normal . [facility] Comment on above: Performed By: #### C BC, LIPASE, HEPATIC, BMP #### [facility] [address] [place] [address] [place] Neutrophils (Bld) [#/Vol] 3.2 10*3/uL Normal 1.8-7.7 [facility] Comment on above: Performed By: #### C BC, LIPASE, HEPATIC, BMP #### [place] [address] [place] Neutrophils/100 WBC (Bld) 51.7 % Normal . [facility] Comment on above: Performed By: #### C BC, LIPASE, HEPATIC, BMP #### [facility] [address] [place] [address] [place] NRBC% 0.1 /100{WBC} Normal 0-0.5 [facility] Comment on above: Performed By: #### C BC, LIPASE, HEPATIC, BMP #### [facility] [address] Platelet mean volume (Bld) [Entitic vol] 8.3 fL Normal 6.6-10.1 [facility] Comment on above: Performed By: #### C BC, LIPASE, HEPATIC, BMP #### [facility] [address] Platelets (Bld) [#/Vol] 202 10*3/uL Normal 150-450 [facility] Comment on above: Performed By: #### C BC, LIPASE, HEPATIC, BMP #### [facility] [address] RBC (Bld) [#/Vol] 4.35 10*6/uL Normal 3.90-5.60 [facility] Comment on above: Performed By: #### C BC, LIPASE, HEPATIC, BMP #### [facility] [address] WBC (Bld) [#/Vol] 6.2 10*3/uL Normal 4.1-10.5 [facility] Comment on above: Performed By: #### C BC, LIPASE, HEPATIC, BMP #### [facility] [address] Creatinine [Mass/volume] in Serum or PlasmaOrdered By: Kourtney Samson on 08-15-2023 Creatinine [Mass/Vol] 1.30 mg/dL 0.70-1.30 [facility] Eosinophils Auto (Bld) [#/Vo l]Ordered By: Kourtney Samson on 08-15-2023 Eosinophils (Bld) [#/Vol] 0.1 10*3/uL 0.0-0.45 [facility] Eosinophils/100 WBC Auto (Bl d)Ordered By: Kourtney Samson on 08-15-2023 Eosinophils/100 WBC (Bld) 1.6 % . [facility] Erythrocyte distribution wid th Auto (RBC) [Ratio]Ordered By: Kourtney Samson on 08-15-2023 Erythrocyte distribution width (RBC) [Ratio] 13.6 % 12.0-14.8 [facility] Globulin Calc (S) [Mass/Vol] Ordered By: Kourtney Samson on 08-15-2023 Globulin (S) [Mass/Vol] 3.3 g/dL [facility] Glucose [Mass/volume] in Ser um or PlasmaOrdered By: Kourtney Samson on 08-15-2023 Glucose [Mass/Vol] 181 mg/dL 70-100 [facility] Comment on above: ADA recommended refe rence rangeRandom Glucose Reference Range is dependent on time and content of last meal. Glucose of more than 200 mg/dL in a nonstressed, ambulatory subject supports the diagnosis of Diabetes Mellitus. Hematocrit Auto (Bld) [Volum e fraction]Ordered By: Kourtney Samson on 08-15-2023 Hematocrit (Bld) [Volume fraction] 40.9 % 38.8-50.0 [facility] Hemoglobin [Mass/volume] in BloodOrdered By: Kourtney Samson on 08-15-2023 Hemoglobin (Bld) [Mass/Vol] 14.3 g/dL 13.0-17.0 [facility] Hepatic Panelon 08-15-2023 Albumin [Mass/Vol] 4.3 g/dL Normal 3.5-5.7 [facility] Comment on above: Performed By: #### C BC, LIPASE, HEPATIC, BMP #### [facility] [address] Albumin/Globulin [Mass ratio] 1.3 {ratio} Normal [facility] Comment on above: Performed By: #### C BC, LIPASE, HEPATIC, BMP #### [facility] [address] ALP [Catalytic activity/Vol] 66 U/L Normal 34-104 [facility] Comment on above: Performed By: #### C BC, LIPASE, HEPATIC, BMP #### [facility] [address] [place] [id number] [place] ALT [Catalytic activity/Vol] 13 U/L Normal 7-52 [facility] Comment on above: Performed By: #### C BC, LIPASE, HEPATIC, BMP #### [facility] [address] [place] [id number] [place] AST [Catalytic activity/Vol] 10 U/L Low 13-39 [facility] Comment on above: Performed By: #### C BC, LIPASE, HEPATIC, BMP #### [facility] [address] [place] [id number] [place] Bilirubin [Mass/Vol] 1.1 mg/dL High 0.3-1.0 [facility] Comment on above: Performed By: #### C BC, LIPASE, HEPATIC, BMP #### [facility] [address] Bilirubin,Indirect 0.9 mg/dL Normal [facility] Comment on above: Performed By: #### C BC, LIPASE, HEPATIC, BMP #### [address] Bilirubin.indirect [Mass/Vol] 0.20 mg/dL High 0.03-0.18 [facility] Comment on above: Performed By: #### C BC, LIPASE, HEPATIC, BMP #### [address] Globulin (S) [Mass/Vol] 3.3 g/dL Normal [facility] Comment on above: Performed By: #### C BC, LIPASE, HEPATIC, BMP #### [address] Protein [Mass/Vol] 7.6 g/dL Normal 6.4-8.9 [facility] Comment on above: Performed By: #### C BC, LIPASE, HEPATIC, BMP #### [address] Leukocytes [#/volume] correc billy for nucleated erythrocytes in Blood by Automated counOrdered By: Kourtney Samson on 08-15-2023 WBC corrected for nucl RBC Auto (Bld) [#/Vol] 6.2 10*3/uL 4.1-10.5 [facility] Lipaseon 08-15-2023 Lipase [Catalytic activity/Vol] 59.0 U/L Normal 11.0-82.0 [facility] Comment on above: Result Comment: PERF ORMED BY: [place] [address] PATHOLOGIST CRATE BUILDER ANIL GUAMAN M.D. Performed By: #### R AUDRA PANEL UPP., BIOFIRECOVNOTDE #### [place] [address] [facility] Lipase [Enzymatic activity/v olume] in Serum or PlasmaOrdered By: Kourtney Samson on 08-15-2023 Lipase [Catalytic activity/Vol] 59.0 U/L 11.0-82.0 [facility] Lymphocytes Auto (Bld) [#/Vo l]Ordered By: Kourtney Samson on 08-15-2023 Lymphocytes (Bld) [#/Vol] 2.4 10*3/uL 1.00-4.8 [facility] Lymphocytes/100 WBC Auto (Bl d)Ordered By: Kourtney Samson on 08-15-2023 Lymphocytes/100 WBC (Bld) 38.6 % . [facility] MCH Auto (RBC) [Entitic mass ]Ordered By: Kourtney Samson on 08-15-2023 MCH (RBC) [Entitic mass] 32.8 pg 27.5-35.2 [facility] MCHC Auto (RBC) [Mass/Vol]Or dered By: Kourtney Samson on 08-15-2023 MCHC (RBC) [Mass/Vol] 34.9 g/dL 32.5-35.6 [facility] MCV Auto (RBC) [Entitic vol] Ordered By: Kourtney Samson on 08-15-2023 MCV (RBC) [Entitic vol] 94.0 fL 83.5-101 [facility] Monocyte distribution width [Entitic volume] in Blood by AutomatedOrdered By: Kourtney Samson on 08-15-2023 Monocyte distribution width Auto (Bld) [Entitic vol] 17.28 % 0.00-20.00 [facility] Monocytes Auto (Bld) [#/Vol] Ordered By: Kourtney Samson on 08-15-2023 Monocytes (Bld) [#/Vol] 0.4 10*3/uL 0.0-0.8 [facility] Monocytes/100 WBC Auto (Bld) Ordered By: Kourtney Samson on 08-15-2023 Monocytes/100 WBC (Bld) 7.2 % . [facility] Neutrophils Auto (Bld) [#/Vo l]Ordered By: Kourtney Sasmon on 08-15-2023 Neutrophils (Bld) [#/Vol] 3.2 10*3/uL 1.8-7.7 [facility] Neutrophils/100 WBC Auto (Bl d)Ordered By: Kourtney Samson on 08-15-2023 Neutrophils/100 WBC (Bld) 51.7 % . [facility] No Panel InformationOrdered By: Kourtney Samson on 08-15-2023 Estimated GFR (CKD-EPI) > 60.0 mL/Min [facility] Creatinine Clearance (Chem 69.19 [facility] Nucleated erythrocytes [Pres ence] in Blood by Automated countOrdered By: Kourtney Samson on 08-15-2023 Nucleated RBC Auto Ql (Bld) 0.1 /100{WBC} 0-0.5 [facility] Platelet mean volume Auto (B ld) [Entitic vol]Ordered By: Kourtney Samson on 08-15-2023 Platelet mean volume (Bld) [Entitic vol] 8.3 fL 6.6-10.1 [facility] Platelets Auto (Bld) [#/Vol] Ordered By: Kourtney Samson on 08-15-2023 Platelets (Bld) [#/Vol] 202 10*3/uL 150-450 [facility] Potassium [Moles/volume] in Serum or PlasmaOrdered By: Kourtney Samson on 08-15-2023 Potassium [Moles/Vol] 4.1 mmol/L 3.5-5.1 [facility] Protein [Mass/volume] in Ser um or PlasmaOrdered By: Kourtney Samson on 08-15-2023 Protein [Mass/Vol] 7.6 g/dL 6.4-8.9 [facility] RBC Auto (Bld) [#/Vol]Ordere d By: Kourtney Samson on 08-15-2023 RBC (Bld) [#/Vol] 4.35 10*6/uL 3.90-5.60 [facility] Serum or plasma albumin/glob ulin mass ratioOrdered By: Kourtney Samson on 08-15-2023 Albumin/Globulin [Mass ratio] 1.3 {ratio} [facility] Serum or plasma anion gap de terminationOrdered By: Kourtney Samson on 08-15-2023 Anion gap [Moles/Vol] 11.8 mmol/L 6.0-15.0 [facility] Serum or plasma non-glucuron idated bilirubin measurement (mass/volume)Ordered By: Kourtney Samson on 08-15-2023 Bilirubin.indirect [Mass/Vol] 0.9 mg/dL [facility] Sodium [Moles/volume] in Ser um or PlasmaOrdered By: Kourtney Samson on 08-15-2023 Sodium [Moles/Vol] 135 mmol/L 136-145 [facility] Urea nitrogen [Mass/volume] in Serum or PlasmaOrdered By: Kourtney Samson on 08-15-2023 Urea nitrogen [Mass/Vol] 23 mg/dL 7-25 [facility] WBC Auto (Bld) [#/Vol]Ordere d By: Kourtney Samson on 08-15-2023 WBC (Bld) [#/Vol] 6.2 10*3/uL 4.1-10.5 [facility] Alanine aminotransferase [En zymatic activity/volume] in Serum or PlasmaOrdered By: Grayson Duvall on 07-23-2023 ALT [Catalytic activity/Vol] 19 U/L 7-52 [facility] Albumin [Mass/volume] in Ser um or Plasma by Bromocresol green (BCG) dye binding methoOrdered By: Grayson Duvall on 07-23-2023 Albumin BCG dye [Mass/Vol] 4.7 g/dL 3.5-5.7 [facility] Alkaline phosphatase [Enzyma tic activity/volume] in Serum or PlasmaOrdered By: Grayson Duvall on 07-23-2023 ALP [Catalytic activity/Vol] 65 U/L 34-104 [facility] Aspartate aminotransferase [ Enzymatic activity/volume] in Serum or PlasmaOrdered By: Grayson Duvall on 07-23-2023 AST [Catalytic activity/Vol] 16 U/L 13-39 [facility] Basophils Auto (Bld) [#/Vol] Ordered By: Grayson Duvall on 07-23-2023 Basophils (Bld) [#/Vol] 0.1 10*3/uL 0.0-0.2 [facility] Basophils/100 WBC Auto (Bld) Ordered By: Grayson Duvall on 07-23-2023 Basophils/100 WBC (Bld) 0.8 % . [facility] Bilirubin.total [Mass/volume ] in Serum or PlasmaOrdered By: Grayson Duvall on 07-23-2023 Bilirubin [Mass/Vol] 0.8 mg/dL 0.3-1.0 [facility] Calcium [Mass/volume] in Ser um or PlasmaOrdered By: Grayson Duvall on 07-23-2023 Calcium [Mass/Vol] 9.3 mg/dL 8.6-10.3 [facility] Carbon dioxide, total [Moles /volume] in Serum or PlasmaOrdered By: Grayson Duvall on 07-23-2023 CO2 [Moles/Vol] 28.5 mmol/L 21.0-31.0 [facility] Chloride [Moles/volume] in S tino or PlasmaOrdered By: Grayson Duvall on 07-23-2023 Chloride [Moles/Vol] 95 mmol/L 98-107 [facility] Complete Blood Count Auto Di ffon 07-23-2023 Basophils (Bld) [#/Vol] 0.1 10*3/uL Normal 0.0-0.2 [facility] Comment on above: Result Comment: PERF ORMED BY: [place] [address] PATHOLOGIST [employer] BUILDER ANIL GUAMAN M.D. Performed By: #### C MP, TSH3, LIPID #### [facility] [address] Basophils/100 WBC (Bld) 0.8 % Normal . [facility] Comment on above: Performed By: #### C MP, TSH3, LIPID #### [facility] [address] [place] [address] [place] Eosinophils (Bld) [#/Vol] 0.1 10*3/uL Normal 0.0-0.45 [facility] Comment on above: Performed By: #### C MP, TSH3, LIPID #### [facility] [address] [place] [address] [place] Eosinophils/100 WBC (Bld) 1.1 % Normal . [facility] Comment on above: Performed By: #### C MP, TSH3, LIPID #### [address] Erythrocyte distribution width (RBC) [Ratio] 13.1 % Normal 12.0-14.8 [facility] Comment on above: Performed By: #### C MP, TSH3, LIPID #### [address] Hematocrit (Bld) [Volume fraction] 39.0 % Normal 38.8-50.0 [facility] Comment on above: Performed By: #### C MP, TSH3, LIPID #### [address] Hemoglobin (Bld) [Mass/Vol] 13.6 g/dL Normal 13.0-17.0 [facility] Comment on above: Performed By: #### C MP, TSH3, LIPID #### [address] Lymphocytes (Bld) [#/Vol] 2.2 10*3/uL Normal 1.00-4.8 [facility] Comment on above: Performed By: #### C MP, TSH3, LIPID #### [address] Lymphocytes/100 WBC (Bld) 23.0 % Normal . [facility] Comment on above: Performed By: #### C MP, TSH3, LIPID #### [address] MCH (RBC) [Entitic mass] 32.5 pg Normal 27.5-35.2 [facility] Comment on above: Performed By: #### C MP, TSH3, LIPID #### [address] MCV (RBC) [Entitic vol] 93.2 fL Normal 83.5-101 [facility] Comment on above: Performed By: #### C MP, TSH3, LIPID #### [address] Mean Corpuscular HGB Conc 34.8 g/dL Normal 32.5-35.6 [facility] Comment on above: Performed By: #### C MP, TSH3, LIPID #### [facility] [address] [place] [address] [place] Monocytes (Bld) [#/Vol] 0.6 10*3/uL Normal 0.0-0.8 [facility] Comment on above: Performed By: #### C MP, TSH3, LIPID #### [facility] [address] [place] [address] [place] Monocytes/100 WBC (Bld) 18.02 % Normal 0.00-20.00 [facility] Comment on above: Performed By: #### C MP, TSH3, LIPID #### [facility] [address] [place] [address] [place] Monocytes/100 WBC (Bld) 6.7 % Normal . [facility] Comment on above: Performed By: #### C MP, TSH3, LIPID #### [facility] [address] [place] [address] [place] Neutrophils (Bld) [#/Vol] 6.5 10*3/uL Normal 1.8-7.7 [facility] Comment on above: Performed By: #### C MP, TSH3, LIPID #### [facility] [address] [place] [address] [place] Neutrophils/100 WBC (Bld) 68.4 % Normal . [facility] Comment on above: Performed By: #### C MP, TSH3, LIPID #### [facility] [address] [place] [address] [place] NRBC% 0.0 /100{WBC} Normal 0-0.5 [facility] Comment on above: Performed By: #### C MP, TSH3, LIPID #### [facility] [address] [place] [address] [place] Platelet mean volume (Bld) [Entitic vol] 8.5 fL Normal 6.6-10.1 [facility] Comment on above: Performed By: #### C MP, TSH3, LIPID #### [facility] [address] [place] [address] [place] Platelets (Bld) [#/Vol] 235 10*3/uL Normal 150-450 [facility] Comment on above: Performed By: #### C MP, TSH3, LIPID #### [facility] [address] [place] [address] RBC (Bld) [#/Vol] 4.18 10*6/uL Normal 3.90-5.60 [facility] Comment on above: Performed By: #### C MP, TSH3, LIPID #### [address] WBC (Bld) [#/Vol] 9.5 10*3/uL Normal 4.1-10.5 [facility] Comment on above: Performed By: #### C MP, TSH3, LIPID #### [address] Comprehensive Metabolic Pane rudolph 07-23-2023 Albumin [Mass/Vol] 4.7 g/dL Normal 3.5-5.7 [facility] Comment on above: Performed By: #### C MP, TSH3, LIPID #### [address] Albumin/Globulin [Mass ratio] 1.4 {ratio} Normal [facility] Comment on above: Performed By: #### C MP, TSH3, LIPID #### [address] ALP [Catalytic activity/Vol] 65 U/L Normal 34-104 [facility] Comment on above: Performed By: #### C MP, TSH3, LIPID #### [address] ALT [Catalytic activity/Vol] 19 U/L Normal 7-52 [facility] Comment on above: Performed By: #### C MP, TSH3, LIPID #### [address] Anion gap [Moles/Vol] 16.3 mmol/L High 6.0-15.0 [facility] Comment on above: Performed By: #### C MP, TSH3, LIPID #### [address] [place] [address] [place] AST [Catalytic activity/Vol] 16 U/L Normal 13-39 [facility] Comment on above: Performed By: #### C MP, TSH3, LIPID #### [facility] [address] Bilirubin [Mass/Vol] 0.8 mg/dL Normal 0.3-1.0 [facility] Comment on above: Performed By: #### C MP, TSH3, LIPID #### [facility] [address] Calcium [Mass/Vol] 9.3 mg/dL Normal 8.6-10.3 [facility] Comment on above: Performed By: #### C MP, TSH3, LIPID #### [facility] [address] Chloride [Moles/Vol] 95 mmol/L Low 98-107 [facility] Comment on above: Performed By: #### C MP, TSH3, LIPID #### [address] CO2 [Moles/Vol] 28.5 mmol/L Normal 21.0-31.0 [facility] Comment on above: Performed By: #### C MP, TSH3, LIPID #### [address] Creatinine [Mass/Vol] 1.08 mg/dL Normal 0.70-1.30 [facility] Comment on above: Performed By: #### C MP, TSH3, LIPID #### [facility] [address] [place] [address] [place] Creatinine Clr Calc Pharmacy 83.28 Normal [facility] Comment on above: Result Comment: PERF ORMED BY: [place] [address] PATHOLOGIST [employer] ANIL GUAMAN M.D. Performed By: #### C MP, TSH3, LIPID #### [place] [address] [place] GFR/1.73 sq M.predicted MDRD (S/P/Bld) [Vol rate/Area] mL/min/{1.73_m2} Normal [facility] Comment on above: Performed By: #### C MP, TSH3, LIPID #### [address] Globulin (S) [Mass/Vol] 3.3 g/dL Normal [facility] Comment on above: Performed By: #### C MP, TSH3, LIPID #### [address] Glucose [Mass/Vol] 164 mg/dL High 70-100 [facility] Comment on above: Result Comment: [facility] Glucose Reference Range is dependent on time and content of last meal. Glucose of more than 200 mg/dL in a nonstressed, ambulatory subject supports the diagnosis of Diabetes Mellitus. ADA recommended reference range Performed By: #### C MP, TSH3, LIPID #### [address] Potassium [Moles/Vol] 3.8 mmol/L Normal 3.5-5.1 [facility] Comment on above: Performed By: #### C MP, TSH3, LIPID #### [address] Protein [Mass/Vol] 8.0 g/dL Normal 6.4-8.9 [facility] Comment on above: Performed By: #### C MP, TSH3, LIPID #### [address] Sodium [Moles/Vol] 136 mmol/L Normal 136-145 [facility] Comment on above: Performed By: #### C MP, TSH3, LIPID #### [place] [address] [place] Urea nitrogen [Mass/Vol] 14 mg/dL Normal 7-25 [facility] Comment on above: Performed By: #### C MP, TSH3, LIPID #### [place] [address] [place] Creatinine [Mass/volume] in Serum or PlasmaOrdered By: Grayson Duvall on 07-23-2023 Creatinine [Mass/Vol] 1.08 mg/dL 0.70-1.30 [facility] ECG 12 lead ECGon 07-23-2023 ECG 12 lead ECG [facility] Main [place] [address] [place], [place] [id number] Electrocardiograph Report Signed 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 MR#: [id number] : 1970 Acct:[id number] Age/Sex: 53 / M ADM Date: 07/22/23 Loc: ER Room: Type: [facility] ER Attending Dr: Ordering Provider: Grayson Duvall [...] Signed By Grayson Duvall DO 0517 Normal [facility] Eosinophils Auto (Bld) [#/Vo l]Ordered By: Grayson Duvall on 07-23-2023 Eosinophils (Bld) [#/Vol] 0.1 10*3/uL 0.0-0.45 [facility] Eosinophils/100 WBC Auto (Bl d)Ordered By: Grayson Duvall on 07-23-2023 Eosinophils/100 WBC (Bld) 1.1 % . [facility] Erythrocyte distribution wid th Auto (RBC) [Ratio]Ordered By: Grayson Duvall on 07-23-2023 Erythrocyte distribution width (RBC) [Ratio] 13.1 % 12.0-14.8 [facility] Globulin Calc (S) [Mass/Vol] Ordered By: Grayson Duvall on 07-23-2023 Globulin (S) [Mass/Vol] 3.3 g/dL [facility] Glucose [Mass/volume] in Ser um or PlasmaOrdered By: Grayson Duvall on 07-23-2023 Glucose [Mass/Vol] 164 mg/dL 70-100 [facility] Comment on above: ADA recommended refe rence rangeRandom Glucose Reference Range is dependent on time and content of last meal. Glucose of more than 200 mg/dL in a nonstressed, ambulatory subject supports the diagnosis of Diabetes Mellitus. Hematocrit Auto (Bld) [Volum e fraction]Ordered By: Grayson Duvall on 07-23-2023 Hematocrit (Bld) [Volume fraction] 39.0 % 38.8-50.0 [facility] Hemoglobin [Mass/volume] in BloodOrdered By: Grayson Duvall on 07-23-2023 Hemoglobin (Bld) [Mass/Vol] 13.6 g/dL 13.0-17.0 [facility] Leukocytes [#/volume] correc billy for nucleated erythrocytes in Blood by Automated counOrdered By: Grayson Duvall on 07-23-2023 WBC corrected for nucl RBC Auto (Bld) [#/Vol] 9.5 10*3/uL 4.1-10.5 [facility] Lymphocytes Auto (Bld) [#/Vo l]Ordered By: Grayson Duvall on 07-23-2023 Lymphocytes (Bld) [#/Vol] 2.2 10*3/uL 1.00-4.8 [facility] Lymphocytes/100 WBC Auto (Bl d)Ordered By: Grayson Duvall on 07-23-2023 Lymphocytes/100 WBC (Bld) 23.0 % . [facility] MCH Auto (RBC) [Entitic mass ]Ordered By: Grayson Duvall on 07-23-2023 MCH (RBC) [Entitic mass] 32.5 pg 27.5-35.2 [facility] MCHC Auto (RBC) [Mass/Vol]Or dered By: Grayson Duvall on 07-23-2023 MCHC (RBC) [Mass/Vol] 34.8 g/dL 32.5-35.6 [facility] MCV Auto (RBC) [Entitic vol] Ordered By: Grayson Duvall on 07-23-2023 MCV (RBC) [Entitic vol] 93.2 fL 83.5-101 [facility] Monocyte distribution width [Entitic volume] in Blood by AutomatedOrdered By: Grayson Duvall on 07-23-2023 Monocyte distribution width Auto (Bld) [Entitic vol] 18.02 % 0.00-20.00 [facility] Monocytes Auto (Bld) [#/Vol] Ordered By: Grayson Duvall on 07-23-2023 Monocytes (Bld) [#/Vol] 0.6 10*3/uL 0.0-0.8 [facility] Monocytes/100 WBC Auto (Bld) Ordered By: Grayson Duvall on 07-23-2023 Monocytes/100 WBC (Bld) 6.7 % . [facility] Neutrophils Auto (Bld) [#/Vo l]Ordered By: Grayson Duvall on 07-23-2023 Neutrophils (Bld) [#/Vol] 6.5 10*3/uL 1.8-7.7 [facility] Neutrophils/100 WBC Auto (Bl d)Ordered By: Grayson Duvall on 07-23-2023 Neutrophils/100 WBC (Bld) 68.4 % . [facility] No Panel InformationOrdered By: Grayson Duvall on 07-23-2023 Estimated GFR (CKD-EPI) > 60.0 mL/Min [facility] Creatinine Clearance (Chem 83.28 [facility] Nucleated erythrocytes [Pres ence] in Blood by Automated countOrdered By: Grayson Duvall on 07-23-2023 Nucleated RBC Auto Ql (Bld) 0.0 /100{WBC} 0-0.5 [facility] Platelet mean volume Auto (B ld) [Entitic vol]Ordered By: Grayson Duvall on 07-23-2023 Platelet mean volume (Bld) [Entitic vol] 8.5 fL 6.6-10.1 [facility] Platelets Auto (Bld) [#/Vol] Ordered By: Grayson Duvall on 07-23-2023 Platelets (Bld) [#/Vol] 235 10*3/uL 150-450 [facility] Potassium [Moles/volume] in Serum or PlasmaOrdered By: Grayson Duvall on 07-23-2023 Potassium [Moles/Vol] 3.8 mmol/L 3.5-5.1 [facility] Protein [Mass/volume] in Ser um or PlasmaOrdered By: Grayson Duvall on 07-23-2023 Protein [Mass/Vol] 8.0 g/dL 6.4-8.9 [facility] RBC Auto (Bld) [#/Vol]Ordere d By: Grayson Duvall on 07-23-2023 RBC (Bld) [#/Vol] 4.18 10*6/uL 3.90-5.60 [facility] Serum or plasma albumin/glob ulin mass ratioOrdered By: Grayson Duvall on 07-23-2023 Albumin/Globulin [Mass ratio] 1.4 {ratio} [facility] Serum or plasma anion gap de terminationOrdered By: Grayson Duvall on 07-23-2023 Anion gap [Moles/Vol] 16.3 mmol/L 6.0-15.0 [facility] Sodium [Moles/volume] in Ser um or PlasmaOrdered By: Grayson Duvall on 07-23-2023 Sodium [Moles/Vol] 136 mmol/L 136-145 [facility] Troponin I High Sensitivityo n 07-23-2023 Troponin I High Sensitivity 6.6 pg/mL Normal 0.0-20.0 [facility] Comment on above: Result Comment: PERF ORMED BY: [place] [address] PATHOLOGIST [employer] ANIL GUAMAN M.D. Performed By: #### C MP, TSH3, LIPID #### [place] [address] [place] Troponin I.cardiac [Mass/vol ume] in Serum or Plasma by Detection limit <= 0.01 ng/Ordered By: Grayson Duvall on 07-23-2023 Troponin I.cardiac DL <= 0.01 ng/mL [Mass/Vol] 6.6 pg/mL 0.0-20.0 [facility] Urea nitrogen [Mass/volume] in Serum or PlasmaOrdered By: Grayson Duvall on 07-23-2023 Urea nitrogen [Mass/Vol] 14 mg/dL 06-21 [facility] WBC Auto (Bld) [#/Vol]Ordere d By: Grayson Duvall on 07-23-2023 WBC (Bld) [#/Vol] 9.5 10*3/uL 4.1-10.5 [facility] XR chest 2V*on 07-23-2023 XR chest 2V* [facility] [place] [place] [address] XRay Report Signed 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 MR#: [id number] : 1970 Acct:[id number] Age/Sex: 53 / M ADM Date: 07/22/23 Loc: ER Room: Type: [facility] ER Attending Dr: Copies to: Grayson [...] Flores Jr., D.OMickey07/23/2023 10:31 AM Dictation Location: [place] [address] Transcribed By: [facility] 07/23/23 1031 Dictated By: Stevie Flores Jr, DO 07/23/23 1030 Signed By: 07/23/23 1031 Normal [facility] Alanine aminotransferase [En zymatic activity/volume] in Serum or PlasmaOrdered By: Chen Acosta on 06-30-2023 ALT [Catalytic activity/Vol] 19 U/L [facility] Albumin [Mass/volume] in Ser um or Plasma by Bromocresol green (BCG) dye binding methoOrdered By: Chen Acosta on 06-30-2023 Albumin BCG dye [Mass/Vol] 4.2 g/dL 3.5-5.7 [facility] Alkaline phosphatase [Enzyma tic activity/volume] in Serum or PlasmaOrdered By: Chen Acosta on 06-30-2023 ALP [Catalytic activity/Vol] 59 U/L 34-104 [facility] Aspartate aminotransferase [ Enzymatic activity/volume] in Serum or PlasmaOrdered By: Chen Acosta on 06-30-2023 AST [Catalytic activity/Vol] 14 U/L 13-39 [facility] Basophils Auto (Bld) [#/Vol] Ordered By: Chen Acosta on 06-30-2023 Basophils (Bld) [#/Vol] 0.1 10*3/uL 0.0-0.2 [facility] Basophils/100 WBC Auto (Bld) Ordered By: Chen Acosta on 06-30-2023 Basophils/100 WBC (Bld) 2.0 % . [facility] Beta Hydroxybuterateon 06-30 Beta Hydroxybuterate < 0.10 Normal 0.02-0.27 [facility] Comment on above: Result Comment: PERF ORMED BY: [place] [address] PATHOLOGIST [employer] ANIL GUAMAN M.D. Performed By: #### C MP, TSH3, LIPID #### [address] Beta hydroxybutyrate [Moles/ volume] in Serum or PlasmaOrdered By: Chen Acosta on 06-30-2023 Beta hydroxybutyrate [Moles/Vol] < 0.10 mmol/L 0.02-0.27 [facility] Bilirubin Test strip Ql (U)O rdered By: Chen Acosta on 06-30-2023 Bilirubin Ql (U) Negative Negative [facility] Bilirubin.total [Mass/volume ] in Serum or PlasmaOrdered By: Chen Acosta on 06-30-2023 Bilirubin [Mass/Vol] 0.5 mg/dL 0.3-1.0 [facility] Calcium [Mass/volume] in Ser um or PlasmaOrdered By: Chen Acosta on 06-30-2023 Calcium [Mass/Vol] 9.2 mg/dL 8.6-10.3 [facility] Carbon dioxide, total [Moles /volume] in Serum or PlasmaOrdered By: Chen Acosta on 06-30-2023 CO2 [Moles/Vol] 26.7 mmol/L 21.0-31.0 [facility] Chloride [Moles/volume] in S tino or PlasmaOrdered By: Chen Acosta on 06-30-2023 Chloride [Moles/Vol] 106 mmol/L 98-107 [facility] Color Auto (U)Ordered By: adryan Dave on 06-30-2023 Color (U) Yellow Yellow [facility] Complete Blood Count Auto Di ffon 06-30-2023 Basophils (Bld) [#/Vol] 0.1 10*3/uL Normal 0.0-0.2 [facility] Comment on above: Result Comment: PERF ORMED BY: [place] [address] PATHOLOGIST [employer] ANIL GUAMAN M.D. Performed By: #### C MP, TSH3, LIPID #### [address] Basophils/100 WBC (Bld) 2.0 % Normal . [facility] Comment on above: Performed By: #### C MP, TSH3, LIPID #### [address] Eosinophils (Bld) [#/Vol] 0.1 10*3/uL Normal 0.0-0.45 [facility] Comment on above: Performed By: #### C MP, TSH3, LIPID #### [place] [address] [place] Eosinophils/100 WBC (Bld) 1.7 % Normal . [facility] Comment on above: Performed By: #### C MP, TSH3, LIPID #### [address] Erythrocyte distribution width (RBC) [Ratio] 12.9 % Normal 12.0-14.8 [facility] Comment on above: Performed By: #### C MP, TSH3, LIPID #### [place] [id number] [place] Hematocrit (Bld) [Volume fraction] 36.5 % Low 38.8-50.0 [facility] Comment on above: Performed By: #### C MP, TSH3, LIPID #### [address] Hemoglobin (Bld) [Mass/Vol] 12.8 g/dL Low 13.0-17.0 [facility] Comment on above: Performed By: #### C MP, TSH3, LIPID #### [address] Lymphocytes (Bld) [#/Vol] 1.6 10*3/uL Normal 1.00-4.8 [facility] Comment on above: Performed By: #### C MP, TSH3, LIPID #### [address] Lymphocytes/100 WBC (Bld) 33.5 % Normal . [facility] Comment on above: Performed By: #### C MP, TSH3, LIPID #### [address] MCH (RBC) [Entitic mass] 32.5 pg Normal 27.5-35.2 [facility] Comment on above: Performed By: #### C MP, TSH3, LIPID #### [address] MCV (RBC) [Entitic vol] 92.7 fL Normal 83.5-101 [facility] Comment on above: Performed By: #### C MP, TSH3, LIPID #### [address] Mean Corpuscular HGB Conc 35.0 g/dL Normal 32.5-35.6 [facility] Comment on above: Performed By: #### C MP, TSH3, LIPID #### [address] Monocytes (Bld) [#/Vol] 0.3 10*3/uL Normal 0.0-0.8 [facility] Comment on above: Performed By: #### C MP, TSH3, LIPID #### [facility] [address] [place] [address] [place] Monocytes/100 WBC (Bld) 17.72 % Normal 0.00-20.00 [facility] Comment on above: Performed By: #### C MP, TSH3, LIPID #### [facility] [address] [place] [id number] [place] Monocytes/100 WBC (Bld) 6.8 % Normal . [facility] Comment on above: Performed By: #### C MP, TSH3, LIPID #### [facility] [address] [place] [address] [place] Neutrophils (Bld) [#/Vol] 2.8 10*3/uL Normal 1.8-7.7 [facility] Comment on above: Performed By: #### C MP, TSH3, LIPID #### [facility] [address] [place] [address] [place] Neutrophils/100 WBC (Bld) 56.0 % Normal . [facility] Comment on above: Performed By: #### C MP, TSH3, LIPID #### [facility] [address] [place] [address] [place] NRBC% 0.1 /100{WBC} Normal 0-0.5 [facility] Comment on above: Performed By: #### C MP, TSH3, LIPID #### [facility] [address] [place] [address] [place] Platelet mean volume (Bld) [Entitic vol] 8.7 fL Normal 6.6-10.1 [facility] Comment on above: Performed By: #### C MP, TSH3, LIPID #### [facility] [address] [place] [address] [place] Platelets (Bld) [#/Vol] 196 10*3/uL Normal 150-450 [facility] Comment on above: Performed By: #### C MP, TSH3, LIPID #### [facility] [address] [place] [address] [place] RBC (Bld) [#/Vol] 3.94 10*6/uL Normal 3.90-5.60 [facility] Comment on above: Performed By: #### C MP, TSH3, LIPID #### [address] WBC (Bld) [#/Vol] 4.9 10*3/uL Normal 4.1-10.5 [facility] Comment on above: Performed By: #### C MP, TSH3, LIPID #### [address] Comprehensive Metabolic Pane rudolph 06-30-2023 Albumin [Mass/Vol] 4.2 g/dL Normal 3.5-5.7 [facility] Comment on above: Performed By: #### C MP, TSH3, LIPID #### [address] Albumin/Globulin [Mass ratio] 1.4 {ratio} Normal [facility] Comment on above: Performed By: #### C MP, TSH3, LIPID #### [address] ALP [Catalytic activity/Vol] 59 U/L Normal 34-104 [facility] Comment on above: Performed By: #### C MP, TSH3, LIPID #### [address] ALT [Catalytic activity/Vol] 19 U/L Normal 7-52 [facility] Comment on above: Performed By: #### C MP, TSH3, LIPID #### [address] Anion gap [Moles/Vol] 10.6 mmol/L Normal 6.0-15.0 [facility] Comment on above: Performed By: #### C MP, TSH3, LIPID #### [address] AST [Catalytic activity/Vol] 14 U/L Normal 13-39 [facility] Comment on above: Performed By: #### C MP, TSH3, LIPID #### [address] Bilirubin [Mass/Vol] 0.5 mg/dL Normal 0.3-1.0 [facility] Comment on above: Performed By: #### C MP TSH3, LIPID #### [facility] [address] Calcium [Mass/Vol] 9.2 mg/dL Normal 8.6-10.3 [facility] Comment on above: Performed By: #### C MP TSH3, LIPID #### [facility] [address] Chloride [Moles/Vol] 106 mmol/L Normal 98-107 [facility] Comment on above: Performed By: #### C MP TSH3, LIPID #### [address] CO2 [Moles/Vol] 26.7 mmol/L Normal 21.0-31.0 [facility] Comment on above: Performed By: #### C MP TSH3, LIPID #### [address] Creatinine [Mass/Vol] 0.88 mg/dL Normal 0.70-1.30 [facility] Comment on above: Performed By: #### C ORI TSH3, LIPID #### [address] Creatinine Clr Calc Pharmacy 102.21 [facility] Comment on above: Performed By: #### C MP TSH3, LIPID #### [place] [address] [place] GFR/1.73 sq M.predicted MDRD (S/P/Bld) [Vol rate/Area] mL/min/{1.73_m2} [facility] Comment on above: Performed By: #### C MP TSH3, LIPID #### [address] Globulin (S) [Mass/Vol] 2.9 g/dL [facility] Comment on above: Performed By: #### C MP, TSH3, LIPID #### [address] [place] [address] [place] Glucose [Mass/Vol] 180 mg/dL High 70-100 [facility] Comment on above: Result Comment: [place] Glucose Reference Range is dependent on time and content of last meal. Glucose of more than 200 mg/dL in a nonstressed, ambulatory subject supports the diagnosis of Diabetes Mellitus. ADA recommended reference range Performed By: #### C MP, TSH3, LIPID #### [facility] [address] Potassium [Moles/Vol] 4.3 mmol/L Normal 3.5-5.1 [facility] Comment on above: Performed By: #### C MP TSH3, LIPID #### [address] Protein [Mass/Vol] 7.1 g/dL Normal 6.4-8.9 [facility] Comment on above: Performed By: #### C MP, TSH3, LIPID #### [address] Sodium [Moles/Vol] 139 mmol/L Normal 136-145 [facility] Comment on above: Performed By: #### C MP, TSH3, LIPID #### [address] Urea nitrogen [Mass/Vol] 17 mg/dL Normal 7-25 [facility] Comment on above: Performed By: #### C MP, TSH3, LIPID #### [place] [address] [place] Creatinine [Mass/volume] in Serum or PlasmaOrdered By: Chen Acosta on 06-30-2023 Creatinine [Mass/Vol] 0.88 mg/dL 0.70-1.30 [facility] ECG 12 lead ECGon 06-30-2023 ECG 12 lead ECG [facility] Main [place] [address] [place] [address] Electrocardiograph Report Signed 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 MR#: [id number] : 1970 Acct:[id number] Age/Sex: 53 / M ADM Date: 06/30/23 Loc: ER Room: Type: [facility] ER Attending Dr: Ordering Provider: Chen [...] Inferior leads Confirmed by ERROL DELGADO DO ([id number]) on 06/30/2023 3:13:21 PM Referred By: Electronically Signed By:ERROL DELGADO DO Transcribed By: MUS Signed By Errol Delgado DO 06/30 1513 Normal [facility] Eosinophils Auto (Bld) [#/Vo l]Ordered By: Chen Acosta on 06-30-2023 Eosinophils (Bld) [#/Vol] 0.1 10*3/uL 0.0-0.45 [facility] Eosinophils/100 WBC Auto (Bl d)Ordered By: Chen Acosta on 06-30-2023 Eosinophils/100 WBC (Bld) 1.7 % . [facility] Erythrocyte distribution wid th Auto (RBC) [Ratio]Ordered By: Chen Acosta on 06-30-2023 Erythrocyte distribution width (RBC) [Ratio] 12.9 % 12.0-14.8 [facility] Globulin Calc (S) [Mass/Vol] Ordered By: Chen Acosta on 06-30-2023 Globulin (S) [Mass/Vol] 2.9 g/dL [facility] Glucose Glucometer (BldC) [M ass/Vol]Ordered By: Chen Acosta on 06-30-2023 Glucose [Mass/Vol] 173 mg/dL [facility] Comment on above: Random Glucose Refer ence Range is dependent on time and content of last meal. Glucose of more than 200 mg/dL in a nonstressed, ambulatory subject supports the diagnosis of Diabetes Mellitus. Glucose Poct Glucometerson 0 06-30-2023 Commemt1 Glu2: Cleaned Meter Normal [facility] Comment on above: Result Comment: PERF ORMED BY: [facility] [address] [place] [address] PATHOLOGIST [employer] ANIL GUAMAN M.D. Performed By: #### R AUDRA PANEL UPP., BIOFIRECOVNOTDE #### [facility] [address] [place] [address] [place] Glucose [Mass/Vol] 173 mg/dL Normal [facility] Comment on above: Result Comment: [place] [facility] Glucose Reference Range is dependent on time and content of last meal. Glucose of more than 200 mg/dL in a nonstressed, ambulatory subject supports the diagnosis of Diabetes Mellitus. Performed By: #### R AUDRA PANEL UPP., BIOFIRECOVNOTDE #### [facility] [address] Glucose [Mass/volume] in Ser um or PlasmaOrdered By: Chen Acosta on 06-30-2023 Glucose [Mass/Vol] 180 mg/dL 70-100 [facility] Comment on above: ADA recommended refe rence rangeRandom Glucose Reference Range is dependent on time and content of last meal. Glucose of more than 200 mg/dL in a nonstressed, ambulatory subject supports the diagnosis of Diabetes Mellitus. Hematocrit Auto (Bld) [Volum e fraction]Ordered By: Chen Acosta on 06-30-2023 Hematocrit (Bld) [Volume fraction] 36.5 % 38.8-50.0 [facility] Hemoglobin [Mass/volume] in BloodOrdered By: Chen Acosta on 06-30-2023 Hemoglobin (Bld) [Mass/Vol] 12.8 g/dL 13.0-17.0 [facility] Ketones Auto test strip (U) [Mass/Vol]Ordered By: Chen Acosta on 06-30-2023 Ketones (U) [Mass/Vol] Negative Negative [facility] - Chemistry and C hemistry - challengeOrdered By: Chen Acosta on 06-30-2023 CO2 [Moles/Vol] 23.3 mmol/L 24.0-29.0 [facility] HCO3 (Bld) [Moles/Vol] 22.0 mmol/L 23.0-29.0 [facility] Leukocytes [#/volume] correc billy for nucleated erythrocytes in Blood by Automated counOrdered By: Chen Acosta on 06-30-2023 WBC corrected for nucl RBC Auto (Bld) [#/Vol] 4.9 10*3/uL 4.1-10.5 [facility] Lymphocytes Auto (Bld) [#/Vo l]Ordered By: Chen Acosta on 06-30-2023 Lymphocytes (Bld) [#/Vol] 1.6 10*3/uL 1.00-4.8 [facility] Lymphocytes/100 WBC Auto (Bl d)Ordered By: Chen Acosta on 06-30-2023 Lymphocytes/100 WBC (Bld) 33.5 % . [facility] MCH Auto (RBC) [Entitic mass ]Ordered By: Chen Acosta on 06-30-2023 MCH (RBC) [Entitic mass] 32.5 pg 27.5-35.2 [facility] MCHC Auto (RBC) [Mass/Vol]Or dered By: Chen Acosta on 06-30-2023 MCHC (RBC) [Mass/Vol] 35.0 g/dL 32.5-35.6 [facility] MCV Auto (RBC) [Entitic vol] Ordered By: Chen Acosta on 06-30-2023 MCV (RBC) [Entitic vol] 92.7 fL 83.5-101 [facility] Monocyte distribution width [Entitic volume] in Blood by AutomatedOrdered By: Chen Acosta on 06-30-2023 Monocyte distribution width Auto (Bld) [Entitic vol] 17.72 % 0.00-20.00 [facility] Monocytes Auto (Bld) [#/Vol] Ordered By: Chen Acosta on 06-30-2023 Monocytes (Bld) [#/Vol] 0.3 10*3/uL 0.0-0.8 [facility] Monocytes/100 WBC Auto (Bld) Ordered By: Chen Acosta on 06-30-2023 Monocytes/100 WBC (Bld) 6.8 % . [facility] Neutrophils Auto (Bld) [#/Vo l]Ordered By: Chen Acosta on 06-30-2023 Neutrophils (Bld) [#/Vol] 2.8 10*3/uL 1.8-7.7 [facility] Neutrophils/100 WBC Auto (Bl d)Ordered By: Chen Acosta on 06-30-2023 Neutrophils/100 WBC (Bld) 56.0 % . [facility] Nitrite Test strip Ql (U)Ord ered By: Chen Acosta on 06-30-2023 Nitrite Ql (U) Negative Negative [facility] No Panel InformationOrdered By: Chen Acosta on 06-30-2023 Bedside Glucose Comment Glu2: cleaned meter [facility] Blood Gas Critical Value See comment [facility] Comment on above: Critical Value topete d on: 06/30/2023 at 10:56 Blood Gas Sample Site Venous Fir [facility] FiO2 21 % [facility] Venous Blood Base Excess -3.1 mmol/L -3.0-3.0 [facility] Venous Blood Oxygen Saturation 77.2 % 73.0-76.0 [facility] Venous Blood Partial Pressure CO2 40.0 mm[Hg] 38.0-50.0 [facility] Venous Blood Partial Pressure O2 39.4 mm[Hg] 35.0-45.0 [facility] Venous Blood pH 7.36 7.32-7.43 [facility] Estimated GFR (CKD-EPI) > 60.0 mL/Min [facility] Creatinine Clearance (Chem 102.21 [facility] Nucleated erythrocytes [Pres ence] in Blood by Automated countOrdered By: Chen Acosta on 06-30-2023 Nucleated RBC Auto Ql (Bld) 0.1 /100{WBC} 0-0.5 [facility] Platelet mean volume Auto (B ld) [Entitic vol]Ordered By: Chen Acosta on 06-30-2023 Platelet mean volume (Bld) [Entitic vol] 8.7 fL 6.6-10.1 [facility] Platelets Auto (Bld) [#/Vol] Ordered By: Chen Acosta on 06-30-2023 Platelets (Bld) [#/Vol] 196 10*3/uL 150-450 [facility] Potassium [Moles/volume] in Serum or PlasmaOrdered By: Chen Acosta on 06-30-2023 Potassium [Moles/Vol] 4.3 mmol/L 3.5-5.1 [facility] Protein Auto test strip (U) [Mass/Vol]Ordered By: Chen Acosta on 06-30-2023 Protein (U) [Mass/Vol] Negative Negative Fi [facility] Protein [Mass/volume] in Ser um or PlasmaOrdered By: Chen Acosta on 06-30-2023 Protein [Mass/Vol] 7.1 g/dL 6.4-8.9 [facility] RBC Auto (Bld) [#/Vol]Ordere d By: Chen Acosta on 06-30-2023 RBC (Bld) [#/Vol] 3.94 10*6/uL 3.90-5.60 [facility] Serum or plasma albumin/glob ulin mass ratioOrdered By: Chen Acosta on 06-30-2023 Albumin/Globulin [Mass ratio] 1.4 {ratio} [facility] Serum or plasma anion gap de terminationOrdered By: Chen Acosta on 06-30-2023 Anion gap [Moles/Vol] 10.6 mmol/L 6.0-15.0 [facility] Sodium [Moles/volume] in Ser um or PlasmaOrdered By: Chen Acosta on 06-30-2023 Sodium [Moles/Vol] 139 mmol/L 136-145 [facility] Specific gravity Auto test s trip (U) [Rel density]Ordered By: Chen Acosta on 06-30-2023 Specific gravity (U) [Rel density] 1.020 1.001-1.030 [facility] Urea nitrogen [Mass/volume] in Serum or PlasmaOrdered By: Chen Acosta on 06-30-2023 Urea nitrogen [Mass/Vol] 17 mg/dL 7-25 [facility] Urinalysison 06-30-2023 Appearance (U) Clear Normal Clear [facility] Comment on above: Order Comment: Reaso n for Exam Weight loss;Nausea vomiting;Type 2 diabetes mellitus with PT IS FASTING Performed By: #### C MP, TSH3, LIPID #### [facility] [address] [place] [address] [place] Bilirubin,Urine Negative Normal Negative [facility] Comment on above: Order Comment: Reaso n for Exam Weight loss;Nausea vomiting;Type 2 diabetes mellitus with PT IS FASTING Performed By: #### C MP, TSH3, LIPID #### [facility] [address] [place] [address] [place] Color (U) Yellow Normal Yellow [facility] Comment on above: Order Comment: Reaso n for Exam Weight loss;Nausea vomiting;Type 2 diabetes mellitus with PT IS FASTING Performed By: #### C MP, TSH3, LIPID #### [facility] [address] [place] [address] [place] Glucose Ql (U) 500 mg/dL High Normal [facility] Comment on above: Order Comment: Reaso n for Exam Weight loss;Nausea vomiting;Type 2 diabetes mellitus with PT IS FASTING Performed By: #### C MP, TSH3, LIPID #### [facility] [address] [place] [address] [place] Ketones Ql (U) Negative Normal Negative [facility] Comment on above: Order Comment: Reaso n for Exam Weight loss;Nausea vomiting;Type 2 diabetes mellitus with PT IS FASTING Performed By: #### C MP, TSH3, LIPID #### [facility] [address] [place] [address] [place] Leukocyte esterase Test strip Ql (U) Negative Normal Negative [facility] Comment on above: Order Comment: Reaso n for Exam Weight loss;Nausea vomiting;Type 2 diabetes mellitus with PT IS FASTING Performed By: #### C MP, TSH3, LIPID #### [facility] [address] [place] [address] [place] Nitrite,Urine Negative Normal Negative [facility] Comment on above: Order Comment: Reaso n for Exam Weight loss;Nausea vomiting;Type 2 diabetes mellitus with PT IS FASTING Performed By: #### C MP, TSH3, LIPID #### [facility] [address] [place] [address] [place] Occult Blood,Urine Negative Normal Negative [facility] Comment on above: Order Comment: Reaso n for Exam Weight loss;Nausea vomiting;Type 2 diabetes mellitus with PT IS FASTING Result Comment: PERF ORMED BY: [place] [address] PATHOLOGIST [employer] ANIL GUAMAN M.D. Performed By: #### C MP, TSH3, LIPID #### [address] pH (U) 5.5 [pH] Normal 5.0-9.0 [facility] Comment on above: Order Comment: Reaso n for Exam Weight loss;Nausea vomiting;Type 2 diabetes mellitus with PT IS FASTING Performed By: #### C MP, TSH3, LIPID #### [place] [address] [place] Protein,Urine Negative Normal Negative [facility] Comment on above: Order Comment: Reaso n for Exam Weight loss;Nausea vomiting;Type 2 diabetes mellitus with PT IS FASTING Performed By: #### C MP, TSH3, LIPID #### [facility] [address] [place] [address] Specificy [place],Urine 1.020 Normal 1.001-1.030 [facility] Comment on above: Order Comment: Reaso n for Exam Weight loss;Nausea vomiting;Type 2 diabetes mellitus with PT IS FASTING Performed By: #### C MP, TSH3, LIPID #### [address] Urobilinogen,Urine Normal Normal Normal [facility] Comment on above: Order Comment: Reaso n for Exam Weight loss;Nausea vomiting;Type 2 diabetes mellitus with PT IS FASTING Performed By: #### C MP, TSH3, LIPID #### [facility] [address] [place] [address] [place] Urine clarity by refractomet ry automatedOrdered By: Chen Acosta on 06-30-2023 Clarity Refractometry automated (U) Clear Clear [facility] Urine glucose measurement by automated test strip (mass/volume)Ordered By: Chen Acosta on 06-30-2023 Glucose Auto test strip (U) [Mass/Vol] 500 mg/dL Normal [facility] Urine hemoglobin detection b y automated test stripOrdered By: Chen Acosta on 06-30-2023 Hemoglobin Auto test strip Ql (U) Negative Negative [facility] Urine leukocyte esterase det ection by automated test stripOrdered By: Chenalexandra Acosta on 06-30-2023 Leukocyte esterase Auto test strip Ql (U) Negative Negative [facility] Urobilinogen Auto test strip (U) [Mass/Vol]Ordered By: Chen Acosta on 06-30-2023 Urobilinogen (U) [Mass/Vol] Normal mg/dL Normal [facility] Venous Blood Gason 3 CO2 [Moles/Vol] 23.3 mmol/L Low 24.0-29.0 [facility] Comment on above: Performed By: #### C MP, TSH3, LIPID #### [address] HCO3 (Bld) [Moles/Vol] 22.0 mmol/L Low 23.0-29.0 [facility] Comment on above: Performed By: #### C MP, TSH3, LIPID #### [address] Respiratory Critical [facility] Comment on above: Result Comment: Crit ical Value called on: 06/30/2023 at 10:56 PERFORMED BY: [place] [address] PATHOLOGIST [employer] ANIL GUAMAN M.D. Performed By: #### C MP, TSH3, LIPID #### [address] VBG Base Excess -3.1 mmol/L Low -3.0-3.0 [facility] Comment on above: Performed By: #### C MP, TSH3, LIPID #### [facility] [address] [place] [address] VBG Draw Site Venous [facility] Comment on above: Performed By: #### C MP, TSH3, LIPID #### [address] VBG Frac Inspired O2 21 % Normal [facility] Comment on above: Performed By: #### C MP, TSH3, LIPID #### [facility] [address] VBG Oxygen Saturation 77.2 % High 73.0-76.0 [facility] Comment on above: Performed By: #### C MP, TSH3, LIPID #### [facility] [address] VBG PCO2 40.0 mm[Hg] Normal 38.0-50.0 [facility] Comment on above: Performed By: #### C MP, TSH3, LIPID #### [facility] [address] VBG PH Venous PH 7.36 Normal 7.32-7.43 [facility] Comment on above: Performed By: #### C MP, TSH3, LIPID #### [facility] [address] VBG PO2 39.4 mm[Hg] Normal 35.0-45.0 [facility] Comment on above: Performed By: #### C MP, TSH3, LIPID #### [facility] [address] WBC Auto (Bld) [#/Vol]Ordere d By: Chen Acosta on 06-30-2023 WBC (Bld) [#/Vol] 4.9 10*3/uL 4.1-10.5 [facility] pH Auto test strip (U)Ordere d By: Chen Acosta on 06-30-2023 pH (U) 5.5 [pH] 5.0-9.0 [facility] Alanine aminotransferase [En zymatic activity/volume] in Serum or PlasmaOrdered By: David Khan on 06-24-2023 ALT [Catalytic activity/Vol] 19 U/L 7-52 [facility] Albumin [Mass/volume] in Ser um or Plasma by Bromocresol green (BCG) dye binding methoOrdered By: David Khan on 06-24-2023 Albumin BCG dye [Mass/Vol] 4.1 g/dL 3.5-5.7 [facility] Alkaline phosphatase [Enzyma tic activity/volume] in Serum or PlasmaOrdered By: David Khan on 06-24-2023 ALP [Catalytic activity/Vol] 62 U/L 34-104 [facility] Aspartate aminotransferase [ Enzymatic activity/volume] in Serum or PlasmaOrdered By: Davidfátima OlsenBill on 06-24-2023 AST [Catalytic activity/Vol] 14 U/L 13-39 [facility] Automated erythrocytes count in urine sediment (number/area)Ordered By: David Bill on 06-24-2023 RBC Auto (Urine sed) [#/Area] 1-2 [HPF] 0-4 [facility] Automated leukocytes count i n urine sediment (number/area)Ordered By: [facility] Bill on 06-24-2023 WBC Auto (Urine sed) [#/Area] 1-2 [HPF] 0-4 [facility] B-Type Natriuretic Peptideon 06-24-2023 Natriuretic peptide B (Bld) [Mass/Vol] 17.0 pg/mL Normal 5-100 [facility] Comment on above: Result Comment: PERF ORMED BY: [place] [address] PATHOLOGIST [employer] ANIL GUAMAN M.D. Performed By: #### C MP, TSH3, LIPID #### [address] Basophils Auto (Bld) [#/Vol] Ordered By: David Bill on 06-24-2023 Basophils (Bld) [#/Vol] 0.1 10*3/uL 0.0-0.2 [facility] Basophils/100 WBC Auto (Bld) Ordered By: [facility] on 06-24-2023 Basophils/100 WBC (Bld) 0.7 % . [facility] Bilirubin Test strip Ql (U)O rdered By: David Khan on 06-24-2023 Bilirubin Ql (U) 1+ Negative [facility] Bilirubin.total [Mass/volume ] in Serum or PlasmaOrdered By: David Bill on 06-24-2023 Bilirubin [Mass/Vol] 0.6 mg/dL 0.3-1.0 [facility] Calcium [Mass/volume] in Ser um or PlasmaOrdered By: David Khan on 06-24-2023 Calcium [Mass/Vol] 8.8 mg/dL 8.6-10.3 [facility] Carbon dioxide, total [Moles /volume] in Serum or PlasmaOrdered By: David Bill on 06-24-2023 CO2 [Moles/Vol] 26.1 mmol/L 21.0-31.0 [facility] Chloride [Moles/volume] in S tino or PlasmaOrdered By: David Bill on 06-24-2023 Chloride [Moles/Vol] 95 mmol/L 98-107 [facility] Color Auto (U)Ordered By: An am Bill on 06-24-2023 Color (U) Dark yellow Yellow [facility] Complete Blood Count Auto Di ffon 06-24-2023 Basophils (Bld) [#/Vol] 0.1 10*3/uL Normal 0.0-0.2 [facility] Comment on above: Result Comment: PERF ORMED BY: [place] [address] PATHOLOGIST [employer] ANIL GUAMAN M.D. Performed By: #### C MP, TSH3, LIPID #### [facility] [address] [place] [address] Basophils/100 WBC (Bld) 0.7 % Normal . [facility] Comment on above: Performed By: #### C MP, TSH3, LIPID #### [facility] [address] [place] [address] [place] Eosinophils (Bld) [#/Vol] 0.0 10*3/uL Normal 0.0-0.45 [facility] Comment on above: Performed By: #### C MP, TSH3, LIPID #### [facility] [address] [place] [address] [place] Eosinophils/100 WBC (Bld) 0.4 % Normal . [facility] Comment on above: Performed By: #### C MP, TSH3, LIPID #### [facility] [address] [place] [address] [place] Erythrocyte distribution width (RBC) [Ratio] 12.7 % Normal 12.0-14.8 [facility] Comment on above: Performed By: #### C MP, TSH3, LIPID #### [address] Hematocrit (Bld) [Volume fraction] 38.2 % Low 38.8-50.0 [facility] Comment on above: Performed By: #### C MP, TSH3, LIPID #### [address] Hemoglobin (Bld) [Mass/Vol] 13.4 g/dL Normal 13.0-17.0 [facility] Comment on above: Performed By: #### C MP, TSH3, LIPID #### [address] Lymphocytes (Bld) [#/Vol] 1.2 10*3/uL Normal 1.00-4.8 [facility] Comment on above: Performed By: #### C MP, TSH3, LIPID #### [address] Lymphocytes/100 WBC (Bld) 13.5 % Normal . [facility] Comment on above: Performed By: #### C MP, TSH3, LIPID #### [address] MCH (RBC) [Entitic mass] 33.0 pg Normal 27.5-35.2 [facility] Comment on above: Performed By: #### C MP, TSH3, LIPID #### [address] MCV (RBC) [Entitic vol] 94.0 fL Normal 83.5-101 [facility] Comment on above: Performed By: #### C MP, TSH3, LIPID #### [address] Mean Corpuscular HGB Conc 35.1 g/dL Normal 32.5-35.6 [facility] Comment on above: Performed By: #### C MP, TSH3, LIPID #### [facility] [address] [place] [address] [place] Monocytes (Bld) [#/Vol] 0.5 10*3/uL Normal 0.0-0.8 [facility] Comment on above: Performed By: #### C MP, TSH3, LIPID #### [facility] [address] [place] [address] [place] Monocytes/100 WBC (Bld) 19.27 % Normal 0.00-20.00 [facility] Comment on above: Performed By: #### C MP, TSH3, LIPID #### [facility] [address] [place] [address] [place] Monocytes/100 WBC (Bld) 5.2 % Normal . [facility] Comment on above: Performed By: #### C MP, TSH3, LIPID #### [facility] [address] [place] [address] [place] Neutrophils (Bld) [#/Vol] 7.0 10*3/uL Normal 1.8-7.7 [facility] Comment on above: Performed By: #### C MP, TSH3, LIPID #### [facility] [address] [place] [address] [place] Neutrophils/100 WBC (Bld) 80.2 % Normal . [facility] Comment on above: Performed By: #### C MP, TSH3, LIPID #### [facility] [address] [place] [address] [place] NRBC% 0.1 /100{WBC} Normal 0-0.5 [facility] Comment on above: Performed By: #### C MP, TSH3, LIPID #### [facility] [address] [place] [address] [place] Platelet mean volume (Bld) [Entitic vol] 8.6 fL Normal 6.6-10.1 [facility] Comment on above: Performed By: #### C MP, TSH3, LIPID #### [facility] [address] [place] [address] [place] Platelets (Bld) [#/Vol] 204 10*3/uL Normal 150-450 [facility] Comment on above: Performed By: #### C MP, TSH3, LIPID #### [facility] [address] [place] [address] RBC (Bld) [#/Vol] 4.07 10*6/uL Normal 3.90-5.60 [facility] Comment on above: Performed By: #### C MP, TSH3, LIPID #### [address] WBC (Bld) [#/Vol] 8.7 10*3/uL Normal 4.1-10.5 [facility] Comment on above: Performed By: #### C MP, TSH3, LIPID #### [address] Comprehensive Metabolic Pane rudolph 06-24-2023 Albumin [Mass/Vol] 4.1 g/dL Normal 3.5-5.7 [facility] Comment on above: Performed By: #### C MP, TSH3, LIPID #### [address] Albumin/Globulin [Mass ratio] 1.4 {ratio} Normal [facility] Comment on above: Performed By: #### C MP, TSH3, LIPID #### [address] ALP [Catalytic activity/Vol] 62 U/L Normal 34-104 [facility] Comment on above: Performed By: #### C MP, TSH3, LIPID #### [address] ALT [Catalytic activity/Vol] 19 U/L Normal 7-52 [facility] Comment on above: Performed By: #### C MP, TSH3, LIPID #### [facility] [address] [place] [address] Anion gap [Moles/Vol] 14.6 mmol/L Normal 6.0-15.0 [facility] Comment on above: Performed By: #### C MP, TSH3, LIPID #### [address] AST [Catalytic activity/Vol] 14 U/L Normal 13-39 [facility] Comment on above: Performed By: #### C MP, TSH3, LIPID #### [facility] [address] Bilirubin [Mass/Vol] 0.6 mg/dL Normal 0.3-1.0 [facility] Comment on above: Performed By: #### C MP, TSH3, LIPID #### [facility] [address] Calcium [Mass/Vol] 8.8 mg/dL Normal 8.6-10.3 [facility] Comment on above: Performed By: #### C MP, TSH3, LIPID #### [address] Chloride [Moles/Vol] 95 mmol/L Low 98-107 [facility] Comment on above: Performed By: #### C MP, TSH3, LIPID #### [facility] [address] [place] [address] CO2 [Moles/Vol] 26.1 mmol/L Normal 21.0-31.0 [facility] Comment on above: Performed By: #### C MP, TSH3, LIPID #### [address] Creatinine [Mass/Vol] 1.64 mg/dL High 0.70-1.30 [facility] Comment on above: Performed By: #### C MP, TSH3, LIPID #### [facility] [address] [place] [address] Creatinine Clr Calc Pharmacy 53.79 Normal [facility] Comment on above: Result Comment: PERF ORMED BY: [place] [address] PATHOLOGIST [employer] ANIL GUAMAN M.D. Performed By: #### C MP, TSH3, LIPID #### [address] GFR/1.73 sq M.predicted MDRD (S/P/Bld) [Vol rate/Area] 49.706 mL/min/{1.73_m2} [facility] Comment on above: Performed By: #### C MP, TSH3, LIPID #### [facility] [address] Globulin (S) [Mass/Vol] 3.0 g/dL [facility] Comment on above: Performed By: #### C MP, TSH3, LIPID #### [facility] [address] Glucose [Mass/Vol] 412 mg/dL High 70-100 [facility] Comment on above: Result Comment: [facility] Glucose Reference Range is dependent on time and content of last meal. Glucose of more than 200 mg/dL in a nonstressed, ambulatory subject supports the diagnosis of Diabetes Mellitus. ADA recommended reference range Performed By: #### C MP, TSH3, LIPID #### [facility] [address] Potassium [Moles/Vol] 4.7 mmol/L Normal 3.5-5.1 [facility] Comment on above: Performed By: #### C MP, TSH3, LIPID #### [facility] [address] Protein [Mass/Vol] 7.1 g/dL Normal 6.4-8.9 [facility] Comment on above: Performed By: #### C MP, TSH3, LIPID #### [facility] [address] [place] [address] [place] Sodium [Moles/Vol] 131 mmol/L Low 136-145 [facility] Comment on above: Performed By: #### C MP, TSH3, LIPID #### [facility] [address] [place] [address] [place] Urea nitrogen [Mass/Vol] 26 mg/dL High 7-25 [facility] Comment on above: Performed By: #### C MP, TSH3, LIPID #### [facility] [address] [place] [address] [place] Creatinine [Mass/volume] in Serum or PlasmaOrdered By: David Khan on 06-24-2023 Creatinine [Mass/Vol] 1.64 mg/dL 0.70-1.30 [facility] Dipstick and Microscopicon 0 06-24-2023 Appearance (U) Clear Normal Clear [facility] Comment on above: Order Comment: Name Collection Type:: Clean-Voided Midstream Performed By: #### V BG #### Point of Care testing , Bacteria,Urine None Seen Normal None Seen [facility] Comment on above: Order Comment: Name Collection Type:: Clean-Voided Midstream Performed By: #### V BG #### Point of Care testing , Bilirubin,Urine 1+ High Negative [facility] Comment on above: Order Comment: Name Collection Type:: Clean-Voided Midstream Performed By: #### V BG #### Point of Care testing , Color (U) Dark Yellow Critically abnormal Yellow [facility] Comment on above: Order Comment: Name Collection Type:: Clean-Voided Midstream Performed By: #### V BG #### Point of Care testing , Glucose Ql (U) >=1000 High Normal [facility] Comment on above: Order Comment: Name Collection Type:: Clean-Voided Midstream Performed By: #### V BG #### Point of Care testing , Hyaline Casts,Urine 9-19 High 0-8 [facility] Comment on above: Order Comment: Name Collection Type:: Clean-Voided Midstream Result Comment: PERF ORMED BY: [facility] [address] [place] [address] PATHOLOGIST [employer] ANIL GUAMAN M.D. Performed By: #### V BG #### Point of Care testing , Ketones Ql (U) Trace High Negative [facility] Comment on above: Order Comment: Name Collection Type:: Clean-Voided Midstream Performed By: #### V BG #### Point of Care testing , Leukocyte esterase Test strip Ql (U) Negative Normal Negative [facility] Comment on above: Order Comment: Name Collection Type:: Clean-Voided Midstream Performed By: #### V BG #### Point of Care testing , Nitrite,Urine Negative Normal Negative [facility] Comment on above: Order Comment: Name Collection Type:: Clean-Voided Midstream Performed By: #### V BG #### Point of Care testing , Occult Blood,Urine Negative Normal Negative [facility] Comment on above: Order Comment: Name Collection Type:: Clean-Voided Midstream Result Comment: PERF ORMED BY: [facility] [place] [address] PATHOLOGIST [employer] ANIL GUAMAN M.D. Performed By: #### V BG #### Point of Care testing , pH (U) 5.5 [pH] Normal 5.0-9.0 [facility] Comment on above: Order Comment: Name Collection Type:: Clean-Voided Midstream Performed By: #### V BG #### Point of Care testing , Protein (U) [Mass/Vol] 30 mg/dL High Negative [facility] Comment on above: Order Comment: Name Collection Type:: Clean-Voided Midstream Performed By: #### V BG #### Point of Care testing , RBC,Urine 1-2 Normal 0-4 [facility] Comment on above: Order Comment: Name Collection Type:: Clean-Voided Midstream Performed By: #### V BG #### Point of Care testing , Specificy [place],Urine 1.029 Normal 1.001-1.030 [facility] Comment on above: Order Comment: Name Collection Type:: Clean-Voided Midstream Performed By: #### V BG #### Point of Care testing , Squamous Epithelial Cell,Urine 0-1 Normal 0-2 [facility] Comment on above: Order Comment: Name Collection Type:: Clean-Voided Midstream Performed By: #### V BG #### Point of Care testing , Urobilinogen,Urine Normal Normal Normal [facility] Comment on above: Order Comment: Name Collection Type:: Clean-Voided Midstream Performed By: #### V BG #### Point of Care testing , WBC,Urine 1-2 Normal 0-4 [facility] Comment on above: Order Comment: Name Collection Type:: Clean-Voided Midstream Performed By: #### V BG #### Point of Care testing , ECG 12 lead ECGon 06-24-2023 ECG 12 lead ECG [facility] [place] [address] Electrocardiograph Report Signed 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 MR#: 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 : 1970 Acct:[id number] Age/Sex: 52 / M ADM Date: 06/24/23 Loc: ER Room: Type: [facility] ER Attending Dr: Ordering Provider: Bucky [...] Normal ECG Confirmed by Bucky Cheng DO ([id number]) on 06/24/2023 3:55:14 PM Referred By: Electronically Signed By:Bucky Cheng DO Transcribed By: MUS Signed By Bucky Cheng DO [id number] Normal [facility] Eosinophils Auto (Bld) [#/Vo l]Ordered By: David Khan on 06-24-2023 Eosinophils (Bld) [#/Vol] 0.0 10*3/uL 0.0-0.45 [facility] Eosinophils/100 WBC Auto (Bl d)Ordered By: David Khan on 06-24-2023 Eosinophils/100 WBC (Bld) 0.4 % . [facility] Erythrocyte distribution wid th Auto (RBC) [Ratio]Ordered By: David Khan on 06-24-2023 Erythrocyte distribution width (RBC) [Ratio] 12.7 % 12.0-14.8 [facility] Globulin Calc (S) [Mass/Vol] Ordered By: David Khan on 06-24-2023 Globulin (S) [Mass/Vol] 3.0 g/dL [facility] Glucose Glucometer (BldC) [M ass/Vol]Ordered By: Bucky Cheng on 06-24-2023 Glucose [Mass/Vol] 363 mg/dL [facility] Comment on above: Random Glucose Refer ence Range is dependent on time and content of last meal. Glucose of more than 200 mg/dL in a nonstressed, ambulatory subject supports the diagnosis of Diabetes Mellitus. Glucose Poct Glucometerson 0 06-24-2023 Glucose [Mass/Vol] 363 mg/dL Normal [facility] Comment on above: Result Comment: [place] om Glucose Reference Range is dependent on time and content of last meal. Glucose of more than 200 mg/dL in a nonstressed, ambulatory subject supports the diagnosis of Diabetes Mellitus. PERFORMED BY: [place] [address] PATHOLOGIST [employer] ANIL GUAMAN M.D. Performed By: #### C BC, LIPASE, HEPATIC, BMP #### [facility] [address] Glucose [Mass/volume] in Ser um or PlasmaOrdered By: David Khan on 06-24-2023 Glucose [Mass/Vol] 412 mg/dL 70-100 [facility] Comment on above: ADA recommended refe rence rangeRandom Glucose Reference Range is dependent on time and content of last meal. Glucose of more than 200 mg/dL in a nonstressed, ambulatory subject supports the diagnosis of Diabetes Mellitus. Hematocrit Auto (Bld) [Volum e fraction]Ordered By: David Khan on 06-24-2023 Hematocrit (Bld) [Volume fraction] 38.2 % 38.8-50.0 [facility] Hemoglobin [Mass/volume] in BloodOrdered By: David Khan on 06-24-2023 Hemoglobin (Bld) [Mass/Vol] 13.4 g/dL 13.0-17.0 [facility] Ketones Auto test strip (U) [Mass/Vol]Ordered By: David Khan on 06-24-2023 Ketones (U) [Mass/Vol] Trace Negative [facility] - UrinalysisOrder ed By: David Khan on 06-24-2023 Hyaline casts LM Ql (Urine sed) 9-19 [LPF] 0-8 [facility] Leukocytes [#/volume] correc billy for nucleated erythrocytes in Blood by Automated counOrdered By: David Khan on 06-24-2023 WBC corrected for nucl RBC Auto (Bld) [#/Vol] 8.7 10*3/uL 4.1-10.5 [facility] Lymphocytes Auto (Bld) [#/Vo l]Ordered By: David Khan on 06-24-2023 Lymphocytes (Bld) [#/Vol] 1.2 10*3/uL 1.00-4.8 [facility] Lymphocytes/100 WBC Auto (Bl d)Ordered By: David Khan on 06-24-2023 Lymphocytes/100 WBC (Bld) 13.5 % . [facility] MCH Auto (RBC) [Entitic mass ]Ordered By: David Khan on 06-24-2023 MCH (RBC) [Entitic mass] 33.0 pg 27.5-35.2 [facility] MCHC Auto (RBC) [Mass/Vol]Or dered By: David Khan on 06-24-2023 MCHC (RBC) [Mass/Vol] 35.1 g/dL 32.5-35.6 [facility] MCV Auto (RBC) [Entitic vol] Ordered By: David Khan on 06-24-2023 MCV (RBC) [Entitic vol] 94.0 fL 83.5-101 [facility] Monocyte distribution width [Entitic volume] in Blood by AutomatedOrdered By: David Khan on 06-24-2023 Monocyte distribution width Auto (Bld) [Entitic vol] 19.27 % 0.00-20.00 [facility] Monocytes Auto (Bld) [#/Vol] Ordered By: David Khan on 06-24-2023 Monocytes (Bld) [#/Vol] 0.5 10*3/uL 0.0-0.8 [facility] Monocytes/100 WBC Auto (Bld) Ordered By: David Khan on 06-24-2023 Monocytes/100 WBC (Bld) 5.2 % . [facility] Natriuretic peptide B [Mass/ Vol]Ordered By: Bucky Cheng on 06-24-2023 Natriuretic peptide B (Bld) [Mass/Vol] 17.0 pg/mL 5-100 [facility] Neutrophils Auto (Bld) [#/Vo l]Ordered By: David Khan on 06-24-2023 Neutrophils (Bld) [#/Vol] 7.0 10*3/uL 1.8-7.7 [facility] Neutrophils/100 WBC Auto (Bl d)Ordered By: David Khan on 06-24-2023 Neutrophils/100 WBC (Bld) 80.2 % . [facility] Nitrite Test strip Ql (U)Ord ered By: David Khan on 06-24-2023 Nitrite Ql (U) Negative Negative [facility] No Panel InformationOrdered By: David Khan on 06-24-2023 Estimated GFR (CKD-EPI) 49.706 mL/Min [facility] Creatinine Clearance (Chem 53.79 [facility] Nucleated erythrocytes [Pres ence] in Blood by Automated countOrdered By: David Khan on 06-24-2023 Nucleated RBC Auto Ql (Bld) 0.1 /100{WBC} 0-0.5 [facility] Platelet mean volume Auto (B ld) [Entitic vol]Ordered By: David Khan on 06-24-2023 Platelet mean volume (Bld) [Entitic vol] 8.6 fL 6.6-10.1 [facility] Platelets Auto (Bld) [#/Vol] Ordered By: David Khan on 06-24-2023 Platelets (Bld) [#/Vol] 204 10*3/uL 150-450 [facility] Potassium [Moles/volume] in Serum or PlasmaOrdered By: David Khan on 06-24-2023 Potassium [Moles/Vol] 4.7 mmol/L 3.5-5.1 [facility] Protein Auto test strip (U) [Mass/Vol]Ordered By: David Khan on 06-24-2023 Protein (U) [Mass/Vol] 30 mg/dL Negative Fi [facility] Protein [Mass/volume] in Ser um or PlasmaOrdered By: David Khan on 06-24-2023 Protein [Mass/Vol] 7.1 g/dL 6.4-8.9 [facility] RBC Auto (Bld) [#/Vol]Ordere d By: David Olsensain on 06-24-2023 RBC (Bld) [#/Vol] 4.07 10*6/uL 3.90-5.60 [facility] Serum or plasma albumin/glob ulin mass ratioOrdered By: Davidfátima OlsenBill on 06-24-2023 Albumin/Globulin [Mass ratio] 1.4 {ratio} [facility] Serum or plasma anion gap de terminationOrdered By: Davidfátima OlsenBill on 06-24-2023 Anion gap [Moles/Vol] 14.6 mmol/L 6.0-15.0 [facility] Sodium [Moles/volume] in Ser um or PlasmaOrdered By: David Bill on 06-24-2023 Sodium [Moles/Vol] 131 mmol/L 136-145 [facility] Specific gravity Auto test s trip (U) [Rel density]Ordered By: [facility] Bill on 06-24-2023 Specific gravity (U) [Rel density] 1.029 1.001-1.030 [facility] Squamous epithelial cells de tection in urine sediment by light microscopyOrdered By: Davidfátima OlsenBill on 06-24-2023 Epithelial cells.squamous LM Ql (Urine sed) 0-1 [HPF] 0-2 [facility] Troponin I High Sensitivityo n 06-24-2023 Troponin I High Sensitivity 8.4 pg/mL Normal 0.0-20.0 [facility] Comment on above: Result Comment: PERF ORMED BY: [place] [address] PATHOLOGIST [employer] ANIL GUAMAN M.D. Performed By: #### C MP, TSH3, LIPID #### [address] Troponin I.cardiac [Mass/vol ume] in Serum or Plasma by Detection limit <= 0.01 ng/Ordered By: Bucky Cheng on 06-24-2023 Troponin I.cardiac DL <= 0.01 ng/mL [Mass/Vol] 8.4 pg/mL 0.0-20.0 [facility] Urea nitrogen [Mass/volume] in Serum or PlasmaOrdered By: David Khan on 06-24-2023 Urea nitrogen [Mass/Vol] 26 mg/dL 7 [facility] Urine bacteria detection by automated methodOrdered By: David Khan on 06-24-2023 Bacteria Auto Ql (U) None seen None Seen [facility] Urine clarity by refractomet ry automatedOrdered By: David Khan on 06-24-2023 Clarity Refractometry automated (U) Clear Clear [facility] Urine glucose measurement by automated test strip (mass/volume)Ordered By: David Khan on 06-24-2023 Glucose Auto test strip (U) [Mass/Vol] >=1000 mg/dL Normal [facility] Urine hemoglobin detection b y automated test stripOrdered By: David Khan on 06-24-2023 Hemoglobin Auto test strip Ql (U) Negative Negative [facility] Urine leukocyte esterase det ection by automated test stripOrdered By: David Khan on 06-24-2023 Leukocyte esterase Auto test strip Ql (U) Negative Negative [facility] Urobilinogen Auto test strip (U) [Mass/Vol]Ordered By: David Khan on 06-24-2023 Urobilinogen (U) [Mass/Vol] Normal mg/dL Normal [facility] WBC Auto (Bld) [#/Vol]Ordere d By: David Khan on 06-24-2023 WBC (Bld) [#/Vol] 8.7 10*3/uL 4.1-10.5 [facility] XR chest 1V portableon 06-24 XR chest 1V portable [place] [id number] XRay Report Signed 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 MR#: [id number] : 1970 Acct:[id number] Age/Sex: 52 / M ADM Date: 06/24/23 Loc: ER Room: Type: [facility] ER Attending Dr: Copies to: Bucky Cheng [...] Crow Parker M.D.06/24/2023 10:45 AM Dictation Location: [place] [address] Transcribed By: [facility] 06/24/23 1045 Dictated By: Crow Parker DO 06/24/23 1044 Signed By: 06/24/23 1045 Normal [facility] pH Auto test strip (U)Ordere d By: David Khan on 06-24-2023 pH (U) 5.5 [pH] 5.0-9.0 [facility] Basic Metabolic Panelon 06-0 Anion gap [Moles/Vol] 11.2 mmol/L Normal 6.0-15.0 [facility] Comment on above: Performed By: #### V BG #### Point of Care testing , Calcium [Mass/Vol] 8.5 mg/dL Low 8.6-10.3 [facility] Comment on above: Performed By: #### V BG #### Point of Care testing , Chloride [Moles/Vol] 100 mmol/L Normal 98-107 [facility] Comment on above: Performed By: #### V BG #### Point of Care testing , CO2 [Moles/Vol] 28.5 mmol/L Normal 21.0-31.0 [facility] Comment on above: Performed By: #### V BG #### Point of Care testing , Creatinine [Mass/Vol] 0.90 mg/dL Normal 0.70-1.30 [facility] Comment on above: Performed By: #### V BG #### Point of Care testing , Creatinine Clr Calc Pharmacy 87.99 [facility] Comment on above: Performed By: #### V BG #### Point of Care testing , GFR/1.73 sq M.predicted MDRD (S/P/Bld) [Vol rate/Area] mL/min/{1.73_m2} [facility] Comment on above: Performed By: #### V BG #### Point of Care testing , Glucose [Mass/Vol] 224 mg/dL High 70-100 [facility] Comment on above: Result Comment: [facility] Glucose Reference Range is dependent on time and content of last meal. Glucose of more than 200 mg/dL in a nonstressed, ambulatory subject supports the diagnosis of Diabetes Mellitus. ADA recommended reference range Performed By: #### V BG #### Point of Care testing , Potassium [Moles/Vol] 3.7 mmol/L Normal 3.5-5.1 [facility] Comment on above: Performed By: #### V BG #### Point of Care testing , Sodium [Moles/Vol] 136 mmol/L Normal 136-145 [facility] Comment on above: Performed By: #### V BG #### Point of Care testing , Urea nitrogen [Mass/Vol] 16 mg/dL Normal 7-25 [facility] Comment on above: Performed By: #### V BG #### Point of Care testing , Basophils Auto (Bld) [#/Vol] Ordered By: Eldon Ambriz on 05-05-2023 Basophils (Bld) [#/Vol] 0.0 10*3/uL 0.0-0.2 [facility] Basophils/100 WBC Auto (Bld) Ordered By: Eldon Ambriz on 05-05-2023 Basophils/100 WBC (Bld) 0.9 % . [facility] Calcium [Mass/volume] in Ser um or PlasmaOrdered By: Eldon Ambriz on 05-05-2023 Calcium [Mass/Vol] 8.5 mg/dL 8.6-10.3 [facility] Carbon dioxide, total [Moles /volume] in Serum or PlasmaOrdered By: Eldon Ambriz on 05-05-2023 CO2 [Moles/Vol] 28.5 mmol/L 21.0-31.0 [facility] Chloride [Moles/volume] in S tino or PlasmaOrdered By: Eldon Ambriz on 05-05-2023 Chloride [Moles/Vol] 100 mmol/L 98-107 [facility] Complete Blood Count Auto Di ffon 05-05-2023 Basophils (Bld) [#/Vol] 0.0 10*3/uL Normal 0.0-0.2 [facility] Comment on above: Result Comment: PERF ORMED BY: [facility] [address] [place] [address] PATHOLOGIST [employer] ANIL GUAMAN M.D. Performed By: #### V BG #### Point of Care testing , Basophils/100 WBC (Bld) 0.9 % Normal . [facility] Comment on above: Performed By: #### V BG #### Point of Care testing , Eosinophils (Bld) [#/Vol] 0.1 10*3/uL Normal 0.0-0.45 [facility] Comment on above: Performed By: #### V BG #### Point of Care testing , Eosinophils/100 WBC (Bld) 2.0 % Normal . [facility] Comment on above: Performed By: #### V BG #### Point of Care testing , Erythrocyte distribution width (RBC) [Ratio] 12.6 % Normal 12.0-14.8 [facility] Comment on above: Performed By: #### V BG #### Point of Care testing , Hematocrit (Bld) [Volume fraction] 35.5 % Low 38.8-50.0 [facility] Comment on above: Performed By: #### V BG #### Point of Care testing , Hemoglobin (Bld) [Mass/Vol] 12.6 g/dL Low 13.0-17.0 [facility] Comment on above: Performed By: #### V BG #### Point of Care testing , Lymphocytes (Bld) [#/Vol] 1.9 10*3/uL Normal 1.00-4.8 [facility] Comment on above: Performed By: #### V BG #### Point of Care testing , Lymphocytes/100 WBC (Bld) 37.1 % Normal . [facility] Comment on above: Performed By: #### V BG #### Point of Care testing , MCH (RBC) [Entitic mass] 32.6 pg Normal 27.5-35.2 [facility] Comment on above: Performed By: #### V BG #### Point of Care testing , MCV (RBC) [Entitic vol] 91.5 fL Normal 83.5-101 [facility] Comment on above: Performed By: #### V BG #### Point of Care testing , Mean Corpuscular HGB Conc 35.6 g/dL Normal 32.5-35.6 [facility] Comment on above: Performed By: #### V BG #### Point of Care testing , Monocytes (Bld) [#/Vol] 0.4 10*3/uL Normal 0.0-0.8 [facility] Comment on above: Performed By: #### V BG #### Point of Care testing , Monocytes/100 WBC (Bld) 7.9 % Normal . [facility] Comment on above: Performed By: #### V BG #### Point of Care testing , Neutrophils (Bld) [#/Vol] 2.6 10*3/uL Normal 1.8-7.7 [facility] Comment on above: Performed By: #### V BG #### Point of Care testing , Neutrophils/100 WBC (Bld) 52.1 % Normal . [facility] Comment on above: Performed By: #### V BG #### Point of Care testing , NRBC% 0.2 /100{WBC} Normal 0-0.5 [facility] Comment on above: Performed By: #### V BG #### Point of Care testing , Platelet mean volume (Bld) [Entitic vol] 9.2 fL Normal 6.6-10.1 [facility] Comment on above: Performed By: #### V BG #### Point of Care testing , Platelets (Bld) [#/Vol] 137 10*3/uL Low 150-450 [facility] Comment on above: Performed By: #### V BG #### Point of Care testing , RBC (Bld) [#/Vol] 3.88 10*6/uL Low 3.90-5.60 [facility] Comment on above: Performed By: #### V BG #### Point of Care testing , WBC (Bld) [#/Vol] 5.0 10*3/uL Normal 4.1-10.5 [facility] Comment on above: Performed By: #### V BG #### Point of Care testing , Creatinine [Mass/volume] in Serum or PlasmaOrdered By: Eldon Ambriz on 05-05-2023 Creatinine [Mass/Vol] 0.90 mg/dL 0.70-1.30 [facility] Eosinophils Auto (Bld) [#/Vo l]Ordered By: Eldon Ambriz on 05-05-2023 Eosinophils (Bld) [#/Vol] 0.1 10*3/uL 0.0-0.45 [facility] Eosinophils/100 WBC Auto (Bl d)Ordered By: Eldon Ambriz on 05-05-2023 Eosinophils/100 WBC (Bld) 2.0 % . [facility] Erythrocyte distribution wid th Auto (RBC) [Ratio]Ordered By: Eldon Ambriz on 05-05-2023 Erythrocyte distribution width (RBC) [Ratio] 12.6 % 12.0-14.8 [facility] Glucose [Mass/volume] in Ser um or PlasmaOrdered By: Eldon Ambriz on 05-05-2023 Glucose [Mass/Vol] 224 mg/dL 70-100 [facility] Comment on above: ADA recommended refe rence rangeRandom Glucose Reference Range is dependent on time and content of last meal. Glucose of more than 200 mg/dL in a nonstressed, ambulatory subject supports the diagnosis of Diabetes Mellitus. Hematocrit Auto (Bld) [Volum e fraction]Ordered By: Eldon Ambriz on 05-05-2023 Hematocrit (Bld) [Volume fraction] 35.5 % 38.8-50.0 [facility] Hemoglobin [Mass/volume] in BloodOrdered By: Eldon Ambriz on 05-05-2023 Hemoglobin (Bld) [Mass/Vol] 12.6 g/dL 13.0-17.0 [facility] Leukocytes [#/volume] correc billy for nucleated erythrocytes in Blood by Automated counOrdered By: Eldon Ambriz on 05-05-2023 WBC corrected for nucl RBC Auto (Bld) [#/Vol] 5.0 10*3/uL 4.1-10.5 [facility] Lymphocytes Auto (Bld) [#/Vo l]Ordered By: Eldnohaylee Ambriz on 05-05-2023 Lymphocytes (Bld) [#/Vol] 1.9 10*3/uL 1.00-4.8 [facility] Lymphocytes/100 WBC Auto (Bl d)Ordered By: Eldon Ambriz on 05-05-2023 Lymphocytes/100 WBC (Bld) 37.1 % . [facility] MCH Auto (RBC) [Entitic mass ]Ordered By: Eldon Ambriz on 05-05-2023 MCH (RBC) [Entitic mass] 32.6 pg 27.5-35.2 [facility] MCHC Auto (RBC) [Mass/Vol]Or dered By: Eldon Ambriz on 05-05-2023 MCHC (RBC) [Mass/Vol] 35.6 g/dL 32.5-35.6 [facility] MCV Auto (RBC) [Entitic vol] Ordered By: Eldon Ambriz on 05-05-2023 MCV (RBC) [Entitic vol] 91.5 fL 83.5-101 [facility] Magnesiumon 05-05-2023 Magnesium [Mass/Vol] 1.3 mg/dL Low 1.9-2.7 [facility] Comment on above: Result Comment: PERF ORMED BY: [facility] [address] [place] [address] PATHOLOGIST [employer] ANIL GUAMAN M.D. Performed By: #### V BG #### Point of Care testing , Magnesium [Mass/volume] in S tino or PlasmaOrdered By: Eldon Ambriz on 05-05-2023 Magnesium [Mass/Vol] 1.3 mg/dL 1.9-2.7 [facility] Monocytes Auto (Bld) [#/Vol] Ordered By: Eldon Ambriz on 05-05-2023 Monocytes (Bld) [#/Vol] 0.4 10*3/uL 0.0-0.8 [facility] Monocytes/100 WBC Auto (Bld) Ordered By: Eldon Ambriz on 05-05-2023 Monocytes/100 WBC (Bld) 7.9 % . [facility] Neutrophils Auto (Bld) [#/Vo l]Ordered By: Eldon Ambriz on 05-05-2023 Neutrophils (Bld) [#/Vol] 2.6 10*3/uL 1.8-7.7 [facility] Neutrophils/100 WBC Auto (Bl d)Ordered By: Eldon Ambriz on 05-05-2023 Neutrophils/100 WBC (Bld) 52.1 % . [facility] No Panel InformationOrdered By: Eldon Ambriz on 05-05-2023 Estimated GFR (CKD-EPI) > 60.0 mL/Min [facility] Creatinine Clearance (Chem 87.99 [facility] Nucleated erythrocytes [Pres ence] in Blood by Automated countOrdered By: Eldon Ambriz on 05-05-2023 Nucleated RBC Auto Ql (Bld) 0.2 /100{WBC} 0-0.5 [facility] Platelet mean volume Auto (B ld) [Entitic vol]Ordered By: Eldon Ambriz on 05-05-2023 Platelet mean volume (Bld) [Entitic vol] 9.2 fL 6.6-10.1 [facility] Platelets Auto (Bld) [#/Vol] Ordered By: Eldon Ambriz on 05-05-2023 Platelets (Bld) [#/Vol] 137 10*3/uL 150-450 [facility] Potassium [Moles/volume] in Serum or PlasmaOrdered By: Eldon Ambriz on 05-05-2023 Potassium [Moles/Vol] 3.7 mmol/L 3.5-5.1 [facility] RBC Auto (Bld) [#/Vol]Ordere d By: Eldon Ambriz on 05-05-2023 RBC (Bld) [#/Vol] 3.88 10*6/uL 3.90-5.60 [facility] Serum or plasma anion gap de terminationOrdered By: Eldon Ambriz on 05-05-2023 Anion gap [Moles/Vol] 11.2 mmol/L 6.0-15.0 [facility] Sodium [Moles/volume] in Ser um or PlasmaOrdered By: Eldon Ambriz on 05-05-2023 Sodium [Moles/Vol] 136 mmol/L 136-145 [facility] Urea nitrogen [Mass/volume] in Serum or PlasmaOrdered By: Eldon Ambriz on 05-05-2023 Urea nitrogen [Mass/Vol] 16 mg/dL 7-25 [facility] WBC Auto (Bld) [#/Vol]Ordere d By: Eldon Ambriz on 05-05-2023 WBC (Bld) [#/Vol] 5.0 10*3/uL 4.1-10.5 [facility] Alanine aminotransferase [En zymatic activity/volume] in Serum or PlasmaOrdered By: Eldon Ambriz on 05-04-2023 ALT [Catalytic activity/Vol] 9 U/L 7-52 [facility] Albumin [Mass/volume] in Ser um or Plasma by Bromocresol green (BCG) dye binding methoOrdered By: Eldon Ambriz on 05-04-2023 Albumin BCG dye [Mass/Vol] 3.8 g/dL 3.5-5.7 [facility] Alkaline phosphatase [Enzyma tic activity/volume] in Serum or PlasmaOrdered By: Eldon Ambriz on 05-04-2023 ALP [Catalytic activity/Vol] 59 U/L 34-104 [facility] Aspartate aminotransferase [ Enzymatic activity/volume] in Serum or PlasmaOrdered By: Eldon Ambriz on 05-04-2023 AST [Catalytic activity/Vol] 10 U/L 13-39 [facility] Bilirubin.total [Mass/volume ] in Serum or PlasmaOrdered By: Eldon Ambriz on 05-04-2023 Bilirubin [Mass/Vol] 1.1 mg/dL 0.3-1.0 [facility] Cholesterol [Mass/volume] in Serum or PlasmaOrdered By: Eldon Ambriz on 05-04-2023 Cholesterol [Mass/Vol] 150 mg/dL 140-200 [facility] Comment on above: Chol less than 200 m g/dl low riskChol 201-239 mg/dl borderline riskChol 240 mg/dl and greater high risk Cholesterol in LDL Calc [Mas s/Vol]Ordered By: Eldon Ambriz on 05-04-2023 Cholesterol in LDL [Mass/Vol] 72 mg/dL 0-100 [facility] Comment on above: LDL ATP III CLASSIFI CATIONLDL less than 100 mg/dL OptimalLDL 100-129 mg/dL Near or above optimalLDL 130-159 mg/dL Borderline highLDL 160-189 mg/dL HighLDL greater than 189 mg/dL Very high Cholesterol in VLDL Calc [Ma ss/Vol]Ordered By: Eldon Ambriz on 05-04-2023 Cholesterol in VLDL [Mass/Vol] 42 mg/dL [facility] Complete Blood Count Auto Di ffon 05-04-2023 Basophils (Bld) [#/Vol] 0.0 10*3/uL Normal 0.0-0.2 [facility] Comment on above: Result Comment: PERF ORMED BY: [place] [address] PATHOLOGIST [employer] ANIL GUAMAN M.D. Performed By: #### C MP TSH3, LIPID #### [facility] [address] [place] [address] Basophils/100 WBC (Bld) 0.7 % Normal . [facility] Comment on above: Performed By: #### C MP, TSH3, LIPID #### [facility] [address] [place] [address] Eosinophils (Bld) [#/Vol] 0.1 10*3/uL Normal 0.0-0.45 [facility] Comment on above: Performed By: #### C MP, TSH3, LIPID #### [address] Eosinophils/100 WBC (Bld) 1.1 % Normal . [facility] Comment on above: Performed By: #### C MP, TSH3, LIPID #### [address] Erythrocyte distribution width (RBC) [Ratio] 12.4 % Normal 12.0-14.8 [facility] Comment on above: Performed By: #### C MP, TSH3, LIPID #### [address] Hematocrit (Bld) [Volume fraction] 36.2 % Low 38.8-50.0 [facility] [facility] Comment on above: Performed By: #### C MP, TSH3, LIPID #### [address] Hemoglobin (Bld) [Mass/Vol] 12.8 g/dL Low 13.0-17.0 [facility] Comment on above: Performed By: #### C MP, TSH3, LIPID #### [address] Lymphocytes (Bld) [#/Vol] 1.8 10*3/uL Normal 1.00-4.8 [facility] Comment on above: Performed By: #### C MP, TSH3, LIPID #### [place] [address] [place] Lymphocytes/100 WBC (Bld) 34.9 % Normal . [facility] Comment on above: Performed By: #### C MP, TSH3, LIPID #### [address] MCH (RBC) [Entitic mass] 32.5 pg Normal 27.5-35.2 [facility] Comment on above: Performed By: #### C MP, TSH3, LIPID #### [facility] [address] MCV (RBC) [Entitic vol] 92.1 fL Normal 83.5-101 [facility] Comment on above: Performed By: #### C MP, TSH3, LIPID #### [address] Mean Corpuscular HGB Conc 35.3 g/dL Normal 32.5-35.6 [facility] Comment on above: Performed By: #### C MP, TSH3, LIPID #### [address] Monocytes (Bld) [#/Vol] 0.4 10*3/uL Normal 0.0-0.8 [facility] Comment on above: Performed By: #### C MP, TSH3, LIPID #### [address] Monocytes/100 WBC (Bld) 7.6 % Normal . [facility] Comment on above: Performed By: #### C MP, TSH3, LIPID #### [place] [address] [place] Neutrophils (Bld) [#/Vol] 2.9 10*3/uL Normal 1.8-7.7 [facility] Comment on above: Performed By: #### C MP, TSH3, LIPID #### [place] [address] [place] Neutrophils/100 WBC (Bld) 55.7 % Normal . [facility] Comment on above: Performed By: #### C MP, TSH3, LIPID #### [place] [address] [place] NRBC% 0.3 /100{WBC} Normal 0-0.5 [facility] Comment on above: Performed By: #### C MP, TSH3, LIPID #### [address] Platelet mean volume (Bld) [Entitic vol] 9.2 fL Normal 6.6-10.1 [facility] Comment on above: Performed By: #### C MP, TSH3, LIPID #### [facility] [address] Platelets (Bld) [#/Vol] 145 10*3/uL Low 150-450 [facility] Comment on above: Performed By: #### C MP, TSH3, LIPID #### [address] RBC (Bld) [#/Vol] 3.92 10*6/uL Normal 3.90-5.60 [facility] Comment on above: Performed By: #### C MP, TSH3, LIPID #### [address] WBC (Bld) [#/Vol] 5.1 10*3/uL Normal 4.1-10.5 [facility] Comment on above: Performed By: #### C MP, TSH3, LIPID #### [address] Comprehensive Metabolic Pane rudolph 05-04-2023 Albumin [Mass/Vol] 3.8 g/dL Normal 3.5-5.7 [facility] Comment on above: Order Comment: Reaso n for Exam Weight loss;Nausea vomiting;Type 2 diabetes mellitus with PT IS FASTING Performed By: #### C MP, TSH3, LIPID #### [address] Albumin/Globulin [Mass ratio] 1.7 {ratio} Normal [facility] Comment on above: Order Comment: Reaso n for Exam Weight loss;Nausea vomiting;Type 2 diabetes mellitus with PT IS FASTING Performed By: #### C MP, TSH3, LIPID #### [address] ALP [Catalytic activity/Vol] 59 U/L Normal 34-104 [facility] Comment on above: Order Comment: Reaso n for Exam Weight loss;Nausea vomiting;Type 2 diabetes mellitus with PT IS FASTING Performed By: #### C MP, TSH3, LIPID #### [facility] [address] ALT [Catalytic activity/Vol] 9 U/L Normal 7-52 [facility] Comment on above: Order Comment: Reaso n for Exam Weight loss;Nausea vomiting;Type 2 diabetes mellitus with PT IS FASTING Performed By: #### C MP, TSH3, LIPID #### [facility] [address] Anion gap [Moles/Vol] 11.4 mmol/L Normal 6.0-15.0 [facility] Comment on above: Order Comment: Reaso n for Exam Weight loss;Nausea vomiting;Type 2 diabetes mellitus with PT IS FASTING Performed By: #### C MP, TSH3, LIPID #### [facility] [address] AST [Catalytic activity/Vol] 10 U/L Low 13-39 [facility] Comment on above: Order Comment: Reaso n for Exam Weight loss;Nausea vomiting;Type 2 diabetes mellitus with PT IS FASTING Performed By: #### C MP, TSH3, LIPID #### [facility] [address] Bilirubin [Mass/Vol] 1.1 mg/dL High 0.3-1.0 [facility] Comment on above: Order Comment: Reaso n for Exam Weight loss;Nausea vomiting;Type 2 diabetes mellitus with PT IS FASTING Performed By: #### C MP, TSH3, LIPID #### [facility] [address] [place] [address] [place] Calcium [Mass/Vol] 8.7 mg/dL Normal 8.6-10.3 [facility] Comment on above: Order Comment: Reaso n for Exam Weight loss;Nausea vomiting;Type 2 diabetes mellitus with PT IS FASTING Performed By: #### C MP, TSH3, LIPID #### [facility] [address] [place] [address] [place] Chloride [Moles/Vol] 100 mmol/L Normal 98-107 [facility] Comment on above: Order Comment: Reaso n for Exam Weight loss;Nausea vomiting;Type 2 diabetes mellitus with PT IS FASTING Performed By: #### C MP, TSH3, LIPID #### [facility] [address] [place] [address] [place] CO2 [Moles/Vol] 28.8 mmol/L Normal 21.0-31.0 [facility] Comment on above: Order Comment: Reaso n for Exam Weight loss;Nausea vomiting;Type 2 diabetes mellitus with PT IS FASTING Performed By: #### C MP, TSH3, LIPID #### [facility] [address] Creatinine [Mass/Vol] 1.18 mg/dL Significan t change down 0.70-1.30 [facility] Comment on above: Order Comment: Reaso n for Exam Weight loss;Nausea vomiting;Type 2 diabetes mellitus with PT IS FASTING Performed By: #### C MP, TSH3, LIPID #### [facility] [address] [place] [address] [place] Creatinine Clr Calc Pharmacy 67.11 [facility] Comment on above: Order Comment: Reaso n for Exam Weight loss;Nausea vomiting;Type 2 diabetes mellitus with PT IS FASTING Performed By: #### C MP, TSH3, LIPID #### [facility] [address] [place] [address] [place] GFR/1.73 sq M.predicted MDRD (S/P/Bld) [Vol rate/Area] mL/min/{1.73_m2} [facility] Comment on above: Order Comment: Reaso n for Exam Weight loss;Nausea vomiting;Type 2 diabetes mellitus with PT IS FASTING Performed By: #### C MP, TSH3, LIPID #### [facility] [address] Globulin (S) [Mass/Vol] 2.2 g/dL [facility] Comment on above: Order Comment: Reaso n for Exam Weight loss;Nausea vomiting;Type 2 diabetes mellitus with PT IS FASTING Performed By: #### C MP, TSH3, LIPID #### [facility] [address] Glucose [Mass/Vol] 226 mg/dL Significant change up 70-100 [facility] Comment on above: Order Comment: Reaso n for Exam Weight loss;Nausea vomiting;Type 2 diabetes mellitus with PT IS FASTING Result Comment: [place]ado Glucose Reference Range is dependent on time and content of last meal. Glucose of more than 200 mg/dL in a nonstressed, ambulatory subject supports the diagnosis of Diabetes Mellitus. ADA recommended reference range Performed By: #### C MP, TSH3, LIPID #### [facility] [address] Potassium [Moles/Vol] 3.2 mmol/L Low 3.5-5.1 [facility] Comment on above: Order Comment: Reaso n for Exam Weight loss;Nausea vomiting;Type 2 diabetes mellitus with PT IS FASTING Performed By: #### C MP, TSH3, LIPID #### [facility] [address] [place] [address] [place] Protein [Mass/Vol] 6.0 g/dL Low 6.4-8.9 [facility] Comment on above: Order Comment: Reaso n for Exam Weight loss;Nausea vomiting;Type 2 diabetes mellitus with PT IS FASTING Performed By: #### C MP, TSH3, LIPID #### [facility] [address] [place] [address] [place] Sodium [Moles/Vol] 137 mmol/L Normal 136-145 [facility] Comment on above: Order Comment: Reaso n for Exam Weight loss;Nausea vomiting;Type 2 diabetes mellitus with PT IS FASTING Performed By: #### C MP, TSH3, LIPID #### [facility] [address] [place] [id number] [place] Urea nitrogen [Mass/Vol] 28 mg/dL High 7-25 [facility] Comment on above: Order Comment: Reaso n for Exam Weight loss;Nausea vomiting;Type 2 diabetes mellitus with PT IS FASTING Performed By: #### C MP, TSH3, LIPID #### [facility] [address] [place] [id number] [place] ECG 12 lead ECGon 05-04-2023 ECG 12 lead ECG [facility] [place] [address] [place] [address] Electrocardiograph Report Signed 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 MR#: [id number] : 1970 Acct:[id number] Age/Sex: 52 / M ADM Date: 05/03/23 Loc: Room: [address] [place] [address] Type: ADM IN Attending Dr: Eldon Ambriz [...] Signed By Crow Dean DO 05/05 0748 [facility] Globulin Calc (S) [Mass/Vol] Ordered By: Eldon Ambriz on 05-04-2023 Globulin (S) [Mass/Vol] 2.2 g/dL [facility] Glucose Glucometer (BldC) [M ass/Vol]Ordered By: Eldon Ambriz on 05-04-2023 Glucose [Mass/Vol] 260 mg/dL [facility] Comment on above: Random Glucose Refer ence Range is dependent on time and content of last meal. Glucose of more than 200 mg/dL in a nonstressed, ambulatory subject supports the diagnosis of Diabetes Mellitus. Glucose Poct Glucometerson 0 05-04-2023 Commemt1 Glu2: Cleaned Meter Normal [facility] Comment on above: Result Comment: PERF ORMED BY: [place] [address] PATHOLOGIST [employer] BUILDER ANIL GUAMAN M.D. Performed By: #### C MP, TSH3, LIPID #### [address] Glucose [Mass/Vol] 260 mg/dL Normal [facility] Comment on above: Result Comment: Mikado om Glucose Reference Range is dependent on time and content of last meal. Glucose of more than 200 mg/dL in a nonstressed, ambulatory subject supports the diagnosis of Diabetes Mellitus. Performed By: #### C ORI TSH3, LIPID #### [address] Glucose [Mass/Vol] 291 mg/dL Normal [facility] Comment on above: Result Comment: [place] om Glucose Reference Range is dependent on time and content of last meal. Glucose of more than 200 mg/dL in a nonstressed, ambulatory subject supports the diagnosis of Diabetes Mellitus. PERFORMED BY: [place] [address] PATHOLOGIST [employer] BU[employer] ANIL GUAMAN M.D. Performed By: #### C ORI TSH3, LIPID #### [address] Lipid Panelon 05-04-2023 Cholesterol [Mass/Vol] 150 mg/dL Normal 140-200 [facility] Comment on above: Order Comment: Reaso n for Exam Weight loss;Nausea vomiting;Type 2 diabetes mellitus with PT IS FASTING Result Comment: Chol less than 200 mg/dl low risk Chol 201-239 mg/dl borderline risk Chol 240 mg/dl and greater high risk Performed By: #### C ORI TSH3, LIPID #### [address] Cholesterol in HDL [Mass/Vol] 36 mg/dL Normal 23-92 [facility] Comment on above: Order Comment: Reaso n for Exam Weight loss;Nausea vomiting;Type 2 diabetes mellitus with PT IS FASTING Result Comment: HDL CHOL ATP-III CLASSIFICATION Cardiovascular Risk HDL > or equal to 60 mg/dL LOW HDL < 40 mg/dL HIGH Performed By: #### C ORI TSH3, LIPID #### [address] Cholesterol.total/Chol esterol in HDL [Mass ratio] 4.2 {ratio} Normal <5.0 [facility] Comment on above: Order Comment: Reaso n for Exam Weight loss;Nausea vomiting;Type 2 diabetes mellitus with PT IS FASTING Result Comment: PERF ORMED BY: [place] [address] PATHOLOGIST [employer] BU[employer]DER ANIL GUAMAN M.D. Performed By: #### C MP, TSH3, LIPID #### [address] LDL Cholesterol,Calculated 72 mg/dL Normal 0-100 [facility] Comment on above: Order Comment: Reaso n for Exam Weight loss;Nausea vomiting;Type 2 diabetes mellitus with PT IS FASTING Result Comment: LDL ATP III CLASSIFICATION LDL less than 100 mg/dL Optimal LDL 100-129 mg/dL Near or above optimal LDL 130-159 mg/dL Borderline high LDL 160-189 mg/dL High LDL greater than 189 mg/dL Very high Performed By: #### C MP, TSH3, LIPID #### [address] Triglyceride w/Reflex 211 mg/dL High 0-149 [facility] Comment on above: Order Comment: Reaso [...] By: #### C MP, TSH3, LIPID #### [address] VLDL CHOLESTEROL 42 mg/dL Normal [facility] Comment on above: Order Comment: Reaso n for Exam Weight loss;Nausea vomiting;Type 2 diabetes mellitus with PT IS FASTING Performed By: #### C MP, TSH3, LIPID #### [facility] [address] [place] [address] No Panel InformationOrdered By: Eldon Ambriz on 05-04-2023 Bedside Glucose Comment Glu2: cleaned meter [facility] Protein [Mass/volume] in Ser um or PlasmaOrdered By: Eldon Ambriz on 05-04-2023 Protein [Mass/Vol] 6.0 g/dL 6.4-8.9 [facility] Serum or plasma albumin/glob ulin mass ratioOrdered By: Eldon Ambriz on 05-04-2023 Albumin/Globulin [Mass ratio] 1.7 {ratio} [facility] Serum or plasma high density lipoprotein (HDL) cholesterol measurementOrdered By: Eldon Ambriz on 05-04-2023 Cholesterol in HDL [Mass/Vol] 36 mg/dL 23-92 [facility] Comment on above: HDL CHOL ATP-III CLA SSIFICATION Cardiovascular RiskHDL > or equal to 60 mg/dL LOWHDL < 40 mg/dL HIGH Serum or plasma total choles terol/high density lipoprotein (HDL) cholesterol mass ratOrdered By: Eldon Ambriz on 05-04-2023 Cholesterol.total/Chol esterol in HDL [Mass ratio] 4.2 {ratio} <5.0 [facility] Triglyceride [Mass/volume] i n Serum or PlasmaOrdered By: Eldon Ambriz on 05-04-2023 Triglyceride [Mass/Vol] 211 mg/dL 0-149 [facility] Comment on above: TRIG ATP III CLASSIF ICATIONTRIG less than 150 mg/dL NormalTRIG 150-199 mg/dL Borderline highTRIG 200-500 mg/dL High TRIG greater than 500 mg/dL Very highStandard traceable to the Center for Disease Conrtrol and Prevention (CDC) test method. US renal BIon 05-04-2023 US renal BI [facility] [place] [place] [address] Ultrasound Report Signed 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 MR#: [id number] : 1970 Acct:[id number] Age/Sex: 52 / M ADM Date: 05/03/23 Loc: Room: [address] [place] [address] Type: ADM IN Attending Dr: Eldon Ambriz [...] shadowing calculi or hydronephrosis are identified. The snack foods mixer operator raised question of a possible left [...] Flor Almonte M.D.05/04/2023 9:43 AM Dictation Location: [place] [address] Tech: Dyan Zambrano Transcribed By: WILEY 05/04/23942 Dictated By: Flor Almonte MD 05/04/23931 Signed By: 05/04/23942 [facility] A1C with Estimated Average G marilu 05-03-2023 Glucose [Mass/Vol] 266 mg/dL Normal [facility] Comment on above: Order Comment: Comme nt Add onto previous lab draw Result Comment: PERF ORMED BY: [place] [address] PATHOLOGIST [employer] BUILDER ANIL GUAMAN M.D. Performed By: #### C BC, LIPASE, HEPATIC, BMP #### [facility] [address] [place] [address] HbA1c (Bld) [Mass fraction] 10.9 % High 4.3-5.6 [facility] Comment on above: Order Comment: Commnenita nt Add onto previous lab draw Result Comment: Incr eased risk for diabetes: 5.7 - 6.4 diabetes: >6.4 glycemic control for adults with diabetes: <7.0 Performed By: #### C BC, LIPASE, HEPATIC, BMP #### [facility] [address] [place] [address] Activated partial thrombopla stin time (aPTT) in platelet poor plasma by coagulation aOrdered By: Preet Burrows on 05-03-2023 aPTT Coag (PPP) [Time] 22.8 s 25.1-36.5 [facility] Amphetamine Screen Ql (U)Ord ered By: Eldon Ambriz on 05-03-2023 Amphetamines Ql (U) Negative Negative [facility] B-Type Natriuretic Peptideon 05-03-2023 Natriuretic peptide B (Bld) [Mass/Vol] 20.0 pg/mL Normal 5-100 [facility] Comment on above: Result Comment: PERF ORMED BY: [facility] [address] [place] [address] PATHOLOGIST [employer] BUILDER ANIL GUAMAN M.D. Performed By: #### C MP, TSH3, LIPID #### [facility] [address] [place] [address] [place] Barbiturates [Presence] in U rine by Screen methodOrdered By: Eldon Ambriz on 05-03-2023 Barbiturates Screen Ql (U) Negative Negative [facility] Basic Metabolic Panelon Anion gap [Moles/Vol] 14.6 mmol/L Normal 6.0-15.0 [facility] Comment on above: Performed By: #### C MP, TSH3, LIPID #### [facility] [address] [place] [address] [place] Calcium [Mass/Vol] 9.6 mg/dL Normal 8.6-10.3 [facility] Comment on above: Performed By: #### C MP, TSH3, LIPID #### [facility] [address] [place] [address] [place] Chloride [Moles/Vol] 93 mmol/L Low 98-107 [facility] Comment on above: Performed By: #### C MP, TSH3, LIPID #### [facility] [address] [place] [id number] [place] CO2 [Moles/Vol] 28.5 mmol/L Normal 21.0-31.0 [facility] Comment on above: Performed By: #### C MP, TSH3, LIPID #### [facility] [address] [place] [id number] [place] Creatinine [Mass/Vol] 2.23 mg/dL High 0.70-1.30 [facility] Comment on above: Performed By: #### C MP, TSH3, LIPID #### [facility] [address] [place] [address] [place] Creatinine Clr Calc Pharmacy 35.50 [facility] Comment on above: Result Comment: PERF ORMED BY: [place] [address] PATHOLOGIST [employer] BUILDER ANIL GUAMAN M.D. Performed By: #### C MP, TSH3, LIPID #### [facility] [address] [place] [address] [place] GFR/1.73 sq M.predicted MDRD (S/P/Bld) [Vol rate/Area] 34.376 mL/min/{1.73_m2} [facility] Comment on above: Performed By: #### C MP, TSH3, LIPID #### [facility] [address] [place] [address] [place] Glucose [Mass/Vol] 350 mg/dL High 70-100 [facility] Comment on above: Result Comment: [facility] Glucose Reference Range is dependent on time and content of last meal. Glucose of more than 200 mg/dL in a nonstressed, ambulatory subject supports the diagnosis of Diabetes Mellitus. ADA recommended reference range Performed By: #### C MP, TSH3, LIPID #### [facility] [address] [place] [address] [place] Potassium [Moles/Vol] 4.1 mmol/L Normal 3.5-5.1 [facility] Comment on above: Performed By: #### C MP, TSH3, LIPID #### [facility] [address] [place] [address] [place] Sodium [Moles/Vol] 132 mmol/L Low 136-145 [facility] Comment on above: Performed By: #### C MP, TSH3, LIPID #### [facility] [address] [place] [address] [place] Urea nitrogen [Mass/Vol] 35 mg/dL High 7-25 [facility] Comment on above: Performed By: #### C MP, TSH3, LIPID #### [facility] [address] [place] [id number] [place] Basophils Auto (Bld) [#/Vol] Ordered By: Preet Burrows on 05-03-2023 Basophils (Bld) [#/Vol] 0.0 10*3/uL 0.0-0.2 [facility] Basophils/100 WBC Auto (Bld) Ordered By: Preet Burrows on 05-03-2023 Basophils/100 WBC (Bld) 0.3 % . [facility] Benzodiazepines Screen Ql (U )Ordered By: Eldon Ambriz on 05-03-2023 Benzodiazepines Ql (U) Negative Negative [facility] Benzoylecgonine [Presence] i n Urine by Screen methodOrdered By: Eldon Ambriz on 05-03-2023 Benzoylecgonine Screen Ql (U) Positive Negative [facility] Beta Hydroxybuterateon 05-03 Beta Hydroxybuterate 0.70 mmol/L High 0.02-0.27 [facility] Comment on above: Result Comment: PERF ORMED BY: [place] [address] PATHOLOGIST [employer] BUILDER ANIL GUAMAN M.D. Performed By: #### U RDS, ADDONUAPLUS #### [facility] [address] [place], [place] [id number] [facility] Beta hydroxybutyrate [Moles/ volume] in Serum or PlasmaOrdered By: Preet Burrows on 05-03-2023 Beta hydroxybutyrate [Moles/Vol] 0.70 mmol/L 0.02-0.27 [facility] Bilirubin Test strip Ql (U)O rdered By: Preet Burrows on 05-03-2023 Bilirubin Ql (U) Negative Negative [facility] BioFire Not Detectedon 05-03 BioFire Not Detected Not detected Normal Not Detecte [facility] Comment on above: Result Comment: This is a duplicate RP2.1 COVID (PCR) result to be used for statistical tracking purpose only. PERFORMED BY: [place] [address] PATHOLOGIST [employer] BUILDER ANIL GUAMAN M.D. Performed By: #### R AUDRA PANEL UPP., BIOFIRECOVNOTDE #### [facility] [address] [place] [id number] [facility] COVID-19 Detected/Not Detect edOrdered By: Eldon Ambriz on 05-03-2023 SARS-CoV-2 (COVID-19) RNA SILVIA+non-probe Ql (Nph) Not detected Not Detecte [facility] Comment on above: This is a duplicate RP2.1 COVID (PCR) result to be used for statistical tracking purpose only. Calcium [Mass/volume] in Ser um or PlasmaOrdered By: Preet Burrows on 05-03-2023 Calcium [Mass/Vol] 9.6 mg/dL 8.6-10.3 [facility] Cannabinoids [Presence] in U rine by Screen methodOrdered By: Eldon Ambriz on 05-03-2023 Cannabinoids Screen Ql (U) Negative Negative [facility] Comment on above: These are unconfirme d results and should not be used for legal purposes. Drug Cut-Off Concentration: AMPH 1000 ng/mL CHRISTINA 200 ng/mL CHRISTIANO 200 ng/mL COCM 300 ng/mL OP 300 ng/mL PCP 25 ng/mL THC 20 ng/mL Carbon dioxide, total [Moles /volume] in Serum or PlasmaOrdered By: Preet Burrows on 05-03-2023 CO2 [Moles/Vol] 28.5 mmol/L 21.0-31.0 [facility] Chloride [Moles/volume] in S tino or PlasmaOrdered By: Preet Burrows on 05-03-2023 Chloride [Moles/Vol] 93 mmol/L 98-107 [facility] Color Auto (U)Ordered By: Luis Manuel Burrows on 05-03-2023 Color (U) Yellow Yellow [facility] Complete Blood Count Auto Di ffon 05-03-2023 Basophils (Bld) [#/Vol] 0.0 10*3/uL Normal 0.0-0.2 [facility] Comment on above: Result Comment: PERF ORMED BY: [facility] [address] [place] [id number] PATHOLOGIST CRATE BUILDER ANIL GUAMAN M.D. Performed By: #### C MP, TSH3, LIPID #### [facility] [address] [place] [address] [place] Basophils/100 WBC (Bld) 0.3 % Normal . [facility] Comment on above: Performed By: #### C MP, TSH3, LIPID #### [address] Eosinophils (Bld) [#/Vol] 0.0 10*3/uL Normal 0.0-0.45 [facility] Comment on above: Performed By: #### C MP, TSH3, LIPID #### [address] Eosinophils/100 WBC (Bld) 0.2 % Normal . [facility] Comment on above: Performed By: #### C MP, TSH3, LIPID #### [address] Erythrocyte distribution width (RBC) [Ratio] 12.4 % Normal 12.0-14.8 [facility] Comment on above: Performed By: #### C MP, TSH3, LIPID #### [address] Hematocrit (Bld) [Volume fraction] 40.9 % Normal 38.8-50.0 [facility] Comment on above: Performed By: #### C MP, TSH3, LIPID #### [place] [address] [place] Hemoglobin (Bld) [Mass/Vol] 14.3 g/dL Normal 13.0-17.0 [facility] Comment on above: Performed By: #### C MP, TSH3, LIPID #### [place] [address] [place] Lymphocytes (Bld) [#/Vol] 1.0 10*3/uL Normal 1.00-4.8 [facility] Comment on above: Performed By: #### C MP, TSH3, LIPID #### [place] [address] [place] Lymphocytes/100 WBC (Bld) 13.0 % Normal . [facility] Comment on above: Performed By: #### C MP, TSH3, LIPID #### [address] MCH (RBC) [Entitic mass] 32.6 pg Normal 27.5-35.2 [facility] Comment on above: Performed By: #### C MP, TSH3, LIPID #### [address] MCV (RBC) [Entitic vol] 93.0 fL Normal 83.5-101 [facility] Comment on above: Performed By: #### C MP, TSH3, LIPID #### [address] Mean Corpuscular HGB Conc 35.1 g/dL Normal 32.5-35.6 [facility] Comment on above: Performed By: #### C MP, TSH3, LIPID #### [address] Monocytes (Bld) [#/Vol] 0.5 10*3/uL Normal 0.0-0.8 [facility] Comment on above: Performed By: #### C MP, TSH3, LIPID #### [address] Monocytes/100 WBC (Bld) 15.82 % Normal 0.00-20.00 [facility] Comment on above: Performed By: #### C MP, TSH3, LIPID #### [address] Monocytes/100 WBC (Bld) 6.1 % Normal . [facility] Comment on above: Performed By: #### C MP, TSH3, LIPID #### [address] Neutrophils (Bld) [#/Vol] 6.2 10*3/uL Normal 1.8-7.7 [facility] Comment on above: Performed By: #### C MP, TSH3, LIPID #### [address] [place] [address] [place] Neutrophils/100 WBC (Bld) 80.4 % Normal . [facility] Comment on above: Performed By: #### C MP, TSH3, LIPID #### [facility] [address] NRBC% 0.1 /100{WBC} Normal 0-0.5 [facility] Comment on above: Performed By: #### C MP, TSH3, LIPID #### [facility] [address] Platelet mean volume (Bld) [Entitic vol] 8.9 fL Normal 6.6-10.1 [facility] Comment on above: Performed By: #### C MP, TSH3, LIPID #### [address] Platelets (Bld) [#/Vol] 169 10*3/uL Normal 150-450 [facility] Comment on above: Performed By: #### C MP, TSH3, LIPID #### [address] RBC (Bld) [#/Vol] 4.40 10*6/uL Normal 3.90-5.60 [facility] Comment on above: Performed By: #### C MP, TSH3, LIPID #### [address] WBC (Bld) [#/Vol] 7.7 10*3/uL Normal 4.1-10.5 [facility] Comment on above: Performed By: #### C MP, TSH3, LIPID #### [place] [address] [place] Creatine Kinaseon 05-03-2023 CK [Catalytic activity/Vol] 73 U/L Normal 30-223 [facility] Comment on above: Performed By: #### C MP, TSH3, LIPID #### [place] [address] [place] Creatine kinase [Enzymatic a ctivity/volume] in Serum or PlasmaOrdered By: Preet Burrows on 05-03-2023 CK [Catalytic activity/Vol] 73 U/L 30-223 [facility] Creatinine [Mass/volume] in Serum or PlasmaOrdered By: Preetsebastian Burrows on 05-03-2023 Creatinine [Mass/Vol] 2.23 mg/dL 0.70-1.30 [facility] Creatinine [Mass/volume] in UrineOrdered By: Eldon Ambriz on 05-03-2023 Creatinine (U) [Mass/Vol] 80.0 mg/dL 14.0-26.0 [facility] Creatinine, Urine (Random)on 05-03-2023 Creatinine, Urine (Random) 80.0 mg/dL High 14.0-26.0 [facility] Comment on above: Performed By: #### U RDS, ADDONUAPLUS #### [facility] [address] [place] [address] [place] Drug Screen,Urineon 05-03-20 23 Amphetamine Screen,Urine Negative Normal Negative [facility] Comment on above: Performed By: #### C BC, LIPASE, HEPATIC, BMP #### [facility] [address] Barbiturate Screen,Urine Negative Normal Negative [facility] Comment on above: Performed By: #### C BC, LIPASE, HEPATIC, BMP #### [facility] [address] [place] [address] Benzodiazepines Screen,Urine Negative Normal Negative [facility] Comment on above: Performed By: #### C BC, LIPASE, HEPATIC, BMP #### [facility] [address] [place] [address] [place] Cannabinoid Screen,Urine Negative Normal Negative [facility] Comment on above: Result Comment: Thes e are unconfirmed results and should not be used for legal purposes. Drug Cut-Off Concentration: AMPH 1000 ng/mL CHRISTINA 200 ng/mL CHRISTIANO 200 ng/mL COCM 300 ng/mL OP 300 ng/mL PCP 25 ng/mL THC 20 ng/mL PERFORMED BY: [place] [address] PATHOLOGIST [employer] ANIL GUAMAN M.D. Performed By: #### C BC, LIPASE, HEPATIC, BMP #### [facility] [address] Cocaine Screen,Urine Positive High Negative [facility] Comment on above: Performed By: #### C BC, LIPASE, HEPATIC, BMP #### [facility] [address] Opiate Screen,Urine Negative Normal Negative [facility] Comment on above: Performed By: #### C BC, LIPASE, HEPATIC, BMP #### [facility] [address] Phencyclidine Screen,Urine Negative Normal Negative [facility] Comment on above: Performed By: #### C BC, LIPASE, HEPATIC, BMP #### [facility] [address] ECG 12 lead ECGon 05-03-2023 ECG 12 lead ECG [facility] [place] [address] [place] [address] Electrocardiograph Report Signed 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 MR#: [id number] : 1970 Acct:[id number] Age/Sex: 52 / M ADM Date: 05/03/23 Loc: ER Room: Type: [facility] ER Attending Dr: Ordering Provider: Preet Burrows [...] normal variant Confirmed by Dave HENDRICKS DO ([id number]) on 05/03/2023 7:30:30 PM Referred By: Electronically Signed By:Dave HENDRICKS DO Transcribed By: MUS Signed By Dave Hendricks DO 0 05/03/23 193 Normal [facility] Eosinophils Auto (Bld) [#/Vo l]Ordered By: Preet Burrows on 05-03-2023 Eosinophils (Bld) [#/Vol] 0.0 10*3/uL 0.0-0.45 [facility] Eosinophils/100 WBC Auto (Bl d)Ordered By: Preet Burrows on 05-03-2023 Eosinophils/100 WBC (Bld) 0.2 % . [facility] Erythrocyte distribution wid th Auto (RBC) [Ratio]Ordered By: Preet Burrows on 05-03-2023 Erythrocyte distribution width (RBC) [Ratio] 12.4 % 12.0-14.8 [facility] Glucose Glucometer (BldC) [M ass/Vol]Ordered By: Eldon Ambriz on 05-03-2023 Glucose [Mass/Vol] 268 mg/dL [facility] Comment on above: Random Glucose Refer ence Range is dependent on time and content of last meal. Glucose of more than 200 mg/dL in a nonstressed, ambulatory subject supports the diagnosis of Diabetes Mellitus. Glucose Poct Glucometerson 0 05-03-2023 Glucose [Mass/Vol] 268 mg/dL Normal [facility] Comment on above: Result Comment: [place] om Glucose Reference Range is dependent on time and content of last meal. Glucose of more than 200 mg/dL in a nonstressed, ambulatory subject supports the diagnosis of Diabetes Mellitus. PERFORMED BY: [place] [address] PATHOLOGIST [employer] ANIL GUAMAN M.D. Performed By: #### C MP, TSH3, LIPID #### [place] [address] [place] Glucose [Mass/volume] in Ser um or PlasmaOrdered By: Preet Burrows on 05-03-2023 Glucose [Mass/Vol] 350 mg/dL 70-100 [facility] Comment on above: ADA recommended refe [...] from glycated hemoglobin (Bld) [Mass/Vol] 266 mg/dL [facility] Hematocrit Auto (Bld) [Volum e fraction]Ordered By: Preet Burrows on 05-03-2023 Hematocrit (Bld) [Volume fraction] 40.9 % 38.8-50.0 [facility] Hemoglobin A1c percentageOrd ered By: Eldon Ambriz on 05-03-2023 HbA1c (Bld) [Mass fraction] 10.9 % 4.3-5.6 [facility] Comment on above: Increased risk for d iabetes: 5.7 - 6.4diabetes: >6.4glycemic control for adults with diabetes: <7.0 Hemoglobin [Mass/volume] in BloodOrdered By: Preet Burrows on 05-03-2023 Hemoglobin (Bld) [Mass/Vol] 14.3 g/dL 13.0-17.0 [facility] Ketones Auto test strip (U) [Mass/Vol]Ordered By: Preet Burrows on 05-03-2023 Ketones (U) [Mass/Vol] Trace Negative Fi [facility] Laboratory - Chemistry and C hemistry - challengeOrdered By: Preet Burrows on 05-03-2023 CO2 [Moles/Vol] 32.1 mmol/L 24.0-29.0 [facility] HCO3 (Bld) [Moles/Vol] 30.6 mmol/L 23.0-29.0 [facility] Laboratory - CoagulationOrde red By: Preet Burrows on 05-03-2023 PT Coag (PPP) [Time] 11.6 s 9.0-12.9 [facility] Leukocytes [#/volume] correc billy for nucleated erythrocytes in Blood by Automated counOrdered By: Preet Burrows on 05-03-2023 WBC corrected for nucl RBC Auto (Bld) [#/Vol] 7.7 10*3/uL 4.1-10.5 [facility] Lipaseon 05-03-2023 Lipase [Catalytic activity/Vol] 63.0 U/L Normal 11.0-82.0 [facility] Comment on above: Performed By: #### U RDS, ADDONUAPLUS #### [address] Lipase [Enzymatic activity/v olume] in Serum or PlasmaOrdered By: Preet Burrows on 05-03-2023 Lipase [Catalytic activity/Vol] 63.0 U/L 11.0-82.0 [facility] Lymphocytes Auto (Bld) [#/Vo l]Ordered By: Preet Burrows on 05-03-2023 Lymphocytes (Bld) [#/Vol] 1.0 10*3/uL 1.00-4.8 [facility] Lymphocytes/100 WBC Auto (Bl d)Ordered By: Preet Burrows on 05-03-2023 Lymphocytes/100 WBC (Bld) 13.0 % . [facility] MCH Auto (RBC) [Entitic mass ]Ordered By: Preet Burrows on 05-03-2023 MCH (RBC) [Entitic mass] 32.6 pg 27.5-35.2 [facility] MCHC Auto (RBC) [Mass/Vol]Or dered By: Preet Burrows on 05-03-2023 MCHC (RBC) [Mass/Vol] 35.1 g/dL 32.5-35.6 [facility] MCV Auto (RBC) [Entitic vol] Ordered By: Preet Burrows on 05-03-2023 MCV (RBC) [Entitic vol] 93.0 fL 83.5-101 [facility] Monocyte distribution width [Entitic volume] in Blood by AutomatedOrdered By: Preet Burrows on 05-03-2023 Monocyte distribution width Auto (Bld) [Entitic vol] 15.82 % 0.00-20.00 [facility] Monocytes Auto (Bld) [#/Vol] Ordered By: Preet Burrows on 05-03-2023 Monocytes (Bld) [#/Vol] 0.5 10*3/uL 0.0-0.8 [facility] Monocytes/100 WBC Auto (Bld) Ordered By: Preet Burrows on 05-03-2023 Monocytes/100 WBC (Bld) 6.1 % . [facility] Natriuretic peptide B [Mass/ Vol]Ordered By: Preet Burrows on 05-03-2023 Natriuretic peptide B (Bld) [Mass/Vol] 20.0 pg/mL 5-100 [facility] Neutrophils Auto (Bld) [#/Vo l]Ordered By: Preet Burrows on 05-03-2023 Neutrophils (Bld) [#/Vol] 6.2 10*3/uL 1.8-7.7 [facility] Neutrophils/100 WBC Auto (Bl d)Ordered By: Preet Burrows on 05-03-2023 Neutrophils/100 WBC (Bld) 80.4 % . [facility] Nitrite Test strip Ql (U)Ord ered By: Preet Burrows on 05-03-2023 Nitrite Ql (U) Negative Negative [facility] No Panel InformationOrdered By: Preet Burrows on 05-03-2023 Blood Gas Critical Value See comment [facility] Comment on above: Critical Value topete d on: 05/03/2023 at 15:28 Blood Gas Sample Site Venous [facility] FiO2 21 % [facility] Venous Blood Base Excess 4.4 mmol/L -3.0-3.0 [facility] Venous Blood Oxygen Content 2.8 mmol/L 6.6-9.7 [facility] Venous Blood Oxygen Saturation 31.2 % 73.0-76.0 [facility] Venous Blood Partial Pressure CO2 51.3 mm[Hg] 38.0-50.0 [facility] Venous Blood Partial Pressure O2 18.5 mm[Hg] 35.0-45.0 [facility] Venous Blood pH 7.39 7.32-7.43 [facility] Estimated GFR (CKD-EPI) 34.376 mL/Min [facility] Creatinine Clearance (Chem 35.50 [facility] Nucleated erythrocytes [Pres ence] in Blood by Automated countOrdered By: Preet Burrows on 05-03-2023 Nucleated RBC Auto Ql (Bld) 0.1 /100{WBC} 0-0.5 [facility] Opiates [Presence] in Urine by Screen methodOrdered By: Eldon Ambriz on 05-03-2023 Opiates Screen Ql (U) Negative Negative [facility] Partial Thromboplastin Timeo n 05-03-2023 aPTT Coag (Bld) [Time] 22.8 s Low 25.1-36.5 [facility] Comment on above: Result Comment: PERF ORMED BY: [place] [address] PATHOLOGIST [employer] ANIL GUAMAN M.D. Performed By: #### C MP, TSH3, LIPID #### [address] Phencyclidine Screen Ql (U)O rdered By: Eldon Ambriz on 05-03-2023 Phencyclidine Ql (U) Negative Negative [facility] Platelet mean volume Auto (B ld) [Entitic vol]Ordered By: Preet Burrows on 05-03-2023 Platelet mean volume (Bld) [Entitic vol] 8.9 fL 6.6-10.1 [facility] Platelet poor plasma interna tional normalized ratio (INR) by coagulation assay (relatOrdered By: Preet Burrows on 05-03-2023 INR Coag (PPP) [Relative time] 1.0 {INR} [facility] Comment on above: INR Therapeutic Rang [...] 05-03-2023 Platelets (Bld) [#/Vol] 169 10*3/uL 150-450 [facility] Potassium [Moles/volume] in Serum or PlasmaOrdered By: Preet Burrows on 05-03-2023 Potassium [Moles/Vol] 4.1 mmol/L 3.5-5.1 [facility] Protein Auto test strip (U) [Mass/Vol]Ordered By: Preet Burrows on 05-03-2023 Protein (U) [Mass/Vol] Negative Negative [facility] Prothrombin Time INRon 05-03 INR Coag (PPP) [Relative time] 1.0 {INR} Normal [facility] Comment on above: Result Comment: INR [...] By: #### C MP, TSH3, LIPID #### [facility] [address] PT Coag (PPP) [Time] 11.6 s Normal 9.0-12.9 [facility] Comment on above: Performed By: #### C MP, TSH3, LIPID #### [facility] [address] RBC Auto (Bld) [#/Vol]Ordere d By: Preet Burrows on 05-03-2023 RBC (Bld) [#/Vol] 4.40 10*6/uL 3.90-5.60 [facility] Respiratory (Upper) Panel, P CRon 05-03-2023 Respiratory [...] A H3 Blank Space -- PERFORMED BY: [address] [place] [address] PATHOLOGIST [employer] ANIL GUAMAN M.D. Normal [facility] Comment on above: Performed By: #### R AUDRA PANEL UPP., BIOFIRECOVNOTDE #### [facility] [address] [place] [address] Respiratory pathogens DNA an d RNA panel - Nasopharynx by SILVIA with non-probe detectionOrdered By: Eldon Ambriz on 05-03-2023 Respiratory pathogens DNA and RNA panel SILVIA+non-probe (Nph) [facility] Serum or plasma anion gap de terminationOrdered By: Preet Burrows on 05-03-2023 Anion gap [Moles/Vol] 14.6 mmol/L 6.0-15.0 [facility] Sodium [Moles/volume] in Ser um or PlasmaOrdered By: Preet Burrows on 05-03-2023 Sodium [Moles/Vol] 132 mmol/L 136-145 [facility] Sodium [Moles/volume] in Uri neOrdered By: Eldon Ambriz on 05-03-2023 Sodium (U) [Moles/Vol] 105 mmol/L [facility] Comment on above: No reference range e stablished Sodium, Urine (Random)on Sodium (U) [Moles/Vol] 105 mmol/L Normal [facility] Comment on above: Result Comment: No r eference range established PERFORMED BY: [address] [place] [address] PATHOLOGIST [employer] ANIL GUAMAN M.D. Performed By: #### U RDS, ADDONUAPLUS #### [facility] [address] [place], [place] [id number] [facility] Specific gravity Auto test s trip (U) [Rel density]Ordered By: Preet Burrows on 05-03-2023 Specific gravity (U) [Rel density] 1.013 1.001-1.030 [facility] Troponin I High Sensitivityo n 05-03-2023 Troponin I High Sensitivity 14.2 pg/mL Normal 0.0-20.0 [facility] Comment on above: Result Comment: PERF ORMED BY: [place] [address] PATHOLOGIST [employer] ANIL GUAMAN M.D. Performed By: #### C MP, TSH3, LIPID #### [facility] [address] Troponin I.cardiac [Mass/vol ume] in Serum or Plasma by Detection limit <= 0.01 ng/Ordered By: Preet Burrows on 05-03-2023 Troponin I.cardiac DL <= 0.01 ng/mL [Mass/Vol] 14.2 pg/mL 0.0-20.0 [facility] Urea nitrogen [Mass/volume] in Serum or PlasmaOrdered By: Preet Burrows on 05-03-2023 Urea nitrogen [Mass/Vol] 35 mg/dL 06-21 [facility] Urinalysison 05-03-2023 Appearance (U) Clear Normal Clear [facility] Comment on above: Order Comment: Reaso n for Exam Weight loss;Nausea vomiting;Type 2 diabetes mellitus with PT IS FASTING Performed By: #### C MP, TSH3, LIPID #### [facility] [address] [place] [address] [place] Bilirubin,Urine Negative Normal Negative [facility] Comment on above: Order Comment: Reaso n for Exam Weight loss;Nausea vomiting;Type 2 diabetes mellitus with PT IS FASTING Performed By: #### C MP, TSH3, LIPID #### [facility] [address] [place] [address] [place] Color (U) Yellow Normal Yellow [facility] Comment on above: Order Comment: Reaso n for Exam Weight loss;Nausea vomiting;Type 2 diabetes mellitus with PT IS FASTING Performed By: #### C MP, TSH3, LIPID #### [facility] [address] [place] [address] [place] Glucose Ql (U) >=1000 High Normal [facility] Comment on above: Order Comment: Reaso n for Exam Weight loss;Nausea vomiting;Type 2 diabetes mellitus with PT IS FASTING Performed By: #### C MP, TSH3, LIPID #### [facility] [address] Ketones Ql (U) Trace High Negative [facility] Comment on above: Order Comment: Reaso n for Exam Weight loss;Nausea vomiting;Type 2 diabetes mellitus with PT IS FASTING Performed By: #### C MP, TSH3, LIPID #### [facility] [address] Leukocyte esterase Test strip Ql (U) Negative Normal Negative [facility] Comment on above: Order Comment: Reaso n for Exam Weight loss;Nausea vomiting;Type 2 diabetes mellitus with PT IS FASTING Performed By: #### C MP, TSH3, LIPID #### [facility] [address] Nitrite,Urine Negative Normal Negative [facility] Comment on above: Order Comment: Reaso n for Exam Weight loss;Nausea vomiting;Type 2 diabetes mellitus with PT IS FASTING Performed By: #### C MP, TSH3, LIPID #### [facility] [address] Occult Blood,Urine Negative Normal Negative [facility] Comment on above: Order Comment: Reaso n for Exam Weight loss;Nausea vomiting;Type 2 diabetes mellitus with PT IS FASTING Result Comment: PERF ORMED BY: [place] [address] PATHOLOGIST [employer] BU[employer] ANIL GUAMAN M.D. Performed By: #### C MP, TSH3, LIPID #### [facility] [address] [place] [address] [place] pH (U) 5.5 [pH] Normal 5.0-9.0 [facility] Comment on above: Order Comment: Reaso n for Exam Weight loss;Nausea vomiting;Type 2 diabetes mellitus with PT IS FASTING Performed By: #### C MP, TSH3, LIPID #### [facility] [address] [place] [address] [place] Protein,Urine Negative Normal Negative [facility] Comment on above: Order Comment: Reaso n for Exam Weight loss;Nausea vomiting;Type 2 diabetes mellitus with PT IS FASTING Performed By: #### C MP, TSH3, LIPID #### [facility] [address] Specificy [place],Urine 1.013 Normal 1.001-1.030 [facility] Comment on above: Order Comment: Reaso n for Exam Weight loss;Nausea vomiting;Type 2 diabetes mellitus with PT IS FASTING Performed By: #### C MP, TSH3, LIPID #### [facility] [address] [place] [address] [place] Urobilinogen,Urine Normal Normal Normal [facility] Comment on above: Order Comment: Reaso n for Exam Weight loss;Nausea vomiting;Type 2 diabetes mellitus with PT IS FASTING Performed By: #### C MP, TSH3, LIPID #### [facility] [address] Urine clarity by refractomet ry automatedOrdered By: Preet Burrows on 05-03-2023 Clarity Refractometry automated (U) Clear Clear [facility] Urine glucose measurement by automated test strip (mass/volume)Ordered By: Preet Burrows on 05-03-2023 Glucose Auto test strip (U) [Mass/Vol] >=1000 mg/dL Normal [facility] Urine hemoglobin detection b y automated test stripOrdered By: Preet Burrows on 05-03-2023 Hemoglobin Auto test strip Ql (U) Negative Negative [facility] Urine leukocyte esterase det ection by automated test stripOrdered By: Preet Burrows on 05-03-2023 Leukocyte esterase Auto test strip Ql (U) Negative Negative [facility] Urobilinogen Auto test strip (U) [Mass/Vol]Ordered By: Preet Burrows on 05-03-2023 Urobilinogen (U) [Mass/Vol] Normal mg/dL Normal [facility] Venous Blood Gason 3 CO2 [Moles/Vol] 32.1 mmol/L High 24.0-29.0 [facility] Comment on above: Performed By: #### V BG #### Point of Care testing , HCO3 (Bld) [Moles/Vol] 30.6 mmol/L High 23.0-29.0 [facility] Comment on above: Performed By: #### V BG #### Point of Care testing , Respiratory Critical Normal [facility] Comment on above: Result Comment: Crit ical Value called on: 05/03/2023 at 15:28 PERFORMED BY: [facility] [place] [address] PATHOLOGIST [employer] BU[employer] ANIL GUAMAN M.D. Performed By: #### V BG #### Point of Care testing , VBG Base Excess 4.4 mmol/L High -3.0-3.0 [facility] Comment on above: Performed By: #### V BG #### Point of Care testing , VBG Draw Site Venous [facility] Comment on above: Performed By: #### V BG #### Point of Care testing , VBG Frac Inspired O2 21 % Normal [facility] Comment on above: Performed By: #### V BG #### Point of Care testing , VBG O2 Content 2.8 mmol/L Low 6.6-9.7 [facility] Comment on above: Performed By: #### V BG #### Point of Care testing , VBG Oxygen Saturation 31.2 % Off scale low 73.0-76.0 [facility] Comment on above: Performed By: #### V BG #### Point of Care testing , VBG PCO2 51.3 mm[Hg] High 38.0-50.0 [facility] Comment on above: Performed By: #### V BG #### Point of Care testing , VBG PH Venous PH 7.39 Normal 7.32-7.43 [facility] Comment on above: Performed By: #### V BG #### Point of Care testing , VBG PO2 18.5 mm[Hg] Off scale low 35.0-45.0 [facility] Comment on above: Performed By: #### V BG #### Point of Care testing , WBC Auto (Bld) [#/Vol]Ordere d By: Preet Burrows on 05-03-2023 WBC (Bld) [#/Vol] 7.7 10*3/uL 4.1-10.5 [facility] XR chest 2V*on 05-03-2023 XR chest 2V* [facility] [place] [address] [place] [id number] XRay Report Signed 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 MR#: [id number] : 1970 Acct:[id number] Age/Sex: 52 / M ADM Date: 05/03/23 [...] Flor Almonte M.D.05/03/2023 2:03 PM Dictation Location: [place] [address] Transcribed By: [facility] 05/03/231402 Dictated By: Flor Almonte MD 05/03/231400 Signed By: 05/03/23 140 Normal [facility] pH Auto test strip (U)Ordere d By: Preet Burrows on 05-03-2023 pH (U) 5.5 [pH] 5.0-9.0 [facility] Basophils Auto (Bld) [#/Vol] Ordered By: Bucky Cheng on 01-07-2023 Basophils (Bld) [#/Vol] 0.1 10*3/uL 0.0-0.2 [facility] Basophils/100 WBC Auto (Bld) Ordered By: Bucky Cheng on 01-07-2023 Basophils/100 WBC (Bld) 0.8 % . [facility] Body fluid albumin measureme nt (mass/volume)Ordered By: Bucky Cheng on 01-07-2023 Albumin (Body fld) [Mass/Vol] 3.8 g/dL 3.2-5.5 [facility] Complete Blood Count Auto Di ffon 01-07-2023 Basophils (Bld) [#/Vol] 0.1 10*3/uL Normal 0.0-0.2 [facility] Comment on above: Result Comment: PERF ORMED BY: [place] [address] PATHOLOGIST [employer] BU[employer] ANIL GUAMAN M.D. Performed By: #### U RDS, ADDONUAPLUS #### [facility] [address] [place] [address] Basophils/100 WBC (Bld) 0.8 % Normal . [facility] Comment on above: Performed By: #### U RDS, ADDONUAPLUS #### [facility] [address] [place] [address] Eosinophils (Bld) [#/Vol] 0.0 10*3/uL Normal 0.0-0.45 [facility] Comment on above: Performed By: #### U RDS, ADDONUAPLUS #### [address] Eosinophils/100 WBC (Bld) 0.5 % Normal . [facility] Comment on above: Performed By: #### U RDS, ADDONUAPLUS #### [facility] [address] [place] [address] Erythrocyte distribution width (RBC) [Ratio] 12.8 % Normal 12.0-14.8 [facility] Comment on above: Performed By: #### U RDS, ADDONUAPLUS #### [facility] [address] [place] [address] Hematocrit (Bld) [Volume fraction] 43.8 % Normal 38.8-50.0 [facility] Comment on above: Performed By: #### U RDS, ADDONUAPLUS #### [facility] [address] Hemoglobin (Bld) [Mass/Vol] 15.1 g/dL Normal 13.0-17.0 [facility] Comment on above: Performed By: #### U RDS, ADDONUAPLUS #### [facility] [address] Lymphocytes (Bld) [#/Vol] 2.0 10*3/uL Normal 1.00-4.8 [facility] Comment on above: Performed By: #### U RDS, ADDONUAPLUS #### [facility] [address] [address] Lymphocytes/100 WBC (Bld) 24.6 % Normal . [facility] Comment on above: Performed By: #### U RDS, ADDONUAPLUS #### [address] MCH (RBC) [Entitic mass] 32.1 pg Normal 27.5-35.2 [facility] Comment on above: Performed By: #### U RDS, ADDONUAPLUS #### [place] [address] [place] MCV (RBC) [Entitic vol] 93.3 fL Normal 83.5-101 [facility] Comment on above: Performed By: #### U RDS, ADDONUAPLUS #### [facility] [address] [place] [address] Mean Corpuscular HGB Conc 34.4 g/dL Normal 32.5-35.6 [facility] Comment on above: Performed By: #### U RDS, ADDONUAPLUS #### [facility] [address] [place] [address] [place] Monocytes (Bld) [#/Vol] 0.6 10*3/uL Normal 0.0-0.8 [facility] Comment on above: Performed By: #### U RDS, ADDONUAPLUS #### [facility] [address] [place] [address] [place] Monocytes/100 WBC (Bld) 21.16 % High 0.00-20.00 [facility] Comment on above: Result Comment: For adults in ED, MDW > 20.0 may be associated with a higher risk of sepsis during the first 12 hrs of hospital admission Performed By: #### U NICOLAS ADDONUAPLUS #### [facility] [address] [place] [address] [place] Monocytes/100 WBC (Bld) 8.1 % Normal . [facility] Comment on above: Performed By: #### U NICOLAS ADDONUAPLUS #### [facility] [address] [place] [address] [place] Neutrophils (Bld) [#/Vol] 5.3 10*3/uL Normal 1.8-7.7 [facility] Comment on above: Performed By: #### U NICOLAS ADDONUAPLUS #### [place] [address] [place] Neutrophils/100 WBC (Bld) 66.0 % Normal . [facility] Comment on above: Performed By: #### U NICOLAS ADDONUAPLUS #### [facility] [address] [place] [address] [place] NRBC% 0.0 /100{WBC} Normal 0-0.5 [facility] Comment on above: Performed By: #### U NICOLAS ADDONUAPLUS #### [facility] [address] [place] [address] [place] Platelet mean volume (Bld) [Entitic vol] 9.0 fL Normal 6.6-10.1 [facility] Comment on above: Performed By: #### U NICOLAS ADDONUAPLUS #### [facility] [address] [place] [address] [place] Platelets (Bld) [#/Vol] 197 10*3/uL Normal 150-450 [facility] Comment on above: Performed By: #### U NICOLAS ADDONUAPLUS #### [facility] [address] [place] [address] [place] RBC (Bld) [#/Vol] 4.69 10*6/uL Normal 3.90-5.60 [facility] Comment on above: Performed By: #### U NICOLAS ADDONUAPLUS #### [facility] [address] [place] [address] WBC (Bld) [#/Vol] 8.0 10*3/uL Normal 4.1-10.5 [facility] Comment on above: Performed By: #### U RDS, ADDONUAPLUS #### [facility] [address] [place] [address] Comprehensive Metabolic Pane rudolph 01-07-2023 Albumin [Mass/Vol] 3.8 g/dL Normal 3.2-5.5 [facility] Comment on above: Performed By: #### U RDS, ADDONUAPLUS #### [facility] [address] [place] [address] Albumin/Globulin [Mass ratio] 1.0 {ratio} Normal [facility] Comment on above: Performed By: #### U RDS, ADDONUAPLUS #### [facility] [address] [place] [address] ALP [Catalytic activity/Vol] 75 U/L Normal 32-92 [facility] Comment on above: Performed By: #### U RDS, ADDONUAPLUS #### [facility] [address] [place] [address] ALT [Catalytic activity/Vol] 20 U/L Normal 10-60 [facility] Comment on above: Performed By: #### U RDS, ADDONUAPLUS #### [facility] [address] [place] [address] Anion gap [Moles/Vol] 15.6 mmol/L High 6.0-15.0 [facility] Comment on above: Performed By: #### U RDS, ADDONUAPLUS #### [facility] [address] [place] [address] AST [Catalytic activity/Vol] 15 U/L Normal 10-42 [facility] Comment on above: Performed By: #### U RDS, ADDONUAPLUS #### [facility] [address] [place] [address] Bilirubin [Mass/Vol] 1.2 mg/dL Normal 0.3-1.2 [facility] Comment on above: Performed By: #### U RDS, ADDONUAPLUS #### [facility] [address] Calcium [Mass/Vol] 9.4 mg/dL Normal 8.2-10.2 [facility] Comment on above: Performed By: #### U RDS, ADDONUAPLUS #### [facility] [address] Chloride [Moles/Vol] 98 mmol/L Normal 95-114 [facility] Comment on above: Performed By: #### U RDS, ADDONUAPLUS #### [facility] [address] CO2 [Moles/Vol] 27.8 mmol/L Normal 22.0-30.0 [facility] Comment on above: Performed By: #### U RDS, ADDONUAPLUS #### [facility] [address] Creatinine [Mass/Vol] 1.07 mg/dL Normal 0.64-1.27 [facility] Comment on above: Performed By: #### U RDS, ADDONUAPLUS #### [facility] [address] [place] [address] Creatinine Clr Calc Pharmacy 85.04 [facility] Comment on above: Performed By: #### U RDS, ADDONUAPLUS #### [facility] [address] [place] [address] Estimated GFR ( Akua > 60 [facility] Comment on above: Result Comment: GFR estimated reference range: According to KDOQI guidelines, <60 ml/min/1.73m2 is sufficient to diagnose a patient with chronic kidney disease. Performed By: #### U RDS, ADDONUAPLUS #### [facility] [address] [place] [address] Estimated GFR (Non- Am > 60 [facility] Comment on above: Performed By: #### U RDS, ADDONUAPLUS #### [facility] [address] [place] [address] [place] Globulin (S) [Mass/Vol] 3.7 g/dL Normal [facility] Comment on above: Performed By: #### U RDS, ADDONUAPLUS #### [facility] [address] Glucose [Mass/Vol] 351 mg/dL High 70-100 [facility] Comment on above: Result Comment: [place] Glucose Reference Range is dependent on time and content of last meal. Glucose of more than 200 mg/dL in a nonstressed, ambulatory subject supports the diagnosis of Diabetes Mellitus. ADA recommended reference range Performed By: #### U RDS, ADDONUAPLUS #### [facility] [address] Potassium [Moles/Vol] 4.4 mmol/L Normal 3.5-5.1 [facility] Comment on above: Performed By: #### U RDS, ADDONUAPLUS #### [facility] [address] [place] [address] [place] Protein [Mass/Vol] 7.5 g/dL Normal 6.1-7.9 [facility] Comment on above: Performed By: #### U RDS, ADDONUAPLUS #### [facility] [address] [place] [address] [place] Sodium [Moles/Vol] 137 mmol/L Normal 136-146 [facility] Comment on above: Performed By: #### U RDS, ADDONUAPLUS #### [facility] [address] [place] [id number] [place] Urea nitrogen [Mass/Vol] 35 mg/dL High 9-23 [facility] Comment on above: Performed By: #### U RDS, ADDONUAPLUS #### [facility] [address] [place] [id number] [place] Creatinine and Glomerular fi ltration rate.predicted panel (S/P/Bld)Ordered By: Bucky Cheng on 01-07-2023 Creatinine [Mass/Vol] 1.07 mg/dL 0.64-1.27 [facility] ECG 12 lead ECGon 01-07-2023 ECG 12 lead ECG [facility] [place] [address] [place] [address] Electrocardiograph Report Signed 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 MR#: [id number] : 1970 Acct:[id number] Age/Sex: 52 / M ADM Date: 01/07/23 Loc: ER Room: Type: [facility] ER Attending Dr: Ordering Provider: Loy [...] Loy Nicholson MD 12/29 12/20 0148 Normal [facility] Eosinophils Auto (Bld) [#/Vo l]Ordered By: Bucky Cheng on 01-07-2023 Eosinophils (Bld) [#/Vol] 0.0 10*3/uL 0.0-0.45 [facility] Eosinophils/100 WBC Auto (Bl d)Ordered By: Bucky Cheng on 01-07-2023 Eosinophils/100 WBC (Bld) 0.5 % . [facility] Erythrocyte distribution wid th Auto (RBC) [Ratio]Ordered By: Bucky Cheng on 01-07-2023 Erythrocyte distribution width (RBC) [Ratio] 12.8 % 12.0-14.8 [facility] Estimated glomerular filtrat ion rate (GFR) non- AmericanOrdered By: Bucky Cheng on 01-07-2023 GFR/1.73 sq M.predicted among non-blacks MDRD (S/P/Bld) [Vol rate/Area] > 60 mL/Min [facility] Globulin Calc (S) [Mass/Vol] Ordered By: Bucky Cheng on 01-07-2023 Globulin (S) [Mass/Vol] 3.7 g/dL [facility] Hematocrit Auto (Bld) [Volum e fraction]Ordered By: Bucky Cheng on 01-07-2023 Hematocrit (Bld) [Volume fraction] 43.8 % 38.8-50.0 [facility] Hemoglobin [Mass/volume] in BloodOrdered By: Bucky Cheng on 01-07-2023 Hemoglobin (Bld) [Mass/Vol] 15.1 g/dL 13.0-17.0 [facility] Laboratory - Chemistry and C hemistry - challengeOrdered By: Bucky Cheng on 01-07-2023 Lipase [Catalytic activity/Vol] 58.0 U/L [address] [place] [address] Leukocytes [#/volume] correc billy for nucleated erythrocytes in Blood by Automated counOrdered By: Bucky Cheng on 01-07-2023 WBC corrected for nucl RBC Auto (Bld) [#/Vol] 8.0 10*3/uL 4.1-10.5 [facility] Lipaseon 01-07-2023 Lipase [Catalytic activity/Vol] 58.0 U/L High [address] [place] [address] Comment on above: Result Comment: PERF ORMED BY: [place] [address] PATHOLOGIST [employer] ANIL GUAMAN M.D. Performed By: #### U RDS, ADDONUAPLUS #### [address] Lymphocytes Auto (Bld) [#/Vo l]Ordered By: Bucky Cheng on 01-07-2023 Lymphocytes (Bld) [#/Vol] 2.0 10*3/uL 1.00-4.8 [facility] Lymphocytes/100 WBC Auto (Bl d)Ordered By: Bucky Cheng on 01-07-2023 Lymphocytes/100 WBC (Bld) 24.6 % . [facility] MCH Auto (RBC) [Entitic mass ]Ordered By: Bucky Cheng on 01-07-2023 MCH (RBC) [Entitic mass] 32.1 pg 27.5-35.2 [facility] MCHC Auto (RBC) [Mass/Vol]Or dered By: Bucky Cheng on 01-07-2023 MCHC (RBC) [Mass/Vol] 34.4 g/dL 32.5-35.6 [facility] MCV Auto (RBC) [Entitic vol] Ordered By: Bucky Cheng on 01-07-2023 MCV (RBC) [Entitic vol] 93.3 fL 83.5-101 [facility] Monocyte distribution width [Entitic volume] in Blood by AutomatedOrdered By: Bucky Cheng on 01-07-2023 Monocyte distribution width Auto (Bld) [Entitic vol] 21.16 % 0.00-20.00 [facility] Comment on above: For adults in ED, MD W > 20.0 may be associated with a higher risk of sepsis during the first 12 hrs of hospital admission Monocytes Auto (Bld) [#/Vol] Ordered By: Bucky Cheng on 01-07-2023 Monocytes (Bld) [#/Vol] 0.6 10*3/uL 0.0-0.8 [facility] Monocytes/100 WBC Auto (Bld) Ordered By: Bucky Cheng on 01-07-2023 Monocytes/100 WBC (Bld) 8.1 % . [facility] Neutrophils Auto (Bld) [#/Vo l]Ordered By: Bucky Cheng on 01-07-2023 Neutrophils (Bld) [#/Vol] 5.3 10*3/uL 1.8-7.7 [facility] Neutrophils/100 WBC Auto (Bl d)Ordered By: Bucky Cheng on 01-07-2023 Neutrophils/100 WBC (Bld) 66.0 % . [facility] No Panel InformationOrdered By: Bucky Cheng on 01-07-2023 Estimated GFR () > 60 mL/Min [facility] Comment on above: GFR estimated refere nce range: According to KDOQI guidelines, <60 ml/min/1.73m2 is sufficient to diagnose a patient with chronic kidney disease. Pharmacy Creatinine Clearance (Chem 85.04 [facility] Nucleated erythrocytes [Pres ence] in Blood by Automated countOrdered By: Bucky Cheng on 01-07-2023 Nucleated RBC Auto Ql (Bld) 0.0 /100{WBC} 0-0.5 [facility] Platelet mean volume Auto (B ld) [Entitic vol]Ordered By: Bucky Cheng on 01-07-2023 Platelet mean volume (Bld) [Entitic vol] 9.0 fL 6.6-10.1 [facility] Platelets Auto (Bld) [#/Vol] Ordered By: Bucky Cheng on 01-07-2023 Platelets (Bld) [#/Vol] 197 10*3/uL 150-450 [facility] Protein [Mass/volume] in Ser um or PlasmaOrdered By: Bucky Cheng on 01-07-2023 Protein [Mass/Vol] 7.5 g/dL 6.1-7.9 [facility] RBC Auto (Bld) [#/Vol]Ordere d By: Bucky Cheng on 01-07-2023 RBC (Bld) [#/Vol] 4.69 10*6/uL 3.90-5.60 [facility] Serum or plasma alanine humphrey otransferase measurement without P-5'-P (enzymatic activiOrdered By: Bucky Cheng on 01-07-2023 ALT No additional P-5'-P [Catalytic activity/Vol] 20 U/L 10-60 [facility] Serum or plasma albumin/glob ulin mass ratioOrdered By: Bucky Cheng on 01-07-2023 Albumin/Globulin [Mass ratio] 1.0 {ratio} [facility] Serum or plasma alkaline suzi sphatase measurement (enzymatic activity/volume)Ordered By: Bucky Cheng on 01-07-2023 ALP [Catalytic activity/Vol] 75 U/L 32-92 [facility] Serum or plasma anion gap de terminationOrdered By: Bucky Cheng on 01-07-2023 Anion gap [Moles/Vol] 15.6 mmol/L 6.0-15.0 [facility] Serum or plasma aspartate am inotransferase measurement (enzymatic activity/volume)Ordered By: Bucky Cheng on 01-07-2023 AST [Catalytic activity/Vol] 15 U/L 10-42 [facility] Serum or plasma calcium travis urement (mass/volume)Ordered By: Bucky Cheng on 01-07-2023 Calcium [Mass/Vol] 9.4 mg/dL 8.2-10.2 [facility] Serum or plasma chloride hollie surement (moles/volume)Ordered By: Bucky Cheng on 01-07-2023 Chloride [Moles/Vol] 98 mmol/L 95-114 [facility] Serum or plasma glucose travis urement (mass/volume)Ordered By: Bucky Cheng on 01-07-2023 Glucose [Mass/Vol] 351 mg/dL 70-100 [facility] Comment on above: ADA recommended refe rence rangeRandom Glucose Reference Range is dependent on time and content of last meal. Glucose of more than 200 mg/dL in a nonstressed, ambulatory subject supports the diagnosis of Diabetes Mellitus. Serum or plasma potassium me asurement (moles/volume)Ordered By: Bucky Cheng on 01-07-2023 Potassium [Moles/Vol] 4.4 mmol/L 3.5-5.1 [facility] Serum or plasma sodium measu rement (moles/volume)Ordered By: Bucky Cheng on 01-07-2023 Sodium [Moles/Vol] 137 mmol/L 136-146 [facility] Serum or plasma total biliru bin measurement (mass/volume)Ordered By: Bucky Cheng on 01-07-2023 Bilirubin [Mass/Vol] 1.2 mg/dL 0.3-1.2 [facility] Serum or plasma total carbon dioxide measurement (moles/volume)Ordered By: Bucky Cheng on 01-07-2023 CO2 [Moles/Vol] 27.8 mmol/L 22.0-30.0 [facility] Serum or plasma urea nitroge n measurement (mass/volume)Ordered By: Bucky Cheng on 01-07-2023 Urea nitrogen [Mass/Vol] 35 mg/dL 9-23 [facility] Troponin I High Sensitivityo n 01-07-2023 Troponin I High Sensitivity 11 pg/mL Normal 0-20 [facility] Comment on above: Result Comment: PERF ORMED BY: [place] [address] PATHOLOGIST [employer] ANIL GUAMAN M.D. Performed By: #### U TEJ VAELNZUELA #### [address] Troponin I.cardiac [Mass/vol ume] in Serum or Plasma by High sensitivity methodOrdered By: Bucky Cheng on 01-07-2023 Troponin I.cardiac High sensitivity method [Mass/Vol] 11 pg/mL 0-20 [facility] WBC Auto (Bld) [#/Vol]Ordere d By: Bucky Cheng on 01-07-2023 WBC (Bld) [#/Vol] 8.0 10*3/uL 4.1-10.5 [facility] XR chest 1V portableon 01-07 XR chest 1V portable [facility] [place] [address] [place] [address] XRay Report Signed 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 MR#: [id number] : 1970 Acct:[id number] Age/Sex: 52 / M ADM Date: 01/07/23 Loc: ER Room: Type: [facility] ER Attending Dr: Copies to: DO Loy [...] Flor Almonte M.D.01/07/2023 8:37 PM Dictation Location: [place] [address] Transcribed By: [facility] 01/07/232036 Dictated By: Flor Almonte MD 01/07/232034 Signed By: 01/07/232036 [facility] CT head/brain wo conon 11-10 CT head/brain wo con [facility] [place] [address] [place] [address] CT Scan Report Signed 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 MR#: [id number] : 1970 Acct:[id number] Age/Sex: 52 / M ADM Date: 11/10/22 Loc: CT Room: Type: [facility] Attending Dr: Crow Dean DO Copies to: [...] Tae Seals M.D.11/10/2022 11:43 AM Dictation Location: [place] [address] Transcribed By: [facility] 11/10/22 1143 Dictated By: Tae Seals II, MD 11/10/22 1136 Signed By: 11/10/22 1143 [facility] US gall bladderon 11-10-2022 US gall bladder [facility] [place] [address] [place] [id number] Ultrasound Report Signed 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 MR#: [id number] : 1970 Acct:[id number] Age/Sex: 52 / M ADM Date: 11/10/22 Loc: CT Room: Type: [facility] Attending Dr: Crow Dean DO Ordering Provider: [...] Tae Seals M.D.11/10/2022 10:23 AM Dictation Location: [place] [address] Tech: Karen Christopher Transcribed By: WILEY 11/10/22 1023 Dictated By: Tae Seals II, MD 11/10/22 1021 Signed By: 11/10/22 1023 Normal [facility] A1C with Estimated Average G marilu 11-04-2022 Glucose [Mass/Vol] 220 mg/dL Normal [facility] Comment on above: Order Comment: Reaso n for Exam Weight loss;Nausea vomiting;Type 2 diabetes mellitus with Result Comment: PERF ORMED BY: [address] [address] PATHOLOGIST [employer] ANIL GUAMAN M.D. Performed By: #### U RDS, ADDONUAPLUS #### [facility] [address] HbA1c (Bld) [Mass fraction] 9.3 % High 4.3-5.6 [facility] Comment on above: Order Comment: Reaso n for Exam Weight loss;Nausea vomiting;Type 2 diabetes mellitus with Result Comment: Incr eased risk for diabetes: 5.7 - 6.4 diabetes: >6.4 glycemic control for adults with diabetes: <7.0 Performed By: #### U RDS, ADDONUAPLUS #### [facility] [address] Basophils Auto (Bld) [#/Vol] Ordered By: Crow Dean on 11-04-2022 Basophils (Bld) [#/Vol] 0.1 10*3/uL 0.0-0.2 [facility] Basophils/100 WBC Auto (Bld) Ordered By: Crow Dean on 11-04-2022 Basophils/100 WBC (Bld) 0.8 % . [facility] Body fluid albumin measureme nt (mass/volume)Ordered By: Crow Dean on 11-04-2022 Albumin (Body fld) [Mass/Vol] 3.7 g/dL 3.2-5.5 [facility] Cholesterol [Mass/volume] in Serum or PlasmaOrdered By: Crow Dean on 11-04-2022 Cholesterol [Mass/Vol] 167 mg/dL 140-200 [facility] Comment on above: Chol less than 200 m g/dl low riskChol 201-239 mg/dl borderline riskChol 240 mg/dl and greater high risk Cholesterol in LDL Calc [Mas s/Vol]Ordered By: Crow Dean on 11-04-2022 Cholesterol in LDL [Mass/Vol] 73 mg/dL 0-100 [facility] Comment on above: LDL ATP III CLASSIFI CATIONLDL less than 100 mg/dL OptimalLDL 100-129 mg/dL Near or above optimalLDL 130-159 mg/dL Borderline highLDL 160-189 mg/dL HighLDL greater than 189 mg/dL Very high Cholesterol in VLDL Calc [Ma ss/Vol]Ordered By: Crow Dean on 11-04-2022 Cholesterol in VLDL [Mass/Vol] 56 mg/dL [facility] Complete Blood Count Auto Di ffon 11-04-2022 Basophils (Bld) [#/Vol] 0.1 10*3/uL Normal 0.0-0.2 [facility] Comment on above: Order Comment: Reaso n for Exam Weight loss;Nausea vomiting;Type 2 diabetes mellitus with Result Comment: PERF ORMED BY: [place] [address] PATHOLOGIST [employer] ANIL GUAMAN M.D. Performed By: #### U RDS, ADDONUAPLUS #### [facility] [address] [place] [address] Basophils/100 WBC (Bld) 0.8 % Normal . [facility] Comment on above: Order Comment: Reaso n for Exam Weight loss;Nausea vomiting;Type 2 diabetes mellitus with Performed By: #### U RDS, ADDONUAPLUS #### [facility] [address] [place] [address] [place] Eosinophils (Bld) [#/Vol] 0.1 10*3/uL Normal 0.0-0.45 [facility] Comment on above: Order Comment: Reaso n for Exam Weight loss;Nausea vomiting;Type 2 diabetes mellitus with Performed By: #### U RDS, ADDONUAPLUS #### [facility] [address] [place] [address] [place] Eosinophils/100 WBC (Bld) 1.2 % Normal . [facility] Comment on above: Order Comment: Reaso n for Exam Weight loss;Nausea vomiting;Type 2 diabetes mellitus with Performed By: #### U RDS, ADDONUAPLUS #### [facility] [address] [place] [address] Erythrocyte distribution width (RBC) [Ratio] 12.5 % Normal 12.0-14.8 [facility] Comment on above: Order Comment: Reaso n for Exam Weight loss;Nausea vomiting;Type 2 diabetes mellitus with Performed By: #### U RDS, ADDONUAPLUS #### [address] Hematocrit (Bld) [Volume fraction] 39.4 % Normal 38.8-50.0 [facility] Comment on above: Order Comment: Reaso n for Exam Weight loss;Nausea vomiting;Type 2 diabetes mellitus with Performed By: #### U RDS, ADDONUAPLUS #### [address] Hemoglobin (Bld) [Mass/Vol] 13.6 g/dL Normal 13.0-17.0 [facility] Comment on above: Order Comment: Reaso n for Exam Weight loss;Nausea vomiting;Type 2 diabetes mellitus with Performed By: #### U RDS, ADDONUAPLUS #### [address] Lymphocytes (Bld) [#/Vol] 1.6 10*3/uL Normal 1.00-4.8 [facility] Comment on above: Order Comment: Reaso n for Exam Weight loss;Nausea vomiting;Type 2 diabetes mellitus with Performed By: #### U RDS, ADDONUAPLUS #### [address] Lymphocytes/100 WBC (Bld) 27.3 % Normal . [facility] Comment on above: Order Comment: Reaso n for Exam Weight loss;Nausea vomiting;Type 2 diabetes mellitus with Performed By: #### U RDS, ADDONUAPLUS #### [address] MCH (RBC) [Entitic mass] 32.1 pg Normal 27.5-35.2 [facility] Comment on above: Order Comment: Reaso n for Exam Weight loss;Nausea vomiting;Type 2 diabetes mellitus with Performed By: #### U RDS, ADDONUAPLUS #### [address] MCV (RBC) [Entitic vol] 93.0 fL Normal 83.5-101 [facility] Comment on above: Order Comment: Reaso n for Exam Weight loss;Nausea vomiting;Type 2 diabetes mellitus with Performed By: #### U RDS, ADDONUAPLUS #### [facility] [address] [place] [address] Mean Corpuscular HGB Conc 34.5 g/dL Normal 32.5-35.6 [facility] Comment on above: Order Comment: Reaso n for Exam Weight loss;Nausea vomiting;Type 2 diabetes mellitus with Performed By: #### U RDS, ADDONUAPLUS #### [facility] [address] [place] [address] [place] Monocytes (Bld) [#/Vol] 0.4 10*3/uL Normal 0.0-0.8 [facility] Comment on above: Order Comment: Reaso n for Exam Weight loss;Nausea vomiting;Type 2 diabetes mellitus with Performed By: #### U RDS, ADDONUAPLUS #### [place] [address] [place] Monocytes/100 WBC (Bld) 6.2 % Normal . [facility] Comment on above: Order Comment: Reaso n for Exam Weight loss;Nausea vomiting;Type 2 diabetes mellitus with Performed By: #### U RDS, ADDONUAPLUS #### [place] [address] [place] Neutrophils (Bld) [#/Vol] 3.9 10*3/uL Normal 1.8-7.7 [facility] Comment on above: Order Comment: Reaso n for Exam Weight loss;Nausea vomiting;Type 2 diabetes mellitus with Performed By: #### U RDS, ADDONUAPLUS #### [facility] [address] [place] [address] [place] Neutrophils/100 WBC (Bld) 64.5 % Normal . [facility] Comment on above: Order Comment: Reaso n for Exam Weight loss;Nausea vomiting;Type 2 diabetes mellitus with Performed By: #### U RDS, ADDONUAPLUS #### [facility] [address] [place] [address] [place] NRBC% 0.1 /100{WBC} Normal 0-0.5 [facility] Comment on above: Order Comment: Reaso n for Exam Weight loss;Nausea vomiting;Type 2 diabetes mellitus with Performed By: #### U RDS, ADDONUAPLUS #### [address] [place] [address] [place] Platelet mean volume (Bld) [Entitic vol] 8.6 fL Normal 6.6-10.1 [facility] Comment on above: Order Comment: Reaso n for Exam Weight loss;Nausea vomiting;Type 2 diabetes mellitus with Performed By: #### U RDS, ADDONUAPLUS #### [facility] [address] Platelets (Bld) [#/Vol] 168 10*3/uL Normal 150-450 [facility] Comment on above: Order Comment: Reaso n for Exam Weight loss;Nausea vomiting;Type 2 diabetes mellitus with Performed By: #### U RDS, ADDONUAPLUS #### [facility] [address] [place] [address] RBC (Bld) [#/Vol] 4.24 10*6/uL Normal 3.90-5.60 [facility] Comment on above: Order Comment: Reaso n for Exam Weight loss;Nausea vomiting;Type 2 diabetes mellitus with Performed By: #### U RDS, ADDONUAPLUS #### [facility] [address] [place] [address] WBC (Bld) [#/Vol] 6.0 10*3/uL Normal 4.1-10.5 [facility] Comment on above: Order Comment: Reaso n for Exam Weight loss;Nausea vomiting;Type 2 diabetes mellitus with Performed By: #### U RDS, ADDONUAPLUS #### [facility] [address] [place] [address] Comprehensive Metabolic Pane rudolph 11-04-2022 Albumin [Mass/Vol] 3.7 g/dL Normal 3.2-5.5 [facility] Comment on above: Order Comment: Reaso n for Exam Weight loss;Nausea vomiting;Type 2 diabetes mellitus with PT IS FASTING Performed By: #### C MP, TSH3, LIPID #### [facility] [address] [place] [address] Albumin/Globulin [Mass ratio] 1.3 {ratio} Normal [facility] Comment on above: Order Comment: Reaso n for Exam Weight loss;Nausea vomiting;Type 2 diabetes mellitus with PT IS FASTING Performed By: #### C MP, TSH3, LIPID #### [facility] [address] ALP [Catalytic activity/Vol] 58 U/L Normal 32-92 [facility] Comment on above: Order Comment: Reaso n for Exam Weight loss;Nausea vomiting;Type 2 diabetes mellitus with PT IS FASTING Performed By: #### C MP, TSH3, LIPID #### [facility] [address] ALT [Catalytic activity/Vol] 18 U/L Normal 10-60 [facility] Comment on above: Order Comment: Reaso n for Exam Weight loss;Nausea vomiting;Type 2 diabetes mellitus with PT IS FASTING Performed By: #### C MP, TSH3, LIPID #### [facility] [address] Anion gap [Moles/Vol] 14.3 mmol/L Normal 6.0-15.0 [facility] Comment on above: Order Comment: Reaso n for Exam Weight loss;Nausea vomiting;Type 2 diabetes mellitus with PT IS FASTING Performed By: #### C MP, TSH3, LIPID #### [facility] [address] [place] [address] AST [Catalytic activity/Vol] 12 U/L Normal 10-42 [facility] Comment on above: Order Comment: Reaso n for Exam Weight loss;Nausea vomiting;Type 2 diabetes mellitus with PT IS FASTING Performed By: #### C MP, TSH3, LIPID #### [facility] [address] [place] [address] Bilirubin [Mass/Vol] 1.0 mg/dL Normal 0.3-1.2 [facility] Comment on above: Order Comment: Reaso n for Exam Weight loss;Nausea vomiting;Type 2 diabetes mellitus with PT IS FASTING Performed By: #### C MP, TSH3, LIPID #### [facility] [address] Calcium [Mass/Vol] 9.2 mg/dL Normal 8.2-10.2 [facility] Comment on above: Order Comment: Reaso n for Exam Weight loss;Nausea vomiting;Type 2 diabetes mellitus with PT IS FASTING Performed By: #### C MP, TSH3, LIPID #### [facility] [address] Chloride [Moles/Vol] 96 mmol/L Normal 95-114 [facility] Comment on above: Order Comment: Reaso n for Exam Weight loss;Nausea vomiting;Type 2 diabetes mellitus with PT IS FASTING Performed By: #### C MP, TSH3, LIPID #### [facility] [address] CO2 [Moles/Vol] 27.1 mmol/L Normal 22.0-30.0 [facility] Comment on above: Order Comment: Reaso n for Exam Weight loss;Nausea vomiting;Type 2 diabetes mellitus with PT IS FASTING Performed By: #### C MP, TSH3, LIPID #### [address] Creatinine [Mass/Vol] 0.93 mg/dL Normal 0.64-1.27 [facility] Comment on above: Order Comment: Reaso n for Exam Weight loss;Nausea vomiting;Type 2 diabetes mellitus with PT IS FASTING Performed By: #### C MP, TSH3, LIPID #### [address] Estimated GFR ( Ak[place] > 60 [facility] Comment on above: Order Comment: Reaso n for Exam Weight loss;Nausea vomiting;Type 2 diabetes mellitus with PT IS FASTING Result Comment: GFR estimated reference range: According to KDOQI guidelines, <60 ml/min/1.73m2 is sufficient to diagnose a patient with chronic kidney disease. Performed By: #### C MP, TSH3, LIPID #### [address] Estimated GFR (Non- Am > 60 [facility] Comment on above: Order Comment: Reaso n for Exam Weight loss;Nausea vomiting;Type 2 diabetes mellitus with PT IS FASTING Performed By: #### C MP, TSH3, LIPID #### [place] [address] [place] Globulin (S) [Mass/Vol] 2.9 g/dL Normal [facility] Comment on above: Order Comment: Reaso n for Exam Weight loss;Nausea vomiting;Type 2 diabetes mellitus with PT IS FASTING Performed By: #### C MP, TSH3, LIPID #### [facility] [address] Glucose [Mass/Vol] 242 mg/dL High 70-100 [facility] Comment on above: Order Comment: Reaso n for Exam Weight loss;Nausea vomiting;Type 2 diabetes mellitus with PT IS FASTING Result Comment: [facility] Glucose Reference Range is dependent on time and content of last meal. Glucose of more than 200 mg/dL in a nonstressed, ambulatory subject supports the diagnosis of Diabetes Mellitus. ADA recommended reference range Performed By: #### C MP, TSH3, LIPID #### [facility] [address] Potassium [Moles/Vol] 4.4 mmol/L Normal 3.5-5.1 [facility] Comment on above: Order Comment: Reaso n for Exam Weight loss;Nausea vomiting;Type 2 diabetes mellitus with PT IS FASTING Performed By: #### C MP, TSH3, LIPID #### [facility] [address] [place] [address] [place] Protein [Mass/Vol] 6.6 g/dL Normal 6.1-7.9 [facility] Comment on above: Order Comment: Reaso n for Exam Weight loss;Nausea vomiting;Type 2 diabetes mellitus with PT IS FASTING Performed By: #### C MP, TSH3, LIPID #### [facility] [address] [place] [address] [place] Sodium [Moles/Vol] 133 mmol/L Low 136-146 [facility] Comment on above: Order Comment: Reaso n for Exam Weight loss;Nausea vomiting;Type 2 diabetes mellitus with PT IS FASTING Performed By: #### C MP, TSH3, LIPID #### [facility] [address] [place] [id number] [place] Urea nitrogen [Mass/Vol] 14 mg/dL Normal 9-23 [facility] Comment on above: Order Comment: Reaso n for Exam Weight loss;Nausea vomiting;Type 2 diabetes mellitus with PT IS FASTING Performed By: #### C MP, TSH3, LIPID #### [facility] [address] Creatinine [Mass/volume] in UrineOrdered By: Crow Dean on 11-04-2022 Creatinine (U) [Mass/Vol] 276.3 mg/dL [facility] Comment on above: No reference range e stablished Creatinine and Glomerular fi ltration rate.predicted panel (S/P/Bld)Ordered By: Crow Dean on 11-04-2022 Creatinine [Mass/Vol] 0.93 mg/dL 0.64-1.27 [facility] Eosinophils Auto (Bld) [#/Vo l]Ordered By: Crow Dean on 11-04-2022 Eosinophils (Bld) [#/Vol] 0.1 10*3/uL 0.0-0.45 [facility] Eosinophils/100 WBC Auto (Bl d)Ordered By: Crow Daen on 11-04-2022 Eosinophils/100 WBC (Bld) 1.2 % . [facility] Erythrocyte distribution wid th Auto (RBC) [Ratio]Ordered By: Crow Dean on 11-04-2022 Erythrocyte distribution width (RBC) [Ratio] 12.5 % 12.0-14.8 [facility] Estimated glomerular filtrat ion rate (GFR) non- AmericanOrdered By: Crow Dean on 11-04-2022 GFR/1.73 sq M.predicted among non-blacks MDRD (S/P/Bld) [Vol rate/Area] > 60 mL/Min [facility] Globulin Calc (S) [Mass/Vol] Ordered By: Crow Dean on 11-04-2022 Globulin (S) [Mass/Vol] 2.9 g/dL [facility] Glucose mean value [Mass/vol ume] in Blood Estimated from glycated hemoglobinOrdered By: Crow Dean on 11-04-2022 Average glucose Estimated from glycated hemoglobin (Bld) [Mass/Vol] 220 mg/dL [facility] Hematocrit Auto (Bld) [Volum e fraction]Ordered By: rCow Dean on 11-04-2022 Hematocrit (Bld) [Volume fraction] 39.4 % 38.8-50.0 [facility] Hemoglobin A1c percentageOrd ered By: Crow Dean on 11-04-2022 HbA1c (Bld) [Mass fraction] 9.3 % 4.3-5.6 [facility] Comment on above: Increased risk for d iabetes: 5.7 - 6.4diabetes: >6.4glycemic control for adults with diabetes: <7.0 Hemoglobin [Mass/volume] in BloodOrdered By: Crow Dean on 11-04-2022 Hemoglobin (Bld) [Mass/Vol] 13.6 g/dL 13.0-17.0 [facility] Leukocytes [#/volume] correc billy for nucleated erythrocytes in Blood by Automated counOrdered By: Crow Dean on 11-04-2022 WBC corrected for nucl RBC Auto (Bld) [#/Vol] 6.0 10*3/uL 4.1-10.5 [facility] Lipid Panelon 11-04-2022 Cholesterol [Mass/Vol] 167 mg/dL Normal 140-200 [facility] Comment on above: Order Comment: Reaso n for Exam Weight loss;Nausea vomiting;Type 2 diabetes mellitus with PT IS FASTING Result Comment: Chol less than 200 mg/dl low risk Chol 201-239 mg/dl borderline risk Chol 240 mg/dl and greater high risk Performed By: #### C MP, TSH3, LIPID #### [facility] [address] Cholesterol in HDL [Mass/Vol] 37 mg/dL Normal 29-71 [facility] Comment on above: Order Comment: Reaso n for Exam Weight loss;Nausea vomiting;Type 2 diabetes mellitus with PT IS FASTING Result Comment: HDL CHOL ATP-III CLASSIFICATION Cardiovascular Risk HDL > or equal to 60 mg/dL LOW HDL < 40 mg/dL HIGH Performed By: #### C MP, TSH3, LIPID #### [facility] [address] [place] [id number] [facility] Cholesterol.total/Chol esterol in HDL [Mass ratio] 4.5 {ratio} Normal <5.0 [facility] Comment on above: Order Comment: Reaso n for Exam Weight loss;Nausea vomiting;Type 2 diabetes mellitus with PT IS FASTING Performed By: #### C MP, TSH3, LIPID #### [facility] [address] LDL Cholesterol,Calculated 73 mg/dL Normal 0-100 [facility] Comment on above: Order Comment: Reaso n for Exam Weight loss;Nausea vomiting;Type 2 diabetes mellitus with PT IS FASTING Result Comment: LDL ATP III CLASSIFICATION LDL less than 100 mg/dL Optimal LDL 100-129 mg/dL Near or above optimal LDL 130-159 mg/dL Borderline high LDL 160-189 mg/dL High LDL greater than 189 mg/dL Very high Performed By: #### C MP, TSH3, LIPID #### [facility] [address] Triglyceride w/Reflex 284 mg/dL High 35-149 [facility] Comment on above: Order Comment: Reaso [...] By: #### C MP, TSH3, LIPID #### [facility] [address] VLDL CHOLESTEROL 56 mg/dL Normal [facility] Comment on above: Order Comment: Reaso n for Exam Weight loss;Nausea vomiting;Type 2 diabetes mellitus with PT IS FASTING Performed By: #### C ORI, TSH3, LIPID #### [facility] [address] Lymphocytes Auto (Bld) [#/Vo l]Ordered By: Crow Dean on 11-04-2022 Lymphocytes (Bld) [#/Vol] 1.6 10*3/uL 1.00-4.8 [facility] Lymphocytes/100 WBC Auto (Bl d)Ordered By: Crow Dean on 11-04-2022 Lymphocytes/100 WBC (Bld) 27.3 % . [facility] MCH Auto (RBC) [Entitic mass ]Ordered By: Crow Dean on 11-04-2022 MCH (RBC) [Entitic mass] 32.1 pg 27.5-35.2 [facility] MCHC Auto (RBC) [Mass/Vol]Or dered By: Crow Dean on 11-04-2022 MCHC (RBC) [Mass/Vol] 34.5 g/dL 32.5-35.6 [facility] MCV Auto (RBC) [Entitic vol] Ordered By: Crow Dean on 11-04-2022 MCV (RBC) [Entitic vol] 93.0 fL 83.5-101 [facility] MicroAlb Creat Ratio,Uon Albumin DL <= 20 mg/L (U) [Mass/Vol] 1.9 mg/dL High 0.0-1.8 [facility] Comment on above: Order Comment: Reaso n for Exam Weight loss;Nausea vomiting;Type 2 diabetes mellitus with Performed By: #### V BG #### Point of Care testing , Creatinine, Urine (Random) 276.3 mg/dL Normal [facility] Comment on above: Order Comment: Reaso n for Exam Weight loss;Nausea vomiting;Type 2 diabetes mellitus with Result Comment: No r eference range established Performed By: #### V BG #### Point of Care testing , Microalbumin/Creatinin e Ratio 6.0 mg/g Normal 0.0-30.0 [facility] Comment on above: Order Comment: Reaso n for Exam Weight loss;Nausea vomiting;Type 2 diabetes mellitus with Result Comment: 30-3 00 mg/g indicates an increased risk for diabetic nephropathy. Greater than 300 mg/g is consistent with clinical nephropathy. (Am. J. Kidney Disease 1995, 25:107) PERFORMED BY: [facility] [address] [address] PATHOLOGIST [employer] ANIL GUAMAN M.D. Performed By: #### V BG #### Point of Care testing , Monocytes Auto (Bld) [#/Vol] Ordered By: Crow Dean on 11-04-2022 Monocytes (Bld) [#/Vol] 0.4 10*3/uL 0.0-0.8 [facility] Monocytes/100 WBC Auto (Bld) Ordered By: Crow Dean on 11-04-2022 Monocytes/100 WBC (Bld) 6.2 % . [facility] Neutrophils Auto (Bld) [#/Vo l]Ordered By: Crow Dean on 11-04-2022 Neutrophils (Bld) [#/Vol] 3.9 10*3/uL 1.8-7.7 [facility] Neutrophils/100 WBC Auto (Bl d)Ordered By: Crow Dean on 11-04-2022 Neutrophils/100 WBC (Bld) 64.5 % . [facility] No Panel InformationOrdered By: Crow Dean on 11-04-2022 Estimated GFR () > 60 mL/Min [facility] Comment on above: GFR estimated refere nce range: According to KDOQI guidelines, <60 ml/min/1.73m2 is sufficient to diagnose a patient with chronic kidney disease. Pharmacy Creatinine Clearance (Chem N/A [facility] Nucleated erythrocytes [Pres ence] in Blood by Automated countOrdered By: Crow Dean on 11-04-2022 Nucleated RBC Auto Ql (Bld) 0.1 /100{WBC} 0-0.5 [facility] Platelet mean volume Auto (B ld) [Entitic vol]Ordered By: Crow Dean on 11-04-2022 Platelet mean volume (Bld) [Entitic vol] 8.6 fL 6.6-10.1 [facility] Platelets Auto (Bld) [#/Vol] Ordered By: Crow Dean on 11-04-2022 Platelets (Bld) [#/Vol] 168 10*3/uL 150-450 [facility] Protein [Mass/volume] in Ser um or PlasmaOrdered By: Crow Dean on 11-04-2022 Protein [Mass/Vol] 6.6 g/dL 6.1-7.9 [facility] RBC Auto (Bld) [#/Vol]Ordere d By: Crow Dean on 11-04-2022 RBC (Bld) [#/Vol] 4.24 10*6/uL 3.90-5.60 [facility] Serum or plasma alanine humphrey otransferase measurement without P-5'-P (enzymatic activiOrdered By: Crow Dean on 11-04-2022 ALT No additional P-5'-P [Catalytic activity/Vol] 18 U/L 10-60 [facility] Serum or plasma albumin/glob ulin mass ratioOrdered By: Crow Dean on 11-04-2022 Albumin/Globulin [Mass ratio] 1.3 {ratio} [facility] Serum or plasma alkaline suzi sphatase measurement (enzymatic activity/volume)Ordered By: Crow Dean on 11-04-2022 ALP [Catalytic activity/Vol] 58 U/L 32-92 [facility] Serum or plasma anion gap de terminationOrdered By: Crow Dean on 11-04-2022 Anion gap [Moles/Vol] 14.3 mmol/L 6.0-15.0 [facility] Serum or plasma aspartate am inotransferase measurement (enzymatic activity/volume)Ordered By: Crow Dean on 11-04-2022 AST [Catalytic activity/Vol] 12 U/L 10-42 [facility] Serum or plasma calcium travis urement (mass/volume)Ordered By: Crow Dean on 11-04-2022 Calcium [Mass/Vol] 9.2 mg/dL 8.2-10.2 [facility] Serum or plasma chloride hollie surement (moles/volume)Ordered By: Crow Dean on 11-04-2022 Chloride [Moles/Vol] 96 mmol/L 95-114 [facility] Serum or plasma glucose travis urement (mass/volume)Ordered By: Crow Dean on 11-04-2022 Glucose [Mass/Vol] 242 mg/dL 70-100 [facility] Comment on above: ADA recommended refe rence rangeRandom Glucose Reference Range is dependent on time and content of last meal. Glucose of more than 200 mg/dL in a nonstressed, ambulatory subject supports the diagnosis of Diabetes Mellitus. Serum or plasma high density lipoprotein (HDL) cholesterol measurementOrdered By: Crow Dean on 11-04-2022 Cholesterol in HDL [Mass/Vol] 37 mg/dL 29-71 [facility] Comment on above: HDL CHOL ATP-III CLA SSIFICATION Cardiovascular RiskHDL > or equal to 60 mg/dL LOWHDL < 40 mg/dL HIGH Serum or plasma potassium me asurement (moles/volume)Ordered By: Crow Dean on 11-04-2022 Potassium [Moles/Vol] 4.4 mmol/L 3.5-5.1 [facility] Serum or plasma sodium measu rement (moles/volume)Ordered By: Crow Dean on 11-04-2022 Sodium [Moles/Vol] 133 mmol/L 136-146 [facility] Serum or plasma total biliru bin measurement (mass/volume)Ordered By: Crow Dean on 11-04-2022 Bilirubin [Mass/Vol] 1.0 mg/dL 0.3-1.2 [facility] Serum or plasma total carbon dioxide measurement (moles/volume)Ordered By: Crow Dean on 11-04-2022 CO2 [Moles/Vol] 27.1 mmol/L 22.0-30.0 [facility] Serum or plasma total choles terol/high density lipoprotein (HDL) cholesterol mass ratOrdered By: Crow Dean on 11-04-2022 Cholesterol.total/Chol esterol in HDL [Mass ratio] 4.5 {ratio} <5.0 [facility] Serum or plasma urea nitroge n measurement (mass/volume)Ordered By: Crow Dean on 11-04-2022 Urea nitrogen [Mass/Vol] 14 mg/dL 9-23 [facility] TSH DL <= 0.005 mIU/L QnOrde red By: Crow Dean on 11-04-2022 TSH Qn 1.62 m[IU]/L 0.45-5.33 [facility] Thyroid Stimulating Hormoneo n 11-04-2022 TSH Qn 1.62 m[IU]/L Normal 0.45-5.33 [facility] Comment on above: Order Comment: Reaso n for Exam Weight loss;Nausea vomiting;Type 2 diabetes mellitus with PT IS FASTING Result Comment: PERF ORMED BY: [facility] [address] [place] [address] PATHOLOGIST [employer] ANIL GUAMAN M.D. Performed By: #### C MP, TSH3, LIPID #### [facility] [address] Triglyceride [Mass/volume] i n Serum or PlasmaOrdered By: Crow Dean on 11-04-2022 Triglyceride [Mass/Vol] 284 mg/dL 35-149 [facility] Comment on above: TRIG ATP III [...] 20 mg/L (U) [Mass/Vol] 1.9 mg/dL 0.0-1.8 [facility] Urine microalbumin/creatinin e mass ratioOrdered By: Crow Dean on 11-04-2022 Albumin/Creatinine DL <= 20 mg/L (U) [Mass ratio] 6.0 mg/g 0.0-30.0 [facility] Comment on above: 30-300 mg/g indicate s an increased risk for diabetic nephropathy. Greater than 300 mg/g is consistent with clinical nephropathy. (Am. J. Kidney Disease 1995, 25:107) WBC Auto (Bld) [#/Vol]Ordere d By: Crow Dean on 11-04-2022 WBC (Bld) [#/Vol] 6.0 10*3/uL 4.1-10.5 [facility] Albumin [Mass/volume] in Ser um or PlasmaOrdered By: Ladi Mina on 10-26-2022 Albumin [Mass/Vol] 3.9 g/dL 3.2-5.5 [facility] Amphetamine Screen Ql (U)Ord ered By: Ladi Mina on 10-26-2022 Amphetamines Ql (U) Negative Negative [facility] Automated erythrocytes count in urine sediment (number/area)Ordered By: Ladi Mina on 10-26-2022 RBC Auto (Urine sed) [#/Area] 0-1 [HPF] 0-4 [facility] Automated leukocytes count i n urine sediment (number/area)Ordered By: Ladi Mina on 10-26-2022 WBC Auto (Urine sed) [#/Area] 1-2 [HPF] 0-4 [facility] Barbiturates [Presence] in U rineOrdered By: Ladi Mina on 10-26-2022 Barbiturates Ql (U) Negative Negative [facility] Basic Metabolic Panelon 09-29 Anion gap [Moles/Vol] 14.8 mmol/L Normal 6.0-15.0 [facility] Comment on above: Performed By: #### U NICOLAS, ADDONUAPLUS #### [facility] [address] Calcium [Mass/Vol] 9.0 mg/dL Normal 8.2-10.2 [facility] Comment on above: Performed By: #### U NICOLAS, ADDONUAPLUS #### [facility] [address] Chloride [Moles/Vol] 98 mmol/L Normal 95-114 [facility] Comment on above: Performed By: #### U RDS, ADDONUAPLUS #### [facility] [address] CO2 [Moles/Vol] 29.2 mmol/L Normal 22.0-30.0 [facility] Comment on above: Performed By: #### U RDS, ADDONUAPLUS #### [facility] [address] [place] [address] [place] Creatinine [Mass/Vol] 1.19 mg/dL Normal 0.64-1.27 [facility] Comment on above: Performed By: #### U RDS, ADDONUAPLUS #### [facility] [address] [place] [address] [place] Creatinine Clr Calc Pharmacy 76.46 [facility] Comment on above: Performed By: #### U RDS, ADDONUAPLUS #### [facility] [address] Estimated GFR ( [place] > 60 [facility] Comment on above: Result Comment: GFR estimated reference range: According to KDOQI guidelines, <60 ml/min/1.73m2 is sufficient to diagnose a patient with chronic kidney disease. Performed By: #### U NICOLAS, ADDONUAPLUS #### [address] Estimated GFR (Non- Am > 60 Normal [facility] Comment on above: Performed By: #### U NICOLAS, ADDONUAPLUS #### [address] Glucose [Mass/Vol] 284 mg/dL High 70-100 [facility] Comment on above: Result Comment: [place] om Glucose Reference Range is dependent on time and content of last meal. Glucose of more than 200 mg/dL in a nonstressed, ambulatory subject supports the diagnosis of Diabetes Mellitus. ADA recommended reference range Performed By: #### U NICOLAS, ADDONUAPLUS #### [address] Potassium [Moles/Vol] 4.0 mmol/L Normal 3.5-5.1 [facility] Comment on above: Performed By: #### U NICOLAS, ADDONUAPLUS #### [address] Sodium [Moles/Vol] 138 mmol/L Normal 136-146 [facility] Comment on above: Performed By: #### U NICOLAS, ADDONUAPLUS #### [address] Urea nitrogen [Mass/Vol] 19 mg/dL Normal 9-23 [facility] Comment on above: Performed By: #### U NICOLAS, ADDONUAPLUS #### [place] [address] [place] Basophils Auto (Bld) [#/Vol] Ordered By: Ladi Bullimore on 10-26-2022 Basophils (Bld) [#/Vol] 0.1 10*3/uL 0.0-0.2 [facility] Basophils/100 WBC Auto (Bld) Ordered By: Ladi Bullimore on 10-26-2022 Basophils/100 WBC (Bld) 0.9 % . [facility] Benzodiazepines [Presence] i n UrineOrdered By: Ladi Mina on 10-26-2022 Benzodiazepines Ql (U) Negative Negative [facility] Bilirubin Test strip Ql (U)O rdered By: Ladi Bullimore on 10-26-2022 Bilirubin Ql (U) Negative Negative [facility] COVID CepheidOrdered By: Jolene robbins Bullimore on 10-26-2022 SARS-CoV-2 (COVID-19) Ab IA Ql Negative Negative [facility] Comment on above: This is a duplicate Cepheid Xpert Xpress CoV-2/Flu/RSV Plus RNA by RT-PCR result to be used for statistical tracking purpose only. SARS-CoV-2 (COVID-19) RNA SILVIA+probe Ql (Unsp spec) [facility] SARS-CoV-2 (COVID-19) RNA SILVIA+probe Ql (Unsp spec) [facility] COVID-19 / Flu A/B / RSV [...] or Cepheid Disclaimer revoked sooner. PERFORMED BY: [place] [address] PATHOLOGIST [employer] ANIL GUAMAN M.D. [facility] Comment on above: Performed By: #### V BG #### Point of Care testing , CT abdomen pelvis wo conon 1 12-26-2021 CT abdomen pelvis [facility] [place] [address] CT Scan Report Signed 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 MR#: [id number] : 1970 Acct:[id number] Age/Sex: 52 / M ADM Date: 10/26/22 Loc: ER Room: Type: [facility] ER Attending Dr: Copies to: NOMI Lopez [...] Flor Almonte M.D.10/26/2022 10:05 AM Dictation Location: [place] [address] Transcribed By: [facility] 10/26/22 1005 Dictated By: Flor Almonte MD 10/26/22 0952 Signed By: 10/26/22 1005 [facility] Cannabinoids [Presence] in U rine by Screen methodOrdered By: Ladi Mina on 10-26-2022 Cannabinoids Screen Ql (U) Negative Negative [facility] Comment on above: These are unconfirme d results and should not be used for legal purposes. Drug Cut-Off Concentration: AMPH 1000 ng/mL CHRISTINA 200 ng/mL CHRISTIANO 200 ng/mL COCM 300 ng/mL OP 300 ng/mL PCP 25 ng/mL THC 20 ng/mL Cepheid COVID PCR Negativeon 10-26-2022 SARS-CoV-2 (COVID-19) RNA SILVIA+probe Ql (Unsp spec) Negative Normal Negative [facility] Comment on above: Result Comment: This is a duplicate [employer] Xpert Xpress CoV-2/Flu/RSV Plus RNA by RT-PCR result to be used for statistical tracking purpose only. PERFORMED BY: [place] [address] PATHOLOGIST [employer] BU[employer] ANIL GUAMAN M.D. Performed By: #### V BG #### Point of Care testing , Color Auto (U)Ordered By: Kathryn Mina on 10-26-2022 Color (U) Yellow Yellow [facility] Complete Blood Count Auto Di ffon 10-26-2022 Basophils (Bld) [#/Vol] 0.1 10*3/uL Normal 0.0-0.2 [facility] Comment on above: Result Comment: PERF ORMED BY: [place] [address] PATHOLOGIST [employer] BU[employer] ANIL GUAMAN M.D. Performed By: #### U RDS, ADDONUAPLUS #### [address] Basophils/100 WBC (Bld) 0.9 % Normal . [facility] Comment on above: Performed By: #### U RDS, ADDONUAPLUS #### [facility] [address] [place] [address] [place] Eosinophils (Bld) [#/Vol] 0.1 10*3/uL Normal 0.0-0.45 [facility] Comment on above: Performed By: #### U RDS, ADDONUAPLUS #### [place] [address] [place] Eosinophils/100 WBC (Bld) 1.0 % Normal . [facility] Comment on above: Performed By: #### U RDS, ADDONUAPLUS #### [facility] [address] [place] [address] Erythrocyte distribution width (RBC) [Ratio] 12.2 % Normal 12.0-14.8 [facility] Comment on above: Performed By: #### U RDS, ADDONUAPLUS #### [facility] [address] [place] [address] Hematocrit (Bld) [Volume fraction] 44.3 % Normal 38.8-50.0 [facility] Comment on above: Performed By: #### U RDS, ADDONUAPLUS #### [address] Hemoglobin (Bld) [Mass/Vol] 15.1 g/dL Normal 13.0-17.0 [facility] Comment on above: Performed By: #### U RDS, ADDONUAPLUS #### [address] Lymphocytes (Bld) [#/Vol] 1.8 10*3/uL Normal 1.00-4.8 [facility] Comment on above: Performed By: #### U RDS, ADDONUAPLUS #### [address] Lymphocytes/100 WBC (Bld) 27.0 % Normal . [facility] Comment on above: Performed By: #### U RDS, ADDONUAPLUS #### [address] MCH (RBC) [Entitic mass] 32.0 pg Normal 27.5-35.2 [facility] Comment on above: Performed By: #### U RDS, ADDONUAPLUS #### [address] MCV (RBC) [Entitic vol] 93.9 fL Normal 83.5-101 [facility] Comment on above: Performed By: #### U RDS, ADDONUAPLUS #### [address] Mean Corpuscular HGB Conc 34.1 g/dL Normal 32.5-35.6 [facility] Comment on above: Performed By: #### U RDS, ADDONUAPLUS #### [address] Monocytes (Bld) [#/Vol] 0.4 10*3/uL Normal 0.0-0.8 [facility] Comment on above: Performed By: #### U RDS, ADDONUAPLUS #### [address] [place] [address] [place] Monocytes/100 WBC (Bld) 6.1 % Normal . [facility] Comment on above: Performed By: #### U RDS, ADDONUAPLUS #### [facility] [address] [place] [address] [place] Neutrophils (Bld) [#/Vol] 4.3 10*3/uL Normal 1.8-7.7 [facility] Comment on above: Performed By: #### U RDS, ADDONUAPLUS #### [place] [address] [place] Neutrophils/100 WBC (Bld) 65.0 % Normal . [facility] Comment on above: Performed By: #### U NICOLAS, ADDONUAPLUS #### [place] [address] [place] Nucleated RBC/100 WBC (Bld) [Ratio] 0.0 % Normal 0-0.5 [facility] Comment on above: Performed By: #### U NICOLAS, ADDONUAPLUS #### [place] [address] [place] Platelet mean volume (Bld) [Entitic vol] 8.6 fL Normal 6.6-10.1 [facility] Comment on above: Performed By: #### U RDS, ADDONUAPLUS #### [facility] [address] [place], [place] [id number] [place] Platelets (Bld) [#/Vol] 203 10*3/uL Normal 150-450 [facility] Comment on above: Performed By: #### U RDS, ADDONUAPLUS #### [facility] [address] [place] [address] [place] RBC (Bld) [#/Vol] 4.72 10*6/uL Normal 3.90-5.60 [facility] Comment on above: Performed By: #### U RDS, ADDONUAPLUS #### [facility] [address] [place] [address] [place] WBC (Bld) [#/Vol] 6.5 10*3/uL Normal 4.5-11.0 [facility] Comment on above: Performed By: #### U RDS, ADDONUAPLUS #### [facility] [address] Creatinine and Glomerular fi ltration rate.predicted panel (S/P/Bld)Ordered By: Ladi Mina on 10-26-2022 Creatinine [Mass/Vol] 1.19 mg/dL 0.64-1.27 [facility] Dipstick and Microscopicon 1 12-26-2021 Appearance (U) Clear Normal Clear [facility] Comment on above: Order Comment: Name Collection Type:: Clean-Voided Midstream Performed By: #### U RDS, ADDONUAPLUS #### [facility] [address] [place] [address] Bacteria,Urine None Seen Normal None Seen [facility] Comment on above: Order Comment: Name Collection Type:: Clean-Voided Midstream Performed By: #### U RDS, ADDONUAPLUS #### [facility] [address] [place] [address] [place] Bilirubin,Urine Negative Normal Negative [facility] Comment on above: Order Comment: Name Collection Type:: Clean-Voided Midstream Performed By: #### U RDS, ADDONUAPLUS #### [facility] [address] [place] [address] Color (U) Yellow Normal Yellow [facility] Comment on above: Order Comment: Name Collection Type:: Clean-Voided Midstream Performed By: #### U RDS, ADDONUAPLUS #### [facility] [address] [place] [address] [place] Glucose Ql (U) 500 mg/dL High Normal [facility] Comment on above: Order Comment: Name Collection Type:: Clean-Voided Midstream Performed By: #### U RDS, ADDONUAPLUS #### [facility] [address] [place] [address] [place] Hyaline Casts,Urine 0-8 Normal 0-8 [facility] Comment on above: Order Comment: Name Collection Type:: Clean-Voided Midstream Result Comment: PERF ORMED BY: [place] [id number] PATHOLOGIST [employer] BU[employer] ANIL GUAMAN M.D. Performed By: #### U RDS, ADDONUAPLUS #### [address] Ketones Ql (U) Trace High Negative [facility] Comment on above: Order Comment: Name Collection Type:: Clean-Voided Midstream Performed By: #### U RDS, ADDONUAPLUS #### [address] Leukocyte esterase Test strip Ql (U) Negative Normal Negative [facility] Comment on above: Order Comment: Name Collection Type:: Clean-Voided Midstream Performed By: #### U RDS, ADDONUAPLUS #### [address] Nitrite,Urine Negative Normal Negative [facility] Comment on above: Order Comment: Name Collection Type:: Clean-Voided Midstream Performed By: #### U RDS, ADDONUAPLUS #### [address] Occult Blood,Urine Negative Normal Negative [facility] Comment on above: Order Comment: Name Collection Type:: Clean-Voided Midstream Result Comment: PERF ORMED BY: [place] [address] PATHOLOGIST [employer] BU[employer] ANIL GUAMAN M.D. Performed By: #### U RDS, ADDONUAPLUS #### [facility] [address] [place] [address] [place] pH (U) 7.0 [pH] Normal 5.0-9.0 [facility] Comment on above: Order Comment: Name Collection Type:: Clean-Voided Midstream Performed By: #### U RDS, ADDONUAPLUS #### [place] [address] [place] Protein,Urine Trace High Negative [facility] Comment on above: Order Comment: Name Collection Type:: Clean-Voided Midstream Performed By: #### U RDS, ADDONUAPLUS #### [address] [place] [address] [place] RBC LM.HPF (Urine sed) [#/Area] 0 /[HPF] Normal 0-4 [facility] Comment on above: Order Comment: Name Collection Type:: Clean-Voided Midstream Performed By: #### U RDS, ADDONUAPLUS #### [address] Specificy [place],Urine 1.027 Normal 1.001-1.030 [facility] Comment on above: Order Comment: Name Collection Type:: Clean-Voided Midstream Performed By: #### U RDS, ADDONUAPLUS #### [address] Squamous Epithelial Cell,Urine 0-1 Normal 0-2 [facility] Comment on above: Order Comment: Name Collection Type:: Clean-Voided Midstream Performed By: #### U RDS, ADDONUAPLUS #### [address] Urobilinogen,Urine Normal Normal Normal [facility] Comment on above: Order Comment: Name Collection Type:: Clean-Voided Midstream Performed By: #### U RDS, ADDONUAPLUS #### [address] WBC,Urine 1-2 Normal 0-4 [facility] Comment on above: Order Comment: Name Collection Type:: Clean-Voided Midstream Performed By: #### U RDS, ADDONUAPLUS #### [address] Direct bilirubin measurement Ordered By: Ladi Mina on 10-26-2022 Bilirubin.direct [Mass/Vol] 0.2 mg/dL 0.0-0.4 [facility] Drug Screen,Urineon 10-26-20 Amphetamine Screen,Urine Negative Normal Negative [facility] Comment on above: Performed By: #### U RDS, ADDONUAPLUS #### [address] Barbiturate Screen,Urine Negative Normal Negative [facility] Comment on above: Performed By: #### U RDS, ADDONUAPLUS #### [facility] [address] [place] [address] [place] Benzodiazepines Screen,Urine Negative Normal Negative [facility] Comment on above: Performed By: #### U RDS, ADDONUAPLUS #### [facility] [address] [place] [address] Cannabinoid Screen,Urine Negative Normal Negative [facility] Comment on above: Result Comment: Thes e are unconfirmed results and should not be used for legal purposes. Drug Cut-Off Concentration: AMPH 1000 ng/mL CHRISTINA 200 ng/mL CHRISTIANO 200 ng/mL COCM 300 ng/mL OP 300 ng/mL PCP 25 ng/mL THC 20 ng/mL PERFORMED BY: [place] [address] PATHOLOGIST [employer] BU[employer] ANIL GUAMAN M.D. Performed By: #### U RDS, ADDONUAPLUS #### [place] [address] [place] Cocaine Screen,Urine Negative Normal Negative [facility] Comment on above: Performed By: #### U RDS, ADDONUAPLUS #### [facility] [address] [place] [address] [place] Opiate Screen,Urine Negative Normal Negative [facility] Comment on above: Performed By: #### U RDS, ADDONUAPLUS #### [address] Phencyclidine Screen,Urine Negative Normal Negative [facility] Comment on above: Performed By: #### U RDS, ADDONUAPLUS #### [facility] [address] [place] [address] [place] ECG 12 lead ECGon 10-26-2022 ECG 12 lead ECG [facility] [place] [address] [place] [address] Electrocardiograph Report Signed 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 MR#: [id number] : 1970 Acct:[id number] Age/Sex: 52 / M ADM Date: 10/26/22 Loc: ER Room: Type: [facility] ER Attending Dr: Ordering Provider: NOMI [...] sinus rhythm Confirmed by Dave HENDRICKS DO ([id number]) on 10/26/2022 12:15:39 PM Referred By: Electronically Signed By:Dave HENDRICKS DO Transcribed By: MUS Signed By Dave Hendricks DO 1 12/26/21 1215 Normal [facility] Eosinophils Auto (Bld) [#/Vo l]Ordered By: Ladi Mina on 10-26-2022 Eosinophils (Bld) [#/Vol] 0.1 10*3/uL 0.0-0.45 [facility] Eosinophils/100 WBC Auto (Bl d)Ordered By: Ladi Mina on 10-26-2022 Eosinophils/100 WBC (Bld) 1.0 % . [facility] Erythrocyte distribution wid th Auto (RBC) [Ratio]Ordered By: Ladi Mina on 10-26-2022 Erythrocyte distribution width (RBC) [Ratio] 12.2 % 12.0-14.8 [facility] Estimated glomerular filtrat ion rate (GFR) non- AmericanOrdered By: Ladi Mina on 10-26-2022 GFR/1.73 sq M.predicted among non-blacks MDRD (S/P/Bld) [Vol rate/Area] > 60 mL/Min [facility] Ethyl Alcohol Profileon 09-29 Ethanol [Mass/Vol] mg/dL Normal [facility] Comment on above: Performed By: #### U NICOLAS, ADDBLAIRUASHELLEY #### [address] Percent Ethanol Not performed Normal [facility] Comment on above: Result Comment: PERF ORMED BY: [place] [address] PATHOLOGIST [employer] BUILDER AINL GUAMAN M.D. Performed By: #### U NICOLAS, ADDONUAPLUS #### [facility] [address] [place] [address] Globulin Calc (S) [Mass/Vol] Ordered By: Ladi Bullimore on 10-26-2022 Globulin (S) [Mass/Vol] 3.3 g/dL [facility] Hematocrit Auto (Bld) [Volum e fraction]Ordered By: Ladi Bullimore on 10-26-2022 Hematocrit (Bld) [Volume fraction] 44.3 % 38.8-50.0 [facility] Hemoglobin [Mass/volume] in BloodOrdered By: Ladi Bullimore on 10-26-2022 Hemoglobin (Bld) [Mass/Vol] 15.1 g/dL 13.0-17.0 [facility] Hepatic Panelon 10-26-2022 Albumin [Mass/Vol] 3.9 g/dL Normal 3.2-5.5 [facility] Comment on above: Performed By: #### U NICOLAS, ADDONUAPLUS #### [facility] [address] [place] [address] Albumin/Globulin [Mass ratio] 1.2 {ratio} Normal [facility] Comment on above: Performed By: #### U RDS, ADDONUAPLUS #### [facility] [address] [place] [address] ALP [Catalytic activity/Vol] 67 U/L Normal 32-92 [facility] Comment on above: Performed By: #### U RDS, ADDONUAPLUS #### [facility] [address] [place] [address] [place] ALT [Catalytic activity/Vol] 20 U/L Normal 10-60 [facility] Comment on above: Performed By: #### U RDS, ADDONUAPLUS #### [address] AST [Catalytic activity/Vol] 20 U/L Normal 10-42 [facility] Comment on above: Performed By: #### U RDS, ADDONUAPLUS #### [facility] [address] [place] [address] [place] Bilirubin [Mass/Vol] 1.2 mg/dL Normal 0.3-1.2 [facility] Comment on above: Performed By: #### U RDS, ADDONUAPLUS #### [facility] [address] Bilirubin,Indirect 1.0 mg/dL Normal [facility] Comment on above: Performed By: #### U RDS, ADDONUAPLUS #### [facility] [address] Bilirubin.indirect [Mass/Vol] 0.2 mg/dL Normal 0.0-0.4 [facility] Comment on above: Performed By: #### U NICOLAS, ADDONUAPLUS #### [facility] [address] Globulin (S) [Mass/Vol] 3.3 g/dL Normal [facility] Comment on above: Performed By: #### U NICOLAS, ADDONUAPLUS #### [facility] [address] Protein [Mass/Vol] 7.2 g/dL Normal 6.1-7.9 [facility] Comment on above: Performed By: #### U NICOLAS, ADDONUAPLUS #### [address] Ketones Auto test strip (U) [Mass/Vol]Ordered By: Ladi Mina on 10-26-2022 Ketones (U) [Mass/Vol] Trace Negative [facility] - Chemistry and C hemistry - challengeOrdered By: Ladi Mina on 10-26-2022 Lipase [Catalytic activity/Vol] 39.0 U/L -51 [facility] - Drug toxicology Ordered By: Ladi Mina on 10-26-2022 Opiates Ql (U) Negative Negative [facility] - Hematology and Cell countsOrdered By: Ladi Mina on 10-26-2022 Nucleated RBC/100 WBC (Bld) [Ratio] 0.0 % 0-0.5 [facility] - UrinalysisOrder ed By: Ladi Mina on 10-26-2022 Hyaline casts LM Ql (Urine sed) 0-8 [LPF] 0-8 [facility] Leukocytes [#/volume] in Blo od by Automated countOrdered By: Ladi Bullimore on 10-26-2022 WBC (Bld) [#/Vol] 6.5 10*3/uL 4.5-11.0 [facility] Lipaseon 10-26-2022 Lipase [Catalytic activity/Vol] 39.0 U/L Normal 22-51 [facility] Comment on above: Result Comment: PERF ORMED BY: [place] [address] PATHOLOGIST [employer] BUIL[employer] ANIL GUAMAN M.D. Performed By: #### U RDS, ADDONUAPLUS #### [address] Lymphocytes Auto (Bld) [#/Vo l]Ordered By: Ladi Bullimore on 10-26-2022 Lymphocytes (Bld) [#/Vol] 1.8 10*3/uL 1.00-4.8 [facility] Lymphocytes/100 WBC Auto (Bl d)Ordered By: Ladi Bullimore on 10-26-2022 Lymphocytes/100 WBC (Bld) 27.0 % . [facility] MCH Auto (RBC) [Entitic mass ]Ordered By: Ladi Bullimore on 10-26-2022 MCH (RBC) [Entitic mass] 32.0 pg 27.5-35.2 [facility] MCHC Auto (RBC) [Mass/Vol]Or dered By: Ladi Bullimore on 10-26-2022 MCHC (RBC) [Mass/Vol] 34.1 g/dL 32.5-35.6 [facility] MCV Auto (RBC) [Entitic vol] Ordered By: Ladi Bullimore on 10-26-2022 MCV (RBC) [Entitic vol] 93.9 fL 83.5-101 [facility] Monocytes Auto (Bld) [#/Vol] Ordered By: Ladi Bullimore on 10-26-2022 Monocytes (Bld) [#/Vol] 0.4 10*3/uL 0.0-0.8 [facility] Monocytes/100 WBC Auto (Bld) Ordered By: Ladi Villatoroimore on 10-26-2022 Monocytes/100 WBC (Bld) 6.1 % . [facility] Neutrophils Auto (Bld) [#/Vo l]Ordered By: Ladi Bullimore on 10-26-2022 Neutrophils (Bld) [#/Vol] 4.3 10*3/uL 1.8-7.7 [facility] Neutrophils/100 WBC Auto (Bl d)Ordered By: Ladi Bullimore on 10-26-2022 Neutrophils/100 WBC (Bld) 65.0 % . [facility] Nitrite Test strip Ql (U)Ord ered By: Ladi Mina on 10-26-2022 Nitrite Ql (U) Negative Negative [facility] No Panel InformationOrdered By: [facility] on 10-26-2022 Estimated GFR () > 60 mL/Min [facility] Comment on above: GFR estimated refere nce range: According to KDOQI guidelines, <60 ml/min/1.73m2 is sufficient to diagnose a patient with chronic kidney disease. Pharmacy Creatinine Clearance (Chem 76.46 [facility] Phencyclidine Screen Ql (U)O rdered By: Ladi Mina on 10-26-2022 Phencyclidine Ql (U) Negative Negative [facility] Platelet mean volume Auto (B ld) [Entitic vol]Ordered By: Ladi Villatoroimore on 10-26-2022 Platelet mean volume (Bld) [Entitic vol] 8.6 fL 6.6-10.1 [facility] Platelets Auto (Bld) [#/Vol] Ordered By: Ladisujey Villatoroimore on 10-26-2022 Platelets (Bld) [#/Vol] 203 10*3/uL 150-450 [facility] Protein Auto test strip (U) [Mass/Vol]Ordered By: Ladisujey Johnsore on 10-26-2022 Protein (U) [Mass/Vol] Trace mg/dL Negative [facility] Protein [Mass/volume] in Ser um or PlasmaOrdered By: Ladi Bullimore on 10-26-2022 Protein [Mass/Vol] 7.2 g/dL 6.1-7.9 [facility] RBC Auto (Bld) [#/Vol]Ordere d By: Ladi Villatoropatriciamargie on 10-26-2022 RBC (Bld) [#/Vol] 4.72 10*6/uL 3.90-5.60 [facility] Serum or plasma alanine humphrey otransferase measurement without P-5'-P (enzymatic activiOrdered By: Ladi Mina on 10-26-2022 ALT No additional P-5'-P [Catalytic activity/Vol] 20 U/L 10-60 [facility] Serum or plasma albumin/glob ulin mass ratioOrdered By: Ladi Mina on 10-26-2022 Albumin/Globulin [Mass ratio] 1.2 {ratio} [facility] Serum or plasma alkaline suzi sphatase measurement (enzymatic activity/volume)Ordered By: Ladi Mina on 10-26-2022 ALP [Catalytic activity/Vol] 67 U/L 32-92 [facility] Serum or plasma anion gap de terminationOrdered By: Ladi Mina on 10-26-2022 Anion gap [Moles/Vol] 14.8 mmol/L 6.0-15.0 [facility] Serum or plasma aspartate am inotransferase measurement (enzymatic activity/volume)Ordered By: Ladi Mina on 10-26-2022 AST [Catalytic activity/Vol] 20 U/L 10-42 [facility] Serum or plasma calcium travis urement (mass/volume)Ordered By: Ladi Mina on 10-26-2022 Calcium [Mass/Vol] 9.0 mg/dL 8.2-10.2 [facility] Serum or plasma chloride hollie surement (moles/volume)Ordered By: Ladi Mina on 10-26-2022 Chloride [Moles/Vol] 98 mmol/L 95-114 [facility] Serum or plasma ethanol travis urement (mass/volume)Ordered By: Ladi Mina on 10-26-2022 Ethanol [Mass/Vol] mg/dL [facility] Ethanol [Mass/Vol] TNP [facility] Comment on above: Test not performed Serum or plasma glucose travis urement (mass/volume)Ordered By: [facility] on 10-26-2022 Glucose [Mass/Vol] 284 mg/dL 70-100 [facility] Comment on above: ADA recommended refe rence rangeRandom Glucose Reference Range is dependent on time and content of last meal. Glucose of more than 200 mg/dL in a nonstressed, ambulatory subject supports the diagnosis of Diabetes Mellitus. Serum or plasma non-glucuron idated bilirubin measurement (mass/volume)Ordered By: Ladi Mina on 10-26-2022 Bilirubin.indirect [Mass/Vol] 1.0 mg/dL [facility] Serum or plasma potassium me asurement (moles/volume)Ordered By: Ladi [facility] on 10-26-2022 Potassium [Moles/Vol] 4.0 mmol/L 3.5-5.1 [facility] Serum or plasma sodium measu rement (moles/volume)Ordered By: Ladi [facility] on 10-26-2022 Sodium [Moles/Vol] 138 mmol/L 136-146 [facility] Serum or plasma total biliru bin measurement (mass/volume)Ordered By: Ladi Mina 10-26-2022 Bilirubin [Mass/Vol] 1.2 mg/dL 0.3-1.2 [facility] Serum or plasma total carbon dioxide measurement (moles/volume)Ordered By: [facility] 10-26-2022 CO2 [Moles/Vol] 29.2 mmol/L 22.0-30.0 [facility] Serum or plasma urea nitroge n measurement (mass/volume)Ordered By: Ladi Mina on 10-26-2022 Urea nitrogen [Mass/Vol] 19 mg/dL 9-23 [facility] Specific gravity Auto test s trip (U) [Rel density]Ordered By: Ladisujey Mina on 10-26-2022 Specific gravity (U) [Rel density] 1.027 1.001-1.030 [facility] Squamous epithelial cells de tection in urine sediment by light microscopyOrdered By: Ladi Mina 10-26-2022 Epithelial cells.squamous LM Ql (Urine sed) 0-1 [HPF] 0-2 [facility] Urine bacteria detection by automated methodOrdered By: Ladi Mina on 10-26-2022 Bacteria Auto Ql (U) None seen None Seen [facility] Urine clarity by refractomet ry automatedOrdered By: Ladi Mina on 10-26-2022 Clarity Refractometry automated (U) Clear Clear [facility] Urine cocaine detectionOrder ed By: Ladi Mina on 10-26-2022 Cocaine Ql (U) Negative Negative [facility] Urine glucose measurement by automated test strip (mass/volume)Ordered By: Ladi Mina on 10-26-2022 Glucose Auto test strip (U) [Mass/Vol] 500 mg/dL Normal [facility] Urine hemoglobin detection b y automated test stripOrdered By: Ladi Mina on 10-26-2022 Hemoglobin Auto test strip Ql (U) Negative Negative [facility] Urine leukocyte esterase det ection by automated test stripOrdered By: Ladi Mina on 10-26-2022 Leukocyte esterase Auto test strip Ql (U) Negative Negative [facility] Urobilinogen Auto test strip (U) [Mass/Vol]Ordered By: Ladi Mina on 10-26-2022 Urobilinogen (U) [Mass/Vol] Normal mg/dL Normal [facility] pH Auto test strip (U)Ordere d By: Ladi Mina on 10-26-2022 pH (U) 7.0 [pH] 5.0-9.0 [facility] Glucose Glucometer (BldC) [M ass/Vol]Ordered By: Grayson Duvall on 10-13-2022 Glucose [Mass/Vol] 271 mg/dL [facility] Comment on above: Random Glucose Refer ence Range is dependent on time and content of last meal. Glucose of more than 200 mg/dL in a nonstressed, ambulatory subject supports the diagnosis of Diabetes Mellitus. Glucose Poct Glucometerson 1 12-13-2021 Commemt1 Glu2: Cleaned Meter Normal [facility] Comment on above: Result Comment: PERF ORMED BY: [facility] [address] [place] [address] PATHOLOGIST [employer]ATE BUILDER ANIL GUAMAN M.D. Performed By: #### C MP, TSH3, LIPID #### [facility] [address] [place] [address] [place] Glucose [Mass/Vol] 271 mg/dL Normal [facility] Comment on above: Result Comment: [place] Glucose Reference Range is dependent on time and content of last meal. Glucose of more than 200 mg/dL in a nonstressed, ambulatory subject supports the diagnosis of Diabetes Mellitus. Performed By: #### C MP, TSH3, LIPID #### [facility] [address] No Panel InformationOrdered By: Grayson Duvall on 10-13-2022 Bedside Glucose Comment Glu2: cleaned meter [facility] Albumin [Mass/volume] in Ser um or PlasmaOrdered By: Boy Frost on 10-11-2022 Albumin [Mass/Vol] 3.8 g/dL 3.2-5.5 [facility] Basophils Auto (Bld) [#/Vol] Ordered By: Boy Frost on 10-11-2022 Basophils (Bld) [#/Vol] 0.0 10*3/uL 0.0-0.2 [facility] Basophils/100 WBC Auto (Bld) Ordered By: Boy Frost on 10-11-2022 Basophils/100 WBC (Bld) 0.7 % . [facility] COVID CepheidOrdered By: Raymundo Thayer on 10-11-2022 SARS-CoV-2 (COVID-19) Ab IA Ql Negative Negative [facility] Comment on above: This is a duplicate CepDispopid Xpert Xpress CoV-2/Flu/RSV Plus RNA by RT-PCR result to be used for statistical tracking purpose only. SARS-CoV-2 (COVID-19) RNA SILVIA+probe Ql (Unsp spec) [facility] SARS-CoV-2 (COVID-19) RNA SILVIA+probe Ql (Unsp spec) [facility] COVID-19 / Flu A/B / RSV [...] or Cepheid Disclaimer revoked sooner. PERFORMED BY: [facility] [place] [address] PATHOLOGIST [employer]ATE BUILDER ANIL GUAMAN M.D. [facility] Comment on above: Performed By: #### V BG #### Point of Care testing , Cepheid COVID PCR Negativeon 10-11-2022 SARS-CoV-2 (COVID-19) RNA SILVIA+probe Ql (Unsp spec) Negative Normal Negative [facility] Comment on above: Result Comment: This is a duplicate CepDispopid Xpert Xpress CoV-2/Flu/RSV Plus RNA by RT-PCR result to be used for statistical tracking purpose only. PERFORMED BY: [facility] [address] [place] [address] PATHOLOGIST [employer]ATE BUILDER ANIL GUAMAN M.D. Performed By: #### V BG #### Point of Care testing , Complete Blood Count Auto Di ffon 10-11-2022 Basophils (Bld) [#/Vol] 0.0 10*3/uL Normal 0.0-0.2 [facility] Comment on above: Result Comment: PERF ORMED BY: [facility] [address] [place] [address] PATHOLOGIST [employer]ATE BUILDER ANIL GUAMAN M.D. Performed By: #### C MP, TSH3, LIPID #### [address] Basophils/100 WBC (Bld) 0.7 % Normal . [facility] Comment on above: Performed By: #### C MP, TSH3, LIPID #### [address] Eosinophils (Bld) [#/Vol] 0.1 10*3/uL Normal 0.0-0.45 [facility] Comment on above: Performed By: #### C MP, TSH3, LIPID #### [place] [address] [place] Eosinophils/100 WBC (Bld) 0.9 % Normal . [facility] Comment on above: Performed By: #### C MP, TSH3, LIPID #### [address] Erythrocyte distribution width (RBC) [Ratio] 13.0 % Normal 12.0-14.8 [facility] Comment on above: Performed By: #### C MP, TSH3, LIPID #### [address] Hematocrit (Bld) [Volume fraction] 45.6 % Normal 38.8-50.0 [facility] Comment on above: Performed By: #### C MP, TSH3, LIPID #### [address] Hemoglobin (Bld) [Mass/Vol] 15.8 g/dL Normal 13.0-17.0 [facility] Comment on above: Performed By: #### C MP, TSH3, LIPID #### [address] Lymphocytes (Bld) [#/Vol] 1.7 10*3/uL Normal 1.00-4.8 [facility] Comment on above: Performed By: #### C MP, TSH3, LIPID #### [address] Lymphocytes/100 WBC (Bld) 24.7 % Normal . [facility] Comment on above: Performed By: #### C MP, TSH3, LIPID #### [address] MCH (RBC) [Entitic mass] 32.2 pg Normal 27.5-35.2 [facility] Comment on above: Performed By: #### C MP, TSH3, LIPID #### [address] MCV (RBC) [Entitic vol] 93.0 fL Normal 83.5-101 [facility] Comment on above: Performed By: #### C MP, TSH3, LIPID #### [address] Mean Corpuscular HGB Conc 34.7 g/dL Normal 32.5-35.6 [facility] Comment on above: Performed By: #### C MP, TSH3, LIPID #### [address] Monocytes (Bld) [#/Vol] 0.5 10*3/uL Normal 0.0-0.8 [facility] Comment on above: Performed By: #### C MP, TSH3, LIPID #### [facility] [address] [place] [address] [place] Monocytes/100 WBC (Bld) 6.5 % Normal . [facility] Comment on above: Performed By: #### C MP, TSH3, LIPID #### [facility] [address] [place] [address] [place] Neutrophils (Bld) [#/Vol] 4.7 10*3/uL Normal 1.8-7.7 [facility] Comment on above: Performed By: #### C MP, TSH3, LIPID #### [facility] [address] [place] [address] [place] Neutrophils/100 WBC (Bld) 67.2 % Normal . [facility] Comment on above: Performed By: #### C MP, TSH3, LIPID #### [facility] [address] [place] [address] [place] Nucleated RBC/100 WBC (Bld) [Ratio] 0.0 % Normal 0-0.5 [facility] Comment on above: Performed By: #### C MP, TSH3, LIPID #### [facility] [address] [place] [address] [place] Platelet mean volume (Bld) [Entitic vol] 8.7 fL Normal 6.6-10.1 [facility] Comment on above: Performed By: #### C MP, TSH3, LIPID #### [facility] [address] [place] [address] [place] Platelets (Bld) [#/Vol] 209 10*3/uL Normal 150-450 [facility] Comment on above: Performed By: #### C MP, TSH3, LIPID #### [facility] [address] [place] [address] [place] RBC (Bld) [#/Vol] 4.90 10*6/uL Normal 3.90-5.60 [facility] Comment on above: Performed By: #### C MP, TSH3, LIPID #### [facility] [address] [place] [address] [place] WBC (Bld) [#/Vol] 7.0 10*3/uL Normal 4.5-11.0 [facility] Comment on above: Performed By: #### C MP, TSH3, LIPID #### [facility] [address] [place] [address] Comprehensive Metabolic Pane rudolph 10-11-2022 Albumin [Mass/Vol] 3.8 g/dL Normal 3.2-5.5 [facility] Comment on above: Performed By: #### C MP, TSH3, LIPID #### [address] Albumin/Globulin [Mass ratio] 1.1 {ratio} Normal [facility] Comment on above: Performed By: #### C MP, TSH3, LIPID #### [address] ALP [Catalytic activity/Vol] 69 U/L Normal 32-92 [facility] Comment on above: Performed By: #### C MP, TSH3, LIPID #### [address] ALT [Catalytic activity/Vol] 23 U/L Normal 10-60 [facility] Comment on above: Performed By: #### C MP, TSH3, LIPID #### [address] Anion gap [Moles/Vol] 10.6 mmol/L Normal 6.0-15.0 [facility] Comment on above: Performed By: #### C MP, TSH3, LIPID #### [facility] [address] [place] [address] AST [Catalytic activity/Vol] 20 U/L Normal 10-42 [facility] Comment on above: Performed By: #### C MP, TSH3, LIPID #### [address] Bilirubin [Mass/Vol] 1.0 mg/dL Normal 0.3-1.2 [facility] Comment on above: Performed By: #### C MP, TSH3, LIPID #### [facility] [address] [place] [address] [place] Calcium [Mass/Vol] 9.5 mg/dL Normal 8.2-10.2 [facility] Comment on above: Performed By: #### C MP, TSH3, LIPID #### [facility] [address] Chloride [Moles/Vol] 102 mmol/L Normal 95-114 [facility] Comment on above: Performed By: #### C MP, TSH3, LIPID #### [facility] [address] CO2 [Moles/Vol] 27.5 mmol/L Normal 22.0-30.0 [facility] Comment on above: Performed By: #### C MP, TSH3, LIPID #### [facility] [address] Creatinine [Mass/Vol] 0.94 mg/dL Normal 0.64-1.27 [facility] Comment on above: Performed By: #### C MP, TSH3, LIPID #### [facility] [address] [place] [address] [place] Creatinine Clr Calc Pharmacy 96.80 [facility] Comment on above: Performed By: #### C MP, TSH3, LIPID #### [facility] [address] Estimated GFR ( Akua > 60 [facility] Comment on above: Result Comment: GFR estimated reference range: According to KDOQI guidelines, <60 ml/min/1.73m2 is sufficient to diagnose a patient with chronic kidney disease. Performed By: #### C MP, TSH3, LIPID #### [facility] [address] [place] [address] [place] Estimated GFR (Non- Am > 60 [facility] Comment on above: Performed By: #### C MP, TSH3, LIPID #### [facility] [address] [place] [address] [place] Globulin (S) [Mass/Vol] 3.5 g/dL [facility] Comment on above: Performed By: #### C MP, TSH3, LIPID #### [facility] [address] [place] [address] [place] Glucose [Mass/Vol] 283 mg/dL High 70-100 [facility] Comment on above: Result Comment: [facility] Glucose Reference Range is dependent on time and content of last meal. Glucose of more than 200 mg/dL in a nonstressed, ambulatory subject supports the diagnosis of Diabetes Mellitus. ADA recommended reference range Performed By: #### C MP, TSH3, LIPID #### [facility] [address] Potassium [Moles/Vol] 4.1 mmol/L Normal 3.5-5.1 [facility] Comment on above: Performed By: #### C MP TSH3, LIPID #### [facility] [address] Protein [Mass/Vol] 7.3 g/dL Normal 6.1-7.9 [facility] Comment on above: Performed By: #### C MP, TSH3, LIPID #### [address] Sodium [Moles/Vol] 136 mmol/L Normal 136-146 [facility] Comment on above: Performed By: #### C MP, TSH3, LIPID #### [facility] [address] [place] [address] [place] Urea nitrogen [Mass/Vol] 27 mg/dL High 9-23 [facility] Comment on above: Performed By: #### C MP, TSH3, LIPID #### [facility] [address] [place] [address] [place] Creatinine and Glomerular fi ltration rate.predicted panel (S/P/Bld)Ordered By: Boy Frost on 10-11-2022 Creatinine [Mass/Vol] 0.94 mg/dL 0.64-1.27 [facility] Eosinophils Auto (Bld) [#/Vo l]Ordered By: Boy Frost on 10-11-2022 Eosinophils (Bld) [#/Vol] 0.1 10*3/uL 0.0-0.45 [facility] Eosinophils/100 WBC Auto (Bl d)Ordered By: Boy Frost on 10-11-2022 Eosinophils/100 WBC (Bld) 0.9 % . [facility] Erythrocyte distribution wid th Auto (RBC) [Ratio]Ordered By: Boy Frost on 10-11-2022 Erythrocyte distribution width (RBC) [Ratio] 13.0 % 12.0-14.8 [facility] Estimated glomerular filtrat ion rate (GFR) non- AmericanOrdered By: Boy Frost on 10-11-2022 GFR/1.73 sq M.predicted among non-blacks MDRD (S/P/Bld) [Vol rate/Area] > 60 mL/Min [facility] Globulin Calc (S) [Mass/Vol] Ordered By: Boy Frost on 10-11-2022 Globulin (S) [Mass/Vol] 3.5 g/dL [facility] Hematocrit Auto (Bld) [Volum e fraction]Ordered By: Boy Frost on 10-11-2022 Hematocrit (Bld) [Volume fraction] 45.6 % 38.8-50.0 [facility] Hemoglobin [Mass/volume] in BloodOrdered By: Boy Frost on 10-11-2022 Hemoglobin (Bld) [Mass/Vol] 15.8 g/dL 13.0-17.0 [facility] Laboratory - Chemistry and C hemistry - challengeOrdered By: Boy Frost on 10-11-2022 Lipase [Catalytic activity/Vol] 46.0 U/L 22- [facility] Laboratory - Hematology and Cell countsOrdered By: Boy Frost on 10-11-2022 Nucleated RBC/100 WBC (Bld) [Ratio] 0.0 % 0-0.5 [facility] Leukocytes [#/volume] in Blo od by Automated countOrdered By: Boy Frost on 10-11-2022 WBC (Bld) [#/Vol] 7.0 10*3/uL 4.5-11.0 [facility] Lipaseon 10-11-2022 Lipase [Catalytic activity/Vol] 46.0 U/L Normal 22-51 [facility] Comment on above: Result Comment: PERF ORMED BY: [place] [address] PATHOLOGIST [employer]ATE BUILDER ANIL GUAMAN M.D. Performed By: #### C MP, TSH3, LIPID #### [address] Lymphocytes Auto (Bld) [#/Vo l]Ordered By: Boy Frost on 10-11-2022 Lymphocytes (Bld) [#/Vol] 1.7 10*3/uL 1.00-4.8 [facility] Lymphocytes/100 WBC Auto (Bl d)Ordered By: Boy Frost on 10-11-2022 Lymphocytes/100 WBC (Bld) 24.7 % . [facility] MCH Auto (RBC) [Entitic mass ]Ordered By: Boy Frost on 10-11-2022 MCH (RBC) [Entitic mass] 32.2 pg 27.5-35.2 [facility] MCHC Auto (RBC) [Mass/Vol]Or dered By: Boy Frost on 10-11-2022 MCHC (RBC) [Mass/Vol] 34.7 g/dL 32.5-35.6 [facility] MCV Auto (RBC) [Entitic vol] Ordered By: Boy Frost on 10-11-2022 MCV (RBC) [Entitic vol] 93.0 fL 83.5-101 [facility] Monocytes Auto (Bld) [#/Vol] Ordered By: Boy Frost on 10-11-2022 Monocytes (Bld) [#/Vol] 0.5 10*3/uL 0.0-0.8 [facility] Monocytes/100 WBC Auto (Bld) Ordered By: Boy Frost on 10-11-2022 Monocytes/100 WBC (Bld) 6.5 % . [facility] Neutrophils Auto (Bld) [#/Vo l]Ordered By: Boy Frost on 10-11-2022 Neutrophils (Bld) [#/Vol] 4.7 10*3/uL 1.8-7.7 [facility] Neutrophils/100 WBC Auto (Bl d)Ordered By: Boy Frost on 10-11-2022 Neutrophils/100 WBC (Bld) 67.2 % . [facility] No Panel InformationOrdered By: Boy Frost on 10-11-2022 Estimated GFR () > 60 mL/Min [facility] Comment on above: GFR estimated refere nce range: According to KDOQI guidelines, <60 ml/min/1.73m2 is sufficient to diagnose a patient with chronic kidney disease. Pharmacy Creatinine Clearance (Chem 96.80 [facility] Platelet mean volume Auto (B ld) [Entitic vol]Ordered By: Boy Frost on 10-11-2022 Platelet mean volume (Bld) [Entitic vol] 8.7 fL 6.6-10.1 [facility] Platelets Auto (Bld) [#/Vol] Ordered By: Boy Frost on 10-11-2022 Platelets (Bld) [#/Vol] 209 10*3/uL 150-450 [facility] Protein [Mass/volume] in Ser um or PlasmaOrdered By: Boy Frost on 10-11-2022 Protein [Mass/Vol] 7.3 g/dL 6.1-7.9 [facility] RBC Auto (Bld) [#/Vol]Ordere d By: Boy Frost on 10-11-2022 RBC (Bld) [#/Vol] 4.90 10*6/uL 3.90-5.60 [facility] Serum or plasma alanine humphrey otransferase measurement without P-5'-P (enzymatic activiOrdered By: Boy Frost on 10-11-2022 ALT No additional P-5'-P [Catalytic activity/Vol] 23 U/L 10-60 [facility] Serum or plasma albumin/glob ulin mass ratioOrdered By: Boy Frost on 10-11-2022 Albumin/Globulin [Mass ratio] 1.1 {ratio} [facility] Serum or plasma alkaline suzi sphatase measurement (enzymatic activity/volume)Ordered By: Boy Frost on 10-11-2022 ALP [Catalytic activity/Vol] 69 U/L 32-92 [facility] Serum or plasma anion gap de terminationOrdered By: Boy Frost on 10-11-2022 Anion gap [Moles/Vol] 10.6 mmol/L 6.0-15.0 [facility] Serum or plasma aspartate am inotransferase measurement (enzymatic activity/volume)Ordered By: Boy Frost on 10-11-2022 AST [Catalytic activity/Vol] 20 U/L 10-42 [facility] Serum or plasma calcium travis urement (mass/volume)Ordered By: Boy Frost on 10-11-2022 Calcium [Mass/Vol] 9.5 mg/dL 8.2-10.2 [facility] Serum or plasma chloride hollie surement (moles/volume)Ordered By: Boy Frost on 10-11-2022 Chloride [Moles/Vol] 102 mmol/L 95-114 [facility] Serum or plasma glucose travis urement (mass/volume)Ordered By: Boy Frost on 10-11-2022 Glucose [Mass/Vol] 283 mg/dL 70-100 [facility] Comment on above: ADA recommended refe rence rangeRandom Glucose Reference Range is dependent on time and content of last meal. Glucose of more than 200 mg/dL in a nonstressed, ambulatory subject supports the diagnosis of Diabetes Mellitus. Serum or plasma potassium me asurement (moles/volume)Ordered By: Boy Frost on 10-11-2022 Potassium [Moles/Vol] 4.1 mmol/L 3.5-5.1 [facility] Serum or plasma sodium measu rement (moles/volume)Ordered By: Boy Frost on 10-11-2022 Sodium [Moles/Vol] 136 mmol/L 136-146 [facility] Serum or plasma total biliru bin measurement (mass/volume)Ordered By: Boy Frost on 10-11-2022 Bilirubin [Mass/Vol] 1.0 mg/dL 0.3-1.2 [facility] Serum or plasma total carbon dioxide measurement (moles/volume)Ordered By: Boy Frost on 10-11-2022 CO2 [Moles/Vol] 27.5 mmol/L 22.0-30.0 [facility] Serum or plasma urea nitroge n measurement (mass/volume)Ordered By: Boy Frost on 10-11-2022 Urea nitrogen [Mass/Vol] 27 mg/dL 9-23 [facility] XR acute abdomen serieson XR acute abdomen series [facility] [place] [address] [place] [address] XRay Report Signed 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 MR#: [id number] : 1970 Acct:[id number] Age/Sex: 52 / M ADM Date: 10/11/22 Loc: ER Room: Type: [facility] ER Attending Dr: Copies to: Vimal Thayer [...] Tae Seals M.D.10/11/2022 1:45 PM Dictation Location: [place] [address] Transcribed By: [facility] 10/11/22 1345 Dictated By: Tae Seals II, MD 10/11/22 1349 Signed By: 10/11/22 134 Normal [facility] CT ABDOMEN/PELVIS WITH CONTR Kellie 06-07-2019 Impression: 1. No ac leon CT abnormalities 2. Circumferential esophageal wall thickening; esophagitis vs neoplasm; recommend followup upper gi esophogram vs direct visualization. 3. Gastric fundal wall thickening; gastritis vs neoplasm as well and can be further evaluated with above mentioned upper GI. Electronically Signed By: Nadeem Mercado M.D. on Jun 07 2019 1:39:[id number] ehealthtracker User, Interfaces - 06/07/2019 1:41 AM EDT Patient Name: JUSTICE ARANDA Patient NRM: [id number] Patient : 1970 Examination:CT ABDOMEN/PELVIS WITH CONTRAST [...] Mercado M.D. on Jun 07 2019 1:39:[id number] ehealthtracker Patient Name: JUSTICE ARANDA Patient NRM: [id number] Patient : 1970 Examination:CT ABDOMEN/PELVIS WITH CONTRAST [...] fracture or dislocation. Superficial soft Tissues: Normal. ehealthtracker PROTIME-INRon 06-07-2019 INR Coag (PPP) [Relative time] 1.1 {INR} ehealthtracker Comment on above: INR: ------INDICATION INR Ref Range DVT, PE, AF, AMI, tissue heart valve 2.0 - 3.0 Mechanical prosthetic valves 2.5 - 3.5 PT Coag (PPP) [Time] 12.9 s ehealthtracker XR ABDOMEN 1 VIEWon 06-07-20 19 User, Interfaces - 06/07/2019 12:40 AM EDT Patient Name: JUSTICE ARANDA Patient NRM: [id number] Patient : 1970 Examination:XR ABDOMEN 1 VIEW [...] Martínez MD on Jun 07 2019 12:40:30:390AM ehealthtracker Impression: Nonspeci fic, nonobstructive bowel gas pattern with mild colonic stool burden. Electronically Signed By: Luis Carlos Martínez MD on Jun 07 2019 12:40:30:390AM ehealthtracker Patient Name: JUSTICE ARANDA Patient NRM: [id number] Patient : 1970 Examination:XR ABDOMEN 1 VIEW [...] soft tissue calcifications. No acute bony abnormalities. ehealthtracker AMYLASEon 06-06-2019 Amylase [Catalytic activity/Vol] 179 U/L High 25 - 125 U/L ehealthtracker CBC, EDIF, PLATELETon 2018 Basophils/100 WBC (Bld) 0.6 % 0 - 3 % [facility] Eosinophils/100 WBC (Bld) 0.4 % 0 - 4 % [facility] Erythrocyte distribution width (RBC) [Ratio] 12.9 % 11.5 - 14.5 % [facility] Hematocrit (Bld) [Volume fraction] 37.8 % Low 42 - 52 % [facility]alt[facility] Hemoglobin (Bld) [Mass/Vol] 13.5 g/dL Low 14 - 18 g/dL [facility] Lymphocytes/100 WBC (Bld) 27.2 % 20.5 - 51.1 % ehealthtracker MCH (RBC) [Entitic mass] 33.6 pg High 28 - 32 pg ehealthtracker MCHC (RBC) [Mass/Vol] 35.6 g/dL 33 - 3 7 g/dL ehealthtracker MCV (RBC) [Entitic vol] 94.5 fL High 80 - 94 fL [facility] Monocytes/100 WBC (Bld) 7.8 % 0 - 13 % [facility] Neutrophils/100 WBC (Bld) 64.0 % 42.2 - 75.2 % [facility] Platelets (Bld) [#/Vol] 150 10*3/uL [facility] RBC (Bld) [#/Vol] 4.00 10*6/uL Low [facility] SCAN SLIDE NO NO [facility] WBC (Bld) [#/Vol] 6.3 10*3/uL [facility] COMPREHENSIVE METABOLIC PROF BABS [place] 06-06-2019 Albumin BCG dye [Mass/Vol] 3.9 g/dL 3.5 - 5 g/dL [facility] Albumin/Globulin [Mass ratio] 1.3 {ratio} [facility] ALP [Catalytic activity/Vol] 49 U/L 38 - 126 U/L [facility] ALT No additional P-5'-P [Catalytic activity/Vol] 27 U/L 10 - 40 U/L [facility] Anion gap [Moles/Vol] 13.1 mmol/L [facility] AST [Catalytic activity/Vol] 24 U/L 10 - 42 U/L [facility] Bilirubin [Mass/Vol] 1.0 mg/dL 0.3 - 1 .2 mg/dL [facility] Calcium [Mass/Vol] 8.9 mg/dL 8.4 - 10. 2 mg/dL [facility] Chloride [Moles/Vol] 101 mmol/L [facility] CO2 [Moles/Vol] 27 mmol/L [facility] Creatinine [Mass/Vol] 1.0 mg/dL 0.4 - 1.1 mg/dL [facility] GFR/1.73 sq M.predicted MDRD (S/P/Bld) [Vol rate/Area] mL/min/{1.73_m2} [facility] Comment on above: Estimated Glomerular filtration Rate Reference Ranges: GFR, mL/min/1.73m2 >= 60 Adequate 30 - 59 Moderately decreased GFR 15 - 29 Severely decreased GFR <18 Kidney failure (or dialysis) GFR calculated using abbreviated MDRD formula. MDRD equation not suitable for patients who are under 18, have unstable creatinine concentrations Globulin (S) [Mass/Vol] 3.1 g/dL 2.9 - 3.3 g/dL [facility] Glucose [Mass/Vol] 253 mg/dL High 70 - 126 mg/dL [facility] Potassium [Moles/Vol] 4.1 mmol/L [facility] Protein [Mass/Vol] 7.0 g/dL 6.4 - 8.3 g/dL [facility] Sodium [Moles/Vol] 137 mmol/L [facility] Urea nitrogen [Mass/Vol] 33 mg/dL High 7 - 22 mg/dL [facility] LACTATE, BLOODon 06-06-2019 Lactate [Moles/Vol] 2.2 mmol/L 0.5 - 2. 2 mmol/L [facility] LIPASEon 06-06-2019 Lipase [Catalytic activity/Vol] 252 U/L High 22 - 51 U/L [facility] Otheron 06-06-2019 Interpretation and review of laboratory results Abnormal [facility] Interpretation and review of laboratory results Abnormal [facility] POCT GLUCOSEon 06-06-2019 Glucose [Mass/Vol] 220 mg/dL High 70 - 126 mg/dL [facility] Interpretation and review of laboratory results Abnormal [facility] U/A WITH MICROSCOPICon 06-06 Bacteria LM Ql (Urine sed) NONE SEEN NONE SEEN [facility] C & S INDICATED NO NO [facility] Casts LM.LPF (Urine sed) [#/Area] NONE SEEN NONE SEEN /lpf [facility] Epithelial cells.squamous LM.HPF (Urine sed) [#/Area] NONE SEEN NONE SEEN /hpf [facility] Mucus Ql (Urine sed) NONE SEEN NONE SEEN [facility] RBC LM.HPF (Urine sed) [#/Area] NONE SEEN NONE SEEN /hpf [facility] Unidentified crystals LM Ql (Urine sed) NONE SEEN NONE SEEN [facility] WBC LM.HPF (Urine sed) [#/Area] NONE SEEN [facility] URINALYSIS WITH REFLEX CULTU REon 06-06-2019 Appearance (U) CLEAR CLEAR [facility] BILIRUBIN, URINE DIPSTICK Negative NEGATIVE [facility] BLOOD, URINE DIPSTICK Negative NEGATIVE [facility] Color (U) YELLOW YELLOW [facility] GLUCOSE, URINE DIPSTICK 100 mg/dL NEGATIVE [facility] KETONES, URINE DIPSTICK Negative NEGATIVE mg/dL [facility] LEUKOCYTE ESTERASE, URINE DIPSTK Negative NEGATIVE [facility] Microscopic observation LM Nom (Urine sed) YES NO [place] [employer] Nitrate Ql (U) Negative NEGATIVE [facility] PH, URINE DIPSTICK 5.5 [facility] [employer] [facility] Protein (U) [Mass/Vol] TRACE NEGAT DOMONIQUE mg/dL [facility] SPECIFIC GRAVITY, URINE DIPSTICK 1.025 [facility] UROBILINOGEN, URINE DIPSTICK 0.2 [facility] XR CHEST AP PORTABLEon 06-06 Impression: Normal e xam. Electronically Signed By: Nadeem Mercado M.D. on Jun 06 2019 11:49:26:900PM [facility] [employer] Patient Name: JUSTICE ARANDA Patient NRM: [id number] Patient : 1970 Examination:XR CHEST AP PORTABLE [...] consolidation, effusion or pnuemothorax. Osseous structures normal. [facility] User, Interfaces - 06/06/2019 11:49 PM EDT Patient Name: JUSTICE ARANDA Patient NRM: [id number] Patient : 1970 Examination:XR CHEST AP PORTABLE [...] Mercado M.D. on Jun 06 2019 11:49:26:900PM [facility]racker Otheron 06-01-2019 Patient Name: JUSTICE ARANDA Patient NRM: [id number] Patient : 1970 Examination:XR ELBOW RIGHT 3+ [...] Mckeon MD. on Jun 01 2019 3:53:18:820PM [facility]acker User, Interfaces - 06/01/2019 3:53 PM EDT Patient Name: JUSTICE ARANDA Patient NRM: [id number] Patient : 1970 Examination:XR ELBOW RIGHT 3+ [...] Mckeon MD. on Jun 01 2019 3:53:18:820PM [facility] ACETAMINOPHEN LEVELon 2018 Acetaminophen [Mass/Vol] <10 10 - 30 ug/mL [facility]alt[facility]racker ALCOHOL (ETHANOL),BLOODon Ethanol [Mass/Vol] 243 mg/dL High 0 - 10 mg/dL [facility] Comment on above: ETOH: % = MG/DL DIVIDED BY 1000 Interpretation and review of laboratory results Abnormal ehealthtracker CBC, EDIF, PLATELETon 2018 Basophils/100 WBC (Bld) 1.0 % 0 - 3 % [facility] Eosinophils/100 WBC (Bld) 0.7 % 0 - 4 % [facility] Erythrocyte distribution width (RBC) [Ratio] 12.4 % 11.5 - 14.5 % [facility] Hematocrit (Bld) [Volume fraction] 38.9 % Low 42 - 52 % [facility] Hemoglobin (Bld) [Mass/Vol] 13.9 g/dL Low 14 - 18 g/dL [facility]racker Interpretation and review of laboratory results Abnormal [facility]racker Lymphocytes/100 WBC (Bld) 26.5 % 20.5 - 51.1 % [facility] MCH (RBC) [Entitic mass] 33.1 pg High 28 - 32 pg [facility] MCHC (RBC) [Mass/Vol] 35.7 g/dL 33 - 3 7 g/dL [facility] MCV (RBC) [Entitic vol] 92.6 fL 80 - 94 fL [facility] Monocytes/100 WBC (Bld) 5.4 % 0 - 13 % [facility] Neutrophils/100 WBC (Bld) 66.4 % 42.2 - 75.2 % [facility] Platelets (Bld) [#/Vol] 144 10*3/uL [facility] RBC (Bld) [#/Vol] 4.20 10*6/uL Low [facility] SCAN SLIDE NO NO [facility] WBC (Bld) [#/Vol] 5.4 10*3/uL [facility] COMPREHENSIVE METABOLIC PROF [facility] 05-31-2019 Albumin BCG dye [Mass/Vol] 3.8 g/dL 3.5 - 5 g/dL [facility] Albumin/Globulin [Mass ratio] 1.1 {ratio} Low [facility] ALP [Catalytic activity/Vol] 55 U/L 38 - 126 U/L [facility] ALT No additional P-5'-P [Catalytic activity/Vol] 25 U/L 10 - 40 U/L [facility] Anion gap [Moles/Vol] 14.5 mmol/L [facility] AST [Catalytic activity/Vol] 22 U/L 10 - 42 U/L [employer] Bilirubin [Mass/Vol] 0.9 mg/dL 0.3 - 1 .2 mg/dL [facility] Calcium [Mass/Vol] 8.3 mg/dL Low 8.4 - 10. 2 mg/dL [employer] [employer] Chloride [Moles/Vol] 100 mmol/L [facility] CO2 [Moles/Vol] 22 mmol/L [employer] Creatinine [Mass/Vol] 0.8 mg/dL 0.4 - 1.1 mg/dL [facility] GFR/1.73 sq M.predicted MDRD (S/P/Bld) [Vol rate/Area] mL/min/{1.73_m2} [facility] Comment on above: Estimated Glomerular filtration Rate Reference Ranges: GFR, mL/min/1.73m2 >= 60 Adequate 30 - 59 Moderately decreased GFR 15 - 29 Severely decreased GFR <18 Kidney failure (or dialysis) GFR calculated using abbreviated MDRD formula. MDRD equation not suitable for patients who are under 18, have unstable creatinine concentrations Globulin (S) [Mass/Vol] 3.4 g/dL High 2.9 - 3.3 g/dL [facility] Glucose [Mass/Vol] 208 mg/dL High 70 - 126 mg/dL [facility]racker Potassium [Moles/Vol] 3.5 mmol/L [facility] [employer] Protein [Mass/Vol] 7.2 g/dL 6.4 - 8.3 g/dL [facility]racker Sodium [Moles/Vol] 133 mmol/L Low [place] [employer] Urea nitrogen [Mass/Vol] 13 mg/dL 7 - 22 mg/dL [facility] [employer] DRUGS OF ABUSE PROFILE, URIN [facility] 05-31-2019 Acetaminophen+Phenacet in Screen Ql (U) Negative NEG [facility] [employer] Amphetamine cutoff Screen (U) [Mass/Vol] Negative NEG [facility] [employer] Barbiturate Negative NEG [facility] [employer] Benzodiazepines Ql (U) Negative NEG [facility] Cannabinoids Screen Ql (U) Negative NEG [facility] [employer] Cocaine Metabolite Negative NEG [facility] [employer] [facility] Methadone Confirm (Hu) [Mass/Vol] Negative NEG [facility] [employer] Methamphetamine Confirm (Hu) [Mass/Vol] Negative NEG [facility] [employer] Opiates Ql (U) Negative NEG [facility] [employer] Phencyclidine Ql (U) Negative NEG [facility] [employer] TRICYCLIC ANTIDEPRESSANTS, URINE Negative NEG [facility] [employer] Comment on above: APAP- CUT-OFF CONCEN TRATION [...] 1.7 mg/dL 1.7 - 2 .8 mg/dL [facility]alt[facility]racker Otheron 05-31-2019 Interpretation and review of laboratory results Abnormal [facility]racker SALICYLATE LEVELon 9 Salicylates [Mass/Vol] mg/dL Low 10 - 30 mg/dL [facility] TSHon 05-31-2019 TSH Qn 2.466 m[IU]/L [facility] URINALYSIS W/ MICRO W/ REFLE X C AND Son 05-31-2019 Appearance (U) CLEAR CLEAR [employer] [facility] Bacteria LM Ql (Urine sed) NONE SEEN NONE SEEN [employer] [facility] BILIRUBIN, URINE DIPSTICK Negative NEGATIVE [facility]healt[facility]racker BLOOD, URINE DIPSTICK Negative NEGATIVE [facility]racker C & S INDICATED NO NO [employer] [facility] Casts LM.LPF (Urine sed) [#/Area] PRESENT NONE SEEN /lpf ehealthtracker Color (U) YELLOW YELLOW ehealthtracker Epithelial cells.squamous LM.HPF (Urine sed) [#/Area] NONE SEEN NONE SEEN /hpf [employer] [facility] Fine Granular Casts LM.LPF (Urine sed) [#/Area] 0-2 NONE SEEN /lpf [employer] [facility] GLUCOSE, URINE DIPSTICK Negative NEGATIVE mg/dL [employer] [facility] Hyaline casts (Urine sed) [#/Area] 0-2 [employer] [facility] KETONES, URINE DIPSTICK TRACE NEGATIVE mg/dL [employer] [facility] LEUKOCYTE ESTERASE, URINE DIPSTK Negative NEGATIVE [employer] [facility] Mucus Ql (Urine sed) 1+ THREADS NONE SEEN [employer] [facility] Nitrate Ql (U) Negative NEGATIVE [employer] [facility] PH, URINE DIPSTICK 5.5 [facility] [facility] Protein (U) [Mass/Vol] 30 mg/dL NEGATIVE [facility] RBC LM.HPF (Urine sed) [#/Area] 0-2 NONE SEEN /hpf [employer] [facility] SPECIFIC GRAVITY, URINE DIPSTICK 1.010 [employer] [facility] Unidentified crystals LM Ql (Urine sed) NONE SEEN NONE SEEN [facility]racker UROBILINOGEN, URINE DIPSTICK 0.2 [facility] WBC LM.HPF (Urine sed) [#/Area] 0-2 [facility]racker XR SHOULDER RIGHT MIN 2 VIEW Son 05-31-2019 User, Interfaces - 05/31/2019 10:35 PM EDT Patient Name: JUSTICE ARANDA Patient NRM: [id number] Patient : 1970 Examination:XR SHOULDER RIGHT MIN [...] Guaman MD. on May 31 2019 10:35:11:040PM ehealthtracker Patient Name: JUSTICE ARANDA Patient NRM: [id number] Patient : 1970 Examination:XR SHOULDER RIGHT MIN [...] are intact. There is normal bone mineralization. ehealthtracker IMPRESSION: No fract ure or misalignment is seen. If symptoms persist, CT and/or MRI may provide further evaluation. Electronically Signed By: Shane Guaman MD. on May 31 2019 10:35:11:040PM ehealthtracker ACETONE, SERUM, KETONESon KETONES,SERUM Negative NEGATIVE ehealthtracker CBC, EDIF, PLATELETon 2018 Basophils/100 WBC (Bld) 1.1 % 0 - 3 % [facility]racker Eosinophils/100 WBC (Bld) 2.1 % 0 - 4 % [facility]healt[facility]racker Erythrocyte distribution width (RBC) [Ratio] 12.8 % 11.5 - 14.5 % [facility]healthtracker Hematocrit (Bld) [Volume fraction] 40.0 % Low 42 - 52 % [facility]alt[facility]racker Hemoglobin (Bld) [Mass/Vol] 14.3 g/dL 14 - 18 g/dL [facility] Lymphocytes/100 WBC (Bld) 33.1 % 20.5 - 51.1 % [employer] MCH (RBC) [Entitic mass] 33.2 pg High 28 - 32 pg [facility] MCHC (RBC) [Mass/Vol] 35.7 g/dL 33 - 3 7 g/dL [facility] MCV (RBC) [Entitic vol] 92.9 fL 80 - 94 fL [employer] Monocytes/100 WBC (Bld) 7.2 % 0 - 13 % [facility] Neutrophils/100 WBC (Bld) 56.5 % 42.2 - 75.2 % [facility] Platelets (Bld) [#/Vol] 147 10*3/uL [facility] RBC (Bld) [#/Vol] 4.31 10*6/uL Low [facility] SCAN SLIDE NO NO [facility] WBC (Bld) [#/Vol] 4.6 10*3/uL Low [facility] CKon 05-26-2019 CK [Catalytic activity/Vol] 125 U/L 38 - 174 U/L [facility] COMPREHENSIVE METABOLIC PANE Rud[facility] 05-26-2019 Albumin BCG dye [Mass/Vol] 3.7 g/dL 3.5 - 5 g/dL [facility] Albumin/Globulin [Mass ratio] 1.1 {ratio} Low [facility] ALP [Catalytic activity/Vol] 53 U/L 38 - 126 U/L [facility] ALT No additional P-5'-P [Catalytic activity/Vol] 19 U/L 10 - 40 U/L [facility] AST [Catalytic activity/Vol] 21 U/L 10 - 42 U/L [facility] Bilirubin [Mass/Vol] 1.1 mg/dL 0.3 - 1 .2 mg/dL [employer] Calcium [Mass/Vol] 8.7 mg/dL 8.4 - 10. 2 mg/dL [employer] Chloride [Moles/Vol] 106 mmol/L [facility] CO2 [Moles/Vol] 25 mmol/L [facility] Creatinine [Mass/Vol] 0.8 mg/dL 0.4 - 1.1 mg/dL [facility] GFR/1.73 sq M.predicted MDRD (S/P/Bld) [Vol rate/Area] mL/min/{1.73_m2} [facility]racker Comment on above: Estimated Glomerular filtration Rate Reference Ranges: GFR, mL/min/1.73m2 >= 60 Adequate 30 - 59 Moderately decreased GFR 15 - 29 Severely decreased GFR <18 Kidney failure (or dialysis) GFR calculated using abbreviated MDRD formula. MDRD equation not suitable for patients who are under 18, have unstable creatinine concentrations Globulin (S) [Mass/Vol] 3.3 g/dL 2.9 - 3.3 g/dL [facility] [employer] Glucose [Mass/Vol] 168 mg/dL High 70 - 126 mg/dL [facility] [employer] Potassium [Moles/Vol] 4.1 mmol/L [facility] [employer] Protein [Mass/Vol] 7.0 g/dL 6.4 - 8.3 g/dL [facility]racker Sodium [Moles/Vol] 138 mmol/L [facility] [employer] [facility] Urea nitrogen [Mass/Vol] 14 mg/dL 7 - 22 mg/dL [facility] [employer] DRUGS OF ABUSE PROFILE, URIN [facility] 05-26-2019 Acetaminophen+Phenacet in Screen Ql (U) Negative NEG [place] [employer] Amphetamine cutoff Screen (U) [Mass/Vol] Negative NEG [facility] [employer] Barbiturate Negative NEG [place] [employer] Benzodiazepines Ql (U) Negative NEG [facility] [employer] Cannabinoids Screen Ql (U) Negative NEG [facility] [employer] Cocaine Metabolite Negative NEG [facility] [facility] Methadone Confirm (Hu) [Mass/Vol] Negative NEG [facility] [employer] Methamphetamine Confirm (Hu) [Mass/Vol] Negative NEG [facility] [employer] Opiates Ql (U) Negative NEG [place] [employer] Phencyclidine Ql (U) Negative NEG [facility] [employer] TRICYCLIC ANTIDEPRESSANTS, URINE Negative NEG [facility]racker Comment on above: APAP- CUT-OFF CONCEN TRATION [...] Monge MD Authorized by: Leilani Monge MD [place] Protocol Immediately prior to procedure a time out was called to verify the correct patient, procedure, equipment, intelligence support officer and site/side marked as required. Additional Notes EKG sinus bradycardia with ventricular rate of 56 bpm, DC interval 186 ms, QRS duration 82 ms, QT/QTc 430/414 ms. Inferior lead changes. ehealthtracker MAGNESIUMon 05-26-2019 Magnesium [Mass/Vol] 1.6 mg/dL Low 1.7 - 2 .8 mg/dL [facility]healthtracker Otheron 05-26-2019 Interpretation and review of laboratory results Abnormal ehealthtracker PH VENOUSon 05-26-2019 pH (BldV) 7.360 [pH] ehealthtracker PROTIME-INRon 05-26-2019 INR Coag (PPP) [Relative time] 1.0 {INR} ehealthtracker Comment on above: INR: ------INDICATION INR Ref Range DVT, PE, AF, AMI, tissue heart valve 2.0 - 3.0 Mechanical prosthetic valves 2.5 - 3.5 PT Coag (PPP) [Time] 11.7 s ehealthtracker TROPONINon 05-26-2019 Troponin I.cardiac [Mass/Vol] ng/mL 0 - 0.06 ng/mL ehealthtracker Comment on above: TROPONIN REFERENCE R ANGES: [...] Ql (Urine sed) NONE SEEN NONE SEEN ehealthtracker C & S INDICATED NO NO [facility] Casts LM.LPF (Urine sed) [#/Area] NONE SEEN NONE SEEN /lpf [facility] Epithelial cells.squamous LM.HPF (Urine sed) [#/Area] NONE SEEN NONE SEEN /hpf [facility] Mucus Ql (Urine sed) 1+ THREADS NONE SEEN [facility] RBC LM.HPF (Urine sed) [#/Area] 0-2 NONE SEEN /hpf [facility] Unidentified crystals LM Ql (Urine sed) NONE SEEN NONE SEEN [facility] WBC LM.HPF (Urine sed) [#/Area] NONE SEEN [facility] URINALYSIS WITH REFLEX CULTU REon 05-26-2019 Appearance (U) CLEAR CLEAR [facility] BILIRUBIN, URINE DIPSTICK Negative NEGATIVE [facility] BLOOD, URINE DIPSTICK Negative NEGATIVE [employer] Color (U) YELLOW YELLOW [facility] GLUCOSE, URINE DIPSTICK 100 mg/dL NEGATIVE [facility] KETONES, URINE DIPSTICK Negative NEGATIVE mg/dL [facility] LEUKOCYTE ESTERASE, URINE DIPSTK Negative NEGATIVE [facility] Microscopic observation LM Nom (Urine sed) YES NO [facility] Nitrate Ql (U) Negative NEGATIVE [facility] PH, URINE DIPSTICK 5.0 [facility] Protein (U) [Mass/Vol] Negative NEGAT DOMONIQUE mg/dL [facility] SPECIFIC GRAVITY, URINE DIPSTICK >=1.030 [facility] UROBILINOGEN, URINE DIPSTICK 0.2 [facility] CBC, EDIF, PLATELETon 2018 Basophils/100 WBC (Bld) 1.0 % 0 - 3 % [facility] Eosinophils/100 WBC (Bld) 2.3 % 0 - 4 % [facility] Erythrocyte distribution width Ratio (RBC) 12.3 % 11.5 - 14.5 % [facility] Hematocrit Volume Fraction (Bld) 39.2 % Low 42 - 52 % [facility] Hemoglobin mass conc (Bld) 14.2 g/dL 14 - 18 g/dL [facility] Interpretation and review of laboratory results Abnormal [facility] Lymphocytes/100 WBC (Bld) 34.9 % 20.5 - 51.1 % [employer] MCH Entitic mass (RBC) 33.4 pg High 28 - 32 pg [facility] mass conc (RBC) 36.1 g/dL 33 - 37 g/dL [employer] [employer] MCV Entitic volume (RBC) 92.3 fL 80 - 94 fL [employer] [employer] Monocytes/100 WBC (Bld) 6.3 % 0 - 13 % [employer] [employer] Neutrophils/100 WBC (Bld) 55.5 % 42.2 - 75.2 % [employer] Platelets #/vol (Bld) 149 10*3/uL [facility] RBC #/vol (Bld) 4.25 10*6/uL Low [facility] SCAN SLIDE NO NO [facility] WBC corrected for nucl RBC Auto #/vol (Bld) 4.5 Low [employer] [employer] COMPREHENSIVE METABOLIC PANE Rudolph 05-03-2019 Albumin Bromocresol green (BCG) dye binding method mass conc 3.5 g/dL 3.5 - 5 g/dL [employer] Albumin/Globulin mass ratio 1.1 {ratio} Low [facility] ALP enzyme act/vol 59 U/L 38 - 126 U/L [facility] ALT No additional P-5'-P enzyme act/vol 25 U/L 10 - 40 U/L [facility] AST enzyme act/vol 21 U/L 10 - 42 U/L [facility] [employer] Bilirubin mass conc 0.8 mg/dL 0.3 - 1. 2 mg/dL [employer] Calcium mass conc 8.2 mg/dL Low 8.4 - 10.2 mg/dL [employer] [employer] Chloride molar conc 104 mmol/L [facility] [employer] CO2 molar conc 25 mmol/L [facility] Creatinine mass conc 0.7 mg/dL 0.4 - 1 .1 mg/dL [facility] GFR/1.73 sq M.predicted MDRD vol rate/area mL/min/{1.73_m2} [employer] [employer] Comment on above: Estimated Glomerular filtration Rate Reference Ranges: GFR, mL/min/1.73m2 >= 60 Adequate 30 - 59 Moderately decreased GFR 15 - 29 Severely decreased GFR <18 Kidney failure (or dialysis) GFR calculated using abbreviated MDRD formula. MDRD equation not suitable for patients who are under 18, have unstable creatinine concentrations Globulin mass conc (S) 3.2 g/dL 2.9 - 3.3 g/dL [facility] Glucose mass conc 208 mg/dL High 70 - 126 mg/dL [facility] Interpretation and review of laboratory results Abnormal [facility] Potassium molar conc 3.8 mmol/L [facility] Protein mass conc 6.7 g/dL 6.4 - 8.3 g/dL [facility] Sodium molar conc 137 mmol/L [facility] Urea nitrogen mass conc 14 mg/dL 7 - 22 mg/dL [facility] CT HEAD WITHOUT CONTRASTon 0 05-03-2019 User, [...] non-contrast CT head. No acute [facility] changes[facility] Patient Name: AYAZ ARANDA JR. Patient Patient [...] appear normally pneumatized. The skull appears normal. ehealthtracker IMPRESSION: Normal non-contrast CT head. No acute intracranial changes. ehealthtracker U/A WITH MICROSCOPICon 05-03 Bacteria LM Ql (Urine sed) TRACE NONE SEEN ehealthtracker C & S INDICATED NO NO [facility] Casts LM.LPF #/area (Urine sed) NONE SEEN NONE SEEN /lpf [employer] [facility] Epithelial cells.squamous LM.HPF #/area (Urine sed) 0-2 NONE SEEN /hpf [facility] Mucus Ql (Urine sed) NONE SEEN NONE SEEN [employer] RBC LM.HPF #/area (Urine sed) 0-2 NONE SEEN /hpf [employer] [facility] Unidentified crystals LM Ql (Urine sed) NONE SEEN NONE SEEN [employer] [facility] WBC LM.HPF #/area (Urine sed) 0-2 [facility]alt[facility]racker URINALYSIS WITH REFLEX CULTU REon 05-03-2019 Appearance Nom (U) CLEAR CLEAR [facility] [employer] BILIRUBIN, URINE DIPSTICK Negative NEGATIVE ehealthtracker BLOOD, URINE DIPSTICK Negative NEGATIVE ehealthtracker Color Nom (U) YELLOW YELLOW ehealthtracker GLUCOSE, URINE DIPSTICK 100 mg/dL NEGATIVE ehealthtracker KETONES, URINE DIPSTICK Negative NEGATIVE mg/dL ehealthtracker LEUKOCYTE ESTERASE, URINE DIPSTK Negative NEGATIVE ehealt[facility]racker Microscopic observation LM Nom (Urine sed) YES NO [employer] [facility] Nitrate Ql (U) Negative NEGATIVE ehealthtracker PH, URINE DIPSTICK 6.0 [employer] Protein mass conc (U) Negative NEGATI VE mg/dL ehealthtracker SPECIFIC GRAVITY, URINE DIPSTICK >=1.030 ehealthtracker UROBILINOGEN, URINE DIPSTICK 0.2 ehealthtracker Basic Metabolic Profon 11-25 (cont.) Normal [facility] Comment on above: Result Comment: Aver age GFR for 40-49 years old: 99 mL/min/1.73sq m Chronic Kidney Disease: <60 mL/min/1.73sq m Kidney failure: <15 mL/min/1.73sq m eGFR calculated using average adult body mass. Additional eGFR calculator available at: http://www.globalrph.Dragonfly/multiple_crcl_2012.htm Performed By: #### C DP, BMP, TROPI #### [address] [place] [address] Anion gap [Moles/Vol] 10 mmol/L Normal 9-17 [facility] Comment on above: Performed By: #### C DP, BMP, TROPI #### [address] [place] [address] BUN/CRE Ratio 17 Normal 9-20 [facility] Comment on above: Performed By: #### C DP, BMP, TROPI #### [address] [place] [address] Calcium [Mass/Vol] 8.5 mg/dL Low 8.6-10.4 [facility] Comment on above: Performed By: #### C DP, BMP, TROPI #### [address] [place] [address] Chloride [Moles/Vol] 100 mmol/L Normal 98-107 [facility] Comment on above: Performed By: #### C DP, BMP, TROPI #### [address] [place] [address] CO2 [Moles/Vol] 27 mmol/L Normal 20-31 [facility] Comment on above: Performed By: #### C DP, BMP, TROPI #### [address] [place] [address] Creatinine [Mass/Vol] 0.84 mg/dL Normal 0.70-1.20 [facility] Comment on above: Performed By: #### C DP, BMP, TROPI #### [address] [place] [address] GFR, Amer >60 Normal >60 [facility] Comment on above: Performed By: #### C DP, BMP, TROPI #### [address] [place], [place] [id number] [phone] GFR,non Amer >60 Normal >60 [facility] Comment on above: Performed By: #### C ISABEL BMP, TROPI #### [address] [place] [address] Glucose [Mass/Vol] 213 mg/dL High 70-99 [facility] Comment on above: Performed By: #### C ISABEL, BMP, TROPI #### [address] [place] [address] Potassium [Moles/Vol] 3.6 mmol/L Low 3.7-5.3 [facility] Comment on above: Performed By: #### C ISABEL, BMP, TROPI #### [address] [place] [address] Sodium [Moles/Vol] 137 mmol/L Normal 135-144 [facility] Comment on above: Performed By: #### C ISABEL BMP, TROPI #### [address] [place] [address] Staging: Normal [facility] Comment on above: Result Comment: Stag e 1: Some kidney damage normal GFR Stage 2: Mild kidney damage GFR 60-89 Stage 3: Moderate kidney damage GFR 30-59 Stage 4: Severe kidney damage GFR 15-29 Stage 5: Severe kidney damage GFR <15 ESRD - chronic treatment by dialysis or transplant Performed By: #### C ISABEL, BMP, TROPI #### [address] [place] [address] Urea nitrogen [Mass/Vol] 14 mg/dL Normal 6-20 [facility] Comment on above: Performed By: #### C ISABEL, BMP, TROPI #### [address] [place], [place] [id number] [phone] CBC with Diffon 11-25-2018 Abs. Basophil <0.03 Normal 0.00-0.20 [facility] Comment on above: Performed By: #### C DP, BMP, TROPI #### [address] [place] [address] Abs.Imm.Granulocyte <0.03 Normal 0.00-0.30 [facility] Comment on above: Performed By: #### C DP, BMP, TROPI #### [address] [place] [address] Abs.Neutrophil (Seg) 1.92 k/uL Normal 1.50-8.10 [facility] Comment on above: Performed By: #### C DP, BMP, TROPI #### [address] [place] [address] Basophils/100 WBC (Bld) 0 % Normal 0-2 [facility] Comment on above: Performed By: #### C DP, BMP, TROPI #### [address] [place] [address] Eosinophils (Bld) [#/Vol] 10*3/uL Normal 0.00-0.44 [facility] Comment on above: Performed By: #### C DP, BMP, TROPI #### [address] [place] [address] Eosinophils/100 WBC (Bld) 0 % Low 1-4 [facility] Comment on above: Performed By: #### C DP, BMP, TROPI #### [address] [place] [address] Erythrocyte distribution width (RBC) [Ratio] 12.9 % Normal 11.8-14.4 [facility] Comment on above: Performed By: #### C DP, BMP, TROPI #### [address] [place] [address] Hematocrit (Bld) [Volume fraction] 38.7 % Low 40.7-50.3 [facility] Comment on above: Performed By: #### C DP, BMP, TROPI #### [address] [place] [address] Hemoglobin (Bld) [Mass/Vol] 13.3 g/dL Normal 13.0-17.0 [facility] Comment on above: Performed By: #### C DP, BMP, TROPI #### [address] [place] [address] Immature granulocytes (Bld) [#/Vol] 0 % Normal 0 [facility] Comment on above: Performed By: #### C DP, BMP, TROPI #### [address] [place], [id number] Lymphocytes (Bld) [#/Vol] 0.85 10*3/uL Low 1.10-3.70 [facility] Comment on above: Performed By: #### C DP, BMP, TROPI #### [address] [place], [id number] Lymphocytes/100 WBC (Bld) 25 % Normal 24-43 [facility] Comment on above: Performed By: #### C DP, BMP, TROPI #### [address] [place] [address] MCH (RBC) [Entitic mass] 32.9 pg Normal 25.2-33.5 [facility] Comment on above: Performed By: #### C DP, BMP, TROPI #### [address] [place], [id number] MCHC (RBC) [Mass/Vol] 34.4 g/dL Normal 28.4-34.8 [facility] Comment on above: Performed By: #### C DP, BMP, TROPI #### [address] [place], [id number] MCV (RBC) [Entitic vol] 95.8 fL Normal 82.6-102.9 [facility] Comment on above: Performed By: #### C DP, BMP, TROPI #### [address] [place] [address] Monocytes (Bld) [#/Vol] 0.58 10*3/uL Normal 0.10-1.20 [facility] Comment on above: Performed By: #### C DP, BMP, TROPI #### [address] [place] [address] Monocytes/100 WBC (Bld) 17 % High 3-12 [facility] Comment on above: Performed By: #### C DP, BMP, TROPI #### [address] [place] [address] Neutrophil (Seg) 57 % Normal 36-65 [facility] Comment on above: Performed By: #### C DP, BMP, TROPI #### [address] [place], [id number] NRBC Automated 0.0 per 100 WBC Normal 0.0 [facility] Comment on above: Performed By: #### C DP, BMP, TROPI #### [address] [place], [id number] Platelet mean volume (Bld) [Entitic vol] 10.8 fL Normal 8.1-13.5 [facility] Comment on above: Performed By: #### C DP, BMP, TROPI #### [address] [place], [id number] Platelets (Bld) [#/Vol] 131 10*3/uL Low 138-453 [facility] Comment on above: Performed By: #### C DP, BMP, TROPI #### [address] [place], [place] [address] RBC (Bld) [#/Vol] 4.04 10*6/uL Low 4.21-5.77 [facility] Comment on above: Performed By: #### C DP, BMP, TROPI #### [address] [place], [place] [phone] WBC (Bld) [#/Vol] 3.4 10*3/uL Low 3.5-11.3 [facility] Comment on above: Performed By: #### C REBECA HALL, TROPI #### [address] [place], [place] [id number] [phone] Flu A/B Ag Detectionon 11-25 Flu A/B Ag Detection Specimen Descriptio n .NASOPHARYNGEAL SWAB Special Requests NOT REPORTED Direct Exam POSITIVE for Influenza A Antigen NEGATIVE for Influenza B Antigen Report Status FINAL 11/24/2018 Normal [facility] Comment on above: Performed By: #### F LUAD #### [address] [place] [id number] Strep Gr A Direct Agon 11-25 Strep Gr A Direct Ag Specimen Descriptio n .THROAT Special Requests NOT REPORTED Direct Exam Rapid Strep A negative. A negative Rapid Group A Strep Screen result does not rule out the possibility of Group A Streptococci in the specimen. A Group A Strep DNA test is available upon request. Report Status FINAL 11/24/2018 Normal [facility] Comment on above: Performed By: #### S GPA #### [address] [place], [place] [id number] Troponinon 11-25-2018 Troponin I.cardiac [Mass/Vol] ng/mL Normal <0.03 [facility] Comment on above: Result Comment: Trop onin T results cannot be compared to Troponin-I results. Performed By: #### C ISABEL, REBECA, TROPI #### [address] [place], [place] [phone] Troponin I.cardiac [Mass/Vol] Normal [facility] Comment on above: Result Comment: Refe rence [...] By: #### C DP, BMP, TROPI #### [address] [place] [address] XR CHEST PORTABLEon 11-25-20 XR CHEST PORTABLE [...] La Garza MD 11/24/18 Final result Normal [facility] CBC with Diffon 11-24-2018 Auto Diff Performed NOT REPORTED Normal [facility] Comment on above: Performed By: #### C DP, BMP, TROPI #### [address] [place] [address] Platelets (Bld) [#/Vol] NOT REPORTED Normal [facility] Comment on above: Performed By: #### C DP, BMP, TROPI #### [address] [place] [address] RBC morphology finding Nom (Bld) NOT REPORTED Normal [facility] Comment on above: Performed By: #### C DP, BMP, TROPI #### [address] [place] [address] WBC Morphology NOT REPORTED Normal [facility] Comment on above: Performed By: #### C DP, BMP, TROPI #### [address] [place] [address] Troponinon 11-24-2018 Troponin I.cardiac [Mass/Vol] NOT REPORTED Normal 0-22 [facility] Comment on above: Performed By: #### C DP, BMP, TROPI #### [address] [place] [address] FANNYOVon 10-09-2018 CNOV Office Visit (UROLMN ) -- JUSTICE ARANDA ([id number]) 1970 M Date Time Provider Department 10/09/18 1:30 PM KARY MENDEZ UROROSEANN During your visit today, we recorded the following information about you: Temperature Pulse Blood pressure 97.5 degrees 94/minute 135/81 Kary Mendez MD 10/09/2018 3:29 PM Signed [facility] NEW PATIENT HISTORY AND PHYSICAL EXAM PATIENT INFO: Justice Aranda 48 year old REFERRING M.D.: Dennis Mason MD [address] [facility] [address] ====== HISTORY 48 year old male here for an ED consult. He has a med history of HTN, DM- recently started on Metformin and just began checking blood glucose. He had been in half-way, reports sustaining a head injury Sep 2016. [...] this provides a half erection. [facility] reported that injections were not a [...] for internal providers or letter via the [employer] for external providers. 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 Mason: I had the pleasure of seeing your patient today. Enclosed is a copy of his office visit note. Thank you for the opportunity of sharing in his care. Sincerely yours, Kary Mendez MD DKM/ms Enc: office note Encounter Status:Closed by KARY MENDEZ MD on 10/09/[address] [facility] PROGRESSon 10-09-2018 PROGRESS HNO ID: [id number] Author: Kary Mendez Service: (none) Author Type: Physician Type: Progress Notes Filed: 10/09/2018 3:29 PM Note Text: [facility] NEW PATIENT HISTORY AND PHYSICAL EXAM PATIENT INFO: Justice Aranda 48 year old REFERRING M.D.: Dennis Mason MD [address] [place] [address] ====== HISTORY 48 year old male here for an ED consult. He has a med history of HTN, DM- recently started on Metformin and just began checking blood glucose. He had been in half-way, reports sustaining a head injury Sep 2016. [...] this provides a half erection. [facility] reported that injections were not a [...] for internal providers or letter via the [employer] for external providers. HPI: Girlfriend [...] MD October 09, 2018 3:03 PM Normal [facility] Urinalysison 10-09-2018 Bilirubin, Urine Negative Normal Negative Alessandra sesay [facility] Comment on above: Performed By: #### U A #### [facility] [address] [place], [place] [address] Clarity (U) Clear Normal Clear [facility] Comment on above: Performed By: #### U A #### [facility] [address] [place] [address] Color (U) Yellow Normal Yellow [facility] Comment on above: Performed By: #### U A #### [facility] [address] [place] [address] Comments SEE COMMENT Normal [facility] Comment on above: Result Comment: Micr oscopic not warranted Performed By: #### U A #### [place] [id number] [place] [address] Glucose Ql (U) >=1000 Critically abnormal Negative [facility] Comment on above: Performed By: #### U A #### [place] [phone] Hemoglobin/Blood,Ur Negative Normal Negative [facility] Comment on above: Performed By: #### U A #### [facility] [address] [place] [address] Ketones Ql (U) Negative Normal Negative [facility] Comment on above: Performed By: #### U A #### [place] [address] [place] [address] Leukest Negative Normal Negative [facility] Comment on above: Performed By: #### U A #### [facility] [address] [place] [phone] Nitrite Ql (U) Negative Normal Negative [facility] Comment on above: Performed By: #### U A #### [facility] [address] [place] [address] pH (Bld) 5.5 Normal 4.5-8.[address] [facility] Comment on above: Performed By: #### U A #### [place] [address] [place] [address] Protein (U) [Mass/Vol] Negative Normal Negative Cl [facility] Comment on above: Performed By: #### U A #### [facility] [address] [place], [place] [address] Specific [place], Ur 1.018 Normal 1.005-1.[address] [facility] Comment on above: Performed By: #### U A #### [facility] [address] [place] [address] Urine Zach Comment SEE COMMENT Normal [facility] Comment on above: Result Comment: N/A Performed By: #### U A #### [facility] [address] [place] [address] Urobilinogen Qn (U) Normal Normal Normal [facility] Comment on above: Performed By: #### U A #### [place] [id number] [place] [address] Vital Signs Date Time Vital Sign Value Performing Clinician Facility 08-15-2023 10:16-0400 Diastolic blood pressure 76 mm[Hg] DO Crow Dean Work Phone: [facility] 08-15-2023 10:16-0400 Heart rate 89 /min DO Crow Dean Work Phone: [facility] 08-15-2023 10:16-0400 Respiratory rate 18 /min DO Crow Dean Work Phone: [facility] 08-15-2023 10:16-0400 SaO2% (BldA) [Mass fraction] 97 % DO Crow Dean Work Phone: [facility] 08-15-2023 10:16-0400 Systolic blood pressure 139 mm[Hg] DO Crow Dean Work Phone: [facility] 08-15-2023 08:18-0400 Body height 180.34 cm DO Crow Dean Work Phone: [facility] 08-15-2023 08:18-0400 Body temperature 97.8 [degF] DO Crow Dean Work Phone: [facility] 08-15-2023 08:18-0400 Body weight 80.2 kg DO Crow Sumanth Work Phone: [facility] 07-23-2023 05:21-0400 Diastolic blood pressure 74 mm[Hg] DO Crow Sumanth Work Phone: [facility] 07-23-2023 05:21-0400 Heart rate 78 /min DO Crow Dean Work Phone: [facility] 07-23-2023 05:21-0400 Respiratory rate 19 /min DO Crow Dean Work Phone: [facility] 07-23-2023 05:21-0400 SaO2% (BldA) [Mass fraction] 98 % DO Crow Dean Work Phone: [facility] 07-23-2023 05:21-0400 Systolic blood pressure 143 mm[Hg] DO Crow Dean Work Phone: [facility] 07-22-2023 23:53-0400 Body height 180.34 cm DO Crow Dean Work Phone: [facility] 07-22-2023 23:53-0400 Body temperature 98.6 [degF] DO Crow Dean Work Phone: [facility] 07-22-2023 23:53-0400 Body weight 79 kg DO Crow Dean Work Phone: [facility] 06-30-2023 12:41-0400 Diastolic blood pressure 82 mm[Hg] DO Crow Sumanth Work Phone: [facility] 06-30-2023 12:41-0400 Heart rate 71 /min DO Crow Sumanth Work Phone: [facility] 06-30-2023 12:41-0400 Respiratory rate 18 /min DO Crow Sumanth Work Phone: [facility] 06-30-2023 12:41-0400 SaO2% (BldA) [Mass fraction] 99 % DO Crow Reyman Work Phone: [facility] 06-30-2023 12:41-0400 Systolic blood pressure 178 mm[Hg] DO Crow Sumanth Work Phone: [facility] 06-30-2023 10:17-0400 Body height 180.34 cm DO Crow Dean Work Phone: [facility] 06-30-2023 10:17-0400 Body temperature 97.8 [degF] DO Crow Dean Work Phone: [facility] 06-30-2023 10:17-0400 Body weight 83.95 kg DO Crow Dean Work Phone: [facility] 06-24-2023 11:31-0400 Diastolic blood pressure 54 mm[Hg] DO Crow Dean Work Phone: [facility] 06-24-2023 11:31-0400 Heart rate 89 /min DO Crow Dean Work Phone: [facility] 06-24-2023 11:31-0400 Respiratory rate 20 /min DO Crow Dean Work Phone: [facility] 06-24-2023 11:31-0400 SaO2% (BldA) [Mass fraction] 99 % DO Crow Dean Work Phone: [facility] 06-24-2023 11:31-0400 Systolic blood pressure 132 mm[Hg] DO Crow Sumanth Work Phone: [facility] 06-24-2023 09:44-0400 Body height 177.8 cm DO Crow Sumanth Work Phone: [facility] 06-24-2023 09:44-0400 Body temperature 98.6 [degF] DO Crow Dean Work Phone: [facility] 06-24-2023 09:44-0400 Body weight 84.2 kg DO Crowmicky Dean Work Phone: [facility] 05-05-2023 11:27-0400 Body temperature 98.4 [degF] DO Crowmicky Dean Work Phone: [facility] 05-05-2023 11:27-0400 Diastolic blood pressure 70 mm[Hg] DO Crow Dean Work Phone: [facility] 05-05-2023 11:27-0400 Heart rate 81 /min DO Crow Dean Work Phone: [facility] 05-05-2023 11:27-0400 Respiratory rate 18 /min DO Crow Dean Work Phone: [facility] 05-05-2023 11:27-0400 SaO2% (BldA) [Mass fraction] 99 % DO Crow Dean Work Phone: [facility] 05-05-2023 11:27-0400 Systolic blood pressure 123 mm[Hg] DO Crow Dean Work Phone: [facility] 05-05-2023 05:38-0400 Body weight 85.4 kg DO Crwo Dean Work Phone: [facility] 05-04-2023 16:05-0400 Body height 154.94 cm DO Crow Dean Work Phone: [facility] 05-03-2023 20:13-0400 Body temperature 100.6 [degF] DO Crow Sumanth Work Phone: [facility] 05-03-2023 20:13-0400 Diastolic blood pressure 83 mm[Hg] DO Crow Sumanth Work Phone: [facility] 05-03-2023 20:13-0400 Heart rate 105 /min DO Crow Sumanth Work Phone: [facility] 05-03-2023 20:13-0400 Respiratory rate 20 /min DO Crow Sumanth Work Phone: [facility] 05-03-2023 20:13-0400 SaO2% (BldA) [Mass fraction] 97 % DO Crow Sumanth Work Phone: [facility] 05-03-2023 20:13-0400 Systolic blood pressure 184 mm[Hg] DO Crow Sumanth Work Phone: [facility] 05-03-2023 13:37-0400 Body height 154.94 cm DO Crow Sumanth Work Phone: [facility] 05-03-2023 13:37-0400 Body weight 85.35 kg DO Crow Sumanth Work Phone: [facility] 01-07-2023 21:30-0500 Diastolic blood pressure 77 mm[Hg] DO Crow Sumanth Work Phone: [facility] 01-07-2023 21:30-0500 Heart rate 94 /min DO Crow Sumanth Work Phone: [facility] 01-07-2023 21:30-0500 Respiratory rate 20 /min DO Crow Sumanth Work Phone: [facility] 01-07-2023 21:30-0500 SaO2% (BldA) [Mass fraction] 97 % DO Crow Sumanth Work Phone: [facility] 01-07-2023 21:30-0500 Systolic blood pressure 115 mm[Hg] DO Crow Sumanth Work Phone: [facility] 01-07-2023 18:46-0500 Body height 180.34 cm DO Crow Sumanth Work Phone: [facility] 01-07-2023 18:46-0500 Body temperature 99.8 [degF] DO Crow Sumanth Work Phone: [facility] 01-07-2023 18:46-0500 Body weight 83.75 kg DO Crow Sumanth Work Phone: [facility] 10-26-2022 10:30-0500 Diastolic blood pressure 69 mm[Hg] DO Crow Sumanth Work Phone: [facility] 10-26-2022 10:30-0500 Heart rate 68 /min DO Crow Sumanth Work Phone: [facility] 10-26-2022 10:30-0500 Respiratory rate 16 /min DO Crow Dean Work Phone: [facility] 10-26-2022 10:30-0500 SaO2% (BldA) [Mass fraction] 97 % DO Crow Dean Work Phone: [facility] 10-26-2022 10:30-0500 Systolic blood pressure 128 mm[Hg] DO Crow Dean Work Phone: [facility] 10-26-2022 09:12-0500 Body height 180.34 cm DO Crow Dean Work Phone: [facility] 10-26-2022 09:12-0500 Body temperature 98.9 [degF] DO Crow Dean Work Phone: [facility] 10-26-2022 09:12-0500 Body weight 85.2 kg DO Crow Sumanth Work Phone: [facility] 10-13-2022 09:18-0500 Body height 172.72 cm DO Crow Sumanth Work Phone: [facility] 10-13-2022 09:18-0500 Body temperature 98.5 [degF] DO Crow Sumanth Work Phone: [facility] 10-13-2022 09:18-0500 Body weight 85.5 kg DO Crow Sumanth Work Phone: [facility] 10-13-2022 09:18-0500 Diastolic blood pressure 90 mm[Hg] DO Crow Sumanth Work Phone: [facility] 10-13-2022 09:18-0500 Heart rate 81 /min DO Crow Sumanth Work Phone: [facility] 10-13-2022 09:18-0500 Respiratory rate 18 /min DO Crow Sumanth Work Phone: [facility] 10-13-2022 09:18-0500 SaO2% (BldA) [Mass fraction] 98 % DO Crow Sumanth Work Phone: [facility] 10-13-2022 09:18-0500 Systolic blood pressure 142 mm[Hg] DO Crow Sumanth Work Phone: [facility] 10-11-2022 13:54-0500 Diastolic blood pressure 83 mm[Hg] DO Crow Sumanth Work Phone: [facility] 10-11-2022 13:54-0500 Heart rate 76 /min DO Crow Sumanth Work Phone: [facility] 10-11-2022 13:54-0500 Respiratory rate 16 /min DO Crow Sumanth Work Phone: [facility] 10-11-2022 13:54-0500 SaO2% (BldA) [Mass fraction] 98 % DO Crow Sumanth Work Phone: [facility] 10-11-2022 13:54-0500 Systolic blood pressure 138 mm[Hg] DO Crow Sumanth Work Phone: [facility] 10-11-2022 11:45-0500 Body height 180.34 cm DO Crow Sumanth Work Phone: [facility] 10-11-2022 11:45-0500 Body temperature 98.5 [degF] DO Crow Dean Work Phone: [facility] 10-11-2022 11:45-0500 Body weight 84.8 kg DO Crow Dean Work Phone: [facility] 06-06-2019 23:24-0400 Body Temperature 99.61 [degF] Ivett Fan [employer] 06-06-2019 22:00-0400 BP Diastolic 63 mm[Hg] Ivett Fan [employer] 06-06-2019 22:00-0400 BP Systolic 121 mm[Hg] Ivett Fan [employer] 06-06-2019 22:00-0400 Pulse Oximetry 96 % Ivett Fan [employer] 06-06-2019 21:39-0400 BMI (Body Mass Index) 27.89 kg/m2 Ivett Fan [employer] 06-06-2019 21:39-0400 Body weight 90.72 kg Ivett Fan [employer] 06-06-2019 21:39-0400 Height 180.3 cm Ivett Fan [employer] 06-06-2019 21:37-0400 Pulse (Heart Rate) 96 /min Ivett Fan [employer] 06-06-2019 21:37-0400 Respiratory Rate 16 /min Ivett Fan [employer] 06-04-2019 19:06-0400 BMI (Body Mass Index) 27.91 kg/m2 Ivett Fan [employer] 06-04-2019 19:06-0400 Body weight 90.77 kg Ivett Fan [employer] 06-04-2019 19:06-0400 Height 180.3 cm Ivett Fan [employer] 06-04-2019 19:05-0400 Body Temperature 99.3 [degF] Ivett Fan [employer] 06-04-2019 19:05-0400 BP Diastolic 65 mm[Hg] Ivett Fan [employer] 06-04-2019 19:05-0400 BP Systolic 122 mm[Hg] Ivett Fan [facility] 06-04-2019 19:05-0400 Pulse (Heart Rate) 96 /min Ivett Fan [facility] 06-04-2019 19:05-0400 Respiratory Rate 18 /min Ivett Fan [facility] 05-31-2019 23:00-0400 BP Diastolic 71 mm[Hg] Ivett Fan [facility] 05-31-2019 23:00-0400 BP Systolic 107 mm[Hg] Ivett Fan [facility] 05-31-2019 21:55-0400 BMI (Body Mass Index) 30.1 kg/m2 Ivett Fan [facility] 05-31-2019 21:55-0400 Body weight 97.89 kg Ivett Fan [facility] 05-31-2019 21:55-0400 Height 180.3 cm Ivett Fan [facility] 05-31-2019 21:53-0400 Body Temperature 99.61 [degF] Ivett Fan [facility] 05-31-2019 21:53-0400 Pulse (Heart Rate) 98 /min Ivett Fan [facility] 05-31-2019 21:53-0400 Pulse Oximetry 96 % Ivett Fan [facility] 05-31-2019 21:53-0400 Respiratory Rate 18 /min Ivett Fan [facility] 05-26-2019 10:58-0400 BP Diastolic 80 mm[Hg] [facility] 05-26-2019 10:58-0400 BP Systolic 131 mm[Hg] [facility] 05-26-2019 10:58-0400 Pulse (Heart Rate) 61 /min [facility] 05-26-2019 10:58-0400 Pulse Oximetry 97 % [facility] 05-26-2019 10:00-0400 Respiratory Rate 12 /min [facility] 05-26-2019 09:14-0400 BMI (Body Mass Index) 28.45 kg/m2 [facility] 05-26-2019 09:14-0400 Body weight 92.53 kg Sayed Sabek [facility] 05-26-2019 09:14-0400 Height 180.3 cm [facility] 05-26-2019 09:12-0400 Body Temperature 97.59 [degF] [facility] 05-03-2019 11:00-0400 BP Diastolic 68 mm[Hg] Vik [facility] 05-03-2019 11:00-0400 BP Systolic 130 mm[Hg] Vik [facility] 05-03-2019 11:00-0400 Pulse Oximetry 99 % Vik [facility] 05-03-2019 09:27-0400 Pulse (Heart Rate) 56 /min [facility] 05-03-2019 08:54-0400 BMI (Body Mass Index) 26.08 kg/m2 [facility] 05-03-2019 08:54-0400 Height 180.3 cm [facility] 05-03-2019 08:54-0400 Weight 84.82 kg Vik [facility] 05-03-2019 08:53-0400 Body Temperature 98.6 [degF] [facility] 05-03-2019 08:53-0400 Respiratory Rate 18 /min [facility] Encounters Encounter Date Encounter Type Care Provider Facility Start: 11-10-2023 End: 11-10-2023 ambulatory CROW DEAN Not Available Start: 08-15-2023 End: 08-15-2023 Emergency department patient visit Crow Dean Facility:[facility] Start: 08-15-2023 End: 08-15-2023 Emergency department patient visit DO Crow Dean Work Phone: [facility] Work Phone: Start: 07-23-2023 End: 07-23-2023 Emergency department patient visit Crow Dean Facility:[facility] Start: 07-22-2023 End: 07-23-2023 Emergency department patient visit DO Crow Dean Work Phone: [facility] Work Phone: Start: 06-30-2023 End: 06-30-2023 Emergency department patient visit Chen Thapa Dave Facility:[facility] Start: 06-30-2023 End: 06-30-2023 Emergency department patient visit DO Crow Dean Work Phone: [facility] Work Phone: Start: 06-24-2023 End: 06-24-2023 Emergency department [facility] [facility] Start: 06-24-2023 End: 06-24-2023 Emergency department patient visit DO Crow Dean Work Phone: [facility]Emergency [facility] Work Phone: Start: 05-03-2023 End: 05-05-2023 Evaluation and management of inpatient Eldon Ambriz Facility:[facility] Start: 05-03-2023 End: 05-05-2023 Evaluation and management of inpatient DO Crow Dean Work Phone: [facility] [place] [facility] Work Phone: Start: 01-07-2023 End: 01-08-2023 Emergency department patient visit Crow Dean Facility:[facility] Start: 01-07-2023 End: 01-07-2023 Emergency department patient visit DO Crow Dean Work Phone: [facility] Work Phone: Start: 11-10-2022 End: 11-10-2022 ambulatory Crow Dean Facility:[facility] Start: 11-10-2022 End: 11-10-2022 ambulatory DO Crow Dean Work Phone: [facility] Work Phone: Start: 11-10-2022 End: 11-10-2022 Patient encounter procedure DO Crow Dean Work Phone: [facility]-CT Scan [facility] [place] Start: 11-04-2022 End: 11-04-2022 ambulatory Crow Dean Facility:[facility] Start: 11-04-2022 End: 11-04-2022 ambulatory DO Crow Dean Work Phone: [facility] Work Phone: Start: 11-04-2022 End: 11-04-2022 Patient encounter procedure DO Crow Dean Work Phone: [facility]-Lab [facility] [place] Start: 10-26-2022 End: 10-26-2022 Emergency department patient visit Ladi Nenita Mina Facility:[facility] Start: 10-26-2022 End: 10-26-2022 Emergency department patient visit DO Crow Dean Work Phone: [facility] Start: 10-13-2022 End: 10-13-2022 Emergency department patient visit Crow Sumanth Facility:[facility] Start: 10-13-2022 End: 10-13-2022 Emergency department patient visit DO Crow Dean Work Phone: [facility] Start: 10-11-2022 End: 10-11-2022 Emergency department patient visit Vimal Thayer Facility:[facility] Start: 10-11-2022 End: 10-11-2022 Emergency department patient visit DO Crow Dean Work Phone: [facility]-Emergency Room Start: 10-01-2019 Patient encounter procedure LOY ABREU [facility] Start: 10-01-2019 End: 10-01-2019 Patient encounter procedure Loy Abreu Work Phone: [facility] Comment on above: Tear of ulnar collat eral ligament of right elbow, initial encounter (Primary Dx); Elbow pain, chronic, right Start: 09-25-2019 End: 09-25-2019 Telephone encounter Sofiya Avina Work Phone: [facility] Comment on above: Elbow Pain Start: 09-24-2019 Patient encounter procedure LOY ABREU [facility] Start: 09-24-2019 End: 09-24-2019 Patient encounter procedure Loy Abreu Work Phone: [facility] Comment on above: Tear of ulnar collat eral ligament of right elbow, initial encounter (Primary Dx); Elbow pain, chronic, right Start: 09-18-2019 End: 09-18-2019 Patient encounter procedure Loy Abreu Work Phone: [employer] Comment on above: Right elbow pain (Pr imary Dx) Start: 08-14-2019 Patient encounter status DO Crow Dean Work Phone: [facility] Start: 06-06-2019 End: 06-07-2019 Emergency department patient visit Ivett Omer' Work Phone: [facility] Start: 06-04-2019 End: 06-04-2019 Emergency department patient visit Ivett Omer' Work Phone: [facility] Start: 06-01-2019 End: 06-01-2019 Outside Orders Historical Provider [facility] [employer] Comment on above: Swelling of right el bow Arrived Start: 05-31-2019 End: 05-31-2019 Emergency department patient visit Ivett Omer' Work Phone: [facility] Start: 05-28-2019 End: 05-28-2019 Outside Orders Historical Provider [employer] Start: 05-26-2019 End: 05-26-2019 Emergency department patient visit Leilani Gutierres Shobhasujey Work Phone: [facility] Start: 05-03-2019 End: 05-03-2019 Emergency department patient visit Vik Mendosa Work Phone: [facility] Start: 11-24-2018 End: 11-25-2018 Emergency department patient visit [facility] Procedures Date Procedure Procedure Detail Performing Clinician Start: 07-23-2023 Plain chest X-ray DO Alexander Dean Work Phone: Start: 06-24-2023 Plain chest X-ray DO Alexander Dean [employer] Phone: Start: 05-03-2023 Ultrasonography of b ilateral kidneys DO Crow Dean [employer] Phone: Start: 05-03-2023 Respiratory Panel (PCR) DO Crow Dean [employer] Phone: Start: 05-03-2023 Plain chest X-ray DO Alexander Dean Work Phone: Start: 01-07-2023 Plain chest X-ray DO Alexander Dean Work Phone: Start: 11-10-2022 CT of head without contrast DO Crow Dean [employer] Phone: Start: 11-10-2022 US scan of gallbladder DO Crow Dean [employer] Phone: Start: 10-26-2022 SARS-CoV-2, Influenz a & RSV (PCR) DO Crow Dean [employer] Phone: Start: 10-26-2022 CT of abdomen and pe lvis without contrast DO Crow Dean [employer] Phone: Start: 10-11-2022 SARS-CoV-2, Influenz a & RSV (PCR) DO Crow Dean [employer] Phone: Start: 10-11-2022 Diagnostic radiograp hy of abdomen DO Crow Dean [employer] Phone: Start: 06-07-2019 Computed tomography of abdomen [...] 07-23-2023 Plain chest X-ray XR chest 2V* [facility] Start: 07-23-2023 XR Chest 2 Views [facility] Start: 05-05-2023 [facility] Start: 05-04-2023 Administration of prophylactic treatment [facility] Start: 05-04-2023 Comprehensive metabolic 2000 panel - Serum or Plasma [facility] Start: 05-04-2023 Lipid panel [facility] Start: 05-04-2023 [facility] Start: 05-03-2023 End: 05-03-2023 [facility] Start: 05-03-2023 Ultrasonography of bilateral kidneys US renal BI [facility] Start: 05-03-2023 Hospital admission [facility] Start: 05-03-2023 [facility] Start: 05-03-2023 [facility] Start: 05-03-2023 Respiratory Panel (PCR) Respiratory Panel (PCR) [facility] Start: 10-11-2019 End: 10-11-2019 Rehab Services Visit 10/11/2019 Rehab Services Visit Occupational Therapy Loy Abreu, DO [address] [place] [address] Sam Huang, OT [address] [place] [address] [facility] Start: 10-09-2019 End: 10-09-2019 Rehab Services Visit 10/09/2019 Rehab Services Visit Occupational Therapy Loy Abreu, DO [address] [place] [address] Sofiya Avina, OT [address] [place] [address] [phone] [facility] Start: 10-08-2019 End: 10-08-2019 Rehab Services Visit 10/08/2019 Rehab Services Visit Occupational Therapy Loy Abreu, DO [address] [place] [address] Pat Goss FREELANCE PROGRAMMER/APP DEVELOPER [address] [place] [address] [facility] Start: 10-03-2019 End: 10-03-2019 Rehab Services Visit 10/03/2019 Rehab Services Visit Occupational Therapy Loy Abreu, DO [address] [place] [address] Pat Goss FREELANCE PROGRAMMER/APP DEVELOPER [address] [place] [address] [facility] Start: 10-01-2019 End: 10-01-2019 Rehab Services Visit 10/01/2019 Rehab Services Visit Occupational Therapy Loy Abreu, DO [address] [place] [address] Pat Goss FREELANCE PROGRAMMER/APP DEVELOPER [address] [place] [address] [facility] Start: 09-24-2019 End: 09-24-2019 Rehab Services Visit 09/24/2019 Rehab Services Visit Occupational Therapy Loy Abreu, DO [address] [place] [address] [phone] Mona Lynch, OT [address] [place], [place] [id number] [facility] Start: 07-29-2019 Influenza vaccination [facility] Start: 2019 Colonoscopy COLON CANCER SCREENING DISCUSSION [facility] Start: 2019 Prostate specific antigen measurement PROSTATE CANCER SCREENING DISCUSSION [facility] Start: 2019 Zoster vaccine hzv live for subcutaneous use ZOSTER (SHINGLES) VACCINE (1 of 2) [facility] Start: 2009 Fasting lipid profile LIPID SCREENING [facility] Start: 1988 Third diphtheria, tetanus and acellular pertussis (DTaP) vaccination TDAP (ADULT) [facility] Start: 1987 Tetanus vaccination TETANUS [facility] Start: 1982 HIV screening HIV SCREENING DISCUSSION [facility] ALCOHOL (ETHANOL),BLOOD ALCOHOL (ETHANOL),BLOOD Lab STAT 05/26/2019 9:48 AM EDT [facility] Patient Education [facility] Work Phone: Patient referral [facility] Work Phone: Immunizations Immunization Date Immunization Notes Care Provider Fa cility 04-18-2020 tetanus toxoid, redu wendi diphtheria toxoid, and acellular pertussis vaccine, adsorbed DO Crow Dean Work Phone: [facility] Payers Date Payer Category Payer Self-pay [id number] 2019 Unknown [id number] 2019 Unknown [facility] [place] OR [facility] OR OTHER [place] OR [place] OR OTHER xxxxxxxxx 2019-Present xxxxxxxxx [id number] 2019 Unknown [id number] 2019 Unknown ANTHEM ANTHEM HM O PPO POS xxxxxxxxxxxx 2019-Present xxxxxxxxxxxx [id number] 2017 Unknown [id number] 1970 Unknown [id number] 2..[id number] .173 1969 Unknown [id number] 2.16.840.1.975792.3.579.2 .111 1969 Unknown [id number] 2..840.1.996825.3.579.2 .111 1969 Unknown [id number] .840.1.201614.3.579.2 .111 1969 Unknown [id number] .840.1.895161.3.579.2 .1259 Medicaid [employer] [id number] Private Health Insurance [facility] [place] [id number] Unknown [place] BC/BS [id number] Unknown [id number] .[id number] .531 Unknown [id number] .840.1.828729.3.579.2 .531 Unknown [id number] .840.1.396752.3.579.2 .531 Unknown [id number] .840.1.342044.3.579.2 .531 Unknown [id number] 2.840.1.182345.3.579.2 .531 Unknown [id number] .840.1.154231.3.579.2 .531 Unknown [id number] 2.16.840.1.610100.3.579.2 .531 Unknown [id number] 2.16.840.1.546929.3.579.2 .531 Unknown [id number] 2.16.840.1.796111.3.579.2 .531 Unknown [id number] 2.16.840.1.187356.3.579.2 .531 Unknown [id number] 2.16.840.1.504215.3.579.2 .531 Social History Date Type Detail Facility Start: 05-03-2019 End: 06-30-2023 Tobacco smoking status NHIS Former smoker [facility] Start: 05-03-2019 History SDOH Alcohol Frequency 1 [employer] Sex Assigned At Not on file [employer] Start: 05-31-2019 End: 10-11-2022 Tobacco smoking status MNIS Current some day smoker [facility] History of tobacco use Cigar Smoker [employer] Start: 05-31-2019 History SDOH Alcohol Frequency 3 [employer] Start: 06-06-2019 Alcohol intake Yes [employer] Start: 06-06-2019 Alcohol intake Current drinke r of alcohol (finding) [employer] Start: 1970 Sex Assigned At Male F [facility] Start: 10-26-2022 End: 05-03-2023 Tobacco smoking status MNIS Never smoked tobacco (finding) [facility] Start: 01-07-2023 End: 08-15-2023 Tobacco smoking status MNIS Smoker (finding) [facility] Medical Equipment Procedure Code Equipment Code Equipment Origin al Text Equipment Identifier Dates Discectomy, lumbar Bone-screw internal spinal fixation system, non-sterile [id number] FDA Start: 04-18-2020 Discectomy, lumbar Bone-screw internal spinal fixation system, non-sterile [id number] FDA Start: 04-18-2020 Discectomy, lumbar Bone-screw internal spinal fixation system, non-sterile [id number] FDA Start: 04-18-2020 Discectomy, lumbar Bone-screw internal spinal fixation system, non-sterile ()[id number] FDA Start: 04-18-2020 Discectomy, lumbar Bone-screw internal spinal fixation system, non-sterile [id number] FDA Start: 04-18-2020 MAS REDUCTION FIXATION ADD [...] & improved independence with ADL's/ IADL's. All half-way goals to be met in 6 weeks. Patient will report decreased pain levels no greater than a 1 during activity/ use and no night waking over a 5 day period. Patient will increase AROM of elbow and forearm to at least 0 extension of elbow and 80 supination for increased functional use with ADL's/ IADL's.. Patient will demonstrate increased strength of right fire captain marine to at least a 70 for increased [...] 05-05-2023 Functional status Patient at Baseline [facility] Work Phone: Mental Status Date Assessment Result Facility 05-05-2023 Cognitive function Cognitive Sta tus Patient at Baseline [facility] Work Phone: Evaluation note Note Date & Type Note Facility Evaluation note No assessment information availa ble [facility] Work Phone: Evaluation note Note Date & Type Note Facility Evaluation note Diagnosis Onset Date Abdominal pain acute Acute kidney injury acute Acute prerenal azotemia acut e Diabetes acute Intractable nausea and vomiting acute [facility] Work Phone: History and physical note Note Date & Type Note Facility History and physical note Note Date/Time May 03, 2023 9:02pm [facility] [address] [place] [address] Hospitalist H&P Signed 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 MR#: [id number] : 1970 Acct:[id number] Age/Sex: 52 / M Adm Date: 3 Loc: Room: [address] [place] [address] Type: ADM IN Attending Dr: Eldon Ambriz MD Copies to: MD Crow Strange,DO~ HPI DATE OF EXAMINATION: 05/03/23 CHIEF COMPLAINT: Nausea, vomiting HISTORY OF PRESENT ILLNESS: Mr. Aranda is a 52-year-old male with PMH of aky-vgidwof-cnbccarjz diabetes mellitus who presents to the emergency [...] % (Auto) 13.0 % (.) 05/03/23 14:06 [place] % (Auto) 6.1 % (.) 05/03/23 14:06 Eos % (Auto) 0.2 % (.) 05/03/23 14:06 Baso % (Auto) 0.3 % (.) 05/03/23 14:06 Nucleat RBC Rel Count 0.1 /100 WBC (0-0.5) 05/03/23 14:06 Neut # (Auto) 6.2 x10E3/uL (1.8-7.7) 05/03/23 14:06 Lymph # (Auto) 1.0 x10E3/uL (1.00-4.8) 05/03/23 14:06 [place] # (Auto) 0.5 x10E3/uL (0.0-0.8) 05/03/23 14:06 [...] pH 5.5 (5.0-9.0) 05/03/23 16:50 Ur Specific [place] 1.013 (1.001-1.030) 05/03/23 16:50 Urine Protein Negative [...] <Electronically signed by Eldon Ambriz MD> 05/03/232203 [facility] Work Phone: Hospital Discharge instructions Note Date & Type Note Facility Hospital Discharge instructions Additional Instructions [place] diet as tolerated start with clear fluids such as Gatorade Powerade then add toast and other bland foods Try to avoid anything spicy fatty or fried May take 1 Zofran every 8 hours for nausea vomiting May take nggz-mbh-rtmwfkr Tylenol or ibuprofen for discomfort Follow-up with family doctor and gastroenterology Return to the ER for more severe pain vomiting despite medication high fever or any other concerns [facility] Work Phone: Hospital Discharge instructions Note Date [...] but not limited to those listed previously. [facility] Work Phone: Progress note Note Date & Type Note Facility Progress note Note Date/Time May 04, 2023 12:51pm [facility] [address] [place] [address] Hospitalist Progress Note Signed 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 MR#: [id number] : 1970 Acct:[id number] Age/Sex: 52 / M Adm Date: 3 Loc: 3T Room: [address] [place] [address] Type: ADM IN Attending Dr: Eldon Ambriz [...] Lactated Ringers IV 05/02/24 20:44 125 mls/hr .[id number] MARIBEL Administration Insulin Aspart 0 units 05/03/23 [...] code Documented By: Eldon Ambriz MD [id number] Signed By: <Electronically signed by Eldon Ambriz MD> 05/04/23 1304 [facility] Work Phone: Discharge Instructions * Attachments The following attachments cannot be sent through Care Everywhere. * Dizziness, Uncertain Cause (Belarusian) * Fatigue, Managing (Belarusian) documented in this encounter* Instructions* Ivett Vargas [...] be sent through Care Everywhere. * Dehydration (Belarusian) * Pancreatitis: Acute: General Info (Belarusian) documented in this encounter* Instructions* Ivett Vargas MD - 05/31/2019 Patient medically cleared for incarceration Avoid alcohol in excess Will need psychiatric follow-up Return if worse * Attachments The following attachments cannot be sent through Care Everywhere. * Alcohol Intoxication: Acute (Belarusian) * Depression ([facility]) ([place]ian) * Suicidal Thoughts ([place]ian) documented in this encounter* Instructions* Leilani Monge MD - 05/26/2019 Avoid sun exposure. Drink plenty of fluids. See attached instruction for the high blood sugar diet controlled as advised. High magnesium diet and can buy magnesium tablets odod-smz-mxjiqfv 200 mg each take once a day. Continue on baby aspirin daily. Use Silvadene for sunburn once a day. * Attachments The following attachments cannot be sent through Care Everywhere. * Hyperglycemia: General Info (Belarusian) * Magnesium Test (Belarusian) documented in this encounter* Instructions* Ivett Vargas MD - 06/04/2019 You have right elbow sprain Follow up with [facility] in [place] in 1-2 days You will need a primary care, call the hospital and speak with the Manager Search Engine about obtaining an appointment Apply alternating ice and heat for 30 mins to right elbow Can remove vickey wrap when sleeping Return if worse * Attachments The following attachments cannot be sent through Care Everywhere. * Elbow: Exercises (Belarusian) * Elbow Sprain (Belarusian) documented in this encounter Assessments Diagnosis Fatigue, [...] VIEWS Hang Walter MD [address] [place] [address] Status Reason Specialty Diagnoses / Procedures Referred By Contact Referred To Contact Authorized Occupational Therapy Diagnoses Right elbow pain Loy Abreu DO [address] [place] [address] Status Reason Specialty Diagnoses / Procedures Referred By Contact Referred To Contact New Request Diagnoses Hyperglycemia Hypomagnesemia Elevated serum glucose with glucosuria Procedures ECG Leilani Monge MD [address] [place] [address] Summary Purpose Family History No Family History [...] - 09/24/2019 10:56 AM EDT [facility] [address] [facility] [address] [facility] [address] Loy Abreu DO [address] [place] [address] Visit Date: 09/24/2019 Patient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
[2024-01-04 07:53] VITALS: BP 146/96; PULSE 104; RESP 20; TEMP 36.2; O2SAT 97; BMI 25.2
[2024-01-04 08:00] LABS: Glucometer 297 mg/dL (74-106)
--- NOTE | 2024-01-04 08:11 | P.GSPRC_ITS ---
Date of procedure: 01/04/24 Indications for Procedure: nausea and vomiting weight loss Pre-op diagnosis: nausea and vomiting;weight Loss Post-op diagnosis: other (erosive esophagitis; small hiatal hernia; gastritis; normal colon) Procedure: EGD with biopsyantrum and distal esophagus Colonoscopy Findings: erosive esophagitis, small hiatal hernia, gastritis Normal colon Anesthesia: MAC Surgeon: Rudy Campbell Procedure Summary: PROCEDURE: The patient was taken to the Endoscopy Suite, placed in the left lateral recumbent position, given IV sedation as above. the Olympus EGD scope was advanced under direct visualization to the posterior pharynx, esophagus stomach through the pylorus into the 1st 2nd 3rd and 4th portions of the duodenum which were normal. The scope was returned to the scope retroflexed on itself looking at the GE junction which was normal. Patient had gastritis and moderate and multiple biopsies were taken and hemostasis maintained. The scope was then withdrawn to the distal esophagus where he has a small hiatal hernia and erosive esophagitis through the entire esophagus. Multiple biopsies were taken of the distal esophagus and some of the midesophagus as well. A rectal digital exam was performed. The sphincter tone was found to be normal. prostate was smooth nonenlarged without nodules.No rectal masses were appreciated. The Olympus video colonoscope was advanced under direct visualization to the rectum, sigmoid colon, descending colon, transverse colon and ascending colon to the ileocecal valve. The underside of the valve was seen. appendiceal lumen was visualized.The scope was slowly withdrawn with air being desufflated as it was withdrawn. prep was adequate to identify polyps greater than 5 mm.No gross tumors, polyps or diverticula were seen. The patient tolerated the procedure well and went to the Recovery Area in satisfactory condition. I recommend the patient use a bulk laxative on a regular basis and follow up as needed. I would recommend patient have repeat colonoscopy in ten years for screening purposes and I would recommend increasing Protonix to twice a day and adding sucralfate four times a day and decreasing alcohol use nonsteroidal anti- inflammatory drug use or caffeine use. Estimated blood loss (mL): 0 Complications: No Condition: stable Disposition: PACU
[2024-01-04] MEDS: LACTATED RINGER'S SOLUTION 1,000 ML 50 ML IV (08:15)
[2024-01-04 09:51] VITALS: BP 144/64; PULSE 90; RESP 14; TEMP 36.2; O2SAT 100
[2024-01-04 10:06] VITALS: BP 156/109; PULSE 107; RESP 16; O2SAT 99
[2024-01-04 10:21] VITALS: BP 156/98; PULSE 100; RESP 18; O2SAT 100
--- NOTE | 2024-01-04 10:23 | PC.NURSE ---
updates Dr. Poole on 1 time elevated blood pressure. Patient was coughing alot during post op . Blood pressure did come down alittle at discharge
[2024-01-06 15:34] LABS: H Pylori Tissue, Urease Negative
== END 2024-01-04 10:21 | disposition home or self-care (01) ==
PROVIDERS: PCP Internal Medicine; Visit Provider Surgery
PROC: (CPT 813; principal; 2024-01-04 09:00)
DX: R63.4 Abnormal weight loss (principal); K52.9 Noninfective gastroenteritis and colitis, unspecified; R11.2 Nausea with vomiting, unspecified; K22.10 Ulcer of esophagus without bleeding; K44.9 Diaphragmatic hernia without obstruction or gangrene; K29.70 Gastritis, unspecified, without bleeding; E11.9 Type 2 diabetes mellitus without complications; K21.00 Gastro-esophageal reflux disease with esophagitis, without bleeding; F17.290 Nicotine dependence, other tobacco product, uncomplicated; Z68.27 Body mass index [BMI] 27.0-27.9, adult
CPT/HCPCS: 43239; 45378; 36415; 82948; 87077; 88305; 88312; 88313; 99999; J2250; J2704

== ENCOUNTER 2024-11-27 09:57 | Emergency (ER) | payer BC, OTHER, SELFPAY ==
[2024-11-27 10:05] VITALS: BP 136/74; PULSE 71; TEMP 36.7; O2SAT 99; BMI 27.3
--- OUTSIDE RECORDS SUMMARY | 2024-11-27 10:05 | XMS_ITS | CCD ---
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 PCMP, TRPHP, PLIP, EGFRP #### [place] [address] MCH (RBC) [Entitic mass] 31.6 pg Normal 26.0-32.0 [facility] Comment on above: Performed By: #### P ANIO, PMG, PCCBC, PCMP, TRPHP, PLIP, EGFRP #### [place] [address] MCHC (RBC) [Mass/Vol] 33.5 g/dL Normal 31.0-35.0 [facility] Comment on above: Performed By: #### P ANIO, PMG, PCCBC, PCMP, TRPHP, PLIP, EGFRP #### [place] [address] MCV (RBC) [Entitic vol] 94.3 fL High 80.0-94.0 [facility] Comment on above: Performed By: #### P ANIO, PMG, PCCBC, PCMP, TRPHP, PLIP, EGFRP #### [facility] [address] [address] Monocytes/100 WBC (Bld) 7.0 % Normal 0.0-12.0 [facility] Comment on above: Performed By: #### P ANIO, PMG, PCCBC, PCMP, TRPHP, PLIP, EGFRP #### [facility] [address] [place] [address] PLATELET 205 thou/mm3 Normal 130-400 [facility] Comment on above: Performed By: #### P ANIO, PMG, PCCBC, PCMP, TRPHP, PLIP, EGFRP #### [facility] [address] [place] [address] Platelet mean volume (Bld) [Entitic vol] 10.0 fL Normal 9.4-12.4 [facility] Comment on above: Performed By: #### P ANIO, PMG, PCCBC, PCMP, TRPHP, PLIP, EGFRP #### [facility] [address] [place] [address] RBC 4.02 mill/mm3 Low 4.50-6.10 [facility] Comment on above: Performed By: #### P ANIO, PMG, PCCBC, PCMP, TRPHP, PLIP, EGFRP #### [facility] [address] [place] [address] SEGS 68.4 % Normal 43.0-75.0 [facility] Comment on above: Performed By: #### P ANIO, PMG, PCCBC, PCMP, TRPHP, PLIP, EGFRP #### [facility] 601 [place] [id number] WBC 6.6 thou/mm3 Normal 4.8-10.8 [facility] Comment on above: Performed By: #### P ANIO, PMG, PCCBC, PCMP, TRPHP, PLIP, EGFRP #### [facility] [address] [place] [address] COMP. METABOLIC PANELon 02-27 Calcium [Mass/Vol] 9.0 mg/dL Normal 8.5-10.1 [facility] Comment on above: Performed By: #### P ANIO, PMG, PCCBC, PCMP, TRPHP, PLIP, EGFRP #### [facility] 601 [facility] [address] [place] [address] Albumin [Mass/Vol] 3.5 g/dL Normal 3.4-5.0 [facility] Comment on above: Performed By: #### P ANIO, PMG, PCCBC, PCMP, TRPHP, PLIP, EGFRP #### [facility] 601 [facility] [address] [place] [address] ALP [Catalytic activity/Vol] 70 U/L Normal 46-116 [facility] Comment on above: Performed By: #### P ANIO, PMG, PCCBC, PCMP, TRPHP, PLIP, EGFRP #### [facility] 601 [facility] [address] [place] [address] ALT [Catalytic activity/Vol] 27 U/L Normal 14-63 [facility] Comment on above: Result Comment: Sulf asalazine and Sulfapyridine may interfere with testing and cause false results. For patients taking these medications, it is recommended that venipuncture occur prior to adminstra- tion of these drugs. Performed By: #### P ANIO, PMG, PCCBC, PCMP, TRPHP, PLIP, EGFRP #### [facility] 601 [facility] [address] [place] [address] AST [Catalytic activity/Vol] 21 U/L Normal 15-37 [facility] Comment on above: Result Comment: Sulf asalazine and Sulfapyridine may interfere with testing and cause false results. For patients taking these medications, it is recommended that venipuncture occur prior to adminstra- tion of these drugs. Performed By: #### P ANIO, PMG, PCCBC, PCMP, TRPHP, PLIP, EGFRP #### [facility] [address] [place] [address] Bilirubin [Mass/Vol] 0.8 mg/dL Normal 0.2-1.0 [facility] Comment on above: Performed By: #### P ANIO, PMG, PCCBC, PCMP, TRPHP, PLIP, EGFRP #### [facility] [address] [place] [address] Chloride [Moles/Vol] 101 mmol/L Normal 98-107 [facility] Comment on above: Performed By: #### P ANIO, PMG, PCCBC, PCMP, TRPHP, PLIP, EGFRP #### [facility] [address] [place] [address] CO2 [Moles/Vol] 29 mmol/L Normal 21-32 [facility] Comment on above: Performed By: #### P ANIO, PMG, PCCBC, PCMP, TRPHP, PLIP, EGFRP #### [address] [place] [address] Creatinine [Mass/Vol] 1.3 mg/dL Normal 0.6-1.3 [facility] Comment on above: Performed By: #### P ANIO, PMG, PCCBC, PCMP, TRPHP, PLIP, EGFRP #### [address] [place] [address] Glucose [Mass/Vol] 171 mg/dL High 74-106 [facility] Comment on above: Result Comment: Sulf asalazine and Sulfapyridine may interfere with testing and cause false results. For patients taking these medications, it is recommended that venipuncture occur prior to adminstra- tion of these drugs. Performed By: #### P ANIO, PMG, PCCBC, PCMP, TRPHP, PLIP, EGFRP #### [facility] [address] [place] [address] [address] [place] [address] Potassium [Moles/Vol] 4.5 mmol/L Normal 3.5-5.1 [facility] Comment on above: Performed By: #### P ANIO, PMG, PCCBC, PCMP, TRPHP, PLIP, EGFRP #### [facility] 601 [facility] [address] [place] [address] Protein [Mass/Vol] 7.3 g/dL Normal 6.4-8.2 [facility] Comment on above: Performed By: #### P ANIO, PMG, PCCBC, PCMP, TRPHP, PLIP, EGFRP #### [facility] 601 [facility] [address] [facility] [address] Sodium [Moles/Vol] 139 mmol/L Normal 136-145 [facility] Comment on above: Performed By: #### P ANIO, PMG, PCCBC, PCMP, TRPHP, PLIP, EGFRP #### [facility] [address] [place] [address] 224 [facility] [address] Urea nitrogen [Mass/Vol] 27 mg/dL High 7-18 [facility] Comment on above: Performed By: #### P ANIO, PMG, PCCBC, PCMP, TRPHP, PLIP, EGFRP #### [address] [address] Comprehensive metabolic 2000 panelon 03-22-2024 Albumin BCP dye [Mass/Vol] 3.5 [facility] [employer] ALP [Catalytic activity/Vol] 70 U/L 46 - 116 U/L [place] ALT With P-5'-P [Catalytic activity/Vol] 27 U/L 14 - 63 U/L [facility] [employer] Comment on above: Sulfasalazine and Carlin lfapyridine may interfere with testing and cause false results. For patients taking these medications, it is recommended that venipuncture occur prior to adminstra- tion of these drugs. Performed at [address] [address] AST With P-5'-P [Catalytic activity/Vol] 21 U/L 15 - 37 U/L [facility] [employer] Comment on above: Sulfasalazine and Carlin lfapyridine may interfere with testing and cause false results. For patients taking these medications, it is recommended that venipuncture occur prior to adminstra- tion of these drugs. Bilirubin [Mass/Vol] 0.8 mg/dL 0.2 - 1 .0 mg/dl [place] Calcium [Mass/Vol] 9.0 mg/dL 8.5 - 10. 1 mg/dl [place] Chloride [Moles/Vol] 101 mmol/L 98 - 10 7 meq/l [facility] CO2 [Moles/Vol] 29 mmol/L 21 - 32 meq/l [facility] Creatinine [Mass/Vol] 1.3 mg/dL 0.6 - 1.3 mg/dl [facility] Glucose [Mass/Vol] 171 mg/dL High 74 - 106 mg/dl [facility] Comment on above: Sulfasalazine and Carlin lfapyridine may interfere with testing and cause false results. For patients taking these medications, it is recommended that venipuncture occur prior to adminstra- tion of these drugs. Potassium [Moles/Vol] 4.5 mmol/L 3.5 - 5.1 meq/l [facility] Protein [Mass/Vol] 7.3 g/dL [facility] Sodium [Moles/Vol] 139 mmol/L 136 - 145 meq/l [facility] Urea nitrogen [Mass/Vol] 27 mg/dL High 7 - 18 mg/dl [facility] DRUG ABUSE SCREEN RAPIDon AMPHETAMINE/METHAMPH Negative Normal NEGATIVE [facility] Comment on above: Performed By: #### P TOX, PUA-R #### [facility] [address] [place] [address] BARBITURATE Negative Normal NEGATIVE [facility] Comment on above: Performed By: #### P TOX, PUA-R #### [facility] [address] [place] [address] Benzodiazepines Ql (U) Negative Normal NEGATIVE [facility] Comment on above: Performed By: #### P TOX, PUA-R #### [facility] [employer] [place] [address] [place] [address] Cannabinoids Screen Ql (U) Negative Normal NEGATIVE [facility] Comment on above: Performed By: #### P TOX, PUA-R #### [facility] [place] [address] [place] [address] COCAINE METABOLITE Positive Normal NEGATIVE [facility] Comment on above: Performed By: #### P TOX, PUA-R #### [facility] [address] [place] [address] Opiates Ql (U) Negative Normal NEGATIVE [facility] Comment on above: Performed By: #### P TOX, PUA-R #### [facility] [address] [place] [address] OXYCODONE Negative Normal NEGATIVE [facility] Comment on above: Performed By: #### P TOX, PUA-R #### [facility] [address] [place] [address] Phencyclidine Ql (U) Negative Normal NEGATIVE [facility] Comment on above: Result Comment: This is a new backup methodology which has increased cut-off concentrations for both Barbiturate and Benzodiazapine. A Negative result for a drug abuse screen test indicates that the drug concentration is below the following cutoffs: Amphetamine/Methamphetamine 1000 ng/ml Barbiturate 300 ng/ml Benzodiazapine 300 ng/ml Cannabinoids 50 ng/ml Cocaine Metabolite 300 ng/ml Opiates 300 ng/ml Oxycodone 100 ng/ml Phencyclidine 25 ng/ml A Positive result for a drug abuse screen test should be considered presumptive positive until/unless confirmed by another method. (Additional request) Quantitative values from a reference laboratory are available upon additional request. These results are for medical use only. Performed By: #### P TOX, PUA-R #### [facility] [address] [place] [address] EKG 12-LEADon 03-22-2024 EKG 12-LEAD 72 72 182 86 [phone] 25 -5 35 Normal sinus rhythm Normal ECG No previous ECGs available Confirmed by LEXI CHENEY ([id number]) on 03/22/2024 9:34:06 PM [email or web address] TestByDateTime?PatientID=[id number]&Date=22-03-2024&T onofre=[id number]&Test Type=ECG&Site=3&OutputType =PDF&Ext=PDF Normal [facility] GFR, ESTIMATED, PCACCon 02-27 GFR/1.73 sq M.predicted among non-blacks MDRD (S/P/Bld) [Vol rate/Area] 65 mL/min/{1.73_m2} Normal >60 [facility] Comment on above: Result Comment: Anabelle atric calculator link https://www.kidney.org/professionals/kdoqi/gfr_calculatorped Effective Aug 30, 2022 These results are not intended for use in patients <18 years of age. eGFR results are calculated without a race factor using the 2020 CKD-EPI equation. Careful clinical correlation is recommended, particularly when comparing to results calculated using previous equations. The CKD-EPI equation is less accurate in patients with extremes of muscle mass, extra-renal metabolism of creatinine, excessive creatine ingestion, or following therapy that affects renal tubular secretion. Performed By: #### P ANIO, PMG, PCCBC, PCMP, TRPHP, PLIP, EGFRP #### [facility] 601 [facility] [address] [facility] [address] Glomerular Filtration Rate, Estimatedon 03-22-2024 GFR/1.73 sq M.predicted MDRD (S/P/Bld) [Vol rate/Area] 65 mL/min/{1.73_m2} - [facility] Comment on above: Pediatric calculator link https://www.kidney.org/professionals/kdoqi/gfr_calculatorped Effective Aug 30, 2022 These results are not intended for use in patients <18 years of age. eGFR results are calculated without a race factor using the 2020 CKD-EPI equation. Careful clinical correlation is recommended, particularly when comparing to results calculated using previous equations. The CKD-EPI equation is less accurate in patients with extremes of muscle mass, extra-renal metabolism of creatinine, excessive creatine ingestion, or following therapy that affects renal tubular secretion. Performed at [facility] [address] [address] [facility] HIGH SENSITIVITY TROPONINon 03-22-2024 HIGH SENSITIVITY TROPONIN 11.6 pg/mL Normal 0.0-76.1 [facility] Comment on above: Result Comment: Fema le <51.4 pg/ml Normal >=51.4 pg/ml Elevated (99%) Consistent with myocardial damage Male <76.3 pg/ml Normal >=76.3 pg/ml Elevated (99%) Consistent with myocardial damage Other cardiac and non-cardiac conditions besides acute myocardial infarction can cause abnormal levels. The concentration of TNIH in a given specimen, as determined by assays from different manufacturers, can vary because of differences in assay methods and reagent specificity. Values obtained with different assay methods cannot be used interchangeably. Performed By: #### P ANIO, PMG, PCCBC, PCMP, TRPHP, PLIP, EGFRP #### [address] [address] LIPASEon 03-22-2024 Lipase [Catalytic activity/Vol] 53.0 U/L Normal 16.0-77.0 [facility] Comment on above: Result Comment: N ew test implemented, please refer to normal range Performed By: #### P ANIO, PMG, PCCBC, PCMP, TRPHP, PLIP, EGFRP #### [address] [address] Lipaseon 03-22-2024 Lipase [Catalytic activity/Vol] 53.0 U/L 16.0 - 77.0 U/L [facility] Comment on above: New test implemen billy, please refer to normal range Performed at [address] [address] MAGNESIUMon 03-22-2024 Magnesium [Mass/Vol] 1.3 mg/dL Low 1.8-2.4 [facility] Comment on above: Performed By: #### P ANIO, PMG, PCCBC, PCMP, TRPHP, PLIP, EGFRP #### [address] [place] [address] Magnesiumon 03-22-2024 Magnesium [Mass/Vol] 1.3 mg/dL Low 1.8 - 2 .4 mg/dl [facility] Comment on above: Performed at [address] [address] No Panel Informationon 03-22 Interpretation and review of laboratory results Abnormal [facility] Rapid drug screen, urineon 0 03-22-2024 Amphetamine+Methamphet amine Negative NEGATIVE [facility] Barbiturates Negative NEGATIVE [facility] Benzodiazepines Negative NEGATIVE [facility] Cannabinoids Negative NEGATIVE [facility] Cocaine Metabolite Positive NEGATIVE [facility] Opiates Negative NEGATIVE [facility] Oxycodone Negative NEGATIVE [facility] Comment on above: Performed at [facility] [address] [place] [address] Phencyclidine Negative NEGATIVE [facility] Comment on above: This is a new backup methodology which has increased cut-off concentrations for both Barbiturate and Benzodiazapine. A Negative result for a drug abuse screen test indicates that the drug concentration is below the following cutoffs: Amphetamine/Methamphetamine 1000 ng/ml Barbiturate 300 ng/ml Benzodiazapine 300 ng/ml Cannabinoids 50 ng/ml Cocaine Metabolite 300 ng/ml Opiates 300 ng/ml Oxycodone 100 ng/ml Phencyclidine 25 ng/ml A Positive result for a drug abuse screen test should be considered presumptive positive until/unless confirmed by another method. (Additional request) Quantitative values from a reference laboratory are available upon additional request. These results are for medical use only. [facility] Troponinon 03-22-2024 Troponin, High Sensitivity 11.6 pg/mL 0.0 - 76.1 pg/mL [facility] Comment on above: Female <51.4 pg/ml N ormal >=51.4 pg/ml Elevated (99%) Consistent with myocardial damage Male <76.3 pg/ml Normal >=76.3 pg/ml Elevated (99%) Consistent with myocardial damage Other cardiac and non-cardiac conditions besides acute myocardial infarction can cause abnormal levels. The concentration of TNIH in a given specimen, as determined by assays from different manufacturers, can vary because of differences in assay methods and reagent specificity. Values obtained with different assay methods cannot be used interchangeably. Performed at [facility] [address] [address] URINE REFLEX C + Son 024 AMORPHOUS NONE SEEN Normal none seen [facility] Comment on above: Performed By: #### P TOX, PUA-R #### [facility] [address] [address] BACTERIA NONE Normal few/none seen [facility] Comment on above: Performed By: #### P TOX, PUA-R #### [facility] [address] [place] [address] CASTS >15 HYALINE Normal none seen [facility] Comment on above: Performed By: #### P TOX, PUA-R #### [facility] [address] [place] [address] Crystals LM Nom (Urine sed) NONE SEEN Normal none seen [facility] Comment on above: Performed By: #### P TOX, PUA-R #### [facility] [address] [place] [address] EPITHELIAL 3-5 Normal 3-5/hpf [facility] Comment on above: Performed By: #### P TOX, PUA-R #### [facility] [address] [place] [address] MUCOUS THREADS Normal none seen [facility] Comment on above: Performed By: #### P TOX, PUA-R #### [facility] [address] [place] [address] RBC NONE Normal 0-2/hpf [facility] Comment on above: Performed By: #### P TOX, PUA-R #### [facility] [address] [place] [address] REFLEX URINE C + S NOT INDICATED Normal [facility]ar[facility] Comment on above: Performed By: #### P TOX, PUA-R #### [facility] [address] [place] [address] WBC NONE Normal 0-4/hpf [facility] Comment on above: Performed By: #### P TOX, PUA-R #### [facility] [address] [place] [address] Bilirubin Ql (U) MODERATE Abnormal [facility] Comment on above: Performed By: #### P TOX, PUA-R #### [facility] [address] [place] [address] CHARACTER CLEAR Normal CLEAR-SL CLOUD [facility] Comment on above: Performed By: #### P TOX, PUA-R #### [facility] [place] [address] [place] [address] Color (U) DARK YELLOW Abnormal STRAW-YELL OW [facility] Comment on above: Performed By: #### P TOX, PUA-R #### [facility] [place] [address] [place] [address] Glucose Ql (U) 100 mg/dl Abnormal NEGATIVE [facility] Comment on above: Performed By: #### P TOX, PUA-R #### [facility] [place] [address] [place] [address] Hemoglobin Ql (U) Negative Normal NEGATIVE [facility] Comment on above: Performed By: #### P TOX, PUA-R #### [facility] [address] [place] [address] Ketones Ql (U) [address] [facility] Comment on above: Performed By: #### P TOX, PUA-R #### [facility] [address] [place] [address] LEUKOCYTES Negative Normal NEGATIVE [facility] Comment on above: Performed By: #### P TOX, PUA-R #### [facility] [address] [place] [address] Nitrite Ql (U) Negative Normal NEGATIVE [facility] Comment on above: Performed By: #### P TOX, PUA-R #### [facility] [address] [place] [address] pH (U) 5.5 [pH] Normal 5.0-9.0 [facility] Comment on above: Performed By: #### P TOX, PUA-R #### [facility] [place] [address] [place] [address] Protein Ql (U) Negative Normal NEGATIVE [facility] Comment on above: Performed By: #### P TOX, PUA-R #### [facility] [address] [place] [address] Specific gravity (U) [Rel density] 1.025 Normal 1.002-1.[address] [facility] Comment on above: Performed By: #### P TOX, PUA-R #### [facility] [address] [facility] [address] Urobilinogen Qn (U) 0.2 {Nano'U}/dL Normal 0.0-1.0 [facility] Comment on above: Performed By: #### P TOX, PUA-R #### [facility] [address] [facility] [address] Urinalysis with Reflex to Cu ltureon 03-22-2024 Amorphous sediment LM Ql (Urine sed) NONE SEEN none seen [facility] [employer] Bacteria LM Ql (Urine sed) NONE few/none seen [facility] Bilirubin Ql (U) MODERATE Abnormal [facility] Casts LM.LPF (Urine sed) [#/Area] >15 HYALINE none seen /lpf [facility] [employer] [facility] Character (U) CLEAR CLEAR-SL CLOUD [facility] [employer] [facility] Color (U) DARK YELLOW Abnormal STRAW-YELL OW [facility] Crystals LM Nom (Vitr fld) NONE SEEN none seen [facility] Epithelial cells LM.HPF (Urine sed) [#/Area] 3-5 3-5/hpf /hpf [facility] Glucose Auto test strip Ql (U) 100 mg/dl Abnormal NEGATIVE [facility] Hemoglobin Auto test strip (U) [Mass/Vol] Negative NEGATIVE [facility] Interpretation and review of laboratory results Abnormal [facility] Ketones Auto test strip Ql (U) 15 NEGATIVE [facility] Leukocyte esterase Auto test strip Ql (U) Negative NEGATIVE [facility] Mucus Ql (Urine sed) THREADS none seen [facility] Nitrite Auto test strip Ql (U) Negative NEGATIVE [facility] pH (U) 5.5 [pH] 5.0 - 9.0 [facility] Protein (U) [Mass/Vol] Negative NEGAT DOMONIQUE mg/dl [facility] RBC LM.HPF (Urine sed) [#/Area] NONE 0-2/hpf /hpf [facility] REFLEX TO URINE C & S NOT INDICATED [facility] Comment on above: Performed at [place] [employer] [facility] [address] [place] [id number] Specific gravity (U) [Rel density] 1.025 1.002 - 1.030 [facility] [email or web address] Urobilinogen Qn (U) 0.2 [facility] [facility] Conservis WBC Auto test strip (U) [#/Vol] NONE 0-4/hpf /hpf [facility] Conservis TBH H PYLORI TISSUEon 2023 H PYLORI TISSUE, UREASE Negative [facility] Rudolph 01-04-2024 L Specimen: [id number] Received: 01/04/24 Status: SOUT Req Num: [id number] Spec Type: Surgical Subm Dr: Loy Campbell DO Tissues: A Colon Biopsy (ANTRUM BX) B Esophagus Biopsy (ESOPHAGUS BX) Procedures: PAS - LGRN, HE/4, Gross/Micro L4/2, PAS-Alcian Blue Age/ Patient Sex Location Account Attending Physician Justice Aranda JR 53/M LABELL [id number] Loy Campbell DO SPEC NUM: [id number] RECD: 01/04/24 STATUS: SOU REQ NUM: [id number] ANT: 01/04/[address]: Loy Campbell DO ENTERED: 01/04/[address] [facility] [address]: López,Dileep SPEC TYPE: Surgical DEPT: ALEXIS COBIAN ORDERED: PAS - LGRN, HE/4, Gross/Micro L4/2, PAS-Alcian Blue ORDERED: PAS - LGRN, HE/4, Gross/Micro L4/2, PAS-Alcian Blue Pathological Diagnosis A, antrum biopsy: -Antral mucosa with mild chronic reactive gastropathy, including mildly associated edema and congestion in superficial lamina propria, otherwise without intestinal metaplasia, erosion, or any significant stromal chronic inflammation observed -Also no other specific features of Helicobacter infection per routine H E morphological assessment B, distal esophagus biopsy: -Squamocolumnar mucosa with patchy intermixed exudations and necrotizing degenerated acute inflammation, consistent with severe acute ulcerative esophagitis, and also at least focal erosive esophagitis, otherwise also with focal goblet cell change noted in 1 fragment (also per PAS-AB special stain), suggesting early Ochoa's metaplasia, otherwise without obvious eosinophilic exocytosis, or any squamous or glandular dysplasia identified -PASF special stain is also negative for obviously identified fungal elements or jorge esophagitis (only rare degenerated or contaminated yeasts are suspected) Specimen: [id number] Received: 01/04/24 Status: KEITH Krause Num: [id number] Spec Type: Surgical Subm Dr: Loy Campbell DO Tissues: A Colon Biopsy (ANTRUM BX) B Esophagus Biopsy (ESOPHAGUS BX) Procedures: PAS - LGRN, HE/4, Gross/Micro L4/2, PAS-Alcian Blue 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 [id number] (Continued) Specimen: [id number] Received: 01/04/24 (Continued) Signed (signature on file) Rito Haney MD 01/15/24 3720 Specimen: [id number] Received: 01/04/24 Status: KEITH Krause Num: [id number] Spec Type: Surgical Subm Dr: Loy Campbell DO Tissues: A Colon Biopsy (ANTRUM BX) B Esophagus Biopsy (ESOPHAGUS BX) Procedures: PAS - LGRN, HE/4, Gross/Micro L4/2, PAS-Alcian Blue Patient: ManojJustice Nenita HUITRON [id number] (Continued) Specimen: [id number] Received: 01/04/24 (Continued) Clinical Information Colitis, nausea, vomiting, small hiatal hernia, erosive esophagitis, gastritis, colonoscopy negative/poor prep Gross Description A. Received in formalin labeled with the patient's name, date of and antrum biopsy are two johns tissues averaging 0.3 cm. Entirely submitted in one cassette labeled A1. B. Received in formalin labeled with the patient's name, date of and distal esophagus biopsy are multiple johns tissues measuring 1.7 x 0.6 x 0.2 cm in aggregate. Entirely submitted in one cassette labeled B1. CPT Codes [id number] Specimen: [id number] Received: 01/04/24 Status: KEITH Krause Num: [id number] Spec Type: Surgical Subm Dr: Loy Campbell DO Tissues: A Colon Biopsy (ANTRUM BX) B Esophagus Biopsy (ESOPHAGUS BX) Procedures: VEGA LOPES, HE/4, Gross/Micro L4/2, PAS-Alcian Blue 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 [id number] (Continued) Signed (signature on file) Rito Haney MD 01/15/24 4481 [facility] Surgical PathologyOrdered By : Umu Mccormack on 01-04-2024 [facility] Alanine aminotransferase [En zymatic activity/volume] in Serum [...] Anion gap [Moles/Vol] 11.8 mmol/L Normal 6.0-15.0 [facility] Comment on above: Performed By: #### V BG #### Point of Care testing , Calcium [Mass/Vol] 9.3 mg/dL Normal 8.6-10.3 [facility] Comment on above: Performed By: #### V BG #### Point of Care testing , Chloride [Moles/Vol] 97 mmol/L Low 98-107 [facility] Comment on above: Performed By: #### V BG #### Point of Care testing , CO2 [Moles/Vol] 30.3 mmol/L Normal 21.0-31.0 [facility] Comment on above: Performed By: #### V BG #### Point of Care testing , Creatinine [Mass/Vol] 1.30 mg/dL Normal 0.70-1.[address] [facility] Comment on above: Performed By: #### V BG #### Point of Care testing , Creatinine Clr Calc Pharmacy 69.19 [facility] Comment on above: Performed By: #### V BG #### Point of Care testing , GFR/1.73 sq M.predicted MDRD (S/P/Bld) [Vol rate/Area] mL/min/{1.73_m2} Normal [facility] Comment on above: Performed By: #### V BG #### Point of Care testing , Glucose [Mass/Vol] 181 mg/dL High 70-100 [facility] Comment on above: Result Comment: [place] Glucose Reference Range is dependent on time and content of last meal. Glucose of more than 200 mg/dL in a nonstressed, ambulatory subject supports the diagnosis of Diabetes Mellitus. ADA recommended reference range Performed By: #### V BG #### Point of Care testing , Potassium [Moles/Vol] 4.1 mmol/L Normal 3.5-5.[address] [facility] Comment on above: Performed By: #### V BG #### Point of Care testing , Sodium [Moles/Vol] 135 mmol/L Low 136-145 [facility] Comment on above: Performed By: #### V BG #### Point of Care testing , Urea nitrogen [Mass/Vol] 23 mg/dL Normal 7-25 [facility] Comment on above: Performed By: #### V BG #### Point of Care testing , Basophils Auto (Bld) [#/Vol] Ordered By: Kourtney [...] on 08-15-2023 Bilirubin [Mass/Vol] 1.1 mg/dL 0.3-1.0 [facility] Calcium [Mass/volume] in Ser um or PlasmaOrdered By: Kourtney Samson on 08-15-2023 Calcium [Mass/Vol] 9.3 mg/dL 8.6-10.3 [facility] Carbon dioxide, total [Moles /volume] in Serum or PlasmaOrdered By: Kourtney Samson on 08-15-2023 CO2 [Moles/Vol] 30.3 mmol/L 21.0-31.0 [facility] Chloride [Moles/volume] in S tino or PlasmaOrdered By: Kourtney Samson on 08-15-2023 Chloride [Moles/Vol] 97 mmol/L 98-107 [facility] Complete Blood Count Auto Di ffon 08-15-2023 Basophils (Bld) [#/Vol] 0.1 10*3/uL Normal 0.0-0.2 [facility] Comment on above: Result Comment: PERF ORMED BY: [place] [address] PATHOLOGIST PRINTING MECHANIST ANIL GUAMAN M.D. Performed By: #### C MP, CBC #### [address] Basophils/100 WBC (Bld) 0.9 % Normal . [facility] Comment on above: Performed By: #### C MP, CBC #### [facility] [address] [place] [address] Eosinophils (Bld) [#/Vol] 0.1 10*3/uL Normal 0.0-0.45 [facility] Comment on above: Performed By: #### C MP, CBC #### [facility] [address] [place] [address] [place] Eosinophils/100 WBC (Bld) 1.6 % Normal . [facility] Comment on above: Performed By: #### C MP, CBC #### [facility] [address] Erythrocyte distribution width (RBC) [Ratio] 13.6 % Normal 12.0-14.8 [facility] Comment on above: Performed By: #### C MP, CBC #### [address] Hematocrit (Bld) [Volume fraction] 40.9 % Normal 38.8-50.0 [facility] Comment on above: Performed By: #### C MP, CBC #### [address] Hemoglobin (Bld) [Mass/Vol] 14.3 g/dL Normal 13.0-17.0 [facility] Comment on above: Performed By: #### C MP, CBC #### [address] Lymphocytes (Bld) [#/Vol] 2.4 10*3/uL Normal 1.00-4.8 [facility] Comment on above: Performed By: #### C MP, CBC #### [address] Lymphocytes/100 WBC (Bld) 38.6 % Normal . [facility] Comment on above: Performed By: #### C MP, CBC #### [address] MCH (RBC) [Entitic mass] 32.8 pg Normal 27.5-35.2 [facility] Comment on above: Performed By: #### C MP, CBC #### [address] MCV (RBC) [Entitic vol] 94.0 fL Normal 83.5-101 [facility] Comment on above: Performed By: #### C MP, CBC #### [address] Mean Corpuscular HGB Conc 34.9 g/dL Normal 32.5-35.6 [facility] Comment on above: Performed By: #### C MP, CBC #### [address] Monocytes (Bld) [#/Vol] 0.4 10*3/uL Normal 0.0-0.8 [facility] Comment on above: Performed By: #### C MP, CBC #### [address] Monocytes/100 WBC (Bld) 17.28 % Normal 0.00-20.00 [facility] Comment on above: Performed By: #### C MP, CBC #### [address] Monocytes/100 WBC (Bld) 7.2 % Normal . [facility] Comment on above: Performed By: #### C MP, CBC #### [address] Neutrophils (Bld) [#/Vol] 3.2 10*3/uL Normal 1.8-7.7 [facility] Comment on above: Performed By: #### C MP, CBC #### [address] Neutrophils/100 WBC (Bld) 51.7 % Normal . [facility] Comment on above: Performed By: #### C MP, CBC #### [address] NRBC% 0.1 /100{WBC} Normal 0-0.5 [facility] Comment on above: Performed By: #### C MP, CBC #### [address] Platelet mean volume (Bld) [Entitic vol] 8.3 fL Normal 6.6-10.1 [facility] Comment on above: Performed By: #### C MP, CBC #### [address] Platelets (Bld) [#/Vol] 202 10*3/uL Normal 150-450 [facility] Comment on above: Performed By: #### C MP, CBC #### [address] RBC (Bld) [#/Vol] 4.35 10*6/uL Normal 3.90-5.60 [facility] Comment on above: Performed By: #### C MP, CBC #### [address] WBC (Bld) [#/Vol] 6.2 10*3/uL Normal 4.1-10.5 [facility] Comment on above: Performed By: #### C MP, CBC #### [facility] [address] Creatinine [Mass/volume] in Serum or PlasmaOrdered By: Kourtney Samson on 08-15-2023 Creatinine [Mass/Vol] 1.30 mg/dL 0.70-1.[address] [facility] Eosinophils Auto (Bld) [#/Vo l]Ordered [...] 08-15-2023 Glucose [Mass/Vol] 181 mg/dL 70-100 [facility] Comment on above: ADA recommended refe [...] Albumin [Mass/Vol] 4.3 g/dL Normal 3.5-5.7 [facility] Comment on above: Performed By: #### V BG #### Point of Care testing , Albumin/Globulin [Mass ratio] 1.3 {ratio} Normal [facility] Comment on above: Performed By: #### V BG #### Point of Care testing , ALP [Catalytic activity/Vol] 66 U/L Normal 34-104 [facility] Comment on above: Performed By: #### V BG #### Point of Care testing , ALT [Catalytic activity/Vol] 13 U/L Normal 7-52 [facility] Comment on above: Performed By: #### V BG #### Point of Care testing , AST [Catalytic activity/Vol] 10 U/L Low 13-39 [facility] Comment on above: Performed By: #### V BG #### Point of Care testing , Bilirubin [Mass/Vol] 1.1 mg/dL High 0.3-1.0 [facility] Comment on above: Performed By: #### V BG #### Point of Care testing , Bilirubin,Indirect 0.9 mg/dL Normal [facility] Comment on above: Performed By: #### V BG #### Point of Care testing , Bilirubin.indirect [Mass/Vol] 0.20 mg/dL High 0.03-0.18 [facility] Comment on above: Performed By: #### V BG #### Point of Care testing , Globulin (S) [Mass/Vol] 3.3 g/dL Normal [facility] Comment on above: Performed By: #### V BG #### Point of Care testing , Protein [Mass/Vol] 7.6 g/dL Normal 6.4-8.9 [facility] Comment on above: Performed By: #### V BG #### Point of Care testing , Leukocytes [#/volume] correc billy for nucleated erythrocytes in Blood by Automated counOrdered By: Kourtney Samson on 08-15-2023 WBC corrected for nucl RBC Auto (Bld) [#/Vol] 6.2 10*3/uL 4.1-10.5 [facility] Lipaseon 08-15-2023 Lipase [Catalytic activity/Vol] 59.0 U/L Normal 11.0-82.0 [facility] Comment on above: Result Comment: PERF ORMED BY: [facility] [place] [address] PATHOLOGIST PRINTING MECHANIST ANIL GUAMAN M.D. Performed By: #### V BG #### Point of Care testing , Lipase [Enzymatic activity/v olume] in Serum or [...] 08-15-2023 MCHC (RBC) [Mass/Vol] 34.9 g/dL 32.5-35.[address] [facility] MCV Auto (RBC) [Entitic vol] Ordered By: Kourtney Samson on 08-15-2023 MCV (RBC) [Entitic vol] 94.0 fL 83.5-101 [facility] Monocyte distribution width [Entitic volume] in Blood by AutomatedOrdered By: Kourtney Samson on 08-15-2023 Monocyte distribution width Auto (Bld) [Entitic vol] 17.28 % 0.00-20.00 [facility] Monocytes Auto (Bld) [#/Vol] Ordered By: Kourtney Samson on 09-18-2023 Monocytes (Bld) [#/Vol] 0.4 10*3/uL 0.0-0.8 The [...] on 08-15-2023 Potassium [Moles/Vol] 4.1 mmol/L 3.5-5.[address] [facility] Protein [Mass/volume] in Ser um or PlasmaOrdered By: Kourtney Samson on 08-15-2023 Protein [Mass/Vol] 7.6 g/dL 6.4-8.9 [facility] RBC Auto (Bld) [#/Vol]Ordere d By: Kourtney Samson on 08-15-2023 RBC (Bld) [#/Vol] 4.35 10*6/uL 3.90-5.60 [facility] Serum or plasma albumin/glob ulin mass ratioOrdered By: Kourtney Samson on 08-15-2023 Albumin/Globulin [Mass ratio] 1.3 {ratio} [facility] Serum or plasma anion gap de terminationOrdered By: Kourtney Samson on 08-15-2023 Anion gap [Moles/Vol] 11.8 mmol/L 6.0-15.0 [facility] Serum or plasma non-glucuron idated bilirubin measurement (mass/volume)Ordered By: Kourtney Samson on 08-15-2023 Bilirubin.indirect [Mass/Vol] 0.9 mg/dL [facility] Sodium [Moles/volume] in Ser um or PlasmaOrdered By: Kourtney Samson on 08-15-2023 Sodium [Moles/Vol] 135 mmol/L 136-145 [facility] Urea nitrogen [Mass/volume] in Serum or PlasmaOrdered By: Kourtney Samson on 08-15-2023 Urea nitrogen [Mass/Vol] 23 mg/dL 7-25 [facility] WBC Auto (Bld) [#/Vol]Ordere d By: Kourtney Samson on 08-15-2023 WBC (Bld) [#/Vol] 6.2 10*3/uL 4.1-10.5 [facility] Alanine aminotransferase [En zymatic activity/volume] in [...] on 07-23-2023 Bilirubin [Mass/Vol] 0.8 mg/dL 0.3-1.0 [facility] Calcium [Mass/volume] in Ser um or PlasmaOrdered By: Grayson Duvall on 07-23-2023 Calcium [Mass/Vol] 9.3 mg/dL 8.6-10.3 [facility] Carbon dioxide, total [Moles /volume] in Serum or PlasmaOrdered By: Grayson Duvall on 07-23-2023 CO2 [Moles/Vol] 28.5 mmol/L 21.0-31.0 [facility] Chloride [Moles/volume] in S tino or PlasmaOrdered By: Grayson Duvall on 07-23-2023 Chloride [Moles/Vol] 95 mmol/L 98-107 [facility] Complete Blood Count Auto Di ffon 07-23-2023 Basophils (Bld) [#/Vol] 0.1 10*3/uL Normal 0.0-0.2 [facility] Comment on above: Result Comment: PERF ORMED BY: [place] [address] PATHOLOGIST PRINTING MECHANIST ANIL GUAMAN M.D. Performed By: #### C MP, CBC #### [facility] [address] Basophils/100 WBC (Bld) 0.8 % Normal . [facility] Comment on above: Performed By: #### C MP, CBC #### [facility] [address] [place] [address] [place] Eosinophils (Bld) [#/Vol] 0.1 10*3/uL Normal 0.0-0.45 [facility] Comment on above: Performed By: #### C MP, CBC #### [address] Eosinophils/100 WBC (Bld) 1.1 % Normal . [facility] Comment on above: Performed By: #### C MP, CBC #### [address] Erythrocyte distribution width (RBC) [Ratio] 13.1 % Normal 12.0-14.8 [facility] Comment on above: Performed By: #### C MP, CBC #### [address] Hematocrit (Bld) [Volume fraction] 39.0 % Normal 38.8-50.0 [facility] Comment on above: Performed By: #### C MP, CBC #### [address] Hemoglobin (Bld) [Mass/Vol] 13.6 g/dL Normal 13.0-17.0 [facility] Comment on above: Performed By: #### C MP, CBC #### [address] Lymphocytes (Bld) [#/Vol] 2.2 10*3/uL Normal 1.00-4.8 [facility] Comment on above: Performed By: #### C MP, CBC #### [address] Lymphocytes/100 WBC (Bld) 23.0 % Normal . [facility] Comment on above: Performed By: #### C MP, CBC #### [address] MCH (RBC) [Entitic mass] 32.5 pg Normal 27.5-35.2 [facility] Comment on above: Performed By: #### C MP, CBC #### [address] MCV (RBC) [Entitic vol] 93.2 fL Normal 83.5-101 [facility] Comment on above: Performed By: #### C MP, CBC #### [facility] [address] Mean Corpuscular HGB Conc 34.8 g/dL Normal 32.5-35.6 [facility] Comment on above: Performed By: #### C MP, CBC #### [facility] [address] [place] [address] [place] Monocytes (Bld) [#/Vol] 0.6 10*3/uL Normal 0.0-0.8 [facility] Comment on above: Performed By: #### C MP, CBC #### [address] Monocytes/100 WBC (Bld) 18.02 % Normal 0.00-20.00 [facility] Comment on above: Performed By: #### C MP, CBC #### [place] [address] [place] Monocytes/100 WBC (Bld) 6.7 % Normal . [facility] Comment on above: Performed By: #### C MP, CBC #### [facility] [address] [place] [address] [place] Neutrophils (Bld) [#/Vol] 6.5 10*3/uL Normal 1.8-7.7 [facility] Comment on above: Performed By: #### C MP, CBC #### [place] [address] [place] Neutrophils/100 WBC (Bld) 68.4 % Normal . [facility] Comment on above: Performed By: #### C MP, CBC #### [facility] [address] [place] [address] [place] NRBC% 0.0 /100{WBC} Normal 0-0.5 [facility] Comment on above: Performed By: #### C MP, CBC #### [address] Platelet mean volume (Bld) [Entitic vol] 8.5 fL Normal 6.6-10.1 [facility] Comment on above: Performed By: #### C MP, CBC #### [address] Platelets (Bld) [#/Vol] 235 10*3/uL Normal 150-450 [facility] Comment on above: Performed By: #### C MP, CBC #### [address] RBC (Bld) [#/Vol] 4.18 10*6/uL Normal 3.90-5.60 [facility] Comment on above: Performed By: #### C MP, CBC #### [address] WBC (Bld) [#/Vol] 9.5 10*3/uL Normal 4.1-10.5 [facility] Comment on above: Performed By: #### C MP, CBC #### [address] Comprehensive Metabolic Pane rudolph 07-23-2023 Albumin [Mass/Vol] 4.7 g/dL Normal 3.5-5.7 [facility] Comment on above: Performed By: #### C MP, CBC #### [address] Albumin/Globulin [Mass ratio] 1.4 {ratio} Normal [facility] Comment on above: Performed By: #### C MP, CBC #### [address] ALP [Catalytic activity/Vol] 65 U/L Normal 34-104 [facility] Comment on above: Performed By: #### C MP, CBC #### [address] ALT [Catalytic activity/Vol] 19 U/L Normal 7-52 [facility] Comment on above: Performed By: #### C MP, CBC #### [address] Anion gap [Moles/Vol] 16.3 mmol/L High 6.0-15.0 [facility] Comment on above: Performed By: #### C MP, CBC #### [facility] [address] AST [Catalytic activity/Vol] 16 U/L Normal 13-39 [facility] Comment on above: Performed By: #### C MP, CBC #### [facility] [address] Bilirubin [Mass/Vol] 0.8 mg/dL Normal 0.3-1.0 [facility] Comment on above: Performed By: #### C MP, CBC #### [facility] [address] Calcium [Mass/Vol] 9.3 mg/dL Normal 8.6-10.3 [facility] Comment on above: Performed By: #### C MP, CBC #### [facility] [address] [place] [address] [place] Chloride [Moles/Vol] 95 mmol/L Low 98-107 [facility] Comment on above: Performed By: #### C MP, CBC #### [facility] [address] [place] [address] [place] CO2 [Moles/Vol] 28.5 mmol/L Normal 21.0-31.0 [facility] Comment on above: Performed By: #### C MP, CBC #### [facility] [address] Creatinine [Mass/Vol] 1.08 mg/dL Normal 0.70-1.[address] [facility] Comment on above: Performed By: #### C MP, CBC #### [facility] [address] [place] [address] [place] Creatinine Clr Calc Pharmacy 83.28 Normal [facility] Comment on above: Result Comment: PERF ORMED BY: [place] [address] PATHOLOGIST PRINTING MECHANIST ANIL GUAMAN M.D. Performed By: #### C MP, CBC #### [facility] [address] GFR/1.73 sq M.predicted MDRD (S/P/Bld) [Vol rate/Area] mL/min/{1.73_m2} [facility] Comment on above: Performed By: #### C MP, CBC #### [facility] [address] Globulin (S) [Mass/Vol] 3.3 g/dL [facility] Comment on above: Performed By: #### C MP, CBC #### [facility] [address] Glucose [Mass/Vol] 164 mg/dL High 70-100 [facility] Comment on above: Result Comment: [facility] Glucose Reference Range is dependent on time and content of last meal. Glucose of more than 200 mg/dL in a nonstressed, ambulatory subject supports the diagnosis of Diabetes Mellitus. ADA recommended reference range Performed By: #### C MP, CBC #### [address] Potassium [Moles/Vol] 3.8 mmol/L Normal 3.5-5.[address] [facility] Comment on above: Performed By: #### C MP, CBC #### [address] Protein [Mass/Vol] 8.0 g/dL Normal 6.4-8.9 [facility] Comment on above: Performed By: #### C MP, CBC #### [place] [address] [place] Sodium [Moles/Vol] 136 mmol/L Normal 136-145 [facility] Comment on above: Performed By: #### C MP, CBC #### [place] [address] [place] Urea nitrogen [Mass/Vol] 14 mg/dL Normal 7-25 [facility] Comment on above: Performed By: #### C MP, CBC #### [place] [address] [place] Creatinine [Mass/volume] in Serum or PlasmaOrdered By: Grayson Duvall on 07-23-2023 Creatinine [Mass/Vol] 1.08 mg/dL 0.70-1.[address] 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 MCV Auto (RBC) [Entitic vol] [...] on 07-23-2023 Potassium [Moles/Vol] 3.8 mmol/L 3.5-5.[address] [facility] Protein [Mass/volume] in Ser um or PlasmaOrdered By: Grayson Duvall on 07-23-2023 Protein [Mass/Vol] 8.0 g/dL 6.4-8.9 [facility] RBC Auto (Bld) [#/Vol]Ordere d By: Graysno Duvall on 07-23-2023 RBC (Bld) [#/Vol] 4.18 10*6/uL 3.90-5.60 [facility] Serum or plasma albumin/glob ulin mass ratioOrdered By: Grayson Duvall on 07-23-2023 Albumin/Globulin [Mass ratio] 1.4 {ratio} [facility] Serum or plasma anion gap de terminationOrdered By: Grayson Duvall on 07-23-2023 Anion gap [Moles/Vol] 16.3 mmol/L 6.0-15.0 [facility] Sodium [Moles/volume] in Ser um or PlasmaOrdered By: Grayson Duvall on 07-23-2023 Sodium [Moles/Vol] 136 mmol/L 136-145 [facility] Troponin I High Sensitivityo n 07-23-2023 Troponin I High Sensitivity 6.6 pg/mL Normal 0.0-20.0 [facility] Comment on above: Result Comment: PERF ORMED BY: [facility] [address] [place] [address] PATHOLOGIST PRINTING MECHANIST ANIL GUAMAN M.D. 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 COMPARISON: Chest 06/24/2023 FINDINGS: Heart normal size. Lungs are clear. No free air. XR/XR chest 2V* IMPRESSION: NO ACUTE CARDIOPULMONARY ABNORMALITY. Impression dictated by: Stevie Flores Jr., D.O.07/23/2023 10:31 AM Dictation Location: [place] [address] Transcribed By: [facility] 07/23/23 1031 Dictated By: Stevie Flores [...] 06-30 Beta Hydroxybuterate < 0.10 Normal 0.02-0.27 [facility] Comment on above: Result Comment: PERF ORMED BY: [place] [address] PATHOLOGIST PRINTING MECHANIST ANIL GUAMAN M.D. Performed By: #### L IPASE, OB #### [address] Beta hydroxybutyrate [Moles/ volume] in Serum or PlasmaOrdered By: Chen Acosta on 06-30-2023 Beta hydroxybutyrate [Moles/Vol] < 0.10 mmol/L 0.02-0.27 [facility] Bilirubin Test strip Ql (U)O rdered By: Chen Acosta on 06-30-2023 Bilirubin Ql (U) Negative Negative [facility] Bilirubin.total [Mass/volume ] in Serum or PlasmaOrdered By: Chen Acosta on 06-30-2023 Bilirubin [Mass/Vol] 0.5 mg/dL 0.3-1.0 [facility] Calcium [Mass/volume] in Ser um or PlasmaOrdered By: Chen Acosta on 06-30-2023 Calcium [Mass/Vol] 9.2 mg/dL 8.6-10.3 [facility] Carbon dioxide, total [Moles /volume] in Serum or PlasmaOrdered By: Chen Acosta on 06-30-2023 CO2 [Moles/Vol] 26.7 mmol/L 21.0-31.0 [facility] Chloride [Moles/volume] in S tino or PlasmaOrdered By: Chen Acosta on 06-30-2023 Chloride [Moles/Vol] 106 mmol/L 98-107 [facility] Color Auto (U)Ordered By: Me adryan Acosta on 06-30-2023 Color (U) Yellow Yellow [facility] Complete Blood Count Auto Di ffon 06-30-2023 Basophils (Bld) [#/Vol] 0.1 10*3/uL Normal 0.0-0.2 [facility] Comment on above: Result Comment: PERF ORMED BY: [place] [address] PATHOLOGIST PRINTING MECHANIST ANIL GUAMAN M.D. Performed By: #### L IPASE BHOB #### [address] Basophils/100 WBC (Bld) 2.0 % Normal . [facility] Comment on above: Performed By: #### L IPASE, BHOB #### [address] Eosinophils (Bld) [#/Vol] 0.1 10*3/uL Normal 0.0-0.45 [facility] Comment on above: Performed By: #### L IPASE, BHOB #### [place] [address] [place] Eosinophils/100 WBC (Bld) 1.7 % Normal . [facility] Comment on above: Performed By: #### L IPASE, BHOB #### [address] Erythrocyte distribution width (RBC) [Ratio] 12.9 % Normal 12.0-14.8 [facility] Comment on above: Performed By: #### L IPASE, BHOB #### [address] Hematocrit (Bld) [Volume fraction] 36.5 % Low 38.8-50.0 [facility] Comment on above: Performed By: #### L ROSA ELENA MERCADOOB #### [address] Hemoglobin (Bld) [Mass/Vol] 12.8 g/dL Low 13.0-17.0 [facility] Comment on above: Performed By: #### L ROSA ELENA MERCADOOB #### [address] Lymphocytes (Bld) [#/Vol] 1.6 10*3/uL Normal 1.00-4.8 [facility] Comment on above: Performed By: #### L ROSA ELENA MERCADOOB #### [address] Lymphocytes/100 WBC (Bld) 33.5 % Normal . [facility] Comment on above: Performed By: #### L ROSA ELENA MERCADOOB #### [address] MCH (RBC) [Entitic mass] 32.5 pg Normal 27.5-35.2 [facility] Comment on above: Performed By: #### L ROSA ELENA MERCADOOB #### [address] MCV (RBC) [Entitic vol] 92.7 fL Normal 83.5-101 [facility] Comment on above: Performed By: #### L ROSA ELENA MERCADOOB #### [address] Mean Corpuscular HGB Conc 35.0 g/dL Normal 32.5-35.6 [facility] Comment on above: Performed By: #### L ROSA ELENA MERCADOOB #### [address] Monocytes (Bld) [#/Vol] 0.3 10*3/uL Normal 0.0-0.8 [facility] Comment on above: Performed By: #### L ROSA ELENA MERCADOOB #### [place] [address] [place] Monocytes/100 WBC (Bld) 17.72 % Normal 0.00-20.00 [facility] Comment on above: Performed By: #### L KAMILLA MERCADO #### [facility] [address] Monocytes/100 WBC (Bld) 6.8 % Normal . [facility] Comment on above: Performed By: #### L KAMILLA MERCADO #### [facility] [address] Neutrophils (Bld) [#/Vol] 2.8 10*3/uL Normal 1.8-7.7 [facility] Comment on above: Performed By: #### L KAMILLA MERCADO #### [address] Neutrophils/100 WBC (Bld) 56.0 % Normal . [facility] Comment on above: Performed By: #### L KAMILLA MERCADO #### [address] NRBC% 0.1 /100{WBC} Normal 0-0.5 [facility] Comment on above: Performed By: #### L KAMILLA MERCADO #### [address] Platelet mean volume (Bld) [Entitic vol] 8.7 fL Normal 6.6-10.1 [facility] Comment on above: Performed By: #### L KAMILLA MERCADO #### [address] Platelets (Bld) [#/Vol] 196 10*3/uL Normal 150-450 [facility] Comment on above: Performed By: #### L KAMILLA MERCADO #### [address] RBC (Bld) [#/Vol] 3.94 10*6/uL Normal 3.90-5.60 [facility] Comment on above: Performed By: #### L KAMILLA MERCADO #### [address] [place] [address] [place] WBC (Bld) [#/Vol] 4.9 10*3/uL Normal 4.1-10.5 [facility] Comment on above: Performed By: #### L IPASE, BHOB #### [facility] [address] Comprehensive Metabolic Pane rudolph 06-30-2023 Albumin [Mass/Vol] 4.2 g/dL Normal 3.5-5.7 [facility] Comment on above: Performed By: #### L IPASE, BHOB #### [address] Albumin/Globulin [Mass ratio] 1.4 {ratio} Normal [facility] Comment on above: Performed By: #### L IPASE, BHOB #### [address] ALP [Catalytic activity/Vol] 59 U/L Normal 34-104 [facility] Comment on above: Performed By: #### L IPASE, BHOB #### [address] ALT [Catalytic activity/Vol] 19 U/L Normal 7-52 [facility] Comment on above: Performed By: #### L IPASE, BHOB #### [address] Anion gap [Moles/Vol] 10.6 mmol/L Normal 6.0-15.0 [facility] Comment on above: Performed By: #### L IPASE, BHOB #### [address] AST [Catalytic activity/Vol] 14 U/L Normal 13-39 [facility] Comment on above: Performed By: #### L IPASE, BHOB #### [address] Bilirubin [Mass/Vol] 0.5 mg/dL Normal 0.3-1.0 [facility] Comment on above: Performed By: #### L IPASE, BHOB #### [facility] [address] [place] [id number] [place] Calcium [Mass/Vol] 9.2 mg/dL Normal 8.6-10.3 [facility] Comment on above: Performed By: #### L IPA, BHOB #### [facility] [address] [place] [address] [place] Chloride [Moles/Vol] 106 mmol/L Normal 98-107 [facility] Comment on above: Performed By: #### L IPASE BHOB #### [facility] [address] CO2 [Moles/Vol] 26.7 mmol/L Normal 21.0-31.0 [facility] Comment on above: Performed By: #### L IPASE BHOB #### [facility] [address] Creatinine [Mass/Vol] 0.88 mg/dL Normal 0.70-1.[address] [facility] Comment on above: Performed By: #### L IPA, BHOB #### [facility] [address] [place] [address] [place] Creatinine Clr Calc Pharmacy 102.21 [facility] Comment on above: Performed By: #### L ROSA ELENA MERCADOOB #### [facility] [address] [place] [address] [place] GFR/1.73 sq M.predicted MDRD (S/P/Bld) [Vol rate/Area] mL/min/{1.73_m2} [facility] Comment on above: Performed By: #### L IPA, BHOB #### [facility] [address] [place] [address] [place] Globulin (S) [Mass/Vol] 2.9 g/dL [facility] Comment on above: Performed By: #### L IPA, BHOB #### [facility] [address] [place] [address] [place] Glucose [Mass/Vol] 180 mg/dL High 70-100 [facility] Comment on above: Result Comment: [facility] Glucose Reference Range is dependent on time and content of last meal. Glucose of more than 200 mg/dL in a nonstressed, ambulatory subject supports the diagnosis of Diabetes Mellitus. ADA recommended reference range Performed By: #### L ROSA ELENA MERCADOOB #### [facility] [address] Potassium [Moles/Vol] 4.3 mmol/L Normal 3.5-5.[address] [facility] Comment on above: Performed By: #### L ROSA ELENA MERCADOOB #### [facility] [address] Protein [Mass/Vol] 7.1 g/dL Normal 6.4-8.9 [facility] Comment on above: Performed By: #### L ROSA ELENA MERCADOOB #### [address] Sodium [Moles/Vol] 139 mmol/L Normal 136-145 [facility] Comment on above: Performed By: #### L ROSA ELENA MERCADOOB #### [facility] [address] [place] [id number] [place] Urea nitrogen [Mass/Vol] 17 mg/dL Normal 7-25 [facility] Comment on above: Performed By: #### L ROSA ELENA MERCADOOB #### [place] [id number] [facility] Creatinine [Mass/volume] in Serum or PlasmaOrdered By: Chen Acosta on 06-30-2023 Creatinine [Mass/Vol] 0.88 mg/dL 0.70-1.[address] [facility] ECG 12 lead ECGon 06-30-2023 ECG 12 lead ECG [facility] Main [place] [address] [place] [address] Electrocardiograph Report Signed 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 MR#: [id number] : 1970 Acct:[id number] Age/Sex: 53 / M ADM Date: 06/30/23 Loc: ER Room: Type: [facility] ER Attending Dr: Ordering Provider: Chen [...] Inferior leads Confirmed by ERROL DELGADO DO ([id number]) on 06/30/2023 3:13:21 PM Referred By: Electronically [...] on 06-30-2023 Glucose [Mass/Vol] 173 mg/dL [facility] Comment on above: Random Glucose Refer ence Range is dependent on time and content of last meal. Glucose of more than 200 mg/dL in a nonstressed, ambulatory subject supports the diagnosis of Diabetes Mellitus. Glucose Poct Glucometerson 0 06-30-2023 Commemt1 Glu2: Cleaned Meter Normal [facility] Comment on above: Result Comment: PERF ORMED BY: [facility] [address] [place] [address] PATHOLOGIST PRINTING MECHANIST ANIL GUAMAN M.D. Performed By: #### G LULS #### Point of Care testing , Glucose [Mass/Vol] 173 mg/dL Normal [facility] Comment on above: Result Comment: [place] [facility] Glucose Reference Range is dependent on time and content of last meal. Glucose of more than 200 mg/dL in a nonstressed, ambulatory subject supports the diagnosis of Diabetes Mellitus. Performed By: #### G LULS #### Point of Care testing , Glucose [Mass/volume] in Ser um or PlasmaOrdered By: Chen Acosta on 06-30-2023 Glucose [Mass/Vol] 180 mg/dL 70-100 [facility] Comment on above: ADA recommended refe [...] 06-30-2023 Ketones (U) [Mass/Vol] Negative Negative [facility] - Chemistry and C hemistry - challengeOrdered By: Chen Acosta on 06-30-2023 CO2 [Moles/Vol] 23.3 mmol/L 24.0-29.0 [facility] HCO3 (Bld) [Moles/Vol] 22.0 mmol/L 23.0-29.0 [facility] Leukocytes [#/volume] correc billy for nucleated [...] 06-30-2023 MCHC (RBC) [Mass/Vol] 35.0 g/dL 32.5-35.[address] [facility] MCV Auto (RBC) [Entitic vol] [...] at 10:56 Blood Gas Sample Site Venous [facility] FiO2 21 % [facility] [...] on 06-30-2023 Potassium [Moles/Vol] 4.3 mmol/L 3.5-5.[address] [facility] Protein Auto test strip (U) [Mass/Vol]Ordered By: Chen Acosta on 06-30-2023 Protein (U) [Mass/Vol] Negative Negative [facility] Protein [Mass/volume] in Ser um or PlasmaOrdered By: Chen Acosta on 06-30-2023 Protein [Mass/Vol] 7.1 g/dL 6.4-8.9 [facility] RBC Auto (Bld) [#/Vol]Ordere d By: Chen Acosta on 06-30-2023 RBC (Bld) [#/Vol] 3.94 10*6/uL 3.90-5.60 [facility] Serum or plasma albumin/glob ulin mass ratioOrdered By: Chen Acosta on 06-30-2023 Albumin/Globulin [Mass ratio] 1.4 {ratio} [facility] Serum or plasma anion gap de terminationOrdered By: Chen Acosta on 06-30-2023 Anion gap [Moles/Vol] 10.6 mmol/L 6.0-15.0 [facility] Sodium [Moles/volume] in Ser um or PlasmaOrdered By: Chen Aocsta on 06-30-2023 Sodium [Moles/Vol] 139 mmol/L 136-145 [facility] Specific gravity Auto test s trip (U) [Rel density]Ordered By: Chen Acosta on 06-30-2023 Specific gravity (U) [Rel density] 1.020 1.001-1.03 0 [facility] Urea nitrogen [Mass/volume] in Serum or PlasmaOrdered By: Chen Acosta on 06-30-2023 Urea nitrogen [Mass/Vol] 17 mg/dL 7-25 [facility] Urinalysison 06-30-2023 Appearance (U) Clear Normal Clear [facility] Comment on above: Order Comment: Name Collection Type:: Clean-Voided Midstream Performed By: #### G LULS #### Point of Care testing , Bilirubin,Urine Negative Normal Negative [facility] Comment on above: Order Comment: Name Collection Type:: Clean-Voided Midstream Performed By: #### G LULS #### Point of Care testing , Color (U) Yellow Normal Yellow [facility] Comment on above: Order Comment: Name Collection Type:: Clean-Voided Midstream Performed By: #### G LULS #### Point of Care testing , Glucose Ql (U) 500 mg/dL High Normal [facility] Comment on above: Order Comment: Name Collection Type:: Clean-Voided Midstream Performed By: #### G LULS #### Point of Care testing , Ketones Ql (U) Negative Normal Negative [facility] Comment on above: Order Comment: Name Collection Type:: Clean-Voided Midstream Performed By: #### G LULS #### Point of Care testing , Leukocyte esterase Test strip Ql (U) Negative Normal Negative [facility] Comment on above: Order Comment: Name Collection Type:: Clean-Voided Midstream Performed By: #### G LULS #### Point of Care testing , Nitrite,Urine Negative Normal Negative [facility] Comment on above: Order Comment: Name Collection Type:: Clean-Voided Midstream Performed By: #### G LULS #### Point of Care testing , Occult Blood,Urine Negative Normal Negative [facility] Comment on above: Order Comment: Name Collection Type:: Clean-Voided Midstream Result Comment: PERF ORMED BY: [facility] [address] [place] [address] PATHOLOGIST PRINTING MECHANIST ANIL GUAMAN M.D. Performed By: #### G LULS #### Point of Care testing , pH (U) 5.5 [pH] Normal 5.0-9.0 [facility] Comment on above: Order Comment: Name Collection Type:: Clean-Voided Midstream Performed By: #### G LULS #### Point of Care testing , Protein,Urine Negative Normal Negative [facility] Comment on above: Order Comment: Name Collection Type:: Clean-Voided Midstream Performed By: #### G LULS #### Point of Care testing , Specificy Gary,Urine 1.020 Normal 1.001-1.03 0 [facility] Comment on above: Order Comment: Name Collection Type:: Clean-Voided Midstream Performed By: #### G LULS #### Point of Care testing , Urobilinogen,Urine Normal Normal Normal [facility] Comment on above: Order Comment: Name Collection Type:: Clean-Voided Midstream Performed By: #### G LULS #### Point of Care testing , Urine clarity by refractomet ry automatedOrdered By: [...] 3 CO2 [Moles/Vol] 23.3 mmol/L Low 24.0-29.0 [facility] Comment on above: Performed By: #### V BG #### Point of Care testing , HCO3 (Bld) [Moles/Vol] 22.0 mmol/L Low 23.0-29.0 [facility] Comment on above: Performed By: #### V BG #### Point of Care testing , Respiratory Critical Normal [facility] Comment on above: Result Comment: Crit ical Value called on: 06/30/2023 at 10:56 PERFORMED BY: [facility] [address] [place] [address] PATHOLOGIST PRINTING MECHANIST ANIL GUAMAN M.D. Performed By: #### V BG #### Point of Care testing , VBG Base Excess -3.1 mmol/L Low -3.0-3.0 [facility] Comment on above: Performed By: #### V BG #### Point of Care testing , VBG Draw Site Venous Normal [facility] Comment on above: Performed By: #### V BG #### Point of Care testing , VBG Frac Inspired O2 21 % Normal [facility] Comment on above: Performed By: #### V BG #### Point of Care testing , VBG Oxygen Saturation 77.2 % High 73.0-76.[address] [facility] Comment on above: Performed By: #### V BG #### Point of Care testing , VBG PCO2 40.0 mm[Hg] Normal 38.0-50.0 [facility] Comment on above: Performed By: #### V BG #### Point of Care testing , VBG PH Venous PH 7.36 Normal 7.32-7.43 [facility] Comment on above: Performed By: #### V BG #### Point of Care testing , VBG PO2 39.4 mm[Hg] Normal 35.0-45.0 [facility] Comment on above: Performed By: #### V BG #### Point of Care testing , WBC Auto (Bld) [#/Vol]Ordere d By: Chen Acosta on 06-30-2023 WBC (Bld) [#/Vol] 4.9 10*3/uL 4.1-10.5 [facility] pH Auto test strip (U)Ordere d [...] Enzymatic activity/volume] in Serum or PlasmaOrdered By: David Khan on 06-24-2023 AST [Catalytic activity/Vol] 14 U/L 13-39 [facility] Automated erythrocytes count in urine sediment (number/area)Ordered By: David Bill on 06-24-2023 RBC Auto (Urine sed) [#/Area] 1-2 [HPF] 0-4 [facility] Automated leukocytes count i n urine sediment (number/area)Ordered By: David Bill on 06-24-2023 WBC Auto (Urine sed) [#/Area] 1-2 [HPF] 0-4 [facility] B-Type Natriuretic Peptideon 06-24-2023 Natriuretic peptide B (Bld) [Mass/Vol] 17.0 pg/mL Normal 5-100 [facility] Comment on above: Result Comment: PERF ORMED BY: [place] [address] PATHOLOGIST PRINTING MECHANIST ANIL GUAMAN M.D. Performed By: #### C MP, CBC #### [address] Basophils Auto (Bld) [#/Vol] Ordered By: Davidfátima Khan on 06-24-2023 Basophils (Bld) [#/Vol] 0.1 10*3/uL 0.0-0.2 [facility] Basophils/100 WBC Auto (Bld) Ordered By: [facility] Bill on 06-24-2023 Basophils/100 WBC (Bld) 0.7 % . [facility] Bilirubin Test strip Ql (U)O rdered By: David Khan on 06-24-2023 Bilirubin Ql (U) 1+ Negative [facility] Bilirubin.total [Mass/volume ] in Serum or PlasmaOrdered By: aDvid Khan on 06-24-2023 Bilirubin [Mass/Vol] 0.6 mg/dL 0.3-1.0 [facility] Calcium [Mass/volume] in Ser um or PlasmaOrdered By: David Ruizin on 06-24-2023 Calcium [Mass/Vol] 8.8 mg/dL 8.6-10.3 [facility] Carbon dioxide, total [Moles /volume] in Serum or PlasmaOrdered By: David Bill on 06-24-2023 CO2 [Moles/Vol] 26.1 mmol/L 21.0-31.0 [facility] Chloride [Moles/volume] in S tino or PlasmaOrdered By: David Bill on 06-24-2023 Chloride [Moles/Vol] 95 mmol/L 98-107 [facility] Color Auto (U)Ordered By: An am Bill on 06-24-2023 Color (U) Dark yellow Yellow [facility] Complete Blood Count Auto Di ffon 06-24-2023 Basophils (Bld) [#/Vol] 0.1 10*3/uL Normal 0.0-0.2 [facility] Comment on above: Result Comment: PERF ORMED BY: [place] [address] PATHOLOGIST PRINTING MECHANIST ANIL GUAMAN M.D. Performed By: #### C MP, CBC #### [address] Basophils/100 WBC (Bld) 0.7 % Normal . [facility] Comment on above: Performed By: #### C MP, CBC #### [address] Eosinophils (Bld) [#/Vol] 0.0 10*3/uL Normal 0.0-0.45 [facility] Comment on above: Performed By: #### C MP, CBC #### [address] Eosinophils/100 WBC (Bld) 0.4 % Normal . [facility] Comment on above: Performed By: #### C MP, CBC #### [address] Erythrocyte distribution width (RBC) [Ratio] 12.7 % Normal 12.0-14.8 [facility] Comment on above: Performed By: #### C MP, CBC #### [address] Hematocrit (Bld) [Volume fraction] 38.2 % Low 38.8-50.0 [facility] Comment on above: Performed By: #### C MP, CBC #### [address] Hemoglobin (Bld) [Mass/Vol] 13.4 g/dL Normal 13.0-17.0 [facility] Comment on above: Performed By: #### C MP, CBC #### [address] Lymphocytes (Bld) [#/Vol] 1.2 10*3/uL Normal 1.00-4.8 [facility] Comment on above: Performed By: #### C MP, CBC #### [address] Lymphocytes/100 WBC (Bld) 13.5 % Normal . [facility] Comment on above: Performed By: #### C MP, CBC #### [address] MCH (RBC) [Entitic mass] 33.0 pg Normal 27.5-35.2 [facility] Comment on above: Performed By: #### C MP, CBC #### [address] MCV (RBC) [Entitic vol] 94.0 fL Normal 83.5-101 [facility] Comment on above: Performed By: #### C MP, CBC #### [address] Mean Corpuscular HGB Conc 35.1 g/dL Normal 32.5-35.6 [facility] Comment on above: Performed By: #### C MP, CBC #### [address] Monocytes (Bld) [#/Vol] 0.5 10*3/uL Normal 0.0-0.8 [facility] Comment on above: Performed By: #### C MP, CBC #### [address] Monocytes/100 WBC (Bld) 19.27 % Normal 0.00-20.00 [facility] Comment on above: Performed By: #### C MP, CBC #### [facility] [address] Monocytes/100 WBC (Bld) 5.2 % Normal . [facility] Comment on above: Performed By: #### C MP, CBC #### [facility] [address] Neutrophils (Bld) [#/Vol] 7.0 10*3/uL Normal 1.8-7.7 [facility] Comment on above: Performed By: #### C MP, CBC #### [facility] [address] Neutrophils/100 WBC (Bld) 80.2 % Normal . [facility] Comment on above: Performed By: #### C MP, CBC #### [address] NRBC% 0.1 /100{WBC} Normal 0-0.5 [facility] Comment on above: Performed By: #### C MP, CBC #### [facility] [address] Platelet mean volume (Bld) [Entitic vol] 8.6 fL Normal 6.6-10.1 [facility] Comment on above: Performed By: #### C MP, CBC #### [facility] [address] [place] [address] [place] Platelets (Bld) [#/Vol] 204 10*3/uL Normal 150-450 [facility] Comment on above: Performed By: #### C MP, CBC #### [facility] [address] [place] [address] [place] RBC (Bld) [#/Vol] 4.07 10*6/uL Normal 3.90-5.60 [facility] Comment on above: Performed By: #### C MP, CBC #### [facility] [address] [place] [address] [place] WBC (Bld) [#/Vol] 8.7 10*3/uL Normal 4.1-10.5 [facility] Comment on above: Performed By: #### C MP, CBC #### [facility] [address] Comprehensive Metabolic Pane rudolph 06-24-2023 Albumin [Mass/Vol] 4.1 g/dL Normal 3.5-5.7 [facility] Comment on above: Performed By: #### C MP, CBC #### [address] Albumin/Globulin [Mass ratio] 1.4 {ratio} Normal [facility] Comment on above: Performed By: #### C MP, CBC #### [address] ALP [Catalytic activity/Vol] 62 U/L Normal 34-104 [facility] Comment on above: Performed By: #### C MP, CBC #### [facility] [address] [place] [address] ALT [Catalytic activity/Vol] 19 U/L Normal 7-52 [facility] Comment on above: Performed By: #### C MP, CBC #### [address] Anion gap [Moles/Vol] 14.6 mmol/L Normal 6.0-15.0 [facility] Comment on above: Performed By: #### C MP, CBC #### [facility] [address] [place] [address] AST [Catalytic activity/Vol] 14 U/L Normal 13-39 [facility] Comment on above: Performed By: #### C MP, CBC #### [facility] [address] [place] [address] Bilirubin [Mass/Vol] 0.6 mg/dL Normal 0.3-1.0 [facility] Comment on above: Performed By: #### C MP, CBC #### [facility] [address] [place] [address] Calcium [Mass/Vol] 8.8 mg/dL Normal 8.6-10.3 [facility] Comment on above: Performed By: #### C MP, CBC #### [facility] [address] [place] [address] [place] Chloride [Moles/Vol] 95 mmol/L Low 98-107 [facility] Comment on above: Performed By: #### C MP, CBC #### [facility] [address] CO2 [Moles/Vol] 26.1 mmol/L Normal 21.0-31.0 [facility] Comment on above: Performed By: #### C MP, CBC #### [facility] [address] Creatinine [Mass/Vol] 1.64 mg/dL High 0.70-1.[address] [facility] Comment on above: Performed By: #### C MP, CBC #### [facility] [address] [place] [address] [place] Creatinine Clr Calc Pharmacy 53.79 [facility] Comment on above: Result Comment: PERF ORMED BY: [place] [address] PATHOLOGIST PRINTING MECHANIST ANIL GUAMAN M.D. Performed By: #### C MP, CBC #### [address] GFR/1.73 sq M.predicted MDRD (S/P/Bld) [Vol rate/Area] 49.706 mL/min/{1.73_m2} [facility] Comment on above: Performed By: #### C MP, CBC #### [facility] [address] [place] [address] [place] Globulin (S) [Mass/Vol] 3.0 g/dL [facility] Comment on above: Performed By: #### C MP, CBC #### [facility] [address] Glucose [Mass/Vol] 412 mg/dL High 70-100 [facility] Comment on above: Result Comment: [place] Glucose Reference Range is dependent on time and content of last meal. Glucose of more than 200 mg/dL in a nonstressed, ambulatory subject supports the diagnosis of Diabetes Mellitus. ADA recommended reference range Performed By: #### C MP, CBC #### [facility] [address] [place] [address] [place] Potassium [Moles/Vol] 4.7 mmol/L Normal 3.5-5.[address] [facility] Comment on above: Performed By: #### C MP, CBC #### [facility] [address] [place] [address] [place] Protein [Mass/Vol] 7.1 g/dL Normal 6.4-8.9 [facility] Comment on above: Performed By: #### C MP, CBC #### [facility] [address] [place] [address] [place] Sodium [Moles/Vol] 131 mmol/L Low 136-145 [facility] Comment on above: Performed By: #### C MP, CBC #### [facility] [address] [place] [address] [place] Urea nitrogen [Mass/Vol] 26 mg/dL High 7-25 [facility] Comment on above: Performed By: #### C MP, CBC #### [facility] [address] [place] [address] [place] Creatinine [Mass/volume] in Serum or PlasmaOrdered By: David Khan on 06-24-2023 Creatinine [Mass/Vol] 1.64 mg/dL 0.70-1.[address] [facility] Dipstick and Microscopicon 0 06-24-2023 [...] testing , Hyaline Casts,Urine 9-19 High 0-8 [facility] Comment on above: Order Comment: Name Collection Type:: Clean-Voided Midstream Result Comment: PERF ORMED BY: [address] [place] [address] PATHOLOGIST PRINTING MECHANIST ANIL GUAMAN M.D. Performed By: #### V [...] , Occult Blood,Urine Negative Normal Negative [facility] Comment on above: Order Comment: Name Collection Type:: Clean-Voided Midstream Result Comment: PERF ORMED BY: [facility] [address] [facility] [place] [address] PATHOLOGIST PRINTING MECHANIST ANIL GUAMAN M.D. Performed By: #### V BG #### Point of Care testing , pH (U) 5.5 [pH] Normal 5.0-9.0 [facility] Comment on above: Order Comment: Name Collection Type:: Clean-Voided Midstream Performed By: #### V BG #### Point of Care testing , Protein (U) [Mass/Vol] 30 mg/dL High Negative [facility] Comment on above: Order Comment: Name Collection Type:: Clean-Voided Midstream Performed By: #### V BG #### Point of Care testing , RBC,Urine 1-2 Normal 0-4 [facility] Comment on above: Order Comment: Name Collection Type:: Clean-Voided Midstream Performed By: #### V BG #### Point of Care testing , Specificy Gary,Urine 1.029 Normal 1.001-1.03 0 [facility] Comment on above: Order Comment: Name Collection Type:: Clean-Voided Midstream Performed By: #### V BG #### Point of Care testing , Squamous Epithelial Cell,Urine 0-1 Normal 0-2 [facility] Comment on above: Order Comment: Name Collection Type:: Clean-Voided Midstream Performed By: #### V BG #### Point of Care testing , Urobilinogen,Urine Normal Normal Normal [facility] Comment on above: Order Comment: Name Collection Type:: Clean-Voided Midstream Performed By: #### V BG #### Point of Care testing , WBC,Urine 1-2 Normal 0-4 [facility] Comment on above: Order Comment: Name Collection Type:: Clean-Voided Midstream Performed By: #### V BG #### Point of Care testing , ECG 12 lead ECGon 06-24-2023 ECG 12 lead ECG [facility] [place] [address] Electrocardiograph Report Signed 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 Glucose of more than 200 mg/dL in a nonstressed, ambulatory subject supports the diagnosis of Diabetes Mellitus. Glucose Poct Glucometerson 0 06-24-2023 Glucose [Mass/Vol] 363 mg/dL Normal [facility] Comment on above: Result Comment: [place] Glucose Reference Range is dependent on time and content of last meal. Glucose of more than 200 mg/dL in a nonstressed, ambulatory subject supports the diagnosis of Diabetes Mellitus. PERFORMED BY: [address] [place] [address] PATHOLOGIST PRINTING MECHANIST ANIL GUAMAN M.D. Performed By: #### C MP, CBC #### [facility] [address] Glucose [Mass/volume] in Ser um or PlasmaOrdered By: David Khan on 06-24-2023 Glucose [Mass/Vol] 412 mg/dL 70-100 [facility] Comment on above: ADA recommended refe [...] on 06-24-2023 Ketones (U) [Mass/Vol] Trace Negative [facility] Laboratory - UrinalysisOrder ed By: David Khan on 06-24-2023 Hyaline casts LM Ql (Urine sed) 9-19 [LPF] 0-8 [facility] Leukocytes [#/volume] correc billy [...] 06-24-2023 MCHC (RBC) [Mass/Vol] 35.1 g/dL 32.5-35.[address] [facility] MCV Auto (RBC) [Entitic vol] [...] Test strip Ql (U)Ord ered By: David Kahn on 06-24-2023 Nitrite Ql (U) Negative Negative [facility] No Panel InformationOrdered By: David Khan on 06-24-2023 Estimated GFR (CKD-EPI) 49.706 mL/Min [facility] Creatinine Clearance (Chem 53.79 [facility] Nucleated erythrocytes [Pres ence] in Blood by Automated countOrdered By: David Ruizin on 06-24-2023 Nucleated RBC Auto Ql (Bld) 0.1 /100{WBC} 0-0.5 [facility] Platelet mean volume Auto (B ld) [Entitic vol]Ordered By: David Olsensain on 06-24-2023 Platelet mean volume (Bld) [Entitic vol] 8.6 fL 6.6-10.1 [facility] Platelets Auto (Bld) [#/Vol] Ordered By: David Olsensain on 06-24-2023 Platelets (Bld) [#/Vol] 204 10*3/uL 150-450 [facility] Potassium [Moles/volume] in Serum or PlasmaOrdered By: David Ruizin on 06-24-2023 Potassium [Moles/Vol] 4.7 mmol/L 3.5-5.[address] [facility] Protein Auto test strip (U) [Mass/Vol]Ordered By: David Khan on 06-24-2023 Protein (U) [Mass/Vol] 30 mg/dL Negative [facility] Protein [Mass/volume] in Ser um or PlasmaOrdered By: David Ruizin on 06-24-2023 Protein [Mass/Vol] 7.1 g/dL 6.4-8.9 [facility] RBC Auto (Bld) [#/Vol]Ordere d By: David Olsensain on 06-24-2023 RBC (Bld) [#/Vol] 4.07 10*6/uL 3.90-5.60 [facility] Serum or plasma albumin/glob ulin mass ratioOrdered By: David Ruizin on 06-24-2023 Albumin/Globulin [Mass ratio] 1.4 {ratio} [facility] Serum or plasma anion gap de terminationOrdered By: David Olsensain on 06-24-2023 Anion gap [Moles/Vol] 14.6 mmol/L 6.0-15.0 [facility] Sodium [Moles/volume] in Ser um or PlasmaOrdered By: David Khan on 06-24-2023 Sodium [Moles/Vol] 131 mmol/L 136-145 [facility] Specific gravity Auto test s trip (U) [Rel density]Ordered By: David Khan on 06-24-2023 Specific gravity (U) [Rel density] 1.029 1.001-1.03 0 [facility] Squamous epithelial cells de tection in urine sediment by light microscopyOrdered By: David Khan on 06-24-2023 Epithelial cells.squamous LM Ql (Urine sed) 0-1 [HPF] 0-2 [facility] Troponin I High Sensitivityo n 06-24-2023 Troponin I High Sensitivity 8.4 pg/mL Normal 0.0-20.0 [facility] Comment on above: Result Comment: PERF ORMED BY: [place] [address] PATHOLOGIST PRINTING MECHANIST ANIL GUAMAN M.D. Performed By: #### C MP, CBC #### [address] Troponin I.cardiac [Mass/vol ume] in Serum or Plasma by Detection limit <= 0.01 ng/Ordered By: Bucky Cheng on 06-24-2023 Troponin I.cardiac DL <= 0.01 ng/mL [Mass/Vol] 8.4 pg/mL 0.0-20.0 [facility] Urea nitrogen [Mass/volume] in Serum or PlasmaOrdered By: David Khan on 06-24-2023 Urea nitrogen [Mass/Vol] 26 mg/dL 7-25 [facility] Urine bacteria detection by automated methodOrdered By: David Khan on 06-24-2023 Bacteria Auto Ql (U) None seen None Seen [facility] Urine clarity by refractomet ry automatedOrdered By: [...] WBC (Bld) [#/Vol] 8.7 10*3/uL 4.1-10.5 [facility] XR chest 1V portableon 06-24 XR chest 1V portable [place] [address] XRay Report Signed 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 MR#: [id number] : 1970 Acct:[id number] Age/Sex: 52 / M ADM Date: 06/24/23 Loc: ER Room: Type: [facility] ER Attending Dr: Copies to: Bucky [...] Crow Parker M.D.06/24/2023 10:45 AM Dictation Location: [place] [address] Transcribed By: WILEY 06/24/23 1045 Dictated By: Crow Parker DO 06/24/23 1044 Signed By: 06/24/23 1045 [facility] pH Auto test strip (U)Ordere d By: David Khan on 06-24-2023 pH (U) 5.5 [pH] 5.0-9.0 [facility] Basic Metabolic Panelon 06- Anion gap [Moles/Vol] 11.2 mmol/L Normal 6.0-15.0 [facility] Comment on above: Performed By: #### V BG #### Point of Care testing , Calcium [Mass/Vol] 8.5 mg/dL Low 8.6-10.3 [facility] Comment on above: Performed By: #### V BG #### Point of Care testing , Chloride [Moles/Vol] 100 mmol/L Normal 98-107 [facility] Comment on above: Performed By: #### V BG #### Point of Care testing , CO2 [Moles/Vol] 28.5 mmol/L Normal 21.0-31.0 [facility] Comment on above: Performed By: #### V BG #### Point of Care testing , Creatinine [Mass/Vol] 0.90 mg/dL Normal 0.70-1.[address] [facility] Comment on above: Performed By: #### V BG #### Point of Care testing , Creatinine Clr Calc Pharmacy 87.99 [facility] Comment on above: Performed By: #### V BG #### Point of Care testing , GFR/1.73 sq M.predicted MDRD (S/P/Bld) [Vol rate/Area] mL/min/{1.73_m2} [facility] Comment on above: Performed By: #### V BG #### Point of Care testing , Glucose [Mass/Vol] 224 mg/dL High 70-100 [facility] Comment on above: Result Comment: [place] Glucose Reference Range is dependent on time and content of last meal. Glucose of more than 200 mg/dL in a nonstressed, ambulatory subject supports the diagnosis of Diabetes Mellitus. ADA recommended reference range Performed By: #### V BG #### Point of Care testing , Potassium [Moles/Vol] 3.7 mmol/L Normal 3.5-5.[address] [facility] Comment on above: Performed By: #### V BG #### Point of Care testing , Sodium [Moles/Vol] 136 mmol/L Normal 136-145 [facility] Comment on above: Performed By: [...] 05-05-2023 Calcium [Mass/Vol] 8.5 mg/dL 8.6-10.3 [facility] Carbon dioxide, total [Moles /volume] in Serum or PlasmaOrdered By: Eldon Ambriz on 05-05-2023 CO2 [Moles/Vol] 28.5 mmol/L 21.0-31.0 [facility] Chloride [Moles/volume] in S tino or PlasmaOrdered By: Eldon Ambriz on 05-05-2023 Chloride [Moles/Vol] 100 mmol/L 98-107 [facility] Complete Blood Count Auto Di ffon 05-05-2023 Basophils (Bld) [#/Vol] 0.0 10*3/uL Normal 0.0-0.2 [facility] Comment on above: Result Comment: PERF ORMED BY: [facility] [address] [place] [address] PATHOLOGIST PRINTING MECHANIST ANIL GUAMAN M.D. Performed By: #### V [...] RBC (Bld) [#/Vol] 3.88 10*6/uL Low 3.90-5.60 [facility] Comment on above: Performed By: #### V BG #### Point of Care testing , WBC (Bld) [#/Vol] 5.0 10*3/uL Normal 4.1-10.5 [facility] Comment on above: Performed By: #### V BG #### Point of Care testing , Creatinine [Mass/volume] in Serum or PlasmaOrdered By: Eldon Ambriz on 05-05-2023 Creatinine [Mass/Vol] 0.90 mg/dL 0.70-1.[address] [facility] Eosinophils Auto (Bld) [#/Vo l]Ordered [...] 05-05-2023 Glucose [Mass/Vol] 224 mg/dL 70-100 [facility] Comment on above: ADA recommended refe [...] 05-05-2023 MCHC (RBC) [Mass/Vol] 35.6 g/dL 32.5-35.[address] [facility] MCV Auto (RBC) [Entitic vol] Ordered By: Eldon Ambriz on 05-05-2023 MCV (RBC) [Entitic vol] 91.5 fL 83.5-101 [facility] Magnesiumon 05-05-2023 Magnesium [Mass/Vol] 1.3 mg/dL Low 1.9-2.7 [facility] Comment on above: Result Comment: PERF ORMED BY: [facility] [address] [place] [address] PATHOLOGIST PRINTING MECHANIST ANIL GUAMAN M.D. Performed By: #### V BG #### Point of Care testing , Magnesium [Mass/volume] in S tino or PlasmaOrdered By: Eldon Ambriz on 05-05-2023 Magnesium [Mass/Vol] 1.3 mg/dL 1.9-2.7 [facility] Monocytes Auto (Bld) [#/Vol] Ordered By: Eldon [...] on 05-05-2023 Potassium [Moles/Vol] 3.7 mmol/L 3.5-5.[address] [facility] RBC Auto (Bld) [#/Vol]Ordere d By: Eldon Ambriz on 05-05-2023 RBC (Bld) [#/Vol] 3.88 10*6/uL 3.90-5.60 [facility] Serum or plasma anion gap de terminationOrdered By: Eldon Ambriz on 05-05-2023 Anion gap [Moles/Vol] 11.2 mmol/L 6.0-15.0 [facility] Sodium [Moles/volume] in Ser um or PlasmaOrdered By: Eldon Ambriz on 05-05-2023 Sodium [Moles/Vol] 136 mmol/L 136-145 [facility] Urea nitrogen [Mass/volume] in Serum or PlasmaOrdered By: Eldon Ambriz on 05-05-2023 Urea nitrogen [Mass/Vol] 16 mg/dL 7-25 [facility] WBC Auto (Bld) [#/Vol]Ordere d By: Eldon Ambriz on 05-05-2023 WBC (Bld) [#/Vol] 5.0 10*3/uL 4.1-10.5 [facility] Alanine aminotransferase [En zymatic activity/volume] in [...] on 05-04-2023 Bilirubin [Mass/Vol] 1.1 mg/dL 0.3-1.0 [facility] Cholesterol [Mass/volume] in Serum or PlasmaOrdered By: Eldon Ambriz on 05-04-2023 Cholesterol [Mass/Vol] 150 mg/dL 140-200 [facility] Comment on above: Chol less than 200 [...] on above: Result Comment: PERF ORMED BY: [facility] [address] [place] [address] PATHOLOGIST PRINTING MECHANIST ANIL GUAMAN M.D. Performed By: #### V BG #### Point of Care testing , Basophils/100 WBC (Bld) 0.7 % Normal . [facility] Comment on above: Performed By: #### V BG #### Point of Care testing , Eosinophils (Bld) [#/Vol] 0.1 10*3/uL Normal 0.0-0.45 [facility] Comment on above: Performed By: #### V BG #### Point of Care testing , Eosinophils/100 WBC (Bld) 1.1 % Normal . [facility] Comment on above: Performed By: #### V BG #### Point of Care testing , Erythrocyte distribution width (RBC) [Ratio] 12.4 % Normal 12.0-14.8 [facility] Comment on above: Performed By: #### V BG #### Point of Care testing , Hematocrit (Bld) [Volume fraction] 36.2 % Low 38.8-50.0 [facility] Comment on above: Performed By: #### V BG #### Point of Care testing , Hemoglobin (Bld) [Mass/Vol] 12.8 g/dL Low 13.0-17.0 [facility] Comment on above: Performed By: #### V BG #### Point of Care testing , Lymphocytes (Bld) [#/Vol] 1.8 10*3/uL Normal 1.00-4.8 [facility] Comment on above: Performed By: #### V BG #### Point of Care testing , Lymphocytes/100 WBC (Bld) 34.9 % Normal . [facility] Comment on above: Performed By: #### V BG #### Point of Care testing , MCH (RBC) [Entitic mass] 32.5 pg Normal 27.5-35.2 [facility] Comment on above: Performed By: #### V BG #### Point of Care testing , MCV (RBC) [Entitic vol] 92.1 fL Normal 83.5-101 [facility] Comment on above: Performed By: #### V BG #### Point of Care testing , Mean Corpuscular HGB Conc 35.3 g/dL Normal 32.5-35.6 [facility] Comment on above: Performed By: #### V BG #### Point of Care testing , Monocytes (Bld) [#/Vol] 0.4 10*3/uL Normal 0.0-0.8 [facility] Comment on above: Performed By: #### V BG #### Point of Care testing , Monocytes/100 WBC (Bld) 7.6 % Normal . [facility] Comment on above: Performed By: #### V BG #### Point of Care testing , Neutrophils (Bld) [#/Vol] 2.9 10*3/uL Normal 1.8-7.7 [facility] Comment on above: Performed By: #### V BG #### Point of Care testing , Neutrophils/100 WBC (Bld) 55.7 % Normal . [facility] Comment on above: Performed By: #### V BG #### Point of Care testing , NRBC% 0.3 /100{WBC} Normal 0-0.5 [facility] Comment on above: Performed By: #### V BG #### Point of Care testing , Platelet mean volume (Bld) [Entitic vol] 9.2 fL Normal 6.6-10.1 [facility] Comment on above: Performed By: #### V BG #### Point of Care testing , Platelets (Bld) [#/Vol] 145 10*3/uL Low 150-450 [facility] Comment on above: Performed By: #### V BG #### Point of Care testing , RBC (Bld) [#/Vol] 3.92 10*6/uL Normal 3.90-5.60 [facility] Comment on above: Performed By: #### V BG #### Point of Care testing , WBC (Bld) [#/Vol] 5.1 10*3/uL Normal 4.1-10.5 [facility] Comment on above: Performed By: #### V BG #### Point of Care testing , Comprehensive Metabolic Pane rudolph 05-04-2023 Albumin [Mass/Vol] 3.8 g/dL Normal 3.5-5.7 [facility] Comment on above: Order Comment: FASTI NG Y Performed By: #### V BG #### Point of Care testing , Albumin/Globulin [Mass ratio] 1.7 {ratio} Normal [facility] Comment on above: Order Comment: FASTI NG Y Performed By: #### V BG #### Point of Care testing , ALP [Catalytic activity/Vol] 59 U/L Normal 34-104 [facility] Comment on above: Order Comment: FASTI NG Y Performed By: #### V BG #### Point of Care testing , ALT [Catalytic activity/Vol] 9 U/L Normal 7-52 [facility] Comment on above: Order Comment: FASTI NG Y Performed By: #### V BG #### Point of Care testing , Anion gap [Moles/Vol] 11.4 mmol/L Normal 6.0-15.0 [facility] Comment on above: Order Comment: FASTI NG Y Performed By: #### V BG #### Point of Care testing , AST [Catalytic activity/Vol] 10 U/L Low 13-39 [facility] Comment on above: Order Comment: FASTI NG Y Performed By: #### V BG #### Point of Care testing , Bilirubin [Mass/Vol] 1.1 mg/dL High 0.3-1.0 [facility] Comment on above: Order Comment: FASTI NG Y Performed By: #### V BG #### Point of Care testing , Calcium [Mass/Vol] 8.7 mg/dL Normal 8.6-10.3 [facility] Comment on above: Order Comment: FASTI NG Y Performed By: #### V BG #### Point of Care testing , Chloride [Moles/Vol] 100 mmol/L Normal 98-107 [facility] Comment on above: Order Comment: FASTI NG Y Performed By: #### V BG #### Point of Care testing , CO2 [Moles/Vol] 28.8 mmol/L Normal 21.0-31.0 [facility] Comment on above: Order Comment: FASTI NG Y Performed By: #### V BG #### Point of Care testing , Creatinine [Mass/Vol] 1.18 mg/dL Significan t change down 0.70-1.30 [facility] Comment on above: Order Comment: FASTI NG Y Performed By: #### V BG #### Point of Care testing , Creatinine Clr Calc Pharmacy 67.11 [facility] Comment on above: Order Comment: FASTI NG Y Performed By: #### V BG #### Point of Care testing , GFR/1.73 sq M.predicted MDRD (S/P/Bld) [Vol rate/Area] mL/min/{1.73_m2} [facility] Comment on above: Order Comment: FASTI NG Y Performed By: #### V BG #### Point of Care testing , Globulin (S) [Mass/Vol] 2.2 g/dL [facility] Comment on above: Order Comment: FASTI NG Y Performed By: #### V BG #### Point of Care testing , Glucose [Mass/Vol] 226 mg/dL Significant change up 70-100 [facility] Comment on above: Order Comment: FASTI NG Y Result Comment: [place] Glucose Reference Range is dependent on time and content of last meal. Glucose of more than 200 mg/dL in a nonstressed, ambulatory subject supports the diagnosis of Diabetes Mellitus. ADA recommended reference range Performed By: #### V BG #### Point of Care testing , Potassium [Moles/Vol] 3.2 mmol/L Low 3.5-5.[address] [facility] Comment on above: Order Comment: FASTI NG Y Performed By: #### V BG #### Point of Care testing , Protein [Mass/Vol] 6.0 g/dL Low 6.4-8.9 [facility] Comment on above: Order Comment: FASTI NG Y Performed By: #### V BG #### Point of Care testing , Sodium [Moles/Vol] 137 mmol/L Normal 136-145 [facility] Comment on above: Order Comment: FASTI NG Y Performed By: #### V BG #### Point of Care testing , Urea nitrogen [Mass/Vol] 28 mg/dL High 7-25 [facility] Comment on above: Order Comment: FASTI NG Y Performed By: #### V BG #### Point of Care testing , ECG 12 lead ECGon 05-04-2023 ECG 12 lead ECG [facility] [place] [address] Electrocardiograph Report Signed 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 MR#: 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 : 1970 Acct:[id number] Age/Sex: 52 / M ADM Date: 05/03/23 Loc: Room: [address] [place] [address] Type: ADM IN Attending Dr: Eldon Ambriz [...] Electronically Signed By:CROW DEAN DO Transcribed By: ELIOT Signed By Crow Dean DO 05/05 0748 [facility] Globulin Calc (S) [Mass/Vol] Ordered By: Eldon Ambriz on 05-04-2023 Globulin (S) [Mass/Vol] 2.2 g/dL [facility] Glucose Glucometer (BldC) [M ass/Vol]Ordered By: Eldon Ambriz on 05-04-2023 Glucose [Mass/Vol] 260 mg/dL [facility] Comment on above: Random Glucose Refer ence Range is dependent on time and content of last meal. Glucose of more than 200 mg/dL in a nonstressed, ambulatory subject supports the diagnosis of Diabetes Mellitus. Glucose Poct Glucometerson 0 05-04-2023 Commemt1 Glu2: Cleaned Meter [facility] Comment on above: Result Comment: PERF ORMED BY: [facility] [address] [facility] [place] [address] PATHOLOGIST PRINTING MECHANIST ANIL GUAMAN M.D. Performed By: #### G LULS #### Point of Care testing , Glucose [Mass/Vol] 260 mg/dL Normal [facility] Comment on above: Result Comment: [place] Glucose Reference Range is dependent on time and content of last meal. Glucose of more than 200 mg/dL in a nonstressed, ambulatory subject supports the diagnosis of Diabetes Mellitus. Performed By: #### G LULS #### Point of Care testing , Glucose [Mass/Vol] 291 mg/dL Normal [facility] Comment on above: Result Comment: [place] Glucose Reference Range is dependent on time and content of last meal. Glucose of more than 200 mg/dL in a nonstressed, ambulatory subject supports the diagnosis of Diabetes Mellitus. PERFORMED BY: [facility] [address] [facility] [place] [address] PATHOLOGIST PRINTING MECHANIST ANIL GUAMAN M.D. Performed By: #### C MP, CBC #### [facility] [address] Lipid Panelon 05-04-2023 Cholesterol [Mass/Vol] 150 mg/dL Normal 140-200 [facility] [facility] Comment on above: Order Comment: HEATHER SEBASTIAN Y Result Comment: Chol less than 200 mg/dl low risk Chol 201-239 mg/dl borderline risk Chol 240 mg/dl and greater high risk Performed By: #### G LULS #### Point of Care testing , Cholesterol in HDL [Mass/Vol] 36 mg/dL Normal 23-92 [facility] Comment on above: Order Comment: FASTI NG Y Result Comment: HDL CHOL ATP-III CLASSIFICATION Cardiovascular Risk HDL > or equal to 60 mg/dL LOW HDL < 40 mg/dL HIGH Performed By: #### G LULS #### Point of Care testing , Cholesterol.total/Chol esterol in HDL [Mass ratio] 4.2 {ratio} Normal <5.0 [facility] Comment on above: Order Comment: FASTBeka NG Y Result Comment: PERF ORMED BY: [place] [address] PATHOLOGIST PRINTING MECHANIST ANIL GUAMAN M.D. Performed By: #### G LULS #### Point of Care testing , LDL Cholesterol,Calculated 72 mg/dL Normal 0-100 [facility] Comment on above: Order Comment: FASTI NG Y Result Comment: LDL ATP III CLASSIFICATION LDL less than 100 mg/dL Optimal LDL 100-129 mg/dL Near or above optimal LDL 130-159 mg/dL Borderline high LDL 160-189 mg/dL High LDL greater than 189 mg/dL Very high Performed By: #### G LULS #### Point of Care testing , Triglyceride w/Reflex 211 mg/dL High 0-[address] [facility] Comment on above: Order Comment: FASTI NG Y Result Comment: TRIG ATP III CLASSIFICATION TRIG less than 150 mg/dL Normal TRIG 150-199 mg/dL Borderline high TRIG 200-500 mg/dL High TRIG greater than 500 mg/dL Very high Standard traceable to the Center for Disease Conrtrol and Prevention (CDC) test method. Performed By: #### G LULS #### Point of Care testing , VLDL CHOLESTEROL 42 mg/dL Normal [facility] Comment on above: Order Comment: FASTI NG Y Performed By: #### G TIA #### Point of Care testing , No Panel InformationOrdered By: Eldon Ambriz on 05-04-2023 Bedside Glucose Comment Glu2: cleaned meter [facility] Protein [Mass/volume] in Ser um or PlasmaOrdered By: Eldon Ambriz on 05-04-2023 Protein [Mass/Vol] 6.0 g/dL 6.4-8.9 [facility] Serum or plasma albumin/glob ulin [...] US renal BIon 05-04-2023 US renal BI [facility] [place] [address] Ultrasound Report Signed Patient: Justice Aranda MR#: [id number] : 1970 Acct:[id number] Age/Sex: 52 / M ADM Date: 05/03/23 Loc: Room: [address] [place] [address] Type: ADM IN Attending Dr: Eldon Ambriz [...] shadowing calculi or hydronephrosis are identified. The corporate associate attorney raised question of a possible left renal [...] Flor Almonte M.D.05/04/2023 9:43 AM Dictation Location: [place] [address] Tech: Dyan Zambrano Transcribed By: WILEY 05/04/23942 Dictated By: Flor Almonte MD 05/04/2332 Signed By: 05/04/23942 [facility] A1C with Estimated Average G marilu 05-03-2023 Glucose [Mass/Vol] 266 mg/dL Normal [facility] Comment on above: Order Comment: Comme nt Add onto previous lab draw Result Comment: PERF ORMED BY: [facility] [address] [place] [address] PATHOLOGIST PRINTING MECHANIST ANIL GUAMAN M.D. Performed By: #### V BG #### Point of Care testing , HbA1c (Bld) [Mass fraction] 10.9 % High 4.3-5.6 [facility] Comment on above: Order Comment: Comme nt Add onto previous lab draw Result Comment: Incr eased risk for diabetes: 5.7 - 6.4 diabetes: >6.4 glycemic control for adults with diabetes: <7.0 Performed By: #### V BG #### Point of Care testing , Activated partial thrombopla stin time (aPTT) in platelet poor plasma by coagulation aOrdered By: Preet Burrows on 05-03-2023 aPTT Coag (PPP) [Time] 22.8 s 25.1-36.5 [facility] Amphetamine Screen Ql (U)Ord ered By: Eldon Ambriz on 05-03-2023 Amphetamines Ql (U) Negative Negative [facility] B-Type Natriuretic Peptideon 05-03-2023 Natriuretic peptide B (Bld) [Mass/Vol] 20.0 pg/mL Normal 5-100 [facility] Comment on above: Result Comment: PERF ORMED BY: [place] [address] PATHOLOGIST PRINTING MECHANIST ANIL GUAMAN M.D. Performed By: #### C MP, CBC #### [address] Barbiturates [Presence] in U rine by Screen methodOrdered By: Eldon Ambriz on 05-03-2023 Barbiturates Screen Ql (U) Negative Negative [facility] Basic Metabolic Panelon Anion gap [Moles/Vol] 14.6 mmol/L Normal 6.0-15.0 [facility] Comment on above: Performed By: #### C MP, CBC #### [facility] [address] [place] [address] Calcium [Mass/Vol] 9.6 mg/dL Normal 8.6-10.3 [facility] Comment on above: Performed By: #### C MP, CBC #### [facility] [address] [place] [address] [place] Chloride [Moles/Vol] 93 mmol/L Low 98-107 [facility] Comment on above: Performed By: #### C MP, CBC #### [facility] [address] [place] [address] [place] CO2 [Moles/Vol] 28.5 mmol/L Normal 21.0-31.0 [facility] Comment on above: Performed By: #### C MP, CBC #### [facility] [address] [place] [address] [place] Creatinine [Mass/Vol] 2.23 mg/dL High 0.70-1.[address] [facility] Comment on above: Performed By: #### C MP, CBC #### [facility] [address] [place] [address] [place] Creatinine Clr Calc Pharmacy 35.50 [facility] Comment on above: Result Comment: PERF ORMED BY: [place] [address] PATHOLOGIST PRINTING MECHANIST ANIL GUAMAN M.D. Performed By: #### C MP, CBC #### [facility] [address] [place] [address] [place] GFR/1.73 sq M.predicted MDRD (S/P/Bld) [Vol rate/Area] 34.376 mL/min/{1.73_m2} Normal [facility] Comment on above: Performed By: #### C MP, CBC #### [place] [address] [place] Glucose [Mass/Vol] 350 mg/dL High 70-100 [facility] Comment on above: Result Comment: [place] Glucose Reference Range is dependent on time and content of last meal. Glucose of more than 200 mg/dL in a nonstressed, ambulatory subject supports the diagnosis of Diabetes Mellitus. ADA recommended reference range Performed By: #### C MP, CBC #### [facility] [address] [place] [address] [place] Potassium [Moles/Vol] 4.1 mmol/L Normal 3.5-5.[address] [facility] Comment on above: Performed By: #### C MP, CBC #### [facility] [address] [place] [address] [place] Sodium [Moles/Vol] 132 mmol/L Low 136-145 [facility] Comment on above: Performed By: #### C MP, CBC #### [facility] [address] Urea nitrogen [Mass/Vol] 35 mg/dL High 7-25 [facility] Comment on above: Performed By: #### C MP, CBC #### [facility] [address] Basophils Auto (Bld) [#/Vol] Ordered By: Preet Burrows on 05-03-2023 Basophils (Bld) [#/Vol] 0.0 10*3/uL 0.0-0.2 [facility] Basophils/100 WBC Auto (Bld) Ordered By: Preet Burrows on 05-03-2023 Basophils/100 WBC (Bld) 0.3 % . [facility] Benzodiazepines Screen Ql (U )Ordered By: Eldon Ambriz on 05-03-2023 Benzodiazepines Ql (U) Negative Negative [facility] Benzoylecgonine [Presence] i n Urine by Screen methodOrdered By: Eldon Ambriz on 05-03-2023 Benzoylecgonine Screen Ql (U) Positive Negative [facility] Beta Hydroxybuterateon 05-03 Beta Hydroxybuterate 0.70 mmol/L High 0.02-0.[address] [facility] Comment on above: Result Comment: PERF ORMED BY: [place] [address] PATHOLOGIST PRINTING MECHANIST ANIL GUAMAN M.D. Performed By: #### L IPASE, BHOB #### [facility] [address] [place] [address] Beta hydroxybutyrate [Moles/ volume] in Serum or PlasmaOrdered By: Preet Burrows on 05-03-2023 Beta hydroxybutyrate [Moles/Vol] 0.70 mmol/L 0.02-0.27 [facility] Bilirubin Test strip Ql (U)O rdered By: Preet Burrows on 05-03-2023 Bilirubin Ql (U) Negative Negative [facility] BioFire Not Detectedon 05-03 BioFire Not Detected Not detected Normal Not Detecte [facility] Comment on above: Result Comment: This is a duplicate RP2.1 COVID (PCR) result to be used for statistical tracking purpose only. PERFORMED BY: [facility] [address] [place] [address] PATHOLOGIST PRINTING MECHANIST ANIL GUAMAN M.D. Performed By: #### C MP, CBC #### [facility] [address] COVID-19 Detected/Not Detect edOrdered By: Eldon Ambriz on 05-03-2023 SARS-CoV-2 (COVID-19) RNA SILVIA+non-probe Ql (Nph) Not detected Not Detecte [facility] Comment on above: This is a duplicate RP2.1 COVID (PCR) result to be used for statistical tracking purpose only. Calcium [Mass/volume] in Ser um or PlasmaOrdered By: Preet Burrows on 05-03-2023 Calcium [Mass/Vol] 9.6 mg/dL 8.6-10.3 [facility] Cannabinoids [Presence] in U rine by [...] on 05-03-2023 CO2 [Moles/Vol] 28.5 mmol/L 21.0-31.0 [facility] Chloride [Moles/volume] in S tino or PlasmaOrdered By: Preet Burrows on 05-03-2023 Chloride [Moles/Vol] 93 mmol/L 98-107 [facility] Color Auto (U)Ordered By: Luis Manuel Burrows on 05-03-2023 Color (U) Yellow Yellow [facility] Complete Blood Count Auto Di ffon 05-03-2023 Basophils (Bld) [#/Vol] 0.0 10*3/uL Normal 0.0-0.2 [facility] Comment on above: Result Comment: PERF ORMED BY: [place] [address] PATHOLOGIST PRINTING MECHANIST ANIL GUAMAN M.D. Performed By: #### C MP, CBC #### [address] Basophils/100 WBC (Bld) 0.3 % Normal . [facility] Comment on above: Performed By: #### C MP, CBC #### [address] Eosinophils (Bld) [#/Vol] 0.0 10*3/uL Normal 0.0-0.45 [facility] Comment on above: Performed By: #### C MP, CBC #### [address] Eosinophils/100 WBC (Bld) 0.2 % Normal . [facility] Comment on above: Performed By: #### C MP, CBC #### [address] Erythrocyte distribution width (RBC) [Ratio] 12.4 % Normal 12.0-14.8 [facility] Comment on above: Performed By: #### C MP, CBC #### [address] Hematocrit (Bld) [Volume fraction] 40.9 % Normal 38.8-50.0 [facility] Comment on above: Performed By: #### C MP, CBC #### [place] [address] [place] Hemoglobin (Bld) [Mass/Vol] 14.3 g/dL Normal 13.0-17.0 [facility] Comment on above: Performed By: #### C MP, CBC #### [place] [address] [place] Lymphocytes (Bld) [#/Vol] 1.0 10*3/uL Normal 1.00-4.8 [facility] Comment on above: Performed By: #### C MP, CBC #### [address] Lymphocytes/100 WBC (Bld) 13.0 % Normal . [facility] Comment on above: Performed By: #### C MP, CBC #### [facility] [address] [place] [address] [place] MCH (RBC) [Entitic mass] 32.6 pg Normal 27.5-35.2 [facility] Comment on above: Performed By: #### C MP, CBC #### [address] MCV (RBC) [Entitic vol] 93.0 fL Normal 83.5-101 [facility] Comment on above: Performed By: #### C MP, CBC #### [address] Mean Corpuscular HGB Conc 35.1 g/dL Normal 32.5-35.6 [facility] Comment on above: Performed By: #### C MP, CBC #### [place] [address] [place] Monocytes (Bld) [#/Vol] 0.5 10*3/uL Normal 0.0-0.8 [facility] Comment on above: Performed By: #### C MP, CBC #### [address] Monocytes/100 WBC (Bld) 15.82 % Normal 0.00-20.00 [facility] Comment on above: Performed By: #### C MP, CBC #### [place] [address] [place] Monocytes/100 WBC (Bld) 6.1 % Normal . [facility] Comment on above: Performed By: #### C MP, CBC #### [place] [address] [place] Neutrophils (Bld) [#/Vol] 6.2 10*3/uL Normal 1.8-7.7 [facility] Comment on above: Performed By: #### C MP, CBC #### [address] Neutrophils/100 WBC (Bld) 80.4 % Normal . [facility] Comment on above: Performed By: #### C MP, CBC #### [address] NRBC% 0.1 /100{WBC} Normal 0-0.5 [facility] Comment on above: Performed By: #### C MP, CBC #### [address] Platelet mean volume (Bld) [Entitic vol] 8.9 fL Normal 6.6-10.1 [facility] Comment on above: Performed By: #### C MP, CBC #### [address] Platelets (Bld) [#/Vol] 169 10*3/uL Normal 150-450 [facility] Comment on above: Performed By: #### C MP, CBC #### [address] RBC (Bld) [#/Vol] 4.40 10*6/uL Normal 3.90-5.60 [facility] Comment on above: Performed By: #### C MP, CBC #### [address] WBC (Bld) [#/Vol] 7.7 10*3/uL Normal 4.1-10.5 [facility] Comment on above: Performed By: #### C MP, CBC #### [place] [address] [place] Creatine Kinaseon 05-03-2023 CK [Catalytic activity/Vol] 73 U/L Normal 30-223 [facility] Comment on above: Performed By: #### C MP, CBC #### [place] [address] [place] Creatine kinase [Enzymatic a ctivity/volume] in Serum or PlasmaOrdered By: Preet Burrows on 05-03-2023 CK [Catalytic activity/Vol] 73 U/L 30-223 [facility] Creatinine [Mass/volume] in Serum or PlasmaOrdered By: Preet Burrows on 05-03-2023 Creatinine [Mass/Vol] 2.23 mg/dL 0.70-1.[address] [facility] Creatinine [Mass/volume] in UrineOrdered By: Eldon Ambriz on 05-03-2023 Creatinine (U) [Mass/Vol] 80.0 mg/dL 14.0-26.0 [facility] Creatinine, Urine (Random)on 05-03-2023 Creatinine, Urine (Random) 80.0 mg/dL High 14.0-26.0 [facility] Comment on above: Performed By: #### G LULS #### Point of Care testing , Drug Screen,Urineon 05-03-20 23 Amphetamine Screen,Urine Negative Normal Negative [facility] Comment on above: Performed By: #### C MP, CBC #### [place] [address] [place] Barbiturate Screen,Urine Negative Normal Negative [facility] Comment on above: Performed By: #### C MP, CBC #### [facility] [address] [place] [address] [place] Benzodiazepines Screen,Urine Negative Normal Negative [facility] Comment on above: Performed By: #### C MP, CBC #### [place] [address] [place] Cannabinoid Screen,Urine Negative Normal Negative [facility] Comment on above: Result Comment: Thes e are unconfirmed results and should not be used for legal purposes. Drug Cut-Off Concentration: AMPH 1000 ng/mL CHRISTINA 200 ng/mL CHRISTIANO 200 ng/mL COCM 300 ng/mL OP 300 ng/mL PCP 25 ng/mL THC 20 ng/mL PERFORMED BY: [place] [address] PATHOLOGIST PRINTING MECHANIST ANIL GUAMAN M.D. Performed By: #### C MP, CBC #### [facility] [address] [place] [address] [place] Cocaine Screen,Urine Positive High Negative [facility] Comment on above: Performed By: #### C MP, CBC #### [facility] [address] Opiate Screen,Urine Negative Normal Negative [facility] Comment on above: Performed By: #### C MP, CBC #### [facility] [address] Phencyclidine Screen,Urine Negative Normal Negative [facility] Comment on above: Performed By: #### C MP, CBC #### [facility] [address] ECG 12 lead ECGon 05-03-2023 ECG 12 lead ECG [facility] Main [place] [address] [place] [address] Electrocardiograph Report Signed 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 MR#: [id number] : 1970 Acct:[id number] Age/Sex: 52 / M ADM Date: 05/03/23 Loc: ER Room: Type: [facility] ER Attending Dr: Ordering Provider: Preet [...] normal variant Confirmed by Dave HENDRICKS DO ([id number]) on 05/03/2023 7:30:30 PM Referred By: Electronically Signed By:Dave HENDRICKS DO Transcribed By: MUS Signed By Dave Hendricks DO 0 05/03/23 1930 Normal [facility] Eosinophils Auto (Bld) [...] on 05-03-2023 Glucose [Mass/Vol] 268 mg/dL [facility] Comment on above: Random Glucose Refer ence Range is dependent on time and content of last meal. Glucose of more than 200 mg/dL in a nonstressed, ambulatory subject supports the diagnosis of Diabetes Mellitus. Glucose Poct Glucometerson 0 05-03-2023 Glucose [Mass/Vol] 268 mg/dL Normal [facility] Comment on above: Result Comment: [place] om Glucose Reference Range is dependent on time and content of last meal. Glucose of more than 200 mg/dL in a nonstressed, ambulatory subject supports the diagnosis of Diabetes Mellitus. PERFORMED BY: [place] [address] PATHOLOGIST PRINTING MECHANIST ANIL GUAMAN M.D. Performed By: #### C MP, CBC #### [address] Glucose [Mass/volume] in Ser um or PlasmaOrdered By: Preet Burrows on 05-03-2023 Glucose [Mass/Vol] 350 mg/dL 70-100 [facility] Comment on above: ADA recommended refe [...] 05-03-2023 Ketones (U) [Mass/Vol] Trace Negative [facility] - Chemistry and C hemistry - challengeOrdered By: Preet Burrows on 05-03-2023 CO2 [Moles/Vol] 32.1 mmol/L 24.0-29.0 [facility] HCO3 (Bld) [Moles/Vol] 30.6 mmol/L 23.0-29.0 [facility] - CoagulationOrde red By: Preet Burrows on 05-03-2023 PT Coag (PPP) [Time] 11.6 s 9.0-12.9 [facility] Leukocytes [#/volume] correc billy for nucleated erythrocytes in Blood by Automated counOrdered By: Preet Burrows on 05-03-2023 WBC corrected for nucl RBC Auto (Bld) [#/Vol] 7.7 10*3/uL 4.1-10.5 [facility] Lipaseon 05-03-2023 Lipase [Catalytic activity/Vol] 63.0 U/L Normal 11.0-82.0 [facility] Comment on above: Performed By: #### L IPASE, BHOB #### [address] Lipase [Enzymatic activity/v olume] in Serum [...] 05-03-2023 MCHC (RBC) [Mass/Vol] 35.1 g/dL 32.5-35.[address] [facility] MCV Auto (RBC) [Entitic vol] [...] at 15:28 Blood Gas Sample Site Venous [facility] FiO2 21 % [facility] [...] 05-03-2023 Opiates Screen Ql (U) Negative Negative [facility] Partial Thromboplastin Timeo n 05-03-2023 aPTT Coag (Bld) [Time] 22.8 s Low 25.1-36.5 [facility] Comment on above: Result Comment: PERF ORMED BY: [place] [address] PATHOLOGIST PRINTING MECHANIST ANIL GUAMAN M.D. Performed By: #### C MP, CBC #### [address] Phencyclidine Screen Ql (U)O rdered By: Eldon Ambriz on 05-03-2023 Phencyclidine Ql (U) Negative Negative [facility] Platelet mean volume Auto (B ld) [...] on 05-03-2023 Potassium [Moles/Vol] 4.1 mmol/L 3.5-5.[address] [facility] Protein Auto test strip (U) [Mass/Vol]Ordered By: Preet Burrows on 05-03-2023 Protein (U) [Mass/Vol] Negative Negative [facility] Prothrombin Time INRon 05-03 INR Coag [...] - 4.5 Performed By: #### C MP, CBC #### [facility] [address] [place] [id number] [facility] PT Coag (PPP) [Time] 11.6 s Normal 9.0-12.9 [facility] Comment on above: Performed By: #### C MP, CBC #### [facility] [address] RBC Auto (Bld) [#/Vol]Ordere d By: Preet Burrows on 05-03-2023 RBC (Bld) [#/Vol] 4.40 10*6/uL 3.90-5.60 [facility] Respiratory (Upper) Panel, P CRon 05-03-2023 Respiratory [...] A H3 Blank Space -- PERFORMED BY: [facility] [address] [place] [id number] PATHOLOGIST PRINTING MECHANIST ANIL GUAMAN M.D. Normal [facility] Comment on above: Performed By: #### C MP, CBC #### [address] Respiratory pathogens DNA an d RNA panel - Nasopharynx by SILVIA with non-probe detectionOrdered By: Eldon Ambriz on 05-03-2023 Respiratory pathogens DNA and RNA panel SILVIA+non-probe (Nph) [facility] Serum or plasma anion gap de terminationOrdered By: Preet Burrows on 05-03-2023 Anion gap [Moles/Vol] 14.6 mmol/L 6.0-15.0 [facility] Sodium [Moles/volume] in Ser um or PlasmaOrdered By: Preet Burrows on 05-03-2023 Sodium [Moles/Vol] 132 mmol/L 136-145 [facility] Sodium [Moles/volume] in Uri neOrdered By: Eldon Ambriz on 05-03-2023 Sodium (U) [Moles/Vol] 105 mmol/L [facility] Comment on above: No reference range e stablished Sodium, Urine (Random)on Sodium (U) [Moles/Vol] 105 mmol/L Normal [facility] Comment on above: Result Comment: No r eference range established PERFORMED BY: [place] [address] PATHOLOGIST PRINTING MECHANIST ANIL GUAMAN M.D. Performed By: #### G LUISABEL #### Point of Care testing , Specific gravity Auto test s trip (U) [Rel density]Ordered By: Preet Burrows on 05-03-2023 Specific gravity (U) [Rel density] 1.013 1.001-1.03 0 [facility] Troponin I High Sensitivityo n 05-03-2023 Troponin I High Sensitivity 14.2 pg/mL Normal 0.0-20.0 [facility] Comment on above: Result Comment: PERF ORMED BY: [place] [address] PATHOLOGIST PRINTING MECHANIST JIANLAN SUN M.D. Performed By: #### C MP, CBC #### [facility] [address] [place] [id number] [place] Troponin I.cardiac [Mass/vol ume] in Serum or Plasma by Detection limit <= 0.01 ng/Ordered By: Preet Burrows on 05-03-2023 Troponin I.cardiac DL <= 0.01 ng/mL [Mass/Vol] 14.2 pg/mL 0.0-20.0 [facility] Urea nitrogen [Mass/volume] in Serum or PlasmaOrdered By: Preet uBrrows on 05-03-2023 Urea nitrogen [Mass/Vol] 35 mg/dL 06-21 [facility] Urinalysison 05-03-2023 Appearance (U) Clear Normal Clear [facility] Comment on above: Order Comment: Name Collection Type:: Clean-Voided Midstream Performed By: #### C MP, CBC #### [facility] [address] [place] [id number] [place] Bilirubin,Urine Negative Normal Negative [facility] Comment on above: Order Comment: Name Collection Type:: Clean-Voided Midstream Performed By: #### C MP, CBC #### [facility] [address] [place] [id number] [place] Color (U) Yellow Normal Yellow [facility] Comment on above: Order Comment: Name Collection Type:: Clean-Voided Midstream Performed By: #### C MP, CBC #### [facility] [address] [place] [id number] [place] Glucose Ql (U) >=1000 High Normal [facility] Comment on above: Order Comment: Name Collection Type:: Clean-Voided Midstream Performed By: #### C MP, CBC #### [facility] [address] [place] [address] [place] Ketones Ql (U) Trace High Negative [facility] Comment on above: Order Comment: Name Collection Type:: Clean-Voided Midstream Performed By: #### C MP, CBC #### [facility] [address] [place] [id number] [place] Leukocyte esterase Test strip Ql (U) Negative Normal Negative [facility] Comment on above: Order Comment: Name Collection Type:: Clean-Voided Midstream Performed By: #### C MP, CBC #### [place] [address] [place] Nitrite,Urine Negative Normal Negative [facility] Comment on above: Order Comment: Name Collection Type:: Clean-Voided Midstream Performed By: #### C MP, CBC #### [place] [address] [place] Occult Blood,Urine Negative Normal Negative [facility] Comment on above: Order Comment: Name Collection Type:: Clean-Voided Midstream Result Comment: PERF ORMED BY: [place] [address] PATHOLOGIST PRINTING MECHANIST ANIL GUAMAN M.D. Performed By: #### C MP, CBC #### [place] [address] [place] pH (U) 5.5 [pH] Normal 5.0-9.0 [facility] Comment on above: Order Comment: Name Collection Type:: Clean-Voided Midstream Performed By: #### C MP, CBC #### [place] [address] [place] Protein,Urine Negative Normal Negative [facility] Comment on above: Order Comment: Name Collection Type:: Clean-Voided Midstream Performed By: #### C MP, CBC #### [place] [address] [place] Specificy Gary,Urine 1.013 Normal 1.001-1.03 0 [facility] Comment on above: Order Comment: Name Collection Type:: Clean-Voided Midstream Performed By: #### C MP, CBC #### [place] [address] [place] Urobilinogen,Urine Normal Normal Normal [facility] Comment on above: Order Comment: Name Collection Type:: Clean-Voided Midstream Performed By: #### C MP, CBC #### [place] [address] [place] Urine clarity by refractomet ry automatedOrdered [...] on 05-03-2023 Urobilinogen (U) [Mass/Vol] Normal mg/dL [facility] Venous Blood [place] CO2 [Moles/Vol] 32.1 mmol/L High 24.0-29.0 [facility] Comment on above: Performed By: #### G LULS #### Point of Care testing , HCO3 (Bld) [Moles/Vol] 30.6 mmol/L High 23.0-29.0 [facility] Comment on above: Performed By: #### G LULS #### Point of Care testing , Respiratory Critical [facility] Comment on above: Result Comment: Crit ical Value called on: 05/03/2023 at 15:28 PERFORMED BY: [place] [address] [place] [address] PATHOLOGIST PRINTING MECHANIST ANIL GUAMAN M.D. Performed By: #### G LULS #### Point of Care testing , VBG Base Excess 4.4 mmol/L High -3.0-3.0 [facility] Comment on above: Performed By: #### G LULS #### Point of Care testing , VBG Draw Site Venous [facility] Comment on above: Performed By: #### G LULS #### Point of Care testing , VBG Frac Inspired O2 21 % [facility] Comment on above: Performed By: #### G LULS #### Point of Care testing , VBG O2 Content 2.8 mmol/L Low 6.6-9.7 [facility] Comment on above: Performed By: #### G LULS #### Point of Care testing , VBG Oxygen Saturation 31.2 % Off scale low 73.0-76.0 [facility] Comment on above: Performed By: #### G LULS #### Point of Care testing , VBG PCO2 51.3 mm[Hg] High 38.0-50.0 [facility] Comment on above: Performed By: #### G LULS #### Point of Care testing , VBG PH Venous PH 7.39 Normal 7.32-7.43 [facility] Comment on above: Performed By: #### G LULS #### Point of Care testing , VBG PO2 18.5 mm[Hg] Off scale low 35.0-45.0 [facility] Comment on above: Performed By: #### G LULS #### Point of Care testing , WBC Auto (Bld) [#/Vol]Ordere d By: Preet Burrows on 05-03-2023 WBC (Bld) [#/Vol] 7.7 10*3/uL 4.1-10.5 [facility] XR chest 2V*on 05-03-2023 XR chest 2V* [facility] [place] [address] XRay Report Signed 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 MR#: [id number] : 1970 Acct:[id number] Age/Sex: 52 / M ADM Date: 05/03/23 Loc: ER Room: Type: PRE ER Attending Dr: Copies to: POLA WATT Ordering Provider: POLA WATT Date of Service: 05/03/23 XR/XR chest 2V*: [...] Flor Almonte M.D.05/03/2023 2:03 PM Dictation Location: [facility]- Transcribed By: [facility] 05/03/23 140 Dictated By: Flor Almonte MD 05/03/23 140 Signed By: 05/03/23 140 Normal [facility] [...] [Mass/Vol] 3.8 g/dL 3.2-5.5 [facility] Creatinine and Glomerular fi ltration rate.predicted panel (S/P/Bld)Ordered By: Bucky Cheng on 01-07-2023 Creatinine [Mass/Vol] 1.07 mg/dL 0.64-1.[address] [facility] Eosinophils Auto (Bld) [#/Vo l]Ordered By: Bucky [...] on 01-07-2023 Lipase [Catalytic activity/Vol] 58.0 U/L 22-51 [facility] Leukocytes [#/volume] correc billy for nucleated erythrocytes in Blood by Automated counOrdered By: Bucky Cheng on 01-07-2023 WBC corrected for nucl RBC Auto (Bld) [#/Vol] 8.0 10*3/uL 4.1-10.5 [facility] Lymphocytes Auto (Bld) [#/Vo l]Ordered By: Bucky [...] 01-07-2023 MCHC (RBC) [Mass/Vol] 34.4 g/dL 32.5-35.[address] [facility] MCV Auto (RBC) [Entitic vol] [...] 01-07-2023 Protein [Mass/Vol] 7.5 g/dL 6.1-7.9 [facility] RBC Auto (Bld) [#/Vol]Ordere d By: Bucky Cheng on 01-07-2023 RBC (Bld) [#/Vol] 4.69 10*6/uL 3.90-5.60 [facility] Serum or plasma alanine humphrey otransferase measurement [...] 01-07-2023 Anion gap [Moles/Vol] 15.6 mmol/L 6.0-15.0 [facility] Serum or plasma aspartate am inotransferase measurement (enzymatic activity/volume)Ordered By: Bucky Cheng on 01-07-2023 AST [Catalytic activity/Vol] 15 U/L 10-42 [facility] Serum or plasma calcium travis urement (mass/volume)Ordered By: Bucky Cheng on 01-07-2023 Calcium [Mass/Vol] 9.4 mg/dL 8.2-10.2 [facility] Serum or plasma chloride hollie surement (moles/volume)Ordered By: Bucky Cheng on 01-07-2023 Chloride [Moles/Vol] 98 mmol/L 95-114 [facility] Serum or plasma glucose travis urement (mass/volume)Ordered By: Bucky Cheng on 01-07-2023 Glucose [Mass/Vol] 351 mg/dL 70-100 [facility] Comment on above: ADA recommended refe rence rangeRandom Glucose Reference Range is dependent on time and content of last meal. Glucose of more than 200 mg/dL in a nonstressed, ambulatory subject supports the diagnosis of Diabetes Mellitus. Serum or plasma potassium me asurement (moles/volume)Ordered By: Bucky Cheng on 01-07-2023 Potassium [Moles/Vol] 4.4 mmol/L 3.5-5.[address] [facility] Serum or plasma sodium measu rement (moles/volume)Ordered By: Bucky Cheng on 01-07-2023 Sodium [Moles/Vol] 137 mmol/L 136-146 [facility] Serum or plasma total biliru bin measurement (mass/volume)Ordered By: Bucky Cheng on 01-07-2023 Bilirubin [Mass/Vol] 1.2 mg/dL 0.3-1.2 [facility] Serum or plasma total carbon dioxide measurement (moles/volume)Ordered By: Bucky Cheng on 01-07-2023 CO2 [Moles/Vol] 27.8 mmol/L 22.0-30.0 [facility] Serum or plasma urea nitroge n measurement (mass/volume)Ordered By: Bucky Cheng on 01-07-2023 Urea nitrogen [Mass/Vol] 35 mg/dL 9-23 [facility] Troponin I.cardiac [Mass/vol ume] in Serum or Plasma by High sensitivity methodOrdered By: Bucky Cheng on 01-07-2023 Troponin I.cardiac High sensitivity method [Mass/Vol] 11 pg/mL 0-20 [facility] WBC Auto (Bld) [#/Vol]Ordere d By: Bucky Cheng on 01-07-2023 WBC (Bld) [#/Vol] 8.0 10*3/uL 4.1-10.5 [facility] Basophils Auto (Bld) [#/Vol] Ordered By: Crow [...] on 11-04-2022 Cholesterol [Mass/Vol] 167 mg/dL 140-200 [facility] Comment on above: Chol less than 200 [...] VLDL [Mass/Vol] 56 mg/dL [facility] Creatinine [Mass/volume] in UrineOrdered By: Crow Dean on 11-04-2022 Creatinine (U) [Mass/Vol] 276.3 mg/dL [facility] Comment on above: No reference range e stablished Creatinine and Glomerular fi ltration rate.predicted panel (S/P/Bld)Ordered By: Crow Dean on 11-04-2022 Creatinine [Mass/Vol] 0.93 mg/dL 0.64-1.[address] [facility] Eosinophils Auto (Bld) [#/Vo l]Ordered [...] [#/Vol] 6.0 10*3/uL 4.1-10.5 [facility] Lymphocytes Auto (Bld) [#/Vo l]Ordered By: Crow [...] 11-04-2022 MCHC (RBC) [Mass/Vol] 34.5 g/dL 32.5-35.[address] [facility] MCV Auto (RBC) [Entitic vol] Ordered By: Crow Dean on 11-04-2022 MCV (RBC) [Entitic vol] 93.0 fL 83.5-101 [facility] Monocytes Auto (Bld) [#/Vol] Ordered By: Crow Dean on 11-04-2022 Monocytes (Bld) [#/Vol] 0.4 10*3/uL 0.0-0.8 [facility] Monocytes/100 WBC Auto (Bld) Ordered By: Crwo Dean on 11-04-2022 Monocytes/100 WBC (Bld) 6.2 [...] 11-04-2022 Protein [Mass/Vol] 6.6 g/dL 6.1-7.9 [facility] RBC Auto (Bld) [#/Vol]Ordere d By: Crow Dean on 11-04-2022 RBC (Bld) [#/Vol] 4.24 10*6/uL 3.90-5.60 [facility] Serum or plasma alanine humphrey otransferase measurement [...] 11-04-2022 Anion gap [Moles/Vol] 14.3 mmol/L 6.0-15.0 [facility] Serum or plasma aspartate am inotransferase measurement (enzymatic activity/volume)Ordered By: Crow Dean on 11-04-2022 AST [Catalytic activity/Vol] 12 U/L 10-42 [facility] Serum or plasma calcium travis urement (mass/volume)Ordered By: Crow Dean on 11-04-2022 Calcium [Mass/Vol] 9.2 mg/dL 8.2-10.2 [facility] Serum or plasma chloride hollie surement (moles/volume)Ordered By: Crow Dean on 11-04-2022 Chloride [Moles/Vol] 96 mmol/L 95-114 [facility] Serum or plasma glucose travis urement (mass/volume)Ordered By: Crow Dean on 11-04-2022 Glucose [Mass/Vol] 242 mg/dL 70-100 [facility] Comment on above: ADA recommended refe [...] on 11-04-2022 Potassium [Moles/Vol] 4.4 mmol/L 3.5-5.[address] [facility] Serum or plasma sodium measu rement (moles/volume)Ordered By: Crow Dean on 11-04-2022 Sodium [Moles/Vol] 133 mmol/L 136-146 [facility] Serum or plasma total biliru bin measurement (mass/volume)Ordered By: Crow Dean on 11-04-2022 Bilirubin [Mass/Vol] 1.0 mg/dL 0.3-1.2 [facility] Serum or plasma total carbon dioxide measurement (moles/volume)Ordered By: Crow Dean on 11-04-2022 CO2 [Moles/Vol] 27.1 mmol/L 22.0-30.0 [facility] Serum or plasma total choles [...] Qn 1.62 m[IU]/L 0.45-5.33 [facility] Triglyceride [Mass/volume] i n [...] WBC (Bld) [#/Vol] 6.0 10*3/uL 4.1-10.5 [facility] Albumin [Mass/volume] in Ser um or PlasmaOrdered By: Ladi Mina on 10-26-2022 Albumin [Mass/Vol] 3.9 g/dL 3.2-5.5 [facility] Amphetamine Screen Ql (U)Ord ered By: Ladi Irvingimmargie on 10-26-2022 Amphetamines Ql (U) Negative Negative [facility] Automated erythrocytes count in urine sediment (number/area)Ordered By: Ladi Mina on 10-26-2022 RBC Auto (Urine sed) [#/Area] 0-1 [HPF] 0-4 [facility] Automated leukocytes count i n urine sediment (number/area)Ordered By: Ladi Villatoroimmargie on 10-26-2022 WBC Auto (Urine sed) [#/Area] 1-2 [HPF] 0-4 [facility] Barbiturates [Presence] in U rineOrdered By: Ladi Bullimore on 10-26-2022 Barbiturates Ql (U) Negative Negative [facility] Basophils Auto (Bld) [#/Vol] Ordered By: Ladi Bullimore on 10-26-2022 Basophils (Bld) [#/Vol] 0.1 10*3/uL 0.0-0.2 [facility] Basophils/100 WBC Auto (Bld) Ordered By: Ladi Mina on 10-26-2022 Basophils/100 WBC (Bld) 0.9 % . [facility] Benzodiazepines [Presence] i n UrineOrdered By: Ladi Mina on 10-26-2022 Benzodiazepines Ql (U) Negative Negative [facility] Bilirubin Test strip Ql (U)O rdered By: Ladi Mina on 10-26-2022 Bilirubin Ql (U) Negative Negative [facility] COVID CepheidOrdered By: Jolene Mina on 10-26-2022 SARS-CoV-2 (COVID-19) Ab IA Ql Negative Negative [facility] Comment on above: This is a duplicate [employer] Xpert Xpress CoV-2/Flu/RSV Plus RNA by RT-PCR result to be used for statistical tracking purpose only. SARS-CoV-2 (COVID-19) RNA SILVIA+probe Ql (Unsp spec) [facility] SARS-CoV-2 (COVID-19) RNA SILVIA+probe Ql (Unsp spec) [facility] Cannabinoids [Presence] in U rine by Screen methodOrdered By: Ladi Mina on 10-26-2022 Cannabinoids Screen Ql (U) Negative Negative [facility] Comment on above: These are unconfirme d results and should not be used for legal purposes. Drug Cut-Off Concentration: AMPH 1000 ng/mL CHRISTINA 200 ng/mL CHRISTIANO 200 ng/mL COCM 300 ng/mL OP 300 ng/mL PCP 25 ng/mL THC 20 ng/mL Color Auto (U)Ordered By: Kathryn Mina on 10-26-2022 Color (U) Yellow Yellow [facility] Creatinine and Glomerular fi ltration rate.predicted panel (S/P/Bld)Ordered By: Ladi Mina on 10-26-2022 Creatinine [Mass/Vol] 1.19 mg/dL 0.64-1.[address] [facility] Direct bilirubin measurement Ordered By: Ladi Mina on 10-26-2022 Bilirubin.direct [Mass/Vol] 0.2 mg/dL 0.0-0.4 [facility] Eosinophils Auto (Bld) [#/Vo [...] Hospital Globulin Calc (S) [Mass/Vol] Ordered By: Ladi Mina on 10-26-2022 Globulin (S) [Mass/Vol] 3.3 g/dL [facility] Hematocrit Auto (Bld) [Volum e fraction]Ordered By: Ladisujey Mina on 10-26-2022 Hematocrit (Bld) [Volume fraction] 44.3 % 38.8-50.0 [facility] Hemoglobin [Mass/volume] in BloodOrdered By: Ladi Mina on 10-26-2022 Hemoglobin (Bld) [Mass/Vol] 15.1 g/dL 13.0-17.0 [facility] Ketones Auto test strip (U) [Mass/Vol]Ordered By: Ladi Mina on 10-26-2022 Ketones (U) [Mass/Vol] Trace Negative [facility] Laboratory - Chemistry and C hemistry - challengeOrdered By: Ladi Mina on 10-26-2022 Lipase [Catalytic activity/Vol] 39.0 U/L 22-51 [facility] Laboratory - Drug toxicology Ordered By: Ladi Mina on 10-26-2022 Opiates Ql (U) Negative Negative [facility] Laboratory - Hematology and Cell countsOrdered By: Ladi Mina on 10-26-2022 Nucleated RBC/100 WBC (Bld) [Ratio] 0.0 % 0-0.5 [facility] Laboratory - UrinalysisOrder ed By: Ladi Bullimore on 10-26-2022 Hyaline casts LM Ql (Urine sed) 0-8 [LPF] 0-8 [facility] Leukocytes [#/volume] in Blo od by Automated countOrdered By: Ladi Bullimore on 10-26-2022 WBC (Bld) [#/Vol] 6.5 10*3/uL 4.5-11.0 [facility] Lymphocytes Auto (Bld) [#/Vo l]Ordered By: Ladi [...] 10-26-2022 MCHC (RBC) [Mass/Vol] 34.1 g/dL 32.5-35.[address] [facility] MCV Auto (RBC) [Entitic vol] [...] Neutrophils/100 WBC Auto (Bl d)Ordered By: Ladi Johnsore on 10-26-2022 Neutrophils/100 WBC (Bld) 65.0 % . [facility] Nitrite Test strip Ql (U)Ord ered By: Ladi Johnsore on 10-26-2022 Nitrite Ql (U) Negative Negative [facility] No Panel InformationOrdered By: Ladi Mina on 10-26-2022 Estimated GFR () > 60 mL/Min [facility] Comment on above: GFR estimated refere nce range: According to KDOQI guidelines, <60 ml/min/1.73m2 is sufficient to diagnose a patient with chronic kidney disease. Pharmacy Creatinine Clearance (Chem 76.46 [facility] Phencyclidine Screen Ql (U)O rdered By: Ladi Mina on 10-26-2022 Phencyclidine Ql (U) Negative Negative [facility] Platelet mean volume Auto (B ld) [Entitic vol]Ordered By: Ladi Johnsore on 10-26-2022 Platelet mean volume (Bld) [Entitic vol] 8.6 fL 6.6-10.1 [facility] Platelets Auto (Bld) [#/Vol] Ordered By: Ladi Villatoroimore on 10-26-2022 Platelets (Bld) [#/Vol] 203 10*3/uL 150-450 [facility] Protein Auto test strip (U) [Mass/Vol]Ordered By: Ladi Mina on 10-26-2022 Protein (U) [Mass/Vol] Trace mg/dL Negative [facility] Protein [Mass/volume] in Ser um or PlasmaOrdered By: Ladi Mina on 10-26-2022 Protein [Mass/Vol] 7.2 g/dL 6.1-7.9 [facility] RBC Auto (Bld) [#/Vol]Ordere d By: Ladi Bullimore on 10-26-2022 RBC (Bld) [#/Vol] 4.72 10*6/uL 3.90-5.60 [facility] Serum or plasma alanine humphrey otransferase measurement without P-5'-P (enzymatic activiOrdered By: Ladi Keeley on 10-26-2022 ALT No additional P-5'-P [Catalytic activity/Vol] 20 U/L 10-60 [facility] Serum or plasma albumin/glob ulin mass ratioOrdered By: Ladisujey [facility] on 10-26-2022 Albumin/Globulin [Mass ratio] 1.2 {ratio} [facility] Serum or plasma alkaline suzi sphatase measurement (enzymatic activity/volume)Ordered By: Ladi Mina on 10-26-2022 ALP [Catalytic activity/Vol] 67 U/L 32-92 [facility] Serum or plasma anion gap de terminationOrdered By: Ladi Mina on 10-26-2022 Anion gap [Moles/Vol] 14.8 mmol/L 6.0-15.0 [facility] Serum or plasma aspartate am inotransferase measurement (enzymatic activity/volume)Ordered By: Ladi Mina on 10-26-2022 AST [Catalytic activity/Vol] 20 U/L 10-42 [facility] Serum or plasma calcium travis urement (mass/volume)Ordered By: Ladi Mina on 10-26-2022 Calcium [Mass/Vol] 9.0 mg/dL 8.2-10.2 [facility] Serum or plasma chloride hollie surement (moles/volume)Ordered By: Ladi Villatoromargie on 10-26-2022 Chloride [Moles/Vol] 98 mmol/L 95-114 [facility] Serum or plasma ethanol travis urement (mass/volume)Ordered By: Ladi Mina on 10-26-2022 Ethanol [Mass/Vol] mg/dL [facility] Ethanol [Mass/Vol] TNP [facility] Comment on above: Test not performed Serum or plasma glucose travis urement (mass/volume)Ordered By: Ladi Mina on 10-26-2022 Glucose [Mass/Vol] 284 mg/dL 70-100 [facility] Comment on above: ADA recommended refe [...] on 10-26-2022 Potassium [Moles/Vol] 4.0 mmol/L 3.5-5.[address] [facility] Serum or plasma sodium measu rement (moles/volume)Ordered By: Ladisujey [facility] on 10-26-2022 Sodium [Moles/Vol] 138 mmol/L 136-146 [facility] Serum or plasma total biliru bin measurement (mass/volume)Ordered By: Ladi Mina on 10-26-2022 Bilirubin [Mass/Vol] 1.2 mg/dL 0.3-1.2 [facility] Serum or plasma total carbon dioxide measurement (moles/volume)Ordered By: Ladisujey [facility] on 10-26-2022 CO2 [Moles/Vol] 29.2 mmol/L 22.0-30.0 [facility] Serum or plasma urea nitroge n measurement (mass/volume)Ordered By: Ladi [facility] on 10-26-2022 Urea nitrogen [Mass/Vol] 19 mg/dL 9-23 [facility] Specific gravity Auto test s trip (U) [Rel density]Ordered By: Ladi [facility] 10-26-2022 Specific gravity (U) [Rel density] 1.027 1.001-1.03 0 [facility] Squamous epithelial cells de tection in urine sediment by light microscopyOrdered By: Ladisujey Villatoroj[facility] 10-26-2022 Epithelial cells.squamous LM Ql (Urine sed) 0-1 [HPF] 0-2 [facility] Urine bacteria detection by automated methodOrdered By: Ladisujey [facility] on 10-26-2022 Bacteria Auto Ql (U) None seen None Seen [facility] Urine clarity by refractomet ry automatedOrdered By: [...] on 10-13-2022 Glucose [Mass/Vol] 271 mg/dL [facility] Comment on above: Random Glucose Refer ence Range is dependent on time and content of last meal. Glucose of more than 200 mg/dL in a nonstressed, ambulatory subject supports the diagnosis of Diabetes Mellitus. No Panel InformationOrdered By: Grayson Duvall on 10-13-2022 Bedside Glucose Comment Glu2: cleaned meter [facility] Albumin [Mass/volume] in Ser um or PlasmaOrdered By: Boy Frost on 10-11-2022 Albumin [Mass/Vol] 3.8 g/dL 3.2-5.5 [facility] Basophils Auto (Bld) [#/Vol] Ordered By: [...] SILVIA+probe Ql (Unsp spec) [facility] Creatinine and Glomerular fi ltration rate.predicted panel (S/P/Bld)Ordered By: Boy Frost on 10-11-2022 Creatinine [Mass/Vol] 0.94 mg/dL 0.64-1.[address] [facility] Eosinophils Auto (Bld) [#/Vo l]Ordered [...] on 10-11-2022 Lipase [Catalytic activity/Vol] 46.0 U/L 22-51 [facility] Laboratory - Hematology and Cell countsOrdered By: Boy Frost on 10-11-2022 Nucleated RBC/100 WBC (Bld) [Ratio] 0.0 % 0-0.5 [facility] Leukocytes [#/volume] in Blo od by Automated countOrdered By: Boy Frost on 10-11-2022 WBC (Bld) [#/Vol] 7.0 10*3/uL 4.5-11.0 [facility] Lymphocytes Auto (Bld) [#/Vo l]Ordered By: Boy [...] 10-11-2022 MCHC (RBC) [Mass/Vol] 34.7 g/dL 32.5-35.[address] [facility] MCV Auto (RBC) [Entitic vol] [...] 10-11-2022 Protein [Mass/Vol] 7.3 g/dL 6.1-7.9 [facility] RBC Auto (Bld) [#/Vol]Ordere d By: Boy Frost on 10-11-2022 RBC (Bld) [#/Vol] 4.90 10*6/uL 3.90-5.60 [facility] Serum or plasma alanine humphrey otransferase measurement [...] 10-11-2022 Anion gap [Moles/Vol] 10.6 mmol/L 6.0-15.0 [facility] Serum or plasma aspartate am inotransferase measurement (enzymatic activity/volume)Ordered By: Boy Frost on 10-11-2022 AST [Catalytic activity/Vol] 20 U/L 10-42 [facility] Serum or plasma calcium travis urement (mass/volume)Ordered By: Boy Frost on 10-11-2022 Calcium [Mass/Vol] 9.5 mg/dL 8.2-10.2 [facility] Serum or plasma chloride hollie surement (moles/volume)Ordered By: Boy Frost on 10-11-2022 Chloride [Moles/Vol] 102 mmol/L 95-114 [facility] Serum or plasma glucose travis urement (mass/volume)Ordered By: Boy Frost on 10-11-2022 Glucose [Mass/Vol] 283 mg/dL 70-100 [facility] Comment on above: ADA recommended refe rence rangeRandom Glucose Reference Range is dependent on time and content of last meal. Glucose of more than 200 mg/dL in a nonstressed, ambulatory subject supports the diagnosis of Diabetes Mellitus. Serum or plasma potassium me asurement (moles/volume)Ordered By: Boy Frost on 10-11-2022 Potassium [Moles/Vol] 4.1 mmol/L 3.5-5.[address] [facility] Serum or plasma sodium measu rement (moles/volume)Ordered By: Boy Frost on 10-11-2022 Sodium [Moles/Vol] 136 mmol/L 136-146 [facility] Serum or plasma total biliru bin measurement (mass/volume)Ordered By: Boy Frost on 10-11-2022 Bilirubin [Mass/Vol] 1.0 mg/dL 0.3-1.2 [facility] Serum or plasma total carbon dioxide measurement (moles/volume)Ordered By: Boy Frost on 10-11-2022 CO2 [Moles/Vol] 27.5 mmol/L 22.0-30.0 [facility] Serum or plasma urea nitroge n measurement (mass/volume)Ordered By: Boy Frost on 10-11-2022 Urea nitrogen [Mass/Vol] 27 mg/dL 9- [facility] CT ABDOMEN/PELVIS WITH CONTR Kellie 06-07-2019 Impression: 1. No ac leon CT abnormalities 2. Circumferential esophageal wall thickening; esophagitis vs neoplasm; recommend followup upper gi esophogram vs direct visualization. 3. Gastric fundal wall thickening; gastritis vs neoplasm as well and can be further evaluated with above mentioned upper GI. Electronically Signed By: Nadeem Mercado M.D. on Jun 07 2019 1:39:[id number] [employer] User, Interfaces - 06/07/2019 1:41 AM EDT Patient Name: JUSTICE ARANDA Patient NRM: [id number] Patient : 1970 Examination:CT ABDOMEN/PELVIS WITH CONTRAST [...] Mercado M.D. on Jun 07 2019 1:39:[id number] [employer] Patient Name: JUSTICE ARANDA Patient NRM: [id number] Patient : 1970 Examination:CT ABDOMEN/PELVIS WITH CONTRAST [...] fracture or dislocation. Superficial soft Tissues: Normal. [employer] PROTIME-INRon 06-07-2019 INR Coag (PPP) [Relative time] 1.1 {INR} [employer] Comment on above: INR: ------INDICATION INR Ref Range DVT, PE, AF, AMI, tissue heart valve 2.0 - 3.0 Mechanical prosthetic valves 2.5 - 3.5 PT Coag (PPP) [Time] 12.9 s [employer] XR ABDOMEN 1 VIEWon 06-07-20 19 User, Interfaces - 06/07/2019 12:40 AM EDT Patient Name: JUSTICE ARANDA Patient NRM: [id number] Patient : 1970 Examination:XR ABDOMEN 1 VIEW [...] Martínez MD on Jun 07 2019 12:40:30:390AM [employer] Impression: Nonspeci fic, nonobstructive bowel gas pattern with mild colonic stool burden. Electronically Signed By: Luis Carlos Martínez MD on Jun 07 2019 12:40:30:390AM [employer] Patient Name: JUSTICE ARANDA Patient NRM: [id number] Patient : 1970 Examination:XR ABDOMEN 1 VIEW [...] soft tissue calcifications. No acute bony abnormalities. [facility] AMYLASEon 06-06-2019 Amylase [Catalytic activity/Vol] 179 U/L High 25 - 125 U/L [facility] CBC, EDIF, PLATELETon 2018 Basophils/100 WBC (Bld) 0.6 % 0 - 3 % [facility] Eosinophils/100 WBC (Bld) 0.4 % 0 - 4 % [facility] Erythrocyte distribution width (RBC) [Ratio] 12.9 % 11.5 - 14.5 % [facility] Hematocrit (Bld) [Volume fraction] 37.8 % Low 42 - 52 % [facility] Hemoglobin (Bld) [Mass/Vol] 13.5 g/dL Low 14 - 18 g/dL [facility] Lymphocytes/100 WBC (Bld) 27.2 % 20.5 - 51.1 % [facility] MCH (RBC) [Entitic mass] 33.6 pg High 28 - 32 pg [facility] MCHC (RBC) [Mass/Vol] 35.6 g/dL 33 - 3 7 g/dL [facility] MCV (RBC) [Entitic vol] 94.5 fL High 80 - 94 fL [facility] Monocytes/100 WBC (Bld) 7.8 % 0 - 13 % [facility] Neutrophils/100 WBC (Bld) 64.0 % 42.2 - 75.2 % [facility] Platelets (Bld) [#/Vol] 150 10*3/uL [facility] RBC (Bld) [#/Vol] 4.00 10*6/uL Low [facility] SCAN SLIDE NO NO [facility] WBC (Bld) [#/Vol] 6.3 10*3/uL [facility] COMPREHENSIVE METABOLIC PROF ILE Gisselle 06-06-2019 Albumin BCG dye [Mass/Vol] 3.9 g/dL 3.5 - 5 g/dL [facility] Albumin/Globulin [Mass ratio] 1.3 {ratio} [facility] ALP [Catalytic activity/Vol] 49 U/L 38 - 126 U/L [facility] ALT No additional P-5'-P [Catalytic activity/Vol] 27 U/L 10 - 40 U/L [facility] Anion gap [Moles/Vol] 13.1 mmol/L [facility] AST [Catalytic activity/Vol] 24 U/L 10 - 42 U/L [facility] Bilirubin [Mass/Vol] 1.0 mg/dL 0.3 - 1 .2 mg/dL [facility] Calcium [Mass/Vol] 8.9 mg/dL 8.4 - 10. 2 mg/dL [facility] Chloride [Moles/Vol] 101 mmol/L [facility] CO2 [Moles/Vol] 27 mmol/L [facility] Creatinine [Mass/Vol] 1.0 mg/dL 0.4 - 1.1 mg/dL [facility] GFR/1.73 sq M.predicted MDRD (S/P/Bld) [Vol rate/Area] mL/min/{1.73_m2} [facility] Comment on above: Estimated Glomerular filtration Rate Reference Ranges: GFR, mL/min/1.73m2 >= 60 Adequate 30 - 59 Moderately decreased GFR 15 - 29 Severely decreased GFR <18 Kidney failure (or dialysis) GFR calculated using abbreviated MDRD formula. MDRD equation not suitable for patients who are under 18, have unstable creatinine concentrations Globulin (S) [Mass/Vol] 3.1 g/dL 2.9 - 3.3 g/dL [facility] Glucose [Mass/Vol] 253 mg/dL High 70 - 126 mg/dL [facility] Potassium [Moles/Vol] 4.1 mmol/L [facility] Protein [Mass/Vol] 7.0 g/dL 6.4 - 8.3 g/dL [facility] Sodium [Moles/Vol] 137 mmol/L [facility] Urea nitrogen [Mass/Vol] 33 mg/dL High 7 - 22 mg/dL [facility] LACTATE, BLOODon 06-06-2019 Lactate [Moles/Vol] 2.2 mmol/L 0.5 - 2. 2 mmol/L [facility] LIPASEon 06-06-2019 Lipase [Catalytic activity/Vol] 252 U/L High 22 - 51 U/L [facility] Otheron 06-06-2019 Interpretation and review of laboratory results Abnormal [facility] Interpretation and review of laboratory results Abnormal [facility] POCT GLUCOSEon 06-06-2019 Glucose [Mass/Vol] 220 mg/dL High 70 - 126 mg/dL [facility] Interpretation and review of laboratory results Abnormal [facility] U/A WITH MICROSCOPICon 06-06 Bacteria LM Ql (Urine sed) NONE SEEN NONE SEEN [facility] C & S INDICATED NO NO [facility] Casts LM.LPF (Urine sed) [#/Area] NONE SEEN NONE SEEN /lpf [facility] Epithelial cells.squamous LM.HPF (Urine sed) [#/Area] NONE SEEN NONE SEEN /hpf [facility] Mucus Ql (Urine sed) NONE SEEN NONE SEEN [facility] RBC LM.HPF (Urine sed) [#/Area] NONE SEEN NONE SEEN /hpf [facility] Unidentified crystals LM Ql (Urine sed) NONE SEEN NONE SEEN [facility] WBC LM.HPF (Urine sed) [#/Area] NONE SEEN [facility] URINALYSIS WITH REFLEX CULTU REon 06-06-2019 Appearance (U) CLEAR CLEAR [facility] BILIRUBIN, URINE DIPSTICK Negative NEGATIVE [facility] BLOOD, URINE DIPSTICK Negative NEGATIVE [facility] Color (U) YELLOW YELLOW [facility] GLUCOSE, URINE DIPSTICK 100 mg/dL NEGATIVE [facility] KETONES, URINE DIPSTICK Negative NEGATIVE mg/dL [facility] LEUKOCYTE ESTERASE, URINE DIPSTK Negative NEGATIVE [facility] Microscopic observation LM Nom (Urine sed) YES NO [facility] Nitrate Ql (U) Negative NEGATIVE [facility] PH, URINE DIPSTICK 5.5 [facility] Protein (U) [Mass/Vol] TRACE NEGAT DOMONIQUE mg/dL [facility] SPECIFIC GRAVITY, URINE DIPSTICK 1.025 [facility] UROBILINOGEN, URINE DIPSTICK 0.2 [facility] XR CHEST AP PORTABLEon 06-06 Impression: Normal e xam. Electronically Signed By: Nadeem Mercado M.D. on Jun 06 2019 11:49:26:900PM [facility] Patient Name: JUSTICE ARANDA Patient NRM: [id number] Patient : 1970 Examination:XR CHEST AP PORTABLE [...] consolidation, effusion or pnuemothorax. Osseous structures normal. [employer] - 06/06/2019 11:49 PM EDT Patient Name: JUSTICE ARANDA Patient NRM: [id number] Patient : 1970 Examination:XR CHEST AP PORTABLE [...] Mercado M.D. on Jun 06 2019 11:49:26:900PM [employer] 06-01-2019 Patient Name: JUSTICE ARANDA Patient NRM: [id number] Patient : 1970 Examination:XR ELBOW RIGHT 3+ [...] Mckeon MD. on Jun 01 2019 3:53:18:820PM [place] [employer] - 06/01/2019 3:53 PM EDT Patient Name: JUSTICE ARANDA Patient NRM: [id number] Patient : 1970 Examination:XR ELBOW RIGHT 3+ [...] Mckeon MD. on Jun 01 2019 3:53:18:820PM [facility] LEVELon 2018 Acetaminophen [Mass/Vol] <10 10 - 30 ug/mL [facility] ALCOHOL (ETHANOL),BLOODon Ethanol [Mass/Vol] 243 mg/dL High 0 - 10 mg/dL [facility] Comment on above: ETOH: % = MG/DL DIVIDED BY 1000 Interpretation and review of laboratory results Abnormal [facility] CBC, EDIF, PLATELETon 2018 Basophils/100 WBC (Bld) 1.0 % 0 - 3 % [facility] Eosinophils/100 WBC (Bld) 0.7 % 0 - 4 % [facility] Erythrocyte distribution width (RBC) [Ratio] 12.4 % 11.5 - 14.5 % [facility] Hematocrit (Bld) [Volume fraction] 38.9 % Low 42 - 52 % [facility] Hemoglobin (Bld) [Mass/Vol] 13.9 g/dL Low 14 - 18 g/dL [facility] Interpretation and review of laboratory results Abnormal [facility] Lymphocytes/100 WBC (Bld) 26.5 % 20.5 - 51.1 % [facility] MCH (RBC) [Entitic mass] 33.1 pg High 28 - 32 pg [facility] MCHC (RBC) [Mass/Vol] 35.7 g/dL 33 - 3 7 g/dL [facility] MCV (RBC) [Entitic vol] 92.6 fL 80 - 94 fL [facility] Monocytes/100 WBC (Bld) 5.4 % 0 - 13 % [facility] Neutrophils/100 WBC (Bld) 66.4 % 42.2 - 75.2 % [facility] Platelets (Bld) [#/Vol] 144 10*3/uL [facility] RBC (Bld) [#/Vol] 4.20 10*6/uL Low [facility] SCAN SLIDE NO NO [facility] WBC (Bld) [#/Vol] 5.4 10*3/uL [facility] COMPREHENSIVE METABOLIC PROF ILE Gisselle 05-31-2019 Albumin BCG dye [Mass/Vol] 3.8 g/dL 3.5 - 5 g/dL [facility] Albumin/Globulin [Mass ratio] 1.1 {ratio} Low [facility] ALP [Catalytic activity/Vol] 55 U/L 38 - 126 U/L [facility] ALT No additional P-5'-P [Catalytic activity/Vol] 25 U/L 10 - 40 U/L [facility] Anion gap [Moles/Vol] 14.5 mmol/L [facility] AST [Catalytic activity/Vol] 22 U/L 10 - 42 U/L [facility] Bilirubin [Mass/Vol] 0.9 mg/dL 0.3 - 1 .2 mg/dL [facility] Calcium [Mass/Vol] 8.3 mg/dL Low 8.4 - 10. 2 mg/dL [facility] Chloride [Moles/Vol] 100 mmol/L [facility] CO2 [Moles/Vol] 22 mmol/L [facility] Creatinine [Mass/Vol] 0.8 mg/dL 0.4 - 1.1 mg/dL [facility] GFR/1.73 sq M.predicted MDRD (S/P/Bld) [Vol rate/Area] mL/min/{1.73_m2} [facility] Comment on above: Estimated Glomerular filtration Rate Reference Ranges: GFR, mL/min/1.73m2 >= 60 Adequate 30 - 59 Moderately decreased GFR 15 - 29 Severely decreased GFR <18 Kidney failure (or dialysis) GFR calculated using abbreviated MDRD formula. MDRD equation not suitable for patients who are under 18, have unstable creatinine concentrations Globulin (S) [Mass/Vol] 3.4 g/dL High 2.9 - 3.3 g/dL [facility] Glucose [Mass/Vol] 208 mg/dL High 70 - 126 mg/dL [facility] Potassium [Moles/Vol] 3.5 mmol/L [facility] Protein [Mass/Vol] 7.2 g/dL 6.4 - 8.3 g/dL [facility] Sodium [Moles/Vol] 133 mmol/L Low [facility] Urea nitrogen [Mass/Vol] 13 mg/dL 7 - 22 mg/dL [facility] DRUGS OF ABUSE PROFILE, URIN Lupillo 05-31-2019 Acetaminophen+Phenacet in Screen Ql (U) Negative NEG [facility] Amphetamine cutoff Screen (U) [Mass/Vol] Negative NEG [facility] Barbiturate Negative NEG [facility] Benzodiazepines Ql (U) Negative NEG [facility] Cannabinoids Screen Ql (U) Negative NEG [facility] Cocaine Metabolite Negative NEG [facility] Methadone Confirm (Hu) [Mass/Vol] Negative NEG [facility] Methamphetamine Confirm (Hu) [Mass/Vol] Negative NEG [facility] Opiates Ql (U) Negative NEG [facility] Phencyclidine Ql (U) Negative NEG [facility] TRICYCLIC ANTIDEPRESSANTS, URINE Negative NEG [facility] Comment on above: APAP- CUT-OFF CONCEN TRATION [...] 1.7 mg/dL 1.7 - 2 .8 mg/dL [facility] Otheron 05-31-2019 Interpretation and review of laboratory results Abnormal [facility] SALICYLATE LEVELon 9 Salicylates [Mass/Vol] mg/dL Low 10 - 30 mg/dL [facility] TSHon 05-31-2019 TSH Qn 2.466 m[IU]/L [facility] URINALYSIS W/ MICRO W/ REFLE X C AND Son 05-31-2019 Appearance (U) CLEAR CLEAR [facility] Bacteria LM Ql (Urine sed) NONE SEEN NONE SEEN [facility] BILIRUBIN, URINE DIPSTICK Negative NEGATIVE [facility] BLOOD, URINE DIPSTICK Negative NEGATIVE [facility] C & S INDICATED NO NO [facility] Casts LM.LPF (Urine sed) [#/Area] PRESENT NONE SEEN /lpf [facility] Color (U) YELLOW YELLOW [facility] Epithelial cells.squamous LM.HPF (Urine sed) [#/Area] NONE SEEN NONE SEEN /hpf [facility] Fine Granular Casts LM.LPF (Urine sed) [#/Area] 0-2 NONE SEEN /lpf [facility] GLUCOSE, URINE DIPSTICK Negative NEGATIVE mg/dL [facility] Hyaline casts (Urine sed) [#/Area] 0-[address] [facility] KETONES, URINE DIPSTICK TRACE NEGATIVE mg/dL [facility] LEUKOCYTE ESTERASE, URINE DIPSTK Negative NEGATIVE [facility] Mucus Ql (Urine sed) 1+ THREADS NONE SEEN [facility] Nitrate Ql (U) Negative NEGATIVE [facility] PH, URINE DIPSTICK 5.5 [facility] Protein (U) [Mass/Vol] 30 mg/dL NEGATIVE [facility] RBC LM.HPF (Urine sed) [#/Area] 0-2 NONE SEEN /hpf [facility] SPECIFIC GRAVITY, URINE DIPSTICK 1.[address] [facility] Unidentified crystals LM Ql (Urine sed) NONE SEEN NONE SEEN [facility] UROBILINOGEN, URINE DIPSTICK 0.[address] [facility] WBC LM.HPF (Urine sed) [#/Area] 0-[address] [facility] XR SHOULDER RIGHT MIN 2 VIEW Son 05-31-2019 User, Interfaces - 05/31/2019 10:35 PM EDT Patient Name: JUSTICE ARANDA Patient NRM: [id number] Patient : 1970 Examination:XR SHOULDER RIGHT MIN [...] Guaman MD. on May 31 2019 10:35:11:040PM [facility] Patient Name: JUSTICE ARANDA Patient NRM: [id number] Patient : 1970 Examination:XR SHOULDER RIGHT MIN [...] are intact. There is normal bone mineralization. [facility] IMPRESSION: No fract ure or misalignment is seen. If symptoms persist, CT and/or MRI may provide further evaluation. Electronically Signed By: Shane Guaman MD. on May 31 2019 10:35:11:040PM [facility] ACETONE, SERUM, KETONESon KETONES,SERUM Negative NEGATIVE [facility] CBC, EDIF, PLATELETon 2018 Basophils/100 WBC (Bld) 1.1 % 0 - 3 % [facility] Eosinophils/100 WBC (Bld) 2.1 % 0 - 4 % [facility] Erythrocyte distribution width (RBC) [Ratio] 12.8 % 11.5 - 14.5 % [facility] Hematocrit (Bld) [Volume fraction] 40.0 % Low 42 - 52 % [facility] Hemoglobin (Bld) [Mass/Vol] 14.3 g/dL 14 - 18 g/dL [facility] Lymphocytes/100 WBC (Bld) 33.1 % 20.5 - 51.1 % [facility] MCH (RBC) [Entitic mass] 33.2 pg High 28 - 32 pg [facility] MCHC (RBC) [Mass/Vol] 35.7 g/dL 33 - 3 7 g/dL [facility] MCV (RBC) [Entitic vol] 92.9 fL 80 - 94 fL [facility] Monocytes/100 WBC (Bld) 7.2 % 0 - 13 % [facility] Neutrophils/100 WBC (Bld) 56.5 % 42.2 - 75.2 % [facility] Platelets (Bld) [#/Vol] 147 10*3/uL [facility] RBC (Bld) [#/Vol] 4.31 10*6/uL Low [facility] SCAN SLIDE NO NO [facility] WBC (Bld) [#/Vol] 4.6 10*3/uL Low [facility] CKon 05-26-2019 CK [Catalytic activity/Vol] 125 U/L 38 - 174 U/L [facility] COMPREHENSIVE METABOLIC PANE Rudolph 05-26-2019 Albumin BCG dye [Mass/Vol] 3.7 g/dL 3.5 - 5 g/dL [facility] Albumin/Globulin [Mass ratio] 1.1 {ratio} Low [facility] ALP [Catalytic activity/Vol] 53 U/L 38 - 126 U/L [facility] ALT No additional P-5'-P [Catalytic activity/Vol] 19 U/L 10 - 40 U/L [facility] AST [Catalytic activity/Vol] 21 U/L 10 - 42 U/L [facility] Bilirubin [Mass/Vol] 1.1 mg/dL 0.3 - 1 .2 mg/dL [facility] Calcium [Mass/Vol] 8.7 mg/dL 8.4 - 10. 2 mg/dL [facility] Chloride [Moles/Vol] 106 mmol/L [facility] CO2 [Moles/Vol] 25 mmol/L [facility] Creatinine [Mass/Vol] 0.8 mg/dL 0.4 - 1.1 mg/dL [facility] GFR/1.73 sq M.predicted MDRD (S/P/Bld) [Vol rate/Area] mL/min/{1.73_m2} [facility] Comment on above: Estimated Glomerular filtration Rate Reference Ranges: GFR, mL/min/1.73m2 >= 60 Adequate 30 - 59 Moderately decreased GFR 15 - 29 Severely decreased GFR <18 Kidney failure (or dialysis) GFR calculated using abbreviated MDRD formula. MDRD equation not suitable for patients who are under 18, have unstable creatinine concentrations Globulin (S) [Mass/Vol] 3.3 g/dL 2.9 - 3.3 g/dL [facility] Glucose [Mass/Vol] 168 mg/dL High 70 - 126 mg/dL [facility] Potassium [Moles/Vol] 4.1 mmol/L [facility] Protein [Mass/Vol] 7.0 g/dL 6.4 - 8.3 g/dL [facility] Sodium [Moles/Vol] 138 mmol/L [facility] Urea nitrogen [Mass/Vol] 14 mg/dL 7 - 22 mg/dL [facility] DRUGS OF ABUSE PROFILE, URIN Lupillo 05-26-2019 Acetaminophen+Phenacet in Screen Ql (U) Negative NEG [facility] Amphetamine cutoff Screen (U) [Mass/Vol] Negative NEG [facility] Barbiturate Negative NEG [facility] Benzodiazepines Ql (U) Negative NEG [facility] Cannabinoids Screen Ql (U) Negative NEG [facility] Cocaine Metabolite Negative NEG [facility] Methadone Confirm (Hu) [Mass/Vol] Negative NEG [facility] Methamphetamine Confirm (Hu) [Mass/Vol] Negative NEG [facility] Opiates Ql (U) Negative NEG [facility] Phencyclidine Ql (U) Negative NEG [facility] TRICYCLIC ANTIDEPRESSANTS, URINE Negative NEG [facility] Comment on above: APAP- CUT-OFF CONCEN TRATION [...] Monge MD Authorized by: Leilani Monge MD [place] Protocol Immediately prior to procedure a time out was called to verify the correct patient, procedure, equipment, respiratory support technician and site/side marked as required. Additional Notes EKG sinus bradycardia with ventricular rate of 56 bpm, [place] interval 186 ms, QRS duration 82 ms, QT/QTc 430/414 ms. Inferior lead changes. [facility] MAGNESIUMon 05-26-2019 Magnesium [Mass/Vol] 1.6 mg/dL Low 1.7 - 2 .8 mg/dL [facility] Otheron 05-26-2019 Interpretation and review of laboratory results Abnormal [facility] PH VENOUSon 05-26-2019 pH (BldV) 7.360 [pH] [facility] PROTIME-INRon 05-26-2019 INR Coag (PPP) [Relative time] 1.0 {INR} [facility] Comment on above: INR: ------INDICATION INR Ref Range DVT, PE, AF, AMI, tissue heart valve 2.0 - 3.0 Mechanical prosthetic valves 2.5 - 3.5 PT Coag (PPP) [Time] 11.7 s [facility] TROPONINon 05-26-2019 Troponin I.cardiac [Mass/Vol] ng/mL 0 - 0.06 ng/mL [facility] Comment on above: TROPONIN REFERENCE R ANGES: [...] Ql (Urine sed) NONE SEEN NONE SEEN [facility] C & S INDICATED NO NO [facility] Casts LM.LPF (Urine sed) [#/Area] NONE SEEN NONE SEEN /lpf [facility] Epithelial cells.squamous LM.HPF (Urine sed) [#/Area] NONE SEEN NONE SEEN /hpf [facility] Mucus Ql (Urine sed) 1+ THREADS NONE SEEN [facility] RBC LM.HPF (Urine sed) [#/Area] 0-2 NONE SEEN /hpf [facility] Unidentified crystals LM Ql (Urine sed) NONE SEEN NONE SEEN [facility] WBC LM.HPF (Urine sed) [#/Area] NONE SEEN [facility] URINALYSIS WITH REFLEX CULTU REon 05-26-2019 Appearance (U) CLEAR CLEAR [facility] BILIRUBIN, URINE DIPSTICK Negative NEGATIVE [facility] BLOOD, URINE DIPSTICK Negative NEGATIVE [facility] Color (U) YELLOW YELLOW [facility] GLUCOSE, URINE DIPSTICK 100 mg/dL NEGATIVE [facility] KETONES, URINE DIPSTICK Negative NEGATIVE mg/dL [facility] LEUKOCYTE ESTERASE, URINE DIPSTK Negative NEGATIVE [facility] Microscopic observation LM Nom (Urine sed) YES NO [facility] Nitrate Ql (U) Negative NEGATIVE [facility] PH, URINE DIPSTICK 5.0 [facility] Protein (U) [Mass/Vol] Negative NEGAT DOMONIQUE mg/dL [facility] SPECIFIC GRAVITY, URINE DIPSTICK >=1.030 [facility] UROBILINOGEN, URINE DIPSTICK 0.2 [facility] CBC, EDIF, PLATELETon 2018 Basophils/100 WBC (Bld) 1.0 % 0 - 3 % [facility] Eosinophils/100 WBC (Bld) 2.3 % 0 - 4 % [facility] Erythrocyte distribution width Ratio (RBC) 12.3 % 11.5 - 14.5 % [facility] Hematocrit Volume Fraction (Bld) 39.2 % Low 42 - 52 % [facility] Hemoglobin mass conc (Bld) 14.2 g/dL 14 - 18 g/dL [facility] Interpretation and review of laboratory results Abnormal [facility] Lymphocytes/100 WBC (Bld) 34.9 % 20.5 - 51.1 % [facility] MCH Entitic mass (RBC) 33.4 pg High 28 - 32 pg [facility] MCHC mass conc (RBC) 36.1 g/dL 33 - 37 g/dL [facility] MCV Entitic volume (RBC) 92.3 fL 80 - 94 fL [facility] Monocytes/100 WBC (Bld) 6.3 % 0 - 13 % [facility] Neutrophils/100 WBC (Bld) 55.5 % 42.2 - 75.2 % [facility] Platelets #/vol (Bld) 149 10*3/uL [facility] RBC #/vol (Bld) 4.25 10*6/uL Low [facility] SCAN SLIDE NO NO [facility] WBC corrected for nucl RBC Auto #/vol (Bld) 4.5 Low [facility] COMPREHENSIVE METABOLIC PANE Rudolph 05-03-2019 Albumin Bromocresol green (BCG) dye binding method mass conc 3.5 g/dL 3.5 - 5 g/dL [facility] Albumin/Globulin mass ratio 1.1 {ratio} Low [facility] ALP enzyme act/vol 59 U/L 38 - 126 U/L [facility] ALT No additional P-5'-P enzyme act/vol 25 U/L 10 - 40 U/L [facility] AST enzyme act/vol 21 U/L 10 - 42 U/L [facility] Bilirubin mass conc 0.8 mg/dL 0.3 - 1. 2 mg/dL [facility] Calcium mass conc 8.2 mg/dL Low 8.4 - 10.2 mg/dL [facility] Chloride molar conc 104 mmol/L [facility] CO2 molar conc 25 mmol/L [facility] Creatinine mass conc 0.7 mg/dL 0.4 - 1 .1 mg/dL [facility] GFR/1.73 sq M.predicted MDRD vol rate/area mL/min/{1.73_m2} [facility] Comment on above: Estimated Glomerular filtration Rate Reference Ranges: GFR, mL/min/1.73m2 >= 60 Adequate 30 - 59 Moderately decreased GFR 15 - 29 Severely decreased GFR <18 Kidney failure (or dialysis) GFR calculated using abbreviated MDRD formula. MDRD equation not suitable for patients who are under 18, have unstable creatinine concentrations Globulin mass conc (S) 3.2 g/dL 2.9 - 3.3 g/dL [facility] Glucose mass conc 208 mg/dL High 70 - 126 mg/dL [facility] Interpretation and review of laboratory results Abnormal [facility] Potassium molar conc 3.8 mmol/L [facility] Protein mass conc 6.7 g/dL 6.4 - 8.3 g/dL [facility] Sodium molar conc 137 mmol/L [facility] Urea nitrogen mass conc 14 mg/dL 7 - 22 mg/dL [facility] HEAD WITHOUT CONTRASTon 0 05-03-2019 User, Interfaces - 05/03/2019 9:33 AM EDT Patient Name: JUSTICE ARANDA JR. Patient Patient : 1970 Examination: [facility] CT HEAD WITHOUT CONTRAST Date of Exam: [...] non-contrast CT head. No acute intracranial changes. [facility] Patient Name: AYAZ ARANDA JR. Patient Patient : 1970 Examination: [facility] CT HEAD WITHOUT CONTRAST Date of Exam: [...] appear normally pneumatized. The skull appears normal. [facility] IMPRESSION: Normal non-contrast CT head. No acute intracranial changes. [facility] U/A WITH MICROSCOPICon 05-03 Bacteria LM Ql (Urine sed) TRACE NONE SEEN [facility] C & S INDICATED NO NO [facility] Casts LM.LPF #/area (Urine sed) NONE SEEN NONE SEEN /lpf [facility] Epithelial cells.squamous LM.HPF #/area (Urine sed) 0-2 NONE SEEN /hpf [facility] Mucus Ql (Urine sed) NONE SEEN NONE SEEN [facility] RBC LM.HPF #/area (Urine sed) 0-2 NONE SEEN /hpf [facility] Unidentified crystals LM Ql (Urine sed) NONE SEEN NONE SEEN [facility] WBC LM.HPF #/area (Urine sed) 0-2 [facility] URINALYSIS WITH REFLEX CULTU REon 05-03-2019 Appearance Nom (U) CLEAR CLEAR VAN Purple BILIRUBIN, URINE DIPSTICK Negative NEGATIVE [facility] BLOOD, URINE DIPSTICK Negative NEGATIVE [facility] Color Nom (U) YELLOW YELLOW [facility] GLUCOSE, URINE DIPSTICK 100 mg/dL NEGATIVE [facility] KETONES, URINE DIPSTICK Negative NEGATIVE mg/dL [facility] LEUKOCYTE ESTERASE, URINE DIPSTK Negative NEGATIVE [facility] Microscopic observation LM Nom (Urine sed) YES NO [facility] Nitrate Ql (U) Negative NEGATIVE [facility] PH, URINE DIPSTICK 6.0 [facility] Protein mass conc (U) Negative NEGATI VE mg/dL [facility] SPECIFIC GRAVITY, URINE DIPSTICK >=1.030 [facility] UROBILINOGEN, URINE DIPSTICK 0.2 [facility] Basic Metabolic Profon 11-25 (cont.) Normal [facility] Comment on above: Result Comment: Aver age GFR for 40-49 years old: 99 mL/min/1.73sq m Chronic Kidney Disease: <60 mL/min/1.73sq m Kidney failure: <15 mL/min/1.73sq m eGFR calculated using average adult body mass. Additional eGFR calculator available at: http://www.[employer]/multiple_crcl_2012.htm Performed By: #### C DP, BMP, TROPI #### [address] [place] [address] Anion gap [Moles/Vol] 10 mmol/L Normal 9- [facility] Comment on above: Performed By: #### C DP, BMP, TROPI #### [address] [place] [address] BUN/CRE Ratio 17 Normal 9-20 [facility] Comment on above: Performed By: #### C DP, BMP, TROPI #### [address] [place] [address] Calcium [Mass/Vol] 8.5 mg/dL Low 8.6-10.4 [facility] Comment on above: Performed By: #### C DP, BMP, TROPI #### [address] [place] [address] Chloride [Moles/Vol] 100 mmol/L Normal 98-107 [facility] Comment on above: Performed By: #### C DP, BMP, TROPI #### [address] [place] [address] CO2 [Moles/Vol] 27 mmol/L Normal 20-31 [facility] Comment on above: Performed By: #### C DP, BMP, TROPI #### [address] [place] [address] Creatinine [Mass/Vol] 0.84 mg/dL Normal 0.70-1.20 [facility] Comment on above: Performed By: #### C DP, BMP, TROPI #### [address] [place] [address] GFR, Amer >60 Normal >60 [facility] Comment on above: Performed By: #### C DP, BMP, TROPI #### [address] [place] [address] GFR,non Amer >60 Normal >60 [facility] Comment on above: Performed By: #### C DP, BMP, TROPI #### [address] [place] [address] Glucose [Mass/Vol] 213 mg/dL High 70-99 [facility] Comment on above: Performed By: #### C DP, BMP, TROPI #### [address] [place] [address] Potassium [Moles/Vol] 3.6 mmol/L Low 3.7-5.3 [facility] Comment on above: Performed By: #### C DP, BMP, TROPI #### [address] [place] [address] Sodium [Moles/Vol] 137 mmol/L Normal 135-144 [facility] Comment on above: Performed By: #### C DP, BMP, TROPI #### [address] [place] [address] Staging: Normal [facility] Comment on above: Result Comment: Stag e 1: Some kidney damage normal GFR Stage 2: Mild kidney damage GFR 60-89 Stage 3: Moderate kidney damage GFR 30-59 Stage 4: Severe kidney damage GFR 15-29 Stage 5: Severe kidney damage GFR <15 ESRD - chronic treatment by dialysis or transplant Performed By: #### C DP, BMP, TROPI #### [address] [place] [id number] Urea nitrogen [Mass/Vol] 14 mg/dL Normal 6-20 [facility] Comment on above: Performed By: #### C DP, BMP, TROPI #### [address] [place] [address] CBC with Diffon 11-25-2018 Abs. Basophil <0.03 Normal 0.00-0.20 [facility] Comment on above: Performed By: #### C DP, BMP, TROPI #### [address] [place], [facility]83 Abs.Imm.Granulocyte <0.03 Normal 0.00-0.30 [facility] Comment on above: Performed By: #### C DP, BMP, TROPI #### [address] [place] [address] Abs.Neutrophil (Seg) 1.92 k/uL Normal 1.50-8.10 [facility] Comment on above: Performed By: #### C DP, BMP, TROPI #### [address] [place] [address] Basophils/100 WBC (Bld) 0 % Normal 0-2 [facility] Comment on above: Performed By: #### C DP, BMP, TROPI #### [address] [place] [id number] Eosinophils (Bld) [#/Vol] 10*3/uL Normal 0.00-0.44 [facility] Comment on above: Performed By: #### C DP, BMP, TROPI #### [address] [place] [address] Eosinophils/100 WBC (Bld) 0 % Low 1-4 [facility] Comment on above: Performed By: #### C DP, BMP, TROPI #### [address] [place], [facility]83 Erythrocyte distribution width (RBC) [Ratio] 12.9 % Normal 11.8-14.4 [facility] Comment on above: Performed By: #### C DP, BMP, TROPI #### [address] [place], [facility]83 Hematocrit (Bld) [Volume fraction] 38.7 % Low 40.7-50.3 [facility] Comment on above: Performed By: #### C DP, BMP, TROPI #### [address] [place] [address] Hemoglobin (Bld) [Mass/Vol] 13.3 g/dL Normal 13.0-17.0 [facility] Comment on above: Performed By: #### C DP, BMP, TROPI #### [address] [place] [address] Immature granulocytes (Bld) [#/Vol] 0 % Normal 0 [facility] Comment on above: Performed By: #### C DP, BMP, TROPI #### [address] [place] [address] Lymphocytes (Bld) [#/Vol] 0.85 10*3/uL Low 1.10-3.70 [facility] Comment on above: Performed By: #### C DP, BMP, TROPI #### [address] [place] [address] Lymphocytes/100 WBC (Bld) 25 % Normal 24-43 [facility] Comment on above: Performed By: #### C DP, BMP, TROPI #### [address] [place] [address] MCH (RBC) [Entitic mass] 32.9 pg Normal 25.2-33.5 [facility] Comment on above: Performed By: #### C DP, BMP, TROPI #### [address] [place], [facility]83 MCHC (RBC) [Mass/Vol] 34.4 g/dL Normal 28.4-34.8 [facility] Comment on above: Performed By: #### C DP, BMP, TROPI #### [address] [place] [address] MCV (RBC) [Entitic vol] 95.8 fL Normal 82.6-102.9 [facility] Comment on above: Performed By: #### C DP, BMP, TROPI #### [address] [place] [address] Monocytes (Bld) [#/Vol] 0.58 10*3/uL Normal 0.10-1.20 [facility] Comment on above: Performed By: #### C DP, BMP, TROPI #### [address] [place] [address] Monocytes/100 WBC (Bld) 17 % High 3-12 [facility] Comment on above: Performed By: #### C DP, BMP, TROPI #### [address] [place] [address] Neutrophil (Seg) 57 % Normal 36-65 [facility] Comment on above: Performed By: #### C DP, BMP, TROPI #### [address] [place] [address] NRBC Automated 0.0 per 100 WBC Normal 0.0 [facility] Comment on above: Performed By: #### C DP, BMP, TROPI #### [address] [place] [address] Platelet mean volume (Bld) [Entitic vol] 10.8 fL Normal 8.1-13.5 [facility] Comment on above: Performed By: #### C DP, BMP, TROPI #### [address] [place] [address] Platelets (Bld) [#/Vol] 131 10*3/uL Low 138-453 [facility] Comment on above: Performed By: #### C DP, BMP, TROPI #### [address] [place] [address] RBC (Bld) [#/Vol] 4.04 10*6/uL Low 4.21-5.77 [facility] Comment on above: Performed By: #### C DP, BMP, TROPI #### [address] [place] [address] WBC (Bld) [#/Vol] 3.4 10*3/uL Low 3.5-11.3 [facility] Comment on above: Performed By: #### C DP, BMP, TROPI #### [address] [place] [address] Flu A/B Ag Detectionon 11-25 Flu A/B Ag Detection Specimen Descriptio n .NASOPHARYNGEAL SWAB Special Requests NOT REPORTED Direct Exam POSITIVE for Influenza A Antigen NEGATIVE for Influenza B Antigen Report Status FINAL 11/24/2018 Normal [facility] Comment on above: Performed By: #### F LUAD #### [address] [place] [address] Strep Gr A Direct Agon 11-25 Strep Gr A Direct Ag Specimen Descriptio n .THROAT Special Requests NOT REPORTED Direct Exam Rapid Strep A negative. A negative Rapid Group A Strep Screen result does not rule out the possibility of Group A Streptococci in the specimen. A Group A Strep DNA test is available upon request. Report Status FINAL 11/24/2018 Normal [facility] Comment on above: Performed By: #### S GPA #### [address] [place], [place] [phone] Troponinon 11-25-2018 Troponin I.cardiac [Mass/Vol] ng/mL Normal <0.03 [facility] Comment on above: Result Comment: Trop onin T results cannot be compared to Troponin-I results. Performed By: #### C DP, BMP, TROPI #### [address] [place] [address] Troponin I.cardiac [Mass/Vol] Normal [facility] Comment on above: Result Comment: Refe [...] By: #### C DP, BMP, TROPI #### [address] [place], [place] [id number] XR CHEST PORTABLEon 11-25-20 XR CHEST PORTABLE [...] La Garza MD 11/24/18 Final result Normal [facility] CBC with Diffon 11-24-2018 Auto Diff Performed NOT REPORTED Normal [facility] Comment on above: Performed By: #### C DP, BMP, TROPI #### [address] [place], [place] [phone] Platelets (Bld) [#/Vol] NOT REPORTED Normal [facility] Comment on above: Performed By: #### C DP, BMP, TROPI #### [address] [place] [address] RBC morphology finding Nom (Bld) NOT REPORTED Normal [facility] Comment on above: Performed By: #### C DP, BMP, TROPI #### [address] [place], [place] [id number] WBC Morphology NOT REPORTED Normal [facility] Comment on above: Performed By: #### C DP, BMP, TROPI #### [address] [place] [address] Troponinon 11-24-2018 Troponin I.cardiac [Mass/Vol] NOT REPORTED Normal 0-22 [facility] Comment on above: Performed By: #### C DP, BMP, TROPI #### [address] [place] [address] CNOVon 10-09-2018 CNOV Office Visit (UROLMN ) -- MANOJJUSTICE ([id number]) 1970 M Date Time Provider Department 10/09/18 1:30 PM KARY MENDEZ UROROSEANN During your visit today, we recorded the following information about you: Temperature Pulse Blood pressure 97.5 degrees 94/minute 135/81 Kary Mendez MD 10/09/2018 3:29 PM Signed [facility] NEW PATIENT HISTORY AND PHYSICAL EXAM PATIENT INFO: Justice Aranda 48 year old REFERRING M.D.: Dennis Mason MD [address] [place] [address] ====== HISTORY 48 year old male here for an ED consult. He has a med history of HTN, DM- recently started on Metformin and just began checking blood glucose. He had been in detention, reports sustaining a head injury Sep 2016. [...] this provides a half erection. [facility] reported that injections were not a [...] for internal providers or letter via the [employer] for external providers. HPI: Girlfriend [...] diet. Attestation: By signing my name below, I, Mela Deluna, attest that this documentation has been prepared under the direction and in the presence of Kary Mendez MD. Electronically signed: Alab[place] Urena, October 09, 2018 3:03 PM I, Kary Mendez MD, personally performed the services described in this documentation. All medical record entries made by the jessicaibnenita were at my direction and in my presence. I have reviewed the chart and discharge instructions (if applicable) and agree that the record reflects my personal performance and is accurate and complete. 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 Mason: I had the pleasure of seeing your patient today. Enclosed is a copy of his office visit note. Thank you for the opportunity of sharing in his care. Sincerely yours, MD JORGE ALBERTO Burciaga/ms Enc: office note Encounter Status:Closed by KARY MENDEZ MD on 10/09/18 Normal [facility] PROGRESSon 10-09-2018 PROGRESS HNO ID: [id number] Author: Kary Mendez Service: (none) Author Type: Physician Type: Progress Notes Filed: 10/09/2018 3:29 PM Note Text: [facility] NEW PATIENT HISTORY AND PHYSICAL EXAM PATIENT INFO: Justice Aranda 48 year old REFERRING M.D.: Dennis Mason MD [address] [place] [address] ====== HISTORY 48 year old male here for an ED consult. He has a med history of HTN, DM- recently started on Metformin and just began checking blood glucose. He had been in detention, reports sustaining a head injury Sep 2016. [...] however; this provides a half erection. His [facility] urologist reported that injections were not [...] for internal providers or letter via the [employer] for external providers. HPI: Girlfriend present [...] diet. Attestation: By signing my name below, IeMla, attest that this documentation has been prepared under the direction and in the presence of Kary Mendez MD. Electronically signed: [place] Urena, October 09, 2018 3:03 PM IKary MD, personally performed the services described in this documentation. All medical record entries made by the jessicaibe were at my direction and in my presence. I have reviewed the chart and discharge instructions (if applicable) and agree that the record reflects my personal performance and is accurate and complete. Kary Mendez MD October 09, 2018 3:03 PM Normal [facility] Urinalysison 10-09-2018 Bilirubin, Urine Negative Normal [facility] Comment on above: Performed By: #### U A #### [facility] [address] [place] [phone] Clarity (U) Clear Normal Clear [facility] Comment on above: Performed By: #### U A #### [facility] [address] [place] [phone] Color (U) Yellow Normal Yellow [facility] Comment on above: Performed By: #### U A #### [place] [address] [place] [phone] Comments SEE COMMENT Normal [facility] Comment on above: Result Comment: Micr oscopic not warranted Performed By: #### U A #### [facility] [address] [place] [phone] Glucose Ql (U) >=1000 Critically abnormal Negative [facility] Comment on above: Performed By: #### U A #### [facility] [address] [place] [phone] Hemoglobin/Blood,Ur Negative Normal Negative [facility] Comment on above: Performed By: #### U A #### [facility] [place] [address] Ketones Ql (U) Negative Normal Negative [facility] Comment on above: Performed By: #### U A #### [facility] [address] [place], [place] [address] Leukest Negative Normal Negative [facility] Comment on above: Performed By: #### U A #### [place] [address] Nitrite Ql (U) Negative Normal Negative [facility] Comment on above: Performed By: #### U A #### [place] [address] pH (Bld) 5.5 Normal 4.5-8.0 [facility] Comment on above: Performed By: #### U A #### [place] [address] Protein (U) [Mass/Vol] Negative Normal Negative [facility] Comment on above: Performed By: #### U A #### [place] [address] Specific Gary, Ur 1.018 Normal 1.005-1 .03 0 [facility] Comment on above: Performed By: #### U A #### [address] [address] Urine Zach Comment SEE COMMENT Normal [facility] Comment on above: Result Comment: N/A Performed By: #### U A #### [place] [phone] Urobilinogen Qn (U) Normal Normal Normal [facility] Comment on above: Performed By: #### U A #### [address] [address] Vital Signs Date Time Vital Sign Value Performing Clinician Facility 03-22-2024 15:45-0400 Diastolic blood pressure 67 mm[Hg] Gloria Cardona MD Work Phone: [facility] 03-22-2024 15:45-0400 Heart rate 80 /min Gloria Cardona MD Work Phone[facility] [employer] [facility] 03-22-2024 15:45-0400 Respiratory rate 14 /min Gloria Cardona MD Work Phone: [facility] [employer] [facility] 03-22-2024 15:45-0400 SaO2% (BldA) [Mass fraction] 99 % Gloria Cardona MD Work Phone: [facility] 03-22-2024 15:45-0400 Systolic blood pressure 108 mm[Hg] Gloria Cardona MD Work Phone: [facility] [employer] [facility] 03-22-2024 12:47-0400 Body height 180.3 cm Gloria Cardona MD Work Phone: [facility] 03-22-2024 12:47-0400 Body mass index (BMI) [Ratio] 24.41 kg/m2 Gloria Cardona MD Work Phone: [facility] 03-22-2024 12:47-0400 Body weight 79.38 kg Gloria Cardona MD Work Phone: [facility] 03-22-2024 12:41-0400 Body temperature 99.19 [degF] Gloria Cardona MD Work Phone: [facility] [employer] [facility] 08-15-2023 10:16-0400 Diastolic blood pressure 76 mm[Hg] [...] 80.2 kg DO Crow Dean Work Phone: [facility] 07-23-2023 05:21-0400 Diastolic blood pressure 74 mm[Hg] DO Crow Dean Work Phone: [facility] [...] 23:53-0400 Body temperature 98.6 [degF] DO Crow Sumanth Work Phone: [facility] 07-22-2023 23:53-0400 Body weight 79 kg DO Crow Sumanth Work Phone: [facility] 06-30-2023 12:41-0400 Diastolic blood pressure 82 mm[Hg] DO Crow Sumanth Work Phone: [facility] 06-30-2023 12:41-0400 Heart rate 71 /min DO Crow Sumanth Work Phone: [facility] 06-30-2023 12:41-0400 Respiratory rate 18 /min DO Crowmicky Dean Work Phone: [facility] 06-30-2023 12:41-0400 SaO2% (BldA) [Mass fraction] 99 % DO Crow Dean Work Phone: [facility] 06-30-2023 12:41-0400 Systolic blood pressure 178 mm[Hg] DO Crow Dean Work Phone: [facility] 06-30-2023 10:17-0400 Body height 180.34 cm DO Crow Dean Work Phone: [facility] 06-30-2023 10:17-0400 Body temperature 97.8 [degF] DO Crow Dean Work Phone: [facility] 06-30-2023 10:17-0400 Body weight 83.95 kg DO Crow Dean Work Phone: [facility] 06-24-2023 11:31-0400 Diastolic blood pressure 54 mm[Hg] DO Crow Sumanth Work Phone: [facility] 06-24-2023 11:31-0400 Heart rate 89 /min DO Crow Sumanth Work Phone: [facility] 06-24-2023 11:31-0400 Respiratory rate 20 /min DO Crow Sumanth Work Phone: [facility] 06-24-2023 11:31-0400 SaO2% (BldA) [Mass fraction] 99 % DO Crowmicky Dean Work Phone: [facility] 06-24-2023 11:31-0400 Systolic blood pressure 132 mm[Hg] DO Crow Sumanth Work Phone: [facility] 06-24-2023 09:44-0400 Body height 177.8 cm DO Crow Dean Work Phone: [facility] 06-24-2023 09:44-0400 Body temperature 98.6 [degF] DO Crowmicky Dean Work Phone: [facility] 06-24-2023 09:44-0400 Body weight 84.2 kg DO Crow Dean Work Phone: [facility] 05-05-2023 11:27-0400 Body temperature 98.4 [degF] DO Crow Dean Work Phone: [facility] 05-05-2023 11:27-0400 Diastolic blood pressure 70 mm[Hg] DO Crow Dean Work Phone: [facility] 05-05-2023 11:27-0400 Heart rate 81 /min DO Crow Dean Work Phone: [facility] 05-05-2023 11:27-0400 Respiratory rate 18 /min DO Crow Dean Work Phone: [facility] 05-05-2023 11:27-0400 SaO2% (BldA) [Mass fraction] 99 % DO Crowmicky Dean Work Phone: [facility] 05-05-2023 11:27-0400 Systolic blood pressure 123 mm[Hg] DO Crow Sumanth Work Phone: [facility] 05-05-2023 05:38-0400 Body weight 85.4 kg DO Crow Sumanth Work Phone: [facility] 05-04-2023 16:05-0400 Body height 154.94 cm DO Crow Sumanth [...] SaO2% (BldA) [Mass fraction] 97 % DO Crowmicky Dean Work Phone: [facility] 01-07-2023 21:30-0500 Systolic blood pressure 115 mm[Hg] DO Crowmicky Dean Work Phone: [facility] 01-07-2023 18:46-0500 Body height 180.34 cm DO Crow Dean Work Phone: [facility] 01-07-2023 18:46-0500 Body temperature 99.8 [degF] DO Crowmicky Dean Work Phone: [facility] 01-07-2023 18:46-0500 Body weight 83.75 kg DO Crow Dean Work Phone: [facility] 10-26-2022 10:30-0500 Diastolic blood pressure 69 mm[Hg] DO Crow Dean Work Phone: [facility] 10-26-2022 10:30-0500 Heart rate 68 /min DO Crow Dean Work Phone: [facility] 10-26-2022 10:30-0500 Respiratory rate 16 /min DO Crow Dean Work Phone: [facility] 10-26-2022 10:30-0500 SaO2% (BldA) [Mass fraction] 97 % DO Crow Dean Work Phone: [facility] 10-26-2022 10:30-0500 Systolic blood pressure 128 mm[Hg] DO Crow Sumanth Work Phone: [facility] 10-26-2022 09:12-0500 Body height 180.34 cm DO Crow Dean Work Phone: [facility] 10-26-2022 09:12-0500 Body temperature 98.9 [degF] DO Crow Sumanth Work Phone: [facility] 10-26-2022 09:12-0500 [...] Dean Work Phone: [facility] 10-11-2022 13:54-0500 Systolic blood pressure 138 mm[Hg] DO Crow Dean Work Phone: [facility] 10-11-2022 11:45-0500 Body height 180.34 cm DO Crow Dean Work Phone: [facility] 10-11-2022 11:45-0500 Body temperature 98.5 [degF] DO Crow Dean Work Phone: [facility] 10-11-2022 11:45-0500 Body weight 84.8 kg DO Crow Dean Work Phone: [facility] 06-06-2019 23:24-0400 Body Temperature 99.61 [degF] [employer] 06-06-2019 22:00-0400 BP Diastolic 63 mm[Hg] [employer] 06-06-2019 22:00-0400 BP Systolic 121 mm[Hg] Ivett Dixon [employer] 06-06-2019 22:00-0400 Pulse Oximetry 96 % [employer] 06-06-2019 21:39-0400 BMI (Body Mass Index) 27.89 kg/m2 Ivett Destiny [employer] 06-06-2019 21:39-0400 Body weight 90.72 kg Ivett Destiny [employer] 06-06-2019 21:39-0400 Height 180.3 cm [employer] 06-06-2019 21:37-0400 Pulse (Heart Rate) 96 /min [employer] 06-06-2019 21:37-0400 Respiratory Rate 16 /min Ivett Barbour [employer] 07-08-2019 19:06-0400 BMI (Body Mass Index) 27.91 kg/m2 Ivett Fan [employer] 06-04-2019 19:06-0400 Body weight 90.77 kg Ivett Fan [employer] 06-04-2019 19:06-0400 Height 180.3 cm Ivett Fan [employer] 06-04-2019 19:05-0400 Body Temperature 99.3 [degF] Ivett Fan [employer] 06-04-2019 19:05-0400 BP Diastolic 65 mm[Hg] Ivett Fan [employer] 06-04-2019 19:05-0400 BP Systolic 122 mm[Hg] Ivett Fan [employer] 06-04-2019 19:05-0400 Pulse (Heart Rate) 96 /min Ivett Fan [employer] 06-04-2019 19:05-0400 Respiratory Rate 18 /min Ivett Fan [employer] 05-31-2019 23:00-0400 BP Diastolic 71 mm[Hg] Ivett Fan [employer] 05-31-2019 23:00-0400 BP Systolic 107 mm[Hg] Ivett Fan [employer] 05-31-2019 21:55-0400 BMI (Body Mass Index) 30.1 kg/m2 Ivett Fan [employer] 05-31-2019 21:55-0400 Body weight 97.89 kg Ivett Fan [employer] 05-31-2019 21:55-0400 Height 180.3 cm Ivett Fan [employer] 05-31-2019 21:53-0400 Body Temperature 99.61 [degF] Ivett Fan [employer] 05-31-2019 21:53-0400 Pulse (Heart Rate) 98 /min Ivett Fan [employer] 05-31-2019 21:53-0400 Pulse Oximetry 96 % Ivett Fan [employer] 05-31-2019 21:53-0400 Respiratory Rate 18 /min Ivett Fna [employer] 05-26-2019 10:58-0400 BP Diastolic 80 mm[Hg] [facility] [employer] [facility] 05-26-2019 10:58-0400 BP Systolic 131 mm[Hg] [facility] [employer] [facility] 05-26-2019 10:58-0400 Pulse (Heart Rate) 61 /min [facility] [employer] [facility] 05-26-2019 10:58-0400 Pulse Oximetry 97 % [facility] [employer] [facility] 05-26-2019 10:00-0400 Respiratory Rate 12 /min [facility] 05-26-2019 09:14-0400 BMI (Body Mass Index) 28.45 kg/m2 [facility] 05-26-2019 09:14-0400 Body weight 92.53 kg [facility] [employer] [facility] 05-26-2019 09:14-0400 Height 180.3 cm [facility] [employer] [facility] 05-26-2019 09:12-0400 Body Temperature 97.59 [degF] [facility] 05-03-2019 11:00-0400 BP Diastolic 68 mm[Hg] [employer] [facility] 05-03-2019 11:00-0400 BP Systolic 130 mm[Hg] [facility] 05-03-2019 11:00-0400 Pulse Oximetry 99 % [facility] 05-03-2019 09:27-0400 Pulse (Heart Rate) 56 /min Vik [employer]a [facility] 05-[facility]-2019 08:54-0400 BMI (Body Mass Index) 26.08 kg/m2 [facility] 05-03-2019 08:54-0400 Height 180.3 cm [facility] 05-03-2019 08:54-0400 Weight 84.82 kg [facility] 05-03-2019 08:53-0400 Body Temperature 98.6 [degF] [facility] 05-03-2019 08:53-0400 Respiratory Rate 18 /min [facility] Encounters Encounter Date Encounter Type Care Provider Facility Start: 03-22-2024 End: 03-22-2024 Emergency department patient visit GLORIA CARDONA [facility] Start: 03-22-2024 End: 03-22-2024 Emergency department patient visit Gloria Cardona MD Work Phone: [facility] Comment on above: Nausea and vomiting, unspecified vomiting type (Primary Dx); Hypomagnesemia; Chronic GERD; Type 2 diabetes mellitus with hyperglycemia, without long-term current use of insulin (HCC); Dehydration Start: 01-16-2024 Orders Only Loy avitia DO Work Phone: [facility] Start: 01-04-2024 Clinisync Result Encounter Generic External Data Provider [facility] External Department Unsolicited Start: 01-04-2024 Clinisync Result Encounter Generic External Data Provider [facility] External Department Unsolicited Start: 01-04-2024 End: 01-04-2024 ambulatory Loy Campbell [facility] Work Phone: Start: 01-04-2024 End: 01-04-2024 Departed Referred DO Loy Campbell Work Phone: [facility] Start: 11-10-2023 End: 11-10-2023 ambulatory CROW DEAN Not Available Start: 11-02-2023 End: 10-02-2024 Telephone encounter Loy Campbell DO Work Phone: [facility] Start: 08-15-2023 End: 08-15-2023 Emergency department patient visit Crow Dean Facility:[facility] Start: 08-15-2023 End: 08-15-2023 Emergency department patient visit DO Crow Dean Work Phone: [facility]gency Room Work Phone: Start: 07-23-2023 End: 07-23-2023 Emergency department patient visit Crow Dean Facility:[facility] Start: 07-22-2023 End: 07-23-2023 Emergency department patient visit DO Crow Dean Work Phone: [facility] Work Phone: Start: 06-30-2023 End: 06-30-2023 Emergency department patient visit Crow Dean Facility:[facility] Start: 06-30-2023 End: 06-30-2023 Emergency department patient visit DO Crow Dean Work Phone: [facility] Work Phone: Start: 06-24-2023 End: 06-24-2023 Emergency department patient visit Crow Dean Facility:[facility] Start: 06-24-2023 End: 06-24-2023 Emergency department patient visit DO Crow Dean Work Phone: [facility] Work Phone: Start: 05-03-2023 End: 05-05-2023 Evaluation and management of inpatient Crow Dean Facility:[facility] Start: 05-03-2023 End: 05-05-2023 Evaluation and management of inpatient DO Crow Dean Work Phone: [facility] [place] [facility] Work Phone: Start: 01-07-2023 End: 01-07-2023 Emergency department patient visit DO Crow Dean Work Phone: [facility] Work Phone: Start: 11-10-2022 End: 11-10-2022 ambulatory DO Crow Dean Work Phone: [facility] Work Phone: Start: 11-10-2022 End: 11-10-2022 Patient encounter procedure DO Crow Dean Work Phone: [facility]-CT Scan [facility] [place] Start: 11-04-2022 End: 11-04-2022 ambulatory DO Crow Dean Work Phone: [facility] Work Phone: Start: 11-04-2022 End: 11-04-2022 Patient encounter procedure DO Crow Dean Work Phone: [facility]Lab [facility] [place] Start: 10-26-2022 End: 10-26-2022 Emergency department patient visit DO Crow Dean Work Phone: [facility]-Emergency Room Start: 10-13-2022 End: 10-13-2022 Emergency department patient visit DO Crow Dean Work Phone: [facility]Emergency [facility] Start: 10-11-2022 End: 10-11-2022 Emergency department patient visit DO Crow Dean Work Phone: [facility]Emergency Room Start: 10-01-2019 Patient encounter procedure SHAMOKIN DAM Mulu [facility] Start: 10-01-2019 End: 10-01-2019 Patient encounter procedure Loy Abreu Work Phone: [employer] [facility] Comment on above: Tear of ulnar collat eral ligament of right elbow, initial encounter (Primary Dx); Elbow pain, chronic, right Start: 09-25-2019 End: 09-25-2019 Telephone encounter Sofiya Bijantahmina Work Phone: [employer] Comment on above: Elbow Pain Start: 09-24-2019 Patient encounter procedure SHAMOKIN DAM Mulu [facility] Start: 09-24-2019 End: 09-24-2019 Patient encounter procedure Loy Abreu Work Phone: [employer] Comment on above: Tear of ulnar collat eral ligament of right elbow, initial encounter (Primary Dx); Elbow pain, chronic, right Start: 09-18-2019 End: 09-18-2019 Patient encounter procedure Loy Abreu Work Phone: [employer] Comment on above: Right elbow pain (Pr imary Dx) Start: 08-14-2019 Patient encounter status DO Crow Dean Work Phone: [facility] Start: 06-06-2019 End: 06-07-2019 Emergency department patient visit Ivett Fan Work Phone: [facility] Start: 06-04-2019 End: 06-04-2019 Emergency department patient visit Ivett Fan Work Phone: [facility] Start: 06-01-2019 End: 06-01-2019 Outside Orders Historical Provider [facility] Registration Comment on above: Swelling of right el bow Arrived Start: 05-31-2019 End: 05-31-2019 Emergency department patient visit Ivett Fan Work Phone: [facility] Start: 05-28-2019 End: 05-28-2019 Outside Orders Historical Provider [employer] [facility] Start: 05-26-2019 End: 05-26-2019 Emergency department patient visit Leilani Monge Work Phone: [facility] Start: 05-03-2019 End: 05-03-2019 Emergency department patient visit Vik Mendosa Work Phone: [facility] Start: 11-24-2018 End: 11-25-2018 Emergency department patient visit [facility] Procedures Date Procedure Procedure Detail Performing Clinician Start: 03-22-2024 Drug screen, single Leandra Cardona MD Work Phone: Start: 03-22-2024 Urnls dip stick/tabl et rgnt auto w/o microscopy Gloria Cardona MD Work Phone: Start: 03-22-2024 Anion gap [Moles/Vol] R olegario Cardona MD Work Phone: Start: 03-22-2024 Comprehensive metabolic panel Gloria Cardona MD Work Phone: Start: 03-22-2024 GLOMERULAR FILTRATIO N RATE, ESTIMATED Gloria Cardona MD Work Phone: Start: 03-22-2024 Ecg routine ecg w/le ast 12 lds w/i&r Gloria Cardona MD Work Phone: Start: 01-04-2024 Level i surg patholo gy gross examination only Not In System Ref Prov Start: 01-04-2024 [facility] PYLORI TISSUE Gen errol External Data Provider Start: 01-04-2024 Colonoscopy Loy diaz DO Work Phone: Start: 11-02-2023 Colonoscopy Loy diaz DO Work Phone: Start: 07-23-2023 Plain chest X-ray DO Alexander [...] 06-01-2019 Radiography of elbow Sc catherine W Walter Work Phone: Start: 06-01-2019 OUTSIDE RADIOLOGY Histo rical Provider Start: 06-01-2019 Radiography of shoulder Ivett Fan Work Phone: Start: 06-01-2019 Assay of acetaminophen Ivett Fan Work Phone: Start: 06-01-2019 Assay of ethanol Ivett Fan Work Phone: Start: 06-01-2019 Assay of magnesium Missy la L Destiny Fan Work Phone: Start: 06-01-2019 Assay of [...] Phone: Start: 05-26-2019 Assay of troponin quantitative Leilani Monge Work Phone: Start: 05-26-2019 CBC, EDIF, PLATELET Say jorge Monge Work Phone: Start: 05-26-2019 Comprehensive metabolic panel Leilani Monge Work Phone: Start: 05-26-2019 Creatine kinase total S ayjorge Monge Work Phone: Start: 05-26-2019 Ketone bodies serum qualitative Sayjorge Monge Work Phone: Start: 05-26-2019 PH VENOUS Sayed Nenita Sa anya Work Phone: Start: 05-26-2019 Prothrombin time Sayed Nenita Monge Work Phone: Start: 05-26-2019 DRUGS OF ABUSE PROFILE, URINE Sayed Nenita Monge Work Phone: Start: 05-26-2019 URINALYSIS WITH REFL EX CULTURE Sayjorge Monge Work Phone: Start: 05-26-2019 Urnls dip stick/tabl et reagent auto microscopy Leilani Monge Work Phone: Start: 05-26-2019 Standard ECG Leilani joyner Work Phone: Start: 05-03-2019 CT of entire head Vik Mendosa Work Phone: Start: 05-03-2019 URINALYSIS WITH REFL EX CULTURE Vik Mendosa Work Phone: Start: 05-03-2019 Urnls dip stick/tabl et reagent auto microscopy Vik Mendosa Work Phone: Start: 05-03-2019 CBC, EDIF, PLATELET Ran jose Mendoas Work Phone: Start: 05-03-2019 Comprehensive metabolic panel [...] 11-24-2018 Blood count complete auto&auto difrntl wbc WALETR CARONE Start: 11-24-2018 Troponin I.cardiac [Mass/Vol] WALTER CARONE Start: 11-24-2018 INSERT PERIPHERAL IV HE ATHER CARONE Start: 11-24-2018 TELEMETRY MONITORING HE ATHER CARONE Start: 11-24-2018 VITAL SIGNS WALTER CA SHAKIRA Start: 11-24-2018 Glucose quantitative blood xcpt reagent strip WALTER CARONE Start: 11-24-2018 POCT GLUCOSE WALTER CA SHAKIRA Plan of Treatment Date Care Activity Detail Author Start: 01-04-2034 Screening for malignant neoplasm of colon Colonoscopy [facility] Start: 11-02-2033 Screening for malignant neoplasm of colon Colonoscopy [facility] Start: 04-18-2030 DTaP,Tdap and Td Vaccines (2 - Td or Tdap) DTaP,Tdap and Td Vaccines (2 - Td or Tdap) [facility] Start: 04-18-2030 DTaP/Tdap/Td vaccine (2 - Td or Tdap) DTaP/Tdap/Td vaccine (2 - Td or Tdap) [facility] Start: 02-11-2025 End: 02-11-2025 Patient encounter procedure 02/11/2025 8:00 AM EDT [facility] [address] [place] [address] Crow Dean DO [address] [place] [address] [facility] Start: 12-09-2024 Glaucoma screening Diabetes: Retinopathy Screening [facility] Start: 10-31-2024 Tobacco Screening Tobacco Screening [facility] Start: 10-27-2024 Adult BMI Screening Adult BMI Screening [facility] Start: 07-29-2024 COVID-19 Vaccine ( season) COVID-19 Vaccine ( season) [facility] Start: 07-29-2024 Influenza vaccination Influenza Vaccine [facility] Start: 02-07-2024 Hemoglobin A1c measurement Diabetes: Hemoglobin A1C [facility] Start: 11-04-2023 Urine screening for protein Diabetes: Urine Protein Screening [facility] Start: 07-29-2023 COVID-19 Vaccine ( season) COVID-19 Vaccine ( season) [facility] Start: 07-23-2023 Plain chest X-ray XR chest [...] DO [address] [place] [address] Sam Huang, OT [address] [place] [address] [facility] Start: 10-09-2019 End: 10-09-2019 Rehab Services Visit 10/09/2019 Rehab Services Visit Occupational Therapy Loy Abreu, DO [address] [place] [address] Sofiya Avina, OT [address] [place] [address] [phone] [facility] Start: 10-08-2019 End: 10-08-2019 Rehab Services Visit 10/08/2019 Rehab Services Visit Occupational Therapy Loy Abreu, DO [address] [place] [address] Pat Goss PARKS RECREATION DIRECTOR [address] [place] [address] [facility] Start: 10-03-2019 End: 10-03-2019 Rehab Services Visit 10/03/2019 Rehab Services Visit Occupational Therapy Loy Abreu, [address] [place] [address] Pat Goss PARKS RECREATION DIRECTOR [address] [place] [address] [facility] Start: 10-01-2019 End: 10-01-2019 Rehab Services Visit 10/01/2019 Rehab Services Visit Occupational Therapy Loy Abreu, DO [address] [place] [address] [phone] Pat Goss, PARKS RECREATION DIRECTOR [address] [place] [address] [facility] Start: 09-24-2019 End: 09-24-2019 Rehab Services Visit 09/24/2019 Rehab Services Visit Occupational Therapy Loy Abreu, DO [address] [place] [address] [phone] Mona Lynch, OT [address] [place] [address] [phone] [facility] Start: 07-29-2019 Influenza vaccination [facility] Start: 2019 Administration of varicella zoster vaccine Zoster (Shingles) Vaccine (1 of 2) [facility] Start: 2019 Colonoscopy COLON CANCER SCREENING DISCUSSION [facility] Start: 2019 Prostate specific antigen measurement PROSTATE CANCER SCREENING DISCUSSION [facility] Start: 2019 Shingles vaccine (1 of 2) Shingles vaccine (1 of 2) [facility] Start: 2019 Zoster vaccine hzv live for subcutaneous use ZOSTER (SHINGLES) VACCINE (1 of 2) [facility] Start: 2014 Screening for malignant neoplasm of colon [facility] Start: 2009 Fasting lipid profile LIPID SCREENING [facility] Start: 2009 Lipid panel Lipids [facility] Start: 1988 Third diphtheria, tetanus and acellular pertussis (DTaP) vaccination TDAP (ADULT) [facility] Start: 1987 Adult BMI Follow Up Plan Adult BMI Follow Up Plan [facility] Start: 1987 Hepatitis C screening Hepatitis C screen [facility] Start: 1987 Tetanus vaccination TETANUS [facility] Start: 1984 HIV screening HIV screen [facility] [employer] [facility] Start: 1982 HIV screening HIV SCREENING DISCUSSION [facility] Start: 1981 Depression Screen Depression Screen [facility] Start: 1981 Depression Screening Depression Screening [facility] Start: 1969 COVID-19 Vaccine (#1) COVID-19 Vaccine (#1) [facility] Start: 1969 Hepatitis B vaccine (1 of 3 - 3-dose series) Hepatitis B vaccine (1 of 3 - 3-dose series) [facility] Start: 1969 Screening for malignant neoplasm of colon [facility] Start: 1969 Tobacco Counseling Tobacco Counseling [facility] ALCOHOL (ETHANOL),BLOOD ALCOHOL (ETHANOL),BLOOD Lab STAT 05/26/2019 9:48 AM EDT [facility] EKG 12 Lead EKG 12 Lead ECG Routine 03/22/2024 12:29 PM EDT [facility] Patient Education [facility] Work Phone: Patient referral [facility] Work Phone: Immunizations Immunization Date Immunization Notes Care Provider [facility] 11-10-2023 Influenza, injectabl e, Madin Audrey Canine Kidney, preservative free, quadrivalent Generic Provider [facility] 11-10-2023 influenza virus vaccine, unspecified formulation Loy Campbell DO Work Phone: [facility] 04-18-2020 tetanus toxoid, redu wendi diphtheria toxoid, and acellular pertussis vaccine, adsorbed DO Crow Dean Work Phone: [facility] Payers Date Payer Category Payer Self-pay [id number] 2020 Medicaid [id number] 2020 Medicaid HMO [employer] [id number] 2019 Unknown [id number] 2019 Unknown [place] [facility] OR OTHER [place] OR [facility] OR OTHER xxxxxxxxx 2019-Present xxxxxxxxx [id number] 2019 Unknown [id number] 2019 Unknown ANTHEM ANTHEM HM O PPO POS xxxxxxxxxxxx 2019-Present xxxxxxxxxxxx [id number] 2017 Unknown [id number] 1969 Unknown [id number] 1969 Unknown [id number] [id number] 1969 Unknown [id number] [id number] 1969 Unknown [id number] 1969 Unknown [id number] 1969 Unknown [id number] .93 Medicaid [facility] [id number] Private Health Insurance [facility] [id number] Unknown [place] BC/BS [id number] Unknown [id number] Unknown [id number] .[id number] Unknown [id number] .[id number] Unknown [id number] .[id number] Unknown [id number] Unknown [id number] Social History Date Type Detail Facility Start: 11-24-2018 End: 05-03-2019 Tobacco smoking status [facility] Former smoker [facility] Start: 05-03-2019 History SDOH Alcohol Frequency 1 [facility] Start: 1970 Sex Assigned At Not on file [facility] Start: 05-31-2019 End: 10-27-2023 Tobacco smoking status [facility] Current some day smoker [facility] History of tobacco use Cigar Smoker [facility] Start: 05-31-2019 History SDOH Alcohol Frequency 3 [facility] Start: 06-06-2019 End: 01-08-2021 Alcohol intake Yes [facility] Start: 06-06-2019 Alcohol intake Current drinke r of alcohol (finding) [facility] Start: 1970 Sex Assigned At Male F [facility] Start: 10-26-2022 End: 05-03-2023 Tobacco smoking status [facility] Never smoked tobacco (finding) [facility] Start: 01-07-2023 End: 08-15-2023 Tobacco smoking status [facility] Smoker (finding) [facility] History of tobacco use Passive smoker [facility] Start: 10-27-2023 End: 11-10-2023 Tobacco use and exposure Smokeless tobacco non-user [facility] Start: 11-10-2023 Alcohol intake Lifetime non-d selma (finding) [facility] Start: 01-08-2021 End: 11-10-2023 History of Social function [facility] How often to you hav e a drink containing alcohol? 2-4 times a month [facility] How many standard drinks containing alcohol do you have on a typical day? 1 or 2 [facility] How often do you hav e 6 or more drinks on 1 occasion? Monthly [facility] Start: 05-10-2023 Alcohol Comment Caffeine: 1-2 cups/day pop [facility] Start: 10-31-2023 Alcohol intake Ex-drinker (finding) [facility] How often to you hav e a drink containing alcohol? Never [facility] Average Number of Drinks Not on file [facility] Start: 03-22-2024 Alcohol intake Current non-dr business continuity coordinator of alcohol (finding) [facility] Start: 11-24-2018 Alcohol Comment social [facility] Start: 07-03-2015 Sex [facility] (finding) [facility] Procedure Code Equipment Code Equipment Origin al Text Equipment Identifier Dates Discectomy, lumbar Bone-screw internal spinal fixation system, non-sterile [id number] FDA Start: 04-18-2020 Discectomy, lumbar Bone-screw internal spinal fixation system, non-sterile ()[id number] FDA Start: 04-18-2020 Discectomy, lumbar Bone-screw internal spinal fixation system, non-sterile ()[id number] FDA Start: 04-18-2020 Discectomy, lumbar Bone-screw internal spinal fixation system, non-sterile ()[id number] FDA Start: 04-18-2020 Discectomy, lumbar Bone-screw internal spinal fixation system, non-sterile ()[id number] FDA Start: 04-18-2020 MAS REDUCTION FIXATION ADD [...] REDUCTI ON 1 LEVEL FDA Start: 04-18-2020 1 strip by In Vitro route in the morning and 1 strip before bedtime. [id number] Start: 05-11-2023 USE DIRECTED DIRECTED WITH INSULIN [id number] Start: 12-05-2023 1 Lancet in the morning and 1 Lancet before bedtime. [id number] Start: 05-11-2023 Goals Date Patient Goal Desired Activity /State [...] & improved independence with ADL's/ IADL's. All terminal supervisor goals to be met in 6 weeks. Patient will report decreased pain levels no greater than a 1 during activity/ use and no night waking over a 5 day period. Patient will increase AROM of elbow and forearm to at least 0 extension of elbow and 80 supination for increased functional use with ADL's/ IADL's.. Patient will demonstrate increased strength of right sound cutter to at least a 70 for increased [...] Facility 05-05-2023 Functional status Patient at Baseline [facility] Work Phone: Mental Status Date Assessment Result Facility 05-05-2023 Cognitive function Cognitive Sta tus Patient at Baseline [facility] Work Phone: Clinical Notes 11-02-2023 to 03-22-2024 Discharge InstructionsAttachmentsTelephone Encounter - Rosa Dover CMA - 01/16/2024 11:07 AM ESTTelephone Encounter - Rosa Dover CMA - 01/16/2024 11:07 AM EST Note Date & Type Note Facility 03-22-2024 Hospital Discharg e instructions Gloria Pretty MD - 03/22/2024 3:57 PM EDT Rest, drink plenty of fluids. Eat foods high in magnesium, such as almond or cashew products, greens, black beans, soy products, brown rice, smooth peanut butter, seafood like salmon, milk products like yogurt or milk, bananas, avocados. Try to eat a well-balanced, healthy diet. Medications as prescribed. Follow-up with your healthcare provider. The following attachments cannot be sent through Care Everywhere.Oral Rehydration (Fijian)documented in this encounter [facility] 01-16-2024 Miscellaneous Notes Formattin g of this note might be different from the original. Images from the original note were not included. Message Received: Today DO Rosa Benoit [facility] I am also going to recommend this patient have repeat EGD in 5 years due to Ochoa's esophagus. Please give him a handout on Ochoa's esophagus. Thanks, Dr. Zavala ----- Message from Loy Campbell DO sent at 01/16/2024 9:52 AM EST ----- Please let patient know that he had erosive esophagitis and I recommend taking Protonix 40 mg b.i.d. and I sent in a prescription to his pharmacy for 2 month supply. He should refrain from alcohol tobacco and lots of caffeine more than 1-2 cups a day. If he has not better within a week or 2 let me know and will add Carafate to the regimen as well. Thanks. Dr. Zavala documented in this encounter [email or web address] 01-16-2024 Telephone encount er Note Images from the original note were not included. Message Received: Today DO Rosa Benoit CMA I am also going to recommend this patient have repeat EGD in 5 years due to Ochoa's esophagus. Please give him a handout on Ochoa's esophagus. ThanksDr. Zavala ----- Message from Loy Campbell DO sent at 01/16/2024 9:52 AM EST ----- Please let patient know that he had erosive esophagitis and I recommend taking Protonix 40 mg b.i.d. and I sent in a prescription to his pharmacy for 2 month supply. He should refrain from alcohol tobacco and lots of caffeine more than 1-2 cups a day. If he has not better within a week or 2 let me know and will add Carafate to the regimen as well. Thanks. Dr. Zavala [facility] 11-02-2023 Miscellaneous Notes Formattin g of this note might be different from the original. ----- Message from Loy Campbell DO sent at 11/02/2023 10:17 AM EST ----- Regarding: RE: Question Within the next month or so. ThanksDr. Zavala ----- Message ----- From: Lety Lin Sent: 11/02/2023 9:56 AM EST To: Loy Campbell DO; Rosa Dover CMA Subject: Question Dr. Campbell, Per your operative note, how soon do you wish to rescope this patient? Just let us know. Lety Ruiz Patient scheduled 12/14/23 at [facility]. Paperwork will be emailed to [facility] and instruction sheet will be mailed. documented in this encounter [facility] 11-02-2023 Telephone encount er Note ----- Message from Loy Campbell DO sent at 11/02/2023 10:17 AM EST ----- Regarding: RE: Question Within the next month or so. Thanks, Dr. Zavala ----- Message ----- From: Lety Lin Sent: 11/02/2023 9:56 AM EST To: Loy Campbell DO; Rosa Dover CMA Subject: Question Dr. Campbell, Per your operative note, how soon do you wish to rescope this patient? Just let us know. Lety Ruiz [facility] 11-02-2023 Telephone encount er Note Patient scheduled 12/14/23 at [facility]. Paperwork will be emailed to [facility] and instruction sheet will be mailed. [facility] Evaluation note No assessment inform ation available [facility] Work Phone: Evaluation note Diagnosis Onset Date Abdominal pain acute Acute kidney injury acute Acute prerenal azotemia acut e Diabetes acute Intractable nausea and vomiting acute [facility] Work Phone: Evaluation note* Diagnosis Nausea and vomiting, unspecified vomiting type- Primary Hypomagnesemia Disorders of magnesium metabolism Chronic GERD Type 2 diabetes mellitus with hyperglycemia, without long-term current use of insulin (HCC) Dehydration documented in this encounter [facility] Author Eldon Ambriz [facility] May 03, 2023 10:04pm Note Date/Time May 03, 2023 9:02p [facility] ENTER [address] [place] [address] Hospitalist H&P Signed Patient: Justice Aranda MR#: [id number] : 1970 Acct:[id number] Age/Sex: 52 / M Adm Date: 3 Loc: Room: [address] [place] [address] Type: ADM IN Attending Dr: Eldon Ambriz MD Copies to: MD Crow Strange,~ HPI DATE OF EXAMINATION: 05/03/23 CHIEF COMPLAINT: Nausea, vomiting HISTORY OF PRESENT ILLNESS: Mr. Aranda is a 52-year-old male with PMH of hsl-iomoopu-ktellfckb diabetes mellitus who presents to the emergency [...] with creatinine of 2.23 from previous baselineof 0.8- 1.0. Case was then discussed between myself and [...] % (Auto) 13.0 % (.) 05/03/23 14:06 Hubbard % (Auto) 6.1 % (.) 05/03/23 14:06 Eos % (Auto) 0.2 % (.) 05/03/23 14:06 Baso % (Auto) 0.3 % (.) 05/03/23 14:06 Nucleat RBC Rel Count 0.1 /100 WBC (0-0.5) 05/03/23 14:06 Neut # (Auto) 6.2 x10E3/uL (1.8-7.7) 05/03/23 14:06 Lymph # (Auto) 1.0 x10E3/uL (1.00-4.8) 05/03/23 14:06 Hubbard # (Auto) 0.5 x10E3/uL (0.0-0.8) 05/03/23 14:06 [...] pH 5.5 (5.0-9.0) 05/03/23 16:50 Ur Specific Gary 1.013 (1.001-1.030) 05/03/23 16:50 Urine Protein Negative [...] <Electronically signed by Eldon Ambriz MD> 05/03/232203 [facility] Work Phone: Hospital Discharge instructions Additional Instructions [place] diet as tolerated start with clear fluids such as Gatorade Powerade then add toast and other bland foods Try to avoid anything spicy fatty or fried May take 1 Zofran every 8 hours for nausea vomiting May take dusx-umq-hnuuhhm Tylenol or ibuprofen for discomfort Follow-up with family doctor and gastroenterology Return to the ER for more severe pain vomiting despite medication high fever or any other [facility] Work [facility]: Hospital Discharge instructions Additional Instructions Today you [...] including but not limited to those listed previously.[facility] Work Phone: InstructionsNot on filedocumented in this encounter [facility] on filedocumented in this encounter [facility] SystemInstructionsNot on filedocumented in this encounter [facility] note Author Eldon Ambriz [facility] May 04, 2023 1:06pm Note Date/Time May 04, 2023 12:51 pm [facility] ENTER [address] [place] [address] Hospitalist Progress Note Signed 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 MR#: [id number] : 1970 Acct:[id number] Age/Sex: 52 / M Adm Date: 3 Loc: Room: [address] [place] [address] Type: ADM IN Attending Dr: Eldon Ambriz [...] Dose Route Start Last Admin Trade Name Hakeem PRN Reason Stop Dose Admin Acetaminophen 650 [...] Lactated Ringers IV 05/02/24 20:44 125 mls/hr .[id number] MARIBEL Administration Insulin Aspart 0 units 05/03/23 [...] code Documented By: Eldon Ambriz MD 3 1249 Signed By: <Electronically signed by Eldon Ambriz MD> 05/04/23 1306 [facility] Work Phone: Discharge Instructions * Attachments The following attachments cannot be sent through Care Everywhere. * Dizziness, Uncertain Cause (Fijian) * Fatigue, Managing (Fijian) documented in this encounter* Instructions* Ivett Vargas [...] be sent through Care Everywhere. * Dehydration (Fijian) * Pancreatitis: Acute: General Info (Fijian) documented in this encounter* Instructions* Ivett Vargas MD - 05/31/2019 Patient medically cleared for incarceration Avoid alcohol in excess Will need psychiatric follow-up Return if worse * Attachments The following attachments cannot be sent through Care Everywhere. * Alcohol Intoxication: Acute (Fijian) * Depression ([facility]) (Fijian) * Suicidal Thoughts (Fijian) documented in this encounter* Instructions* Leilani Monge MD - 05/26/2019 Avoid sun exposure. Drink plenty of fluids. See attached instruction for the high blood sugar diet controlled as advised. High magnesium diet and can buy magnesium tablets cxmt-sku-haqhmam 200 mg each take once a day. Continue on baby aspirin daily. Use Silvadene for sunburn once a day. * Attachments The following attachments cannot be sent through Care Everywhere. * Hyperglycemia: General Info (Fijian) * Magnesium Test (Fijian) documented in this encounter* Instructions* Ivett Vargas MD - 06/04/2019 You have right elbow sprain Follow up with [facility] in [place] in 1-2 days You will need a primary care, call the hospital and speak with the Retail Wireless Associate about obtaining an appointment Apply alternating ice and heat for 30 mins to right elbow Can remove vickey wrap when sleeping Return if worse * Attachments The following attachments cannot be sent through Care Everywhere. * Elbow: Exercises (Fijian) * Elbow Sprain (Fijian) documented in this encounter Assessments Diagnosis Fatigue, [...] RIGHT 3+ VIEWS Hang Walter MD [address] [place] [address] Status Reason Specialty Diagnoses / Procedures Referred By Contact Referred To Contact Authorized Occupational Therapy Diagnoses Right elbow pain Loy Abreu, DO [address] [place] [address] Status Reason Specialty Diagnoses / Procedures Referred By Contact Referred To Contact New Request Diagnoses Hyperglycemia Hypomagnesemia Elevated serum glucose with glucosuria Procedures ECG Leilani Monge MD [address] [place] [address] Summary Purpose Family History Relationship Condition Age at Onset Recorded Date/T onofre Not Specified Parkinson's disease Unknown sister Diabetes mellitus Unknown Advance Directives Advance Directive Response Recorded Date/ Time Advance Directives No July 2:28pm Advance Directive Response Recorded Date/ Time Advance Directives No July 3:28pm History of Present Illness * Sofiya Avina, OT - 09/24/2019 10:56 AM EDT [facility]ly [facility] Occupational Therapy [address] [place] [address] [facility] [address] Loy Abreu DO [address] [place] [address] Visit Date: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
[2024-11-27 10:18] LABS: Glucometer 235 mg/dL (74-106)
--- NOTE | 2024-11-27 10:36 | ED.NAVMDI1 ---
HPI - Nausea/Vomiting/Diarrhea General Chief complaint: Nausea/Vomiting/Diarrhea Stated complaint: NAUSEA/VOMITING Time Seen by Provider: 11/27/24 10:31 Source: patient Mode of arrival: walk-in Limitations: no limitations History of Present Illness HPI Narrative: 54-year-old male presents for nausea and vomiting without diarrhea. This time he had it for a week. This has been happening intermittently for the past year and he states he had some scopes, both upper and lower, for 5 months ago. He never got the results. No hematemesis or fever or injury. He states he has been losing weight over the past week. Related Data Home Medications ?Medication ?Instructions ?Recorded ?Confirmed liraglutide 0.6 mg/0.1 mL (18 mg/3 1.8 mg subcut DAILY 08/16/23 01/04/24 mL) subcutaneous pen injector ([employer] 2-Lg) blood sugar diagnostic ([employer] 10/28/23 10/28/23 Ultra Test strips) blood-glucose meter ([employer] 10/28/23 10/28/23 Lite Meter kit) blood-glucose meter ([employer] 10/28/23 10/28/23 Ultra2 Meter) pantoprazole 20 mg tablet,delayed 20 mg PO DAILY 10/28/23 01/04/24 release (Protonix) Previous Rx's ?Medication ?Instructions ?Recorded ondansetron HCl 4 mg tablet 4 mg PO Q6H PRN nausea and 08/16/23 vomiting #20 tabs pantoprazole 40 mg tablet,delayed 40 mg PO BID Erosive esophagitis 01/04/24 release (Protonix) and gastritis #60 tabs sucralfate 1 gram tablet 1 g PO Q6H 4 weeks #112 tabs 01/04/24 ondansetron 4 mg disintegrating 4 mg PO Q6H PRN nausea and 11/27/24 tablet vomiting #20 tabs Allergies Allergy/AdvReac Type Severity Reaction Status Date / Time bupropion (From Wellbutrin) AdvReac Intermediate Rash Verified 10/31/23 15:01 Review of Systems ROS Narrative A ten point review of systems is negative except as noted above. PFSH PFS Medical History (Updated 11/27/24 @ 12:39 by Anders Duncan MD) Nausea ?R11.0 - Nausea (ICD-10) GERD (gastroesophageal reflux disease) ?K21.9 - Gastro-esophageal reflux disease without esophagitis (ICD-10) Diabetes ?E11.9 - Type 2 diabetes mellitus without complications (ICD-10) Vomiting ?R11.10 - Vomiting, unspecified (ICD-10) Colitis ?K52.9 - Noninfective gastroenteritis and colitis, unspecified (ICD-10) Surgical History (Updated 12/26/23 @ 13:44 by Karen Burris, RN) H/O colonoscopy ?Z98.890 - Other specified postprocedural states (ICD-10) S/P spinal surgery ?Z98.890 - Other specified postprocedural states (ICD-10) Family History (Updated 12/26/23 @ 13:59 by Karen Burris, RN) Other Parkinsons disease Social History (Updated 12/26/23 @ 14:00 by Karen Burris RN) Within the past year, how often did you have a drink containing alcohol: monthly or less Within the past year, how often did you have six or more drinks on one occasion: never Smoking status: Never smoker Second hand tobacco smoke exposure: No Non-prescribed substance use: denies use Previous occupational history: [employer] Known occupational exposures/hazards: No Highest level of school completed/degree received: high school graduate Little interest or pleasure in doing things: not at all Feeling down, depressed, or hopeless: not at all Exam Narrative Exam Narrative: Nurses note and vital signs reviewed and patient is not hypoxic. General: The patient appears well and in no apparent distress. Patient is resting comfortably on cart. Skin: Warm, dry, no pallor noted. There is no rash noted. Head: Normocephalic, atraumatic Eye: Normal conjunctiva, no drainage Ears, Nose, Mouth, and Throat: oral mucosa is moist. Nares patent. Cardiovascular: Regular Rate and Rhythm Respiratory: Patient is in no distress, no accessory muscle use, lungs are clear to auscultation, no wheezing, rales or rhonchi Back: non-tender GI: Soft and nontender Musculoskeletal: The patient has no evidence of calf tenderness, no pitting edema, symmetrical pulses noted bilaterally Neurological: A&O, normal speech Psychiatric: Cooperative Constitutional Vital Signs, click to edit/add: Last Vital Signs Temp 98.1 F 11/27/24 10:05 Pulse 71 11/27/24 10:05 Resp 18 11/27/24 10:05 BP 136/74 11/27/24 10:05 Pulse Ox 99 11/27/24 10:05 O2 Del Method Room Air 11/27/24 10:05 Course Vital Signs Vital signs: Vital Signs Temperature 98.1 F 11/27/24 10:05 Pulse Rate 71 11/27/24 10:05 Respiratory Rate 18 11/27/24 10:05 Blood Pressure 136/74 11/27/24 10:05 Pulse Oximetry 99 11/27/24 10:05 Oxygen Delivery Method Room Air 11/27/24 10:05 Temperature 98.1 F 11/27/24 10:05 Pulse Rate 71 11/27/24 10:05 Respiratory Rate 18 11/27/24 10:05 Blood Pressure 136/74 11/27/24 10:05 Pulse Oximetry 99 11/27/24 10:05 Oxygen Delivery Method Room Air 11/27/24 10:05 MDM - Nausea/Vomiting/Diarrhea MDM Narrative Medical decision making narrative: I reviewed his CAT scan from a year ago that was negative. Blood test today are negative as well. He is prescribed Zofran and he will follow-up with his doctor. He has already had endoscopy. Treatment diagnosis and follow-up were discussed with the patient. The possibility that this could be stress-induced was discussed with the patient. Differential Diagnosis Differential diagnosis: Likely food poisoning, gastroenteritis and dehydration Lab Data Attestation: I reviewed the patient's lab results. Labs: Lab Results 11/27/24 11/27/24 11/27/24 Range/Units 10:13 10:17 10:55 WBC 6.4 (4.0-11.0) 10^3/uL RBC 4.17 L (4.70-6.10) 10^6/uL Hgb 13.5 L (14.0-18.0) g/dL Hct 37.4 L (42.0-54.0) % MCV 89.7 (80.0-94.0) fL MCH 32.4 (25.9-34.0) pg MCHC 36.1 H (29.9-35.2) g/dL RDW 12.2 (11.0-15.0) % Plt Count 208 (150-450) 10^3/uL MPV 11.7 (9.5-13.5) fL Neut % (Auto) 59.4 (43.0-75.0) % Lymph % (Auto) 28.3 (20.5-60.0) % [place] % (Auto) 8.9 (1.7-12.0) % Eos % (Auto) 2.0 (0.9-7.0) % Baso % (Auto) 1.1 (0.2-2.0) % Neut # (Auto) 3.8 (1.4-6.5) 10^3/uL Lymph # (Auto) 1.8 (1.2-3.8) 10^3/uL [place] # (Auto) 0.6 (0.3-0.8) 10^3/uL Eos # (Auto) 0.1 (0.0-0.7) 10^3/uL Baso # (Auto) 0.1 (0.0-0.1) 10^3/uL Abs Immat Gran (auto) 0.02 (0.00-0.03) 10^3/uL Imm/Tot Granulo (auto) 0.3 (0.0-0.5) % Sodium 138 (136-145) mmol/L Potassium 3.7 (3.5-5.1) mmol/L Chloride 100 (98-107) mmol/L Carbon Dioxide 32.4 H (21.0-32.0) mmol/L Anion Gap 9.3 BUN 41.0 H (7.0-18.0) mg/dL Creatinine 1.45 H (0.70-1.30) mg/dL Est GFR ( Amer) >60 (>=60 mL/min/1.73m^2) Est GFR (Non-Af Amer) 51 L (>=60 mL/min/1.73m^2) BUN/Creatinine Ratio 28.3 Glucose 257 H (74-106) mg/dL Calcium 8.9 (8.5-10.1) mg/dL Magnesium 1.4 L (1.8-2.4) mg/dL Total Bilirubin 0.3 (0.2-1.0) mg/dL Direct Bilirubin 0.1 (0.0-0.2) mg/dL AST 10 L (15-37) U/L ALT 22 (16-63) U/L Alkaline Phosphatase 71 (46-116) U/L Total Protein 6.7 (6.4-8.2) g/dL Albumin 3.0 L (3.4-5.0) g/dL Globulin 3.7 g/dL Albumin/Globulin Ratio 0.8 Amylase 75 (25-115) U/L Lipase 147.0 H (16.0-77.0) U/L Urine Color Yellow (YELLOW) Urine Clarity Clear (CLEAR) Urine pH 5.5 (5.0-9.0) Ur Specific [place] >=1.030 A (1.005-1.025) Urine Protein >=300 A (NEG/TRACE) mg/dL Urine Glucose (UA) >=1000 A (NEGATIVE) mg/dL Urine Ketones Negative (NEGATIVE) mg/dL Urine Occult Blood Moderate A (NEGATIVE) Urine Nitrite Negative (NEGATIVE) Urine Bilirubin Negative (NEGATIVE) Urine Urobilinogen 1.0 (0.2-1.0) EU/dL Ur Leukocyte Esterase Negative (NEGATIVE) Urine RBC 2-5 A (0-2) #/HPF Urine WBC None seen (NONE SEEN) #/HPF Ur Squamous Epith Cells Few A (NONE/RARE) #/LPF Urine Bacteria None seen (NONE SEEN) #/HPF Urine Mucus Small A (NONE SEEN) POC Glucose 235 H (74-106) mg/dL Discharge Plan Discharge Chief Complaint: Nausea/Vomiting/Diarrhea Clinical Impression: Nausea and vomiting Patient Disposition: Home, Self-Care Time of Disposition Decision: 12:39 Condition: Good Mode of Transportation: Private Vehicle Prescriptions / Home Meds: New ondansetron 4 mg tablet,disintegrating 4 mg PO Q6H PRN (Reason: nausea and vomiting) Qty: 20 0RF No Action Victoza 2-Lg 0.6 mg/0.1 mL (18 mg/3 mL) pen injector 1.8 mg subcut DAILY Rx Instructions: inject 0.6mg subcutaneously once daily x 7 days; then 1.2mg daily, not to exceed 1.8mg/day ondansetron HCl 4 mg tablet 4 mg PO Q6H PRN (Reason: nausea and vomiting) Qty: 20 0RF pantoprazole [Protonix] 40 mg tablet,delayed release (DR/EC) 40 mg PO BID Qty: 60 1RF sucralfate 1 gram tablet 1 g PO Q6H 28 Days Qty: 112 0RF (DME) blood-glucose meter [OneTouch Ultra2 Meter] Misc MISCELLANEOUS (DME) OneTouch Ultra Test Strip MISCELLANEOUS (DME) blood-glucose meter [[employer] Lite Meter] Kit MISCELLANEOUS pantoprazole [Protonix] 20 mg tablet,delayed release (DR/EC) 20 mg PO DAILY Print Language: Palestinian Instructions: Acute Nausea and Vomiting (ED) Referrals: KAYY DEAN [Primary Care Provider] - 1 week
[2024-11-27 10:42] LABS: Basophils Absolute Auto 0.1 10^3/uL (0.0-0.1); Basophils Percent Auto 1.1 % (0.2-2.0); Eosinophils Absolute Auto 0.1 10^3/uL (0.0-0.7); Hematocrit 37.4 % (42.0-54.0); Hemoglobin 13.5 g/dL (14.0-18.0); Immature Granulocytes Abs Auto 0.02 10^3/uL (0.00-0.03); Immature Granulocytes Pct Auto 0.3 % (0.0-0.5); Lymphocytes Absolute Auto 1.8 10^3/uL (1.2-3.8); Lymphocytes Percent Auto 28.3 % (20.5-60.0); Mean Corpuscular HGB Conc 36.1 g/dL (29.9-35.2); Mean Corpuscular Hemoglobin 32.4 pg (25.9-34.0); Mean Corpuscular Volume 89.7 fL (80.0-94.0); Mean Platelet Volume 11.7 fL (9.5-13.5); Monocytes Absolute Auto 0.6 10^3/uL (0.3-0.8); Monocytes Percent Auto 8.9 % (1.7-12.0); Neutrophils Absolute Auto 3.8 10^3/uL (1.4-6.5); Neutrophils Percent Auto 59.4 % (43.0-75.0); Platelet Count 208 10^3/uL (150-450); Red Blood Count 4.17 10^6/uL (4.70-6.10); Red Cell Distribution Width 12.2 % (11.0-15.0); White Blood Count 6.4 10^3/uL (4.0-11.0)
[2024-11-27] MEDS: 0.9 % SODIUM CHLORIDE 1,000 ML 1000 ML IV (10:57)
[2024-11-27] MEDS: ONDANSETRON PF 4 MG/2 ML VIAL IV (10:57)
[2024-11-27 10:58] LABS: Alanine Aminotransferase 22 U/L (16-63); Albumin Globulin Ratio 0.8; Alkaline Phosphatase 71 U/L (46-116); Anion Gap 9.3; Aspartate Amino Transferase 10 U/L (15-37); BUN Creatinine Ratio 28.3; Bilirubin Direct 0.1 mg/dL (0.0-0.2); Bilirubin Total 0.3 mg/dL (0.2-1.0); Calcium 8.9 mg/dL (8.5-10.1); Carbon Dioxide 32.4 mmol/L (21.0-32.0); Chloride 100 mmol/L (98-107); Estimated GFR (African America >60 (>=60 mL/min/1.73m^2); Estimated GFR (Non-African Ame 51 (>=60 mL/min/1.73m^2); Globulin 3.7 g/dL; Glucose 257 mg/dL (74-106); Potassium 3.7 mmol/L (3.5-5.1); Sodium 138 mmol/L (136-145); Total Protein 6.7 g/dL (6.4-8.2)
[2024-11-27 11:10] LABS: Amylase 75 U/L (25-115)
[2024-11-27 11:12] LABS: Magnesium 1.4 mg/dL (1.8-2.4)
[2024-11-27 11:37] LABS: Bilirubin Urine NEGATIVE (NEGATIVE); Blood Urine MODERATE (NEGATIVE); Clarity Urine CLEAR (CLEAR); Color Urine YELLOW (YELLOW); Glucose Urine UA >=1000 mg/dL (NEGATIVE); Ketones Urine NEGATIVE (NEGATIVE); Leukocyte Esterase Urine NEGATIVE (NEGATIVE); Nitrite Urine NEGATIVE (NEGATIVE); Protein Urine >=300 mg/dL (NEG/TRACE); Specific Gravity Urine >=1.030 (1.005-1.025); pH Urine 5.5 (5.0-9.0)
[2024-11-27 11:56] LABS: WBC Urine NONE SEEN #/HPF (NONE SEEN)
[2024-11-27 11:57] LABS: Bacteria Urine NONE SEEN #/HPF (NONE SEEN)
[2024-11-27 11:58] LABS: Mucus Urine SMALL (NONE SEEN); Squamous Epithelial Cell Urine FEW #/LPF (NONE/RARE)
== END 2024-11-27 12:50 | disposition home or self-care (01) ==
PROVIDERS: Emergency Provider Emergency Medicine; PCP Internal Medicine
DX: R11.2 Nausea with vomiting, unspecified (principal)
CPT/HCPCS: 36415; 80048; 80076; 81001; 82150; 82948; 83690; 83735; 85025; 96361; 96374; 99284; J2405